=== PATIENT | female | born 1955 | race Caucasian/White ===

== ENCOUNTER 2018-06-18 12:55 | Observation (INO) | payer OTHER ==
[2018-06-18] MEDS ORDERED: Levofloxacin500mg IV 500 MG/100 ML BAG IV ONE (13:31)
[2018-06-18] MEDS ORDERED: ALBUTEROL 2.5 MG/3 ML NEB SOL ONE (13:31)
[2018-06-18] MEDS ORDERED: METHYLPREDNISOLONE 125 MG INJ ONE (13:31)
[2018-06-18] MEDS ORDERED: IPRATROPIUM BROM 0.5MG/2.5ML ONE (13:31)
[2018-06-18] MEDS ORDERED: NA CHLORIDE 0.9% 1,000 ML ONE (13:31)
--- NOTE | 2018-06-18 13:46 | RAD REPORT ---
EXAM DESCRIPTION: RAD - Chest Single View - 06/18/2018 1:41 pm CLINICAL HISTORY: COUGH Chest pain. COMPARISON: Chest Single View dated 02/04/2017; Chest Single View dated 02/03/2017; Chest Single View dated 10/13/2016; Chest Single View dated 10/12/2016 FINDINGS: Portable technique limits examination quality. A chronic left pleural effusion is suspected. Mild interstitial prominence may represent mild interst itial pulmonary edema. Linear opacity in the right lung base suggests subsegmental atelectasis. The h eart is normal in size. No displaced fractures. IMPRESSION: Mild CHF versus volume overload pattern.
[2018-06-18 13:58] LABS: Absolute Lymphocytes (CBC) 2.1 K/uL (0.7-4.9); Absolute Monocytes 0.8 K/uL (0.1-1.3); Basophils % 0.5 % (0-1.3); Eosinophils % 1.7 % (0-4.4); Hematocrit 45.4 % (36.0-45.0); Lymphocytes % 15.1 % (15.3-44.8); MCH 26.2 pg (27.0-35.0); MCV 79.3 fL (80-100); MPV 9.3 fL (7.6-11.3); Monocytes % 5.4 % (3.3-12.3); RBC Red Blood Cell Count 5.72 M/uL (3.86-4.86)
[2018-06-18 13:59] LABS: Arterial Blood Carboxyhemoglob 2.6 % (0-1.5); Blood Gas Oxyhemoglobin 82.5 % (94-97); Blood O2 Saturation 85.5 % (92-98.5)
[2018-06-18 14:06] LABS: Protime INR 1.01
[2018-06-18 14:15] LABS: ALT/SGPT 107 U/L (12-78); AST/SGOT 37 U/L (15-37); Albumin 3.9 g/dL (3.4-5.0); Alkaline Phosphatase 179 U/L (45-117); BUN Blood Urea Nitrogen 15 mg/dL (7-18); Bicarbonate 30 mmol/L (21-32); Bilirubin Direct 0.1 mg/dL (0-0.2); Bilirubin Total 0.6 mg/dL (0.2-1.0); Glucose Level 210 mg/dL (74-106); Lipase 89 U/L (73-393); NT PRO-BNP 294 pg/mL (<125); Potassium 4.4 mmol/L (3.5-5.1); Protein, Total 9.2 g/dL (6.4-8.2); Sodium Level 135 mmol/L (136-145); Troponin (Emerg Dept Use Only) < 0.02 ng/mL (0.0-0.045)
--- NOTE | 2018-06-18 15:06 | EDPHYS ---
Physician Documentation [facility] Name: Nakia Turcios Age: 62 yrs Sex: Female : 1955 Arrival Date: 06/18/2018 Time: 12:57 Bed 2 Private MD: Erasmo Jimenez ED Physician Luis Angel Romero HPI: 06/18 14:58 This 62 yrs old Female presents to ER via Wheelchair with complaints of LOW anuja O2. 14:58 The patient has shortness of breath at rest. Onset: The symptoms/episode began/occurred anuja 3 day(s) ago. Duration: The symptoms are continuous, and are steadily getting worse. The patient's shortness of breath is aggravated by coughing, exertion, is alleviated by elevating head, inhaler, nebulizer treatment, application of supplemental oxygen. The patient or guardian reports airway noise, cough, difficulty breathing. Modifying factors: The symptoms are alleviated by elevating head, the symptoms are aggravated by nothing. Associated signs and symptoms: The patient has no apparent associated signs or symptoms. Historical: - Allergies: 13:14 Codeine (Anaphylaxis); ss 13:14 FLU VACCINE; ss - Home Meds: 14:17 Albuterol Inhl 4 times per day [Active]; alprazolam 1 mg Oral tab 3 times per day for tw2 Anxiety [Active]; aspirin 81 mg Oral chew 1 tab once daily [Active]; atorvastatin 20 mg Oral tab 1 tab nightly [Active]; bupropion HCl 150 mg Oral TbER 1 tab 2 times per day [Active]; Chantix 1 mg Oral tab 2 times per day [Active]; clopidogrel 75 mg Oral tab [Active]; Daliresp 500 mcg Oral tab 1 tab once daily [Active]; Depakene 250 mg Oral cap twice a day [Active]; diltiazem HCl 120 mg Oral CDER 1 cap once daily [Active]; divalproex 250 mg Oral Tb24 2 tabs once daily [Active]; hydromorphone 4 mg Oral tab 1 tab every 4 hours [Active]; Insulin: Novolin 70/30 130 units in am and 105 at night Sub-Q [Active]; lisinopril 10 mg Oral tab [Active]; Lyrica 300mg Oral 2 times per day [Active]; mirtazapine 30 mg Oral tab [Active]; montelukast 10 mg Oral tab once daily [Active]; pravastatin 40 mg Oral tab 1 tab once daily [Active]; prednisone 10 mg Oral tab once daily [Active]; Proventil Inhl four times a day [Active]; sertraline 100 mg Oral tab 1 tab once daily [Active]; - PMHx: 13:14 Diabetes - IDDM; Hypertension; neuropathy; COPD; ss - PSHx: 13:14 Cholecystectomy; Hysterectomy; Appendectomy; ss - Immunization history:: Adult Immunizations up to date. - Social history:: Smoking status: Patient uses tobacco products, smokes one pack cigarettes per day. - Ebola Screening: : Patient denies exposure to infectious person Patient denies travel to an Ebola-affected area in the 21 days before illness onset. - Family history:: not pertinent. ROS: 14:59 Constitutional: Negative for fever, chills, and weight loss, Eyes: Negative for injury, anuja pain, redness, and discharge, ENT: Negative for injury, pain, and discharge, Neck: Negative for injury, pain, and swelling, Abdomen/GI: Negative for abdominal pain, nausea, vomiting, diarrhea, and constipation, Back: Negative for injury and pain, : Negative for injury, bleeding, discharge, and swelling, MS/Extremity: Negative for injury and deformity, Skin: Negative for injury, rash, and discoloration, Neuro: Negative for headache, weakness, numbness, tingling, and seizure, Psych: Negative for depression, anxiety, suicide ideation, homicidal ideation, and hallucinations, Allergy/Immunology: Negative for hives, rash, and allergies, Endocrine: Negative for neck swelling, polydipsia, polyuria, polyphagia, and marked weight changes, Hematologic/Lymphatic: Negative for swollen nodes, abnormal bleeding, and unusual bruising. 14:59 Cardiovascular: Positive for palpitations. 14:59 Respiratory: Positive for cough, dyspnea on exertion, shortness of breath, wheezing, inspiratory, expiratory. Exam: 15:00 Constitutional: This is a well developed, well nourished patient who is awake, alert, anuja and in no acute distress. Head/Face: Normocephalic, atraumatic. Eyes: Pupils equal round and reactive to light, extra-ocular motions intact. Lids and lashes normal. Conjunctiva and sclera are non-icteric and not injected. Cornea within normal limits. Periorbital areas with no swelling, redness, or edema. ENT: Nares patent. No nasal discharge, no septal abnormalities noted. Tympanic membranes are normal and external auditory canals are clear. Oropharynx with no redness, swelling, or masses, exudates, or evidence of obstruction, uvula midline. Mucous membranes moist. Neck: Trachea midline, no thyromegaly or masses palpated, and no cervical lymphadenopathy. Supple, full range of motion without nuchal rigidity, or vertebral point tenderness. No Meningismus. Chest/axilla: Normal chest wall appearance and motion. Nontender with no deformity. No lesions are appreciated. Cardiovascular: Regular rate and rhythm with a normal S1 and S2. No gallops, murmurs, or rubs. Normal PMI, no JVD. No pulse deficits. Abdomen/GI: Soft, non-tender, with normal bowel sounds. No distension or tympany. No guarding or rebound. No evidence of tenderness throughout. Back: No spinal tenderness. No costovertebral tenderness. Full range of motion. Female : Normal external genitalia. Skin: Warm, dry with normal turgor. Normal color with no rashes, no lesions, and no evidence of cellulitis. MS/ Extremity: Pulses equal, no cyanosis. Neurovascular intact. Full, normal range of motion. Neuro: Awake and alert, GCS 15, oriented to person, place, time, and situation. Cranial nerves II-XII grossly intact. Motor strength 5/5 in all extremities. Sensory grossly intact. Cerebellar exam normal. Normal gait. Psych: Awake, alert, with orientation to person, place and time. Behavior, mood, and affect are within normal limits. 15:00 Respiratory: mild respiratory distress is noted, Respirations: labored breathing, that is mild, Breath sounds: decreased breath sounds, rhonchi, stridor, is not appreciated, wheezing: inspiratory expiratory 15:23 Musculoskeletal/extremity: DVT Exam: No signs of deep vein thrombosis. no pain, no anuja tenderness, negative Homans' sign noted on exam, no appreciated bluish discoloration, no erythema, no increased warmth, swelling, that is mild, of the right leg, of the left leg. Vital Signs: 13:05 BP 157 / 68; Pulse 107; Resp 16; Pulse Ox 77% on R/A; tw2 13:14 BP 157 / 58; Pulse 111; Resp 22; Pulse Ox 72% on R/A; Weight 79.38 kg; Height 5 ft. 2 ss in. (157.48 cm); Pain 7/10; 14:05 BP 136 / 46; Pulse 108; Resp 20; Pulse Ox 89% on 4 lpm NC; tw2 14:13 Temp 97.9(TE); tw2 15:14 BP 121 / 81; Pulse 107; Resp 23; Pulse Ox 86% on 4 lpm NC; tw2 16:15 BP 137 / 66; Pulse 101; Resp 20; Pulse Ox 89% on 4 lpm NC; tw2 17:05 BP 151 / 69; Pulse 106; Resp 20; Pulse Ox 90% on 4 lpm NC; tw2 13:14 Body Mass Index 32.01 (79.38 kg, 157.48 cm) ss 13:05 pt placed on 3L NC, pt at 85% at this time, will continue to monitor tw2 MDM: 13:13 Patient medically screened. [facility] 15:01 Data reviewed: vital signs, nurses notes, lab test result(s), EKG, radiologic studies, anuja plain films. 06/18 13:17 Order name: Basic Metabolic Panel; Complete Time: 14:56 [facility] 06/18 13:17 Order name: CBC with Diff; Complete Time: 14:56 [facility] 06/18 13:17 Order name: LFT's; Complete Time: 14:56 [facility] 06/18 13:17 Order name: Magnesium; Complete Time: 14:56 [facility] 06/18 13:17 Order name: NT PRO-BNP; Complete Time: 14:56 [facility] 06/18 13:17 Order name: PT-INR; Complete Time: 14:56 [facility] 06/18 13:17 Order name: Troponin (emerg Dept Use Only); Complete Time: 14:56 [facility] 06/18 13:17 Order name: Blood Culture Adult (2) [facility] 06/18 13:17 Order name: Lipase; Complete Time: 14:56 [facility] 06/18 13:17 Order name: Procalcitonin; Complete Time: 14:56 [facility] 06/18 13:17 Order name: ABG; Complete Time: 14:56 [facility] 06/18 13:17 Order name: Urine Culture [facility] 06/18 15:22 Order name: Stool Culture [facility] 06/18 15:22 Order name: Fecal Leukocyte Stain [facility] 06/18 13:17 Order name: XRAY Chest (1 view); Complete Time: 14:56 [facility] 06/18 13:17 Order name: EKG; Complete Time: 13:18 [facility] 06/18 13:17 Order name: Cardiac monitoring; Complete Time: 13:39 [facility] 06/18 13:17 Order name: EKG - Nurse/Tech; Complete Time: 13:39 [facility] 06/18 13:17 Order name: IV Saline Lock; Complete Time: 13:39 [facility] 06/18 13:17 Order name: Labs collected and sent; Complete Time: 13:40 [facility] 06/18 13:17 Order name: O2 Per Protocol; Complete Time: 13:40 [facility] 06/18 15:11 Order name: CONS Physician Consult [facility] 06/18 15:11 Order name: Echo with Doppler [facility] 06/18 15:22 Order name: CDIFF [facility] 06/18 15:22 Order name: ABG [facility] 06/18 16:53 Order name: Add On-Lab [facility] 06/18 13:17 Order name: O2 Sat Monitoring; Complete Time: 13:40 [facility] Administered Medications: 13:20 Drug: NS 0.9% 1000 ml Route: IV; Rate: 125 ml/hr; Site: left antecubital; tw2 17:07 Follow up: IV Status: Infusion continued upon admission tw2 13:20 Drug: SOLU-Medrol 125 mg Route: IVP; Site: right antecubital; tw2 14:30 Follow up: Response: No adverse reaction tw2 13:20 Drug: Albuterol - atroVENT (3:1) (2.5 mg - 0.5 mg) 3 ml Route: Nebulizer; tw2 14:30 Follow up: Response: No adverse reaction tw2 13:35 Drug: levofloxacin 500 mg Volume: 100 ml; Route: IVPB; Infused Over: 60 mins; Site: tw2 left antecubital; 14:40 Follow up: Response: No adverse reaction; IV Status: Completed infusion tw2 Disposition: 06/18/18 15:05 Hospitalization ordered by Jose Eduardo Fowler for Observation. Preliminary diagnosis are Hypoxemia, Chronic obstructive pulmonary disease with (acute) exacerbation, Type 1 diabetes mellitus, Tobacco abuse counseling, Tobacco use, Elevated white blood cell count. - Bed requested for Telemetry/MedSurg (observation). - Status is Observation. tw2 - Condition is Fair. - Problem is new. - Symptoms have improved. UTI on Admission? No Signatures: Dispatcher [employer] EDMS Shasha Pendleton Flakita Mcgee RN RN Luis Angel Johnson MD MD cha Smirch, Shelby, RN RN ss Mi Acosta RN RN tw2 Corrections: (The following items were deleted from the chart) 15:46 15:05 Hospitalization Ordered by Jose Eduardo Fowler DO for Inpatient Admission. Preliminary dw diagnosis is Hypoxemia; Chronic obstructive pulmonary disease with (acute) exacerbation; Type 1 diabetes mellitus; Tobacco abuse counseling; Tobacco use; Elevated white blood cell count. Bed requested for Telemetry/MedSurg (Inpatient). Status is Inpatient Admission. Condition is Fair. Problem is new. Symptoms have improved. UTI on Admission? No. anuja 15:56 15:46 06/18/2018 15:05 Hospitalization Ordered by Jose Eduardo Fowler DO for Inpatient anuja Admission. Preliminary diagnosis is Hypoxemia; Chronic obstructive pulmonary disease with (acute) exacerbation; Type 1 diabetes mellitus; Tobacco abuse counseling; Tobacco use; Elevated white blood cell count. Bed requested for Telemetry/MedSurg (Inpatient). Status is Inpatient Admission. Condition is Fair. Problem is new. Symptoms have improved. UTI on Admission? No. dw 16:49 15:56 06/18/2018 15:05 Hospitalization Ordered by Jose Eduardo Fowler DO for Observation. bd Preliminary diagnosis is Hypoxemia; Chronic obstructive pulmonary disease with (acute) exacerbation; Type 1 diabetes mellitus; Tobacco abuse counseling; Tobacco use; Elevated white blood cell count. Bed requested for Telemetry/MedSurg (observation). Status is Observation. Condition is Fair. Problem is new. Symptoms have improved. UTI on Admission? No. anuja 17:57 16:49 06/18/2018 15:05 Hospitalization Ordered by Jose Eduardo Fowler DO for Observation. tw2 Preliminary diagnosis is Hypoxemia; Chronic obstructive pulmonary disease with (acute) exacerbation; Type 1 diabetes mellitus; Tobacco abuse counseling; Tobacco use; Elevated white blood cell count. Bed requested for Telemetry/MedSurg (observation). Status is Observation. Condition is Fair. Problem is new. Symptoms have improved. UTI on Admission? No. bd
--- NOTE | 2018-06-18 15:06 | ER ---
Nurse's Notes [facility] Name: Nakia Turcios Age: 62 yrs Sex: Female : 1955 Arrival Date: 06/18/2018 Time: 12:57 Bed 2 Private MD: Erasmo Jimenez Diagnosis: Hypoxemia;Chronic obstructive pulmonary disease with (acute) exacerbation;Type 1 diabetes mellitus;Tobacco abuse counseling;Tobacco use;Elevated white blood cell count Presentation: 06/18 13:09 Presenting complaint: Patient states: shortness of breath and anxiety for unknown ss period of time. Daughters report that they brought patient over after a doctor's visit because they are "fed up and tired" of taking care of their mother because she abuses her narcotic medication. Patient refuses to wear continuous home O2 at 3 L because she smokes. O2 at Dr's office was 87%, on arrival to ER it was 72%. Pt c/o pain to bilateral lower extremities and is being treated by a foot doctor for wounds. Transition of care: patient was not received from another setting of care. Onset of symptoms is unknown. Risk Assessment: Do you want to hurt yourself or someone else? Patient reports no desire to harm self or others. Initial Sepsis Screen: Does the patient meet any 2 criteria? No. Patient's initial sepsis screen is negative. Does the patient have a suspected source of infection? No. Patient's initial sepsis screen is negative. Care prior to arrival: None. 13:09 Method Of Arrival: Wheelchair ss 13:09 Acuity: JESUSITA 2 ss Historical: - Allergies: 13:14 Codeine (Anaphylaxis); ss 13:14 FLU VACCINE; ss - Home Meds: 14:17 Albuterol Inhl 4 times per day [Active]; alprazolam 1 mg Oral tab 3 times per day for tw2 Anxiety [Active]; aspirin 81 mg Oral chew 1 tab once daily [Active]; atorvastatin 20 mg Oral tab 1 tab nightly [Active]; bupropion HCl 150 mg Oral TbER 1 tab 2 times per day [Active]; Chantix 1 mg Oral tab 2 times per day [Active]; clopidogrel 75 mg Oral tab [Active]; Daliresp 500 mcg Oral tab 1 tab once daily [Active]; Depakene 250 mg Oral cap twice a day [Active]; diltiazem HCl 120 mg Oral CDER 1 cap once daily [Active]; divalproex 250 mg Oral Tb24 2 tabs once daily [Active]; hydromorphone 4 mg Oral tab 1 tab every 4 hours [Active]; Insulin: Novolin 70/30 130 units in am and 105 at night Sub-Q [Active]; lisinopril 10 mg Oral tab [Active]; Lyrica 300mg Oral 2 times per day [Active]; mirtazapine 30 mg Oral tab [Active]; montelukast 10 mg Oral tab once daily [Active]; pravastatin 40 mg Oral tab 1 tab once daily [Active]; prednisone 10 mg Oral tab once daily [Active]; Proventil Inhl four times a day [Active]; sertraline 100 mg Oral tab 1 tab once daily [Active]; - PMHx: 13:14 Diabetes - IDDM; Hypertension; neuropathy; COPD; ss - PSHx: 13:14 Cholecystectomy; Hysterectomy; Appendectomy; ss - Immunization history:: Adult Immunizations up to date. - Social history:: Smoking status: Patient uses tobacco products, smokes one pack cigarettes per day. - Ebola Screening: : Patient denies exposure to infectious person Patient denies travel to an Ebola-affected area in the 21 days before illness onset. - Family history:: not pertinent. Screenin:10 Abuse screen: Denies threats or abuse. Nutritional screening: No deficits noted. tw2 Tuberculosis screening: No symptoms or risk factors identified. Fall Risk None identified. Assessment: 13:10 General: Appears in no apparent distress. Behavior is cooperative, drowsy. Pain: Denies tw2 pain. Neuro: Level of Consciousness is obeys commands, Oriented to person, place, situation. Cardiovascular: Heart tones S1 S2 Patient's skin is warm and dry. Respiratory: Airway is patent Respiratory effort is even, labored, Respiratory pattern is regular, tachypnea Breath sounds with wheezes bilaterally. GI: No signs and/or symptoms were reported involving the gastrointestinal system. Abdomen is round non-distended, Bowel sounds present X 4 quads. : No signs and/or symptoms were reported regarding the genitourinary system. EENT: No signs and/or symptoms were reported regarding the EENT system. Musculoskeletal: Range of motion: intact in all extremities. 13:10 Derm: Parent/caregiver reports the patient having "she has diabetic foot wounds to both tw2 of her feet and they told her that for sure one of them needs to be amputated". 14:08 Reassessment: Patient appears in no apparent distress at this time. No changes from tw2 previously documented assessment. Patient and/or family updated on plan of care and expected duration. Pain level reassessed. 15:15 Reassessment: Patient appears in no apparent distress at this time. No changes from tw2 previously documented assessment. Patient and/or family updated on plan of care and expected duration. Pain level reassessed. 15:33 Reassessment: Dr. Fowler at bedside at this time, pts family at bedside as well, pts tw2 daughter states "i just want her to get off the xanax and take care of herself, i dont know if i can have her living with me". 16:15 Reassessment: Patient appears in no apparent distress at this time. No changes from tw2 previously documented assessment. Patient and/or family updated on plan of care and expected duration. Pain level reassessed. 17:06 Reassessment: Patient appears in no apparent distress at this time. No changes from tw2 previously documented assessment. Patient and/or family updated on plan of care and expected duration. Pain level reassessed. Vital Signs: 13:05 BP 157 / 68; Pulse 107; Resp 16; Pulse Ox 77% on R/A; tw2 13:14 BP 157 / 58; Pulse 111; Resp 22; Pulse Ox 72% on R/A; Weight 79.38 kg; Height 5 ft. 2 ss in. (157.48 cm); Pain 7/10; 14:05 BP 136 / 46; Pulse 108; Resp 20; Pulse Ox 89% on 4 lpm NC; tw2 14:13 Temp 97.9(TE); tw2 15:14 BP 121 / 81; Pulse 107; Resp 23; Pulse Ox 86% on 4 lpm NC; tw2 16:15 BP 137 / 66; Pulse 101; Resp 20; Pulse Ox 89% on 4 lpm NC; tw2 17:05 BP 151 / 69; Pulse 106; Resp 20; Pulse Ox 90% on 4 lpm NC; tw2 13:14 Body Mass Index 32.01 (79.38 kg, 157.48 cm) ss 13:05 pt placed on 3L NC, pt at 85% at this time, will continue to monitor tw2 ED Course: 12:57 Patient arrived in ED. rg4 12:58 Erasmo Jimenez MD is Private Physician. rg4 13:01 Placed in gown. Bed in low position. Side rails up X2. Adult w/ patient. Cardiac tw2 monitor on. Pulse ox on. NIBP on. Warm blanket given. 13:04 Mi Acosta RN is Primary Nurse. tw2 13:10 Inserted saline lock: 22 gauge in left antecubital area, using aseptic technique. Blood tw2 collected. 13:13 Triage completed. ss 13:13 Luis Angel Romero MD is Attending Physician. anuja 13:14 Arm band placed on right wrist. ss 13:39 X-ray completed. Portable x-ray completed in exam room. Patient tolerated procedure mh1 well. 13:39 Blood Culture Adult (2) Sent. tw2 13:40 XRAY Chest (1 view) In Process Unspecified. EDMS 13:46 EKG done, by electronic engineering technician. reviewed by Luis Angel Romero MD. tc 15:04 Jose Eduardo Fowler DO is Hospitalizing Provider. anuja 17:14 Awaiting: attempted to call report at 1702, left on hold over 10 minutes. tw2 17:18 No provider procedures requiring assistance completed. Patient admitted, IV remains in tw2 place. Administered Medications: 13:20 Drug: NS 0.9% 1000 ml Route: IV; Rate: 125 ml/hr; Site: left antecubital; tw2 17:07 Follow up: IV Status: Infusion continued upon admission tw2 13:20 Drug: SOLU-Medrol 125 mg Route: IVP; Site: right antecubital; tw2 14:30 Follow up: Response: No adverse reaction tw2 13:20 Drug: Albuterol - atroVENT (3:1) (2.5 mg - 0.5 mg) 3 ml Route: Nebulizer; tw2 14:30 Follow up: Response: No adverse reaction tw2 13:35 Drug: levofloxacin 500 mg Volume: 100 ml; Route: IVPB; Infused Over: 60 mins; Site: tw2 left antecubital; 14:40 Follow up: Response: No adverse reaction; IV Status: Completed infusion tw2 Outcome: 15:05 Decision to Hospitalize by Provider. anuja 17:18 Admitted to Med/surg accompanied by nurse, room 231, Report called to Jayleen. RN tw2 17:18 Condition: stable 17:18 Instructed on the need for admit. 17:57 Patient left the ED. tw2 Signatures: Dispatcher [employer] EDLuis Angel Martin MD MD cha Harvey, Martha 1 Renetta Flores, RN RN Grace Dinh, legal biller EKG Ttc Mi Acosta RN RN tw2 Summer Tapia 4 Corrections: (The following items were deleted from the chart) 14:21 13:10 Derm: No signs and/or symptoms reported regarding the dermatologic system. tw2 tw2 15:15 14:08 Reassessment: Patient appears in no apparent distress at this time. No changes tw2 from previously documented assessment. Patient and/or family updated on plan of care and expected duration. Pain level reassessed. Patient is alert, oriented x 3, equal unlabored respirations, skin warm/dry/pink. tw2
[2018-06-18] MEDS ORDERED: D50W 25 GM/50 ML SYRINGE IV PRN (15:08)
[2018-06-18] MEDS ORDERED: GLUCAGON 1 MG/VIAL IM PRN (15:08)
[2018-06-18] MEDS ORDERED: HYDROCODONE/APAP 7.5/325 MG TAB PO PRN (15:47)
[2018-06-18] MEDS ORDERED: ACETAMINOPHEN 500 MG TAB PO PRN (15:47)
[2018-06-18] MEDS ORDERED: TRAMADOL HCL 50 MG TAB PO PRN (15:47)
[2018-06-18] MEDS ORDERED: ALBUTEROL 2.5 MG/3 ML NEB SOL NEB PRN (15:47)
[2018-06-18] MEDS ORDERED: ONDANSETRON 4 MG/2 ML VIAL IV PRN (15:47)
[2018-06-18] MEDS ORDERED: LORAZEPAM 0.5 MG TABLET PO PRN (15:47)
[2018-06-18] MEDS ORDERED: IPRATROPIUM BROM 0.5MG/2.5ML NEB PRN (15:47)
--- NOTE | 2018-06-18 15:47 | P.HP ---
Certification for Inpatient Patient admitted to: Observation With expected LOS: <2 Midnights Patient will require the following post-hospital care: Home Health Services Practitioner: I am a practitioner with admitting privileges, knowledge of patient current condition, hospital course, and medical plan of care. Services: Services provided to patient in accordance with Admission requirements found in Title 42 Section 412.3 of the Code of Federal Regulations Patient History Date of Service: 06/18/18 Primary Care Provider: Dr. Whalen; Pulmonary-Dr. Chau Reason for admission: Shortness of breath History of Present Illness: 62-year-old female presented urgency room with increasing shortness of breath. Patient with history of severe COPD on chronic oxygen. Patient reports increasing shortness of breath over the last several days. He has had an increased productive cough. She denies any fever, chills. Patient is non compliant with her oxygen at times. This was reported by family. When she is not using her oxygen her oxygen level drops below 80. Patient still smokes regularly at 1 pack per day. Most recently in patient is seen by a wound care for 2 ulcers to the lower extremity. These were well controlled. Patient recently on antibiotic therapy. Patient reports diarrhea. She denies any abdominal pain. Patient was evaluated in the emergency room. White count 14.2. Hemoglobin 15. Sodium 135, potassium 4.4. BUN of 15, creatinine 0.8 with a blood sugar of 210. AST 107, ALT 179. Troponin less than 0.02. BNP 294. Pro calcitonin negative. Chest x-ray shows possible pulmonary edema. Patient admitted for COPD exacerbation. When I saw the patient ER, she appeared comfortable. She desired to smoke. Patient with multiple medical problems including COPD on chronic oxygen, poor compliance, tobacco use, diabetes mellitus type 2 on insulin, hypertension, chronic pain and depression with anxiety. Allergies codeine [Codeine] Allergy (Intermediate, Verified 02/03/17 19:52) Itching/Hives/Rash flu vaccine Allergy (Uncoded 02/03/17 19:52) Anaphylaxis Home medications list reviewed: Yes Home Medications: Aspirin 81 mg PO DAILY 01/30/12 Divalproex ER [Depakote *ER] 250 mg PO BID 01/19/15 ALPRAZolam [Alprazolam] 1 tab PO TIDP PRN 09/21/16 Clopidogrel Bisulfate [Plavix] 1 tab PO DAILY 09/21/16 Lisinopril [Zestril] 10 mg PO PRN 09/21/16 Pregabalin [Lyrica] 300 cap PO BID 09/21/16 Sertraline [Zoloft*] 1 tab PO DAILY 09/21/16 Insulin 70/30 NPH/Reg Human [Novolin 70/30*] 0 unit SQ SEECOM 02/03/17 Bupropion HCl [Wellbutrin Sr] 150 mg PO BID 10/21/17 Mirtazapine 30 mg PO BEDTIME 10/21/17 Montelukast [Singulair*] 1 tab PO BEDTIME 10/21/17 Pravastatin Sodium 40 mg PO DAILY 10/21/17 Tiotropium Ovid [Spiriva] 1 puff PO DAILY 10/21/17 predniSONE [Prednisone*] 10 mg PO DAILY 10/21/17 Albuterol Sulfate [Proventil Hfa] 2 inhaler IH QID PRN 11/22/17 - Past Medical/Surgical History Diabetic: Yes -: Neuropathy -: Diabetes mellitus type 2 insulin-dependent -: A-Fib -: COPD, severe, oxygen-dependent -: Depression with anxiety -: Hyperlipidemia -: Hypertension -: Chronic migraines -: Chronic pain -: Chronic ulcers to the lower extremity -: PVD -: APPENDECTOMY, LEFT KNEE surgery, FOOT SX, EYE surgery -: COMPLETE HYSTERECTOMY , PLATE PLACED ON right WRIST -: 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 She also has a common-law partner. She does not work. Patient is DNR. - Family History Father -: Heart disease, Lung disease Mother -: Lung disease, Diabetes - Social History Smoking Status: Heavy Tobacco smoker (>10 cigarettes/day) Smoking therapy provided: Yes Patient receptive to therapy: No Alcohol use: No CD- Drugs: No Caffeine use: Yes Place of Residence: Home Review of Systems General: As per HPI Eyes: Unremarkable ENT: Unremarkable Respiratory: Cough, Shortness of Breath, Wheezing, As per HPI Cardiovascular: Unremarkable Gastrointestinal: Diarrhea, As per HPI Genitourinary: Unremarkable Musculoskeletal: Unremarkable Integumentary: As per HPI, Unremarkable Neurological: Unremarkable Lymphatics: Unremarkable Physical Examination - Physical Exam General: Alert, In no apparent distress, Oriented x3, Cooperative HEENT: Atraumatic, Normocephalic, PERRLA, Mucous membr. moist/pink Neck: Supple, No Thyromegaly Respiratory: Crackles/rales (Mild bilateral), Expiratory wheezes (Bilateral) Cardiovascular: Normal pulses, Regular rate/rhythm Gastrointestinal: Normal bowel sounds, Soft and benign, Non-distended, No tenderness, No masses, No rebound, No guarding Musculoskeletal: No contractures, No erythema, No tenderness, No warmth Integumentary: Other (Chronic ulcers to the lower extremity stable. No significant edema, exudate, or erythema noted) Neurological: Normal speech, Normal strength at 5/5 x4 extr, Normal tone, Normal affect - Studies Laboratory Data (last 24 hrs) 06/18/18 13:10: PT 11.9, INR 1.01 06/18/18 13:10: WBC 14.2 H, Hgb 15.0, Hct 45.4 H, Plt Count 243 06/18/18 13:10: Sodium 135 L, Potassium 4.4, BUN 15, Creatinine 0.80, Glucose 210 H, Magnesium 2.0, Total Bilirubin 0.6, AST 37, ALT 107 H, Alkaline Phosphatase 179 H, Lipase 89 Assessment and Plan - Plan Impression: Shortness of breath secondary to acute on chronic COPD exacerbation, oxygen dependent, poor compliance, and with hypoxia on oxygen. Pulmonary edema likely acute on chronic diastolic CHF Diabetes mellitus type 2, insulin-dependent, uncontrolled Hypertension Hyperlipidemia Depression with anxiety Diabetic neuropathy with chronic pain Diarrhea with recent antibiotic use Chronic ulcers to the feet bilateral PVD Tobacco abuse Plan: Shortness of breath secondary to acute on chronic COPD exacerbation, oxygen dependent, poor compliance, and with hypoxia on oxygen: Patient will be admitted for COPD exacerbation. Will continue with oxygen to maintain sats above 88%. Respiratory to adjust oxygen. Will start prednisone 20 mg 1 pill twice daily. Will continue with Brovana, albuterol and Atrovent. Will consult pulmonology to further evaluate. Patient will require home health and physical therapy at discharge. Will consult director social service to help in this process. Family desires patient to go to a long-term facility. Will have director social service provide information. Family is also concerned with her pain and anxiety use. Will need to obtain all medications to review. Patient seen by pain management. Will try to decrease or limit medication for pain and anxiety. Will reassess tomorrow. Anticipate possible discharge in the next day. Tobacco cessation addressed in detail. Patient is not to go outside. Compliance with follow up and medications will be addressed. Pulmonary edema likely acute on chronic diastolic CHF: X-ray shows pulmonary edema. Patient with acute on chronic diastolic CHF. Will start Lasix 20 mg IV twice daily. Will recheck x-ray in the morning. Will continue 1500 cc per day fluid restriction. Will need to review home medications. Diabetes mellitus type 2, insulin-dependent, uncontrolled: Will start sliding scale. Will need to obtain home medication and restart. Hypertension: Will need to obtain home medication and restart. Will monitor and adjust appropriately. Hyperlipidemia: Will need to obtain home medication and restart. Depression with anxiety: Will need to review all home medications and restart. Will try to limit benzodiazepine use. This will likely need to be weaned off over time. This can be further addressed as an outpatient. Diabetic neuropathy with chronic pain: Will need to review and restart home medication Diarrhea with recent antibiotic use: Will check for C diff colitis. Will provide probiotic Chronic ulcers to the feet bilateral: Ulcers to the feet bilateral appear stable. Patient seen by wound care. Will continue with wound care recommendations. PVD: Will start aspirin and DVT prophylaxis. Tobacco abuse: Patient has been non compliant with tobacco use. Will provide nicotine patch. Patient is to remain in the hospital and not go outside to smoke. Discharge Plan: Home Plan to discharge in: 24 Hours - Advance Directives Does patient have a Living Will: No Does patient have a Durable POA for Healthcare: No - Code Status/Comfort Care Code Status Assessed: Yes (Patient DNR. This was addressed with family present. ) Time Spent Managing Pts Care (In Minutes): 55
[2018-06-18] MEDS: INSULIN -REGULAR HUMAN 50 UNIT/0.5 ML ML SQ SCH ×2 (16:30→21:01)
[2018-06-18 18:27] LABS: Thyroid Stimulating Hormone 0.549 uIU/mL (0.360-3.740)
[2018-06-18 20:23] LABS: Urine Appearance CLEAR; Urine Bilirubin NEGATIVE (NEG); Urine Blood NEGATIVE (NEG); Urine Color YELLOW; Urine Glucose 3+ (NEG); Urine Protein NEGATIVE (NEG); Urine Specific Gravity >=1.030 (1.005-1.030); Urine Urobilinogen 0.2 mg/dL (0.2-1.0)
[2018-06-18 20:24] LABS: Urine Microscopic Reflex NO UMIC
[2018-06-18] MEDS: ARFORMOTEROL TARTRATE 15 MCG/2 ML VIAL.NEB NEB SCH (20:53)
[2018-06-18] MEDS ORDERED: ATORVASTATIN 10 MG TAB PO SCH (21:00)
[2018-06-18] MEDS: FUROSEMIDE 20 MG/ 2ML VIAL IV SCH (21:02)
[2018-06-18] MEDS: LACTOBACILLUS/ACIDOPHILUS TAB PO SCH (21:03)
[2018-06-18] MEDS: ENOXAPARIN 40 MG/0.4 ML SQ SCH (21:03)
[2018-06-18] MEDS: predniSONE 20 MG TAB PO SCH (21:04)
[2018-06-18] MEDS: NICOTINE 21 MG/PAT TD SCH (21:04)
[2018-06-18 23:12] LABS: CKMB Creatine Kinase MB < 1.0 ng/mL (0.3-3.6); Creatine Phosphokinase 27 U/L (26-192); Troponin I < 0.02 ng/mL (0.0-0.045)
[2018-06-19 06:12] LABS: Absolute Lymphocytes (CBC) 0.9 K/uL (0.7-4.9); Absolute Monocytes 0.2 K/uL (0.1-1.3); Absolute Neutrophil 6.3 K/uL (1.8-8.0); Basophils % 0.8 % (0-1.3); Eosinophils % 0.1 % (0-4.4); Hematocrit 38.2 % (36.0-45.0); Lymphocytes % 12.5 % (15.3-44.8); MCH 26.7 pg (27.0-35.0); MCV 78.7 fL (80-100); RBC Red Blood Cell Count 4.85 M/uL (3.86-4.86)
[2018-06-19 06:26] VITALS: BMI 28.3
[2018-06-19 06:39] LABS: Potassium 4.3 mmol/L (3.5-5.1)
[2018-06-19 06:41] LABS: CKMB Creatine Kinase MB < 1.0 ng/mL (0.3-3.6); Creatine Phosphokinase 24 U/L (26-192); Troponin I < 0.02 ng/mL (0.0-0.045)
--- NOTE | 2018-06-19 06:53 | EKG ---
Test Date: 2018-06-18 Test Time: 13:42:53 Bulk System Operator: ML MEASUREMENT RESULTS: Intervals: Rate: 100 NV: 118 QRSD: 122 QT: 368 QTc: 474 [place]: P: 40 NV: 118 QRS: 61 T: 41 INTERPRETIVE STATEMENTS: Normal sinus rhythm Right bundle branch block Abnormal ECG Compared to ECG 02/03/2017 17:33:17 No significant changes Electronically Signed On 06-19-18 06:50:49 CDT by Víctor Kurtz
[2018-06-19] MEDS ORDERED: PANTOPRAZOLE 40MG TABLET PO SCH (07:30)
[2018-06-19] MEDS ORDERED: INSULIN GLARGINE 100 UNITS/ML SQ SCH (08:00)
--- NOTE | 2018-06-19 08:11 | RAD REPORT ---
EXAM DESCRIPTION: RAD - Chest Pa And Lat (2 Views) - 06/19/2018 7:37 am CLINICAL HISTORY: CHF, shortness of breath COMPARISON: June 18 TECHNIQUE: PA and lateral views of the chest were obtained. FINDINGS: The lungs are normal volume. Patient has a baseline of mild chronic interstitial lung dise ase. Heart size is normal. Upper lobe vasculature is within normal limits. Bilateral lung base opac ification is present worse on the left. This appears progressive from the prior day study. Findings a re most apparent in the lingula. Chest findings are more favorable for bilateral lung base pneumonia rather than CHF. This may be infe ctious or aspiration pneumonia superimposed on a resolving failure. No pneumothorax. No enlarging pleural effusion. No acute bony finding noted. No aortic abnormality. IMPRESSION: Bilateral lung base opacification, left greater than right, progressive from the prior d ay study. Heart size and vasculature within normal limits. Findings favor bilateral lung base pneumonia rather than significant failure or volume overload.
[2018-06-19] MEDS: ARFORMOTEROL TARTRATE 15 MCG/2 ML VIAL.NEB NEB SCH (08:25)
[2018-06-19] MEDS: INSULIN -REGULAR HUMAN 50 UNIT/0.5 ML ML SQ SCH ×2 (08:57→12:22)
[2018-06-19] MEDS: FUROSEMIDE 20 MG/ 2ML VIAL IV SCH (08:59)
[2018-06-19] MEDS: ENOXAPARIN 40 MG/0.4 ML SQ SCH (08:59)
[2018-06-19] MEDS ORDERED: ASPIRIN EC 81 MG TAB PO SCH (09:00)
[2018-06-19] MEDS: NICOTINE 21 MG/PAT TD SCH (09:00)
[2018-06-19] MEDS: predniSONE 20 MG TAB PO SCH (09:40)
[2018-06-19] MEDS: LACTOBACILLUS/ACIDOPHILUS TAB PO SCH (09:40)
[2018-06-19] MEDS ORDERED: TRAMADOL HCL 50 MG TAB PO PRN (10:47)
[2018-06-19] MEDS ORDERED: LOPERAMIDE HCL 2 MG CAPSULE PO PRN (10:47)
[2018-06-19] MEDS ORDERED: TIZANIDINE 4 MG TABLET PO PRN (10:47)
--- NOTE | 2018-06-19 11:01 | P.DS ---
Admission Date: 06/18/18 Discharge Date: 06/19/18 Primary Care Provider: Dr. Whalen; Pulmonary-Dr. Chau Disposition: DC HOME/HOME HEALTH CARE Discharge Condition: GOOD Reason for Admission: Shortness of breath Consultations: Pulmonary-Dr. Chau Procedures: Medical Problem List: Shortness of breath secondary to acute on chronic COPD exacerbation, oxygen dependent, poor compliance, and with hypoxia on oxygen. Mild Pulmonary edema likely acute on chronic diastolic CHF Diabetes mellitus type 2, insulin-dependent, uncontrolled Hypertension Hyperlipidemia Depression with anxiety Diabetic neuropathy with chronic pain Chronic diarrhea Chronic ulcers to the feet bilateral monitored and treated by a wound care- podiatry PVD Tobacco abuse Seasonal allergies Chronic headaches Suspect obstructive sleep apnea Brief History of Present Illness: 62-year-old female presented urgency room with increasing shortness of breath. Patient with history of severe COPD on chronic oxygen. Patient reports increasing shortness of breath over the last several days. He has had an increased productive cough. She denies any fever, chills. Patient is non compliant with her oxygen at times. This was reported by family. When she is not using her oxygen her oxygen level drops below 80. Patient still smokes regularly at 1 pack per day. Most recently in patient is seen by a wound care for 2 ulcers to the lower extremity. These were well controlled. Patient recently on antibiotic therapy. Patient reports diarrhea. She denies any abdominal pain. Patient was evaluated in the emergency room. White count 14.2. Hemoglobin 15. Sodium 135, potassium 4.4. BUN of 15, creatinine 0.8 with a blood sugar of 210. AST 107, ALT 179. Troponin less than 0.02. BNP 294. Pro calcitonin negative. Chest x-ray shows possible pulmonary edema. Patient admitted for COPD exacerbation. When I saw the patient ER, she appeared comfortable. She desired to smoke. Patient with multiple medical problems including COPD on chronic oxygen, poor compliance, tobacco use, diabetes mellitus type 2 on insulin, hypertension, chronic pain and depression with anxiety. Hospital Course: Patient presented with shortness of breath and hypoxia secondary to acute on chronic COPD exacerbation. Patient is oxygen dependent. Patient with poor compliance on her use of oxygen at times. Chest x-ray showed possible pulmonary edema as well. Patient treated for COPD. Pro calcitonin negative. Repeat x-ray shows improvement. No signs of infection noted. Case discussed at length with pulmonology. Her overall care concerning her COPD was addressed in detail with the patient and family. Family is concerned with her compliance. At discharge patient will continue with Spiriva 1 puff daily and albuterol 1 unit dose 3 times a day as needed for shortness of breath. New medication- Brovana 1 unit dose twice daily will be added. The patient will also continue with prednisone 20 mg 1 pill twice daily for 5 days then 1 pill once daily for 5 days. Patient is to continue with oxygen to maintain sats above 88%. Compliance with her use of oxygen will need to be enforced and monitored. Recommendations for the patient follow up with pulmonology in 1-2 weeks to monitor progress and continue address. Patient also had pulmonary edema likely related to acute on chronic diastolic CHF. This improved with diuretic therapy. Echocardiogram ordered. At discharge she will continue with new medication-Lasix 20 mg daily. The patient will need to continue with a 1500 cc per day fluid restriction and low-salt diet. She is to monitor her weight daily. If her weight increases by more than 5 lb she is to contact her PCP for further recommendation. Lasix may be able to be weaned off if significantly improved. Recommendation to recheck chest x-ray in 2-4 weeks to monitor resolution. Patient with diabetes type 2, insulin-dependent. Patient will continue with her insulin regimen of insulin 70/30. Recommendation is to maintain blood sugars less 140 fasting and less than 2 after meals. Further adjustment can be done by her PCP. Patient has hypertension. Patient will continue with lisinopril 10 mg daily. Recommendation is to maintain blood pressures less 150/80. Further adjustment can be done by her PCP. Patient has hyperlipidemia. Patient may continue with pravastatin 40 mg daily. Patient with PVD. Patient will continue with aspirin 81 mg daily and Plavix 75 mg daily. Patient with depression and anxiety. Patient will continue with sertraline 100 mg daily and Depakote ER 250 mg 1 pill twice daily. Patient may continue with alprazolam 1 mg 1 pill at night as needed for insomnia. Recommendation is for the patient to establish care with psychiatry to further monitor and address her medications. Further adjustment in medication can be done by Psychiatry. Recommendation is to limit use of alprazolam and eventually wean off alprazolam. This was discussed in detail with the patient and family. This can be further addressed by psychiatry or her PCP. Recommendation that only 1 physician is to provide and monitor control of alprazolam as an outpatient. Patient with diabetic neuropathy and chronic pain. Patient is seen by pain management. Recommendation is to continue with Lyrica 300 mg 1 pill twice daily. Patient may continue with tramadol 50 mg 1 pill twice daily as needed for pain. Recommendation is to limit use of the tramadol and eventually wean off tramadol. This was discussed in detail with the patient and family. Recommendation that only 1 physician is to provide and monitor control of tramadol as an outpatient. Patient also takes Zanaflex 4 mg 1 pill twice daily as needed for muscle spasm. Recommendation to limit use of Zanaflex and eventually wean off eventually. This was discussed in detail with the patient and family. Recommendation that only 1 person is to provide and monitor control of Zanaflex as an outpatient. This can be done by her chronic pain management physician. Patient previously on Flexeril. Flexeril has been discontinued at discharge. Patient also takes Tylenol for pain. Patient may continue with Tylenol 500 mg 1 pill 4 times a day as needed for pain. Patient has chronic diarrhea. Patient may continue with Imodium 2 mg 1 pill 3 times a day as needed for diarrhea. Stool cultures obtained. This can be followed up as an outpatient. Recommendation is for the patient follow up with GI as an outpatient to further monitor and address. Patient has chronic foot ulcers bilateral. She is seen by wound care and Podiatry. Recommendation to continue with wound care and follow up with podiatry as directed. Patient with tobacco abuse. Tobacco cessation education addressed in detail. Nicotine patch will be provided. This can be further monitored and addressed by her PCP. Patient with seasonal allergies. Patient may continue with Kamila daily. Benadryl is to be discontinued. Patient also takes fish oil and zinc. Patient may continue with his medication. Patient may have underlying obstructive sleep apnea. Recommendation is for the patient to follow up with pulmonology to further evaluate. Vital Signs/Physical Exam: Temp Pulse Resp BP Pulse Ox 97.1 F 94 H 16 150/63 H 95 06/19/18 06:24 06/19/18 08:59 06/19/18 06:24 06/19/18 08:59 06/19/18 06:24 General: Alert, In no apparent distress, Oriented x3, Cooperative HEENT: Atraumatic, Mucous membr. moist/pink Neck: Supple Respiratory: Clear to auscultation bilaterally, Normal air movement Cardiovascular: Normal pulses, Regular rate/rhythm Gastrointestinal: Normal bowel sounds, Soft and benign, Non-distended, No tenderness, No masses, No rebound, No guarding Musculoskeletal: No erythema, No tenderness, No warmth Integumentary: No tenderness/swelling, No erythema, No warmth, No cyanosis Neurological: Normal speech, Normal strength at 5/5 x4 extr, Normal tone, Normal affect Laboratory Data at Discharge: WBC 7.5 K/uL (4.3-10.9) D 06/19/18 05:58 Hgb 12.9 g/dL (12.0-15.0) 06/19/18 05:58 Hct 38.2 % (36.0-45.0) D 06/19/18 05:58 Plt Count 182 K/uL (152-406) D 06/19/18 05:58 PT 11.9 SECONDS (9.5-12.5) 06/18/18 13:10 INR 1.01 06/18/18 13:10 Sodium 131 mmol/L (136-145) L 06/19/18 05:58 Potassium 4.3 mmol/L (3.5-5.1) 06/19/18 05:58 BUN 18 mg/dL (7-18) 06/19/18 05:58 Creatinine 0.90 mg/dL (0.55-1.3) 06/19/18 05:58 Glucose 388 mg/dL (74-106) H 06/19/18 05:58 Magnesium 2.0 mg/dL (1.8-2.4) 06/19/18 05:58 Total Bilirubin 0.6 mg/dL (0.2-1.0) 06/18/18 13:10 AST 37 U/L (15-37) 06/18/18 13:10 ALT 107 U/L (12-78) H 06/18/18 13:10 Alkaline Phosphatase 179 U/L (45-117) H 06/18/18 13:10 Troponin I < 0.02 ng/mL (0.0-0.045) 06/19/18 05:58 Triglycerides 316 mg/dL (<150) H 06/19/18 05:58 Cholesterol 181 mg/dL (<200) 06/19/18 05:58 HDL Cholesterol 37 mg/dL (40-60) L 06/19/18 05:58 Cholesterol/HDL Ratio 4.89 06/19/18 05:58 Lipase 89 U/L (73-393) 06/18/18 13:10 Home Medications: Aspirin 81 mg PO DAILY 01/30/12 Divalproex ER [Depakote *ER] 250 mg PO BID 01/19/15 Clopidogrel Bisulfate [Plavix] 1 tab PO DAILY 09/21/16 Lisinopril [Zestril] 10 mg PO DAILY 09/21/16 Pregabalin [Lyrica] 300 cap PO BID 09/21/16 Sertraline [Zoloft*] 1 tab PO DAILY 09/21/16 Insulin 70/30 NPH/Reg Human [Novolin 7030*] 0 unit SQ SEECOM 02/03/17 Montelukast [Singulair*] 1 tab PO BEDTIME 10/21/17 Pravastatin Sodium 40 mg PO DAILY 10/21/17 Tiotropium [place] [Spiriva] 1 puff PO DAILY 10/21/17 Albuterol Sulfate [Proventil Hfa] 2 inhaler IH QID PRN 11/22/17 ALPRAZolam [Xanax*] 1 mg PO BEDTIME tab 06/19/18 Albuterol Neb [Proventil 0.083% Neb Soln] 2.5 mg NEB TID PRN #90 amp 06/19/18 Arformoterol Tartrate [Brovana] 15 mcg NEB BIDRESP #60 vial.neb 06/19/18 Furosemide [Lasix] 20 mg PO DAILY #30 tab 06/19/18 Loperamide [Imodium*] 2 mg PO TID PRN 06/19/18 Nicotine [Nicoderm*] 21 mg TD BEDTIME #30 patch.td24 06/19/18 [place]-3 Fatty Acids/Fish Oil [Eql [place]-3 Fish Oil 1,000 mg] 1 each PO DAILY 12/02 Tizanidine [Zanaflex*] 4 mg PO BID PRN tab 06/19/18 Zinc 50 mg PO DAILY 06/19/18 predniSONE [Prednisone*] 20 mg PO SEECOM #15 tab 06/19/18 traMADol HCL [Ultram*] 50 mg PO Q12HP PRN tab 06/19/18 New Medications: Albuterol Neb [Proventil 0.083% Neb Soln] 2.5 mg NEB TID PRN #90 amp PRN Reason: Shortness Of Breath Arformoterol Tartrate [Brovana] 15 mcg NEB BIDRESP #60 vial.neb Furosemide [Lasix] 20 mg PO DAILY #30 tab Nicotine [Nicoderm*] 21 mg TD BEDTIME #30 patch.td24 predniSONE [Prednisone*] 20 mg PO SEECOM #15 tab Patient Discharge Instructions: 1. Patient will need to follow up with PCP in 1 week to follow up this hospitalization. 2. Patient presented with shortness of breath and hypoxia secondary to acute on chronic COPD exacerbation. Patient is oxygen dependent. Patient with poor compliance on her use of oxygen at times. Chest x-ray showed possible pulmonary edema as well. Patient treated for COPD. Pro calcitonin negative. Repeat x-ray shows improvement. No signs of infection noted. Case discussed at length with pulmonology. Her overall care concerning her COPD was addressed in detail with the patient and family. Family is concerned with her compliance. At discharge patient will continue with Spiriva 1 puff daily and albuterol 1 unit dose 3 times a day as needed for shortness of breath. New medication-Brovana 1 unit dose twice daily will be added. The patient will also continue with prednisone 20 mg 1 pill twice daily for 5 days then 1 pill once daily for 5 days. Patient is to continue with oxygen to maintain sats above 88%. Compliance with her use of oxygen will need to be enforced and monitored. Recommendations for the patient follow up with pulmonology in 1-2 weeks to monitor progress and continue address. 3. Patient also had pulmonary edema likely related to acute on chronic diastolic CHF. This improved with diuretic therapy. Echocardiogram ordered. At discharge she will continue with new medication-Lasix 20 mg daily. The patient will need to continue with a 1500 cc per day fluid restriction and low-salt diet. She is to monitor her weight daily. If her weight increases by more than 5 lb she is to contact her PCP for further recommendation. Lasix may be able to be weaned off if significantly improved. Recommendation to recheck chest x-ray in 2-4 weeks to monitor resolution. 4. Patient with diabetes type 2, insulin-dependent. Patient will continue with her insulin regimen of insulin 70/30. Recommendation is to maintain blood sugars less 140 fasting and less than 2 after meals. Further adjustment can be done by her PCP. 5. Patient has hypertension. Patient will continue with lisinopril 10 mg daily. Recommendation is to maintain blood pressures less 150/80. Further adjustment can be done by her PCP. 6. Patient has hyperlipidemia. Patient may continue with pravastatin 40 mg daily. 7. Patient with PVD. Patient will continue with aspirin 81 mg daily and Plavix 75 mg daily. 8. Patient with depression and anxiety. Patient will continue with sertraline 100 mg daily and Depakote ER 250 mg 1 pill twice daily. Patient may continue with alprazolam 1 mg 1 pill at night as needed for insomnia. Recommendation is for the patient to establish care with psychiatry to further monitor and address her medications. Further adjustment in medication can be done by Psychiatry. Recommendation is to limit use of alprazolam and eventually wean off alprazolam. This was discussed in detail with the patient and family. This can be further addressed by psychiatry or her PCP. Recommendation that only 1 physician is to provide and monitor control of alprazolam as an outpatient. 9. Patient with diabetic neuropathy and chronic pain. Patient is seen by pain management. Recommendation is to continue with Lyrica 300 mg 1 pill twice daily. Patient may continue with tramadol 50 mg 1 pill twice daily as needed for pain. Recommendation is to limit use of the tramadol and eventually wean off tramadol. This was discussed in detail with the patient and family. Recommendation that only 1 physician is to provide and monitor control of tramadol as an outpatient. Patient also takes Zanaflex 4 mg 1 pill twice daily as needed for muscle spasm. Recommendation to limit use of Zanaflex and eventually wean off eventually. This was discussed in detail with the patient and family. Recommendation that only 1 person is to provide and monitor control of Zanaflex as an outpatient. This can be done by her chronic pain management physician. Patient previously on Flexeril. Flexeril has been discontinued at discharge. Patient also takes Tylenol for pain. Patient may continue with Tylenol 500 mg 1 pill 4 times a day as needed for pain. 10. Patient has chronic diarrhea. Patient may continue with Imodium 2 mg 1 pill 3 times a day as needed for diarrhea. Stool cultures obtained. This can be followed up as an outpatient. Recommendation is for the patient follow up with GI as an outpatient to further monitor and address. 11. Patient has chronic foot ulcers bilateral. She is seen by wound care and Podiatry. Recommendation to continue with wound care and follow up with podiatry as directed. 12. Patient with tobacco abuse. Tobacco cessation education addressed in detail. Nicotine patch will be provided. This can be further monitored and addressed by her PCP. 13. Patient with seasonal allergies. Patient may continue with Kamila daily. Benadryl is to be discontinued. 14. Patient also takes fish oil and zinc. Patient may continue with his medication. 15. Patient may have underlying obstructive sleep apnea. Recommendation is for the patient to follow up with pulmonology to further evaluate. Diet: ADA Activity: Fall precautions Time spent managing pt's care (in minutes): 55
--- NOTE | 2018-06-19 12:18 | ECHO ---
HEIGHT: 5 ft 2 in WEIGHT: 155 lb 0 oz DATE OF STUDY: 06/19/[address]: Luis Angel Romero MD 2-DIMENSIONAL: YES M.MODE: YES DOPPLER: YES COLOR FLOW: YES TDS: YES PORTABLE: NO DEFINITY: NO BUBBLE STUDY: NO DIAGNOSIS: CONGESTIVE HEART FAILURE/ CHRONIC OBSTRUCTIVE DISEASE CARDIAC HISTORY: CATHERIZATION: NO SURGERY: NO PROSTHETIC VALVE: NO PACEMAKER: NO MEASUREMENTS (cm) DIASTOLIC (NORMALS) SYSTOLIC (NORMALS) IVSd 1.0 (0.6-1.2) LA Diam 3.8 (1.9-4.0) LVEF 70% LVIDd 4.1 (3.5-5.7) LVIDs 2.5 (2.0-3.5) %FS 39% LVPWd 1.0 (0.6-1.2) Ao Diam 2.5 (2.0-3.7) 2 DIMENSIONAL ASSESSMENT: RIGHT ATRIUM: NORMAL LEFT ATRIUM: NORMAL RIGHT VENTRICLE: NORMAL LEFT VENTRICLE: NORMAL TRICUSPID VALVE: NORMAL MITRAL VALVE: MITRAL ANNULAR CALCIFICATION PULMONIC VALVE: NORMAL AORTIC VALVE: NORMAL PERICARDIAL EFFUSION: NONE AORTIC ROOT: NORMAL LEFT VENTRICULAR WALL MOTION: NORMAL. DOPPLER/COLOR FLOW: IMPAIRED LEFT VENTRICULAR RELAXATION. COMMENTS: NORMAL LEFT VENTRICULAR EJECTION FRACTION. MITRAL ANNULAR CALCIFICATION. IMPAIRED LEFT VENTRICULAR RELAXATION. TECHNOLOGIST: CHELI RODRIGUEZ
[2018-06-19 13:04] VITALS: O2SAT 90
[2018-06-19 14:13] VITALS: BP 143/68; TEMP 97.5
[2018-06-19] MEDS ORDERED: MONTELUKAST 10 MG TAB PO SCH (21:00)
[2018-06-19] MEDS ORDERED: PREGABALIN 150 MG CAP PO SCH (21:00)
[2018-06-19] MEDS ORDERED: ALPRAZOLAM 1 MG TABLET PO SCH (21:00)
[2018-06-19] MEDS ORDERED: DIVALPROEX ER 250 MG TAB PO SCH (21:00)
[2018-06-19] MEDS ORDERED: NICOTINE 21 MG/PAT TD SCH (21:00)
[2018-06-20] MEDS ORDERED: HOME MED 1 EA UNK (Pravastatin Sodium [Pravastatin Sodium] 40 MG) PO SCH (09:00)
[2018-06-20] MEDS ORDERED: SERTRALINE HCL 100 MG TAB PO SCH (09:00)
[2018-06-20] MEDS ORDERED: LISINOPRIL 10 MG TAB PO SCH (09:00)
[2018-06-20] MEDS ORDERED: CLOPIDOGREL 75 MG TABLET PO SCH (09:00)
[2018-06-20] MEDS ORDERED: ZINC SULFATE 220 MG CAP PO SCH (09:00)
[2018-06-20] MEDS ORDERED: TIOTROPIUM 5 SPRAYS/INHALER IH SCH (09:00)
[2018-06-20] MEDS ORDERED: DOCOSAHEXANOIC AC/EPA 1000 MG PO SCH (09:00)
== END 2018-06-19 13:54 | disposition home health service (06) ==
LOC: ER 12:55 → INTOOBSV 15:06 → ERHOLD 15:06 → 2ND 17:29
PROVIDERS: ADMIT Family Medicine; ATTEND Family Medicine
DX: J44.1 Chronic obstructive pulmonary disease with (acute) exacerbation (principal); I10 Essential (primary) hypertension; F41.8 Other specified anxiety disorders; R19.7 Diarrhea, unspecified; I73.9 Peripheral vascular disease, unspecified; E11.40 Type 2 diabetes mellitus with diabetic neuropathy, unspecified; E11.621 Type 2 diabetes mellitus with foot ulcer; L97.519 Non-pressure chronic ulcer of other part of right foot with unspecified severity; E11.65 Type 2 diabetes mellitus with hyperglycemia; L97.529 Non-pressure chronic ulcer of other part of left foot with unspecified severity; F17.210 Nicotine dependence, cigarettes, uncomplicated; Z99.81 Dependence on supplemental oxygen; Z96.652 Presence of left artificial knee joint; R09.02 Hypoxemia; Z91.19 Patient's noncompliance with other medical treatment and regimen; J30.2 Other seasonal allergic rhinitis
CPT/HCPCS: 36415; 71045; 71046; 80048; 80061; 80076; 80164; 81003; 82550; 82553; 82805; 82962; 83690; 83735; 83880; 84145; 84439; 84443; 84484; 85025; 85610; 87040; 87177; 87209; 87493; 93005; 93306; 94640; 96361; 96365; 96375; 99285; G0378; J1650; J1940; J2930; J7030; J7512; J7605

== ENCOUNTER 2018-06-20 15:19 | Inpatient (IN) | payer OTHER ==
[2018-06-20] MEDS ORDERED: NA CHLORIDE 0.9% 500 ML ONE (15:59)
[2018-06-20] MEDS ORDERED: IPRATROPIUM BROM 0.5MG/2.5ML ONE (15:59)
[2018-06-20] MEDS ORDERED: LEVALBUTEROL 1.25 MG/3 ML NEB ONE (15:59)
[2018-06-20] MEDS ORDERED: METHYLPREDNISOLONE 125 MG INJ ONE (15:59)
--- NOTE | 2018-06-20 16:44 | EKG ---
Test Date: 2018-06-20 Test Time: 15:33:42 Ambulance Assistant: ROGELIO MEASUREMENT RESULTS: Intervals: Rate: 84 [place]: 122 QRSD: 136 QT: 416 QTc: 491 [place]: P: 57 [place]: 122 QRS: 62 T: 37 INTERPRETIVE STATEMENTS: Normal sinus rhythm Possible Left atrial enlargement Right bundle branch block Abnormal ECG Compared to ECG 06/18/2018 13:42:53 No significant changes Electronically Signed On 06-20-18 16:44:14 CDT by Víctor Kurtz
--- NOTE | 2018-06-20 16:48 | RAD REPORT ---
EXAM DESCRIPTION: RAD - Chest Single View - 06/20/2018 4:08 pm CLINICAL HISTORY: Shortness of breath, hypotension COMPARISON: June 19 TECHNIQUE: AP portable chest image was obtained 1550 hours . FINDINGS: Lung volumes are similar to comparison. Patient has baseline interstitial lung disease. Pl eural and parenchymal opacification at the left base have not changed from June 19. Atelectasis c hanges are seen in the right lung field. Heart size is normal. Vasculature within normal limits. No p neumothorax is seen. No large pleural effusion identifiable. No gross bony abnormality seen. No acute aortic findings suspected. IMPRESSION: Chronic interstitial lung disease is present. Focal pleural and parenchymal opacification left base stable from prior study.
[2018-06-20 17:24] LABS: Absolute Lymphocytes (CBC) 2.5 K/uL (0.7-4.9); Absolute Monocytes 0.9 K/uL (0.1-1.3); Absolute Neutrophil 8.5 K/uL (1.8-8.0); Basophils % 0.3 % (0-1.3); Eosinophils % 0.3 % (0-4.4); Hematocrit 36.9 % (36.0-45.0); Lymphocytes % 20.5 % (15.3-44.8); MCH 26.1 pg (27.0-35.0); MCV 80.1 fL (80-100); MPV 9.5 fL (7.6-11.3); Monocytes % 7.6 % (3.3-12.3); RBC Red Blood Cell Count 4.61 M/uL (3.86-4.86)
[2018-06-20 17:38] LABS: BUN Blood Urea Nitrogen 53 mg/dL (7-18); Bicarbonate 26 mmol/L (21-32); Glucose Level 218 mg/dL (74-106); Magnesium 2.1 mg/dL (1.8-2.4); NT PRO-BNP 740 pg/mL (<125); Potassium 3.8 mmol/L (3.5-5.1); Sodium Level 132 mmol/L (136-145); Troponin (Emerg Dept Use Only) < 0.02 ng/mL (0.0-0.045)
--- NOTE | 2018-06-20 17:44 | ER ---
Nurse's Notes [facility] Name: Nakia Turcios Age: 62 yrs Sex: Female : 1955 Arrival Date: 06/20/2018 Time: 15:21 Bed 3 Private MD: Diagnosis: Syncope and collapse;Hypotension;Hypoxemia;Dehydration;Acute kidney failure Presentation: 06/20 15:28 Presenting complaint: EMS states: SOB AND HYPOTENSION. Transition of care: patient was bp not received from another setting of care. Onset of symptoms is unknown. Risk Assessment: Do you want to hurt yourself or someone else? Patient reports no desire to harm self or others. Initial Sepsis Screen: Does the patient meet any 2 criteria? No. Patient's initial sepsis screen is negative. Does the patient have a suspected source of infection? Yes: Productive cough/pneumonia. Care prior to arrival: IV initiated. 20 GA, in the right forearm, Glucose check: 250 Med neb given. Oxygen administered. via a nebulizer mask. 15:28 Method Of Arrival: EMS: [facility] bp 15:28 Acuity: JESUSITA 2 bp Triage Assessment: 15:36 General: Appears in no apparent distress. comfortable, obese, unkempt, Behavior is bp calm, cooperative, appropriate for age. Pain: Complains of pain in GENERALIZED. EENT: No deficits noted. Neuro: Level of Consciousness is awake, alert, obeys commands, Oriented to person, place, time, situation, Appropriate for age. Cardiovascular: Rhythm is sinus rhythm. Respiratory: Reports shortness of breath cough that is Airway is patent Respiratory effort is even, labored, Respiratory pattern is regular, symmetrical, Onset: The symptoms/episode began/occurred at an unknown time. the patient has moderate shortness of breath. GI: Reports incontinence. : No signs and/or symptoms were reported regarding the genitourinary system. Derm: Wound noted right foot and left foot. Musculoskeletal: Circulation, motion, and sensation intact. Range of motion: intact in all extremities. Historical: - Allergies: 15:34 Codeine (Anaphylaxis); bp 15:34 FLU VACCINE; bp - Home Meds: 15:34 Albuterol Inhl 4 times per day [Active]; alprazolam 1 mg Oral tab 3 times per day for bp Anxiety [Active]; aspirin 81 mg Oral chew 1 tab once daily [Active]; atorvastatin 20 mg Oral tab 1 tab nightly [Active]; bupropion HCl 150 mg Oral TbER 1 tab 2 times per day [Active]; Chantix 1 mg Oral tab 2 times per day [Active]; clopidogrel 75 mg Oral tab [Active]; Daliresp 500 mcg Oral tab 1 tab once daily [Active]; Depakene 250 mg Oral cap twice a day [Active]; diltiazem HCl 120 mg Oral CDER 1 cap once daily [Active]; divalproex 250 mg Oral Tb24 2 tabs once daily [Active]; hydromorphone 4 mg Oral tab 1 tab every 4 hours [Active]; Insulin: Novolin 70/30 130 units in am and 105 at night Sub-Q [Active]; lisinopril 10 mg Oral tab [Active]; Lyrica 300mg Oral 2 times per day [Active]; mirtazapine 30 mg Oral tab [Active]; montelukast 10 mg Oral tab once daily [Active]; pravastatin 40 mg Oral tab 1 tab once daily [Active]; prednisone 10 mg Oral tab once daily [Active]; Proventil Inhl four times a day [Active]; sertraline 100 mg Oral tab 1 tab once daily [Active]; - PMHx: 15:34 COPD; Diabetes - IDDM; Hypertension; neuropathy; bp - Immunization history:: Adult Immunizations up to date. - Social history:: Smoking status: Patient uses tobacco products, unknown amount. - Ebola Screening: : Patient negative for fever greater than or equal to 101.5 degrees Fahrenheit, and additional compatible Ebola Virus Disease symptoms Patient denies exposure to infectious person Patient denies travel to an Ebola-affected area in the 21 days before illness onset No symptoms or risks identified at this time. - Family history:: not pertinent. - Hospitalizations: : No recent hospitalization is reported. Screenin:42 Abuse screen: Denies threats or abuse. Denies injuries from another. Nutritional bp screening: No deficits noted. Tuberculosis screening: No symptoms or risk factors identified. Fall Risk Fall in past 12 months (25 points). Secondary diagnosis (15 points) impaired mobility, IV access (20 points). Ambulatory Aid- Crutches/Cane/Walker (15 pts). Gait- Weak (10 pts.). Mental Status- Oriented to own ability (0 pts). Total Saucedo Fall Scale indicates High Risk Score (45 or more points). Fall prevention measures have been instituted. Side Rails Up X 2 Placed Close to Nursing Station Frequent Obs/Assessments Occuring Family Present and informed to notify staff if the need to leave the bedside As available patient and family educated on Fall Prevention Program and Strategies. Assessment: 15:38 General: SEE TRIAGE NOTE. 62YO WF P/W SOB AND HYPOTENSION, D/C FROM HOSPITAL Y/D. bp Cardiovascular: Rhythm is sinus rhythm. Respiratory: Airway is patent Respiratory effort is even, labored, Respiratory pattern is regular, symmetrical, Breath sounds with wheezes bilaterally. 16:09 Reassessment: pt was cleaned, on arrival pt was covered with feces and urine; able to hj assist with changing;. 16:32 Reassessment: Patient and/or family updated on plan of care and expected duration. Pain hj level reassessed. Patient is alert, oriented x 3, equal unlabored respirations, skin warm/dry/pink. breathing tx on going; V/S updated;. 17:04 Reassessment: Patient and/or family updated on plan of care and expected duration. Pain hj level reassessed. Patient is alert, oriented x 3, equal unlabored respirations, skin warm/dry/pink. family in room;. 17:14 Reassessment: called lab to follow up blood results for BMP, CBC, tech to check for it hj and update nurse;. 17:59 Reassessment: wheeled to CT:. hj 18:30 Reassessment: back from CT and US;. hj 18:52 Reassessment: awaiting room placment;. hj 20:55 Reassessment: Patient appears in no apparent distress at this time. Patient and/or aa1 family updated on plan of care and expected duration. Pain level reassessed. Patient is alert, oriented x 3, equal unlabored respirations, skin warm/dry/pink. Report given to ELSI Wilson on 2nd floor. Vital Signs: 15:30 Pulse Ox 88% on R/A; aa5 15:34 BP 78 / 53; Pulse 85; Resp 19; Pulse Ox 91% on 3 lpm NC; Weight 70.31 kg; bp 16:10 BP 100 / 77; Pulse 82; Resp 15; Temp 98.1; Pulse Ox 98% ; bp 16:25 BP 104 / 73; Pulse 85; Resp 18; Pulse Ox 99% on Nebulizer Mask; hj 16:33 BP 109 / 59; Pulse 88; Resp 18; Pulse Ox 99% on Nebulizer Mask; hj 17:02 BP 116 / 50; Pulse 89; Resp 18; Pulse Ox 92% on 3 lpm NC; hj 18:00 BP 115 / 52; Pulse 88; Resp 18; Pulse Ox 94% on 3 lpm NC; hj 18:30 BP 132 / 77; Pulse 91; Resp 15; Pulse Ox 92% ; bp 18:52 BP 131 / 65; Pulse 89; Resp 18; Pulse Ox 93% on 3 lpm NC; hj 19:23 BP 116 / 58; Pulse 86; Resp 16; Pulse Ox 94% on R/A; Pain 0/10; tl1 20:52 BP 143 / 76; Pulse 92; Resp 20; Pulse Ox 95% ; aa1 ED Course: 15:20 Initial lab(s) drawn, by me, sent to lab. First set of blood cultures drawn. hj 15:21 Patient arrived in ED. hj 15:22 Jay Baig RN is Primary Nurse. hj 15:25 Sascha Singletary MD is Attending Physician. rn 15:30 Triage completed. bp 15:34 Arm band placed on. bp 15:38 EKG done, by senior environmental technician. reviewed by Sascha Singletary MD. sm3 15:42 Patient has correct armband on for positive identification. Placed in gown. Bed in low bp position. Call light in reach. Side rails up X2. 15:43 Maintain EMS IV. Dressing intact. Good blood return noted. Site clean \T\ dry. Gauge \T\ bp site: 20 GAUGE R FA. 16:08 XRAY CXR (1 view) In Process Unspecified. EDMS 16:10 Inserted saline lock: 20 gauge in left forearm, using aseptic technique. Blood hj collected. 17:34 Zhou cath inserted, using sterile technique, 18 Fr., by me, balloon inflated, to bp gravity drainage, urine specimen collected. returned cloudy urine. Patient tolerated well. 17:43 Jose Eduardo Fowler DO is Hospitalizing Provider. rn 17:[address] jg6 18:04 CT completed. Patient tolerated procedure well. Patient moved back from CT. jg6 18:04 Patient taken to ultrasound. jg6 18:19 Ultrasound completed. Patient tolerated well. Patient moved back from ultrasound. cy 20:55 No provider procedures requiring assistance completed. Patient admitted, IV remains in aa1 place. Administered Medications: 15:45 Drug: NS 0.9% 500 ml Route: IV; Rate: bolus; Site: right forearm; bp 18:01 Follow up: IV Status: Completed infusion; IV Intake: 500ml hj 15:45 Drug: SOLU-Medrol 125 mg Route: IVP; Site: right forearm; bp 16:51 Follow up: Response: No adverse reaction hj 15:45 Drug: Xopenex (3) 1.25 mg Route: Inhalation; bp 15:45 Drug: AtroVENT Aerosol 0.5 mg Route: Inhalation; bp Intake: 18:01 IV: 500ml; Total: 500ml. hj Outcome: 17:44 Decision to Hospitalize by Provider. rn 21:11 Admitted to Tele accompanied by tech, via wheelchair, room 229, with chart, Report aa1 called to [facility] 21:11 Condition: stable 21:11 Instructed on the need for admit, Demonstrated understanding of instructions. 21:12 Patient left the ED. aa1 Signatures: Dispatcher [employer] EDMS Dori Potter RN RN aa1 Sascha Singletary MD MD rn Calderon, Audri, RN RN aa5 Melani Mendosa RN RN tl1 Jay Baig, Mike Cummings RN, RN RN bp Yong, Chheannith cy Montes, Shakira 3 Quin Tapia j6
--- NOTE | 2018-06-20 17:44 | EDPHYS ---
Physician Documentation [facility] Name: Nakia Turcios Age: 62 yrs Sex: Female : 1955 Arrival Date: 06/20/2018 Time: 15:21 Bed 3 Private MD: ED Physician Sascha Singletary HPI: 06/20 17:22 This 62 yrs old Female presents to ER via EMS with complaints of Breathing rn Difficulty. 17:22 The patient has shortness of breath at rest. Onset: The symptoms/episode began/occurred rn at an unknown time. Duration: The symptoms are continuous. The patient's shortness of breath is aggravated by exertion, light activity, talking. Severity of symptoms: At their worst the symptoms were severe in the emergency department the symptoms have improved. The patient has experienced similar episodes in the past. Family reports increased sob, just discharged from this hospital yesterday after overnight stay, daughters reports unable to move her from bed to chairs, too weak, passed out, defecated on herself, when EMS arrived, BP was 50s systolic, pale, and unresponsive, perked up by time they arrived here. . Historical: - Allergies: 15:34 Codeine (Anaphylaxis); bp 15:34 FLU VACCINE; bp - Home Meds: 15:34 Albuterol Inhl 4 times per day [Active]; alprazolam 1 mg Oral tab 3 times per day for bp Anxiety [Active]; aspirin 81 mg Oral chew 1 tab once daily [Active]; atorvastatin 20 mg Oral tab 1 tab nightly [Active]; bupropion HCl 150 mg Oral TbER 1 tab 2 times per day [Active]; Chantix 1 mg Oral tab 2 times per day [Active]; clopidogrel 75 mg Oral tab [Active]; Daliresp 500 mcg Oral tab 1 tab once daily [Active]; Depakene 250 mg Oral cap twice a day [Active]; diltiazem HCl 120 mg Oral CDER 1 cap once daily [Active]; divalproex 250 mg Oral Tb24 2 tabs once daily [Active]; hydromorphone 4 mg Oral tab 1 tab every 4 hours [Active]; Insulin: Novolin 70/30 130 units in am and 105 at night Sub-Q [Active]; lisinopril 10 mg Oral tab [Active]; Lyrica 300mg Oral 2 times per day [Active]; mirtazapine 30 mg Oral tab [Active]; montelukast 10 mg Oral tab once daily [Active]; pravastatin 40 mg Oral tab 1 tab once daily [Active]; prednisone 10 mg Oral tab once daily [Active]; Proventil Inhl four times a day [Active]; sertraline 100 mg Oral tab 1 tab once daily [Active]; - PMHx: 15:34 COPD; Diabetes - IDDM; Hypertension; neuropathy; bp - Immunization history:: Adult Immunizations up to date. - Social history:: Smoking status: Patient uses tobacco products, unknown amount. - Ebola Screening: : Patient negative for fever greater than or equal to 101.5 degrees Fahrenheit, and additional compatible Ebola Virus Disease symptoms Patient denies exposure to infectious person Patient denies travel to an Ebola-affected area in the 21 days before illness onset No symptoms or risks identified at this time. - Family history:: not pertinent. - Hospitalizations: : No recent hospitalization is reported. ROS: 17:22 Constitutional: Negative for fever, chills, and weight loss, Eyes: Negative for injury, rn pain, redness, and discharge, Neck: Negative for injury, pain, and swelling, Cardiovascular: Negative for chest pain, palpitations, and edema, Respiratory: Negative for pleuritic chest pain Abdomen/GI: Negative for abdominal pain, nausea, vomiting, diarrhea, and constipation, MS/Extremity: Negative for injury and deformity, Skin: Negative for injury, rash, and discoloration, Neuro: Negative for headache, numbness, tingling, and seizure. Exam: 17:22 Constitutional: Patient with somnolence but speaking full sentences, appears pale, rn covered lower ext with feces. Head/Face: Normocephalic, atraumatic. Eyes: Pupils equal round and reactive to light, extra-ocular motions intact. Lids and lashes normal. Conjunctiva and sclera are non-icteric and not injected. Cornea within normal limits. Periorbital areas with no swelling, redness, or edema. ENT: dry MM Cardiovascular: tachycardic, regular, no murmur Respiratory: + tachypnea with shallow breaths and diffuse crackles and wheezing Abdomen/GI: soft, non-tender MS/ Extremity: Pulses equal, no cyanosis. Neurovascular intact. Full, normal range of motion. Equal circumference. Neuro: Somnolent, answers questions, follows commands, moves all 4 extremities Vital Signs: 15:30 Pulse Ox 88% on R/A; aa5 15:34 BP 78 / 53; Pulse 85; Resp 19; Pulse Ox 91% on 3 lpm NC; Weight 70.31 kg; bp 16:10 BP 100 / 77; Pulse 82; Resp 15; Temp 98.1; Pulse Ox 98% ; bp 16:25 BP 104 / 73; Pulse 85; Resp 18; Pulse Ox 99% on Nebulizer Mask; hj 16:33 BP 109 / 59; Pulse 88; Resp 18; Pulse Ox 99% on Nebulizer Mask; hj 17:02 BP 116 / 50; Pulse 89; Resp 18; Pulse Ox 92% on 3 lpm NC; hj 18:00 BP 115 / 52; Pulse 88; Resp 18; Pulse Ox 94% on 3 lpm NC; hj 18:30 BP 132 / 77; Pulse 91; Resp 15; Pulse Ox 92% ; bp 18:52 BP 131 / 65; Pulse 89; Resp 18; Pulse Ox 93% on 3 lpm NC; hj 19:23 BP 116 / 58; Pulse 86; Resp 16; Pulse Ox 94% on R/A; Pain 0/10; tl1 20:52 BP 143 / 76; Pulse 92; Resp 20; Pulse Ox 95% ; aa1 MDM: 15:25 Patient medically screened. rn 17:41 Differential diagnosis: Anemia Anxiety Reaction CHF exacerbation, Chronic Obstructive rn Pulmonary Disease Myocardial Infarction pneumonia, pulmonary edema, Sepsis. Data reviewed: vital signs, nurses notes, lab test result(s), EKG, radiologic studies, plain films, and as a result, I will admit patient. Counseling: I had a detailed discussion with the patient and/or guardian regarding: the historical points, exam findings, and any diagnostic results supporting the discharge/admit diagnosis, lab results, radiology results, the need for further work-up and treatment in the hospital. Response to treatment: the patient's symptoms have markedly improved after treatment, and as a result, I will admit patient. ED course: Will admit for hypotension, hypoxia, was 82% on her home O2 of 3L, normally low 90s on 3L, BP was 50s systolic, all improved after breathing treatments and fluids, will admit to Dr. Fowler, elevated lactate but more likely related to dehydration and low volume status and not sepsis, as was cleared for dc less than 24 hours ago and no acute changes. . 06/20 15:26 Order name: Blood Culture Adult (2) rn 06/20 15:26 Order name: BMP; Complete Time: 17:45 rn 06/20 15:26 Order name: CBC with Diff; Complete Time: 17:39 rn 06/20 15:26 Order name: Magnesium; Complete Time: 17:45 rn 06/20 15:26 Order name: NT PRO-BNP; Complete Time: 17:45 rn 06/20 15:26 Order name: Troponin (emerg Dept Use Only); Complete Time: 17:45 rn 06/20 15:26 Order name: Lactate; Complete Time: 16:42 rn 06/20 15:26 Order name: Procalcitonin; Complete Time: 17:12 rn 06/20 17:53 Order name: Basic Metabolic Panel EDOK 06/20 17:53 Order name: Basic Metabolic Panel EDOK 06/20 17:53 Order name: Basic Metabolic Panel EDOK 06/20 17:53 Order name: Urine Dipstick--Ancillary (enter results) 06/20 19:04 Order name: Lactate Sepsis 2 HR Follow-up EDOK 06/20 19:41 Order name: Urine Dipstick-Ancillary EDMS 06/20 15:26 Order name: XRAY CXR (1 view); Complete Time: 16:52 rn 06/20 15:26 Order name: EKG; Complete Time: 15:26 rn 06/20 15:26 Order name: Cardiac monitoring; Complete Time: 15:43 rn 06/20 15:26 Order name: EKG - Nurse/Tech; Complete Time: 15:43 rn 06/20 15:26 Order name: IV Saline Lock; Complete Time: 15:44 rn 06/20 15:26 Order name: Labs collected and sent; Complete Time: 15:44 rn 06/20 15:26 Order name: O2 Per Protocol; Complete Time: 15:44 rn 06/20 15:26 Order name: O2 Sat Monitoring; Complete Time: 15:44 rn 06/20 18:19 Order name: CT; Complete Time: 18:27 EDMS 06/20 18:38 Order name: US; Complete Time: 19:00 EDMS Administered Medications: 15:45 Drug: NS 0.9% 500 ml Route: IV; Rate: bolus; Site: right forearm; bp 18:01 Follow up: IV Status: Completed infusion; IV Intake: 500ml hj 15:45 Drug: SOLU-Medrol 125 mg Route: IVP; Site: right forearm; bp 16:51 Follow up: Response: No adverse reaction hj 15:45 Drug: Xopenex (3) 1.25 mg Route: Inhalation; bp 15:45 Drug: AtroVENT Aerosol 0.5 mg Route: Inhalation; bp Disposition: 17:41 Critical Care:. rn Disposition: 06/20/18 17:44 Hospitalization ordered by Jose Eduardo Fowler for Inpatient Admission. Preliminary diagnosis are Syncope and collapse, Hypotension, Hypoxemia, Dehydration, Acute kidney failure. - Bed requested for Telemetry/MedSurg (Inpatient). - Status is Inpatient Admission. aa1 - Condition is Stable. - Problem is new. - Symptoms have improved. UTI on Admission? No Critical care time excluding procedures: 17:41 Critical care time: Bedside Care: 25 minutes, Consultation: 5 minutes, Family rn Intervention: 5 minutes. Total time: 35 minutes Signatures: Dispatcher [employer] EDDori Cheek, RN RN aa1 Caren Gomez ms, Roman, MD MD rn Peltier, Brian, RN RN bp Joaquin, Henry RN Corrections: (The following items were deleted from the chart) 17:47 17:44 Hospitalization Ordered by Jose Eduardo Fowler DO for Inpatient Admission. Preliminary rn diagnosis is Syncope and collapse; Hypotension; Hypoxemia; Dehydration. Bed requested for Telemetry/MedSurg (Inpatient). Status is Inpatient Admission. Condition is Stable. Problem is new. Symptoms have improved. UTI on Admission? No. rn 20:21 17:47 06/20/2018 17:44 Hospitalization Ordered by Jose Eduardo Fowler DO for Inpatient ms Admission. Preliminary diagnosis is Syncope and collapse; Hypotension; Hypoxemia; Dehydration; Acute kidney failure. Bed requested for Telemetry/MedSurg (Inpatient). Status is Inpatient Admission. Condition is Stable. Problem is new. Symptoms have improved. UTI on Admission? No. rn 21:12 20:21 06/20/2018 17:44 Hospitalization Ordered by Jose Eduardo Fowler DO for Inpatient aa1 Admission. Preliminary diagnosis is Syncope and collapse; Hypotension; Hypoxemia; Dehydration; Acute kidney failure. Bed requested for Telemetry/MedSurg (Inpatient). Status is Inpatient Admission. Condition is Stable. Problem is new. Symptoms have improved. UTI on Admission? No. ms
[2018-06-20] MEDS ORDERED: ALBUTEROL 2.5 MG/3 ML NEB SOL NEB PRN (17:46)
[2018-06-20] MEDS ORDERED: ONDANSETRON 4 MG/2 ML VIAL IV PRN (17:46)
[2018-06-20] MEDS ORDERED: D50W 25 GM/50 ML SYRINGE IV PRN (17:54)
[2018-06-20] MEDS ORDERED: LOPERAMIDE HCL 2 MG CAPSULE PO PRN (17:54)
[2018-06-20] MEDS ORDERED: GLUCAGON 1 MG/VIAL IM PRN (17:54)
--- NOTE | 2018-06-20 18:05 | P.HP ---
Certification for Inpatient Patient admitted to: Inpatient With expected LOS: >2 Midnights Patient will require the following post-hospital care: [facility] Practitioner: I am a practitioner with admitting privileges, knowledge of patient current condition, hospital course, and medical plan of care. Services: Services provided to patient in accordance with Admission requirements found in Title 42 Section 412.3 of the Code of Federal Regulations Patient History Date of Service: 06/20/18 Primary Care Provider: Dr. Whalen; Pulmonary-Dr. Chau Reason for admission: Syncope History of Present Illness: 62-year-old female presented to the hospital by EMS for syncope. Patient was discharged yesterday due to shortness of breath secondary to acute on chronic COPD and acute on chronic diastolic CHF. The patient reports that she was doing well but will go up this morning very tired. She felt weak in her knees. Upon transfer the patient felt weak, dizzy and had passed out. When EMS arrived blood pressures were around 70 systolic. Room-air saturations were also low in the 80s. Patient was given IV fluids in the emergency room. Blood pressure improved with IV fluids. ER physician reports the patient had feces all over her. The patient improved in emergency room. On lab white count 12, hemoglobin 12. They can 165. Sodium 132, potassium 3.8. BUN of 53, creatinine 2.6 with a GFR of 19. Glucose 218. Troponin less than 0.02. BMP 740. Pro calcitonin unremarkable. Lactic acid slightly elevated. Chest x-ray showed no opacities. Echo done yesterday showed an EF of 70% with impaired relaxation of the left ventricle. Patient was admitted for treatment. When I saw the patient ER, she appeared dry. Patient had received IV Lasix on her last hospitalization. She was sent home with Lasix 20 mg daily. She was also taking blood pressure medication-lisinopril 10 mg daily. Patient reports that she is compliant with her medications since her last hospitalization. Patient is not over medicating herself with her pain medication. Allergies codeine [Codeine] Allergy (Intermediate, Verified 02/03/17 19:52) Itching/Hives/Rash flu vaccine Allergy (Uncoded 02/03/17 19:52) Anaphylaxis Home medications list reviewed: Yes Home Medications: Aspirin 81 mg PO DAILY 01/30/12 Divalproex ER [Depakote *ER] 250 mg PO BID 01/19/15 Clopidogrel Bisulfate [Plavix] 1 tab PO DAILY 09/21/16 Lisinopril [Zestril] 10 mg PO DAILY 09/21/16 Pregabalin [Lyrica] 300 cap PO BID 09/21/16 Sertraline [Zoloft*] 1 tab PO DAILY 09/21/16 Insulin 70/30 NPH/Reg Human [Novolin 70/30*] 0 unit SQ SEECOM 02/03/17 Montelukast [Singulair*] 1 tab PO BEDTIME 10/21/17 Pravastatin Sodium 40 mg PO DAILY 10/21/17 Tiotropium [place] [Spiriva] 1 puff PO DAILY 10/21/17 Albuterol Sulfate [Proventil Hfa] 2 inhaler IH QID PRN 11/22/17 ALPRAZolam [Xanax*] 1 mg PO BEDTIME tab 06/19/18 Albuterol Neb [Proventil 0.083% Neb Soln] 2.5 mg NEB TID PRN #90 amp 06/19/18 Arformoterol Tartrate [Brovana] 15 mcg NEB BIDRESP #60 vial.neb 06/19/18 Furosemide [Lasix] 20 mg PO DAILY #30 tab 06/19/18 Loperamide [Imodium*] 2 mg PO TID PRN 06/19/18 Nicotine [Nicoderm*] 21 mg TD BEDTIME #30 patch.td24 06/19/18 [place]-3 Fatty Acids/Fish Oil [Eql [place]-3 Fish Oil 1,000 mg] 1 each PO DAILY 12/02 Tizanidine [Zanaflex*] 4 mg PO BID PRN tab 06/19/18 Zinc 50 mg PO DAILY 06/19/18 predniSONE [Prednisone*] 20 mg PO SEECOM #15 tab 06/19/18 traMADol HCL [Ultram*] 50 mg PO Q12HP PRN tab 06/19/18 - Past Medical/Surgical History Diabetic: Yes -: Neuropathy -: Diabetes mellitus type 2 insulin-dependent -: A-Fib -: COPD, severe, oxygen-dependent -: Depression with anxiety -: Hyperlipidemia -: Hypertension -: Chronic migraines -: Chronic pain -: Chronic ulcers to the lower extremity -: Chronic renal disease -: CHF, diastolic dysfunction -: APPENDECTOMY, LEFT KNEE surgery, FOOT SX, EYE surgery -: COMPLETE HYSTERECTOMY , PLATE PLACED ON right WRIST -: 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 She also has a common-law partner. She does not work. Patient is DNR. - Family History Father -: Heart disease, Lung disease Mother -: Lung disease, Diabetes - Social History Smoking Status: Former smoker Alcohol use: No CD- Drugs: No Caffeine use: Yes Place of Residence: Home Review of Systems General: Weakness, Malaise, As per HPI Eyes: Unremarkable ENT: Unremarkable Respiratory: As per HPI Cardiovascular: Light Headedness, As per HPI Gastrointestinal: Diarrhea, As per HPI Genitourinary: Unremarkable Musculoskeletal: Unremarkable Integumentary: As per HPI Neurological: As per HPI Lymphatics: Unremarkable Physical Examination - Physical Exam General: Alert, In no apparent distress, Oriented x3, Cooperative HEENT: Atraumatic, Normocephalic, Other (Dry mucous membranes) Neck: Supple, No Thyromegaly Respiratory: Clear to auscultation bilaterally, Normal air movement Cardiovascular: Normal pulses, Regular rate/rhythm Gastrointestinal: Normal bowel sounds, Soft and benign, Non-distended, No tenderness, No masses, No rebound, No guarding Musculoskeletal: No erythema, No tenderness, No warmth Integumentary: No erythema, No warmth, No cyanosis, Other (Ulcers to the lower extremities unchanged since yesterday) Neurological: Normal speech, Normal strength at 5/5 x4 extr, Normal tone, Normal affect - Studies Laboratory Data (last 24 hrs) 06/20/18 15:30: WBC 12.0 H D, Hgb 12.0, Hct 36.9, Plt Count 165 06/20/18 15:30: Sodium 132 L, Potassium 3.8, BUN 53 H D, Creatinine 2.60 H D, Glucose 218 H, Magnesium 2.1 Assessment and Plan - Plan Impression: Syncope likely dehydration with acute on chronic renal failure complicated with use of medication-diuretic therapy/JENNIFER-inhibitor Chronic diastolic CHF Severe COPD, oxygen-dependent Diabetes mellitus type 2, insulin-dependent, uncontrolled Hypertension Hyperlipidemia Depression with anxiety Diabetic neuropathy with chronic pain Chronic diarrhea Chronic ulcers to the feet bilateral monitored by a wound care PVD Former tobacco use Seasonal allergies Chronic headaches Plan: Syncope with noted hypotension likely from dehydration with acute on chronic renal failure complicated with use of medication-diuretic therapy/JENNIFER-inhibitor : Will hold Lasix and lisinopril. Blood pressure improved with hydration. Will start IV fluids. Will check renal ultrasound. Will check CT head. Will consult Nephrology for further recommendation. Will need to monitor blood pressure closely. Monitor for orthostatics changes. Recheck lab in the morning. Will have physical therapy assess ambulation. Will need to check orthostatics tomorrow. Will discuss with social media marketing analyst about skilled placement. Chronic diastolic CHF: Patient admitted 2 days ago for acute on chronic diastolic CHF. We will hold Lasix and fluid restriction at this time. Severe COPD, oxygen-dependent: Will continue with oxygen. Will continue with her COPD medication. Maintain sats above 88%. Diabetes mellitus type 2, insulin-dependent, uncontrolled: Will start basal insulin. Will provide sliding scale Hypertension: Will hold [id number]. Will monitor closely. Hyperlipidemia: Will restart home medication. Depression with anxiety: Will restart home medication-Depakote and Zoloft. Diabetic neuropathy with chronic pain: Will provide low-dose tramadol as needed for pain. Will continue with her Lyrica. Chronic diarrhea: Will provide Imodium. Recent stool study negative for C diff. Chronic ulcers to the feet bilateral monitored by a wound care: Will continue with wound care. PVD: Will restart aspirin and Plavix. Will provide DVT prophylaxis. Former tobacco use: Will provide nicotine patch. Seasonal allergies: Will continue with Singulair. Chronic headaches: Will monitor closely. Will check CT head. Discharge Plan: Other (Skilled placement) Plan to discharge in: Greater than 2 days - Advance Directives Does patient have a Living Will: No Does patient have a Durable POA for Healthcare: No - Code Status/Comfort Care Code Status Assessed: Yes (Patient DNR) Time Spent Managing Pts Care (In Minutes): 55
--- NOTE | 2018-06-20 18:18 | RAD REPORT ---
EXAM DESCRIPTION: CT - Head Brain Wo Cont - 06/20/2018 6:05 pm CLINICAL HISTORY: Syncope COMPARISON: Head Brain Wo Cont dated 02/03/2017; Head Brain Wo Cont dated 10/12/2016 TECHNIQUE: All CT scans are performed using dose optimization technique as appropriate and may inclu de automated exposure control or mA/KV adjustment according to patient size. FINDINGS: No intracranial hemorrhage, hydrocephalus or extra-axial fluid collection.No areas of brai n edema or evidence of midline shift. The paranasal sinuses and mastoids are clear. The calvarium is intact. IMPRESSION: No acute intracranial abnormality.
--- NOTE | 2018-06-20 18:37 | RAD REPORT ---
EXAM DESCRIPTION: US - Renal Ultrasound-Complete - 06/20/2018 6:20 pm CLINICAL HISTORY: acute renal failure, dehydration COMPARISON: RP EXAM COMPLETE dated 07/17/2014 FINDINGS: Both kidneys are normal in size, shape and echotexture. The right kidney measures 10.7 x 5.0 x 4.5 cm. No hydronephrosis, focal mass or perinephric fluid. The left kidney measures 10.3 x 5.5 x 5.0 cm. No hydronephrosis, focal mass or perinephric fluid. The urinary bladder is incompletely distended without gross abnormality seen. IMPRESSION: Unremarkable renal sonogram.
[2018-06-20 19:41] LABS: Urine Blood NEGATIVE (NEG); Urine Glucose 3+ (NEG); Urine Protein 2+ (NEG); Urine Specific Gravity 1.015 (1.005-1.030)
[2018-06-20] MEDS ORDERED: ENOXAPARIN 30 MG/0.3 ML SQ SCH (20:00)
[2018-06-20] MEDS ORDERED: predniSONE 10 MG TAB PO SCH (21:00)
[2018-06-20] MEDS ORDERED: INSULIN -REGULAR HUMAN 50 UNIT/0.5 ML ML SQ SCH (21:00)
[2018-06-20] MEDS ORDERED: INSULIN GLARGINE 100 UNITS/ML SQ SCH (21:00)
[2018-06-20] MEDS: NA CHLORIDE 0.9% 1,000 ML IV SCH (21:37)
[2018-06-20] MEDS: NICOTINE 21 MG/PAT TD SCH (21:38)
[2018-06-20] MEDS: ENOXAPARIN 30 MG/0.3 ML SQ SCH (21:38)
[2018-06-20] MEDS: DIVALPROEX ER 250 MG TAB PO SCH (21:39)
[2018-06-20] MEDS: PREGABALIN 150 MG CAP PO SCH (21:39)
[2018-06-20] MEDS: ATORVASTATIN 10 MG TAB PO SCH (21:39)
[2018-06-20] MEDS: MONTELUKAST 10 MG TAB PO SCH (21:40)
[2018-06-20] MEDS: ARFORMOTEROL TARTRATE 15 MCG/2 ML VIAL.NEB NEB SCH (21:40)
[2018-06-20 22:23] VITALS: BMI 27.6
[2018-06-20 23:46] LABS: CKMB Creatine Kinase MB < 1.0 ng/mL (0.3-3.6); Creatine Phosphokinase 22 U/L (26-192); Troponin I < 0.02 ng/mL (0.0-0.045)
[2018-06-21] MEDS ORDERED: NA CHLORIDE 0.9% 1,000 ML IV ONE ×2 (00:08→03:26)
[2018-06-21 03:31] LABS: Urine Appearance CLEAR; Urine Bilirubin NEGATIVE (NEG); Urine Blood 2+ (NEG); Urine Color YELLOW; Urine Glucose 3+ (NEG); Urine Protein NEGATIVE (NEG); Urine Specific Gravity 1.015 (1.005-1.030); Urine Urobilinogen 0.2 mg/dL (0.2-1.0)
[2018-06-21 03:34] LABS: Urine Microscopic Reflex ORDER UMIC
[2018-06-21] MEDS: NA CHLORIDE 0.9% 1,000 ML IV SCH ×5 (04:00→23:21)
[2018-06-21 04:14] LABS: Urine Bacteria <20 /HPF (<20); Urine Culture Reflex Order NOT NEEDED; Urine RBC <5 /HPF (NONE SEEN)
[2018-06-21 04:51] LABS: Potassium 4.5 mmol/L (3.5-5.1)
[2018-06-21 05:16] LABS: Absolute Lymphocytes (CBC) 0.5 K/uL (0.7-4.9); Absolute Monocytes 0.1 K/uL (0.1-1.3); Basophils % 0.1 % (0-1.3); Hematocrit 34.3 % (36.0-45.0); Lymphocytes % 9.6 % (15.3-44.8); MCH 26.7 pg (27.0-35.0); MCV 79.5 fL (80-100); MPV 9.4 fL (7.6-11.3); Monocytes % 2.6 % (3.3-12.3); RBC Red Blood Cell Count 4.31 M/uL (3.86-4.86)
[2018-06-21 05:40] LABS: Blood Morphology Comment NOT SEEN (NOT SEEN); Platelet Estimate ADEQ
[2018-06-21] MEDS: TRAMADOL HCL 50 MG TAB PO PRN ×2 (05:42→19:13)
[2018-06-21] MEDS: INSULIN -REGULAR HUMAN 50 UNIT/0.5 ML ML SQ SCH ×4 (06:38→20:20)
[2018-06-21 06:52] LABS: CKMB Creatine Kinase MB < 1.0 ng/mL (0.3-3.6); Creatine Phosphokinase 15 U/L (26-192); Troponin I < 0.02 ng/mL (0.0-0.045)
[2018-06-21] MEDS: ARFORMOTEROL TARTRATE 15 MCG/2 ML VIAL.NEB NEB SCH ×2 (07:52→19:55)
[2018-06-21] MEDS: IPRATROPIUM BROM 0.5MG/2.5ML NEB PRN ×2 (07:52→19:55)
--- NOTE | 2018-06-21 08:42 | RAD REPORT ---
EXAM DESCRIPTION: [place] And Lat (2 Views)06/21/2018 6:33 am CLINICAL HISTORY: Shortness of breath COMPARISON: 06/20/2018 FINDINGS: No significant change has occurred in the mild to moderate bilateral pulmonary opacities. The heart is normal size
[2018-06-21] MEDS ORDERED: INSULIN GLARGINE 100 UNITS/ML SQ SCH (09:00)
--- NOTE | 2018-06-21 09:15 | RAD REPORT ---
EXAM DESCRIPTION: MRI - Brain Wo Cont - 06/21/2018 9:06 am CLINICAL HISTORY: Syncope COMPARISON: 06/20/2018 cat scan TECHNIQUE: Axial, sagittal, and coronal magnetic resonance images of the brain were obtained. Contra st was not requested FINDINGS: Mild to moderate signal is present within periventricular, deep and subcortical white boss[place] er bilaterally. Small area of abnormal signal seen within the brainstem. These probably represent isc hemic changes secondary to small vessel disease. Diffusion-weighted/ADC mapping does not reveal evidence of acute infarction. The ventricles are normal caliber. An extra-axial fluid collection is not present. Mild atrophy of the cerebellar vermis is seen. The sinuses and mastoids are clear. IMPRESSION: No acute abnormality is displayed resonance
[2018-06-21] MEDS: PREGABALIN 150 MG CAP PO SCH ×2 (09:25→20:07)
[2018-06-21] MEDS: predniSONE 20 MG TAB PO SCH ×2 (09:26→20:08)
[2018-06-21] MEDS: CLOPIDOGREL 75 MG TABLET PO SCH (09:26)
[2018-06-21] MEDS: ASPIRIN EC 81 MG TAB PO SCH (09:26)
[2018-06-21] MEDS: ENOXAPARIN 30 MG/0.3 ML SQ SCH (09:26)
[2018-06-21] MEDS: SERTRALINE HCL 100 MG TAB PO SCH (09:26)
[2018-06-21] MEDS: DIVALPROEX ER 250 MG TAB PO SCH ×2 (09:26→20:08)
[2018-06-21] MEDS: NICOTINE 21 MG/PAT TD SCH (09:27)
[2018-06-21] MEDS: ACETAMINOPHEN 500 MG TAB PO PRN (16:32)
[2018-06-21] MEDS ORDERED: HYDRALAZINE HCL 20 MG/ML VIAL IV PRN (16:56)
--- NOTE | 2018-06-21 16:56 | P.PN ---
Subjective Date of Service: 06/21/18 Primary Care Provider: Dr. Whalen; Pulmonary-Dr. Chau Chief Complaint: Syncope Subjective: Improving Physical Examination - Vital Signs Temperature: 98.1 F Blood Pressure: 149/64 Pulse: 81 Respirations: 17 Pulse Ox (%): 94 - Physical Exam General: Alert, In no apparent distress, Oriented x3, Cooperative HEENT: Atraumatic Neck: Supple Respiratory: Expiratory wheezes Cardiovascular: Normal pulses, Regular rate/rhythm Gastrointestinal: Normal bowel sounds, Soft and benign, Non-distended, No tenderness, No masses, No rebound, No guarding Musculoskeletal: No erythema, No tenderness, No warmth Integumentary: No tenderness/swelling, No erythema, No warmth, No cyanosis, Other (Ulcers stable) Neurological: Normal speech, Normal strength at 5/5 x4 extr, Normal tone, Normal affect - Studies Laboratory Data (last 24 hrs) 06/20/18 15:30: WBC 12.0 H D, Hgb 12.0, Hct 36.9, Plt Count 165 06/20/18 15:30: Sodium 132 L, Potassium 3.8, BUN 53 H D, Creatinine 2.60 H D, Glucose 218 H, Magnesium 2.1 Microbiology Data (last 24 hrs): 06/20/18 15:30 Blood - Blood Anaerobic Blood Culture - Final Medications List Reviewed: Yes Assessment & Plan Discharge Plan: Other (Skilled placement) Plan to discharge in: 72 Hours Physician Review Additional Text: Impression: Syncope likely dehydration with acute on chronic renal failure complicated with use of medication-diuretic therapy/JENNIFER-inhibitor Chronic diastolic CHF Severe COPD, oxygen-dependent Diabetes mellitus type 2, insulin-dependent, uncontrolled Hypertension Hyperlipidemia Depression with anxiety Diabetic neuropathy with chronic pain Chronic diarrhea Chronic ulcers to the feet bilateral monitored by a wound care PVD Former tobacco use Seasonal allergies Chronic headaches Plan: Syncope with noted hypotension likely from dehydration with acute on chronic renal failure complicated with use of medication-diuretic therapy/JENNIFER-inhibitor : Will hold Lasix and lisinopril. Blood pressure improved with hydration. Will continue with IV fluids. MRI a negative. Renal ultrasound negative. Nephrology consulted. Await further recommendation. Will check orthostatics. Patient desires to go to a skilled facility. Social work to help in this process. Patient will likely need long-term placement as family mentioned to social worker delinquency prevention that they are not able to take care of her. Chronic diastolic CHF: Patient admitted 2 days ago for acute on chronic diastolic CHF. We will hold Lasix and fluid restriction at this time. Severe COPD, oxygen-dependent: Will continue with oxygen. Will continue with her COPD medication. Will provide steroids. Will wean off steroids slowly. Maintain sats above 88%. Diabetes mellitus type 2, insulin-dependent, uncontrolled: Will continue to adjust her insulin. Will provide sliding scale Hypertension: Will hold [id number]. Will monitor closely. Will provide hydralazine as needed for elevated blood pressure Hyperlipidemia: Will continue with her medication. Depression with anxiety: Will will continue with her home medication-Depakote and Zoloft. Diabetic neuropathy with chronic pain: Will provide low-dose tramadol as needed for pain. Will continue with her Lyrica. Chronic diarrhea: Will provide Imodium. Recent stool study negative for C diff. Chronic ulcers to the feet bilateral monitored by a wound care: Will continue with wound care. PVD: Will continue with aspirin and Plavix. Will provide DVT prophylaxis. Former tobacco use: Will provide nicotine patch. Seasonal allergies: Will continue with Singulair. Chronic headaches: Will monitor closely. Will check CT head. Time Spent Managing Pts Care (In Minutes): 55
[2018-06-21] MEDS: ATORVASTATIN 10 MG TAB PO SCH (20:07)
[2018-06-21] MEDS: MONTELUKAST 10 MG TAB PO SCH (20:13)
[2018-06-21] MEDS: INSULIN GLARGINE 100 UNITS/ML SQ SCH (20:21)
[2018-06-22] MEDS: ACETAMINOPHEN 500 MG TAB PO PRN ×2 (04:07→12:32)
[2018-06-22 04:41] LABS: Absolute Lymphocytes (CBC) 1.6 K/uL (0.7-4.9); Absolute Monocytes 0.3 K/uL (0.1-1.3); Absolute Neutrophil 6.2 K/uL (1.8-8.0); Basophils % 0.1 % (0-1.3); Hematocrit 34.8 % (36.0-45.0); Lymphocytes % 20.1 % (15.3-44.8); MCH 26.7 pg (27.0-35.0); MCV 79.1 fL (80-100); MPV 9.4 fL (7.6-11.3); Monocytes % 3.2 % (3.3-12.3)
[2018-06-22 05:05] LABS: Potassium 4.5 mmol/L (3.5-5.1)
[2018-06-22] MEDS: NA CHLORIDE 0.9% 1,000 ML IV SCH (05:41)
[2018-06-22] MEDS: ARFORMOTEROL TARTRATE 15 MCG/2 ML VIAL.NEB NEB SCH ×2 (07:53→19:57)
[2018-06-22] MEDS: ENOXAPARIN 30 MG/0.3 ML SQ SCH (08:15)
[2018-06-22] MEDS: INSULIN GLARGINE 100 UNITS/ML SQ SCH ×2 (08:15→20:13)
[2018-06-22] MEDS: NICOTINE 21 MG/PAT TD SCH (08:16)
[2018-06-22] MEDS: CLOPIDOGREL 75 MG TABLET PO SCH (08:17)
[2018-06-22] MEDS: predniSONE 20 MG TAB PO SCH ×2 (08:17→20:16)
[2018-06-22] MEDS: ASPIRIN EC 81 MG TAB PO SCH (08:17)
[2018-06-22] MEDS: PREGABALIN 150 MG CAP PO SCH ×2 (08:17→20:15)
[2018-06-22] MEDS: DIVALPROEX ER 250 MG TAB PO SCH ×2 (08:18→20:15)
[2018-06-22] MEDS: SERTRALINE HCL 100 MG TAB PO SCH (08:18)
[2018-06-22] MEDS ORDERED: HYDRALAZINE HCL 25 MG TABLET PO SCH (09:00)
[2018-06-22] MEDS: INSULIN -REGULAR HUMAN 50 UNIT/0.5 ML ML SQ SCH ×4 (09:03→20:14)
--- NOTE | 2018-06-22 09:24 | P.CNS ---
Date of Consult: 06/21/18 Reason for Consult: ANA Requesting Physician: Jose Eduardo Fowler Primary Care Provider: Dr. Whalen; Pulmonary-Dr. Chau Chief Complaint: Syncope History of Present Illness: 62 yo WF COPD presented to the ER after a syncopal episode at home in the setting of hypotension. Found to have ANA. No bladder emptying difficulties. No NSAIDs. 62-year-old female presented to the hospital by EMS for syncope. Patient was discharged yesterday due to shortness of breath secondary to acute on chronic COPD and acute on chronic diastolic CHF. The patient reports that she was doing well but will go up this morning very tired. She felt weak in her knees. Upon transfer the patient felt weak, dizzy and had passed out. When EMS arrived blood pressures were around 70 systolic. Room-air saturations were also low in the 80s. Patient was given IV fluids in the emergency room. Blood pressure improved with IV fluids. ER physician reports the patient had feces all over her. The patient improved in emergency room. 17:22 This 62 yrs old Female presents to ER via EMS with complaints of Breathing rn Difficulty. 17:22 The patient has shortness of breath at rest. Onset: The symptoms/episode began/occurred rn at an unknown time. Duration: The symptoms are continuous. The patient's shortness of breath is aggravated by exertion, light activity, talking. Severity of symptoms: At their worst the symptoms were severe in the emergency department the symptoms have improved. The patient has experienced similar episodes in the past. Family reports increased sob, just discharged from this hospital yesterday after overnight stay, daughters reports unable to move her from bed to chairs, too weak, passed out, defecated on herself, when EMS arrived, BP was 50s systolic, pale, and unresponsive, perked up by time they arrived here. Allergies codeine [Codeine] Allergy (Intermediate, Verified 02/03/17 19:52) Itching/Hives/Rash flu vaccine Allergy (Uncoded 02/03/17 19:52) Anaphylaxis Home medications list reviewed: Yes Home Medications: Aspirin 81 mg PO DAILY 01/30/12 Divalproex ER [Depakote *ER] 250 mg PO BID 01/19/15 Clopidogrel Bisulfate [Plavix] 1 tab PO DAILY 09/21/16 Lisinopril [Zestril] 10 mg PO DAILY 09/21/16 Pregabalin [Lyrica] 300 cap PO BID 09/21/16 Sertraline [Zoloft*] 1 tab PO DAILY 09/21/16 Insulin 70/30 NPH/Reg Human [Novolin 70/30*] 0 unit SQ SEECOM 02/03/17 Montelukast [Singulair*] 1 tab PO BEDTIME 10/21/17 Pravastatin Sodium 40 mg PO DAILY 10/21/17 Tiotropium [place] [Spiriva] 1 puff PO DAILY 10/21/17 Albuterol Sulfate [Proventil Hfa] 2 inhaler IH QID PRN 11/22/17 ALPRAZolam [Xanax*] 1 mg PO BEDTIME tab 06/19/18 Albuterol Neb [Proventil 0.083% Neb Soln] 2.5 mg NEB TID PRN #90 amp 06/19/18 Arformoterol Tartrate [Brovana] 15 mcg NEB BIDRESP #60 vial.neb 06/19/18 Furosemide [Lasix] 20 mg PO DAILY #30 tab 06/19/18 Loperamide [Imodium*] 2 mg PO TID PRN 06/19/18 Nicotine [Nicoderm*] 21 mg TD BEDTIME #30 patch.td24 06/19/18 [place]-3 Fatty Acids/Fish Oil [Eql [place]-3 Fish Oil 1,000 mg] 1 each PO DAILY 12/02 Tizanidine [Zanaflex*] 4 mg PO BID PRN tab 06/19/18 Zinc 50 mg PO DAILY 06/19/18 predniSONE [Prednisone*] 20 mg PO SEECOM #15 tab 06/19/18 traMADol HCL [Ultram*] 50 mg PO Q12HP PRN tab 06/19/18 - Past Medical/Surgical History Diabetic: Yes -: Neuropathy -: Diabetes mellitus type 2 insulin-dependent -: A-Fib -: COPD, severe, oxygen-dependent -: Depression with anxiety -: Hyperlipidemia -: Hypertension -: Chronic migraines -: Chronic pain -: Chronic ulcers to the lower extremity -: Chronic renal disease -: CHF, diastolic dysfunction -: APPENDECTOMY, LEFT KNEE surgery, FOOT SX, EYE surgery -: COMPLETE HYSTERECTOMY , PLATE PLACED ON right WRIST -: 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 She also has a common-law partner. She does not work. Patient is DNR. - Family History Father Medical History: Heart disease, Lung disease Mother Medical History: Lung disease, Diabetes - Social History Smoking Status: Current every day smoker Alcohol use: No CD- Drugs: No Caffeine use: Yes Place of Residence: Home Review of Systems 10-point ROS is otherwise unremarkable General: Weakness, Malaise Gastrointestinal: Nausea Neurological: Weakness Physical Examination Temp Pulse Resp BP Pulse Ox 97 F 69 20 124/81 99 06/22/18 07:52 06/22/18 07:52 06/22/18 07:52 06/22/18 07:52 06/22/18 07:52 General: Alert, Oriented x3, Cooperative Neck: Supple Respiratory: Expiratory wheezes, Inspiratory wheezes Cardiovascular: No edema, Regular rate/rhythm Gastrointestinal: Soft and benign, Non-distended Musculoskeletal: No clubbing, No contractures Integumentary: No rashes, No cyanosis Neurological: Normal speech Cr 2.6 at admission. Blood work reviewed in the chart. Imagings Data: EXAM DESCRIPTION: RAD - Chest Single View - 06/20/2018 4:08 pm CLINICAL HISTORY: Shortness of breath, hypotension COMPARISON: June 19 TECHNIQUE: AP portable chest image was obtained 1550 hours . FINDINGS: Lung volumes are similar to comparison. Patient has baseline interstitial lung disease. Pleural and parenchymal opacification at the left base have not changed from June 19. Atelectasis changes are seen in the right lung field. Heart size is normal. Vasculature within normal limits. No pneumothorax is seen. No large pleural effusion identifiable. No gross bony abnormality seen. No acute aortic findings suspected. IMPRESSION: Chronic interstitial lung disease is present. Focal pleural and parenchymal opacification left base stable from prior study. Reason for Exam: acute renal failure, dehydration Report Status: Signed EXAM DESCRIPTION: US - Renal Ultrasound-Complete - 06/20/2018 6:20 pm CLINICAL HISTORY: acute renal failure, dehydration COMPARISON: EXAM COMPLETE dated 07/17/2014 FINDINGS: Both kidneys are normal in size, shape and echotexture. The right kidney measures 10.7 x 5.0 x 4.5 cm. No hydronephrosis, focal mass or perinephric fluid. The left kidney measures 10.3 x 5.5 x 5.0 cm. No hydronephrosis, focal mass or perinephric fluid. The urinary bladder is incompletely distended without gross abnormality seen. IMPRESSION: Unremarkable renal sonogram. Conclusions/Impression: A/ ANA in the setting of hypovolemia. Proteinuria. Syncope due to hypovolemia/ hypotension. HTN. Diastolic CHF, chronic. DM II with CKD. COPD, stable. P/ Continue current POC and Medications. Agree with IVF. Titrate insulina as needed. No NSAIDs. AM labs. Daily weight. Thank you kindly for the consultation.
--- NOTE | 2018-06-22 09:29 | P.PN ---
Date of Service: 06/22/18 Vital Signs Temp Pulse Resp BP Pulse Ox 97 F 69 20 124/81 99 06/22/18 07:52 06/22/18 07:52 06/22/18 07:52 06/22/18 07:52 06/22/18 07:52 Medications Acetaminophen (Tylenol -Extra Strength) 500 mg PO Q4HP PRN PRN Reason: [id number] Stop: 07/20/18 17:47 Last Admin: 06/22/18 04:07 Dose: 500 mg Albuterol Sulfate (Proventil 0.083% Neb Soln) 2.5 mg NEB [id number] PRN PRN Reason: SHORTNESS OF BREATH Stop: 07/20/18 20:01 Alprazolam (Xanax) 0.25 mg PO BEDTIME PRN PRN Reason: INSOMNIA Stop: 07/20/18 17:55 Arformoterol Tartrate (Brovana) 15 mcg NEB BIDRESP [place] Stop: 07/20/18 20:01 Last Admin: 06/22/18 07:53 Dose: 15 mcg Aspirin (Aspirin Ec) 81 mg PO DAILY [place] Stop: 07/21/18 09:01 Last Admin: 06/22/18 08:17 Dose: 81 mg Atorvastatin Calcium (Lipitor) 10 mg PO BEDTIME [place] Stop: 07/20/18 21:01 Last Admin: 06/21/18 20:07 Dose: 10 mg Clopidogrel Bisulfate (Plavix) 75 mg PO DAILY [place] Stop: 07/21/18 09:01 Last Admin: 06/22/18 08:17 Dose: 75 mg Dextrose (Dextrose 50% Syringe) 12.5 gm IV PRN PRN; Protocol PRN Reason: HYPOGLYCEMIA Stop: 07/20/18 17:55 Divalproex Sodium (Depakote *Er*) 250 mg PO BID [place] Stop: 07/20/18 21:01 Last Admin: 06/22/18 08:18 Dose: 250 mg Enoxaparin Sodium (Lovenox 30 Mg Inj) 30 mg SQ DAILY [place] Stop: 07/20/18 18:31 Last Admin: 06/22/18 08:15 Dose: 30 mg Glucagon (Glucagen) 1 mg IM 1X PRN; Protocol PRN Reason: HYPOGLYCEMIA Stop: 07/20/18 17:55 Hydralazine HCl (Apresoline) 10 mg IV Q6HP PRN PRN Reason: HIGH BP Stop: 07/21/18 16:57 Hydralazine HCl (Apresoline) 50 mg PO BID [facility] Stop: 07/22/18 09:01 Last Admin: 06/22/18 09:03 Dose: 50 mg Insulin Glargine (Lantus) 25 units SQ BID [facility] Stop: 07/21/18 21:01 Last Admin: 06/22/18 08:15 Dose: 25 units Insulin Human Regular (Novolin -R) 0 unit SQ [facility]; Protocol Stop: 07/20/18 21:01 Last Admin: 06/22/18 09:03 Dose: 3 unit Ipratropium [place] (Atrovent Neb) 0.5 mg NEB [id number] PRN PRN Reason: SHORTNESS OF BREATH Stop: 07/20/18 20:01 Last Admin: 06/21/18 19:55 Dose: 0.5 mg Loperamide HCl (Imodium) 2 mg PO Q4H PRN PRN Reason: DIARRHEA Stop: 07/20/18 17:55 Montelukast Sodium (Singulair) 10 mg PO BEDTIME [facility] Stop: 07/20/18 21:01 Last Admin: 06/21/18 20:13 Dose: 10 mg Nicotine (Nicoderm) 21 mg TD DAILY [facility] Stop: 07/20/18 18:31 Last Admin: 06/22/18 08:16 Dose: 21 mg Ondansetron HCl (Zofran) 4 mg IV Q6HP PRN PRN Reason: NAUSEA / VOMITING Stop: 07/20/18 17:47 Prednisone (Deltasone) 20 mg PO BID [facility] Stop: 07/21/18 09:01 Last Admin: 06/22/18 08:17 Dose: 20 mg Pregabalin (Lyrica) 300 mg PO BID [facility] Stop: 07/20/18 21:01 Last Admin: 06/22/18 08:17 Dose: 300 mg Sertraline HCl (Zoloft) 100 mg PO DAILY [facility] Stop: 07/21/18 09:01 Last Admin: 06/22/18 08:18 Dose: 100 mg Sodium Chloride (Normal Saline Flush) 10 ml IV BID [facility] Stop: 07/20/18 21:01 Last Admin: 06/22/18 08:18 Dose: 10 ml Tiotropium [place] (Spiriva Handihaler) 1 sprays IH DAILY [place] Stop: 07/21/18 09:01 Tramadol HCl (Ultram) 50 mg PO BID PRN PRN Reason: PAIN Stop: 07/20/18 21:01 Last Admin: 06/21/18 19:13 Dose: 50 mg Microbiology Results 06/20/18 15:30 Blood - Blood Aerobic Blood Culture - Preliminary No growth in 24 hours. 06/20/18 15:30 Blood - Blood Anaerobic Blood Culture - Final Assessment/ Plan: Nephrology. Feeling better today. CP with deep breathing. CPS stable without SOB. No acute events overnight. Vitals, medications, blood work and imaging reviewed in the chart. General: Alert, Oriented x3, Cooperative Neck: Supple Respiratory: Expiratory wheezes, Inspiratory wheezes Cardiovascular: No edema, Regular rate/rhythm Gastrointestinal: Soft and benign, Non-distended Musculoskeletal: No clubbing, No contractures Integumentary: No rashes, No cyanosis Neurological: Normal speech Cr 2.6 at admission. Blood work reviewed in the chart. Imagings Data: EXAM DESCRIPTION: RAD - Chest Single View - 06/20/2018 4:08 pm CLINICAL HISTORY: Shortness of breath, hypotension COMPARISON: June 19 TECHNIQUE: AP portable chest image was obtained 1550 hours . FINDINGS: Lung volumes are similar to comparison. Patient has baseline interstitial lung disease. Pleural and parenchymal opacification at the left base have not changed from June 19. Atelectasis changes are seen in the right lung field. Heart size is normal. Vasculature within normal limits. No pneumothorax is seen. No large pleural effusion identifiable. No gross bony abnormality seen. No acute aortic findings suspected. IMPRESSION: Chronic interstitial lung disease is present. Focal pleural and parenchymal opacification left base stable from prior study. Reason for Exam: acute renal failure, dehydration Report Status: Signed EXAM DESCRIPTION: US - Renal Ultrasound-Complete - 06/20/2018 6:20 pm CLINICAL HISTORY: acute renal failure, dehydration COMPARISON: RP EXAM COMPLETE dated 07/17/2014 FINDINGS: Both kidneys are normal in size, shape and echotexture. The right kidney measures 10.7 x 5.0 x 4.5 cm. No hydronephrosis, focal mass or perinephric fluid. The left kidney measures 10.3 x 5.5 x 5.0 cm. No hydronephrosis, focal mass or perinephric fluid. The urinary bladder is incompletely distended without gross abnormality seen. IMPRESSION: Unremarkable renal sonogram. Conclusions/Impression: A/ ANA in the setting of hypovolemia. Proteinuria. Syncope due to hypovolemia/ hypotension. HTN. Diastolic CHF, chronic. DM II with CKD. COPD, stable. P/ Continue current POC and Medications. Discontinue IVF. Discontinue costello today. Titrate insulina as needed. No NSAIDs. AM labs. Daily weight.
--- NOTE | 2018-06-22 10:00 | P.PN ---
Subjective Date of Service: 06/22/18 Primary Care Provider: Dr. Whalen; Pulmonary-Dr. Chau Chief Complaint: Syncope Subjective: Doing well Physical Examination - Vital Signs Temperature: 97 F Blood Pressure: 124/81 Pulse: 69 Respirations: 20 Pulse Ox (%): 99 - Physical Exam General: Alert, In no apparent distress, Oriented x3, Cooperative HEENT: Atraumatic Neck: Supple Respiratory: Expiratory wheezes Cardiovascular: Normal pulses, Regular rate/rhythm Gastrointestinal: Normal bowel sounds, Soft and benign, Non-distended, No tenderness, No masses, No rebound, No guarding Musculoskeletal: No erythema, No tenderness, No warmth Integumentary: No tenderness/swelling, No erythema, No warmth, No cyanosis Neurological: Normal speech, Normal strength at 5/5 x4 extr, Normal tone, Normal affect - Studies Microbiology Data (last 24 hrs): 06/20/18 15:30 Blood - Blood Anaerobic Blood Culture - Final Medications List Reviewed: Yes Assessment & Plan Discharge Plan: Other (Skilled placement facility) Plan to discharge in: 48 Hours Physician Review Additional Text: Impression: Syncope likely dehydration with acute on chronic renal failure complicated with use of medication-diuretic therapy/JENNIFER-inhibitor Chronic diastolic CHF Severe COPD, oxygen-dependent Diabetes mellitus type 2, insulin-dependent, uncontrolled Hypertension Hyperlipidemia Depression with anxiety Diabetic neuropathy with chronic pain Chronic diarrhea Chronic ulcers to the feet bilateral monitored by a wound care PVD Former tobacco use Seasonal allergies Chronic headaches Plan: Syncope with noted hypotension likely from dehydration with acute on chronic renal failure complicated with use of medication-diuretic therapy/JENNIFER-inhibitor : Will continue to hold Lasix and lisinopril. Blood pressure is much improved and now elevated. Will start hydralazine 25 mg 1 pill twice daily. Will discontinue IV fluids. Will continue to monitor blood pressures closely. MRI brain negative. Renal ultrasound negative. Will ambulate with physical therapy. Will pursue skilled placement facility placement. Family is pursuing long-term care for the patient. Care discussed with patient. Patient understands and agrees. Chronic diastolic CHF: Patient admitted 2 days ago for acute on chronic diastolic CHF. Will continue to hold Lasix. Will discontinue IV fluids. Will monitor her with fluid restriction only. Severe COPD, oxygen-dependent: Will continue with oxygen. Will continue with her COPD medication. Will provide steroids. Will wean off steroids slowly. Maintain sats above 88%. Diabetes mellitus type 2, insulin-dependent, uncontrolled: Will continue to adjust her insulin-Lantus for better control. Will provide sliding scale Hypertension: Will hold [id number]. Blood pressure now elevated. Will start hydralazine 25 mg 1 pill twice daily. Will monitor and adjust appropriately. Hyperlipidemia: Will continue with her medication. Depression with anxiety: Will continue with her home medication-Depakote and Zoloft. Diabetic neuropathy with chronic pain: Will provide low-dose tramadol as needed for pain. Will continue with her Lyrica. Will have physical therapy ambulate and assess for skilled placement. Chronic diarrhea: Will provide Imodium. Recent stool study negative for C diff. Chronic ulcers to the feet bilateral monitored by a wound care: Will continue with wound care. PVD: Will continue with aspirin and Plavix. Will provide DVT prophylaxis. Former tobacco use: Will provide nicotine patch. Seasonal allergies: Will continue with Singulair. Chronic headaches: Will monitor closely. MRI of brain negative Time Spent Managing Pts Care (In Minutes): 55
[2018-06-22] MEDS: TIOTROPIUM 5 SPRAYS/INHALER IH SCH ×2 (11:28→11:30)
[2018-06-22] MEDS: ALPRAZOLAM 0.25 MG TABLET PO PRN (20:15)
[2018-06-22] MEDS: HYDRALAZINE HCL 25 MG TABLET PO SCH (20:15)
[2018-06-22] MEDS: ATORVASTATIN 10 MG TAB PO SCH (20:15)
[2018-06-22] MEDS: MONTELUKAST 10 MG TAB PO SCH (20:16)
[2018-06-22] MEDS: TRAMADOL HCL 50 MG TAB PO PRN (22:03)
[2018-06-23] MEDS: ACETAMINOPHEN 500 MG TAB PO PRN ×2 (02:44→16:43)
[2018-06-23 04:39] LABS: Absolute Lymphocytes (CBC) 2.3 K/uL (0.7-4.9); Absolute Monocytes 0.3 K/uL (0.1-1.3); Absolute Neutrophil 7.6 K/uL (1.8-8.0); Basophils % 0.2 % (0-1.3); Hematocrit 37.1 % (36.0-45.0); Lymphocytes % 22.6 % (15.3-44.8); MCH 26.9 pg (27.0-35.0); MPV 9.1 fL (7.6-11.3); Monocytes % 2.5 % (3.3-12.3); RBC Red Blood Cell Count 4.75 M/uL (3.86-4.86)
[2018-06-23 04:53] LABS: Magnesium 1.9 mg/dL (1.8-2.4); Potassium 4.2 mmol/L (3.5-5.1)
[2018-06-23] MEDS: INSULIN -REGULAR HUMAN 50 UNIT/0.5 ML ML SQ SCH ×5 (07:30→21:00)
[2018-06-23] MEDS: ARFORMOTEROL TARTRATE 15 MCG/2 ML VIAL.NEB NEB SCH ×2 (07:56→20:50)
--- NOTE | 2018-06-23 08:35 | P.PN ---
Subjective Date of Service: 06/23/18 Primary Care Provider: Dr. Whalen; Pulmonary-Dr. Chau Chief Complaint: Syncope Subjective: Doing well Physical Examination - Vital Signs Temperature: 96.8 F Blood Pressure: 138/76 Pulse: 64 Respirations: 18 Pulse Ox (%): 95 - Physical Exam General: Alert, In no apparent distress, Oriented x3, Cooperative HEENT: Atraumatic Neck: Supple Respiratory: Expiratory wheezes Cardiovascular: Normal pulses, Regular rate/rhythm Gastrointestinal: Normal bowel sounds, Soft and benign, Non-distended, No tenderness, No masses, No rebound, No guarding Musculoskeletal: No erythema, No tenderness, No warmth Integumentary: No tenderness/swelling, No erythema, No warmth, No cyanosis Neurological: Normal speech, Normal strength at 5/5 x4 extr, Normal tone, Normal affect - Studies Medications List Reviewed: Yes Assessment & Plan Discharge Plan: Other (group home facility) Plan to discharge in: 24 Hours Physician Review Additional Text: Impression: Syncope likely dehydration with acute on chronic renal failure complicated with use of medication-diuretic therapy/JENNIFER-inhibitor Chronic diastolic CHF Severe COPD, oxygen-dependent Diabetes mellitus type 2, insulin-dependent, uncontrolled Hypertension Hyperlipidemia Depression with anxiety Diabetic neuropathy with chronic pain Chronic diarrhea Chronic ulcers to the feet bilateral monitored by a wound care PVD Former tobacco use Seasonal allergies Chronic headaches Plan: Syncope with noted hypotension likely from dehydration with acute on chronic renal failure complicated with use of medication-diuretic therapy/JENNIFER-inhibitor : Will continue to hold Lasix and lisinopril. Renal function back to baseline. Blood pressure stable. Patient doing well on hydralazine 25 mg twice daily. Will continue with 1500 cc per day fluid restriction. Will continue to monitor blood pressures closely. MRI brain negative. Renal ultrasound negative. Will continue to ambulate with physical therapy. Patient agrees to go to a skilled facility. Anticipate discharge to skilled facility tomorrow. Family is pursuing long-term care for the patient. Patient agrees. Chronic diastolic CHF: Patient doing well with fluid restriction. No need for Lasix at this time. Will monitor her with fluid restriction only. Severe COPD, oxygen-dependent: Will continue with oxygen. Will continue with her COPD medication. Will adjust steroid medication. Maintain sats above 88%. Diabetes mellitus type 2, insulin-dependent, uncontrolled: Will continue to adjust her insulin-Lantus for better control. Will provide sliding scale. Will continue to adjust medication. Hypertension: Lisinopril has been discontinued. Patient now on hydralazine. 25 mg 1 pill twice daily. Will continue monitor and adjust appropriately. Hyperlipidemia: Will continue with her medication. Depression with anxiety: Will continue with her home medication-Depakote and Zoloft. Diabetic neuropathy with chronic pain: Will provide low-dose tramadol as needed for pain. Will continue with her Lyrica. Will have physical therapy ambulate and assess for skilled placement. Chronic diarrhea: Will provide Imodium. Recent stool study negative for C diff. Chronic ulcers to the feet bilateral monitored by a wound care: Will continue with wound care. PVD: Will continue with aspirin and Plavix. Will provide DVT prophylaxis. Former tobacco use: Will provide nicotine patch. Seasonal allergies: Will continue with Singulair. Chronic headaches: Will monitor closely. MRI of brain negative Time Spent Managing Pts Care (In Minutes): 55
[2018-06-23] MEDS: NICOTINE 21 MG/PAT TD SCH (09:02)
[2018-06-23] MEDS: INSULIN GLARGINE 100 UNITS/ML SQ SCH ×2 (09:02→21:12)
[2018-06-23] MEDS: TIOTROPIUM 5 SPRAYS/INHALER IH SCH ×2 (09:02→09:05)
[2018-06-23] MEDS: predniSONE 10 MG TAB PO SCH ×2 (09:03→21:15)
[2018-06-23] MEDS: HYDRALAZINE HCL 25 MG TABLET PO SCH ×2 (09:03→21:15)
[2018-06-23] MEDS: SERTRALINE HCL 100 MG TAB PO SCH (09:04)
[2018-06-23] MEDS: DIVALPROEX ER 250 MG TAB PO SCH ×2 (09:04→21:14)
[2018-06-23] MEDS: PREGABALIN 150 MG CAP PO SCH ×2 (09:04→21:14)
[2018-06-23] MEDS: ASPIRIN EC 81 MG TAB PO SCH (09:04)
[2018-06-23] MEDS: CLOPIDOGREL 75 MG TABLET PO SCH (09:04)
[2018-06-23] MEDS: ENOXAPARIN 30 MG/0.3 ML SQ SCH (09:04)
[2018-06-23] MEDS: IPRATROPIUM BROM 0.5MG/2.5ML NEB PRN (20:50)
[2018-06-23] MEDS: ALPRAZOLAM 0.25 MG TABLET PO PRN (21:14)
[2018-06-23] MEDS: ATORVASTATIN 10 MG TAB PO SCH (21:14)
[2018-06-23] MEDS: TRAMADOL HCL 50 MG TAB PO PRN (21:14)
[2018-06-23] MEDS: MONTELUKAST 10 MG TAB PO SCH (21:15)
[2018-06-24] MEDS: INSULIN -REGULAR HUMAN 50 UNIT/0.5 ML ML SQ SCH ×4 (07:30→21:00)
[2018-06-24] MEDS: HYDRALAZINE HCL 25 MG TABLET PO SCH ×2 (08:45→21:44)
[2018-06-24] MEDS: INSULIN GLARGINE 100 UNITS/ML SQ SCH ×2 (08:45→21:44)
[2018-06-24] MEDS: predniSONE 10 MG TAB PO SCH ×2 (08:45→21:43)
[2018-06-24] MEDS: DIVALPROEX ER 250 MG TAB PO SCH ×2 (08:45→21:44)
[2018-06-24] MEDS: ASPIRIN EC 81 MG TAB PO SCH (08:45)
[2018-06-24] MEDS: NICOTINE 21 MG/PAT TD SCH (08:46)
[2018-06-24] MEDS: ENOXAPARIN 30 MG/0.3 ML SQ SCH (08:46)
[2018-06-24] MEDS: PREGABALIN 150 MG CAP PO SCH ×2 (08:46→21:43)
[2018-06-24] MEDS: CLOPIDOGREL 75 MG TABLET PO SCH (08:47)
[2018-06-24] MEDS: SERTRALINE HCL 100 MG TAB PO SCH (08:47)
[2018-06-24] MEDS: TIOTROPIUM 5 SPRAYS/INHALER IH SCH (08:47)
[2018-06-24] MEDS: ARFORMOTEROL TARTRATE 15 MCG/2 ML VIAL.NEB NEB SCH ×2 (08:53→20:45)
--- NOTE | 2018-06-24 09:40 | P.PN ---
Subjective Date of Service: 06/24/18 Primary Care Provider: Dr. Whalen; Pulmonary-Dr. Chau Chief Complaint: Syncope Subjective: Doing well Physical Examination - Vital Signs Temperature: 97.4 F Blood Pressure: 108/57 Pulse: 79 Respirations: 18 Pulse Ox (%): 94 - Physical Exam General: Alert, In no apparent distress, Oriented x3, Cooperative HEENT: Atraumatic Neck: Supple Respiratory: Clear to auscultation bilaterally, Normal air movement Cardiovascular: Normal pulses, Regular rate/rhythm Gastrointestinal: Normal bowel sounds, Soft and benign, Non-distended, No tenderness, No masses, No rebound, No guarding Musculoskeletal: No erythema, No tenderness, No warmth Integumentary: No tenderness/swelling, No erythema, No warmth, No cyanosis Neurological: Normal speech, Normal strength at 5/5 x4 extr, Normal tone, Normal affect - Studies Medications List Reviewed: Yes Assessment & Plan Discharge Plan: Other (Skilled placement) Plan to discharge in: 24 Hours Physician Review Additional Text: Impression: Syncope likely dehydration with acute on chronic renal failure complicated with use of medication-diuretic therapy/JENNIFER-inhibitor Chronic diastolic CHF Severe COPD, oxygen-dependent Diabetes mellitus type 2, insulin-dependent, uncontrolled Hypertension Hyperlipidemia Depression with anxiety Diabetic neuropathy with chronic pain Chronic diarrhea Chronic ulcers to the feet bilateral monitored by a wound care PVD Former tobacco use Seasonal allergies Chronic headaches Plan: Syncope with noted hypotension likely from dehydration with acute on chronic renal failure complicated with use of medication-diuretic therapy/JENNIFER-inhibitor : Will continue to hold Lasix and lisinopril. Renal function back to baseline. Blood pressure stable. Patient doing well on hydralazine 25 mg twice daily. Will continue with 1500 cc per day fluid restriction. Will continue to monitor blood pressures closely. MRI brain negative. Renal ultrasound negative. Will continue to ambulate with physical therapy. Patient agrees to go to a skilled facility. Anticipate discharge to skilled facility today if approved. Family is pursuing long-term care for the patient. Patient agrees. Chronic diastolic CHF: Patient doing well with fluid restriction. No need for Lasix at this time. Will monitor her with fluid restriction only. Severe COPD, oxygen-dependent: Will continue with oxygen. Will continue with her COPD medication. Will adjust steroid medication. Maintain sats above 88%. Diabetes mellitus type 2, insulin-dependent, uncontrolled: Will continue to adjust her insulin-Lantus for better control. Will provide sliding scale. Will continue to adjust medication. Hypertension: Lisinopril has been discontinued. Patient now on hydralazine. 25 mg 1 pill twice daily. Will continue monitor and adjust appropriately. Hyperlipidemia: Will continue with her medication. Depression with anxiety: Will continue with her home medication-Depakote and Zoloft. Diabetic neuropathy with chronic pain: Will provide low-dose tramadol as needed for pain. Will continue with her Lyrica. Will have physical therapy ambulate and assess for skilled placement. Chronic diarrhea: Will provide Imodium. Recent stool study negative for C diff. Chronic ulcers to the feet bilateral monitored by a wound care: Will continue with wound care. PVD: Will continue with aspirin and Plavix. Will provide DVT prophylaxis. Former tobacco use: Will provide nicotine patch. Seasonal allergies: Will continue with Singulair. Chronic headaches: Will monitor closely. MRI of brain negative Time Spent Managing Pts Care (In Minutes): 55
--- NOTE | 2018-06-24 10:48 | EKG ---
Test Date: 2018-06-21 Test Time: 19:29:25 [employer] Operator: OZZY Sharp MEASUREMENT RESULTS: Intervals: Rate: 74 MA: 120 QRSD: 128 QT: 402 QTc: 446 [place]: P: 43 MA: 120 QRS: 54 T: 21 INTERPRETIVE STATEMENTS: Normal sinus rhythm Right bundle branch block Abnormal ECG Compared to ECG 06/20/2018 15:33:42 No significant changes Electronically Signed On 06-24-18 10:47:32 CDT by Fransisco Khan
--- NOTE | 2018-06-24 10:48 | EKG ---
Test Date: 2018-06-21 Test Time: 19:30:28 Business Planner: OZZY Sharp MEASUREMENT RESULTS: Intervals: Rate: 78 RI: 122 QRSD: 130 QT: 400 QTc: 456 [place]: P: 44 RI: 122 QRS: 50 T: 15 INTERPRETIVE STATEMENTS: Normal sinus rhythm Right bundle branch block Abnormal ECG Compared to ECG 06/21/2018 19:29:25 No significant changes Electronically Signed On 06-24-18 10:47:30 CDT by Fransisco Khan
[2018-06-24] MEDS: TRAMADOL HCL 50 MG TAB PO PRN (17:42)
--- NOTE | 2018-06-24 20:38 | P.PN ---
Date of Service: 06/24/18 Vital Signs Temp Pulse Resp BP Pulse Ox 98.1 F 70 18 151/73 H 93 06/24/18 16:00 06/24/18 16:00 06/24/18 16:00 06/24/18 16:00 06/24/18 16:00 Medications Acetaminophen (Tylenol -Extra Strength) 500 mg PO Q4HP PRN PRN Reason: [id number] Stop: 07/20/18 17:47 Last Admin: 06/23/18 16:43 Dose: 500 mg Albuterol Sulfate (Proventil 0.083% Neb Soln) 2.5 mg NEB [id number] PRN PRN Reason: SHORTNESS OF BREATH Stop: 07/20/18 20:01 Alprazolam (Xanax) 0.25 mg PO BEDTIME PRN PRN Reason: INSOMNIA Stop: 07/20/18 17:55 Last Admin: 06/23/18 21:14 Dose: 0.25 mg Arformoterol Tartrate (Brovana) 15 mcg NEB BIDRESP [place] Stop: 07/20/18 20:01 Last Admin: 06/24/18 08:53 Dose: 15 mcg Aspirin (Aspirin Ec) 81 mg PO DAILY [place] Stop: 07/21/18 09:01 Last Admin: 06/24/18 08:45 Dose: 81 mg Atorvastatin Calcium (Lipitor) 10 mg PO BEDTIME [place] Stop: 07/20/18 21:01 Last Admin: 06/23/18 21:14 Dose: 10 mg Clopidogrel Bisulfate (Plavix) 75 mg PO DAILY [place] Stop: 07/21/18 09:01 Last Admin: 06/24/18 08:47 Dose: 75 mg Dextrose (Dextrose 50% Syringe) 12.5 gm IV PRN PRN; Protocol PRN Reason: HYPOGLYCEMIA Stop: 07/20/18 17:55 Divalproex Sodium (Depakote *Er*) 250 mg PO BID [place] Stop: 07/20/18 21:01 Last Admin: 06/24/18 08:45 Dose: 250 mg Enoxaparin Sodium (Lovenox 30 Mg Inj) 30 mg SQ DAILY [place] Stop: 07/20/18 18:31 Last Admin: 06/24/18 08:46 Dose: 30 mg Glucagon (Glucagen) 1 mg IM 1X PRN; Protocol PRN Reason: HYPOGLYCEMIA Stop: 07/20/18 17:55 Hydralazine HCl (Apresoline) 10 mg IV Q6HP PRN PRN Reason: HIGH BP Stop: 07/21/18 16:57 Hydralazine HCl (Apresoline) 25 mg PO BID [facility] Stop: 07/22/18 21:01 Last Admin: 06/24/18 08:45 Dose: 25 mg Insulin Glargine (Lantus) 27 units SQ BID [facility] Stop: 07/22/18 21:01 Last Admin: 06/24/18 08:45 Dose: 27 units Insulin Human Regular (Novolin -R) 0 unit SQ ACHS [facility]; Protocol Stop: 07/20/18 21:01 Last Admin: 06/24/18 16:30 Dose: Not Given Ipratropium [place] (Atrovent Neb) 0.5 mg NEB [id number] PRN PRN Reason: SHORTNESS OF BREATH Stop: 07/20/18 20:01 Last Admin: 06/23/18 20:50 Dose: 0.5 mg Loperamide HCl (Imodium) 2 mg PO Q4H PRN PRN Reason: DIARRHEA Stop: 07/20/18 17:55 Last Admin: 06/23/18 11:50 Dose: 2 mg Montelukast Sodium (Singulair) 10 mg PO BEDTIME [facility] Stop: 07/20/18 21:01 Last Admin: 06/23/18 21:15 Dose: 10 mg Nicotine (Nicoderm) 21 mg TD DAILY [facility] Stop: 07/20/18 18:31 Last Admin: 06/24/18 08:46 Dose: 21 mg Ondansetron HCl (Zofran) 4 mg IV Q6HP PRN PRN Reason: NAUSEA / VOMITING Stop: 07/20/18 17:47 Prednisone (Deltasone) 10 mg PO BID [facility] Stop: 07/23/18 09:01 Last Admin: 06/24/18 08:45 Dose: 10 mg Pregabalin (Lyrica) 300 mg PO BID [facility] Stop: 07/20/18 21:01 Last Admin: 06/24/18 08:46 Dose: 300 mg Sertraline HCl (Zoloft) 100 mg PO DAILY [facility] Stop: 07/21/18 09:01 Last Admin: 06/24/18 08:47 Dose: 100 mg Sodium Chloride (Normal Saline Flush) 10 ml IV BID [place] Stop: 07/20/18 21:01 Last Admin: 06/24/18 08:47 Dose: 10 ml Tiotropium [place] (Spiriva Handihaler) 1 sprays IH DAILY [place] Stop: 07/21/18 09:01 Last Admin: 06/24/18 08:47 Dose: 1 spr Tramadol HCl (Ultram) 50 mg PO BID PRN PRN Reason: PAIN Stop: 07/20/18 21:01 Last Admin: 06/24/18 17:42 Dose: 50 mg Microbiology Results 06/20/18 15:30 Blood - Blood Aerobic Blood Culture - Preliminary No growth in 24 hours. 06/20/18 15:30 Blood - Blood Anaerobic Blood Culture - Final Assessment/ Plan: Nephrology. Feeling better today. CPS stable without SOB or CP. No acute events overnight. Vitals, medications, blood work and imaging reviewed in the chart. General: Alert, Oriented x3, Cooperative Neck: Supple Respiratory: Expiratory wheezes, Inspiratory wheezes Cardiovascular: No edema, Regular rate/rhythm Gastrointestinal: Soft and benign, Non-distended Musculoskeletal: No clubbing, No contractures Integumentary: No rashes, No cyanosis Neurological: Normal speech Cr 2.6 at admission. Blood work reviewed in the chart. Imagings Data: EXAM DESCRIPTION: RAD - Chest Single View - 06/20/2018 4:08 pm CLINICAL HISTORY: Shortness of breath, hypotension COMPARISON: June 19 TECHNIQUE: AP portable chest image was obtained 1550 hours . FINDINGS: Lung volumes are similar to comparison. Patient has baseline interstitial lung disease. Pleural and parenchymal opacification at the left base have not changed from June 19. Atelectasis changes are seen in the right lung field. Heart size is normal. Vasculature within normal limits. No pneumothorax is seen. No large pleural effusion identifiable. No gross bony abnormality seen. No acute aortic findings suspected. IMPRESSION: Chronic interstitial lung disease is present. Focal pleural and parenchymal opacification left base stable from prior study. Reason for Exam: acute renal failure, dehydration Report Status: Signed EXAM DESCRIPTION: US - Renal Ultrasound-Complete - 06/20/2018 6:20 pm CLINICAL HISTORY: acute renal failure, dehydration COMPARISON: RP EXAM COMPLETE dated 07/17/2014 FINDINGS: Both kidneys are normal in size, shape and echotexture. The right kidney measures 10.7 x 5.0 x 4.5 cm. No hydronephrosis, focal mass or perinephric fluid. The left kidney measures 10.3 x 5.5 x 5.0 cm. No hydronephrosis, focal mass or perinephric fluid. The urinary bladder is incompletely distended without gross abnormality seen. IMPRESSION: Unremarkable renal sonogram. Conclusions/Impression: A/ ANA in the setting of hypovolemia. Proteinuria. Syncope due to hypovolemia/ hypotension. HTN. Diastolic CHF, chronic. DM II with CKD. COPD, stable. Distal LE Ulcers. P/ Continue current POC and Medications. Titrate insulin as needed. Wound care as ordered. No NSAIDs. AM labs. Daily weight.
[2018-06-24] MEDS: MONTELUKAST 10 MG TAB PO SCH (21:43)
[2018-06-24] MEDS: ATORVASTATIN 10 MG TAB PO SCH (21:43)
[2018-06-25] MEDS: HYDRALAZINE HCL 25 MG TABLET PO SCH (09:13)
[2018-06-25] MEDS: INSULIN -REGULAR HUMAN 50 UNIT/0.5 ML ML SQ SCH ×4 (09:13→21:00)
[2018-06-25] MEDS: INSULIN GLARGINE 100 UNITS/ML SQ SCH ×2 (09:14→21:13)
[2018-06-25] MEDS: ASPIRIN EC 81 MG TAB PO SCH (09:14)
[2018-06-25] MEDS: predniSONE 10 MG TAB PO SCH ×2 (09:14→21:12)
[2018-06-25] MEDS: ENOXAPARIN 30 MG/0.3 ML SQ SCH (09:14)
[2018-06-25] MEDS: PREGABALIN 150 MG CAP PO SCH ×2 (09:14→21:11)
[2018-06-25] MEDS: NICOTINE 21 MG/PAT TD SCH (09:14)
[2018-06-25] MEDS: DIVALPROEX ER 250 MG TAB PO SCH ×2 (09:14→21:12)
[2018-06-25] MEDS: SERTRALINE HCL 100 MG TAB PO SCH (09:15)
[2018-06-25] MEDS: TIOTROPIUM 5 SPRAYS/INHALER IH SCH (09:15)
[2018-06-25] MEDS: CLOPIDOGREL 75 MG TABLET PO SCH (09:15)
[2018-06-25] MEDS: TRAMADOL HCL 50 MG TAB PO PRN ×2 (10:07→21:11)
--- NOTE | 2018-06-25 12:14 | P.PN ---
Subjective Date of Service: 06/25/18 Primary Care Provider: Dr. Whalen; Pulmonary-Dr. Chau Chief Complaint: Syncope Subjective: Doing well Physical Examination - Vital Signs Temperature: 97.5 F Blood Pressure: 110/56 Pulse: 83 Respirations: 18 Pulse Ox (%): 92 - Physical Exam General: Alert, In no apparent distress, Oriented x3, Cooperative HEENT: Atraumatic Neck: Supple Respiratory: Clear to auscultation bilaterally, Normal air movement Cardiovascular: Normal pulses, Regular rate/rhythm Gastrointestinal: Normal bowel sounds, Soft and benign, Non-distended, No tenderness, No masses, No rebound, No guarding Musculoskeletal: No erythema, No tenderness, No warmth Integumentary: No tenderness/swelling, No erythema, No warmth, No cyanosis Neurological: Normal speech, Normal strength at 5/5 x4 extr, Normal tone - Studies Medications List Reviewed: Yes Assessment & Plan Discharge Plan: Other (Skilled placement facility) Plan to discharge in: 24 Hours Physician Review Additional Text: Impression: Syncope likely dehydration with acute on chronic renal failure complicated with use of medication-diuretic therapy/JENNIFER-inhibitor Chronic diastolic CHF Severe COPD, oxygen-dependent Diabetes mellitus type 2, insulin-dependent, uncontrolled Hypertension Hyperlipidemia Depression with anxiety Diabetic neuropathy with chronic pain Chronic diarrhea Chronic ulcers to the feet bilateral monitored by a wound care PVD Former tobacco use Seasonal allergies Chronic headaches Plan: Syncope with noted hypotension likely from dehydration with acute on chronic renal failure complicated with use of medication-diuretic therapy/JENNIFER-inhibitor : Will continue to hold Lasix and lisinopril. Renal function stable. Will recheck today. Patient doing well with hydralazine 25 mg twice daily. Will continue with 1500 cc per day fluid restriction. Patient awaiting skilled placement approval. So far MRI brain negative. Renal ultrasound negative. Chronic diastolic CHF: Patient doing well with fluid restriction. No need for Lasix at this time. Will monitor her with fluid restriction only. Severe COPD, oxygen-dependent: Will continue with oxygen. Will continue with her COPD medication. Will adjust steroid medication. Maintain sats above 88%. Diabetes mellitus type 2, insulin-dependent, uncontrolled: Will continue to adjust her insulin-Lantus for better control. Will provide sliding scale. Will continue to adjust medication. Hypertension: Lisinopril has been discontinued. Patient now on hydralazine 25 mg 1 pill twice daily. Blood pressures remain stable. Will continue monitor and adjust appropriately. Hyperlipidemia: Will continue with her medication. Depression with anxiety: Will continue with her home medication-Depakote and Zoloft. Diabetic neuropathy with chronic pain: Will provide low-dose tramadol as needed for pain. Will continue with her Lyrica. Will have physical therapy ambulate and assess for skilled placement. Chronic diarrhea: Will provide Imodium. Recent stool study negative for C diff. Chronic ulcers to the feet bilateral monitored by a wound care: Will continue with wound care. PVD: Will continue with aspirin and Plavix. Will provide DVT prophylaxis. Former tobacco use: Will provide nicotine patch. Seasonal allergies: Will continue with Singulair. Chronic headaches: Will monitor closely. MRI of brain negative Time Spent Managing Pts Care (In Minutes): 55
[2018-06-25 12:59] LABS: Potassium 4.2 mmol/L (3.5-5.1)
[2018-06-25] MEDS: ARFORMOTEROL TARTRATE 15 MCG/2 ML VIAL.NEB NEB SCH ×2 (13:42→20:24)
[2018-06-25] MEDS: ACETAMINOPHEN 500 MG TAB PO PRN (17:38)
[2018-06-25] MEDS: ATORVASTATIN 10 MG TAB PO SCH (21:11)
[2018-06-25] MEDS: MONTELUKAST 10 MG TAB PO SCH (21:11)
[2018-06-26] MEDS: ARFORMOTEROL TARTRATE 15 MCG/2 ML VIAL.NEB NEB SCH ×2 (07:52→19:46)
[2018-06-26] MEDS: ENOXAPARIN 30 MG/0.3 ML SQ SCH (09:45)
[2018-06-26] MEDS: INSULIN GLARGINE 100 UNITS/ML SQ SCH ×2 (09:45→21:03)
[2018-06-26] MEDS: TIOTROPIUM 5 SPRAYS/INHALER IH SCH (09:45)
[2018-06-26] MEDS: INSULIN -REGULAR HUMAN 50 UNIT/0.5 ML ML SQ SCH ×4 (09:45→21:04)
[2018-06-26] MEDS: DIVALPROEX ER 250 MG TAB PO SCH ×2 (09:46→21:03)
[2018-06-26] MEDS: CLOPIDOGREL 75 MG TABLET PO SCH (09:47)
[2018-06-26] MEDS: SERTRALINE HCL 100 MG TAB PO SCH (09:47)
[2018-06-26] MEDS: predniSONE 10 MG TAB PO SCH ×2 (09:47→21:03)
[2018-06-26] MEDS: NICOTINE 21 MG/PAT TD SCH (09:47)
[2018-06-26] MEDS: TRAMADOL HCL 50 MG TAB PO PRN (09:47)
[2018-06-26] MEDS: PREGABALIN 150 MG CAP PO SCH ×2 (09:47→21:02)
[2018-06-26] MEDS: ASPIRIN EC 81 MG TAB PO SCH (09:47)
[2018-06-26] MEDS: HYDRALAZINE HCL 25 MG TABLET PO SCH (09:48)
--- NOTE | 2018-06-26 12:15 | P.PN ---
Subjective Date of Service: 06/26/18 Primary Care Provider: Dr. Whalen; Pulmonary-Dr. Chau Chief Complaint: Syncope Subjective: Improving Physical Examination - Vital Signs Temperature: 97.4 F Blood Pressure: 118/58 Pulse: 73 Respirations: 18 Pulse Ox (%): 95 - Physical Exam General: Alert, In no apparent distress, Oriented x3, Cooperative HEENT: Atraumatic, Mucous membr. moist/pink Neck: Supple Respiratory: Clear to auscultation bilaterally, Normal air movement Cardiovascular: Normal pulses, Regular rate/rhythm Gastrointestinal: Normal bowel sounds, Soft and benign, Non-distended, No tenderness, No masses, No rebound, No guarding Musculoskeletal: No erythema, No tenderness, No warmth Integumentary: No tenderness/swelling, No erythema, No warmth, No cyanosis Neurological: Normal speech, Normal strength at 5/5 x4 extr, Normal tone, Normal affect - Studies Microbiology Data (last 24 hrs): 06/20/18 15:30 Blood - Blood Aerobic Blood Culture - Final No growth in 5 days. 06/20/18 15:30 Blood - Blood Anaerobic Blood Culture - Final Medications List Reviewed: Yes Assessment & Plan Discharge Plan: Other (care home facility placement) Plan to discharge in: 24 Hours Physician Review Additional Text: Impression: Syncope likely dehydration with acute on chronic renal failure, stage IV, complicated with use of medication-diuretic therapy/JENNIFER-inhibitor Chronic diastolic CHF Severe COPD, oxygen-dependent Diabetes mellitus type 2, insulin-dependent, uncontrolled-hyperglycemia Hypertension Hyperlipidemia Depression with anxiety Diabetic neuropathy with chronic pain Chronic diarrhea Chronic ulcers to the feet bilateral monitored by a wound care PVD Former tobacco use Seasonal allergies Chronic headaches Plan: Syncope with noted hypotension likely from dehydration with acute on chronic renal failure, stage IV, complicated with use of medication-diuretic therapy/JENNIFER -inhibitor: Will continue to hold Lasix and lisinopril. Will continue off medication at discharge. Renal function stable and improved. Will recheck today. Patient doing well with hydralazine 25 mg twice daily. Will continue with 1500 cc per day fluid restriction. Patient awaiting skilled placement approval. So far MRI brain negative. Renal ultrasound negative. Chronic diastolic CHF: Patient doing well with fluid restriction. No need for Lasix at this time. Will monitor her with fluid restriction only. Severe COPD, oxygen-dependent: Will continue with oxygen. Will continue with her COPD medication. Will adjust steroid medication. Maintain sats above 88%. Diabetes mellitus type 2, insulin-dependent, uncontrolled-hyperglycemia: Will continue to adjust her insulin-Lantus for better control. Will provide sliding scale. Blood sugar better controlled. Will continue to adjust medication. Hypertension: Lisinopril has been discontinued. Patient now on hydralazine 25 mg 1 pill twice daily. Blood pressures remain stable. Will continue monitor and adjust appropriately. Hyperlipidemia: Will continue with her medication. Depression with anxiety: Will continue with her home medication-Depakote and Zoloft. Diabetic neuropathy with chronic pain: Will provide low-dose tramadol as needed for pain. Will continue with her Lyrica. Will have physical therapy ambulate and assess for skilled placement. Chronic diarrhea: Will provide Imodium. Recent stool study negative for C diff. Chronic ulcers to the feet bilateral monitored by a wound care: Will continue with wound care. PVD: Will continue with aspirin and Plavix. Will provide DVT prophylaxis. Former tobacco use: Will provide nicotine patch. Seasonal allergies: Will continue with Singulair. Chronic headaches: Will monitor closely. MRI of brain negative I will turn the service over to Dr. Crain tomorrow. I will go over the plan of care with her. Time Spent Managing Pts Care (In Minutes): 55
--- NOTE | 2018-06-26 13:54 | P.PN ---
Date of Service: 06/25/18 Vital Signs Temp Pulse Resp BP Pulse Ox 97.4 F 73 18 118/58 L 95 06/26/18 12:15 06/26/18 12:15 06/26/18 12:15 06/26/18 12:15 06/26/18 12:15 Medications Acetaminophen (Tylenol -Extra Strength) 500 mg PO Q4HP PRN PRN Reason: [id number] Stop: 07/20/18 17:47 Last Admin: 06/25/18 17:38 Dose: 500 mg Albuterol Sulfate (Proventil 0.083% Neb Soln) 2.5 mg NEB [id number] PRN PRN Reason: SHORTNESS OF BREATH Stop: 07/20/18 20:01 Alprazolam (Xanax) 0.25 mg PO BEDTIME PRN PRN Reason: INSOMNIA Stop: 07/20/18 17:55 Last Admin: 06/23/18 21:14 Dose: 0.25 mg Arformoterol Tartrate (Brovana) 15 mcg NEB BIDRESP [place] Stop: 07/20/18 20:01 Last Admin: 06/26/18 07:52 Dose: 15 mcg Aspirin (Aspirin Ec) 81 mg PO DAILY [place] Stop: 07/21/18 09:01 Last Admin: 06/26/18 09:47 Dose: 81 mg Atorvastatin Calcium (Lipitor) 10 mg PO BEDTIME [place] Stop: 07/20/18 21:01 Last Admin: 06/25/18 21:11 Dose: 10 mg Clopidogrel Bisulfate (Plavix) 75 mg PO DAILY [place] Stop: 07/21/18 09:01 Last Admin: 06/26/18 09:47 Dose: 75 mg Dextrose (Dextrose 50% Syringe) 12.5 gm IV PRN PRN; Protocol PRN Reason: HYPOGLYCEMIA Stop: 07/20/18 17:55 Divalproex Sodium (Depakote *Er*) 250 mg PO BID [place] Stop: 07/20/18 21:01 Last Admin: 06/26/18 09:46 Dose: 250 mg Enoxaparin Sodium (Lovenox 30 Mg Inj) 30 mg SQ DAILY [place] Stop: 07/20/18 18:31 Last Admin: 06/26/18 09:45 Dose: 30 mg Glucagon (Glucagen) 1 mg IM 1X PRN; Protocol PRN Reason: HYPOGLYCEMIA Stop: 07/20/18 17:55 Hydralazine HCl (Apresoline) 10 mg IV Q6HP PRN PRN Reason: HIGH BP Stop: 07/21/18 16:57 Hydralazine HCl (Apresoline) 25 mg PO DAILY [facility] Stop: 07/26/18 09:01 Last Admin: 06/26/18 09:48 Dose: 25 mg Insulin Glargine (Lantus) 27 units SQ BID [facility] Stop: 07/22/18 21:01 Last Admin: 06/26/18 09:45 Dose: 27 units Insulin Human Regular (Novolin -R) 0 unit SQ ACHS [facility]; Protocol Stop: 07/20/18 21:01 Last Admin: 06/26/18 11:30 Dose: Not Given Ipratropium [place] (Atrovent Neb) 0.5 mg NEB [id number] PRN PRN Reason: SHORTNESS OF BREATH Stop: 07/20/18 20:01 Last Admin: 06/23/18 20:50 Dose: 0.5 mg Loperamide HCl (Imodium) 2 mg PO Q4H PRN PRN Reason: DIARRHEA Stop: 07/20/18 17:55 Last Admin: 06/23/18 11:50 Dose: 2 mg Montelukast Sodium (Singulair) 10 mg PO BEDTIME [facility] Stop: 07/20/18 21:01 Last Admin: 06/25/18 21:11 Dose: 10 mg Nicotine (Nicoderm) 21 mg TD DAILY [facility] Stop: 07/20/18 18:31 Last Admin: 06/26/18 09:47 Dose: 21 mg Ondansetron HCl (Zofran) 4 mg IV Q6HP PRN PRN Reason: NAUSEA / VOMITING Stop: 07/20/18 17:47 Prednisone (Deltasone) 10 mg PO BID [facility] Stop: 07/23/18 09:01 Last Admin: 06/26/18 09:47 Dose: 10 mg Pregabalin (Lyrica) 300 mg PO BID [facility] Stop: 07/20/18 21:01 Last Admin: 06/26/18 09:47 Dose: 300 mg Sertraline HCl (Zoloft) 100 mg PO DAILY [facility] Stop: 07/21/18 09:01 Last Admin: 06/26/18 09:47 Dose: 100 mg Sodium Chloride (Normal Saline Flush) 10 ml IV BID [place] Stop: 07/20/18 21:01 Last Admin: 06/26/18 09:00 Dose: 10 ml Tiotropium [place] (Spiriva Handihaler) 1 sprays IH DAILY [place] Stop: 07/21/18 09:01 Last Admin: 06/26/18 09:45 Dose: 1 spr Tramadol HCl (Ultram) 50 mg PO BID PRN PRN Reason: PAIN Stop: 07/20/18 21:01 Last Admin: 06/26/18 09:47 Dose: 50 mg Microbiology Results 06/20/18 15:30 Blood - Blood Aerobic Blood Culture - Final No growth in 5 days. 06/20/18 15:30 Blood - Blood Anaerobic Blood Culture - Final Assessment/ Plan: Nephrology. Doing well. CPS stable without SOB or CP. No acute events overnight. Vitals, medications, blood work and imaging reviewed in the chart. General: Alert, Oriented x3, Cooperative Neck: Supple Respiratory: Expiratory wheezes, Inspiratory wheezes Cardiovascular: No edema, Regular rate/rhythm Gastrointestinal: Soft and benign, Non-distended Musculoskeletal: No clubbing, No contractures Integumentary: No rashes, No cyanosis Neurological: Normal speech Distal LE ulcers. Cr 2.6 at admission. Blood work reviewed in the chart. Imagings Data: EXAM DESCRIPTION: RAD - Chest Single View - 06/20/2018 4:08 pm CLINICAL HISTORY: Shortness of breath, hypotension COMPARISON: June 19 TECHNIQUE: AP portable chest image was obtained 1550 hours . FINDINGS: Lung volumes are similar to comparison. Patient has baseline interstitial lung disease. Pleural and parenchymal opacification at the left base have not changed from June 19. Atelectasis changes are seen in the right lung field. Heart size is normal. Vasculature within normal limits. No pneumothorax is seen. No large pleural effusion identifiable. No gross bony abnormality seen. No acute aortic findings suspected. IMPRESSION: Chronic interstitial lung disease is present. Focal pleural and parenchymal opacification left base stable from prior study. Reason for Exam: acute renal failure, dehydration Report Status: Signed EXAM DESCRIPTION: US - Renal Ultrasound-Complete - 06/20/2018 6:20 pm CLINICAL HISTORY: acute renal failure, dehydration COMPARISON: RP EXAM COMPLETE dated 07/17/2014 FINDINGS: Both kidneys are normal in size, shape and echotexture. The right kidney measures 10.7 x 5.0 x 4.5 cm. No hydronephrosis, focal mass or perinephric fluid. The left kidney measures 10.3 x 5.5 x 5.0 cm. No hydronephrosis, focal mass or perinephric fluid. The urinary bladder is incompletely distended without gross abnormality seen. IMPRESSION: Unremarkable renal sonogram. Conclusions/Impression: A/ ANA in the setting of hypovolemia. Proteinuria. Syncope due to hypovolemia/ hypotension. HTN. Diastolic CHF, chronic. DM II with CKD. COPD, stable. Distal LE Ulcers. P/ Continue current POC and Medications. Titrate insulin as needed. Wound care as ordered. Check iron studies. Will consider IV iron as needed. No NSAIDs. AM labs. Daily weight.
--- NOTE | 2018-06-26 19:06 | PN ---
Date of Progress Note: 06/26/2018 Subjective: The patient is doing okay and feels well at this time. Denies any other complaints. No overnight events were noted. Objective: Vital Signs: Showing temperature of 97.4, pulse rate of 73, respiratory rate of 18, and blood pressure 118/58. General: She appears in no acute distress. Lungs: Clear to auscultation. Abdomen: Soft and nontender. Extremities: Left foot dressing was noted. Laboratory Data: At this time showing stable creatinine of 1. Electrolytes are stable. BUN of 25. CBC showing stable hemoglobin, hematocrit, and platelet count with a white cell count of 10.2. Impression: 1.Syncope with hypotension from dehydration with leading to acute renal insufficiency, currently wit h improved renal function. The patient is being taken off JENNIFER inhibitor. 2.Chronic diastolic heart failure, compensated at this time. 3.Diabetes with ulcers in the left foot, being followed by wound care. Plan: The patient is overall doing okay. Renal function has significantly improved. She can be dis charged off JENNIFER inhibitor and renal function can be followed. The plan was discussed with the arvin hendricks and all questions were answered. CHRISTOPHER/LUIS Voice ID: [id number] Report ID: [id number]
[2018-06-26] MEDS: ATORVASTATIN 10 MG TAB PO SCH (21:03)
[2018-06-26] MEDS: MONTELUKAST 10 MG TAB PO SCH (21:03)
[2018-06-26] MEDS: ACETAMINOPHEN 500 MG TAB PO PRN (23:24)
[2018-06-27 07:02] LABS: Potassium 4.6 mmol/L (3.5-5.1); Uric Acid 4.9 mg/dL (2.6-6.0)
[2018-06-27] MEDS: INSULIN -REGULAR HUMAN 50 UNIT/0.5 ML ML SQ SCH ×4 (07:30→21:00)
[2018-06-27] MEDS: ARFORMOTEROL TARTRATE 15 MCG/2 ML VIAL.NEB NEB SCH ×2 (07:32→19:38)
[2018-06-27] MEDS: TIOTROPIUM 5 SPRAYS/INHALER IH SCH (08:55)
[2018-06-27] MEDS: INSULIN GLARGINE 100 UNITS/ML SQ SCH ×2 (08:56→21:34)
[2018-06-27] MEDS: NICOTINE 21 MG/PAT TD SCH (08:56)
[2018-06-27] MEDS: ENOXAPARIN 30 MG/0.3 ML SQ SCH (08:56)
[2018-06-27] MEDS: SERTRALINE HCL 100 MG TAB PO SCH (08:57)
[2018-06-27] MEDS: PREGABALIN 150 MG CAP PO SCH ×2 (08:57→21:21)
[2018-06-27] MEDS: predniSONE 10 MG TAB PO SCH ×2 (08:57→21:21)
[2018-06-27] MEDS: HYDRALAZINE HCL 25 MG TABLET PO SCH (08:58)
[2018-06-27] MEDS: ASPIRIN EC 81 MG TAB PO SCH (08:58)
[2018-06-27] MEDS: DIVALPROEX ER 250 MG TAB PO SCH ×2 (08:58→21:22)
[2018-06-27] MEDS: CLOPIDOGREL 75 MG TABLET PO SCH (08:58)
--- NOTE | 2018-06-27 15:25 | P.DS ---
Admission Date: 06/20/18 Discharge Date: 06/27/18 Primary Care Provider: Dr. Whalen; Pulmonary-Dr. Chau Disposition: ROUTINE DISCHARGE Discharge Condition: GOOD Reason for Admission: Syncope Consultations: Pulmonology Nephrology Brief History of Present Illness: 62-year-old female presented to the hospital by EMS for syncope. Patient was discharged yesterday due to shortness of breath secondary to acute on chronic COPD and acute on chronic diastolic CHF. The patient reports that she was doing well but will go up this morning very tired. She felt weak in her knees. Upon transfer the patient felt weak, dizzy and had passed out. When EMS arrived blood pressures were around 70 systolic. Room-air saturations were also low in the 80s. Patient was given IV fluids in the emergency room. Blood pressure improved with IV fluids. ER physician reports the patient had feces all over her. The patient improved in emergency room. On lab white count 12, hemoglobin 12. They can 165. Sodium 132, potassium 3.8. BUN of 53, creatinine 2.6 with a GFR of 19. Glucose 218. Troponin less than 0.02. BMP 740. Pro calcitonin unremarkable. Lactic acid slightly elevated. Chest x-ray showed no opacities. Echo done yesterday showed an EF of 70% with impaired relaxation of the left ventricle. Patient was admitted for treatment. When I saw the patient ER, she appeared dry. Patient had received IV Lasix on her last hospitalization. She was sent home with Lasix 20 mg daily. She was also taking blood pressure medication-lisinopril 10 mg daily. Patient reports that she is compliant with her medications since her last hospitalization. Patient is not over medicating herself with her pain medication. Hospital Course: Discharge diagnosis: Syncope ANA Dehydration Chronic diastolic CHF Severe COPD, oxygen-dependent Diabetes mellitus type 2, insulin-dependent, uncontrolled-hyperglycemia Hypertension Hyperlipidemia Depression with anxiety Diabetic neuropathy with chronic pain Chronic diarrhea Chronic ulcers to the feet bilateral monitored by a wound care PVD Former tobacco use Seasonal allergies Chronic headaches Hospital Course Overall during the hospital stay patient remained stable. The patient was initially admitted to the hospital for syncope most likely secondary to dehydration secondary to JENNIFER-inhibitor usage along with Lasix usage. Patient had marked improvement in her symptoms after admission to the hospital and did well overall and was tolerating her diet well. At that time family requested the patient be sent over to a [facility] facility and thus the goals were sent over to [facility] facility and wants accepted patient was transferred to the facility for further care. Patient syncopal episode did resolve while here in the hospital. Patient had no further syncopal episode while here in the hospital as well. Vital Signs/Physical Exam: Temp Pulse Resp BP Pulse Ox 97.1 F 64 18 135/64 97 06/27/18 08:00 06/27/18 08:00 06/27/18 08:00 06/27/18 08:00 06/27/18 08:00 General: Alert, In no apparent distress HEENT: Atraumatic, PERRLA, EOMI Neck: Supple, JVD not distended Respiratory: Clear to auscultation bilaterally, Normal air movement Cardiovascular: Regular rate/rhythm, Normal S1 S2 Gastrointestinal: Normal bowel sounds, No tenderness Musculoskeletal: No tenderness Integumentary: No rashes Neurological: Normal speech, Normal tone, Normal affect Lymphatics: No axilla or inguinal lymphadenopathy Laboratory Data at Discharge: WBC 10.2 K/uL (4.3-10.9) D 06/23/18 04:11 Hgb 12.8 g/dL (12.0-15.0) 06/23/18 04:11 Hct 37.1 % (36.0-45.0) 06/23/18 04:11 Plt Count 181 K/uL (152-406) 06/23/18 04:11 Sodium 138 mmol/L (136-145) 06/27/18 06:21 Potassium 4.6 mmol/L (3.5-5.1) 06/27/18 06:21 BUN 25 mg/dL (7-18) H 06/27/18 06:21 Creatinine 0.80 mg/dL (0.55-1.3) 06/27/18 06:21 Glucose 148 mg/dL (74-106) H 06/27/18 06:21 Uric Acid 4.9 mg/dL (2.6-6.0) 06/27/18 06:21 Magnesium 1.9 mg/dL (1.8-2.4) 06/23/18 04:11 Troponin I < 0.02 ng/mL (0.0-0.045) 06/21/18 04:23 Home Medications: Aspirin 81 mg PO DAILY 01/30/12 Divalproex ER [Depakote *ER] 250 mg PO BID 01/19/15 Clopidogrel Bisulfate [Plavix] 1 tab PO DAILY 09/21/16 Lisinopril [Zestril] 10 mg PO DAILY 09/21/16 Pregabalin [Lyrica] 300 cap PO BID 09/21/16 Sertraline [Zoloft*] 1 tab PO DAILY 09/21/16 Insulin 70/30 NPH/Reg Human [Novolin 70/30*] 0 unit SQ [place] 02/03/17 Montelukast [Singulair*] 1 tab PO BEDTIME 10/21/17 Pravastatin Sodium 40 mg PO DAILY 10/21/17 Tiotropium [place] [Spiriva] 1 puff PO DAILY 10/21/17 Albuterol Sulfate [Proventil Hfa] 2 inhaler IH QID PRN 11/22/17 ALPRAZolam [Xanax*] 1 mg PO BEDTIME tab 06/19/18 Albuterol Neb [Proventil 0.083% Neb Soln] 2.5 mg NEB TID PRN #90 amp 06/19/18 Arformoterol Tartrate [Brovana] 15 mcg NEB BIDRESP #60 vial.neb 06/19/18 Furosemide [Lasix*] 20 mg PO DAILY #30 tab 06/19/18 Loperamide [Imodium*] 2 mg PO TID PRN 06/19/18 Nicotine [Nicoderm*] 21 mg TD BEDTIME #30 patch.td24 06/19/18 [place]-3 Fatty Acids/Fish Oil [Eql [place]-3 Fish Oil 1,000 mg] 1 each PO DAILY 12/02 Tizanidine [Zanaflex*] 4 mg PO BID PRN tab 06/19/18 Zinc 50 mg PO DAILY 06/19/18 predniSONE [Prednisone*] 20 mg PO SEECOM #15 tab 06/19/18 traMADol HCL [Ultram*] 50 mg PO Q12HP PRN tab 06/19/18 Patient Discharge Instructions: Please f.u with PCP in 1 to 2 days post discharge. NO new medication Diet: Regular Activity: Ad mercedes
[2018-06-27] MEDS ORDERED: SOD FERRIC GLUC COMPLX/SUCROSE 250 MG in NA CHLORIDE 0.9% 100 ML IV ONE (16:00)
[2018-06-27] MEDS: ACETAMINOPHEN 500 MG TAB PO PRN (17:19)
--- NOTE | 2018-06-27 20:25 | P.PN ---
Date of Service: 06/27/18 Vital Signs Temp Pulse Resp BP Pulse Ox 97.8 F 76 18 139/75 92 06/27/18 16:00 06/27/18 16:00 06/27/18 16:00 06/27/18 16:00 06/27/18 16:00 Medications Acetaminophen (Tylenol -Extra Strength) 500 mg PO Q4HP PRN PRN Reason: [id number] Stop: 07/20/18 17:47 Last Admin: 06/27/18 17:19 Dose: 500 mg Albuterol Sulfate (Proventil 0.083% Neb Soln) 2.5 mg NEB [id number] PRN PRN Reason: SHORTNESS OF BREATH Stop: 07/20/18 20:01 Arformoterol Tartrate (Brovana) 15 mcg NEB BIDRESP [place] Stop: 07/20/18 20:01 Last Admin: 06/27/18 19:38 Dose: 15 mcg Aspirin (Aspirin Ec) 81 mg PO DAILY [place] Stop: 07/21/18 09:01 Last Admin: 06/27/18 08:58 Dose: 81 mg Atorvastatin Calcium (Lipitor) 10 mg PO BEDTIME [place] Stop: 07/20/18 21:01 Last Admin: 06/26/18 21:03 Dose: 10 mg Clopidogrel Bisulfate (Plavix) 75 mg PO DAILY [place] Stop: 07/21/18 09:01 Last Admin: 06/27/18 08:58 Dose: 75 mg Dextrose (Dextrose 50% Syringe) 12.5 gm IV PRN PRN; Protocol PRN Reason: HYPOGLYCEMIA Stop: 07/20/18 17:55 Divalproex Sodium (Depakote *Er*) 250 mg PO BID [place] Stop: 07/20/18 21:01 Last Admin: 06/27/18 08:58 Dose: 250 mg Enoxaparin Sodium (Lovenox 30 Mg Inj) 30 mg SQ DAILY [place] Stop: 07/20/18 18:31 Last Admin: 06/27/18 08:56 Dose: 30 mg Glucagon (Glucagen) 1 mg IM 1X PRN; Protocol PRN Reason: HYPOGLYCEMIA Stop: 07/20/18 17:55 Hydralazine HCl (Apresoline) 10 mg IV Q6HP PRN PRN Reason: HIGH BP Stop: 07/21/18 16:57 Hydralazine HCl (Apresoline) 25 mg PO DAILY [facility] Stop: 07/26/18 09:01 Last Admin: 06/27/18 08:58 Dose: 25 mg Insulin Glargine (Lantus) 27 units SQ BID [facility] Stop: 07/22/18 21:01 Last Admin: 06/27/18 08:56 Dose: 27 units Insulin Human Regular (Novolin -R) 0 unit SQ [facility]; Protocol Stop: 07/20/18 21:01 Last Admin: 06/27/18 17:19 Dose: 3 unit Ipratropium [place] (Atrovent Neb) 0.5 mg NEB [id number] PRN PRN Reason: SHORTNESS OF BREATH Stop: 07/20/18 20:01 Last Admin: 06/23/18 20:50 Dose: 0.5 mg Loperamide HCl (Imodium) 2 mg PO Q4H PRN PRN Reason: DIARRHEA Stop: 07/20/18 17:55 Last Admin: 06/23/18 11:50 Dose: 2 mg Montelukast Sodium (Singulair) 10 mg PO BEDTIME [facility] Stop: 07/20/18 21:01 Last Admin: 06/26/18 21:03 Dose: 10 mg Nicotine (Nicoderm) 21 mg TD DAILY [facility] Stop: 07/20/18 18:31 Last Admin: 06/27/18 08:56 Dose: 21 mg Ondansetron HCl (Zofran) 4 mg IV Q6HP PRN PRN Reason: NAUSEA / VOMITING Stop: 07/20/18 17:47 Prednisone (Deltasone) 10 mg PO BID [facility] Stop: 07/23/18 09:01 Last Admin: 06/27/18 08:57 Dose: 10 mg Pregabalin (Lyrica) 300 mg PO BID [facility] Stop: 07/20/18 21:01 Last Admin: 06/27/18 08:57 Dose: 300 mg Sertraline HCl (Zoloft) 100 mg PO DAILY [facility] Stop: 07/21/18 09:01 Last Admin: 06/27/18 08:57 Dose: 100 mg Sodium Chloride (Normal Saline Flush) 10 ml IV BID [facility] Stop: 07/20/18 21:01 Last Admin: 06/27/18 08:58 Dose: 10 ml Tiotropium [place] (Spiriva Handihaler) 1 sprays IH DAILY [facility] Stop: 07/21/18 09:01 Last Admin: 06/27/18 08:55 Dose: 1 spr Microbiology Results 06/20/18 15:30 Blood - Blood Aerobic Blood Culture - Final No growth in 5 days. 06/20/18 15:30 Blood - Blood Anaerobic Blood Culture - Final Assessment/ Plan: Nephrology. Doing well. CPS stable without SOB or CP. No acute events overnight. Vitals, medications, blood work and imaging reviewed in the chart. General: Alert, Oriented x3, Cooperative Neck: Supple Respiratory: Expiratory wheezes, Inspiratory wheezes Cardiovascular: No edema, Regular rate/rhythm Gastrointestinal: Soft and benign, Non-distended Musculoskeletal: No clubbing, No contractures Integumentary: No rashes, No cyanosis Neurological: Normal speech Distal LE ulcers. Cr 2.6 at admission. Blood work reviewed in the chart. Imagings Data: EXAM DESCRIPTION: RAD - Chest Single View - 06/20/2018 4:08 pm CLINICAL HISTORY: Shortness of breath, hypotension COMPARISON: June 19 TECHNIQUE: AP portable chest image was obtained 1550 hours . FINDINGS: Lung volumes are similar to comparison. Patient has baseline interstitial lung disease. Pleural and parenchymal opacification at the left base have not changed from June 19. Atelectasis changes are seen in the right lung field. Heart size is normal. Vasculature within normal limits. No pneumothorax is seen. No large pleural effusion identifiable. No gross bony abnormality seen. No acute aortic findings suspected. IMPRESSION: Chronic interstitial lung disease is present. Focal pleural and parenchymal opacification left base stable from prior study. Reason for Exam: acute renal failure, dehydration Report Status: Signed EXAM DESCRIPTION: US - Renal Ultrasound-Complete - 06/20/2018 6:20 pm CLINICAL HISTORY: acute renal failure, dehydration COMPARISON: RP EXAM COMPLETE dated 07/17/2014 FINDINGS: Both kidneys are normal in size, shape and echotexture. The right kidney measures 10.7 x 5.0 x 4.5 cm. No hydronephrosis, focal mass or perinephric fluid. The left kidney measures 10.3 x 5.5 x 5.0 cm. No hydronephrosis, focal mass or perinephric fluid. The urinary bladder is incompletely distended without gross abnormality seen. IMPRESSION: Unremarkable renal sonogram. Conclusions/Impression: A/ ANA in the setting of hypovolemia. Proteinuria. Syncope due to hypovolemia/ hypotension. HTN. Diastolic CHF, chronic. Iron Deficiency Anemia. DM II with CKD. COPD, stable. Distal LE Ulcers. P/ Continue current POC and Medications. Titrate insulin as needed. Wound care as ordered. Give IV iron. No NSAIDs. AM labs. Daily weight.
[2018-06-27] MEDS: MONTELUKAST 10 MG TAB PO SCH (21:22)
[2018-06-27] MEDS: ATORVASTATIN 10 MG TAB PO SCH (21:22)
[2018-06-28] MEDS: ACETAMINOPHEN 500 MG TAB PO PRN ×2 (04:47→22:37)
[2018-06-28] MEDS: INSULIN -REGULAR HUMAN 50 UNIT/0.5 ML ML SQ SCH ×4 (07:30→20:45)
[2018-06-28] MEDS: ARFORMOTEROL TARTRATE 15 MCG/2 ML VIAL.NEB NEB SCH ×2 (07:50→20:45)
[2018-06-28] MEDS: INSULIN GLARGINE 100 UNITS/ML SQ SCH ×2 (08:41→20:44)
[2018-06-28] MEDS: PREGABALIN 150 MG CAP PO SCH ×2 (08:42→20:43)
[2018-06-28] MEDS: ENOXAPARIN 30 MG/0.3 ML SQ SCH ×2 (08:42→09:00)
[2018-06-28] MEDS: NICOTINE 21 MG/PAT TD SCH (08:42)
[2018-06-28] MEDS: HYDRALAZINE HCL 25 MG TABLET PO SCH (08:43)
[2018-06-28] MEDS: SERTRALINE HCL 100 MG TAB PO SCH (08:43)
[2018-06-28] MEDS: CLOPIDOGREL 75 MG TABLET PO SCH (08:43)
[2018-06-28] MEDS: ASPIRIN EC 81 MG TAB PO SCH (08:43)
[2018-06-28] MEDS: predniSONE 10 MG TAB PO SCH ×2 (08:43→20:44)
[2018-06-28] MEDS: DIVALPROEX ER 250 MG TAB PO SCH ×2 (08:43→20:44)
[2018-06-28] MEDS: TIOTROPIUM 5 SPRAYS/INHALER IH SCH (08:45)
[2018-06-28] MEDS ORDERED: SOD FERRIC GLUC COMPLX/SUCROSE 125 MG in NA CHLORIDE 0.9% 100 ML IV ONE (09:00)
--- NOTE | 2018-06-28 11:49 | P.PN ---
Subjective Date of Service: 06/28/18 Primary Care Provider: Dr. Whalen; Pulmonary-Dr. Chau Chief Complaint: Syncope Patient seen and examined at bedside with RN. Chart reviewed. Case discussed with patient and family members at bedside. Currently awaiting placement pending insurance approval Review of Systems 10-point ROS is otherwise unremarkable Physical Examination - Vital Signs Temperature: 96.5 F Blood Pressure: 145/70 Pulse: 70 Respirations: 18 Pulse Ox (%): 96 - Physical Exam General: Alert, In no apparent distress HEENT: Atraumatic, PERRLA, EOMI Neck: Supple, JVD not distended Respiratory: Clear to auscultation bilaterally, Normal air movement Cardiovascular: Regular rate/rhythm, Normal S1 S2 Gastrointestinal: Normal bowel sounds, No tenderness Musculoskeletal: No tenderness Integumentary: No rashes Neurological: Normal speech, Normal tone, Normal affect Lymphatics: No axilla or inguinal lymphadenopathy - Studies Medications List Reviewed: Yes Assessment And Plan Discharge Plan: Group Home Plan to discharge in: 48 Hours - Code Status/Comfort Care Code Status Assessed: Yes Physician Review Additional Text: Plan: Syncope with noted hypotension likely from dehydration: Patient no longer having syncopal episodes. Doing well overall. head CT and MRI negative Chronic diastolic CHF: Patient doing well with fluid restriction. No need for Lasix at this time. Will monitor her with fluid restriction only. Severe COPD, oxygen-dependent: Will continue with oxygen. Will continue with her COPD medication. Will adjust steroid medication. Maintain sats above 88%. Diabetes mellitus type 2, insulin-dependent, uncontrolled-hyperglycemia: Will continue to adjust her insulin-Lantus for better control. Will provide sliding scale. Blood sugar better controlled. Will continue to adjust medication. Hypertension: Lisinopril has been discontinued. Patient now on hydralazine 25 mg 1 pill twice daily. Blood pressures remain stable. Will continue monitor and adjust appropriately. Hyperlipidemia: Will continue with her medication. Depression with anxiety: Will continue with her home medication-Depakote and Zoloft. Diabetic neuropathy with chronic pain: Will provide low-dose tramadol as needed for pain. Will continue with her Lyrica. Chronic diarrhea: Will provide Imodium. Recent stool study negative for C diff. Chronic ulcers to the feet bilateral monitored by a wound care: Will continue with wound care. PVD: Will continue with aspirin and Plavix. Will provide DVT prophylaxis. Former tobacco use: Will provide nicotine patch. Seasonal allergies: Will continue with Singulair. Chronic headaches: Will monitor closely. MRI of brain negative Critical Care: No
--- NOTE | 2018-06-28 19:56 | P.PN ---
Date of Service: 06/28/18 Vital Signs Temp Pulse Resp BP Pulse Ox 97.0 F 84 18 141/79 H 93 06/28/18 16:00 06/28/18 16:00 06/28/18 16:00 06/28/18 16:00 06/28/18 16:00 Medications Acetaminophen (Tylenol -Extra Strength) 500 mg PO Q4HP PRN PRN Reason: [id number] Stop: 07/20/18 17:47 Last Admin: 06/28/18 04:47 Dose: 500 mg Albuterol Sulfate (Proventil 0.083% Neb Soln) 2.5 mg NEB [id number] PRN PRN Reason: SHORTNESS OF BREATH Stop: 07/20/18 20:01 Arformoterol Tartrate (Brovana) 15 mcg NEB BIDRESP [place] Stop: 07/20/18 20:01 Last Admin: 06/28/18 07:50 Dose: 15 mcg Aspirin (Aspirin Ec) 81 mg PO DAILY [place] Stop: 07/21/18 09:01 Last Admin: 06/28/18 08:43 Dose: 81 mg Atorvastatin Calcium (Lipitor) 10 mg PO BEDTIME [place] Stop: 07/20/18 21:01 Last Admin: 06/27/18 21:22 Dose: 10 mg Clopidogrel Bisulfate (Plavix) 75 mg PO DAILY [place] Stop: 07/21/18 09:01 Last Admin: 06/28/18 08:43 Dose: 75 mg Dextrose (Dextrose 50% Syringe) 12.5 gm IV PRN PRN; Protocol PRN Reason: HYPOGLYCEMIA Stop: 07/20/18 17:55 Divalproex Sodium (Depakote *Er*) 250 mg PO BID [place] Stop: 07/20/18 21:01 Last Admin: 06/28/18 08:43 Dose: 250 mg Glucagon (Glucagen) 1 mg IM 1X PRN; Protocol PRN Reason: HYPOGLYCEMIA Stop: 07/20/18 17:55 Hydralazine HCl (Apresoline) 10 mg IV Q6HP PRN PRN Reason: HIGH BP Stop: 07/21/18 16:57 Hydralazine HCl (Apresoline) 25 mg PO DAILY [place] Stop: 07/26/18 09:01 Last Admin: 06/28/18 08:43 Dose: 25 mg Ferric Sodium Gluconate Complex 125 mg/ Sodium Chloride 110 mls @ 100 mls/hr IV ONCE ONE Stop: 06/29/18 09:05 Insulin Glargine (Lantus) 27 units SQ BID [facility] Stop: 07/22/18 21:01 Last Admin: 06/28/18 08:41 Dose: 27 units Insulin Human Regular (Novolin -R) 0 unit SQ ACHS [facility]; Protocol Stop: 07/20/18 21:01 Last Admin: 06/28/18 16:33 Dose: 7 unit Ipratropium [place] (Atrovent Neb) 0.5 mg NEB [id number] PRN PRN Reason: SHORTNESS OF BREATH Stop: 07/20/18 20:01 Last Admin: 06/23/18 20:50 Dose: 0.5 mg Loperamide HCl (Imodium) 2 mg PO Q4H PRN PRN Reason: DIARRHEA Stop: 07/20/18 17:55 Last Admin: 06/23/18 11:50 Dose: 2 mg Montelukast Sodium (Singulair) 10 mg PO BEDTIME [facility] Stop: 07/20/18 21:01 Last Admin: 06/27/18 21:22 Dose: 10 mg Nicotine (Nicoderm) 21 mg TD DAILY [facility] Stop: 07/20/18 18:31 Last Admin: 06/28/18 08:42 Dose: 21 mg Ondansetron HCl (Zofran) 4 mg IV Q6HP PRN PRN Reason: NAUSEA / VOMITING Stop: 07/20/18 17:47 Prednisone (Deltasone) 10 mg PO BID [facility] Stop: 07/23/18 09:01 Last Admin: 06/28/18 08:43 Dose: 10 mg Pregabalin (Lyrica) 300 mg PO BID [facility] Stop: 07/20/18 21:01 Last Admin: 06/28/18 08:42 Dose: 300 mg Sertraline HCl (Zoloft) 100 mg PO DAILY [facility] Stop: 07/21/18 09:01 Last Admin: 06/28/18 08:43 Dose: 100 mg Sodium Chloride (Normal Saline Flush) 10 ml IV BID [facility] Stop: 07/20/18 21:01 Last Admin: 06/28/18 08:44 Dose: 10 ml Tiotropium [place] (Spiriva Handihaler) 1 sprays IH DAILY [facility] Stop: 07/21/18 09:01 Last Admin: 06/28/18 08:45 Dose: 1 spr Microbiology Results 06/20/18 15:30 Blood - Blood Aerobic Blood Culture - Final No growth in 5 days. 06/20/18 15:30 Blood - Blood Anaerobic Blood Culture - Final Assessment/ Plan: Nephrology. Doing well. Feels better with IV iron. CPS stable without SOB or CP. No acute events overnight. Vitals, medications, blood work and imaging reviewed in the chart. General: Alert, Oriented x3, Cooperative Neck: Supple Respiratory: Expiratory wheezes, Inspiratory wheezes Cardiovascular: No edema, Regular rate/rhythm Gastrointestinal: Soft and benign, Non-distended Musculoskeletal: No clubbing, No contractures Integumentary: No rashes, No cyanosis Neurological: Normal speech Distal LE ulcers. Cr 2.6 at admission. Blood work reviewed in the chart. Imagings Data: EXAM DESCRIPTION: RAD - Chest Single View - 06/20/2018 4:08 pm CLINICAL HISTORY: Shortness of breath, hypotension COMPARISON: June 19 TECHNIQUE: AP portable chest image was obtained 1550 hours . FINDINGS: Lung volumes are similar to comparison. Patient has baseline interstitial lung disease. Pleural and parenchymal opacification at the left base have not changed from June 19. Atelectasis changes are seen in the right lung field. Heart size is normal. Vasculature within normal limits. No pneumothorax is seen. No large pleural effusion identifiable. No gross bony abnormality seen. No acute aortic findings suspected. IMPRESSION: Chronic interstitial lung disease is present. Focal pleural and parenchymal opacification left base stable from prior study. Reason for Exam: acute renal failure, dehydration Report Status: Signed EXAM DESCRIPTION: US - Renal Ultrasound-Complete - 06/20/2018 6:20 pm CLINICAL HISTORY: acute renal failure, dehydration COMPARISON: RP EXAM COMPLETE dated 07/17/2014 FINDINGS: Both kidneys are normal in size, shape and echotexture. The right kidney measures 10.7 x 5.0 x 4.5 cm. No hydronephrosis, focal mass or perinephric fluid. The left kidney measures 10.3 x 5.5 x 5.0 cm. No hydronephrosis, focal mass or perinephric fluid. The urinary bladder is incompletely distended without gross abnormality seen. IMPRESSION: Unremarkable renal sonogram. Conclusions/Impression: A/ ANA in the setting of hypovolemia. Proteinuria. Syncope due to hypovolemia/ hypotension. HTN. Diastolic CHF, chronic. Iron Deficiency Anemia. DM II with CKD. COPD, stable. Distal LE Ulcers. P/ Continue current POC and Medications. Titrate insulin as needed. Wound care as ordered. Give IV iron. No NSAIDs. AM labs. Daily weight. Awaiting placement.
[2018-06-28] MEDS: ATORVASTATIN 10 MG TAB PO SCH (20:44)
[2018-06-28] MEDS: MONTELUKAST 10 MG TAB PO SCH (20:44)
[2018-06-28] MEDS: IPRATROPIUM BROM 0.5MG/2.5ML NEB PRN (20:45)
[2018-06-29] MEDS: ACETAMINOPHEN 500 MG TAB PO PRN ×3 (05:09→20:21)
[2018-06-29] MEDS: INSULIN -REGULAR HUMAN 50 UNIT/0.5 ML ML SQ SCH ×4 (07:30→21:14)
[2018-06-29] MEDS: ARFORMOTEROL TARTRATE 15 MCG/2 ML VIAL.NEB NEB SCH ×2 (07:45→20:00)
[2018-06-29] MEDS: NICOTINE 21 MG/PAT TD SCH (07:49)
[2018-06-29] MEDS: PREGABALIN 150 MG CAP PO SCH ×2 (07:49→20:21)
[2018-06-29] MEDS: CLOPIDOGREL 75 MG TABLET PO SCH (07:50)
[2018-06-29] MEDS: HYDRALAZINE HCL 25 MG TABLET PO SCH (07:50)
[2018-06-29] MEDS: DIVALPROEX ER 250 MG TAB PO SCH ×2 (07:50→20:21)
[2018-06-29] MEDS: ASPIRIN EC 81 MG TAB PO SCH (07:50)
[2018-06-29] MEDS: SERTRALINE HCL 100 MG TAB PO SCH (07:50)
[2018-06-29] MEDS: predniSONE 10 MG TAB PO SCH ×2 (07:50→20:21)
[2018-06-29] MEDS: INSULIN GLARGINE 100 UNITS/ML SQ SCH ×2 (07:56→21:15)
[2018-06-29] MEDS: TIOTROPIUM 5 SPRAYS/INHALER IH SCH (07:57)
[2018-06-29] MEDS ORDERED: SOD FERRIC GLUC COMPLX/SUCROSE 125 MG in NA CHLORIDE 0.9% 100 ML IV ONE (08:00)
--- NOTE | 2018-06-29 15:15 | P.PN ---
Subjective Date of Service: 06/29/18 Primary Care Provider: Dr. Whalen; Pulmonary-Dr. Chau Chief Complaint: Syncope Patient seen and examined at bedside with RN. Chart reviewed. Case discussed with patient and family members at bedside. Currently awaiting placement pending insurance approval Review of Systems 10-point ROS is otherwise unremarkable Physical Examination - Vital Signs Temperature: 97.9 F Blood Pressure: 157/84 Pulse: 78 Respirations: 17 Pulse Ox (%): 96 - Physical Exam General: Alert, In no apparent distress HEENT: Atraumatic, PERRLA, EOMI Neck: Supple, JVD not distended Respiratory: Clear to auscultation bilaterally, Normal air movement Cardiovascular: Regular rate/rhythm, Normal S1 S2 Gastrointestinal: Normal bowel sounds, No tenderness Musculoskeletal: No tenderness Integumentary: No rashes Neurological: Normal speech, Normal tone, Normal affect Lymphatics: No axilla or inguinal lymphadenopathy - Studies Medications List Reviewed: Yes Assessment And Plan Discharge Plan: Residential Plan to discharge in: 48 Hours - Code Status/Comfort Care Code Status Assessed: Yes Physician Review Additional Text: Plan: Syncope with noted hypotension likely from dehydration: Patient no longer having syncopal episodes. Doing well overall. head CT and MRI negative S/p IV hydration Chronic diastolic CHF: Patient doing well with fluid restriction. No need for Lasix at this time. Will monitor her with fluid restriction only. Severe COPD, oxygen-dependent: Will continue with oxygen. Will continue with her COPD medication. Will adjust steroid medication. Maintain sats above 88%. Diabetes mellitus type 2, insulin-dependent, uncontrolled-hyperglycemia: Will continue to adjust her insulin-Lantus for better control. Will provide sliding scale. Blood sugar better controlled. Will continue to adjust medication. Hypertension: Lisinopril has been discontinued. Patient now on hydralazine 25 mg 1 pill twice daily. Blood pressures remain stable. Will continue monitor and adjust appropriately. Hyperlipidemia: Will continue with her medication. Depression with anxiety: Will continue with her home medication-Depakote and Zoloft. Diabetic neuropathy with chronic pain: Will provide low-dose tramadol as needed for pain. Will continue with her Lyrica. Chronic diarrhea: Will provide Imodium. Recent stool study negative for C diff. Chronic ulcers to the feet bilateral monitored by a wound care: Will continue with wound care. PVD: Will continue with aspirin and Plavix. Will provide DVT prophylaxis. Former tobacco use: Will provide nicotine patch. Seasonal allergies: Will continue with Singulair. Chronic headaches: Will monitor closely. MRI of brain negative DISPO: Currently awaiting placement at this time Critical Care: No
[2018-06-29] MEDS: ATORVASTATIN 10 MG TAB PO SCH (20:21)
[2018-06-29] MEDS: MONTELUKAST 10 MG TAB PO SCH (20:21)
[2018-06-30] MEDS: HYDROCODONE/APAP 10/325 TAB PO PRN ×2 (04:46→22:12)
[2018-06-30] MEDS: INSULIN -REGULAR HUMAN 50 UNIT/0.5 ML ML SQ SCH ×4 (07:30→21:00)
[2018-06-30] MEDS: ARFORMOTEROL TARTRATE 15 MCG/2 ML VIAL.NEB NEB SCH ×2 (07:37→20:59)
[2018-06-30] MEDS: TIOTROPIUM 5 SPRAYS/INHALER IH SCH (08:57)
[2018-06-30] MEDS: PREGABALIN 150 MG CAP PO SCH ×2 (08:58→21:10)
[2018-06-30] MEDS: CLOPIDOGREL 75 MG TABLET PO SCH (08:59)
[2018-06-30] MEDS: HYDRALAZINE HCL 25 MG TABLET PO SCH (08:59)
[2018-06-30] MEDS: DIVALPROEX ER 250 MG TAB PO SCH ×2 (08:59→21:10)
[2018-06-30] MEDS: ASPIRIN EC 81 MG TAB PO SCH (08:59)
[2018-06-30] MEDS: predniSONE 10 MG TAB PO SCH ×2 (08:59→21:10)
[2018-06-30] MEDS: NICOTINE 21 MG/PAT TD SCH (09:00)
[2018-06-30] MEDS: SERTRALINE HCL 100 MG TAB PO SCH (09:00)
[2018-06-30] MEDS: INSULIN GLARGINE 100 UNITS/ML SQ SCH ×2 (09:00→21:11)
--- NOTE | 2018-06-30 09:30 | P.PN ---
Subjective Date of Service: 06/30/18 Primary Care Provider: Dr. Whalen; Pulmonary-Dr. Chau Chief Complaint: Syncope Patient seen and examined at bedside with RN. Chart reviewed. Case discussed with patient and family members at bedside. Currently awaiting placement pending insurance approval Review of Systems 10-point ROS is otherwise unremarkable Physical Examination - Vital Signs Temperature: 97.5 F Blood Pressure: 137/60 Pulse: 72 Respirations: 18 Pulse Ox (%): 98 - Physical Exam General: Alert, In no apparent distress HEENT: Atraumatic, PERRLA, EOMI Neck: Supple, JVD not distended Respiratory: Clear to auscultation bilaterally, Normal air movement Cardiovascular: Regular rate/rhythm, Normal S1 S2 Gastrointestinal: Normal bowel sounds, No tenderness Musculoskeletal: No tenderness Integumentary: No rashes Neurological: Normal speech, Normal tone, Normal affect Lymphatics: No axilla or inguinal lymphadenopathy - Studies Medications List Reviewed: Yes Assessment And Plan Physician Review Additional Text: Plan: Syncope with noted hypotension likely from dehydration: Patient no longer having syncopal episodes. Doing well overall. head CT and MRI negative S/p IV hydration Chronic diastolic CHF: Patient doing well with fluid restriction. No need for Lasix at this time. Will monitor her with fluid restriction only. Severe COPD, oxygen-dependent: Will continue with oxygen. Will continue with her COPD medication. Will adjust steroid medication. Maintain sats above 88%. Diabetes mellitus type 2, insulin-dependent, uncontrolled-hyperglycemia: Will continue to adjust her insulin-Lantus for better control. Will provide sliding scale. Blood sugar better controlled. Will continue to adjust medication. Hypertension: Lisinopril has been discontinued. Patient now on hydralazine 25 mg 1 pill twice daily. Blood pressures remain stable. Will continue monitor and adjust appropriately. Hyperlipidemia: Will continue with her medication. Depression with anxiety: Will continue with her home medication-Depakote and Zoloft. Diabetic neuropathy with chronic pain: Will provide low-dose tramadol as needed for pain. Will continue with her Lyrica. Chronic diarrhea: Will provide Imodium. Recent stool study negative for C diff. Chronic ulcers to the feet bilateral monitored by a wound care: Will continue with wound care. PVD: Will continue with aspirin and Plavix. Will provide DVT prophylaxis. Former tobacco use: Will provide nicotine patch. Seasonal allergies: Will continue with Singulair. Chronic headaches: Will monitor closely. MRI of brain negative DISPO: Currently awaiting placement at this time
[2018-06-30] MEDS: ACETAMINOPHEN 500 MG TAB PO PRN (14:36)
[2018-06-30] MEDS: IPRATROPIUM BROM 0.5MG/2.5ML NEB PRN (20:59)
[2018-06-30] MEDS: ATORVASTATIN 10 MG TAB PO SCH (21:10)
[2018-06-30] MEDS: MONTELUKAST 10 MG TAB PO SCH (21:11)
[2018-07-01] MEDS: INSULIN -REGULAR HUMAN 50 UNIT/0.5 ML ML SQ SCH ×2 (07:30→11:30)
[2018-07-01] MEDS: ARFORMOTEROL TARTRATE 15 MCG/2 ML VIAL.NEB NEB SCH (08:41)
[2018-07-01] MEDS: TIOTROPIUM 5 SPRAYS/INHALER IH SCH (08:51)
[2018-07-01] MEDS: HYDROCODONE/APAP 10/325 TAB PO PRN ×2 (08:52→14:40)
[2018-07-01] MEDS: DIVALPROEX ER 250 MG TAB PO SCH (08:52)
[2018-07-01] MEDS: PREGABALIN 150 MG CAP PO SCH (08:52)
[2018-07-01] MEDS: INSULIN GLARGINE 100 UNITS/ML SQ SCH (08:53)
[2018-07-01] MEDS: ASPIRIN EC 81 MG TAB PO SCH (08:53)
[2018-07-01] MEDS: predniSONE 10 MG TAB PO SCH (08:53)
[2018-07-01] MEDS: SERTRALINE HCL 100 MG TAB PO SCH (08:53)
[2018-07-01] MEDS: CLOPIDOGREL 75 MG TABLET PO SCH (08:53)
[2018-07-01] MEDS: HYDRALAZINE HCL 25 MG TABLET PO SCH (08:53)
[2018-07-01] MEDS: NICOTINE 21 MG/PAT TD SCH (08:54)
--- NOTE | 2018-07-01 14:30 | P.PN ---
Subjective Date of Service: 07/01/18 Primary Care Provider: Dr. Whalen; Pulmonary-Dr. Chau Chief Complaint: Syncope Patient seen and examined at bedside with RN. Chart reviewed. Case discussed with patient and family members at bedside. The patient approved to go through alf at this time Review of Systems 10-point ROS is otherwise unremarkable Physical Examination - Vital Signs Temperature: 97.3 F Blood Pressure: 126/61 Pulse: 69 Respirations: 18 Pulse Ox (%): 97 - Physical Exam General: Alert, In no apparent distress HEENT: Atraumatic, PERRLA, EOMI Neck: Supple, JVD not distended Respiratory: Clear to auscultation bilaterally, Normal air movement Cardiovascular: Regular rate/rhythm, Normal S1 S2 Gastrointestinal: Normal bowel sounds, No tenderness Musculoskeletal: No tenderness Integumentary: No rashes Neurological: Normal speech, Normal tone, Normal affect Lymphatics: No axilla or inguinal lymphadenopathy - Studies Medications List Reviewed: Yes Assessment And Plan Discharge Plan: Snf Plan to discharge in: 24 Hours - Code Status/Comfort Care Code Status Assessed: Yes Physician Review Additional Text: Plan: Syncope with noted hypotension likely from dehydration: Patient no longer having syncopal episodes. Doing well overall. head CT and MRI negative S/p IV hydration Chronic diastolic CHF: Patient doing well with fluid restriction. No need for Lasix at this time. Will monitor her with fluid restriction only. Severe COPD, oxygen-dependent: Will continue with oxygen. Will continue with her COPD medication. Will adjust steroid medication. Maintain sats above 88%. Diabetes mellitus type 2, insulin-dependent, uncontrolled-hyperglycemia: Will continue to adjust her insulin-Lantus for better control. Will provide sliding scale. Blood sugar better controlled. Will continue to adjust medication. Hypertension: Lisinopril has been discontinued. Patient now on hydralazine 25 mg 1 pill twice daily. Blood pressures remain stable. Will continue monitor and adjust appropriately. Hyperlipidemia: Will continue with her medication. Depression with anxiety: Will continue with her home medication-Depakote and Zoloft. Diabetic neuropathy with chronic pain: Will provide low-dose tramadol as needed for pain. Will continue with her Lyrica. Chronic diarrhea: Will provide Imodium. Recent stool study negative for C diff. Chronic ulcers to the feet bilateral monitored by a wound care: Will continue with wound care. PVD: Will continue with aspirin and Plavix. Will provide DVT prophylaxis. Former tobacco use: Will provide nicotine patch. Seasonal allergies: Will continue with Singulair. Chronic headaches: Will monitor closely. MRI of brain negative DISPO: Patient being discharged to the alf today acceptance received form insurance at the alf Critical Care: No
[2018-07-02 14:00] VITALS: BP 126/61; TEMP 97.3
[2018-07-02 14:31] VITALS: O2SAT 97
== END 2018-07-01 16:32 | DRG 683 ==
LOC: ER 15:19 → ERHOLD 17:50 → 2ND 20:56
PROVIDERS: ADMIT Family Medicine; ATTEND Family Medicine
DX: N17.9 Acute kidney failure, unspecified (principal); J44.1 Chronic obstructive pulmonary disease with (acute) exacerbation; I13.0 Hypertensive heart and chronic kidney disease with heart failure and stage 1 through stage 4 chronic kidney disease, or unspecified chronic kidney disease; I50.32 Chronic diastolic (congestive) heart failure; E86.0 Dehydration; R55 Syncope and collapse; T50.1X5A Adverse effect of loop [high-ceiling] diuretics, initial encounter; T46.4X5A Adverse effect of angiotensin-converting-enzyme inhibitors, initial encounter; Y92.019 Unspecified place in single-family (private) house as the place of occurrence of the external cause; Z99.81 Dependence on supplemental oxygen; E11.65 Type 2 diabetes mellitus with hyperglycemia; Z79.4 Long term (current) use of insulin; E78.5 Hyperlipidemia, unspecified; F32.9 Major depressive disorder, single episode, unspecified; F41.9 Anxiety disorder, unspecified; E11.40 Type 2 diabetes mellitus with diabetic neuropathy, unspecified; K52.9 Noninfective gastroenteritis and colitis, unspecified; E11.51 Type 2 diabetes mellitus with diabetic peripheral angiopathy without gangrene; Z87.891 Personal history of nicotine dependence; Z88.5 Allergy status to narcotic agent; Z88.7 Allergy status to serum and vaccine; I95.9 Hypotension, unspecified; R09.02 Hypoxemia; I48.91 Unspecified atrial fibrillation; G43.909 Migraine, unspecified, not intractable, without status migrainosus; Z66 Do not resuscitate; E86.1 Hypovolemia; R80.9 Proteinuria, unspecified; L97.529 Non-pressure chronic ulcer of other part of left foot with unspecified severity; L97.519 Non-pressure chronic ulcer of other part of right foot with unspecified severity; E11.22 Type 2 diabetes mellitus with diabetic chronic kidney disease; N18.9 Chronic kidney disease, unspecified; E11.621 Type 2 diabetes mellitus with foot ulcer; D50.9 Iron deficiency anemia, unspecified
CPT/HCPCS: 11042; 36415; 51702; 70450; 70551; 71045; 71046; 76770; 80048; 80061; 80076; 80164; 81003; 81015; 82550; 82553; 82805; 82962; 83540; 83605; 83690; 83735; 83880; 84145; 84439; 84443; 84466; 84484; 84550; 85025; 85610; 87040; 87177; 87209; 87493; 93005; 93306; 94640; 96361; 96365; 96374; 96375; 97163; 99285; A6010; G0378; J1650; J1940; J2916; J2930; J7030; J7512; J7605

== ENCOUNTER 2018-08-11 15:59 | Emergency (ER) | payer OTHER ==
[2018-08-11 17:01] LABS: Absolute Lymphocytes (CBC) 1.8 K/uL (0.7-4.9); Absolute Monocytes 1.4 K/uL (0.1-1.3); Absolute Neutrophil 12.1 K/uL (1.8-8.0); Basophils % 0.8 % (0-1.3); Eosinophils % 0.3 % (0-4.4); Hematocrit 36.4 % (36.0-45.0); Lymphocytes % 11.7 % (15.3-44.8); MCH 27.1 pg (27.0-35.0); MCV 80.6 fL (80-100); MPV 9.2 fL (7.6-11.3); RBC Red Blood Cell Count 4.52 M/uL (3.86-4.86)
[2018-08-11] MEDS ORDERED: VANCOMYCIN 1 GM/250 ML BAG ONE (17:06)
[2018-08-11] MEDS ORDERED: NA CHLORIDE 0.9% 1,000 ML ONE (17:06)
--- NOTE | 2018-08-11 17:19 | RAD REPORT ---
EXAM DESCRIPTION: US - Extremity Venous Uni Ltd - 08/11/2018 5:13 pm CLINICAL HISTORY: PAIN Leg swelling and edema. COMPARISON: Upper Lower Extrem Art Multi dated 02/07/2018 FINDINGS: Left lower extremity venous system was interrogated with Doppler technique. Normal flow, c ompressibility and augmentation was noted. There is no DVT present. IMPRESSION: No evidence of left lower extremity deep venous thrombosis.
--- NOTE | 2018-08-11 17:21 | RAD REPORT ---
EXAM DESCRIPTION: RAD - Foot Left 3 View - 08/11/2018 5:07 pm CLINICAL HISTORY: PAIN COMPARISON: Foot Left 3 View dated 10/21/2017 FINDINGS: Mild metatarsus primus adductus with hallux valgus deformity seen. Soft tissue swelling is seen along the dorsum of the forefoot. Small soft tissue defect is seen along the plantar aspect of the forefoot. No radiographic finding of osteomyelitis. Prominent calcaneal spurs are present.
[2018-08-11 17:23] LABS: BUN Blood Urea Nitrogen 21 mg/dL (7-18); Bicarbonate 25 mmol/L (21-32); Potassium 4.2 mmol/L (3.5-5.1); Sodium Level 132 mmol/L (136-145)
[2018-08-11 17:25] LABS: Glucose Level 415 mg/dL (74-106)
[2018-08-11] MEDS ORDERED: INSULIN -REGULAR HUMAN 50 UNIT/0.5 ML ML ONE (17:45)
[2018-08-11] MEDS ORDERED: FENTANYL CITR 100 MCG/2 ML ONE (17:57)
--- NOTE | 2018-08-11 20:42 | ER ---
Nurse's Notes [facility] Name: Nakia Turcios Age: 62 yrs Sex: Female : 1955 Arrival Date: 08/11/2018 Time: 16:00 Bed 16 Private MD: Erasmo Jimenez Diagnosis: Diabetes mellitus due to underlying condition;Chronic obstructive pulmonary disease, unspecified;Cellulitis of left lower limb-dorsum of foot Presentation: 08/11 16:01 Presenting complaint: Patient states: Swelling to the left foot that started this aj1 morning. Denies SOB. Patient wears O2\\T\\3L at home. Transition of care: patient was not received from another setting of care. Onset of symptoms was August 11, 2018. Risk Assessment: Do you want to hurt yourself or someone else? Patient reports no desire to harm self or others. Initial Sepsis Screen: Does the patient meet any 2 criteria? No. Patient's initial sepsis screen is negative. Does the patient have a suspected source of infection? No. Patient's initial sepsis screen is negative. Care prior to arrival: None. 16:01 Method Of Arrival: Wheelchair aj1 16:01 Acuity: JESUSITA 3 aj1 Triage Assessment: 16:03 General: Appears in no apparent distress. uncomfortable, Behavior is calm, cooperative, aj1 appropriate for age. Pain: Complains of pain in left foot Pain currently is 9 out of 10 on a pain scale. Neuro: Level of Consciousness is awake, alert, obeys commands. Cardiovascular: Patient's skin is warm and dry. Respiratory: Airway is patent. Historical: - Allergies: 16:03 Codeine (Anaphylaxis); aj1 16:03 FLU VACCINE; aj1 - Home Meds: 16:03 Albuterol Inhl 4 times per day [Active]; alprazolam 1 mg Oral tab 3 times per day for aj1 Anxiety [Active]; aspirin 81 mg Oral chew 1 tab once daily [Active]; atorvastatin 20 mg Oral tab 1 tab nightly [Active]; bupropion HCl 150 mg Oral TbER 1 tab 2 times per day [Active]; Chantix 1 mg Oral tab 2 times per day [Active]; clopidogrel 75 mg Oral tab [Active]; Daliresp 500 mcg Oral tab 1 tab once daily [Active]; Depakene 250 mg Oral cap twice a day [Active]; diltiazem HCl 120 mg Oral CDER 1 cap once daily [Active]; divalproex 250 mg Oral Tb24 2 tabs once daily [Active]; hydromorphone 4 mg Oral tab 1 tab every 4 hours [Active]; Insulin: Novolin 70/30 130 units in am and 105 at night Sub-Q [Active]; lisinopril 10 mg Oral tab [Active]; Lyrica 300mg Oral 2 times per day [Active]; mirtazapine 30 mg Oral tab [Active]; montelukast 10 mg Oral tab once daily [Active]; pravastatin 40 mg Oral tab 1 tab once daily [Active]; prednisone 10 mg Oral tab once daily [Active]; Proventil Inhl four times a day [Active]; sertraline 100 mg Oral tab 1 tab once daily [Active]; - PMHx: 16:03 COPD; Diabetes - IDDM; Hypertension; neuropathy; CHF; aj1 - Immunization history:: Flu vaccine is not up to date. - Social history:: Smoking status: Patient/guardian denies using tobacco. - Ebola Screening: : Patient denies travel to an Ebola-affected area in the 21 days before illness onset. Screenin:48 Abuse screen: Denies threats or abuse. Nutritional screening: No deficits noted. em Tuberculosis screening: No symptoms or risk factors identified. Fall Risk None identified. Assessment: 16:48 General: Appears in no apparent distress. uncomfortable, Behavior is calm, cooperative, em Reports "fever off and on". Pain: Complains of pain in left foot Pain currently is 8 out of 10 on a pain scale. Neuro: Level of Consciousness is awake, alert, obeys commands, Oriented to person, place, time, situation. Cardiovascular: Capillary refill < 3 seconds Patient's skin is warm and dry. Respiratory: Airway is patent Respiratory effort is even, unlabored, Respiratory pattern is regular, symmetrical, pt wears O2 at home via NC at 3 LPM. GI: Abdomen is obese. : No signs and/or symptoms were reported regarding the genitourinary system. EENT: No signs and/or symptoms were reported regarding the EENT system. Derm: Skin is intact, Skin is pink, warm \\T\\ dry. Wound noted left foot redness, swelling, and warm to touch left foot. Musculoskeletal: Range of motion: intact in all extremities. 17:10 Reassessment: Patient appears in no apparent distress at this time. I agree with above iw assessment by Joce Chaney LVN. 17:47 Reassessment: Patient appears in no apparent distress at this time. Patient and/or em family updated on plan of care and expected duration. Pain level reassessed. Patient is alert, oriented x 3, equal unlabored respirations, skin warm/dry/pink. pt reports pain in left leg, provider notified, new medication orders received. 18:24 Reassessment: Patient appears in no apparent distress at this time. Patient and/or em family updated on plan of care and expected duration. Pain level reassessed. Patient is alert, oriented x 3, equal unlabored respirations, skin warm/dry/pink. 19:29 General: Appears in no apparent distress. Behavior is calm, cooperative. Pain: ea Complains of pain in left foot Pain currently is 5 out of 10 on a pain scale. Neuro: Level of Consciousness is awake, alert, obeys commands, Oriented to person, place, time, situation. Cardiovascular: Patient's skin is warm and dry. Respiratory: Airway is patent Respiratory effort is even, unlabored, Respiratory pattern is regular, symmetrical. GI: No signs and/or symptoms were reported involving the gastrointestinal system. Abdomen is obese. : No signs and/or symptoms were reported regarding the genitourinary system. EENT: No signs and/or symptoms were reported regarding the EENT system. Derm: left foot redness, swelling and warmth noted. Musculoskeletal: Circulation, motion, and sensation intact. 20:00 Reassessment: Patient and/or family updated on plan of care and expected duration. Pain ea level reassessed. Patient is alert, oriented x 3, equal unlabored respirations, skin warm/dry/pink. Vital Signs: 16:03 BP 129 / 62; Pulse 107; Resp 24; Temp 98.9; Pulse Ox 97% on 3 lpm NC; Weight 70.31 kg aj1 (R); Height 5 ft. 3 in. (160.02 cm) (R); Pain 9/10; 17:27 BP 113 / 87; Pulse 94; Resp 16; Pulse Ox 100% on NC; mt 18:24 BP 115 / 68; Pulse 96; Resp 18; Temp 98.6(O); Pulse Ox 100% on 3 lpm NC; Pain 8/10; em 19:31 BP 115 / 68; Pulse 90; Resp 18; Pulse Ox 99% ; ea 20:30 BP 120 / 70; Pulse 80; Resp 19; Temp 98; Pulse Ox 99% ; ea 16:03 Body Mass Index 27.46 (70.31 kg, 160.02 cm) aj1 ED Course: 16:00 Patient arrived in ED. rg4 16:00 Erasmo Jimenez MD is Private Physician. rg4 16:01 Triage completed. aj1 16:03 Arm band placed on Patient placed in an exam room. aj1 16:09 Chloe Davis FNP-C is PHCP. snw 16:09 Luis Angel Romero MD is Attending Physician. snw 16:09 Joce Chaney LVN is Primary Nurse. em 16:48 Patient has correct armband on for positive identification. Bed in low position. Call em light in reach. 16:50 Patient taken to ultrasound. via wheelchair. aa4 17:07 Foot Left 3 View XRAY In Process Unspecified. EDMS 17:12 Ultrasound completed. Patient tolerated well. Patient moved back from ultrasound. aa4 17:14 US Extremity Venous Unilateral Ltd In Process Unspecified. EDMS 17:30 Initial lab(s) drawn, by me, sent to lab. Inserted saline lock: 20 gauge in left em antecubital area, using aseptic technique. Blood collected. 20:40 Erasmo Jimenez MD is Referral Physician. snw 20:50 Repeat lab(s) drawn. by me, sent to lab. bb 21:05 No provider procedures requiring assistance completed. IV discontinued, intact, ea bleeding controlled, No redness/swelling at site. Pressure dressing applied. Administered Medications: 17:39 Drug: Insulin Regular Human 7 units {Co-Signature: em (Joce Chaney LVN).} Route: IVP; hj Site: left antecubital; 17:57 Follow up: Response: No adverse reaction em 17:44 Drug: NS 0.9% 1000 ml Route: IV; Rate: 75 ml/hr; Site: left antecubital; hj 17:44 Drug: vancoMYCIN 1 grams Route: IVPB; Infused Over: 2 hrs; Site: left antecubital; hj 18:23 Drug: fentaNYL (PF) 50 mcg Route: IVP; Site: left antecubital; iw 19:11 Follow up: Response: No adverse reaction; Pain is unchanged, physician notified em Point of Care Testing: Blood Glucose: 19:35 Blood Glucose: 322 mg/dL; ea 20:36 Blood Glucose: 289 mg/dL; cc3 Ranges: Outcome: 20:41 Discharge ordered by . snw 21:08 Discharged to home via wheelchair, with family. ea 21:08 Condition: improved 21:08 Discharge instructions given to patient, Instructed on discharge instructions, follow up and referral plans. medication usage, Demonstrated understanding of instructions, follow-up care, medications, Prescriptions given X 2. 21:10 Patient left the ED. ea Signatures: Dispatcher [employer] EDMS Rebeca Das, RN RN aj1 Chloe Davis, BODY AND FRAME MAN-C BODY AND FRAME MAN-Csnw Joce Chaney, LIGHT BULB TESTER LIGHT BULB TESTER em Kasia Perrin, RN Marivel Kyle RN ELSI Nereida [place] aa4 Jay Baig, RN Summer Hawkins Moriah mt Antunez, Elena, RN RN ea Cordel, Charlene cc3 Joce Chaney LIGHT BULB TESTER em Corrections: (The following items were deleted from the chart) 18:25 18:24 BP 115 / 68; Pulse 96bpm; Resp 18bpm; Pulse Ox 100% 3 lpm Nasal Cannula; Pain em 04/26; em
--- NOTE | 2018-08-11 20:42 | EDPHYS ---
Physician Documentation [facility] Name: Nakia Turcios Age: 62 yrs Sex: Female : 1955 Arrival Date: 08/11/2018 Time: 16:00 Bed 16 Private MD: Erasmo Jimenez ED Physician Luis Angel Romero HPI: 08/11 16:37 This 62 yrs old Female presents to ER via Wheelchair with complaints of Foot snw Pain. 16:37 The patient presents with pain, swelling, tenderness. The complaints affect the dorsum snw of left foot. Context: The problem was sustained at home, resulted from an unknown cause, the patient can partially bear weight. Onset: The symptoms/episode began/occurred suddenly, today. Associated signs and symptoms: Pertinent positives: swelling. Severity of symptoms: At their worst the symptoms were moderate. It is unknown whether or not the patient has had similar symptoms in the past. The patient has not recently seen a physician, the patient's primary care provider is Dr. Dr. Jimenez. Historical: - Allergies: 16:03 Codeine (Anaphylaxis); aj1 16:03 FLU VACCINE; aj1 - Home Meds: 16:03 Albuterol Inhl 4 times per day [Active]; alprazolam 1 mg Oral tab 3 times per day for aj1 Anxiety [Active]; aspirin 81 mg Oral chew 1 tab once daily [Active]; atorvastatin 20 mg Oral tab 1 tab nightly [Active]; bupropion HCl 150 mg Oral TbER 1 tab 2 times per day [Active]; Chantix 1 mg Oral tab 2 times per day [Active]; clopidogrel 75 mg Oral tab [Active]; Daliresp 500 mcg Oral tab 1 tab once daily [Active]; Depakene 250 mg Oral cap twice a day [Active]; diltiazem HCl 120 mg Oral CDER 1 cap once daily [Active]; divalproex 250 mg Oral Tb24 2 tabs once daily [Active]; hydromorphone 4 mg Oral tab 1 tab every 4 hours [Active]; Insulin: Novolin 70/30 130 units in am and 105 at night Sub-Q [Active]; lisinopril 10 mg Oral tab [Active]; Lyrica 300mg Oral 2 times per day [Active]; mirtazapine 30 mg Oral tab [Active]; montelukast 10 mg Oral tab once daily [Active]; pravastatin 40 mg Oral tab 1 tab once daily [Active]; prednisone 10 mg Oral tab once daily [Active]; Proventil Inhl four times a day [Active]; sertraline 100 mg Oral tab 1 tab once daily [Active]; - PMHx: 16:03 COPD; Diabetes - IDDM; Hypertension; neuropathy; CHF; aj1 - Immunization history:: Flu vaccine is not up to date. - Social history:: Smoking status: Patient/guardian denies using tobacco. - Ebola Screening: : Patient denies travel to an Ebola-affected area in the 21 days before illness onset. ROS: 16:35 Constitutional: Negative for fever, chills, and weight loss, Eyes: Negative for injury, snw pain, redness, and discharge, ENT: Negative for injury, pain, and discharge, Neck: Negative for injury, pain, and swelling, Cardiovascular: Negative for chest pain, palpitations, and edema, Respiratory: Negative for shortness of breath, cough, wheezing, and pleuritic chest pain, Abdomen/GI: Negative for abdominal pain, nausea, vomiting, diarrhea, and constipation, Back: Negative for injury and pain, : Negative for injury, bleeding, discharge, and swelling, Neuro: Negative for headache, weakness, numbness, tingling, and seizure, Psych: Negative for depression, anxiety, suicide ideation, homicidal ideation, and hallucinations. 16:35 MS/extremity: Positive for pain, swelling, of the left leg. 16:35 Skin: Positive for erythema, swelling. Exam: 16:21 Head/Face: Normocephalic, atraumatic. Eyes: Pupils equal round and reactive to light, snw extra-ocular motions intact. Lids and lashes normal. Conjunctiva and sclera are non-icteric and not injected. Cornea within normal limits. Periorbital areas with no swelling, redness, or edema. ENT: Nares patent. No nasal discharge, no septal abnormalities noted. Tympanic membranes are normal and external auditory canals are clear. Oropharynx with no redness, swelling, or masses, exudates, or evidence of obstruction, uvula midline. Mucous membranes moist. Neck: Trachea midline, no thyromegaly or masses palpated, and no cervical lymphadenopathy. Supple, full range of motion without nuchal rigidity, or vertebral point tenderness. No Meningismus. Chest/axilla: Normal chest wall appearance and motion. Nontender with no deformity. No lesions are appreciated. Cardiovascular: Regular rate and rhythm with a normal S1 and S2. No gallops, murmurs, or rubs. Normal PMI, no JVD. No pulse deficits. 16:21 Abdomen/GI: Soft, non-tender, with normal bowel sounds. No distension or tympany. No guarding or rebound. No evidence of tenderness throughout. Back: No spinal tenderness. No costovertebral tenderness. Full range of motion. Skin: Warm, dry with normal turgor. Normal color with no rashes, no lesions, + erythema to left dorsal foot with edema. MS/ Extremity: Pulses equal, no cyanosis. Neurovascular intact. Full, normal range of motion. Neuro: Awake and alert, GCS 15, oriented to person, place, time, and situation. Cranial nerves II-XII grossly intact. Motor strength 5/5 in all extremities. Sensory grossly intact. Cerebellar exam normal. Normal gait. 16:21 Constitutional: The patient appears awake, uncomfortable. 16:21 Respiratory: the patient does not display signs of respiratory distress, Respirations: shallow respirations, tachypnea, Breath sounds: wheezing: expiratory is heard diffusely. Vital Signs: 16:03 BP 129 / 62; Pulse 107; Resp 24; Temp 98.9; Pulse Ox 97% on 3 lpm NC; Weight 70.31 kg aj1 (R); Height 5 ft. 3 in. (160.02 cm) (R); Pain 9/10; 17:27 BP 113 / 87; Pulse 94; Resp 16; Pulse Ox 100% on NC; mt 18:24 BP 115 / 68; Pulse 96; Resp 18; Temp 98.6(O); Pulse Ox 100% on 3 lpm NC; Pain 8/10; em 19:31 BP 115 / 68; Pulse 90; Resp 18; Pulse Ox 99% ; ea 20:30 BP 120 / 70; Pulse 80; Resp 19; Temp 98; Pulse Ox 99% ; ea 16:03 Body Mass Index 27.46 (70.31 kg, 160.02 cm) aj1 MDM: 16:09 Patient medically screened. snw 20:48 Data reviewed: vital signs, nurses notes. Data interpreted: Pulse oximetry: on room air snw is 99 %. Interpretation: normal. Counseling: I had a detailed discussion with the patient and/or guardian regarding: the historical points, exam findings, and any diagnostic results supporting the discharge/admit diagnosis, lab results, radiology results, the need for outpatient follow up, for definitive care, to return to the emergency department if symptoms worsen or persist or if there are any questions or concerns that arise at home. Special discussion: I discussed in detail with the patient the higher chance of wound infection based on his presenting history. Based on the history and exam findings, there is no indication for further emergent testing or inpatient evaluation. I discussed with the patient/guardian the need to see the primary care provider for further evaluation of the symptoms. 08/11 16:17 Order name: Basic Metabolic Panel; Complete Time: 17:26 snw 08/11 16:17 Order name: CBC with Diff; Complete Time: 17:06 snw 08/11 16:17 Order name: Blood Culture Adult (2) snw 08/11 16:17 Order name: Acetone, Serum; Complete Time: 17:26 snw 08/11 16:17 Order name: Lactate; Complete Time: 18:05 snw 08/11 16:17 Order name: Procalcitonin; Complete Time: 17:34 snw 08/11 16:17 Order name: IV Saline Lock; Complete Time: 17:38 snw 08/11 16:17 Order name: Foot Left 3 View XRAY; Complete Time: 17:25 snw 08/11 16:17 Order name: US Extremity Venous Unilateral Ltd; Complete Time: 17:25 snw 08/11 16:17 Order name: Labs collected and sent; Complete Time: 17:38 snw 08/11 20:09 Order name: FSBS; Complete Time: 20:36 snw Administered Medications: 17:39 Drug: Insulin Regular Human 7 units {Co-Signature: em (Joce Chaney LVN).} Route: IVP; hj Site: left antecubital; 17:57 Follow up: Response: No adverse reaction em 17:44 Drug: NS 0.9% 1000 ml Route: IV; Rate: 75 ml/hr; Site: left antecubital; hj 17:44 Drug: vancoMYCIN 1 grams Route: IVPB; Infused Over: 2 hrs; Site: left antecubital; hj 18:23 Drug: fentaNYL (PF) 50 mcg Route: IVP; Site: left antecubital; iw 19:11 Follow up: Response: No adverse reaction; Pain is unchanged, physician notified em Point of Care Testing: Blood Glucose: 19:35 Blood Glucose: 322 mg/dL; ea 20:36 Blood Glucose: 289 mg/dL; cc3 Ranges: Critical Glucose Levels:Adult <50 mg/dl or >400 mg/dl <40 mg/dl or >180 mg/dl Disposition: 08/12 08:28 Co-signature as Attending Physician, Luis Angel Romero MD I agree with the assessment and [facility] plan of care. Disposition: 08/11/18 20:41 Discharged to Home. Impression: Diabetes mellitus due to underlying condition, Chronic obstructive pulmonary disease, unspecified, Cellulitis of left lower limb - dorsum of foot. - Condition is Stable. - Discharge Instructions: Cellulitis, Adult, Chronic Obstructive Pulmonary Disease, Diabetes and Foot Care, Diabetes and Sick Day Management, Heat Therapy, Type 2 Diabetes Mellitus, Self Care, Adult. - Prescriptions for Flagyl 500 mg Oral Tablet - take 1 tablet by ORAL route every 8 hours for 10 days; 30 tablet. Doxycycline Hyclate 100 mg Oral Tablet - take 1 tablet by ORAL route every 12 hours; 20 tablet. - Medication Reconciliation Form, Thank You Letter, Antibiotic Education, Prescription Opioid Use form. - Follow up: Erasmo Jimenez MD; When: 1 - 2 days; Reason: Recheck today's complaints, Continuance of care, Re-evaluation by your physician. Follow up: Emergency Department; When: As needed; Reason: Worsening of condition. Signatures: Dispatcher [employer] [facility] Rebeca Das RN RN aj1 Anderson, Corey, MD MD cha Therrien, Shelly, BUSINESS SUPERVISOR-C BUSINESS SUPERVISOR-Csnw Joce Chaney, PREDICTIVE MAINTENANCE TECHNICIAN PREDICTIVE MAINTENANCE TECHNICIAN em Marivel Bashir RN RN iw Joaquin, Henry RN Cinthya Reagan RN RN ea Edgar Munoz PREDICTIVE MAINTENANCE TECHNICIAN em Corrections: (The following items were deleted from the chart) 08/11 21:05 20:39 LACTATE+C.LAB.BRZ ordered. [facility] 21:10 20:41 08/11/2018 20:41 Discharged to Home. Impression: Diabetes mellitus due to ea underlying condition; Chronic obstructive pulmonary disease, unspecified; Cellulitis of left lower limb - dorsum of foot. Condition is Stable. Forms are Medication Reconciliation Form, Thank You Letter, Antibiotic Education, Prescription Opioid Use. Follow up: Erasmo Jimenez; When: 1 - 2 days; Reason: Recheck today's complaints, Continuance of care, Re-evaluation by your physician. Follow up: Emergency Department; When: As needed; Reason: Worsening of condition. snw
[2018-08-11 22:05] VITALS: O2SAT 99
[2018-08-11 22:07] VITALS: BP 120/70; TEMP 98
== END 2018-08-11 21:10 | disposition home or self-care (01) ==
LOC: ER 15:59
DX: L03.116 Cellulitis of left lower limb (principal); E11.65 Type 2 diabetes mellitus with hyperglycemia; J44.9 Chronic obstructive pulmonary disease, unspecified; M20.12 Hallux valgus (acquired), left foot; M79.9 Soft tissue disorder, unspecified; M77.32 Calcaneal spur, left foot; I11.0 Hypertensive heart disease with heart failure; I50.9 Heart failure, unspecified; E11.40 Type 2 diabetes mellitus with diabetic neuropathy, unspecified; Z79.4 Long term (current) use of insulin; Z79.899 Other long term (current) drug therapy; Z79.82 Long term (current) use of aspirin
CPT/HCPCS: 36415; 73630; 80048; 82010; 82962 ×2; 83605 ×2; 84145; 85025; 87040 ×2; 93971; 96374; 96375; 99284; J3010; J3370; J7030

== ENCOUNTER 2018-10-18 15:18 | Emergency (ER) | payer OTHER ==
[2018-10-18] MEDS ORDERED: predniSONE 20 MG TAB ONE (15:57)
[2018-10-18] MEDS ORDERED: ALBUTEROL 2.5 MG/3 ML NEB SOL ONE ×2 (15:57→19:52)
[2018-10-18] MEDS ORDERED: IPRATROPIUM BROM 0.5MG/2.5ML ONE (15:57)
--- NOTE | 2018-10-18 16:01 | RAD REPORT ---
EXAM DESCRIPTION: RAD - Chest Single View - 10/18/2018 3:55 pm CLINICAL HISTORY: SOB Chest pain. COMPARISON: Chest Pa And Lat (2 Views) dated 06/21/2018; Chest Single View dated 06/20/2018; Chest Pa And Lat (2 Views) dated 06/19/2018; Chest Single View dated 06/18/2018 FINDINGS: Portable technique limits examination quality. Ill-defined opacity is present with haziness in the left lung base likely representing infiltrate/ pn eum[place]. The right lung is clear. The heart is normal in size. No displaced fractures.Aortic atherosc lerosis. IMPRESSION: Developing left base pneumonia.
[2018-10-18 16:33] LABS: Absolute Lymphocytes (CBC) 2.8 K/uL (0.7-4.9); Absolute Monocytes 0.4 K/uL (0.1-1.3); Absolute Neutrophil 6.1 K/uL (1.8-8.0); Basophils % 1.1 % (0-1.3); Eosinophils % 1.8 % (0-4.4); Hematocrit 37.7 % (36.0-45.0); Lymphocytes % 28.8 % (15.3-44.8); MPV 8.7 fL (7.6-11.3); Monocytes % 4.2 % (3.3-12.3); Protime INR 1.02; RBC Red Blood Cell Count 4.76 M/uL (3.86-4.86)
[2018-10-18] MEDS ORDERED: CEFTRIAXONE/SWI 1gm 1 GM/10 ML SYR ONE (16:38)
[2018-10-18] MEDS ORDERED: AZITHROMYCIN 500 MG/250 ML BAG ONE (16:39)
[2018-10-18 16:53] LABS: ALT/SGPT 13 U/L (12-78); AST/SGOT 5 U/L (15-37); Albumin 3.2 g/dL (3.4-5.0); Alkaline Phosphatase 103 U/L (45-117); BUN Blood Urea Nitrogen 26 mg/dL (7-18); Bicarbonate 26 mmol/L (21-32); Bilirubin Direct < 0.1 mg/dL (0-0.2); Bilirubin Total 0.2 mg/dL (0.2-1.0); Glucose Level 295 mg/dL (74-106); Magnesium 1.6 mg/dL (1.8-2.4); NT PRO-BNP 124 pg/mL (<125); Potassium 4.6 mmol/L (3.5-5.1); Sodium Level 138 mmol/L (136-145); Troponin (Emerg Dept Use Only) < 0.02 ng/mL (0.0-0.045)
--- NOTE | 2018-10-18 17:00 | EKG ---
Test Date: 2018-10-18 Test Time: 16:24:25 Canopy Stringer: RAJNI MEASUREMENT RESULTS: Intervals: Rate: 86 MD: 124 QRSD: 134 QT: 390 QTc: 466 Dunning: P: 65 MD: 124 QRS: 79 T: 66 INTERPRETIVE STATEMENTS: Normal sinus rhythm Right bundle branch block Abnormal ECG Compared to ECG 06/21/2018 19:30:28 No significant changes Electronically Signed On 10-18-18 16:59:42 TECHNICIAN [employer]IC[employer]UCTOR DEVELOPMENT by Fransisco Khan
[2018-10-18] MEDS ORDERED: MAGNESIUM SULFATE 1 gm IVPB 1 GM/100 ML BAG IV ONE (18:05)
--- NOTE | 2018-10-18 19:57 | ER ---
Nurse's Notes [facility] Name: Nakia Turcios Age: 62 yrs Sex: Female : 1955 Arrival Date: 10/18/2018 Time: 15:24 Bed 23 Private MD: Diagnosis: Pneumonia, unspecified organism Presentation: 10/18 15:25 Presenting complaint: EMS states: pt c/o shortness of breath, was seen by PCP two days tl3 ago and placed on Zithromax, has just been feeling worse, weak unable to ambulate due to SOB. Transition of care: patient was not received from another setting of care. Onset of symptoms was September 2018. Risk Assessment: Do you want to hurt yourself or someone else? Patient reports no desire to harm self or others. Initial Sepsis Screen: Does the patient meet any 2 criteria? No. Patient's initial sepsis screen is negative. Does the patient have a suspected source of infection? Yes: Productive cough/pneumonia. Care prior to arrival: Medication(s) given:. 15:25 Method Of Arrival: EMS: [facility] tl3 15:25 Acuity: JESUSITA 3 tl3 Triage Assessment: 15:40 General: Appears distressed, uncomfortable, well developed, well nourished, Behavior is tl3 cooperative, appropriate for age. Pain: Complains of pain in chest Pain began 2-3 days ago. Aggravated by cough. EENT: No signs and/or symptoms were reported regarding the EENT system. Neuro: Level of Consciousness is awake, alert, obeys commands, Oriented to person, place, time, situation, Appropriate for age. Cardiovascular: Patient's skin is warm and dry. Respiratory: Reports shortness of breath at rest cough that is Onset: The symptoms/episode began/occurred the patient has moderate shortness of breath. GI: No signs and/or symptoms were reported involving the gastrointestinal system. : No signs and/or symptoms were reported regarding the genitourinary system. Derm: No signs and/or symptoms reported regarding the dermatologic system. Musculoskeletal: No signs and/or symptoms reported regarding the musculoskeletal system. Historical: - Allergies: 15:40 Codeine (Anaphylaxis); tl3 15:40 FLU VACCINE; tl3 - Home Meds: 15:40 alprazolam 1 mg Oral tab 3 times per day for Anxiety [Active]; Albuterol Inhl 4 times tl3 per day [Active]; aspirin 81 mg Oral chew 1 tab once daily [Active]; atorvastatin 20 mg Oral tab 1 tab nightly [Active]; bupropion HCl 150 mg Oral TbER 1 tab 2 times per day [Active]; clopidogrel 75 mg Oral tab [Active]; sertraline 100 mg Oral tab 1 tab once daily [Active]; lisinopril 10 mg Oral tab 1 tab once daily [Active]; Lyrica 300mg Oral 2 times per day [Active]; montelukast 10 mg Oral tab once daily [Active]; divalproex 250 mg Oral Tb24 2 tabs once daily [Active]; pravastatin 40 mg Oral tab 1 tab once daily [Active]; Daliresp 500 mcg Oral tab 1 tab once daily [Active]; OMEGA-3 daily [Active]; Zithromax 250 mg Oral tab 1 tab once daily [Active]; Tessalon Perles 100 mg Oral cap 2 caps 3 times per day for Cough [Active]; Insulin: Novolin 70/30 130 units in am and 105 at night Sub-Q [Active]; - PMHx: 15:40 CHF; COPD; Diabetes - IDDM; Hypertension; neuropathy; tl3 - Immunization history:: Adult Immunizations up to date. - Social history:: Smoking status: Patient/guardian denies using tobacco, but has a distant history of tobacco abuse. - Ebola Screening: : No symptoms or risks identified at this time. Screenin:56 Abuse screen: Denies threats or abuse. Nutritional screening: No deficits noted. tl3 Tuberculosis screening: No symptoms or risk factors identified. Fall Risk None identified. 15:56 Fall Risk Secondary diagnosis (15 points) SOB making pt feel weak. tl3 Assessment: 15:56 Reassessment: No changes from previously documented assessment. Cardiovascular: Rhythm tl3 is regular. Respiratory: Airway is patent Respiratory effort is even, labored, Respiratory pattern is symmetrical, Breath sounds are coarse bilaterally. Breath sounds with wheezes bilaterally. GI: No signs and/or symptoms were reported involving the gastrointestinal system. : No signs and/or symptoms were reported regarding the genitourinary system. EENT: No signs and/or symptoms were reported regarding the EENT system. Derm: No signs and/or symptoms reported regarding the dermatologic system. 16:20 Reassessment: No changes from previously documented assessment. Patient and/or family tl3 updated on plan of care and expected duration. Pain level reassessed. Patient is alert, oriented x 3, equal unlabored respirations, skin warm/dry/pink. pt had severe coughing event right after neb started, coughed up large amount of mucus. 16:48 Derm: Decubitus located on left foot, dressed being managed by Dr Peterson for the last tl3 year. 18:22 Reassessment: No changes from previously documented assessment. Patient and/or family tl3 updated on plan of care and expected duration. Pain level reassessed. Patient is alert, oriented x 3, equal unlabored respirations, skin warm/dry/pink. pt continues to have frequent coughing fits that bring up thick mucus. 19:27 Reassessment: No changes from previously documented assessment. Patient and/or family tl3 updated on plan of care and expected duration. Pain level reassessed. Patient is alert, oriented x 3, equal unlabored respirations, skin warm/dry/pink. awaiting decision for admit. 19:46 Reassessment: assisted pt up to bedside commode, then got recliner for her to sit up tl3 in. pt states that she is still feeling weak. Vital Signs: 15:40 BP 118 / 58; Pulse 84; Resp 20; Pulse Ox 94% on 2 lpm NC; Weight 72.57 kg; Height 5 ft. tl3 3 in. (160.02 cm); 16:20 BP 120 / 72; Pulse 86; Resp 20; Pulse Ox 100% on Nebulizer Mask; tl3 17:47 Temp 99.6(O); tl3 18:22 BP 109 / 52; Pulse 84; Resp 18; Pulse Ox 89% on 3 lpm NC; tl3 19:27 BP 120 / 40; Pulse 85; Resp 18; Pulse Ox 96% on 3 lpm NC; tl3 15:40 Body Mass Index 28.34 (72.57 kg, 160.02 cm) tl3 ED Course: 15:24 Patient arrived in ED. tl3 15:26 Parag Vasquez NP is PHCP. pm1 15:26 Phillip Hurtado MD is Attending Physician. pm1 15:27 Triage completed. tl3 15:55 XRAY Chest (1 view) In Process Unspecified. EDMS 15:56 Arm band placed on right wrist. tl3 15:56 Patient has correct armband on for positive identification. Bed in low position. Call tl3 light in reach. Side rails up X2. ward helper on. Pulse ox on. NIBP on. Door closed. Lights dimmed. Warm blanket given. 15:56 No provider procedures requiring assistance completed. Maintain EMS IV. Dressing tl3 intact. Good blood return noted. Site clean \\T\\ dry. Gauge \\T\\ site: 20 g RAC. IV with fluids infusing freely. 16:20 Funmilayo Dorsey, RN is Primary Nurse. tl3 19:26 NT PRO-BNP Sent. tl3 20:40 IV discontinued, intact, bleeding controlled, No redness/swelling at site. Pressure tl3 dressing applied. Administered Medications: 15:55 Drug: Albuterol - atroVENT (3:1) (2.5 mg - 0.5 mg) 3 ml Route: Nebulizer; tl3 18:21 Follow up: Response: No adverse reaction tl3 16:26 Drug: predniSONE 60 mg Route: PO; tl3 18:21 Follow up: Response: No adverse reaction tl3 16:47 Drug: Rocephin 1 grams Route: IV; Rate: calculated rate; Site: right antecubital; tl3 Delivery: Primary tubing; 18:20 Follow up: IV Status: Completed infusion; IV Intake: 20ml tl3 16:47 Drug: Zithromax 500 mg Route: IVPB; Infused Over: 1 hrs; Site: right antecubital; tl3 Delivery: Primary tubing; 18:20 Follow up: IV Status: Completed infusion; IV Intake: 250ml tl3 18:24 Drug: Magnesium Sulfate 1 grams Route: IVPB; Infused Over: 1 hrs; Site: right tl3 antecubital; Delivery: Primary tubing; 19:30 Follow up: IV Status: Completed infusion; IV Intake: 100ml tl3 19:46 Drug: Albuterol 5 mg Route: Inhalation; tl3 20:42 Follow up: Response: No adverse reaction tl3 Intake: 18:20 IV: 250ml; Total: 250ml. tl3 18:20 IV: 20ml; Total: 270ml. tl3 19:30 IV: 100ml; Total: 370ml. tl3 Outcome: 19:57 Discharge ordered by . pm1 20:40 Discharged to home via wheelchair, assisted with getting pt into van to go home tl3 20:40 Condition: stable 20:40 Discharge instructions given to patient, family, Instructed on discharge instructions, follow up and referral plans. medication usage, Demonstrated understanding of instructions, follow-up care, medications, Prescriptions given X 3. 20:43 Patient left the ED. tl3 Addendum: 10/22/2018 13:24 Addendum: Culture Results: Positive blood culture. Phone call Attempt #1 at [phone], left m s voicemail. 14:34 Addendum: Culture Results: Prescription called-in to pharmacy of choice. to [facility] in [place], [place] per pt's request, called in Cipro 500mg PO BID x 10 days per Levi Hercules PA and pt instructed to continue Augmentin per PA, pt verbalized understanding. Pt also instructed to follow-up with PCP, pt states "I will follow-up with Dr. Jimenez". Signatures: Dispatcher [employer] Caren Smith ms, Audri, RN RN aa5 Parag Vasquez, ANA LUISA [employer]ING [employer] B[employer]ER pm1 Funmilayo Dorsey RN RN tl3
--- NOTE | 2018-10-18 19:58 | EDPHYS ---
Physician Documentation [facility] Name: Nakia Turcios Age: 62 yrs Sex: Female : 1955 Arrival Date: 10/18/2018 Time: 15:24 Bed 23 Private MD: ED Physician Phillip Hurtado HPI: 10/18 16:00 This 62 yrs old Female presents to ER via EMS with complaints of Shortness Of pm1 Breath. 16:00 The patient has shortness of breath at rest. Onset: The symptoms/episode began/occurred pm1 5 day(s) ago. Duration: The symptoms are continuous, and are steadily getting worse. The patient's shortness of breath is aggravated by exertion, is alleviated by nothing. Associated signs and symptoms: Pertinent positives: productive cough, subjective fever and chills, Pertinent negatives: chest pain, nausea, vomiting. Severity of symptoms: in the emergency department the symptoms are worse Pain is currently a 0 / 10. The patient has experienced similar episodes in the past, several times. The patient has not recently seen a physician, Called her PCP, Dr. Jimenez two days ago with complaints of sinusitis. Unable to be squeezed into an office visit so given a prescription for azithormycin. Historical: - Allergies: 15:40 Codeine (Anaphylaxis); tl3 15:40 FLU VACCINE; tl3 - Home Meds: 15:40 alprazolam 1 mg Oral tab 3 times per day for Anxiety [Active]; Albuterol Inhl 4 times tl3 per day [Active]; aspirin 81 mg Oral chew 1 tab once daily [Active]; atorvastatin 20 mg Oral tab 1 tab nightly [Active]; bupropion HCl 150 mg Oral TbER 1 tab 2 times per day [Active]; clopidogrel 75 mg Oral tab [Active]; sertraline 100 mg Oral tab 1 tab once daily [Active]; lisinopril 10 mg Oral tab 1 tab once daily [Active]; Lyrica 300mg Oral 2 times per day [Active]; montelukast 10 mg Oral tab once daily [Active]; divalproex 250 mg Oral Tb24 2 tabs once daily [Active]; pravastatin 40 mg Oral tab 1 tab once daily [Active]; Daliresp 500 mcg Oral tab 1 tab once daily [Active]; OMEGA-3 daily [Active]; Zithromax 250 mg Oral tab 1 tab once daily [Active]; Tessalon Perles 100 mg Oral cap 2 caps 3 times per day for Cough [Active]; Insulin: Novolin 70/30 130 units in am and 105 at night Sub-Q [Active]; - PMHx: 15:40 CHF; COPD; Diabetes - IDDM; Hypertension; neuropathy; tl3 - Immunization history:: Adult Immunizations up to date. - Social history:: Smoking status: Patient/guardian denies using tobacco, but has a distant history of tobacco abuse. - Ebola Screening: : No symptoms or risks identified at this time. ROS: 16:00 Eyes: Negative for injury, pain, redness, and discharge, ENT: Negative for injury, pm1 pain, and discharge, Neck: Negative for injury, pain, and swelling. 16:00 Cardiovascular: Negative for chest pain, palpitations, and edema. 16:00 Abdomen/GI: Negative for abdominal pain, nausea, vomiting, diarrhea, and constipation, Back: Negative for injury and pain, MS/Extremity: Negative for injury and deformity, Skin: Negative for injury, rash, and discoloration, Neuro: Negative for headache, weakness, numbness, tingling, and seizure. 16:00 Constitutional: Positive for body aches, chills, subjective fever, Negative for poor PO intake. 16:00 Respiratory: Positive for cough, shortness of breath. Exam: 16:00 Constitutional: This is a well developed, well nourished patient who is awake, alert, pm1 and in no acute distress. Head/Face: Normocephalic, atraumatic. Eyes: Pupils equal round and reactive to light, extra-ocular motions intact. Lids and lashes normal. Conjunctiva and sclera are non-icteric and not injected. Cornea within normal limits. Periorbital areas with no swelling, redness, or edema. ENT: Nares patent. No nasal discharge, no septal abnormalities noted. Tympanic membranes are normal and external auditory canals are clear. Oropharynx with no redness, swelling, or masses, exudates, or evidence of obstruction, uvula midline. Mucous membranes moist. Neck: Trachea midline, no thyromegaly or masses palpated, and no cervical lymphadenopathy. Supple, full range of motion without nuchal rigidity, or vertebral point tenderness. No Meningismus. Chest/axilla: Normal chest wall appearance and motion. Nontender with no deformity. No lesions are appreciated. Cardiovascular: Regular rate and rhythm with a normal S1 and S2. No gallops, murmurs, or rubs. Normal PMI, no JVD. No pulse deficits. 16:00 Abdomen/GI: Soft, non-tender, with normal bowel sounds. No distension or tympany. No guarding or rebound. No evidence of tenderness throughout. Back: No spinal tenderness. No costovertebral tenderness. Full range of motion. Skin: Warm, dry with normal turgor. Normal color with no rashes, no lesions, and no evidence of cellulitis. MS/ Extremity: Pulses equal, no cyanosis. Neurovascular intact. Full, normal range of motion. 16:00 Respiratory: the patient does not display signs of respiratory distress, Respirations: normal, Breath sounds: rhonchi, that are mild, are heard diffusely. 16:00 Neuro: Orientation: is normal, Motor: is normal, moves all fours. Vital Signs: 15:40 BP 118 / 58; Pulse 84; Resp 20; Pulse Ox 94% on 2 lpm NC; Weight 72.57 kg; Height 5 ft. tl3 3 in. (160.02 cm); 16:20 BP 120 / 72; Pulse 86; Resp 20; Pulse Ox 100% on Nebulizer Mask; tl3 17:47 Temp 99.6(O); tl3 18:22 BP 109 / 52; Pulse 84; Resp 18; Pulse Ox 89% on 3 lpm NC; tl3 19:27 BP 120 / 40; Pulse 85; Resp 18; Pulse Ox 96% on 3 lpm NC; tl3 15:40 Body Mass Index 28.34 (72.57 kg, 160.02 cm) tl3 MDM: 15:27 Patient medically screened. pm1 17:23 Physician consultation: Tessy Crain MD was called at 17:24, was contacted at 17:24, pm1 regarding admission, patient's condition, Requests procalcitonin. 19:00 Physician consultation: Tessy Crain MD was called at 18:50, was contacted at 18:50, pm1 regarding procalcitonin and recent echocardiogram 06/18/2018, EF and impaired left ventricular relaxation, She does not feel that patient meets hospitalization criteria for pneumonia. Discharge the patient home with steroids and breathing treatments. I felt that the patient would benefit from observation with breathing treatments, IV antibiotics, and steroids. Patient current PSI/PORT score is 72 points. 19:56 Data reviewed: vital signs. Data interpreted: Pulse oximetry: on room air is 96 %. pm1 Interpretation: normal. Counseling: I had a detailed discussion with the patient and/or guardian regarding: the historical points, exam findings, and any diagnostic results supporting the discharge/admit diagnosis, lab results, radiology results, the need for outpatient follow up, to return to the emergency department if symptoms worsen or persist or if there are any questions or concerns that arise at home. 10/18 15:36 Order name: Basic Metabolic Panel; Complete Time: 16:58 pm1 10/18 15:36 Order name: CBC with Diff; Complete Time: 16:58 pm1 10/18 15:36 Order name: LFT's; Complete Time: 16:58 pm1 10/18 15:36 Order name: Magnesium; Complete Time: 16:58 pm1 10/18 15:36 Order name: NT PRO-BNP pm10/18 15:36 Order name: PT-INR; Complete Time: 16:58 pm1 10/18 15:36 Order name: Troponin (emerg Dept Use Only); Complete Time: 16:58 pm1 10/18 15:36 Order name: XRAY Chest (1 view); Complete Time: 16:20 pm1 10/18 15:36 Order name: Blood Culture Adult (2) pm1 10/18 15:37 Order name: NT PRO-BNP; Complete Time: 16:58 EDMS 10/18 17:20 Order name: Procalcitonin; Complete Time: 18:48 pm1 10/18 15:36 Order name: EKG; Complete Time: 15:37 pm1 10/18 15:36 Order name: Cardiac monitoring; Complete Time: 16:27 pm1 10/18 15:36 Order name: EKG - Nurse/Tech; Complete Time: 16:27 pm1 10/18 15:36 Order name: IV Saline Lock; Complete Time: 15:55 pm1 10/18 15:36 Order name: Labs collected and sent; Complete Time: 16:27 pm1 10/18 15:36 Order name: O2 Per Protocol; Complete Time: 15:44 pm1 10/18 15:36 Order name: O2 Sat Monitoring; Complete Time: 15:45 pm1 Administered Medications: 15:55 Drug: Albuterol - atroVENT (3:1) (2.5 mg - 0.5 mg) 3 ml Route: Nebulizer; tl3 18:21 Follow up: Response: No adverse reaction tl3 16:26 Drug: predniSONE 60 mg Route: PO; tl3 18:21 Follow up: Response: No adverse reaction tl3 16:47 Drug: Rocephin 1 grams Route: IV; Rate: calculated rate; Site: right antecubital; tl3 Delivery: Primary tubing; 18:20 Follow up: IV Status: Completed infusion; IV Intake: 20ml tl3 16:47 Drug: Zithromax 500 mg Route: IVPB; Infused Over: 1 hrs; Site: right antecubital; tl3 Delivery: Primary tubing; 18:20 Follow up: IV Status: Completed infusion; IV Intake: 250ml tl3 18:24 Drug: Magnesium Sulfate 1 grams Route: IVPB; Infused Over: 1 hrs; Site: right tl3 antecubital; Delivery: Primary tubing; 19:30 Follow up: IV Status: Completed infusion; IV Intake: 100ml tl3 19:46 Drug: Albuterol 5 mg Route: Inhalation; tl3 20:42 Follow up: Response: No adverse reaction tl3 Disposition: 10/18/18 19:57 Discharged to Home. Impression: Pneumonia, unspecified organism. - Condition is Stable. - Discharge Instructions: Community-Acquired Pneumonia, Adult. - Prescriptions for Albuterol Sulfate 2.5 mg /3 mL (0.083 %) Inhalation Solution for Nebulization - inhale 1 unit by NEBULIZATION route every 8 hours As needed; 1 box. Prednisone 20 mg Oral Tablet - take 2 tablet by ORAL route once daily for 5 days; 10 tablet. Albuterol Sulfate 90 mcg/actuation - inhale 1-2 puff by INHALATION route every 4-6 hours; 1 Inhaler. Augmentin 875- 125 mg Oral Tablet - take 1 tablet by ORAL route every 12 hours for 10 days; 20 tablet. - Medication Reconciliation Form, Thank You Letter, Antibiotic Education form. - Follow up: Emergency Department; When: As needed; Reason: Worsening of condition. Follow up: Private Physician; When: 2 - 3 days; Reason: Recheck today's complaints, Continuance of care, Re-evaluation by your physician. - Problem is new. - Symptoms have improved. Addendum: 10/21/2018 06:59 Co-signature as Attending Physician, Phillip Hurtado MD I agree with the assessment and k dr plan of care. Signatures: Dispatcher [employer] EDNM Phillip Hurtado MD MD [facility] Parag Vasquez, SECURITY CONTROL ASSESSOR SECURITY CONTROL ASSESSOR pm1 Funmilayo Dorsey, RN RN tl3 Corrections: (The following items were deleted from the chart) 10/18 20:43 19:57 10/18/2018 19:57 Discharged to Home. Impression: Pneumonia, unspecified organism. tl3 Condition is Stable. Forms are Medication Reconciliation Form, Thank You Letter, Antibiotic Education, Prescription Opioid Use. Follow up: Emergency Department; When: As needed; Reason: Worsening of condition. Follow up: Private Physician; When: 2 - 3 days; Reason: Recheck today's complaints, Continuance of care, Re-evaluation by your physician. Problem is new. Symptoms have improved. pm1
[2018-10-18 20:50] VITALS: TEMP 99.6
[2018-10-18 20:52] VITALS: BP 120/40; O2SAT 96
== END 2018-10-18 20:43 | disposition home or self-care (01) ==
LOC: ER 15:18
DX: J18.9 Pneumonia, unspecified organism (principal); I11.0 Hypertensive heart disease with heart failure; I50.9 Heart failure, unspecified; J44.9 Chronic obstructive pulmonary disease, unspecified; E11.9 Type 2 diabetes mellitus without complications; Z88.5 Allergy status to narcotic agent; Z88.7 Allergy status to serum and vaccine; Z79.82 Long term (current) use of aspirin; Z79.4 Long term (current) use of insulin
CPT/HCPCS: 36415; 71045; 80048; 80076; 83735; 83880; 84145; 84484; 85025; 85610; 87040 ×2; 87077; 87186; 87205 ×2; 93005; 94640; 96365; 96366; 96367; 96368; 99285; J0456; J0696; J3475; J7512

== ENCOUNTER 2018-12-08 13:46 | Observation (INO) | payer OTHER ==
[2018-12-08 15:48] LABS: Absolute Lymphocytes (CBC) 2.8 K/uL (0.7-4.9); Absolute Monocytes 0.5 K/uL (0.1-1.3); Absolute Neutrophil 5.3 K/uL (1.8-8.0); Basophils % 0.6 % (0-1.3); Eosinophils % 1.9 % (0-4.4); Hematocrit 39.5 % (36.0-45.0); Lymphocytes % 31.6 % (15.3-44.8); Monocytes % 5.9 % (3.3-12.3); RBC Red Blood Cell Count 4.97 M/uL (3.86-4.86)
[2018-12-08 15:56] LABS: Protime INR 0.97
[2018-12-08] MEDS ORDERED: ALBUTEROL 2.5 MG/3 ML NEB SOL ONE (16:00)
[2018-12-08] MEDS ORDERED: METHYLPREDNISOLONE 125 MG INJ ONE (16:00)
[2018-12-08] MEDS ORDERED: ONDANSETRON 4 MG/2 ML VIAL ONE (16:03)
[2018-12-08] MEDS ORDERED: Levofloxacin500mg IV 500 MG/100 ML BAG IV ONE (16:03)
[2018-12-08] MEDS ORDERED: FENTANYL CITR 100 MCG/2 ML ONE (16:03)
[2018-12-08] MEDS ORDERED: IPRATROPIUM BROM 0.5MG/2.5ML ONE (16:04)
[2018-12-08 16:08] LABS: ALT/SGPT 12 U/L (12-78); Albumin 3.6 g/dL (3.4-5.0); Alkaline Phosphatase 96 U/L (45-117); BUN Blood Urea Nitrogen 16 mg/dL (7-18); Bicarbonate 27 mmol/L (21-32); Bilirubin Direct < 0.1 mg/dL (0-0.2); Bilirubin Total 0.3 mg/dL (0.2-1.0); Glucose Level 345 mg/dL (74-106); Lipase 191 U/L (73-393); Magnesium 1.9 mg/dL (1.8-2.4); NT PRO-BNP 48 pg/mL (<125); Potassium 4.1 mmol/L (3.5-5.1); Protein, Total 8.3 g/dL (6.4-8.2); Sodium Level 138 mmol/L (136-145); Troponin (Emerg Dept Use Only) < 0.02 ng/mL (0.0-0.045)
[2018-12-08 16:20] LABS: AST/SGOT < 3 U/L (15-37)
[2018-12-08] MEDS ORDERED: DEXAMETHASONE 10 MG/ML VIAL ONE (16:27)
[2018-12-08 16:28] LABS: Urine Blood NEGATIVE (NEG); Urine Glucose 2+ (NEG); Urine Protein NEGATIVE (NEG); Urine Specific Gravity 1.015 (1.005-1.030); Urine pH 5.5 (5.0-7.0)
[2018-12-08] MEDS ORDERED: DIAZEPAM 5 MG TABLET ONE (16:28)
--- NOTE | 2018-12-08 16:33 | RAD REPORT ---
EXAM DESCRIPTION: CT - [id number] - 12/08/2018 4:13 pm CLINICAL HISTORY: Trauma, head and neck injury. PAIN COMPARISON: No comparisons TECHNIQUE: Axial 5 mm thick images of the head were obtained. Axial 2 mm thick images of the cervical spine were obtained with sagittal and coronal reconstruction images generated and reviewed. All CT scans are performed using dose optimization technique as appropriate and may include automated exposure control or mA/KV adjustment according to patient size. FINDINGS: CT HEAD WITHOUT CONTRAST: No acute hemorrhage, hydrocephalus or extra-axial collection is identified.Mild generalized brain atr ophy is present with mild periventricular and deep white matter chronic microvascular ischemic change s.No areas of brain edema or midline shift. Mild mucosal thickening is present involving the sphenoid sinuses. The paranasal sinuses and mastoids are clear.The calvarium is intact. CT CERVICAL SPINE WITHOUT CONTRAST: No fracture or subluxation.Mild lower cervical degenerative changes.No prevertebral soft tissues swel ling is identified. IMPRESSION: No acute intracranial or cervical spine findings.
--- NOTE | 2018-12-08 16:34 | ER ---
Nurse's Notes [facility] Name: Nakia Turcios Age: 62 yrs Sex: Female : 1955 Arrival Date: 12/08/2018 Time: 13:50 Bed 28 Private MD: Erasmo Jimenez Diagnosis: Chronic obstructive pulmonary disease with (acute) exacerbation;Pneumonia due to other specified bacteria;Strain of muscle, fascia and tendon at neck level;Type 1 diabetes mellitus Presentation: 12/08 13:56 Presenting complaint: Patient states: is started with pain on the L side of my neck, hj now the pain is on the L side of my head and inside my gums; i also have trouble breathing, i use O2 at home at 3L/min; denies fever and chills;. Transition of care: patient was not received from another setting of care. Acute neurological deficit: none identified. Onset of symptoms was December 08, 2018. Risk Assessment: Do you want to hurt yourself or someone else? Patient reports no desire to harm self or others. Initial Sepsis Screen: Does the patient meet any 2 criteria? No. Patient's initial sepsis screen is negative. Does the patient have a suspected source of infection? No. Patient's initial sepsis screen is negative. Care prior to arrival: None. 13:56 Method Of Arrival: Ambulatory 13:56 Acuity: JESUSITA 3 hj 14:59 Acuity: JESUSITA 3 la1 Triage Assessment: 14:00 General: Appears in no apparent distress. uncomfortable, Behavior is calm, cooperative, hj appropriate for age. 14:01 Pain: Complains of pain in neck. Historical: - Allergies: 14:00 Codeine (Anaphylaxis); hj 14:00 FLU VACCINE; hj - Home Meds: 14:00 Albuterol Inhl 4 times per day [Active]; alprazolam 1 mg Oral tab 3 times per day for hj Anxiety [Active]; aspirin 81 mg Oral chew 1 tab once daily [Active]; atorvastatin 20 mg Oral tab 1 tab nightly [Active]; bupropion HCl 150 mg Oral TbER 1 tab 2 times per day [Active]; clopidogrel 75 mg Oral tab [Active]; Daliresp 500 mcg Oral tab 1 tab once daily [Active]; divalproex 250 mg Oral Tb24 2 tabs once daily [Active]; Insulin: Novolin 70/30 130 units in am and 105 at night Sub-Q [Active]; lisinopril 10 mg Oral tab 1 tab once daily [Active]; Lyrica 300mg Oral 2 times per day [Active]; montelukast 10 mg Oral tab once daily [Active]; OMEGA-3 daily [Active]; pravastatin 40 mg Oral tab 1 tab once daily [Active]; sertraline 100 mg Oral tab 1 tab once daily [Active]; Tessalon Perles 100 mg Oral cap 2 caps 3 times per day for Cough [Active]; Zithromax 250 mg Oral tab 1 tab once daily [Active]; - PMHx: 14:00 CHF; COPD; Diabetes - IDDM; Hypertension; neuropathy; hj - PSHx: 14:00 Knee surgery; Appendectomy; wrist; R foot; cataract; pain pump; hj - Immunization history:: Adult Immunizations not up to date. - Social history:: Smoking status: Patient uses tobacco products, Patient/guardian denies using alcohol. - Ebola Screening: : Patient negative for fever greater than or equal to 101.5 degrees Fahrenheit, and additional compatible Ebola Virus Disease symptoms Patient denies exposure to infectious person Patient denies travel to an Ebola-affected area in the 21 days before illness onset. - Family history:: not pertinent. Screenin:00 Abuse screen: Denies threats or abuse. Denies injuries from another. Nutritional hj screening: No deficits noted. Tuberculosis screening: No symptoms or risk factors identified. Fall Risk None identified. Assessment: 14:01 Neuro: Level of Consciousness is awake, alert, obeys commands, Oriented to person, hj place, time, situation, Appropriate for age. 14:49 General: Appears comfortable, Behavior is calm, cooperative. Pain: Complains of pain in la1 left faith. Cardiovascular: Capillary refill < 3 seconds Patient's skin is warm and dry. Respiratory: Reports Pt on home 02 at 3L all day Airway is patent Respiratory effort is even, unlabored, Respiratory pattern is regular, symmetrical, Breath sounds with wheezes bilaterally. the patient has mild shortness of breath. GI: No signs and/or symptoms were reported involving the gastrointestinal system. : No signs and/or symptoms were reported regarding the genitourinary system. 16:02 Reassessment: Patient appears in no apparent distress at this time. No changes from la1 previously documented assessment. Patient and/or family updated on plan of care and expected duration. Pain level reassessed. Vital Signs: 14:01 BP 145 / 71; Pulse 80; Resp 20; Temp 98.2(O); Pulse Ox 95% on 3 lpm NC; Weight 69.85 hj kg; Height 5 ft. 3 in. (160.02 cm); Pain 10/10; 15:55 BP 162 / 69; Pulse 75; Resp 19; Pulse Ox 98% ; lt1 16:01 BP 140 / 95; Pulse 76; Resp 24; Pulse Ox 98% on 3 lpm NC; la1 17:16 BP 150 / 75; Pulse 87; Resp 22; Pulse Ox 97% on 3 lpm NC; la1 18:11 BP 120 / 98; Pulse 76; Resp 18; Pulse Ox 97% on 3 lpm NC; la1 18:57 BP 106 / 56; Pulse 101; Resp 20; Pulse Ox 89% on 3 lpm NC; la1 14:01 Body Mass Index 27.28 (69.85 kg, 160.02 cm) ED Course: 13:50 Patient arrived in ED. ss4 13:52 Erasmo Jimenez MD is Private Physician. ss4 13:58 Triage completed. hj 14:00 Arm band placed on right wrist. hj 14:01 Patient has correct armband on for positive identification. Bed in low position. Call hj light in reach. Side rails up X 1. Adult w/ patient. 14:42 Harshad Kovacs, RN is Primary Nurse. la1 14:53 Luis Angel Romero MD is Attending Physician. anuja 15:28 Initial lab(s) drawn, sent to lab. First set of blood cultures drawn by il, Second set lt1 of blood cultures drawn by ED staff, Urine collected: clean catch specimen, clear. 15:41 Inserted saline lock: 20 gauge in left forearm, using aseptic technique. la1 15:41 Missed attempt(s): 20 gauge in right antecubital area. lt1 15:57 XRAY Chest (1 view) In Process Unspecified. EDMS 16:13 CT completed. Patient tolerated procedure well. Patient moved to CT. Patient moved back mw3 from CT. 16:14 CT Head C Spine In Process Unspecified. EDMS 16:32 Jose Eduardo Fowler DO is Hospitalizing Provider. anuja 17:11 Carotid Artery Bilateral In Process Unspecified. EDMS 20:14 No provider procedures requiring assistance completed. Patient admitted, IV remains in la1 place. Administered Medications: 16:00 Drug: SOLU-Medrol 125 mg Route: IVP; Site: left forearm; la1 16:41 Follow up: Response: No adverse reaction la1 16:01 Drug: fentaNYL (PF) 25 mcg Route: IVP; Site: left forearm; la1 16:42 Follow up: Response: No adverse reaction; Pain is decreased la1 16:01 Drug: Zofran 4 mg Route: IVP; Site: left forearm; la1 16:42 Follow up: Response: No adverse reaction la1 16:28 Drug: Valium 5 mg Route: PO; la1 16:43 Follow up: Response: No adverse reaction la1 16:28 Drug: Decadron - Dexamethasone 10 mg Route: IVP; Site: left forearm; la1 16:42 Follow up: Response: No adverse reaction la1 16:29 Drug: Albuterol - atroVENT (3:1) (2.5 mg - 0.5 mg) 3 ml Route: Nebulizer; la1 16:41 Follow up: Response: No adverse reaction la1 16:29 Drug: levofloxacin 500 mg Volume: 100 ml; Route: IVPB; Infused Over: 60 mins; Site: la1 left forearm; 17:38 Follow up: IV Status: Completed infusion la1 16:42 Not Given (Other Intervention Used): fentaNYL (PF) 25 mcg IVP once la1 17:37 Drug: Rocephin - (cefTRIAXone) 1 grams Route: IVPB; Infused Over: 30 mins; Site: left la1 antecubital; 17:37 Follow up: IV Status: Completed infusion la1 19:20 Not Given (Other Intervention Used): Insulin Regular Human 8 units IVP once la1 19:28 Drug: Insulin Regular Human 10 units {Co-Signature: ca1 (Sophia Beebe RN).} Route: IVP; la1 Site: left forearm; 20:14 Follow up: Response: No adverse reaction la1 19:32 Not Given (Medication to be given to patient upon admission): LanTUS 30 units Sub-Q oncela1 Point of Care Testing: Blood Glucose: 19:20 Blood Glucose: 445 mg/dL; lt1 Ranges: Outcome: 16:33 Decision to Hospitalize by Provider. anuja 20:14 Admitted to Med/surg accompanied by tech, via wheelchair, room 216, with chart. la1 20:14 Condition: stable 20:14 Instructed on the need for admit. 20:15 Patient left the ED. la1 Signatures: Dispatcher [employer] EDMS Luis Angel Romero MD MD cha Attema, Lee RN RN la1 Jay Baig RN RN Rosa Eller mw3 Kim Cramer lt1 Margaret Becerril ss4 Sophia Beebe RN ca1 Corrections: (The following items were deleted from the chart) 14:02 13:56 Acuity: JESUSITA 3 hj hj 14:03 14:01 Pulse 80bpm; Resp 20bpm; Pulse Ox 95% 3 lpm Nasal Cannula; Temp 98.2F Oral; 69.85 hj kg; Height 5 ft. 3 in.; BMI: 27.2; Pain 10/10; hj 16:38 13:56 Acuity: JESUSITA 4 hj hj 18:12 18:11 BP 120 / 98; Pulse 76bpm; Resp 18bpm; Pulse Ox 100% RA; la1 la1
--- NOTE | 2018-12-08 16:34 | EDPHYS ---
Physician Documentation [facility] Name: Nakia Turcios Age: 62 yrs Sex: Female : 1955 Arrival Date: 12/08/2018 Time: 13:50 Bed 28 Private MD: Erasmo Jimenez ED Physician Luis Angel Romero HPI: 12/08 15:40 This 62 yrs old Female presents to ER via Ambulatory with complaints of Neck anuja Pain, >24Hrs Old, Headache, Shoulder Pain, Breathing Difficulty. 15:40 The patient or guardian complains of decreased range of motion, pain, spasm, stiffness, anuja tenderness. The symptoms are located at the cervical spine. Onset: The symptoms/episode began/occurred 3 day(s) ago. Context: The problem was sustained at an unknown location, The neck injury/problem resulted from from unknown cause. Associated signs and symptoms: The patient has no apparent associated signs or symptoms. The pain does not radiate. Severity of symptoms: At their worst the symptoms were moderate, in the emergency department the symptoms are unchanged. The patient has not experienced similar symptoms in the past. Historical: - Allergies: 14:00 Codeine (Anaphylaxis); hj 14:00 FLU VACCINE; hj - Home Meds: 14:00 Albuterol Inhl 4 times per day [Active]; alprazolam 1 mg Oral tab 3 times per day for hj Anxiety [Active]; aspirin 81 mg Oral chew 1 tab once daily [Active]; atorvastatin 20 mg Oral tab 1 tab nightly [Active]; bupropion HCl 150 mg Oral TbER 1 tab 2 times per day [Active]; clopidogrel 75 mg Oral tab [Active]; Daliresp 500 mcg Oral tab 1 tab once daily [Active]; divalproex 250 mg Oral Tb24 2 tabs once daily [Active]; Insulin: Novolin 70/30 130 units in am and 105 at night Sub-Q [Active]; lisinopril 10 mg Oral tab 1 tab once daily [Active]; Lyrica 300mg Oral 2 times per day [Active]; montelukast 10 mg Oral tab once daily [Active]; OMEGA-3 daily [Active]; pravastatin 40 mg Oral tab 1 tab once daily [Active]; sertraline 100 mg Oral tab 1 tab once daily [Active]; Tessalon Perles 100 mg Oral cap 2 caps 3 times per day for Cough [Active]; Zithromax 250 mg Oral tab 1 tab once daily [Active]; - PMHx: 14:00 CHF; COPD; Diabetes - IDDM; Hypertension; neuropathy; hj - PSHx: 14:00 Knee surgery; Appendectomy; wrist; R foot; cataract; pain pump; hj - Immunization history:: Adult Immunizations not up to date. - Social history:: Smoking status: Patient uses tobacco products, Patient/guardian denies using alcohol. - Ebola Screening: : Patient negative for fever greater than or equal to 101.5 degrees Fahrenheit, and additional compatible Ebola Virus Disease symptoms Patient denies exposure to infectious person Patient denies travel to an Ebola-affected area in the 21 days before illness onset. - Family history:: not pertinent. ROS: 15:40 Constitutional: Negative for fever, chills, and weight loss, Eyes: Negative for injury, anuja pain, redness, and discharge, ENT: Negative for injury, pain, and discharge, Cardiovascular: Negative for chest pain, palpitations, and edema, Abdomen/GI: Negative for abdominal pain, nausea, vomiting, diarrhea, and constipation, Back: Negative for injury and pain, : Negative for injury, bleeding, discharge, and swelling, MS/Extremity: Negative for injury and deformity, Skin: Negative for injury, rash, and discoloration, Neuro: Negative for headache, weakness, numbness, tingling, and seizure, Psych: Negative for depression, anxiety, suicide ideation, homicidal ideation, and hallucinations, Allergy/Immunology: Negative for hives, rash, and allergies, Endocrine: Negative for neck swelling, polydipsia, polyuria, polyphagia, and marked weight changes. 15:40 Neck: Positive for pain with movement, pain at rest, tenderness, of the base of the skull. 15:40 Respiratory: Positive for cough, shortness of breath, wheezing, inspiratory, expiratory. Exam: 15:40 Constitutional: This is a well developed, well nourished patient who is awake, alert, anuja and in no acute distress. Head/Face: Normocephalic, atraumatic. Eyes: Pupils equal round and reactive to light, extra-ocular motions intact. Lids and lashes normal. Conjunctiva and sclera are non-icteric and not injected. Cornea within normal limits. Periorbital areas with no swelling, redness, or edema. ENT: Nares patent. No nasal discharge, no septal abnormalities noted. Tympanic membranes are normal and external auditory canals are clear. Oropharynx with no redness, swelling, or masses, exudates, or evidence of obstruction, uvula midline. Mucous membranes moist. Neck: Trachea midline, no thyromegaly or masses palpated, and no cervical lymphadenopathy. Supple, full range of motion without nuchal rigidity, or vertebral point tenderness. No Meningismus. Chest/axilla: Normal chest wall appearance and motion. Nontender with no deformity. No lesions are appreciated. Cardiovascular: Regular rate and rhythm with a normal S1 and S2. No gallops, murmurs, or rubs. Normal PMI, no JVD. No pulse deficits. Abdomen/GI: Soft, non-tender, with normal bowel sounds. No distension or tympany. No guarding or rebound. No evidence of tenderness throughout. Back: No spinal tenderness. No costovertebral tenderness. Full range of motion. Female : Normal external genitalia. MS/ Extremity: Pulses equal, no cyanosis. Neurovascular intact. Full, normal range of motion. Neuro: Awake and alert, GCS 15, oriented to person, place, time, and situation. Cranial nerves II-XII grossly intact. Motor strength 5/5 in all extremities. Sensory grossly intact. Cerebellar exam normal. Normal gait. Psych: Awake, alert, with orientation to person, place and time. Behavior, mood, and affect are within normal limits. 15:40 Respiratory: mild respiratory distress is noted, Respirations: labored breathing, that is mild, Breath sounds: bronchial sounds, decreased breath sounds, rhonchi, wheezing: expiratory Vital Signs: 14:01 BP 145 / 71; Pulse 80; Resp 20; Temp 98.2(O); Pulse Ox 95% on 3 lpm NC; Weight 69.85 hj kg; Height 5 ft. 3 in. (160.02 cm); Pain 10/10; 15:55 BP 162 / 69; Pulse 75; Resp 19; Pulse Ox 98% ; lt1 16:01 BP 140 / 95; Pulse 76; Resp 24; Pulse Ox 98% on 3 lpm NC; la1 17:16 BP 150 / 75; Pulse 87; Resp 22; Pulse Ox 97% on 3 lpm NC; la1 18:11 BP 120 / 98; Pulse 76; Resp 18; Pulse Ox 97% on 3 lpm NC; la1 18:57 BP 106 / 56; Pulse 101; Resp 20; Pulse Ox 89% on 3 lpm NC; la1 14:01 Body Mass Index 27.28 (69.85 kg, 160.02 cm) hj MDM: 14:53 Patient medically screened. [facility] 15:43 Data reviewed: vital signs, nurses notes, lab test result(s), EKG, radiologic studies, [facility] CT scan, plain films. 12/08 15:25 Order name: Basic Metabolic Panel [facility] 12/08 15:25 Order name: CBC with Diff; Complete Time: 16:06 [facility] 12/08 15:25 Order name: LFT's; Complete Time: 16:30 [facility] 12/08 15:25 Order name: Magnesium; Complete Time: 16:30 [facility] 12/08 15:25 Order name: NT PRO-BNP [facility] 12/08 15:25 Order name: PT-INR; Complete Time: 16:30 [facility] 12/08 15:25 Order name: Troponin (emerg Dept Use Only); Complete Time: 16:30 [facility] 12/08 15:25 Order name: Blood Culture Adult (2) [facility] 12/08 15:25 Order name: Lipase; Complete Time: 16:30 [facility] 12/08 15:26 Order name: Basic Metabolic Panel; Complete Time: 16:30 [facility] 12/08 15:26 Order name: NT PRO-BNP; Complete Time: 16:30 [facility] 12/08 16:19 Order name: Urine Dipstick--Ancillary (enter results); Complete Time: 16:30 12/08 16:32 Order name: Influenza Screen (a \T\ B); Complete Time: 19:13 [facility] 12/08 19:24 Order name: Glucose, Ancillary Testing [facility] 12/08 15:25 Order name: XRAY Chest (1 view); Complete Time: 17:16 [facility] 12/08 15:25 Order name: EKG; Complete Time: 15:26 [facility] 12/08 15:40 Order name: US Carotid Artery Bilateral; Complete Time: 19:13 [facility] 12/08 15:40 Order name: CT Head C Spine; Complete Time: 17:16 [facility] 12/08 15:25 Order name: Cardiac monitoring; Complete Time: 15:45 [facility] 12/08 15:25 Order name: EKG - Nurse/Tech; Complete Time: 15:45 [facility] 12/08 15:25 Order name: IV Saline Lock; Complete Time: 15:43 [facility] 12/08 15:25 Order name: Labs collected and sent; Complete Time: 15:43 [facility] 12/08 15:25 Order name: O2 Per Protocol; Complete Time: 15:45 [facility] 12/08 15:25 Order name: O2 Sat Monitoring; Complete Time: 15:45 [facility] Administered Medications: 16:00 Drug: SOLU-Medrol 125 mg Route: IVP; Site: left forearm; la1 16:41 Follow up: Response: No adverse reaction la1 16:01 Drug: fentaNYL (PF) 25 mcg Route: IVP; Site: left forearm; la1 16:42 Follow up: Response: No adverse reaction; Pain is decreased la1 16:01 Drug: Zofran 4 mg Route: IVP; Site: left forearm; la1 16:42 Follow up: Response: No adverse reaction la1 16:28 Drug: Valium 5 mg Route: PO; la1 16:43 Follow up: Response: No adverse reaction la1 16:28 Drug: Decadron - Dexamethasone 10 mg Route: IVP; Site: left forearm; la1 16:42 Follow up: Response: No adverse reaction la1 16:29 Drug: Albuterol - atroVENT (3:1) (2.5 mg - 0.5 mg) 3 ml Route: Nebulizer; la1 16:41 Follow up: Response: No adverse reaction la1 16:29 Drug: levofloxacin 500 mg Volume: 100 ml; Route: IVPB; Infused Over: 60 mins; Site: la1 left forearm; 17:38 Follow up: IV Status: Completed infusion la1 16:42 Not Given (Other Intervention Used): fentaNYL (PF) 25 mcg IVP once la1 17:37 Drug: Rocephin - (cefTRIAXone) 1 grams Route: IVPB; Infused Over: 30 mins; Site: left la1 antecubital; 17:37 Follow up: IV Status: Completed infusion la1 19:20 Not Given (Other Intervention Used): Insulin Regular Human 8 units IVP once la1 19:28 Drug: Insulin Regular Human 10 units {Co-Signature: ca1 (Sophia Beebe RN).} Route: IVP; la1 Site: left forearm; 20:14 Follow up: Response: No adverse reaction la1 19:32 Not Given (Medication to be given to patient upon admission): LanTUS 30 units Sub-Q oncela1 Point of Care Testing: Blood Glucose: 19:20 Blood Glucose: 445 mg/dL; lt1 Ranges: Critical Glucose Levels:Adult <50 mg/dl or >400 mg/dl <40 mg/dl or >180 mg/dl Disposition: 12/08/18 16:33 Hospitalization ordered by Jose Eduardo Fowler for Inpatient Admission. Preliminary diagnosis are Chronic obstructive pulmonary disease with (acute) exacerbation, Pneumonia due to other specified bacteria, Strain of muscle, fascia and tendon at neck level, Type 1 diabetes mellitus. - Bed requested for Telemetry/MedSurg (Inpatient). - Status is Inpatient Admission. la1 - Condition is Fair. - Problem is new. - Symptoms have improved. UTI on Admission? No Signatures: Dispatcher [employer] EDMS Luis Angel Romero MD MD cha Attema, Lee RN RN la1 Jay Baig RN RN Toshia Gutierrez RN RN df Sophia Beebe RN ca1 Corrections: (The following items were deleted from the chart) 18:28 16:33 Hospitalization Ordered by Jose Eduardo Fowler DO for Inpatient Admission. Preliminary df diagnosis is Chronic obstructive pulmonary disease with (acute) exacerbation; Pneumonia due to other specified bacteria; Strain of muscle, fascia and tendon at neck level; Type 1 diabetes mellitus. Bed requested for Telemetry/MedSurg (Inpatient). Status is Inpatient Admission. Condition is Fair. Problem is new. Symptoms have improved. UTI on Admission? No. anuja 20:15 18:28 12/08/2018 16:33 Hospitalization Ordered by Jose Eduardo Fowler DO for Inpatient la1 Admission. Preliminary diagnosis is Chronic obstructive pulmonary disease with (acute) exacerbation; Pneumonia due to other specified bacteria; Strain of muscle, fascia and tendon at neck level; Type 1 diabetes mellitus. Bed requested for Telemetry/MedSurg (Inpatient). Status is Inpatient Admission. Condition is Fair. Problem is new. Symptoms have improved. UTI on Admission? No. df
--- NOTE | 2018-12-08 16:36 | RAD REPORT ---
EXAM DESCRIPTION: RAD - Chest Single View - 12/08/2018 3:56 pm CLINICAL HISTORY: COUGH Chest pain. COMPARISON: Chest Single View dated 10/18/2018; Chest Pa And Lat (2 Views) dated 06/21/2018; Chest Sing le View dated 06/20/2018; Chest Pa And Lat (2 Views) dated 06/19/2018 FINDINGS: Portable technique limits examination quality. A small opacity is present in the left base, improved since 10/18/2018 but still present, likely repr esenting mild residual pneumonia. The heart is upper limit of normal in size. No displaced fractures.
--- NOTE | 2018-12-08 17:22 | RAD REPORT ---
EXAM DESCRIPTION: US - CP - 12/08/2018 5:11 pm CLINICAL HISTORY: Weakness;Headache Headache, drowsiness. COMPARISON: Head C Spine Mpr Wo Con dated 12/08/2018 TECHNIQUE: Real-time sonographic evaluation of both carotid systems was performed. Doppler interroga tion was performed with waveform tracing bilaterally. FINDINGS: Normal high resistance waveforms are noted in both external carotid arteries. The common c arotid arteries and internal carotid arteries show normal low resistance waveforms. No significant plaque formation is seen. Peak systolic and end diastolic velocity values and the ICA/ CCA ratios are in the non-hemodynamically significant range. Antegrade flow seen in both vertebral arteries. IMPRESSION: No significant atherosclerotic changes noted. No evidence of a hemodynamically significant stenosis.
[2018-12-08] MEDS ORDERED: D50W 25 GM/50 ML SYRINGE IV PRN (17:32)
[2018-12-08] MEDS ORDERED: GLUCAGON 1 MG/VIAL IM PRN (17:32)
[2018-12-08] MEDS ORDERED: CEFTRIAXONE/SWI 1gm 1 GM/10 ML SYR ONE (17:38)
--- NOTE | 2018-12-08 17:40 | P.HP ---
Certification for Inpatient Patient admitted to: Observation With expected LOS: <2 Midnights Patient will require the following post-hospital care: Home Health Services Practitioner: I am a practitioner with admitting privileges, knowledge of patient current condition, hospital course, and medical plan of care. Services: Services provided to patient in accordance with Admission requirements found in Title 42 Section 412.3 of the Code of Federal Regulations Patient History Date of Service: 12/08/18 Primary Care Provider: Dr. Whalen; Pulmonary-Dr. Chau Reason for admission: Shortness of breath History of Present Illness: 62-year-old female presented to the emergency room with increasing shortness of breath, cough and congestion. Patient with history of COPD, hypertension, diabetes, obesity. She reported increasing cough and congestion over the last several days. She further reported some neck pain that radiated to the head. She came to the ER for further evaluation. In the ER patient evaluated. Patient was giving several breathing treatments. CBC and BMP reviewed. Troponin unremarkable. Chest x-ray negative. CT head also negative. Patient was admitted for observation due to COPD exacerbation. When I saw the patient ER, she appeared comfortable. Allergies codeine [Codeine] Allergy (Intermediate, Verified 02/03/17 19:52) Itching/Hives/Rash flu vaccine Allergy (Uncoded 02/03/17 19:52) Anaphylaxis Home medications list reviewed: Yes Home Medications: Aspirin 81 mg PO DAILY 01/30/12 Divalproex ER [Depakote *ER] 250 mg PO BID 01/19/15 Clopidogrel Bisulfate [Plavix] 1 tab PO DAILY 09/21/16 Lisinopril [Zestril] 10 mg PO DAILY 09/21/16 Pregabalin [Lyrica] 300 cap PO BID 09/21/16 Sertraline [Zoloft*] 1 tab PO DAILY 09/21/16 Insulin 70/30 NPH/Reg Human [Novolin 70/30*] 0 unit SQ SEECOM 02/03/17 Montelukast [Singulair*] 1 tab PO BEDTIME 10/21/17 Pravastatin Sodium 40 mg PO DAILY 10/21/17 Tiotropium [place] [Spiriva] 1 puff PO DAILY 10/21/17 Albuterol Sulfate [Proventil Hfa] 2 inhaler IH QID PRN 11/22/17 ALPRAZolam [Xanax*] 1 mg PO BEDTIME tab 06/19/18 Albuterol Neb [Proventil 0.083% Neb Soln] 2.5 mg NEB TID PRN #90 amp 06/19/18 Arformoterol Tartrate [Brovana] 15 mcg NEB BIDRESP #60 vial.neb 06/19/18 Furosemide [Lasix*] 20 mg PO DAILY #30 tab 06/19/18 Loperamide [Imodium*] 2 mg PO TID PRN 06/19/18 Nicotine [Nicoderm*] 21 mg TD BEDTIME #30 patch.td24 06/19/18 [place]-3 Fatty Acids/Fish Oil [Eql [place]-3 Fish Oil 1,000 mg] 1 each PO DAILY 12/02 Tizanidine [Zanaflex*] 4 mg PO BID PRN tab 06/19/18 Zinc 50 mg PO DAILY 06/19/18 predniSONE [Prednisone*] 20 mg PO SEECOM #15 tab 06/19/18 traMADol HCL [Ultram*] 50 mg PO Q12HP PRN tab 06/19/18 - Past Medical/Surgical History Diabetic: Yes -: Neuropathy -: Diabetes mellitus type 2 insulin-dependent -: A-Fib -: COPD, severe, oxygen-dependent -: Depression with anxiety -: Hyperlipidemia -: Hypertension -: Chronic migraines -: Chronic pain -: Chronic ulcers to the lower extremity -: Chronic renal disease -: CHF, diastolic dysfunction -: APPENDECTOMY, LEFT KNEE surgery, FOOT SX, EYE surgery -: COMPLETE HYSTERECTOMY , PLATE PLACED ON right WRIST -: 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 She also has a common-law partner. She does not work. Patient is DNR. - Family History Father -: Heart disease, Lung disease Mother -: Lung disease, Diabetes - Social History Smoking Status: Current every day smoker Smoking therapy provided: Yes Patient receptive to therapy: Yes Alcohol use: Yes CD- Drugs: No Caffeine use: Yes Place of Residence: Home Review of Systems General: As per HPI Eyes: Unremarkable ENT: Unremarkable Respiratory: Cough, Shortness of Breath, Wheezing, As per HPI Cardiovascular: Unremarkable Gastrointestinal: Unremarkable Genitourinary: Unremarkable Musculoskeletal: Neck Pain Integumentary: Unremarkable Neurological: Unremarkable Lymphatics: Unremarkable Physical Examination - Physical Exam General: Alert, In no apparent distress, Oriented x3, Cooperative HEENT: Atraumatic, Normocephalic, Mucous membr. moist/pink, Other (Mild neck soreness) Neck: Supple Respiratory: Expiratory wheezes, Inspiratory wheezes Cardiovascular: Normal pulses, Regular rate/rhythm Gastrointestinal: Normal bowel sounds, Soft and benign, Non-distended, No tenderness, No masses, No rebound, No guarding Musculoskeletal: No erythema, No tenderness, No warmth Integumentary: No tenderness/swelling, No erythema, No warmth, No cyanosis Neurological: Normal speech, Normal strength at 5/5 x4 extr, Normal tone, Normal affect - Studies Laboratory Data (last 24 hrs) 12/08/18 15:18: PT 11.5, INR 0.97 12/08/18 15:18: WBC 8.9, Hgb 13.1, Hct 39.5, Plt Count 193 12/08/18 15:18: Sodium 138, Potassium 4.1, BUN 16, Creatinine 0.75, Glucose 345 H, Magnesium 1.9, Total Bilirubin 0.3, AST < 3 L, ALT 12, Alkaline Phosphatase 96, Lipase 191 Assessment and Plan - Plan Impression: COPD exacerbation on chronic steroids and oxygen Neck pain with history of degenerative disc and joint disease Hypertension Chronic diastolic CHF Diabetes mellitus type 2 Diabetic neuropathy with chronic pain Obesity Chronic headaches Depression with anxiety Plan: COPD exacerbation on chronic steroids and oxygen: Patient will be admitted for observation. Will increase prednisone dose. Continue COPD medication. Will maintain sats above 90%. Will reassess tomorrow. Recheck chest x-ray. Pulmonology consulted to further evaluate. Anticipate discharge as early as tomorrow if this is improved. I will turn the service over to Dr. Haq tomorrow. I will go over the plan of care with her. Neck pain with history of degenerative disc and joint disease: Will provide medication for pain. Patient with chronic pain. This can be further addressed as an outpatient by pain management. Hypertension: Will need to review and restart home medication. Chronic diastolic CHF: Continue 1500 cc per day fluid restriction and diuretic therapy. Diabetes mellitus type 2: Will provide sliding scale. Monitor closely. Diabetic neuropathy with chronic pain: Provide pain medication. Obesity: Address lifestyle modification education. Chronic headaches: Will monitor closely. Will provide medication for pain. Discharge Plan: Home Plan to discharge in: 24 Hours - Advance Directives Does patient have a Living Will: Yes Does patient have a Durable POA for Healthcare: No Time Spent Managing Pts Care (In Minutes): 55
[2018-12-08] MEDS ORDERED: INSULIN -REGULAR HUMAN 50 UNIT/0.5 ML ML ONE (19:36)
[2018-12-08] MEDS ORDERED: ALBUTEROL 2.5 MG/3 ML NEB SOL NEB PRN (20:00)
[2018-12-08] MEDS ORDERED: ACETAMINOPHEN 500 MG TAB PO PRN (20:00)
[2018-12-08] MEDS ORDERED: IPRATROPIUM BROM 0.5MG/2.5ML NEB PRN (20:00)
[2018-12-08] MEDS ORDERED: HYDRALAZINE HCL 20 MG/ML VIAL IV PRN (20:00)
[2018-12-08] MEDS: ARFORMOTEROL TARTRATE 15 MCG/2 ML VIAL.NEB NEB SCH (20:00)
[2018-12-08] MEDS ORDERED: INSULIN GLARGINE 100 UNITS/ML SQ ONE (20:00)
[2018-12-08] MEDS ORDERED: TRAMADOL HCL 50 MG TAB PO PRN (20:00)
[2018-12-08 20:10] VITALS: BMI 28.7
[2018-12-08] MEDS: FAMOTIDINE 20 MG TAB PO SCH (21:59)
[2018-12-08] MEDS: ATORVASTATIN 10 MG TAB PO SCH (21:59)
[2018-12-08] MEDS: predniSONE 20 MG TAB PO SCH (22:02)
[2018-12-08] MEDS: HYDROCODONE/APAP 7.5/325 MG TAB PO PRN (22:29)
[2018-12-08] MEDS: INSULIN -REGULAR HUMAN 50 UNIT/0.5 ML ML SQ SCH (22:29)
[2018-12-08] MEDS: PREGABALIN 150 MG CAP PO SCH (22:49)
[2018-12-08] MEDS: ALPRAZOLAM 1 MG TABLET PO PRN (22:49)
[2018-12-09 06:11] LABS: Absolute Lymphocytes (CBC) 0.7 K/uL (0.7-4.9); Absolute Monocytes 0.1 K/uL (0.1-1.3); Absolute Neutrophil 10.6 K/uL (1.8-8.0); Basophils % 0.2 % (0-1.3); Hematocrit 37.1 % (36.0-45.0); Lymphocytes % 6.1 % (15.3-44.8); MPV 9.3 fL (7.6-11.3); RBC Red Blood Cell Count 4.71 M/uL (3.86-4.86)
[2018-12-09 06:25] LABS: Magnesium 1.7 mg/dL (1.8-2.4); Potassium 4.6 mmol/L (3.5-5.1)
[2018-12-09] MEDS ORDERED: MAGNESIUM SULFATE 1 gm IVPB 1 GM/100 ML BAG IV ONE (08:00)
[2018-12-09 08:10] LABS: Urine Appearance CLEAR; Urine Bilirubin NEGATIVE (NEG); Urine Blood NEGATIVE (NEG); Urine Color YELLOW; Urine Glucose 3+ (NEG); Urine Protein NEGATIVE (NEG); Urine Specific Gravity >=1.030 (1.005-1.030); Urine Urobilinogen 0.2 mg/dL (0.2-1.0); Urine pH 5.5 (5.0-7.0)
[2018-12-09] MEDS: ARFORMOTEROL TARTRATE 15 MCG/2 ML VIAL.NEB NEB SCH ×2 (08:16→19:57)
[2018-12-09 08:20] LABS: Urine Microscopic Reflex ORDER UMIC
[2018-12-09 08:23] LABS: Urine Bacteria <20 /HPF (<20); Urine Culture Reflex Order NOT NEEDED; Urine RBC <5 /HPF (NONE SEEN)
[2018-12-09] MEDS: ENOXAPARIN 40 MG/0.4 ML SQ SCH (08:51)
--- NOTE | 2018-12-09 08:51 | EKG ---
Test Date: 2018-12-08 Test Time: 15:43:13 Picture Copyist: TENNILLE MEASUREMENT RESULTS: Intervals: Rate: 78 MD: 124 QRSD: 140 QT: 412 QTc: 469 [place]: P: 51 MD: 124 QRS: 64 T: 28 INTERPRETIVE STATEMENTS: Normal sinus rhythm Right bundle branch block Abnormal ECG Compared to ECG 10/18/2018 16:24:25 No significant changes Electronically Signed On 12-09-18 08:50:17 CDT by Fransisco Khan
[2018-12-09] MEDS: PREGABALIN 150 MG CAP PO SCH ×2 (08:52→21:13)
[2018-12-09] MEDS: LIDOCAINE 5% PATCH TOP SCH (08:53)
[2018-12-09] MEDS: FUROSEMIDE 20 MG TABLET PO SCH (08:53)
[2018-12-09] MEDS: FAMOTIDINE 20 MG TAB PO SCH ×2 (08:53→21:13)
[2018-12-09] MEDS: CLOPIDOGREL 75 MG TABLET PO SCH (08:53)
[2018-12-09] MEDS: predniSONE 20 MG TAB PO SCH ×2 (08:53→21:13)
--- NOTE | 2018-12-09 08:54 | P.CNS ---
Date of Consult: 12/09/18 Primary Care Provider: Dr. Whalen; Pulmonary-Dr. Chau Chief Complaint: Shortness of breath History of Present Illness: Patient is 62 years of age well known to me with a history of COPD active smoker has been having some more shortness of breath over the past 2 weeks with productive cough. Came to the emergency room complaining of left-sided neck pain radiating to her left arm associated with some neck stiffness compliant with medication at home denies any edema has chronic abdominal diarrhea Allergies codeine [Codeine] Allergy (Intermediate, Verified 02/03/17 19:52) Itching/Hives/Rash flu vaccine Allergy (Uncoded 02/03/17 19:52) Anaphylaxis Home Medications: Aspirin 81 mg PO DAILY 01/30/12 Divalproex ER [Depakote *ER] 250 mg PO BID 01/19/15 Clopidogrel Bisulfate [Plavix] 1 tab PO DAILY 09/21/16 Lisinopril [Zestril] 10 mg PO DAILY 09/21/16 Pregabalin [Lyrica] 300 cap PO BID 09/21/16 Sertraline [Zoloft*] 1 tab PO DAILY 09/21/16 Insulin 70/30 NPH/Reg Human [Novolin 70/30*] 0 unit SQ SEECOM 02/03/17 Montelukast [Singulair*] 1 tab PO BEDTIME 10/21/17 Pravastatin Sodium 40 mg PO DAILY 10/21/17 Tiotropium [place] [Spiriva] 1 puff PO DAILY 10/21/17 Albuterol Sulfate [Proventil Hfa] 2 inhaler IH QID PRN 11/22/17 ALPRAZolam [Xanax*] 1 mg PO BEDTIME tab 06/19/18 Albuterol Neb [Proventil 0.083% Neb Soln] 2.5 mg NEB TID PRN #90 amp 06/19/18 Arformoterol Tartrate [Brovana] 15 mcg NEB BIDRESP #60 vial.neb 06/19/18 Furosemide [Lasix*] 20 mg PO DAILY #30 tab 06/19/18 Loperamide [Imodium*] 2 mg PO TID PRN 06/19/18 Nicotine [Nicoderm*] 21 mg TD BEDTIME #30 patch.td24 06/19/18 [place]-3 Fatty Acids/Fish Oil [Eql [place]-3 Fish Oil 1,000 mg] 1 each PO DAILY 12/02 Tizanidine [Zanaflex*] 4 mg PO BID PRN tab 06/19/18 Zinc 50 mg PO DAILY 06/19/18 predniSONE [Prednisone*] 20 mg PO SEECOM #15 tab 06/19/18 traMADol HCL [Ultram*] 50 mg PO Q12HP PRN tab 06/19/18 - Past Medical/Surgical History Diabetic: Yes -: Neuropathy -: Diabetes mellitus type 2 insulin-dependent -: A-Fib -: COPD, severe, oxygen-dependent -: Depression with anxiety -: Hyperlipidemia -: Hypertension -: Chronic migraines -: Chronic pain -: Chronic ulcers to the lower extremity -: Chronic renal disease -: CHF, diastolic dysfunction -: APPENDECTOMY, LEFT KNEE surgery, FOOT SX, EYE surgery -: COMPLETE HYSTERECTOMY , PLATE PLACED ON right WRIST -: 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 She also has a common-law partner. She does not work. Patient is DNR. - Family History Father Medical History: Heart disease, Lung disease Mother Medical History: Lung disease, Diabetes - Social History Smoking Status: Former smoker Alcohol use: No CD- Drugs: No Caffeine use: Yes Place of Residence: Home Review of Systems General: Weakness Respiratory: Cough, Shortness of Breath Musculoskeletal: As per HPI Neurological: As per HPI Physical Examination Temp Pulse Resp BP Pulse Ox 97.5 F 85 20 94/57 L 96 12/09/18 04:00 12/09/18 04:00 12/09/18 04:00 12/09/18 04:00 12/09/18 04:00 General: Alert, Oriented x3 Neck: Supple Respiratory: Diminished, Expiratory wheezes Cardiovascular: No edema, Regular rate/rhythm, Normal S1 S2 Gastrointestinal: Normal bowel sounds, Soft and benign Laboratory Data (last 24 hrs) 12/08/18 15:18: PT 11.5, INR 0.97 12/08/18 15:18: WBC 8.9, Hgb 13.1, Hct 39.5, Plt Count 193 12/08/18 15:18: Sodium 138, Potassium 4.1, BUN 16, Creatinine 0.75, Glucose 345 H, Magnesium 1.9, Total Bilirubin 0.3, AST < 3 L, ALT 12, Alkaline Phosphatase 96, Lipase 191 - Problems (1) COPD exacerbation Current Visit: Yes Status: Acute Plan: Patient is 62 years of age with a history of COPD active smoker admitted with worsening dyspnea productive cough patient's chest x-ray i possible left lower lobe pneumonia white count normal on admission (2) Neck pain Current Visit: Yes Status: Acute Plan: Patient is complaining of pain in the left side of her neck and radiating to the left arm associated with some neck stiffness CT scan of the neck was negative possible muscle spasm there is no associated neurological weakness
[2018-12-09] MEDS: ASPIRIN 81 MG CHEWABLE TABLET PO SCH (08:55)
[2018-12-09] MEDS ORDERED: HOME MED 1 EA UNK (Pravastatin Sodium [Pravastatin Sodium] 40 MG) PO SCH (09:00)
[2018-12-09] MEDS: INSULIN -REGULAR HUMAN 50 UNIT/0.5 ML ML SQ SCH ×4 (09:02→21:14)
[2018-12-09] MEDS: levoFLOXacin 500 MG TAB PO SCH (10:35)
--- NOTE | 2018-12-09 10:48 | P.PN ---
Subjective Date of Service: 12/09/18 Primary Care Provider: Dr. Whalen; Pulmonary-Dr. Chau Chief Complaint: Shortness of breath Subjective: Improving Patient seen and examined at bedside. No family at bedside. Chart reviewed and case discussed with nursing staff. Reports slight improvement pain, though still complaining of left-sided neck pain radiating down to shoulder. Improved breathing, currently on 3 L oxygen via nasal cannula, which is when she is on at home. Review of Systems 10-point ROS is otherwise unremarkable Physical Examination - Vital Signs Temperature: 97.6 F Blood Pressure: 132/66 Pulse: 87 Respirations: 16 Pulse Ox (%): 96 - Physical Exam General: Alert, In no apparent distress, Oriented x3 HEENT: Atraumatic, PERRLA, EOMI Neck: Supple, JVD not distended Respiratory: Clear to auscultation bilaterally, Normal air movement Cardiovascular: Regular rate/rhythm, Normal S1 S2 Gastrointestinal: Normal bowel sounds, No tenderness Musculoskeletal: No tenderness Integumentary: No rashes Neurological: Normal speech, Normal tone, Normal affect Lymphatics: No axilla or inguinal lymphadenopathy - Studies Laboratory Data (last 24 hrs) 12/08/18 15:18: PT 11.5, INR 0.97 12/08/18 15:18: WBC 8.9, Hgb 13.1, Hct 39.5, Plt Count 193 12/08/18 15:18: Sodium 138, Potassium 4.1, BUN 16, Creatinine 0.75, Glucose 345 H, Magnesium 1.9, Total Bilirubin 0.3, AST < 3 L, ALT 12, Alkaline Phosphatase 96, Lipase 191 Microbiology Data (last 24 hrs): 12/08/18 17:25 Nasopharnyx Influenza Type A Antigen Screen - Final 12/08/18 17:25 Nasopharnyx Influenza Type B Antigen Screen - Final Assessment And Plan - Current Problems (Diagnosis) (1) COPD exacerbation Current Visit: Yes Status: Acute (2) Neck pain Current Visit: Yes Status: Chronic (3) CHF (congestive heart failure) Onset Date: 09/21/16 Current Visit: No Status: Chronic Qualifiers: Qualified Code(s): I50.32 - Chronic diastolic (congestive) heart failure (4) COPD (chronic obstructive pulmonary disease) Onset Date: 08/07/16 Current Visit: No Status: Chronic Qualifiers: COPD type: chronic bronchitis Chronic bronchitis type: unspecified Qualified Code(s): J42 - Unspecified chronic bronchitis (5) Chronic pain Onset Date: 10/13/16 Current Visit: No Status: Chronic Qualifiers: Chronic pain type: chronic pain syndrome (6) HTN (hypertension) Onset Date: 08/07/16 Current Visit: No Status: Chronic Qualifiers: Hypertension type: essential hypertension Qualified Code(s): I10 - Essential (primary) hypertension (7) Hypomagnesemia Onset Date: 09/21/16 Current Visit: Yes Status: Acute (8) Low blood pressure Onset Date: 07/17/14 Current Visit: No Status: Acute Qualifiers: Hypotension type: unspecified hypotension type Qualified Code(s): I95.9 - Hypotension, unspecified (9) Diabetes mellitus Current Visit: Yes Status: Acute Qualifiers: Diabetes mellitus type: type 2 Diabetes mellitus terminal operator insulin use: without terminal operator use Diabetes mellitus complication status: with neurologic complications Diabetes mellitus complication detail: with unspecified neuropathy Qualified Code(s): E11.40 - Type 2 diabetes mellitus with diabetic neuropathy, unspecified - Plan COPD exacerbation on chronic steroids and oxygen Improved Continue increased prednisone dose, COPD medications. Continue to provide oxygen as needed to maintain sats above 90%. With will repeat a chest x-ray tomorrow. Pulmonology consulted, recommendations appreciated. Neck pain with history of degenerative disc and joint disease: Patient continues to complain of left-sided neck pain, improved. CT cervical spine negative for, no neurological symptoms on physical exam. Patient states that she does have chronic pain, this seems to be a little different than her chronic pain. Will continue pain management lidocaine patch at this time. Will get physical therapy to evaluate patient Patient's chronic pain can be further addressed as outpatient for pain management. Hypertension: Overnight, blood pressure on the lower end. Will continue to manage and make medication changes as needed. Chronic diastolic CHF: Continue 1500 cc per day fluid restriction and oral diuretic therapy. Diabetes mellitus type 2: Continue sliding scale and Accu-Cheks. Will adjust as needed. Diabetic neuropathy with chronic pain: Continue pain management Obesity, BMI 28.7 Chronic headaches DVT prophylaxis: Lovenox GI prophylaxis: None Diet: 1800 diabetic Disposition: Pending symptomatic improvement and physical therapy evaluation. Will continue to monitor blood pressure overnight, likely discharge home in the next 24-48 hr Discharge Plan: Home Plan to discharge in: 24 Hours
[2018-12-09 12:06] LABS: Blood Morphology Comment NOTED (NOT SEEN); Platelet Estimate ADEQ; Platelets, Giant RARE; Polychromasia 1+
[2018-12-09] MEDS: HYDROCODONE/APAP 7.5/325 MG TAB PO PRN (12:33)
[2018-12-09] MEDS ORDERED: GLUCAGON 1 MG/VIAL IM PRN (12:45)
[2018-12-09] MEDS ORDERED: D50W 25 GM/50 ML SYRINGE IV PRN (12:45)
[2018-12-09] MEDS: ONDANSETRON 4 MG/2 ML VIAL IV PRN (15:02)
--- NOTE | 2018-12-09 17:26 | EKG ---
Test Date: 2018-12-09 Test Time: 16:24:20 Fire [employer] Marine: ROGELIO MEASUREMENT RESULTS: Intervals: Rate: 76 SC: 130 QRSD: 134 QT: 398 QTc: 447 [place]: P: 53 SC: 130 QRS: 56 T: 33 INTERPRETIVE STATEMENTS: Normal sinus rhythm Right bundle branch block Abnormal ECG Compared to ECG 12/08/2018 15:43:13 No significant changes Electronically Signed On 12-09-18 17:25:45 CDT by Fransisco Khan
[2018-12-09] MEDS: ATORVASTATIN 10 MG TAB PO SCH (21:13)
[2018-12-09] MEDS: ALPRAZOLAM 1 MG TABLET PO PRN (22:00)
[2018-12-10 07:10] LABS: Absolute Lymphocytes (CBC) 1.5 K/uL (0.7-4.9); Absolute Monocytes 0.4 K/uL (0.1-1.3); Absolute Neutrophil 7.3 K/uL (1.8-8.0); Basophils % 0.1 % (0-1.3); Hematocrit 38.2 % (36.0-45.0); Lymphocytes % 16.3 % (15.3-44.8); MPV 9.1 fL (7.6-11.3); RBC Red Blood Cell Count 4.76 M/uL (3.86-4.86)
[2018-12-10] MEDS: INSULIN -REGULAR HUMAN 50 UNIT/0.5 ML ML SQ SCH ×3 (07:49→15:58)
[2018-12-10] MEDS: ARFORMOTEROL TARTRATE 15 MCG/2 ML VIAL.NEB NEB SCH (08:05)
[2018-12-10] MEDS: HYDROCODONE/APAP 7.5/325 MG TAB PO PRN ×2 (08:21→15:58)
[2018-12-10] MEDS: PREGABALIN 150 MG CAP PO SCH (08:21)
[2018-12-10] MEDS: CLOPIDOGREL 75 MG TABLET PO SCH (08:21)
[2018-12-10] MEDS: predniSONE 20 MG TAB PO SCH (08:22)
[2018-12-10] MEDS: ASPIRIN 81 MG CHEWABLE TABLET PO SCH (08:22)
[2018-12-10] MEDS: FUROSEMIDE 20 MG TABLET PO SCH (08:22)
[2018-12-10] MEDS: levoFLOXacin 500 MG TAB PO SCH (08:22)
[2018-12-10] MEDS: LIDOCAINE 5% PATCH TOP SCH (08:23)
[2018-12-10] MEDS: ENOXAPARIN 40 MG/0.4 ML SQ SCH (08:23)
[2018-12-10 08:24] LABS: Magnesium 2.1 mg/dL (1.8-2.4); Potassium 4.7 mmol/L (3.5-5.1)
[2018-12-10] MEDS: FAMOTIDINE 20 MG TAB PO SCH (08:25)
[2018-12-10 08:38] VITALS: O2SAT 95
[2018-12-10] MEDS: ONDANSETRON 4 MG/2 ML VIAL IV PRN (12:16)
[2018-12-10 16:50] VITALS: BP 125/60; TEMP 97
== END 2018-12-10 17:50 | disposition home health service (06) ==
LOC: ER 13:46 → ERHOLD 17:27 → 2ND 19:49
PROVIDERS: ADMIT Family Medicine; ATTEND Family Medicine
DX: J44.1 Chronic obstructive pulmonary disease with (acute) exacerbation (principal); M54.2 Cervicalgia; I11.0 Hypertensive heart disease with heart failure; I50.32 Chronic diastolic (congestive) heart failure; E83.42 Hypomagnesemia; E11.40 Type 2 diabetes mellitus with diabetic neuropathy, unspecified; R51 Headache
CPT/HCPCS: 93005 ×2; 87040 ×2; 85025 ×3; 80048 ×3; 36415 ×2; 83735 ×3; 82947; 85610; 82962 ×9; 80076; 81003; 84484; 83690; 84145; 83880; 86140; 87804 ×2; 70450; 72125; 71045; 93880; 97162; 94640 ×2; 99285; J1650 ×2; J3010; J3475; J1100; J7605 ×4; J0696; J2930; J2405 ×3; G0378 ×2; 81015; J7512

== ENCOUNTER 2018-12-19 15:10 | Observation (INO) | payer OTHER ==
[2018-12-19 15:53] LABS: Absolute Lymphocytes (CBC) 2.3 K/uL (0.7-4.9); Absolute Monocytes 0.5 K/uL (0.1-1.3); Basophils % 0.6 % (0-1.3); Eosinophils % 1.5 % (0-4.4); Hematocrit 39.6 % (36.0-45.0); Lymphocytes % 29.1 % (15.3-44.8); MPV 9.2 fL (7.6-11.3); Monocytes % 5.7 % (3.3-12.3); RBC Red Blood Cell Count 4.95 M/uL (3.86-4.86)
[2018-12-19 16:00] LABS: Protime INR 0.99
[2018-12-19] MEDS ORDERED: METHOCARBAMOL 1,000 MG in NA CHLORIDE 0.9% 100 ML IV ONE (16:00)
[2018-12-19] MEDS ORDERED: ASPIRIN 81 MG CHEWABLE TABLET ONE (16:01)
[2018-12-19] MEDS ORDERED: IPRATROPIUM BROM 0.5MG/2.5ML ONE (16:02)
[2018-12-19] MEDS ORDERED: ALBUTEROL 2.5 MG/3 ML NEB SOL ONE (16:02)
[2018-12-19 16:14] LABS: ALT/SGPT 15 U/L (12-78); AST/SGOT 4 U/L (15-37); Albumin 3.4 g/dL (3.4-5.0); Alkaline Phosphatase 92 U/L (45-117); BUN Blood Urea Nitrogen 19 mg/dL (7-18); Bicarbonate 29 mmol/L (21-32); Bilirubin Direct < 0.1 mg/dL (0-0.2); Bilirubin Total 0.4 mg/dL (0.2-1.0); Glucose Level 357 mg/dL (74-106); Magnesium 1.7 mg/dL (1.8-2.4); NT PRO-BNP 126 pg/mL (<125); Potassium 4.1 mmol/L (3.5-5.1); Protein, Total 7.5 g/dL (6.4-8.2); Sodium Level 137 mmol/L (136-145); Troponin (Emerg Dept Use Only) < 0.02 ng/mL (0.0-0.045)
[2018-12-19] MEDS ORDERED: MAGNESIUM SULFATE 1 gm IVPB 1 GM/100 ML BAG IV ONE (16:51)
--- NOTE | 2018-12-19 17:15 | RAD REPORT ---
EXAM DESCRIPTION: RAD - Chest Single View - 12/19/2018 5:01 pm CLINICAL HISTORY: DYSPNEA Chest pain. COMPARISON: Chest Single View dated 12/08/2018; Chest Single View dated 10/18/2018; Chest Pa And Lat (2 Views) dated 06/21/2018; Chest Single View dated 06/20/2018 FINDINGS: Portable technique limits examination quality. Hazy left basilar lung opacity is present likely a combination of infiltrate and pleural effusion, mo st compatible with pneumonia. Findings appear mildly progressive since 12/08/2018 study. The heart is normal in size. No displaced fractures. IMPRESSION: Mild progression left basilar pneumonia since comparative study.
--- NOTE | 2018-12-19 17:46 | EDPHYS ---
Physician Documentation [facility] Name: Nakia Turcios Age: 62 yrs Sex: Female : 1955 Arrival Date: 12/19/2018 Time: 15:12 Bed 5 Private MD: Erasmo Jimenez ED Physician Sascha Singletary HPI: 12/19 16:45 This 62 yrs old Female presents to ER via Ambulatory with complaints of Chest jr8 Pain, Shortness Of Breath. 16:45 The patient or guardian reports chest pain that is located primarily in the anterior jr8 chest wall, left. Onset: acutely, today. The pain does not radiate. Associated signs and symptoms: Pertinent positives: shortness of breath. The chest pain is described as a pressure. Duration: The patient or guardian reports multiple episodes. Modifying factors: The symptoms are alleviated by nothing. the symptoms are aggravated by cough, deep breath. Severity of pain: At its worst the pain was moderate in the emergency department the pain is unchanged. It is unknown whether or not the patient has had similar symptoms in the past. The patient has been recently seen by a physician:. Patient stated that she has been having left sided neck and shoulder pain for past couple of weeks. Was admitted and diagnosed with pneumonia but did not take care of her shoulder and neck. Came to day for shoulder and neck pain along with chest pain that started today . Historical: - Allergies: 15:31 Codeine (Anaphylaxis); ph 15:31 FLU VACCINE; ph - Home Meds: 15:45 Albuterol Inhl 4 times per day [Active]; alprazolam 1 mg Oral tab 3 times per day for hj Anxiety [Active]; aspirin 81 mg Oral chew 1 tab once daily [Active]; atorvastatin 20 mg Oral tab 1 tab nightly [Active]; bupropion HCl 150 mg Oral TbER 1 tab 2 times per day [Active]; clopidogrel 75 mg Oral tab [Active]; Daliresp 500 mcg Oral tab 1 tab once daily [Active]; divalproex 250 mg Oral Tb24 2 tabs once daily [Active]; Insulin: Novolin 70/30 130 units in am and 105 at night Sub-Q [Active]; lisinopril 10 mg Oral tab 1 tab once daily [Active]; Lyrica 300mg Oral 2 times per day [Active]; montelukast 10 mg Oral tab once daily [Active]; OMEGA-3 daily [Active]; pravastatin 40 mg Oral tab 1 tab once daily [Active]; sertraline 100 mg Oral tab 1 tab once daily [Active]; Tessalon Perles 100 mg Oral cap 2 caps 3 times per day for Cough [Active]; Zithromax 250 mg Oral tab 1 tab once daily [Active]; - PMHx: 15:31 CHF; COPD; Diabetes - IDDM; Hypertension; neuropathy; ph - PSHx: 15:31 Knee surgery; Appendectomy; wrist; R foot; cataract; pain pump; ph - Immunization history:: Adult Immunizations up to date. - Social history:: Smoking status: Patient uses tobacco products, Patient/guardian denies using alcohol. - Ebola Screening: : Patient negative for fever greater than or equal to 101.5 degrees Fahrenheit, and additional compatible Ebola Virus Disease symptoms Patient denies exposure to infectious person Patient denies travel to an Ebola-affected area in the 21 days before illness onset. ROS: 16:47 Constitutional: Negative for fever, chills, and weight loss. jr8 16:47 Neck: Positive for pain with movement, pain at rest, stiffness, tenderness, Negative for bony tenderness. 16:47 Cardiovascular: Positive for chest pain, Negative for edema, orthopnea, palpitations, paroxysmal nocturnal dyspnea. 16:47 Respiratory: Positive for shortness of breath, wheezing. 16:47 Back: Positive for pain at rest, pain with movement, of the left trapezius. 16:47 All other systems are negative. Exam: 16:53 Head/Face: Normocephalic, atraumatic. Eyes: Pupils equal round and reactive to light, jr8 extra-ocular motions intact. Lids and lashes normal. Conjunctiva and sclera are non-icteric and not injected. Cornea within normal limits. Periorbital areas with no swelling, redness, or edema. ENT: Nares patent. No nasal discharge, no septal abnormalities noted. Tympanic membranes are normal and external auditory canals are clear. Oropharynx with no redness, swelling, or masses, exudates, or evidence of obstruction, uvula midline. Mucous membranes moist. Chest/axilla: Normal chest wall appearance and motion. Nontender with no deformity. No lesions are appreciated. Cardiovascular: Regular rate and rhythm with a normal S1 and S2. No gallops, murmurs, or rubs. Normal PMI, no JVD. No pulse deficits. Respiratory: Lungs have equal breath sounds bilaterally, clear to auscultation and percussion. No rales, rhonchi or wheezes noted. No increased work of breathing, no retractions or nasal flaring. Abdomen/GI: Soft, non-tender, with normal bowel sounds. No distension or tympany. No guarding or rebound. No evidence of tenderness throughout. Skin: Warm, dry with normal turgor. Normal color with no rashes, no lesions, and no evidence of cellulitis. MS/ Extremity: Pulses equal, no cyanosis. Neurovascular intact. Full, normal range of motion. Neuro: Awake and alert, GCS 15, oriented to person, place, time, and situation. Cranial nerves II-XII grossly intact. Motor strength 5/5 in all extremities. Sensory grossly intact. Cerebellar exam normal. Normal gait. 16:53 Neck: External neck: tenderness, that is moderate, of the left mid cervical area, left trapezius and left side of neck, C-spine: appears grossly normal, no vertebral tenderness, no crepitus, Thyroid: appears normal, Trachea: is midline with no obvious abnormalities, ROM/movement: pain, that is moderate, with rotation to the left, Lymph nodes: no appreciated lymphadenopathy. 16:53 Back: pain, that is moderate, of the left trapezius, ROM is painful, with all movement, normal spinal alignment noted, CVA tenderness, is absent, vertebral tenderness, is not appreciated, muscle spasm, is appreciated in the left trapezius. Vital Signs: 15:30 BP 133 / 73; Pulse 81; Resp 22; Temp 97.7(TE); Pulse Ox 97% on 3 lpm NC; Weight 70.31 ph kg; Height 5 ft. 3 in. (160.02 cm); Pain 8/10; 16:46 BP 104 / 56; Pulse 78; Resp 18; Pulse Ox 96% 3 lpm ; hj 17:03 BP 107 / 49; Pulse 92; Resp 18; Pulse Ox 96% on 3 lpm NC; hj 18:55 BP 151 / 62; Pulse 88; Resp 18; Pulse Ox 96% on 3 lpm NC; hj 19:06 BP 145 / 70; Pulse 86; Resp 18; Pulse Ox 98% on R/A; ea 19:37 BP 149 / 75; Pulse 86; Resp 20; Temp 97.6(O); Pulse Ox 96% on 3 lpm NC; lp1 20:15 BP 114 / 91; Pulse 87; Resp 19; Pulse Ox 96% on 3 lpm NC; lp1 15:30 Body Mass Index 27.46 (70.31 kg, 160.02 cm) ph 15:30 pt on home o2 at 3L cont ph MDM: 15:20 Patient medically screened. [facility] 17:44 Data reviewed: vital signs, nurses notes, lab test result(s), EKG, radiologic studies, jr8 plain films. Data interpreted: Pulse oximetry: on room air is 96 %. Interpretation: normal. Counseling: I had a detailed discussion with the patient and/or guardian regarding: the historical points, exam findings, and any diagnostic results supporting the discharge/admit diagnosis, lab results, radiology results, the need for further work-up and treatment in the hospital. 12/19 15:37 Order name: Basic Metabolic Panel; Complete Time: 16:37 [facility] 12/19 15:37 Order name: CBC with Diff; Complete Time: 16:37 [facility] 12/19 15:37 Order name: LFT's; Complete Time: 16:37 [facility] 12/19 15:37 Order name: Magnesium; Complete Time: 16:37 [facility] 12/19 15:37 Order name: NT PRO-BNP; Complete Time: 16:37 [facility] 12/19 15:37 Order name: PT-INR; Complete Time: 16:37 [facility] 12/19 15:37 Order name: Troponin (emerg Dept Use Only); Complete Time: 16:37 [facility] 12/19 15:37 Order name: XRAY Chest (1 view); Complete Time: 17:31 [facility] 12/19 17:47 Order name: Blood Culture Adult (2) [facility] 12/19 17:49 Order name: Procalcitonin; Complete Time: 18:10 [facility] 12/19 17:49 Order name: Lactate; Complete Time: 18:10 [facility] 12/19 18:40 Order name: Urine Dipstick--Ancillary (enter results); Complete Time: 18:10 12/19 18:40 Order name: Urine --Ancillary (enter results); Complete Time: 18:10 12/19 18:50 Order name: Urine Microscopic Only 12/19 15:37 Order name: EKG; Complete Time: 15:38 [facility] 12/19 15:37 Order name: Cardiac monitoring; Complete Time: 15:43 [facility] 12/19 15:37 Order name: EKG - Nurse/Tech; Complete Time: 15:43 [facility] 12/19 15:37 Order name: IV Saline Lock; Complete Time: 15:53 [facility] 12/19 15:37 Order name: Labs collected and sent; Complete Time: 15:53 [facility] 12/19 15:37 Order name: O2 Per Protocol; Complete Time: 15:43 [facility] 12/19 15:37 Order name: O2 Sat Monitoring; Complete Time: 15:43 [facility] 12/19 17:52 Order name: CT Chest W/ Con; Complete Time: 18:10 jr8 Administered Medications: 07:47 Drug: Valium 2 mg Route: IVP; Site: right antecubital; hj 18:01 Follow up: Response: No adverse reaction; Anxiety decreased hj 15:49 Drug: Aspirin Chewable Tablet 324 mg Route: PO; hj 16:37 Follow up: Response: No adverse reaction hj 15:49 Drug: Albuterol - atroVENT (3:1) (2.5 mg - 0.5 mg) 3 ml Route: Nebulizer; hj 16:38 Follow up: Response: No adverse reaction hj 16:04 Drug: Robaxin 1 grams Route: IVPB; Infused Over: 1 hrs; Site: right antecubital; hj 16:37 Follow up: IV Status: Completed infusion hj 16:55 Drug: Magnesium Sulfate 1 grams Route: IVPB; Infused Over: 1 hrs; Site: right hj antecubital; 17:49 Follow up: IV Status: Completed infusion hj 17:33 Drug: Zosyn 3.375 grams Route: IVPB; Infused Over: 60 mins; Site: right antecubital; hj 17:51 Follow up: IV Status: Infusion continued hj Disposition: 12/19/18 17:45 Hospitalization ordered by Jose Eduardo Fowler for Observation. Preliminary diagnosis is Pneumonia due to other specified bacteria. - Bed requested for Telemetry/MedSurg (observation). - Status is Observation. lp1 - Condition is Stable. - Problem is new. - Symptoms have improved. UTI on Admission? No Addendum: 12/23/2018 07:03 Co-signature as Attending Physician, Sascha Singletary MD. r n Signatures: Dispatcher [employer] EDMS Sascha Singletary MD MD rn Pena, Laura, RN RN lp1 Nelson Grigsby, PA PA jr8 Maribel Hodgson, RN RN Jay Baig, RN RN Jo Tapia RN RN cg Corrections: (The following items were deleted from the chart) 12/19 17:52 17:45 Hospitalization Ordered by [facility] DO for Inpatient Admission. Preliminary jr8 diagnosis is Pneumonia due to other specified bacteria. Bed requested for Telemetry/MedSurg (Inpatient). Status is Inpatient Admission. Condition is Stable. Problem is new. Symptoms have improved. UTI on Admission? No. jr8 19:31 17:52 12/19/2018 17:45 [facility]. cg Preliminary diagnosis is Pneumonia due to other specified bacteria. Bed requested for Telemetry/MedSurg (observation). Status is Observation. Condition is Stable. Problem is new. Symptoms have improved. UTI on Admission? No. jr8 20:24 19:31 12/19/2018 17:45 Hospitalization Ordered by [facility] DO for Observation. lp1 Preliminary diagnosis is Pneumonia due to other specified bacteria. Bed requested for Telemetry/MedSurg (observation). Status is Observation. Condition is Stable. Problem is new. Symptoms have improved. UTI on Admission? No. cg
--- NOTE | 2018-12-19 17:46 | ER ---
Nurse's Notes [facility] Name: Nakia Turcios Age: 62 yrs Sex: Female : 1955 Arrival Date: 12/19/2018 Time: 15:12 Bed 5 Private MD: Erasmo Jimenez Diagnosis: Pneumonia due to other specified bacteria Presentation: 12/19 15:28 Presenting complaint: Patient states: L sided chest pressure that began 1 hour PAT, ph does not radiate, worse w/ deep breathing, denies SOB, N/V, recently hospitalized for L sided pneumonia. Transition of care: patient was not received from another setting of care. Onset of symptoms was December 19, 2018. Risk Assessment: Do you want to hurt yourself or someone else? Patient reports no desire to harm self or others. Initial Sepsis Screen: Does the patient meet any 2 criteria? No. Patient's initial sepsis screen is negative. Does the patient have a suspected source of infection? No. Patient's initial sepsis screen is negative. Care prior to arrival: None. 15:28 Method Of Arrival: Ambulatory 15:28 Acuity: JESUSITA 3 ph Triage Assessment: 15:45 General: Appears in no apparent distress. uncomfortable, Behavior is calm, cooperative, hj appropriate for age. Pain: Complains of pain in chest. Cardiovascular: Capillary refill < 3 seconds Patient's skin is warm and dry. Historical: - Allergies: 15:31 Codeine (Anaphylaxis); ph 15:31 FLU VACCINE; ph - Home Meds: 15:45 Albuterol Inhl 4 times per day [Active]; alprazolam 1 mg Oral tab 3 times per day for hj Anxiety [Active]; aspirin 81 mg Oral chew 1 tab once daily [Active]; atorvastatin 20 mg Oral tab 1 tab nightly [Active]; bupropion HCl 150 mg Oral TbER 1 tab 2 times per day [Active]; clopidogrel 75 mg Oral tab [Active]; Daliresp 500 mcg Oral tab 1 tab once daily [Active]; divalproex 250 mg Oral Tb24 2 tabs once daily [Active]; Insulin: Novolin 70/30 130 units in am and 105 at night Sub-Q [Active]; lisinopril 10 mg Oral tab 1 tab once daily [Active]; Lyrica 300mg Oral 2 times per day [Active]; montelukast 10 mg Oral tab once daily [Active]; OMEGA-3 daily [Active]; pravastatin 40 mg Oral tab 1 tab once daily [Active]; sertraline 100 mg Oral tab 1 tab once daily [Active]; Tessalon Perles 100 mg Oral cap 2 caps 3 times per day for Cough [Active]; Zithromax 250 mg Oral tab 1 tab once daily [Active]; - PMHx: 15:31 CHF; COPD; Diabetes - IDDM; Hypertension; neuropathy; ph - PSHx: 15:31 Knee surgery; Appendectomy; wrist; R foot; cataract; pain pump; ph - Immunization history:: Adult Immunizations up to date. - Social history:: Smoking status: Patient uses tobacco products, Patient/guardian denies using alcohol. - Ebola Screening: : Patient negative for fever greater than or equal to 101.5 degrees Fahrenheit, and additional compatible Ebola Virus Disease symptoms Patient denies exposure to infectious person Patient denies travel to an Ebola-affected area in the 21 days before illness onset. Screenin:45 Abuse screen: Denies threats or abuse. Denies injuries from another. Nutritional hj screening: No deficits noted. Tuberculosis screening: No symptoms or risk factors identified. Fall Risk None identified. Assessment: 15:45 Pain: Pain does not radiate. Pain began 1 hour ago. hj 15:45 General: Appears in no apparent distress. uncomfortable, Behavior is calm, cooperative, hj appropriate for age. Neuro: Level of Consciousness is awake, alert, obeys commands, Oriented to person, place, time, situation, Appropriate for age. Cardiovascular: Capillary refill < 3 seconds Patient's skin is warm and dry. Cardiovascular: Reports chest pain. Respiratory: Airway is patent Respiratory effort is even, unlabored, Respiratory pattern is regular, symmetrical. Respiratory: No deficits noted. Reports Breath sounds with crackles Breath sounds with wheezes Onset: The symptoms/episode began/occurred this morning. GI: No signs and/or symptoms were reported involving the gastrointestinal system. : No signs and/or symptoms were reported regarding the genitourinary system. EENT: No signs and/or symptoms were reported regarding the EENT system. Derm: No signs and/or symptoms reported regarding the dermatologic system. Musculoskeletal: No signs and/or symptoms reported regarding the musculoskeletal system. 15:57 Reassessment: Patient and/or family updated on plan of care and expected duration. Pain hj level reassessed. Patient is alert, oriented x 3, equal unlabored respirations, skin warm/dry/pink. awaiting results and POC;. 16:46 Reassessment: Patient and/or family updated on plan of care and expected duration. Pain hj level reassessed. Patient is alert, oriented x 3, equal unlabored respirations, skin warm/dry/pink. Patient states feeling better. Patient states symptoms have improved. 17:03 Reassessment: Patient and/or family updated on plan of care and expected duration. Pain hj level reassessed. Patient is alert, oriented x 3, equal unlabored respirations, skin warm/dry/pink. robaxin infusing; awaiting POC;. 18:56 Reassessment: Patient and/or family updated on plan of care and expected duration. Pain hj level reassessed. Patient is alert, oriented x 3, equal unlabored respirations, skin warm/dry/pink. zosyn infusing; awaiting room placement;. 19:30 Reassessment: Patient appears in no apparent distress at this time. Patient is alert, lp1 oriented x 3, equal unlabored respirations, skin warm/dry/pink. Patient aware of pending admission. Respiratory: Breath sounds are diminished bilaterally. Vital Signs: 15:30 BP 133 / 73; Pulse 81; Resp 22; Temp 97.7(TE); Pulse Ox 97% on 3 lpm NC; Weight 70.31 ph kg; Height 5 ft. 3 in. (160.02 cm); Pain 8/10; 16:46 BP 104 / 56; Pulse 78; Resp 18; Pulse Ox 96% 3 lpm ; hj 17:03 BP 107 / 49; Pulse 92; Resp 18; Pulse Ox 96% on 3 lpm NC; hj 18:55 BP 151 / 62; Pulse 88; Resp 18; Pulse Ox 96% on 3 lpm NC; hj 19:06 BP 145 / 70; Pulse 86; Resp 18; Pulse Ox 98% on R/A; ea 19:37 BP 149 / 75; Pulse 86; Resp 20; Temp 97.6(O); Pulse Ox 96% on 3 lpm NC; lp1 20:15 BP 114 / 91; Pulse 87; Resp 19; Pulse Ox 96% on 3 lpm NC; lp1 15:30 Body Mass Index 27.46 (70.31 kg, 160.02 cm) ph 15:30 pt on home o2 at 3L cont ph ED Course: 15:12 Patient arrived in ED. mr 15:12 Erasmo Jimenez MD is Private Physician. mr 15:20 Nelson Grigsby PA is PHCP. jr8 15:20 Sascha Singletary MD is Attending Physician. jr8 15:20 Jay Baig, ELSI is Primary Nurse. hj 15:30 Triage completed. ph 15:31 Arm band placed on Patient placed in an exam room, on a stretcher, on oxygen, on ph manager monitoring, on pulse oximetry. 15:39 EKG done, by poultry field service technician. reviewed by Nelson DUDLEY. sm3 15:45 Patient has correct armband on for positive identification. Placed in gown. Bed in low hj position. Call light in reach. Side rails up X2. Adult w/ patient. manager monitoring on. Pulse ox on. NIBP on. 15:45 Patient maintains SpO2 saturation greater than 95% on room air. hj 17:02 XRAY Chest (1 view) In Process Unspecified. EDMS 17:44 Jose Eduardo Fowler DO is Hospitalizing Provider. jr8 17:49 Blood Culture Adult (2) Sent. hj 18:19 Inserted saline lock: 22 gauge in left forearm, using aseptic technique. pc1 18:40 CT Chest W/ Con In Process Unspecified. EDMS 19:32 No provider procedures requiring assistance completed. Patient admitted, IV remains in lp1 place. 22g to R AC remains in place. Administered Medications: 07:47 Drug: Valium 2 mg Route: IVP; Site: right antecubital; hj 18:01 Follow up: Response: No adverse reaction; Anxiety decreased hj 15:49 Drug: Aspirin Chewable Tablet 324 mg Route: PO; hj 16:37 Follow up: Response: No adverse reaction hj 15:49 Drug: Albuterol - atroVENT (3:1) (2.5 mg - 0.5 mg) 3 ml Route: Nebulizer; hj 16:38 Follow up: Response: No adverse reaction hj 16:04 Drug: Robaxin 1 grams Route: IVPB; Infused Over: 1 hrs; Site: right antecubital; hj 16:37 Follow up: IV Status: Completed infusion hj 16:55 Drug: Magnesium Sulfate 1 grams Route: IVPB; Infused Over: 1 hrs; Site: right hj antecubital; 17:49 Follow up: IV Status: Completed infusion hj 17:33 Drug: Zosyn 3.375 grams Route: IVPB; Infused Over: 60 mins; Site: right antecubital; hj 17:51 Follow up: IV Status: Infusion continued hj Outcome: 17:45 Decision to Hospitalize by Provider. jr8 19:32 Condition: stable lp1 19:32 Instructed on the need for admit. 20:06 Admitted to Tele accompanied by tech, via wheelchair, room 423, with chart, Report fc called to Shawna CALZADA 20:24 Patient left the ED. lp1 Signatures: Dispatcher [employer] EDLA LeoTana Terrence, Pat, RN RN Darby Bautista RN RN lp1 Nelson Grigsby PA PA jr8 Maribel Hodgson RN ELSI Jay Baig RN ELSI Cinthya Finch RN Alicia Botello ea 3 Parag Bhatt pc1 Corrections: (The following items were deleted from the chart) 17:04 16:46 BP 104 / 56; Pulse 78bpm; Resp 18bpm; Pulse Ox 96% RA; hj hj 19:40 19:32 Patient admitted, IV remains in place. lp1 lp1
[2018-12-19] MEDS ORDERED: PIPER/TAZO/NS 3.375gm 3.375 GM/100 ML BAG ONE (17:52)
[2018-12-19] MEDS ORDERED: DIAZEPAM 10 MG/2 ML INJ SYRINGE ONE (18:08)
--- NOTE | 2018-12-19 18:49 | RAD REPORT ---
EXAM DESCRIPTION: CT - Thorax W/ Con CLINICAL HISTORY: Chest pain Dyspnea with worsening of pneumonia COMPARISON: THORAX WO CONTRAST dated 07/18/2014; Chest Single View dated 12/19/2018 FINDINGS: Mild alveolar lung opacity is present in the left lung base and inferior lingula compatibl e with mild pneumonia. Subtle areas of ground-glass opacity/ atelectasis also present in both upper l obes anteriorly. No pleural thickening or pleural effusion. No pneumothorax. Mild adenopathy is seen in the mediastinum in both jc, largest in the sub- carinal space measuring 15 mm. No concerning bony finding. No gross upper abdominal finding. All CT scans are performed using dose optimization technique as appropriate and may include automated exposure control or mA/KV adjustment according to patient size. IMPRESSION: Areas of ground-glass/alveolar lung opacity in the inferior lingula and left lower lobe likely represents mild pneumonia.Mild hilar and mediastinal lymphadenopathy is present.
[2018-12-19 19:49] LABS: Urine Blood NEGATIVE (NEG); Urine Glucose 3+ (NEG); Urine Protein NEGATIVE (NEG); Urine Specific Gravity 1.025 (1.005-1.030); Urine pH 5.5 (5.0-7.0)
--- NOTE | 2018-12-19 19:59 | P.HP ---
Certification for Inpatient Patient admitted to: Observation With expected LOS: <2 Midnights Practitioner: I am a practitioner with admitting privileges, knowledge of patient current condition, hospital course, and medical plan of care. Services: Services provided to patient in accordance with Admission requirements found in Title 42 Section 412.3 of the Code of Federal Regulations Patient History Date of Service: 12/19/18 Reason for admission: COPD exacerbation History of Present Illness: Ms Turcios is a 62 years old woman with multiple medical problems, including COPD with home oxygen, who was admitted to the hospital about 2 weeks ago for COPD exacerbation, she was discharged on oral antibiotics and steroids. She states that was doing ok, had some cough and SOB but not different than her usual state. She sometimes felt like has fever, but not measure her temperature. She went to see her PCP for follow up today. In the office, she start coughing, and complained of left side chest pain, radiated to her left side of the neck and left shoulder. The pain is worse with deep breathing. Her PCP sent the patient to ER for further evaluation. At arrival, the patient was afebrile, the chest pain is on and off, at my encounter she was pain free. Lab work remarkable for normal WBC count, normal procalcitonin but elevated lactate. CT chest shows left base opacity, which may represent mild pneumonia. Allergies codeine [Codeine] Allergy (Intermediate, Verified 02/03/17 19:52) Itching/Hives/Rash flu vaccine Allergy (Uncoded 02/03/17 19:52) Anaphylaxis Home medications list reviewed: Yes Home Medications: Aspirin 81 mg PO DAILY 01/30/12 Divalproex ER [Depakote *ER] 250 mg PO BID 01/19/15 Clopidogrel Bisulfate [Plavix] 1 tab PO DAILY 09/21/16 Lisinopril [Zestril] 10 mg PO DAILY 09/21/16 Pregabalin [Lyrica] 300 cap PO BID 09/21/16 Sertraline [Zoloft*] 1 tab PO DAILY 09/21/16 Insulin 70/30 NPH/Reg Human [Novolin 70/30*] 0 unit SQ SEECOM 02/03/17 Montelukast [Singulair*] 1 tab PO BEDTIME 10/21/17 Pravastatin Sodium 40 mg PO DAILY 10/21/17 Tiotropium [place] [Spiriva] 1 puff PO DAILY 10/21/17 Albuterol Sulfate [Proventil Hfa] 2 inhaler IH QID PRN 11/22/17 ALPRAZolam [Xanax*] 1 mg PO BEDTIME tab 06/19/18 Albuterol Neb [Proventil 0.083% Neb Soln] 2.5 mg NEB TID PRN #90 amp 06/19/18 Arformoterol Tartrate [Brovana] 15 mcg NEB BIDRESP #60 vial.neb 06/19/18 Furosemide [Lasix*] 20 mg PO DAILY #30 tab 06/19/18 Loperamide [Imodium*] 2 mg PO TID PRN 06/19/18 Nicotine [Nicoderm*] 21 mg TD BEDTIME #30 patch.td24 06/19/18 [place]-3 Fatty Acids/Fish Oil [Eql [place]-3 Fish Oil 1,000 mg] 1 each PO DAILY 12/02 Tizanidine [Zanaflex*] 4 mg PO BID PRN tab 06/19/18 Zinc 50 mg PO DAILY 06/19/18 predniSONE [Prednisone*] 20 mg PO SEECOM #15 tab 06/19/18 traMADol HCL [Ultram*] 50 mg PO Q12HP PRN tab 06/19/18 levoFLOXacin [Levaquin] 500 mg PO DAILY #5 tab 12/10/18 - Past Medical/Surgical History Diabetic: Yes -: Neuropathy -: Diabetes mellitus type 2 insulin-dependent -: A-Fib -: COPD, severe, oxygen-dependent -: Depression with anxiety -: Hyperlipidemia -: Hypertension -: Chronic migraines -: Chronic pain -: Chronic ulcers to the lower extremity -: Chronic renal disease -: CHF, diastolic dysfunction -: APPENDECTOMY, LEFT KNEE surgery, FOOT SX, EYE surgery -: COMPLETE HYSTERECTOMY , PLATE PLACED ON right WRIST -: 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 She also has a common-law partner. She does not work. Patient is DNR. - Family History Father -: Heart disease, Lung disease Mother -: Lung disease, Diabetes - Social History Smoking Status: Current every day smoker Counseled patient to stop smoking for: less than 10 minutes Alcohol use: No CD- Drugs: No Caffeine use: Yes Place of Residence: Home Review of Systems 10-point ROS is otherwise unremarkable Physical Examination - Physical Exam General: Alert, In no apparent distress HEENT: Atraumatic, PERRLA, Mucous membr. moist/pink, EOMI, Sclerae nonicteric Neck: Supple, 2+ carotid pulse no bruit, No LAD, Without JVD or thyroid abnormality Respiratory: Normal air movement, Crackles/rales (bibasilar fine crackles, worse in left base) Cardiovascular: Regular rate/rhythm, Normal S1 S2 Gastrointestinal: Normal bowel sounds, No tenderness Musculoskeletal: No tenderness Integumentary: No rashes Neurological: Normal speech, Normal strength at 5/5 x4 extr, Normal tone, Normal affect Lymphatics: No axilla or inguinal lymphadenopathy - Studies Laboratory Data (last 24 hrs) 12/19/18 15:45: PT 11.7, INR 0.99 12/19/18 15:45: WBC 7.9 D, Hgb 13.0, Hct 39.6, Plt Count 143 L D 12/19/18 15:45: Sodium 137, Potassium 4.1, BUN 19 H, Creatinine 0.88, Glucose 357 H, Magnesium 1.7 L, Total Bilirubin 0.4, AST 4 L, ALT 15, Alkaline Phosphatase 92 Assessment and Plan - Problems (Diagnosis) (1) COPD exacerbation Current Visit: No Status: Acute (2) Diabetes mellitus Current Visit: No Status: Acute Qualifiers: Diabetes mellitus type: type 2 Diabetes mellitus fdc insulin use: without intermodal dispatcher use Diabetes mellitus complication status: with neurologic complications Diabetes mellitus complication detail: with unspecified neuropathy Qualified Code(s): E11.40 - Type 2 diabetes mellitus with diabetic neuropathy, unspecified (3) Chronic pain Onset Date: 10/13/16 Current Visit: No Status: Chronic Qualifiers: Chronic pain type: chronic pain syndrome (4) HTN (hypertension) Onset Date: 08/07/16 Current Visit: No Status: Chronic Qualifiers: Hypertension type: essential hypertension Qualified Code(s): I10 - Essential (primary) hypertension (5) Pneumonia Onset Date: 10/13/16 Current Visit: No Status: Resolved Qualifiers: Pneumonia type: due to unspecified organism Laterality: left Lung location: lower lobe of lung Qualified Code(s): J18.1 - Lobar pneumonia, unspecified organism - Plan The patient was admitted to the hospital due to COPD exacerbation secondary to mild left lower lobe pneumonia. Clinically she seems to be stable. Already started on empiric antibiotic treatment with Zosyn, also oral steroids and breathing treatments. Blood cultures in process. - Advance Directives Does patient have a Living Will: Yes Does patient have a Durable POA for Healthcare: Yes - Code Status/Comfort Care Code Status Assessed: Yes Code Status: Full Code
[2018-12-19] MEDS ORDERED: ONDANSETRON 4 MG/2 ML VIAL IV PRN (20:56)
[2018-12-19] MEDS ORDERED: ALPRAZOLAM 0.25 MG TABLET PO PRN (20:56)
[2018-12-19] MEDS ORDERED: IPRATROPIUM BROM 0.5MG/2.5ML NEB PRN (20:56)
[2018-12-19] MEDS ORDERED: TIZANIDINE 4 MG TABLET PO PRN (20:56)
[2018-12-19] MEDS ORDERED: BENZONATATE 100 MG CAP PO PRN (20:56)
[2018-12-19] MEDS ORDERED: ALBUTEROL 2.5 MG/3 ML NEB SOL NEB PRN (20:56)
[2018-12-19] MEDS: DIVALPROEX DR 250 MG TAB PO SCH (21:00)
[2018-12-19] MEDS: INSULIN -REGULAR HUMAN 50 UNIT/0.5 ML ML SQ SCH (21:00)
[2018-12-19] MEDS ORDERED: ATORVASTATIN 10 MG TAB PO SCH (21:00)
[2018-12-19] MEDS: ARFORMOTEROL TARTRATE 15 MCG/2 ML VIAL.NEB NEB SCH (21:30)
[2018-12-19] MEDS: FAMOTIDINE 20 MG TAB PO SCH (22:12)
[2018-12-19] MEDS: PREGABALIN 150 MG CAP PO SCH (22:13)
[2018-12-19] MEDS: predniSONE 10 MG TAB PO SCH (22:13)
[2018-12-19] MEDS: ACETAMINOPHEN 500 MG TAB PO PRN (22:13)
[2018-12-19] MEDS: GUAIFENESIN 600 MG SA TAB PO SCH (22:14)
[2018-12-19 22:32] VITALS: BMI 28.9
[2018-12-20] MEDS ORDERED: PIPER/TAZO/NS 3.375gm 3.375 GM/100 ML BAG IVPB SCH ×2 (01:00→09:00)
[2018-12-20] MEDS ORDERED: PIPERACIL/TAZO 3.375 GM VIAL IV ONE (02:25)
[2018-12-20] MEDS ORDERED: NA CHLORIDE 0.9% 100 ML IV ONE (02:27)
[2018-12-20] MEDS: TRAMADOL HCL 50 MG TAB PO PRN ×2 (02:38→13:14)
[2018-12-20] MEDS: ACETAMINOPHEN 500 MG TAB PO PRN ×2 (05:22→12:28)
[2018-12-20 06:38] LABS: Absolute Lymphocytes (CBC) 1.2 K/uL (0.7-4.9); Absolute Monocytes 0.2 K/uL (0.1-1.3); Absolute Neutrophil 6.5 K/uL (1.8-8.0); Basophils % 0.6 % (0-1.3); Eosinophils % 1.1 % (0-4.4); Hematocrit 38.3 % (36.0-45.0); Lymphocytes % 14.6 % (15.3-44.8); MPV 9.3 fL (7.6-11.3); Monocytes % 2.8 % (3.3-12.3); RBC Red Blood Cell Count 4.77 M/uL (3.86-4.86)
[2018-12-20 06:45] LABS: Magnesium 1.9 mg/dL (1.8-2.4); Potassium 4.4 mmol/L (3.5-5.1)
[2018-12-20] MEDS: ARFORMOTEROL TARTRATE 15 MCG/2 ML VIAL.NEB NEB SCH (07:52)
--- NOTE | 2018-12-20 08:06 | RAD REPORT ---
EXAM DESCRIPTION: Jaime Pa And Lat (2 Views)12/20/2018 6:36 am CLINICAL HISTORY: Cough COMPARISON: December 19 FINDINGS: The mild left basilar opacity is unchanged. Right lung appears clear of acute infiltrate. Mild hilar lymphadenopathy is unchanged. The heart is normal size
[2018-12-20] MEDS ORDERED: LISINOPRIL 10 MG TAB PO SCH (09:00)
[2018-12-20] MEDS ORDERED: CLOPIDOGREL 75 MG TABLET PO SCH (09:00)
[2018-12-20] MEDS ORDERED: FUROSEMIDE 20 MG TABLET PO SCH (09:00)
[2018-12-20] MEDS ORDERED: ASPIRIN EC 81 MG TAB PO SCH (09:00)
[2018-12-20] MEDS ORDERED: ENOXAPARIN 40 MG/0.4 ML SQ SCH (09:00)
[2018-12-20] MEDS: INSULIN -REGULAR HUMAN 50 UNIT/0.5 ML ML SQ SCH ×3 (09:10→17:01)
[2018-12-20] MEDS: PREGABALIN 150 MG CAP PO SCH (09:12)
[2018-12-20] MEDS: predniSONE 10 MG TAB PO SCH (09:12)
[2018-12-20] MEDS: FAMOTIDINE 20 MG TAB PO SCH (09:13)
[2018-12-20] MEDS: DIVALPROEX DR 250 MG TAB PO SCH (09:13)
[2018-12-20] MEDS: GUAIFENESIN 600 MG SA TAB PO SCH (09:13)
[2018-12-20 10:39] VITALS: O2SAT 96
--- NOTE | 2018-12-20 11:18 | P.CNS ---
Date of Consult: 12/20/18 Chief Complaint: Pneumonia neck pain History of Present Illness: Patient is 62 years of age admitted to the hospital he went to see a primary care doctor was coughing and was advised to go to the emergency room she has a problem with pain in the neck for which she was here last time in CT scan did not show any significant abnormality again she has significant discomfort in the base of her neck radiating to the occipital area and to the left shoulder to the extent that she is not able to raise her left is mostly occipital pain denies any temporal headaches no problems with walking urinating or defecating. Patient has a cough some shortness of breath but no fever or chills he is currently taking levofloxacin Allergies codeine [Codeine] Allergy (Intermediate, Verified 02/03/17 19:52) Itching/Hives/Rash flu vaccine Allergy (Uncoded 02/03/17 19:52) Anaphylaxis Home Medications: Aspirin 81 mg PO DAILY 01/30/12 Divalproex ER [Depakote *ER] 250 mg PO BID 01/19/15 Clopidogrel Bisulfate [Plavix] 1 tab PO DAILY 09/21/16 Lisinopril [Zestril] 10 mg PO DAILY 09/21/16 Pregabalin [Lyrica] 300 cap PO BID 09/21/16 Sertraline [Zoloft*] 1 tab PO DAILY 09/21/16 Insulin 70/30 NPH/Reg Human [Novolin 70/30*] 0 unit SQ SEECOM 02/03/17 Montelukast [Singulair*] 1 tab PO BEDTIME 10/21/17 Pravastatin Sodium 40 mg PO DAILY 10/21/17 Tiotropium [place] [Spiriva] 1 puff PO DAILY 10/21/17 Albuterol Sulfate [Proventil Hfa] 2 inhaler IH QID PRN 11/22/17 ALPRAZolam [Xanax*] 1 mg PO BEDTIME tab 06/19/18 Albuterol Neb [Proventil 0.083% Neb Soln] 2.5 mg NEB TID PRN #90 amp 06/19/18 Arformoterol Tartrate [Brovana] 15 mcg NEB BIDRESP #60 vial.neb 06/19/18 Furosemide [Lasix*] 20 mg PO DAILY #30 tab 06/19/18 Loperamide [Imodium*] 2 mg PO TID PRN 06/19/18 Nicotine [Nicoderm*] 21 mg TD BEDTIME #30 patch.td24 06/19/18 [place]-3 Fatty Acids/Fish Oil [Eql [place]-3 Fish Oil 1,000 mg] 1 each PO DAILY 12/02 Tizanidine [Zanaflex*] 4 mg PO BID PRN tab 06/19/18 Zinc 50 mg PO DAILY 06/19/18 predniSONE [Prednisone*] 20 mg PO SEECOM #15 tab 06/19/18 traMADol HCL [Ultram*] 50 mg PO Q12HP PRN tab 06/19/18 levoFLOXacin [Levaquin] 500 mg PO DAILY #5 tab 12/10/18 - Past Medical/Surgical History Diabetic: Yes -: Neuropathy -: Diabetes mellitus type 2 insulin-dependent -: A-Fib -: COPD, severe, oxygen-dependent -: Depression with anxiety -: Hyperlipidemia -: Hypertension -: Chronic migraines -: Chronic pain -: Chronic ulcers to the lower extremity -: Chronic renal disease -: CHF, diastolic dysfunction -: APPENDECTOMY, LEFT KNEE surgery, FOOT SX, EYE surgery -: COMPLETE HYSTERECTOMY , PLATE PLACED ON right WRIST -: 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 She also has a common-law partner. She does not work. Patient is DNR. - Family History Father Medical History: Heart disease, Lung disease Mother Medical History: Lung disease, Diabetes - Social History Smoking Status: Former smoker Alcohol use: No CD- Drugs: No Caffeine use: No Place of Residence: Home Review of Systems General: Weakness Respiratory: Cough, Shortness of Breath Neurological: As per HPI Physical Examination Temp Pulse Resp BP Pulse Ox 97.0 F 67 18 140/64 98 12/20/18 08:00 12/20/18 09:12 12/20/18 08:00 12/20/18 09:12 12/20/18 08:00 General: Alert, Oriented x3 Neck: Supple Respiratory: Rhonchi/gurgles Cardiovascular: No edema, Normal S1 S2 Gastrointestinal: Normal bowel sounds, Soft and benign Neurological: Other (Patient has localized tenderness and a lesion off lower cervical vertebra has difficulty moving her neck discomfort of the left shoulder ) Laboratory Data (last 24 hrs) 12/19/18 15:45: PT 11.7, INR 0.99 12/19/18 15:45: WBC 7.9 D, Hgb 13.0, Hct 39.6, Plt Count 143 L D 12/19/18 15:45: Sodium 137, Potassium 4.1, BUN 19 H, Creatinine 0.88, Glucose 357 H, Magnesium 1.7 L, Total Bilirubin 0.4, AST 4 L, ALT 15, Alkaline Phosphatase 92 - Problems (1) Neck pain on left side Current Visit: Yes Status: Acute Plan: Patient is 62 years of age with a history of COPD main problem seems to be the left sided occipital pain radiating to the left shoulder in addition to her neck pain which is causing some stiffness denies any fever or chills she has COPD continues to smoke CT scan shows no significant change patient has chronic atelectasis dating back to 2013 I have discussed with the radiology the need to amend the report as it mentions mostly abnormality on the left side discussed with doctor Luis M he will contact Dr. Landa chemistries reviewed is white count is normal there is no need to change her antibiotics I strongly recommend an MRI of the neck previous CT scan did show degenerative spine disease patient to finish the course of her antibiotics and follow with me in 2 weeks patient has been prescribed bronchodilators will verified with the nurse
--- NOTE | 2018-12-20 11:59 | RAD REPORT ---
EXAM DESCRIPTION: MRI - C Spine Wo Cont - 12/20/2018 11:39 am CLINICAL HISTORY: Left-sided neck pain, left upper extremity radiculopathy COMPARISON: CT cervical spine November 2018. TECHNIQUE: Sagittal T1-weighted, T2-weighted and T2-STIR sequences were obtained as well as T2 medic sequence. FINDINGS: Cervical vertebral bodies are normal in height and alignment. No suspicious marrow edema o r marrow replacing process. No paraspinal mass. Cerebellar tonsils and mid-line skull base show no suspicious finding. No significant finding at the C1 and C2 levels. Mild thickening of the transverse ligament posterior to the dens. This does not enc roberts on the central canal. C2-3 level: No significant findings. C3-4 level: Bilateral mild bony foraminal encroachment from uncovertebral joint hypertrophy. C4-5 level: No herniation or significant disc bulge. No canal or foramen stenosis. Facet joint degene rative change present greater on the left. C5-6 level: Disc bulge and endplate spurring changes right central canal partially attenuates the ant erior subarachnoid space. There is minimal flattening of the right anterior contour the cord. No sign ificant canal or foramen stenosis. No cord signal abnormality. Facet degenerative change is minimal. C6-7 level: Disc bulge extends across the central canal and into each exit foramen. No contact of the cord. Midline canal diameter is 9 mm. Prominent anterior disc bulge and endplate spurring changes ar e present. No significant foraminal encroachment. C7-T1 level: No significant findings. Cervical cord shows no focal narrowing, expansion or signal abnormality. IMPRESSION: Mild bony foraminal encroachment C3-4 from uncovertebral joint hypertrophy. C5-6 cervical spondylosis predominantly right central canal without canal or significant foramen sten osis. C6-7 disc bulge causing spinal stenosis to 9 mm. No significant foraminal stenosis.
--- NOTE | 2018-12-20 12:08 | RAD REPORT ---
EXAM DESCRIPTION: MRI - Thoracic Spine Wo Contr - 12/20/2018 11:39 am CLINICAL HISTORY: Left-sided back pain, left-sided neuropathy left extremity weakness COMPARISON: None. TECHNIQUE: Sagittal T1 weighted, T2 weighted and T2 STIR weighted sequences were obtained. Axial T2 weighted images were obtained through each disc level. FINDINGS: Thoracic bodies are normal in height and alignment. No marrow edema or marrow replacing pr ocess. No paraspinal soft tissue mass. Anterior disc bulge and endplate spurring changes are present in the mid and lower thoracic spine. Within the central canal there is no herniation or significant d isc bulge. Small focal spur in the midthoracic spine is present but does not contact cord. No central spinal stenosis or significant foraminal encroachment. Spinal cord shows no thickening, narrowing or signal abnormality. IMPRESSION: MRI thoracic spine examination shows no significant or suspicious finding.
--- NOTE | 2018-12-20 13:48 | P.DS ---
Admission Date: 12/19/18 Discharge Date: 12/20/18 Primary Care Provider: Dr. Whalen; Pulmonary-Dr. Chau Disposition: DC HOME/HOME HEALTH CARE Discharge Condition: GOOD Reason for Admission: Pneumonia neck pain Consultations: Pulmonary-Dr. Chau Procedures: CT scan chest: COMPARISON: THORAX WO CONTRAST dated 07/18/2014; Chest Single View dated 2018 FINDINGS: Mild alveolar lung opacity is present in the left lung base and inferior lingula compatible with mild pneumonia. Subtle areas of ground-glass opacity/ atelectasis also present in both upper lobes anteriorly. No pleural thickening or pleural effusion. No pneumothorax. Mild adenopathy is seen in the mediastinum in both jc, largest in the sub- carinal space measuring 15 mm. No concerning bony finding. No gross upper abdominal finding. All CT scans are performed using dose optimization technique as appropriate and may include automated exposure control or mA/KV adjustment according to patient size. IMPRESSION: Areas of ground-glass/alveolar lung opacity in the inferior lingula and left lower lobe likely represents mild pneumonia.Mild hilar and mediastinal lymphadenopathy is present. MRI C-spine: FINDINGS: Cervical vertebral bodies are normal in height and alignment. No suspicious marrow edema or marrow replacing process. No paraspinal mass. Cerebellar tonsils and mid-line skull base show no suspicious finding. No significant finding at the C1 and C2 levels. Mild thickening of the transverse ligament posterior to the dens. This does not encroach on the central canal. C2-3 level: No significant findings. C3-4 level: Bilateral mild bony foraminal encroachment from uncovertebral joint hypertrophy. C4-5 level: No herniation or significant disc bulge. No canal or foramen stenosis. Facet joint degenerative change present greater on the left. C5-6 level: Disc bulge and endplate spurring changes right central canal partially attenuates the anterior subarachnoid space. There is minimal flattening of the right anterior contour the cord. No significant canal or foramen stenosis. No cord signal abnormality. Facet degenerative change is minimal. C6-7 level: Disc bulge extends across the central canal and into each exit foramen. No contact of the cord. Midline canal diameter is 9 mm. Prominent anterior disc bulge and endplate spurring changes are present. No significant foraminal encroachment. C7-T1 level: No significant findings. Cervical cord shows no focal narrowing, expansion or signal abnormality. IMPRESSION: Mild bony foraminal encroachment C3-4 from uncovertebral joint hypertrophy. C5-6 cervical spondylosis predominantly right central canal without canal or significant foramen stenosis. C6-7 disc bulge causing spinal stenosis to 9 mm. No significant foraminal stenosis. MRI T-spine: FINDINGS: Thoracic bodies are normal in height and alignment. No marrow edema or marrow replacing process. No paraspinal soft tissue mass. Anterior disc bulge and endplate spurring changes are present in the mid and lower thoracic spine. Within the central canal there is no herniation or significant disc bulge. Small focal spur in the midthoracic spine is present but does not contact cord. No central spinal stenosis or significant foraminal encroachment. Spinal cord shows no thickening, narrowing or signal abnormality. IMPRESSION: MRI thoracic spine examination shows no significant or suspicious finding. Medical problem list: Shortness of breath, cough with left base pneumonia likely chronic COPD exacerbation with history of COPD on chronic oxygen Neck pain secondary to bulging disc at C6-7 with spinal stenosis CAD Hypertension Hyperlipidemia Diabetes mellitus type 2, insulin-dependent Depression with anxiety Chronic CHF, diastolic Brief History of Present Illness: 62-year-old female presented emergency room with shortness of breath and cough. She also reported some neck pain. CT scan revealed mild left base pneumonia. Patient was admitted for further evaluation. Hospital Course: Patient presents with shortness of breath and cough. Patient previously with pneumonia. CT scan revealed left base pneumonia. Patient seen and evaluated by pulmonology. This appeared improved from previous radiology examination. Pro calcitonin negative. Pulmonology recommends to continue with prior antibiotic and to finish course. Patient previously on Levaquin. Will provide Levaquin 500 mg once daily for 5 more days. Patient also with underlying COPD with chronic oxygen. Patient with mild exacerbation. Patient treated as well. At discharge she will continue with home oxygen to maintain sats above 90%. She will continue with prednisone 10 mg 1 pill twice daily for 5 days then 1 pill once daily for 5 days. She will continue with her home medications including Brovana 1 unit dose twice daily, Spiriva 1 puff daily, and albuterol 1 unit dose 3 times a day as needed for shortness of breath. Patient is to follow up with pulmonology in 1-2 weeks to follow up this hospitalization. Recommend to recheck chest x-ray in 2-4 weeks to monitor resolution. Patient with CAD. Patient continue with aspirin 81 mg daily and Plavix 75 mg daily. Patient also presented with left neck pain. Patient with history of degenerative disc and joint disease. MRI showed bulging disc to the C6-C7 region with spinal stenosis. Patient has seen multiple pain specialist and neuro surgery. Recommend is to follow up with pain management and neuro surgery to further evaluate and treat. Patient may continue with Zanaflex twice daily as needed for muscle spasm, tramadol 50 mg twice daily as needed for pain, and Lyrica 300 mg 1 pill twice daily. Patient with depression anxiety. Patient will continue with Depakote ER 10 50 mg 1 pill twice daily, Zoloft 100 mg daily, and Xanax 1 mg at bedtime. Patient with diabetes mellitus type 2. Patient with insulin-dependent. Patient continue with her insulin 70/30 regimen. Patient with hyperlipidemia. Patient will continue with pravastatin 40 mg daily. Patient with hypertension. Patient will continue with lisinopril 10 mg daily. Patient with chronic diastolic CHF. This has remained stable. Patient continue with a 1500 cc per day fluid restriction. Patient also takes Lasix 20 mg daily. Vital Signs/Physical Exam: Temp Pulse Resp BP Pulse Ox 97.0 F 65 18 140/60 98 12/20/18 12:00 12/20/18 12:00 12/20/18 12:00 12/20/18 12:00 12/20/18 12:00 General: Alert, In no apparent distress, Oriented x3, Cooperative HEENT: Atraumatic Neck: Other (Some neck pain with rotation. Stiff neck noted) Respiratory: Clear to auscultation bilaterally, Normal air movement Cardiovascular: Normal pulses, Regular rate/rhythm Gastrointestinal: Normal bowel sounds, Soft and benign, Non-distended, No tenderness, No masses, No rebound, No guarding Musculoskeletal: No erythema, No tenderness, No warmth Integumentary: No tenderness/swelling, No erythema, No warmth, No cyanosis Neurological: Normal speech, Normal strength at 5/5 x4 extr, Normal tone, Normal affect Laboratory Data at Discharge: WBC 8.0 K/uL (4.3-10.9) 12/20/18 06:16 Hgb 12.6 g/dL (12.0-15.0) 12/20/18 06:16 Hct 38.3 % (36.0-45.0) 12/20/18 06:16 Plt Count 146 K/uL (152-406) L 12/20/18 06:16 PT 11.7 SECONDS (9.5-12.5) 12/19/18 15:45 INR 0.99 12/19/18 15:45 Sodium 136 mmol/L (136-145) 12/20/18 06:16 Potassium 4.4 mmol/L (3.5-5.1) 12/20/18 06:16 BUN 16 mg/dL (7-18) 12/20/18 06:16 Creatinine 0.91 mg/dL (0.55-1.3) 12/20/18 06:16 Glucose 387 mg/dL (74-106) H 12/20/18 06:16 Magnesium 1.9 mg/dL (1.8-2.4) 12/20/18 06:16 Total Bilirubin 0.4 mg/dL (0.2-1.0) 12/19/18 15:45 AST 4 U/L (15-37) L 12/19/18 15:45 ALT 15 U/L (12-78) 12/19/18 15:45 Alkaline Phosphatase 92 U/L (45-117) 12/19/18 15:45 Home Medications: Aspirin 81 mg PO DAILY 01/30/12 Divalproex ER [Depakote *ER] 250 mg PO BID 01/19/15 Clopidogrel Bisulfate [Plavix] 1 tab PO DAILY 09/21/16 Lisinopril [Zestril] 10 mg PO DAILY 09/21/16 Pregabalin [Lyrica] 300 cap PO BID 09/21/16 Sertraline [Zoloft*] 1 tab PO DAILY 09/21/16 Insulin 70/30 NPH/Reg Human [Novolin 70/30*] 0 unit SQ SEECOM 02/03/17 Montelukast [Singulair*] 1 tab PO BEDTIME 10/21/17 Pravastatin Sodium 40 mg PO DAILY 10/21/17 Tiotropium [place] [Spiriva] 1 puff PO DAILY 10/21/17 Albuterol Sulfate [Proventil Hfa] 2 inhaler IH QID PRN 11/22/17 ALPRAZolam [Xanax*] 1 mg PO BEDTIME tab 06/19/18 Albuterol Neb [Proventil 0.083% Neb Soln] 2.5 mg NEB TID PRN #90 amp 06/19/18 Arformoterol Tartrate [Brovana] 15 mcg NEB BIDRESP #60 vial.neb 06/19/18 Furosemide [Lasix*] 20 mg PO DAILY #30 tab 06/19/18 Loperamide [Imodium*] 2 mg PO TID PRN 06/19/18 Nicotine [Nicoderm*] 21 mg TD BEDTIME #30 patch.td24 06/19/18 [place]-3 Fatty Acids/Fish Oil [Eql [place]-3 Fish Oil 1,000 mg] 1 each PO DAILY 12/02 Tizanidine [Zanaflex*] 4 mg PO BID PRN tab 06/19/18 Zinc 50 mg PO DAILY 06/19/18 traMADol HCL [Ultram*] 50 mg PO Q12HP PRN tab 06/19/18 Levofloxacin [Levaquin] 500 mg PO DAILY #5 tablet 12/20/18 predniSONE [Deltasone*] 10 mg PO SEECOM #15 tab 12/20/18 New Medications: Levofloxacin [Levaquin] 500 mg PO DAILY #5 tablet predniSONE [Deltasone*] 10 mg PO SEECOM #15 tab Patient Discharge Instructions: 1. Follow up with her PCP in 1 week to follow up this hospitalization. 2. Patient presents with shortness of breath and cough. Patient previously with pneumonia. CT scan revealed left base pneumonia. Patient seen and evaluated by pulmonology. This appeared improved from previous radiology examination. Pro calcitonin negative. Pulmonology recommends to continue with prior antibiotic and to finish course. Patient previously on Levaquin. Will provide Levaquin 500 mg once daily for 5 more days. Patient also with underlying COPD with chronic oxygen. Patient with mild exacerbation. Patient treated as well. At discharge she will continue with home oxygen to maintain sats above 90%. She will continue with prednisone 10 mg 1 pill twice daily for 5 days then 1 pill once daily for 5 days. She will continue with her home medications including Brovana 1 unit dose twice daily, Spiriva 1 puff daily, and albuterol 1 unit dose 3 times a day as needed for shortness of breath. Patient is to follow up with pulmonology in 1-2 weeks to follow up this hospitalization. Recommend to recheck chest x-ray in 2-4 weeks to monitor resolution. 3. Patient with CAD. Patient continue with aspirin 81 mg daily and Plavix 75 mg daily. 4. Patient also presented with left neck pain. Patient with history of degenerative disc and joint disease. MRI showed bulging disc to the C6-C7 region with spinal stenosis. Patient has seen multiple pain specialist and neuro surgery. Recommend is to follow up with pain management and neuro surgery to further evaluate and treat. Patient may continue with Zanaflex twice daily as needed for muscle spasm, tramadol 50 mg twice daily as needed for pain, and Lyrica 300 mg 1 pill twice daily. 5. Patient with depression anxiety. Patient will continue with Depakote ER 10 50 mg 1 pill twice daily, Zoloft 100 mg daily, and Xanax 1 mg at bedtime. 6. Patient with diabetes mellitus type 2. Patient with insulin-dependent. Patient continue with her insulin 70/30 regimen. 7. Patient with hyperlipidemia. Patient will continue with pravastatin 40 mg daily. 8. Patient with hypertension. Patient will continue with lisinopril 10 mg daily. 9. Patient with chronic diastolic CHF. This has remained stable. Patient continue with a 1500 cc per day fluid restriction. Patient also takes Lasix 20 mg daily. Diet: ADA Activity: Fall precautions Time spent managing pt's care (in minutes): 55
[2018-12-20 17:23] VITALS: BP 124/55; TEMP 97
--- NOTE | 2018-12-24 11:21 | EKG ---
Test Date: 2018-12-19 Test Time: 15:25:44 [employer]: ROGELIO MEASUREMENT RESULTS: Intervals: Rate: 83 HI: 120 QRSD: 134 QT: 386 QTc: 453 [place]: P: 65 HI: 120 QRS: 76 T: 64 INTERPRETIVE STATEMENTS: Normal sinus rhythm Right bundle branch block Abnormal ECG Compared to ECG 12/09/2018 16:24:20 no significant change from previous ECG Electronically Signed On 12-19-18 16:25:19 CDT by Fransisco Khan
== END 2018-12-20 18:13 | disposition home health service (06) ==
LOC: ER 15:10 → ERHOLD 18:45 → 4TH 20:13
PROVIDERS: ADMIT Family Medicine; ATTEND Internal Medicine
DX: J18.9 Pneumonia, unspecified organism (principal); J44.0 Chronic obstructive pulmonary disease with (acute) lower respiratory infection; J44.1 Chronic obstructive pulmonary disease with (acute) exacerbation; I25.10 Atherosclerotic heart disease of native coronary artery without angina pectoris; M50.320 Other cervical disc degeneration, mid-cervical region, unspecified level; M48.02 Spinal stenosis, cervical region; E78.5 Hyperlipidemia, unspecified; F41.8 Other specified anxiety disorders; I11.0 Hypertensive heart disease with heart failure; I50.32 Chronic diastolic (congestive) heart failure; E11.9 Type 2 diabetes mellitus without complications; Z99.81 Dependence on supplemental oxygen; Z79.82 Long term (current) use of aspirin; Z96.652 Presence of left artificial knee joint; Z66 Do not resuscitate
CPT/HCPCS: 96365; 96367; 96368; 93005; 87040 ×2; 85025 ×2; 80048 ×2; 36415; 83735 ×2; 81025; 85610; 82962 ×3; 80076; 83605 ×2; 81003; 84484; 84145; 83880; 71260; 71045; 71046; 72141; 72146; 97163; 94640 ×2; 96375; 99285; Q9967; J2543 ×3; J1650; J3360; J3475; J7605 ×2; J2800; G0378 ×2; J7512

== ENCOUNTER 2019-01-08 10:44 | Inpatient (IN) | payer OTHER ==
--- NOTE | 2019-01-08 11:34 | RAD REPORT ---
EXAM DESCRIPTION: RAD - Foot Left 3 View - 01/08/2019 11:24 am CLINICAL HISTORY: Cellulitis, foot pain COMPARISON: November 25, 2018 FINDINGS: No fracture, dislocation or periosteal reaction. No erosive or destructive bone process se en. Hallux valgus configuration again noted. Patient has IP joint space narrowing and first MTP joint space narrowing. Soft tissues along the medial margin of the first metatarsal head are prominent. Th is has increased since the November examination. No calcifications in the soft tissues. Clinical history indicates cellulitis. Gout is not excluded based on imaging. Plantar spur again noted. Primary site of soft tissue swelling is over the distal dorsum of the foot. In this region there is no air or fore ign body present. No abnormal soft tissue calcifications. IMPRESSION: Soft tissue swelling over the dorsum of the foot without air or foreign body. The soft t issue swelling is progressive from November. Soft tissue swelling along the medial margin of the first metatarsal head also progressive that may b e part of the same process. No new bone process since prior imaging.
[2019-01-08 11:57] LABS: Absolute Monocytes 0.8 K/uL (0.1-1.3); Absolute Neutrophil 11.2 K/uL (1.8-8.0); Basophils % 0.4 % (0-1.3); Eosinophils % 0.8 % (0-4.4); Hematocrit 38.4 % (36.0-45.0); MPV 9.4 fL (7.6-11.3); Monocytes % 5.7 % (3.3-12.3); RBC Red Blood Cell Count 4.82 M/uL (3.86-4.86)
--- NOTE | 2019-01-08 12:09 | ER ---
Nurse's Notes [facility] Name: Nakia Turcios Age: 63 yrs Sex: Female : 1955 Arrival Date: 01/08/2019 Time: 10:46 Bed 20 Private MD: Erasmo Jimenez Diagnosis: Cellulitis of left lower limb Presentation: 01/08 10:52 Presenting complaint: Patient states: L foot swelling, redness, pain and warmth that ss began 2 days ago. Transition of care: patient was not received from another setting of care. Onset of symptoms was January 06, 2019. Risk Assessment: Do you want to hurt yourself or someone else? Patient reports no desire to harm self or others. Initial Sepsis Screen: Does the patient meet any 2 criteria? No. Patient's initial sepsis screen is negative. Does the patient have a suspected source of infection? Yes: Skin breakdown/wound. Care prior to arrival: None. 10:52 Method Of Arrival: Wheelchair ss 10:52 Acuity: JESUSITA 3 ss Historical: - Allergies: 10:53 Codeine (Anaphylaxis); ss 10:53 FLU VACCINE; ss - Home Meds: 11:39 Albuterol Inhl 4 times per day [Active]; alprazolam 1 mg Oral tab 3 times per day for tw2 Anxiety [Active]; aspirin 81 mg Oral chew 1 tab once daily [Active]; atorvastatin 20 mg Oral tab 1 tab nightly [Active]; bupropion HCl 150 mg Oral TbER 1 tab 2 times per day [Active]; clopidogrel 75 mg Oral tab [Active]; Daliresp 500 mcg Oral tab 1 tab once daily [Active]; divalproex 250 mg Oral Tb24 2 tabs once daily [Active]; Insulin: Novolin 70/30 130 units in am and 105 at night Sub-Q [Active]; lisinopril 10 mg Oral tab 1 tab once daily [Active]; Lyrica 300mg Oral 2 times per day [Active]; montelukast 10 mg Oral tab once daily [Active]; OMEGA-3 daily [Active]; pravastatin 40 mg Oral tab 1 tab once daily [Active]; sertraline 100 mg Oral tab 1 tab once daily [Active]; - PMHx: 10:53 CHF; COPD; Diabetes - IDDM; Hypertension; neuropathy; ss - PSHx: 10:53 Knee surgery; Appendectomy; wrist; R foot; cataract; pain pump; ss - Immunization history:: Adult Immunizations unknown. - Social history:: Smoking status: Patient uses tobacco products, smokes one-half pack cigarettes per day. - Ebola Screening: : Patient denies exposure to infectious person Patient denies travel to an Ebola-affected area in the 21 days before illness onset. Screenin:37 Abuse screen: Denies threats or abuse. Nutritional screening: No deficits noted. tw2 Tuberculosis screening: No symptoms or risk factors identified. Fall Risk Secondary diagnosis (15 points) impaired mobility. Assessment: 11:35 General: Appears in no apparent distress. Behavior is calm, cooperative, appropriate tw2 for age. Pain: Complains of pain in left foot and right foot. Neuro: Level of Consciousness is awake, alert, obeys commands, Oriented to person, place, time, situation. Cardiovascular: Heart tones S1 S2 Patient's skin is warm and dry. Respiratory: Airway is patent Respiratory effort is even, unlabored, Respiratory pattern is regular, symmetrical, Breath sounds are clear bilaterally. GI: No signs and/or symptoms were reported involving the gastrointestinal system. Abdomen is round non-distended, obese, Bowel sounds present X 4 quads. : No signs and/or symptoms were reported regarding the genitourinary system. EENT: No signs and/or symptoms were reported regarding the EENT system. Derm: Reports increased redness and swelling in right foot. Musculoskeletal: Circulation, motion, and sensation intact. Range of motion: intact in all extremities, Swelling present in left foot. 11:44 Reassessment: Patient appears in no apparent distress at this time. No changes from tw2 previously documented assessment. 12:54 Reassessment: Patient appears in no apparent distress at this time. No changes from tw2 previously documented assessment. Vital Signs: 10:53 BP 108 / 57; Pulse 89; Resp 22 S; Temp 97.8(TE); Pulse Ox 94% on R/A; Weight 70.31 kg; ss Height 5 ft. 3 in. (160.02 cm); Pain 10/10; 11:45 BP 114 / 62; Pulse 87; Resp 17; Pulse Ox 100% on 2 lpm NC; tw2 12:54 BP 140 / 70; Pulse 96; Resp 22; Pulse Ox 99% on 2 lpm NC; tw2 10:53 Body Mass Index 27.46 (70.31 kg, 160.02 cm) ED Course: 10:46 Patient arrived in ED. mr 10:46 Erasmo Jimenez MD is Private Physician. mr 10:48 [facility] jr8 10:48 Luis Angel Romero MD is Attending Physician. jr8 10:50 Bed in low position. Call light in reach. nuclear monitoring technician on. Pulse ox on. NIBP on. tw2 Warm blanket given. 10:53 Triage completed. ss 10:53 Arm band placed on right wrist. ss 11:24 Foot Left 3 View In Process Unspecified. EDMS 11:28 Initial lab(s) drawn, by ks, sent to lab. First set of blood cultures drawn by ks. 3 Inserted saline lock: 20 gauge in right antecubital area, using aseptic technique. Blood collected. 11:34 Mi Acosta RN is Primary Nurse. tw2 11:45 Second set of blood cultures drawn by ks. 3 12:07 Tessy Crain MD is Hospitalizing Provider. jr8 12:55 No provider procedures requiring assistance completed. tw2 12:56 attempted to call report and was told the nurse would have to call me back. tw2 13:11 attempted to call report, ELSI Thompsonmedical charge entry specialist nurse told me he would have ELSI Decker call me tw2 back. 13:40 attempted to call report to ELSI decker was left on hold over 5 minutes, called back and tw2 gave report to ELSI Thompson. 13:41 Patient admitted, IV remains in place. tw2 Administered Medications: 12:28 Drug: Zofran 4 mg Route: IVP; Site: right antecubital; tw2 16:40 Follow up: Response: No adverse reaction tw2 12:30 Drug: fentaNYL (PF) 50 mcg Route: IVP; Site: right antecubital; tw2 12:45 Follow up: Response: No adverse reaction; Pain is decreased tw2 12:43 Drug: LevaQUIN 750 mg Volume: 150 ml; Route: IVPB; Infused Over: 90 mins; Site: right tw2 antecubital; 13:40 Follow up: IV Status: Infusion continued upon admission tw2 12:43 Drug: NS 0.9% 1000 ml Route: IV; Rate: 1000 ml; Site: right antecubital; tw2 13:40 Follow up: IV Status: Infusion continued upon admission tw2 16:41 Not Given (another abx infusing, sent to floor with pt for admin): vancoMYCIN 1 grams tw2 IVPB once over 2 hrs Outcome: 12:07 Decision to Hospitalize by Provider. kiesha 13:40 Admitted to Med/surg accompanied by tech, room 427, with chart, Report called to sirena Thompson RN 13:40 Condition: stable 13:40 Instructed on the need for admit. 13:53 Patient left the ED. tw2 Signatures: Dispatcher [employer] EDOH LeoTana mr Renetta Flores, RN RN Nelson Krueger PA PA jr8 Mi Acosta RN RN 2 Sujatha Giles 3 Corrections: (The following items were deleted from the chart) 11:36 11:35 Musculoskeletal: Circulation, motion, and sensation intact. Range of motion: tw2 intact in all extremities, Swelling present in left foot and right foot tw2 12:55 11:45 BP 114 / 62; Pulse 87bpm; Resp 17bpm; Pulse Ox 100% RA; tw2 tw2
--- NOTE | 2019-01-08 12:09 | EDPHYS ---
Physician Documentation [facility] Name: Nakia Turcios Age: 63 yrs Sex: Female : 1955 Arrival Date: 01/08/2019 Time: 10:46 Bed 20 Private MD: Erasmo Jimenez ED Physician Luis Angel Romero HPI: 01/08 11:22 This 63 yrs old Female presents to ER via Wheelchair with complaints of Leg jr8 Swelling, Foot Swelling. 11:22 The patient presents with cellulitis of the left foot . jr8 11:23 Description: swollen, warm. Onset: The symptoms/episode began/occurred gradually, 4 jr8 day(s) ago, and became worse and became persistent. Possible cause(s): open wound to bottom of foot. Associated signs and symptoms: Pertinent positives: pain. Modifying factors: the symptoms are alleviated by nothing, the symptoms are aggravated by walking, pressure, touching. Severity of symptoms: At their worst the symptoms were moderate, in the emergency department the symptoms are unchanged. It is unknown whether or not the patient has had similar symptoms in the past. The patient has not recently seen a physician. Patient stated that she is currently under the care of a pediatrist for open wound to bottom of left foot. Stated that she has been going through treatment for about 1 year. Over the course of the past 4 days has had redness, swelling, tenderness occur in left foot. Now having pain extending up the leg . Historical: - Allergies: 10:53 Codeine (Anaphylaxis); ss 10:53 FLU VACCINE; ss - Home Meds: 11:39 Albuterol Inhl 4 times per day [Active]; alprazolam 1 mg Oral tab 3 times per day for tw2 Anxiety [Active]; aspirin 81 mg Oral chew 1 tab once daily [Active]; atorvastatin 20 mg Oral tab 1 tab nightly [Active]; bupropion HCl 150 mg Oral TbER 1 tab 2 times per day [Active]; clopidogrel 75 mg Oral tab [Active]; Daliresp 500 mcg Oral tab 1 tab once daily [Active]; divalproex 250 mg Oral Tb24 2 tabs once daily [Active]; Insulin: Novolin 70/30 130 units in am and 105 at night Sub-Q [Active]; lisinopril 10 mg Oral tab 1 tab once daily [Active]; Lyrica 300mg Oral 2 times per day [Active]; montelukast 10 mg Oral tab once daily [Active]; OMEGA-3 daily [Active]; pravastatin 40 mg Oral tab 1 tab once daily [Active]; sertraline 100 mg Oral tab 1 tab once daily [Active]; - PMHx: 10:53 CHF; COPD; Diabetes - IDDM; Hypertension; neuropathy; ss - PSHx: 10:53 Knee surgery; Appendectomy; wrist; R foot; cataract; pain pump; ss - Immunization history:: Adult Immunizations unknown. - Social history:: Smoking status: Patient uses tobacco products, smokes one-half pack cigarettes per day. - Ebola Screening: : Patient denies exposure to infectious person Patient denies travel to an Ebola-affected area in the 21 days before illness onset. ROS: 11:23 Eyes: Negative for injury, pain, redness, and discharge, ENT: Negative for injury, jr8 pain, and discharge, Neck: Negative for injury, pain, and swelling, Cardiovascular: Negative for chest pain, palpitations, and edema, Respiratory: Negative for shortness of breath, cough, wheezing, and pleuritic chest pain, Abdomen/GI: Negative for abdominal pain, nausea, vomiting, diarrhea, and constipation, Back: Negative for injury and pain, MS/Extremity: Negative for injury and deformity, Neuro: Negative for headache, weakness, numbness, tingling, and seizure. 11:23 Skin: Positive for cellulitis, open wound left foot. Exam: 11:23 Eyes: Pupils equal round and reactive to light, extra-ocular motions intact. Lids and jr8 lashes normal. Conjunctiva and sclera are non-icteric and not injected. Cornea within normal limits. Periorbital areas with no swelling, redness, or edema. ENT: Nares patent. No nasal discharge, no septal abnormalities noted. Tympanic membranes are normal and external auditory canals are clear. Oropharynx with no redness, swelling, or masses, exudates, or evidence of obstruction, uvula midline. Mucous membranes moist. Neck: Trachea midline, no thyromegaly or masses palpated, and no cervical lymphadenopathy. Supple, full range of motion without nuchal rigidity, or vertebral point tenderness. No Meningismus. Cardiovascular: Regular rate and rhythm with a normal S1 and S2. No gallops, murmurs, or rubs. Normal PMI, no JVD. No pulse deficits. Respiratory: Lungs have equal breath sounds bilaterally, clear to auscultation and percussion. No rales, rhonchi or wheezes noted. No increased work of breathing, no retractions or nasal flaring. Abdomen/GI: Soft, non-tender, with normal bowel sounds. No distension or tympany. No guarding or rebound. No evidence of tenderness throughout. Back: No spinal tenderness. No costovertebral tenderness. Full range of motion. MS/ Extremity: Pulses equal, no cyanosis. Neurovascular intact. Full, normal range of motion. Tenderness to medial left leg from ankle to mid thigh without erythema or streaking noted Neuro: Awake and alert, GCS 15, oriented to person, place, time, and situation. Cranial nerves II-XII grossly intact. Motor strength 5/5 in all extremities. Sensory grossly intact. Cerebellar exam normal. Normal gait. 11:23 Skin: cellulitis, that is moderate, confluent, well demarcated, on the left foot. Vital Signs: 10:53 BP 108 / 57; Pulse 89; Resp 22 S; Temp 97.8(TE); Pulse Ox 94% on R/A; Weight 70.31 kg; ss Height 5 ft. 3 in. (160.02 cm); Pain 10/10; 11:45 BP 114 / 62; Pulse 87; Resp 17; Pulse Ox 100% on 2 lpm NC; tw2 12:54 BP 140 / 70; Pulse 96; Resp 22; Pulse Ox 99% on 2 lpm NC; tw2 10:53 Body Mass Index 27.46 (70.31 kg, 160.02 cm) MDM: 10:48 Patient medically screened. jr8 12:06 Data reviewed: vital signs, nurses notes, lab test result(s), radiologic studies, plain jr8 films. Data interpreted: Pulse oximetry: on room air is 100 %. Interpretation: normal. Counseling: I had a detailed discussion with the patient and/or guardian regarding: the historical points, exam findings, and any diagnostic results supporting the discharge/admit diagnosis, lab results, radiology results, the need for further work-up and treatment in the hospital. Physician consultation: Tessy Crain MD was called at 12:06, was contacted at 12:06, regarding admission, to the telemetry unit. consult, patient's condition, and will see patient. 01/08 11:05 Order name: CBC with Diff; Complete Time: 12:00 [facility] 01/08 11:05 Order name: Basic Metabolic Panel; Complete Time: 12:29 [facility] 01/08 11:05 Order name: LFT's; Complete Time: 12:29 [facility] 01/08 11:05 Order name: Blood Culture Adult (2) [facility] 01/08 11:05 Order name: Procalcitonin; Complete Time: 13:05 [facility] 01/08 12:17 Order name: C-Reactive Protein; Complete Time: 13:23 [facility] 01/08 11:17 Order name: Foot Left 3 View; Complete Time: 11:37 [facility] 01/08 12:17 Order name: Lactate; Complete Time: 13:23 [facility] 01/08 12:19 Order name: Lower Ext. W/Wo Con [facility] 01/08 12:19 Order name: Urinalysis [facility] 01/08 11:05 Order name: IV; Complete Time: 11:33 [facility] 01/08 12:17 Order name: CONS [facility] Cons [facility] 01/08 12:17 Order name: CONS Physician Consult [facility] 01/08 12:17 Order name: CONS Physician Consult EDID Administered Medications: 12:28 Drug: Zofran 4 mg Route: IVP; Site: right antecubital; tw2 16:40 Follow up: Response: No adverse reaction tw2 12:30 Drug: fentaNYL (PF) 50 mcg Route: IVP; Site: right antecubital; tw2 12:45 Follow up: Response: No adverse reaction; Pain is decreased tw2 12:43 Drug: LevaQUIN 750 mg Volume: 150 ml; Route: IVPB; Infused Over: 90 mins; Site: right tw2 antecubital; 13:40 Follow up: IV Status: Infusion continued upon admission tw2 12:43 Drug: NS 0.9% 1000 ml Route: IV; Rate: 1000 ml; Site: right antecubital; tw2 13:40 Follow up: IV Status: Infusion continued upon admission tw2 16:41 Not Given (another abx infusing, sent to floor with pt for admin): vancoMYCIN 1 grams tw2 IVPB once over 2 hrs Disposition: 15:24 Co-signature as Attending Physician, Luis Angel Romero MD I agree with the assessment and anuja plan of care. Disposition: 01/08/19 12:07 Hospitalization ordered by Tessy Crain for Inpatient Admission. Preliminary diagnosis is Cellulitis of left lower limb. - Bed requested for Telemetry/MedSurg (Inpatient). - Status is Inpatient Admission. tw2 - Condition is Stable. - Problem is new. - Symptoms are unchanged. UTI on Admission? No Signatures: Dispatcher [employer] EDID Shasha Pendleton Corey, MD MD cha Smirch, Shelby, ELSI RN Nelson Grigsby PA PA jr8 Mi Acosta RN RN tw2 Corrections: (The following items were deleted from the chart) 11:17 11:05 Foot Right 3 View+RAD.RAD.BRZ ordered. [facility] 11:25 11:22 The patient presents with cellulitis of the right foot, jr8 jr8 12:29 12:07 Hospitalization Ordered by Tessy Crain MD for Inpatient Admission. Preliminary bd diagnosis is Cellulitis of left lower limb. Bed requested for Telemetry/MedSurg (Inpatient). Status is Inpatient Admission. Condition is Stable. Problem is new. Symptoms are unchanged. UTI on Admission? No. jr8 13:53 12:29 01/08/2019 12:07 Hospitalization Ordered by Tessy Crain MD for Inpatient tw2 Admission. Preliminary diagnosis is Cellulitis of left lower limb. Bed requested for Telemetry/MedSurg (Inpatient). Status is Inpatient Admission. Condition is Stable. Problem is new. Symptoms are unchanged. UTI on Admission? No. bd
[2019-01-08 12:25] LABS: Albumin 3.6 g/dL (3.4-5.0); Bilirubin Direct 0.1 mg/dL (0-0.2); Bilirubin Total 0.5 mg/dL (0.2-1.0); Potassium 4.1 mmol/L (3.5-5.1); Protein, Total 8.1 g/dL (6.4-8.2)
[2019-01-08] MEDS ORDERED: Levofloxacin 750mg IV 750 MG/150 ML BAG IV ONE (12:36)
[2019-01-08] MEDS ORDERED: ONDANSETRON 4 MG/2 ML VIAL ONE (12:36)
[2019-01-08] MEDS ORDERED: FENTANYL CITR 100 MCG/2 ML ONE (12:36)
--- NOTE | 2019-01-08 12:43 | P.CNS ---
Date of Consult: 01/08/19 Reason for Consult: cellulitis left foot Requesting Physician: Damaris Crain Chief Complaint: cellulitis left foot History of Present Illness: PAtient states that she noticed redness left foot today. Contacted her home health provider and was told to present to the ER Allergies codeine [Codeine] Allergy (Intermediate, Verified 02/03/17 19:52) Itching/Hives/Rash flu vaccine Allergy (Uncoded 02/03/17 19:52) Anaphylaxis Home Medications: Aspirin 81 mg PO DAILY 01/30/12 Divalproex ER [Depakote *ER] 250 mg PO BID 01/19/15 Clopidogrel Bisulfate [Plavix] 1 tab PO DAILY 09/21/16 Lisinopril [Zestril] 10 mg PO DAILY 09/21/16 Pregabalin [Lyrica] 300 cap PO BID 09/21/16 Sertraline [Zoloft*] 1 tab PO DAILY 09/21/16 Insulin 70/30 NPH/Reg Human [Novolin 70/30*] 0 unit SQ SEECOM 02/03/17 Montelukast [Singulair*] 1 tab PO BEDTIME 10/21/17 Pravastatin Sodium 40 mg PO DAILY 10/21/17 Tiotropium [place] [Spiriva] 1 puff PO DAILY 10/21/17 Albuterol Sulfate [Proventil Hfa] 2 inhaler IH QID PRN 11/22/17 ALPRAZolam [Xanax*] 1 mg PO BEDTIME tab 06/19/18 Albuterol Neb [Proventil 0.083% Neb Soln] 2.5 mg NEB TID PRN #90 amp 06/19/18 Arformoterol Tartrate [Brovana] 15 mcg NEB BIDRESP #60 vial.neb 06/19/18 Furosemide [Lasix*] 20 mg PO DAILY #30 tab 06/19/18 Loperamide [Imodium*] 2 mg PO TID PRN 06/19/18 Nicotine [Nicoderm*] 21 mg TD BEDTIME #30 patch.td24 06/19/18 [place]-3 Fatty Acids/Fish Oil [Eql [place]-3 Fish Oil 1,000 mg] 1 each PO DAILY 12/02 Tizanidine [Zanaflex*] 4 mg PO BID PRN tab 06/19/18 Zinc 50 mg PO DAILY 10/03/18 traMADol HCL [Ultram*] 50 mg PO Q12HP PRN tab 06/19/18 Levofloxacin [Levaquin] 500 mg PO DAILY #5 tablet 12/20/18 predniSONE [Deltasone*] 10 mg PO SEECOM #15 tab 12/20/18 - Past Medical/Surgical History Diabetic: Yes -: Neuropathy -: Diabetes mellitus type 2 insulin-dependent -: A-Fib -: COPD, severe, oxygen-dependent -: Depression with anxiety -: Hyperlipidemia -: Hypertension -: Chronic migraines -: Chronic pain -: Chronic ulcers to the lower extremity -: Chronic renal disease -: CHF, diastolic dysfunction -: APPENDECTOMY, LEFT KNEE surgery, FOOT SX, EYE surgery -: COMPLETE HYSTERECTOMY , PLATE PLACED ON right WRIST -: 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 She also has a common-law partner. She does not work. Patient is DNR. - Family History Father Medical History: Heart disease, Lung disease Mother Medical History: Lung disease, Diabetes - Social History Smoking Status: Former smoker Alcohol use: No CD- Drugs: No Caffeine use: No Review of Systems 10-point ROS is otherwise unremarkable Physical Examination General: Alert, In no apparent distress, Oriented x3 Cardiovascular: No edema, Normal pulses Capillary refill: <2 Seconds Musculoskeletal: No clubbing, No swelling, No contractures, No erythema, No tenderness, No warmth Integumentary: Diabetic ulcer (ulceration plantar left 1st mpj with hyperkeratotic border and granular base with no probing noted. No purulence. Erythema noted dorsal left foot with edema present) Neurological: Abnormal sensation Laboratory Data (last 24 hrs) 01/08/19 11:28: Sodium 136, Potassium 4.1, BUN 28 H, Creatinine 1.02, Glucose 291 H, Total Bilirubin 0.5, AST 8 L, ALT 12, Alkaline Phosphatase 95 01/08/19 11:28: WBC 14.2 H, Hgb 12.8, Hct 38.4, Plt Count 142 L Conclusions/Impression: Cellulitis left foot probable cause from plantar left foot wound. 1. awaiting results of MRI left foot 2. Bactroban with dressing to left foot wound daily 3. Will follow Physician Review: Patient Assessed, Agree with Above Assessment and Plan Time Spent Managing Pts care (In Minutes): 25
[2019-01-08] MEDS ORDERED: GLUCAGON 1 MG/VIAL IM PRN (12:45)
[2019-01-08] MEDS ORDERED: D50W 25 GM/50 ML SYRINGE IV PRN (12:45)
[2019-01-08] MEDS ORDERED: VANCOMYCIN 1.25 GM in NA CHLORIDE 0.9% 250 ML IVPB SCH (13:00)
--- NOTE | 2019-01-08 13:34 | P.HP ---
Certification for Inpatient Patient admitted to: Inpatient With expected LOS: >2 Midnights Patient will require the following post-hospital care: None Practitioner: I am a practitioner with admitting privileges, knowledge of patient current condition, hospital course, and medical plan of care. Services: Services provided to patient in accordance with Admission requirements found in Title 42 Section 412.3 of the Code of Federal Regulations Patient History Date of Service: 01/08/19 Reason for admission: cellulitis left foot History of Present Illness: 63 y/o female with a past medical history of Diabetes mellitus ,hypertension, Afib, COPD, chronic hypoxic respiratory failure on home O2 and nebulizer, chronic pain, history of MRSA infection of the foot Came to the ER with pain, swelling and redness of the left foot that has been going on for past 2 to 3 days. It is getting progressively worse. Patient has been having chronic diabetic foot ulcer to the affected area which has been followed by a iuss acoustic analyst outpatient along with wound care. Patient stated that she was doing well overall however when she started noting the redness she decided to come to the ER as it was not getting better. Patient also reports having subjective fever and chills. She also has noted the pain is radiating on to thigh along with inner aspect of the left leg. In the ER patient had imaging and lab work done which was consistent with the cellulites of the left foot along with worsening of the diabetic foot ulcer and thus was admitted for further care Allergies codeine [Codeine] Allergy (Intermediate, Verified 02/03/17 19:52) Itching/Hives/Rash flu vaccine Allergy (Uncoded 02/03/17 19:52) Anaphylaxis Home Medications: Aspirin 81 mg PO DAILY 01/30/12 Divalproex ER [Depakote *ER] 250 mg PO BID 01/19/15 Clopidogrel Bisulfate [Plavix] 1 tab PO DAILY 09/21/16 Lisinopril [Zestril] 10 mg PO DAILY 09/21/16 Pregabalin [Lyrica] 300 cap PO BID 09/21/16 Sertraline [Zoloft*] 1 tab PO DAILY 09/21/16 Insulin 70/30 NPH/Reg Human [Novolin 70/30*] 0 unit SQ SEECOM 02/03/17 Montelukast [Singulair*] 1 tab PO BEDTIME 10/21/17 Pravastatin Sodium 40 mg PO DAILY 10/21/17 Tiotropium [place] [Spiriva] 1 puff PO DAILY 10/21/17 Albuterol Sulfate [Proventil Hfa] 2 inhaler IH QID PRN 11/22/17 ALPRAZolam [Xanax*] 1 mg PO BEDTIME tab 06/19/18 Albuterol Neb [Proventil 0.083% Neb Soln] 2.5 mg NEB TID PRN #90 amp 06/19/18 Arformoterol Tartrate [Brovana] 15 mcg NEB BIDRESP #60 vial.neb 06/19/18 Furosemide [Lasix*] 20 mg PO DAILY #30 tab 06/19/18 Loperamide [Imodium*] 2 mg PO TID PRN 06/19/18 Nicotine [Nicoderm*] 21 mg TD BEDTIME #30 patch.td24 06/19/18 [place]-3 Fatty Acids/Fish Oil [Eql [place]-3 Fish Oil 1,000 mg] 1 each PO DAILY 12/02 Tizanidine [Zanaflex*] 4 mg PO BID PRN tab 06/19/18 Zinc 50 mg PO DAILY 06/19/18 traMADol HCL [Ultram*] 50 mg PO Q12HP PRN tab 06/19/18 Levofloxacin [Levaquin] 500 mg PO DAILY #5 tablet 12/20/18 predniSONE [Deltasone*] 10 mg PO SEECOM #15 tab 12/20/18 - Past Medical/Surgical History Diabetic: Yes -: Neuropathy -: Diabetes mellitus type 2 insulin-dependent -: A-Fib -: COPD, severe, oxygen-dependent -: Depression with anxiety -: Hyperlipidemia -: Hypertension -: Chronic migraines -: Chronic pain -: Chronic ulcers to the lower extremity -: Chronic renal disease -: CHF, diastolic dysfunction -: APPENDECTOMY, LEFT KNEE surgery, FOOT SX, EYE surgery -: COMPLETE HYSTERECTOMY , PLATE PLACED ON right WRIST -: 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 She also has a common-law partner. She does not work. Patient is DNR. - Family History Father -: Heart disease, Lung disease Mother -: Lung disease, Diabetes - Social History Alcohol use: No CD- Drugs: No Caffeine use: No Review of Systems 10-point ROS is otherwise unremarkable Physical Examination - Physical Exam General: Alert, In no apparent distress, Oriented x3, Obese Respiratory: Clear to auscultation bilaterally, Normal air movement Cardiovascular: Regular rate/rhythm, Normal S1 S2 Gastrointestinal: Normal bowel sounds, No tenderness Integumentary: Tenderness/swelling, Erythema, Warmth, Other (Left Foot Diabetic Ulcer with Increase Redness and swelling on the dorsal Side. ) Neurological: Normal speech, Normal strength at 5/5 x4 extr, Abnormal sensation - Studies Laboratory Data (last 24 hrs) 01/08/19 11:28: Sodium 136, Potassium 4.1, BUN 28 H, Creatinine 1.02, Glucose 291 H, Total Bilirubin 0.5, AST 8 L, ALT 12, Alkaline Phosphatase 95 01/08/19 11:28: WBC 14.2 H, Hgb 12.8, Hct 38.4, Plt Count 142 L Assessment and Plan - Problems (Diagnosis) (1) Diabetic foot ulcer Onset Date: 10/22/17 Current Visit: No Status: Chronic Plan: Diabetic foot ulcer with acute worsening in now with left lower leg cellulitis -podiatry consulted. Appreciated recommendations at this time -IV antibiotics with vanc and Zosyn -foot x-ray negative for osteomyelitis. Will get MRI of the foot at this time -will also get CRP along with lactic done -wound care consult as well Qualifiers: Diabetic foot ulcer location: toe Diabetes mellitus type: type 1 Laterality: left Non-pressure ulcer stage: with muscle involvement without evidence of necrosis Qualified Code(s): E10.621 - Type 1 diabetes mellitus with foot ulcer; L97.525 - Non-pressure chronic ulcer of other part of left foot with muscle involvement without evidence of necrosis (2) Diabetes mellitus Current Visit: No Status: Chronic Plan: Insulin sliding scale and Accu-Chek Qualifiers: Diabetes mellitus type: type 2 Diabetes mellitus matrix plater insulin use: without alf use Diabetes mellitus complication status: with neurologic complications Diabetes mellitus complication detail: with unspecified neuropathy Qualified Code(s): E11.40 - Type 2 diabetes mellitus with diabetic neuropathy, unspecified (3) CHF (congestive heart failure) Current Visit: No Status: Chronic Plan: Stable at this time will continue to monitor closely -restart home medication Qualifiers: Qualified Code(s): I50.32 - Chronic diastolic (congestive) heart failure (4) COPD (chronic obstructive pulmonary disease) Onset Date: 08/07/16 Current Visit: No Status: Chronic Plan: Nebs, oxygen at this time. Currently stable. Will monitor closely Qualifiers: COPD type: chronic bronchitis Chronic bronchitis type: unspecified Qualified Code(s): J42 - Unspecified chronic bronchitis (5) Chronic pain Onset Date: 10/13/16 Current Visit: No Status: Chronic Plan: IV and p.o. pain management at this time. Qualifiers: Chronic pain type: chronic pain syndrome (6) HTN (hypertension) Onset Date: 08/07/16 Current Visit: No Status: Chronic Qualifiers: Hypertension type: essential hypertension Qualified Code(s): I10 - Essential (primary) hypertension (7) Hyperlipidemia Onset Date: 06/19/18 Current Visit: No Status: Chronic Plan: Will restart home medication Qualifiers: Hyperlipidemia type: mixed hyperlipidemia Qualified Code(s): E78.2 - Mixed hyperlipidemia (8) Obesity Current Visit: No Status: Chronic Qualifiers: Obesity type: due to excess calories Obesity classification: adult class 1 (BMI 30 - 34.9) Serious obesity comorbidity presence: with serious comorbidity Body mass index: BMI 31.0-31.9 Qualified Code(s): E66.09 - Other obesity due to excess calories; Z68.31 - Body mass index (BMI) 31.0-31.9, adult; Z68.31 - Body mass index (BMI) 31.0-31.9, adult Discharge Plan: Home Plan to discharge in: Greater than 2 days - Advance Directives Does patient have a Living Will: Yes Does patient have a Durable POA for Healthcare: Yes - Code Status/Comfort Care Code Status Assessed: Yes Physician Review: Patient Assessed, Agree with Above Assessment and Plan Critical Care: No
[2019-01-08 14:44] VITALS: BMI 29.1
[2019-01-08] MEDS: NA CHLORIDE 0.9% 1,000 ML IV SCH (15:14)
[2019-01-08] MEDS: VANCOMYCIN 1.25 GM in NA CHLORIDE 0.9% 250 ML IVPB SCH (15:14)
[2019-01-08] MEDS: INSULIN -REGULAR HUMAN 50 UNIT/0.5 ML ML SQ SCH ×2 (16:30→21:40)
--- NOTE | 2019-01-08 16:49 | RAD REPORT ---
EXAM DESCRIPTION: MRI - Foot Left Wo Cont - 01/08/2019 4:22 pm CLINICAL HISTORY: Osteomyelitis, soft tissue wound plantar surface first toe COMPARISON: MRI October 22, 2017, left foot films January 08, 2019 TECHNIQUE: Multiplanar imaging of the left foot performed using T1 weighted, T2 fat saturation, T1 f at saturation and T2 stir sequencing. FINDINGS: Normal marrow signal pattern is present in the proximal and distal phalanges of the first toe. Second- fifth toes also show normal bone marrow pattern. No suspicious findings in the tarsal or metatarsal bones. Small joint effusion is present the first MTP joint. Edematous/inflammatory soft tissue changes are p resent around the first MTP joint and first toe. No clearly defined abscess or drainable fluid collec tions seen. IMPRESSION: No osteomyelitis findings. Soft tissue swelling around the first MTP joint and first toe. First MTP joint effusion is present. No clearly defined abscess or drainable fluid collection.
[2019-01-08] MEDS ORDERED: ALBUTEROL 2.5 MG/3 ML NEB SOL NEB PRN (16:59)
[2019-01-08] MEDS ORDERED: LOPERAMIDE HCL 2 MG CAPSULE PO PRN (16:59)
[2019-01-08] MEDS ORDERED: TRAMADOL HCL 50 MG TAB PO PRN ×2 (16:59→17:00)
[2019-01-08] MEDS ORDERED: PIPER/TAZO/NS 3.375gm 3.375 GM/100 ML BAG IVPB SCH (17:00)
[2019-01-08] MEDS ORDERED: predniSONE 10 MG TAB PO SCH (17:00)
[2019-01-08 17:18] LABS: Urine Appearance CLEAR; Urine Bilirubin NEGATIVE (NEG); Urine Blood NEGATIVE (NEG); Urine Color YELLOW; Urine Glucose NEGATIVE (NEG); Urine Protein NEGATIVE (NEG); Urine Urobilinogen 0.2 mg/dL (0.2-1.0); Urine pH 5.5 (5.0-7.0)
[2019-01-08 17:24] LABS: Urine Microscopic Reflex NO UMIC
[2019-01-08] MEDS: PIPER/TAZO/NS 3.375gm 3.375 GM/100 ML BAG IVPB SCH (17:29)
[2019-01-08] MEDS ORDERED: ALBUTEROL IH PRN (17:30)
[2019-01-08] MEDS: ARFORMOTEROL TARTRATE 15 MCG/2 ML VIAL.NEB NEB SCH (20:31)
[2019-01-08] MEDS: MUPIROCIN 2% OINT 22GM TUBE TOP SCH (21:00)
[2019-01-08] MEDS ORDERED: PREGABALIN PO SCH (21:00)
[2019-01-08] MEDS: NICOTINE 21 MG/PAT TD SCH (21:37)
[2019-01-08] MEDS: PREGABALIN 150 MG CAP PO SCH (21:38)
[2019-01-08] MEDS: clonazePAM 1 MG TAB PO SCH (21:38)
[2019-01-08] MEDS: ATORVASTATIN 10 MG TAB PO SCH (21:38)
[2019-01-08] MEDS: DIVALPROEX ER 250 MG TAB PO SCH (21:39)
[2019-01-08] MEDS: TIZANIDINE 4 MG TABLET PO PRN (21:39)
[2019-01-08] MEDS: MONTELUKAST 10 MG TAB PO SCH (21:39)
[2019-01-08] MEDS ORDERED: MORPHINE 4 MG/ML SYR IV ONE (23:44)
[2019-01-09] MEDS ORDERED: HYDROCORTISONE SUC 100 MG INJ IV ONE (00:57)
[2019-01-09] MEDS: PIPER/TAZO/NS 3.375gm 3.375 GM/100 ML BAG IVPB SCH ×3 (01:38→17:05)
[2019-01-09] MEDS ORDERED: NA CHLORIDE 0.9% 250 ML IV ONE (02:18)
[2019-01-09 04:37] LABS: Absolute Monocytes 0.4 K/uL (0.1-1.3); Absolute Neutrophil 10.2 K/uL (1.8-8.0); Basophils % 0.2 % (0-1.3); Eosinophils % 1.2 % (0-4.4); Hematocrit 33.2 % (36.0-45.0); Lymphocytes % 8.1 % (15.3-44.8); MPV 9.6 fL (7.6-11.3); Monocytes % 3.8 % (3.3-12.3); RBC Red Blood Cell Count 4.13 M/uL (3.86-4.86)
[2019-01-09 05:03] LABS: Albumin 2.9 g/dL (3.4-5.0); Bilirubin Total 0.6 mg/dL (0.2-1.0); Phosphorus 2.4 mg/dL (2.5-4.9); Potassium 4.7 mmol/L (3.5-5.1); Protein, Total 6.8 g/dL (6.4-8.2)
[2019-01-09 05:04] LABS: Magnesium 1.4 mg/dL (1.8-2.4)
[2019-01-09 05:11] LABS: Urine White Blood Cell Casts OK
[2019-01-09 05:12] LABS: Blood Morphology Comment NOT SEEN (NOT SEEN); Platelet Estimate ADEQ
[2019-01-09] MEDS ORDERED: Magnesium Sulfate 2gm IVPB 2 G/50 ML BAG IV ONE (05:49)
[2019-01-09] MEDS: ARFORMOTEROL TARTRATE 15 MCG/2 ML VIAL.NEB NEB SCH ×2 (07:45→20:00)
[2019-01-09] MEDS: INSULIN -REGULAR HUMAN 50 UNIT/0.5 ML ML SQ SCH ×5 (08:45→21:08)
[2019-01-09] MEDS: clonazePAM 1 MG TAB PO SCH ×3 (08:46→21:07)
[2019-01-09] MEDS: DIVALPROEX ER 250 MG TAB PO SCH ×2 (08:46→21:06)
[2019-01-09] MEDS: DOCOSAHEXANOIC AC/EPA 1000 MG PO SCH (08:46)
[2019-01-09] MEDS: predniSONE 10 MG TAB PO SCH ×2 (08:46→21:07)
[2019-01-09] MEDS: CLOPIDOGREL 75 MG TABLET PO SCH (08:46)
[2019-01-09] MEDS: SERTRALINE HCL 100 MG TAB PO SCH (08:46)
[2019-01-09] MEDS: ASPIRIN 81 MG CHEWABLE TABLET PO SCH (08:47)
[2019-01-09] MEDS: LISINOPRIL 10 MG TAB PO SCH (08:47)
[2019-01-09] MEDS: FUROSEMIDE 20 MG TABLET PO SCH (08:48)
[2019-01-09] MEDS: PREGABALIN 150 MG CAP PO SCH ×2 (08:48→21:07)
[2019-01-09] MEDS ORDERED: POTASSIUM PHOS IN 0.9 % NACL 15 MMOL/250 ML BAG IV ONE (09:00)
[2019-01-09] MEDS ORDERED: FISH OIL PO SCH (09:00)
[2019-01-09] MEDS ORDERED: LISINOPRIL 10 MG PO SCH (09:00)
[2019-01-09] MEDS: HOME MED 1 EA UNK (Zinc [Zinc] 50 MG) PO SCH (09:00)
[2019-01-09] MEDS: MUPIROCIN 2% OINT 22GM TUBE TOP SCH ×2 (09:00→21:00)
[2019-01-09] MEDS ORDERED: predniSONE 10 MG TAB PO SCH (09:00)
[2019-01-09] MEDS ORDERED: HOME MED 1 EA UNK (Pravastatin Sodium [Pravastatin Sodium] 40 MG) PO SCH (09:00)
[2019-01-09] MEDS ORDERED: SODIUM PHOSPHATE 15 MM in NA CHLORIDE 0.9% 250 ML IV ONE (09:00)
[2019-01-09] MEDS ORDERED: FATTY ACIDS PO SCH (09:00)
[2019-01-09] MEDS ORDERED: OMEGA PO SCH (09:00)
--- NOTE | 2019-01-09 10:30 | P.PN ---
Subjective Date of Service: 01/09/19 Chief Complaint: cellulitis left foot Pt seen and examined at bedside. Chart Reviewed. Case Dw with Podiatry. Doing well overall. Does c/o having shooting pain up the left leg. and Concern about brusing noted on the dorsal of the 1st MTP joint. Denies fever or chills Review of Systems 10-point ROS is otherwise unremarkable Physical Examination - Vital Signs Temperature: 97.4 F Blood Pressure: 111/59 Pulse: 86 Respirations: 18 Pulse Ox (%): 97 - Physical Exam General: Alert, In no apparent distress HEENT: Atraumatic, PERRLA, EOMI Neck: Supple, JVD not distended Respiratory: Clear to auscultation bilaterally, Normal air movement Cardiovascular: Regular rate/rhythm, Normal S1 S2 Gastrointestinal: Normal bowel sounds, No tenderness Integumentary: Diabetic ulcer (On the 1st MTP joint. Swelling and brusing noted. ) Neurological: Normal speech, Normal tone, Normal affect Lymphatics: No axilla or inguinal lymphadenopathy - Studies Laboratory Data (last 24 hrs) 01/08/19 11:28: Sodium 136, Potassium 4.1, BUN 28 H, Creatinine 1.02, Glucose 291 H, Total Bilirubin 0.5, AST 8 L, ALT 12, Alkaline Phosphatase 95 01/08/19 11:28: WBC 14.2 H, Hgb 12.8, Hct 38.4, Plt Count 142 L Medications List Reviewed: Yes Assessment And Plan - Current Problems (Diagnosis) (1) Diabetic foot ulcer Onset Date: 10/22/17 Current Visit: No Status: Chronic Plan: Diabetic foot ulcer with acute worsening causing left lower leg cellulitis. Marked Improvement today -podiatry consulted. Appreciated recommendations at this time -IV antibiotics with vanc and Zosyn. Continue with IV for next 24hrs -Wound culture pending. -foot x-ray negative for osteomyelitis. MRI negative for osteomylitis and Abscess -wound care consulted. Awaiting Reccs Qualifiers: Diabetic foot ulcer location: toe Diabetes mellitus type: type 1 Laterality: left Non-pressure ulcer stage: with muscle involvement without evidence of necrosis Qualified Code(s): E10.621 - Type 1 diabetes mellitus with foot ulcer; L97.525 - Non-pressure chronic ulcer of other part of left foot with muscle involvement without evidence of necrosis (2) Diabetes mellitus Current Visit: No Status: Chronic Plan: Insulin sliding scale and Accu-Chek Qualifiers: Diabetes mellitus type: type 2 Diabetes mellitus director long term care insulin use: without retirement use Diabetes mellitus complication status: with neurologic complications Diabetes mellitus complication detail: with unspecified neuropathy Qualified Code(s): E11.40 - Type 2 diabetes mellitus with diabetic neuropathy, unspecified (3) CHF (congestive heart failure) Current Visit: No Status: Chronic Plan: Stable at this time will continue to monitor closely -restarted on home medication Qualifiers: Qualified Code(s): I50.32 - Chronic diastolic (congestive) heart failure (4) COPD (chronic obstructive pulmonary disease) Onset Date: 08/07/16 Current Visit: No Status: Chronic Plan: Nebs, oxygen at this time. Currently stable. Will monitor closely Qualifiers: COPD type: chronic bronchitis Chronic bronchitis type: unspecified Qualified Code(s): J42 - Unspecified chronic bronchitis (5) Chronic pain Onset Date: 10/13/16 Current Visit: No Status: Chronic Plan: IV and p.o. pain management at this time. Qualifiers: Chronic pain type: chronic pain syndrome (6) HTN (hypertension) Onset Date: 08/07/16 Current Visit: No Status: Chronic Plan: -restarted on home medication Qualifiers: Hypertension type: essential hypertension Qualified Code(s): I10 - Essential (primary) hypertension (7) Hyperlipidemia Onset Date: 06/19/18 Current Visit: No Status: Chronic Plan: -restarted on home medication Qualifiers: Hyperlipidemia type: mixed hyperlipidemia Qualified Code(s): E78.2 - Mixed hyperlipidemia (8) Obesity Current Visit: No Status: Chronic Qualifiers: Obesity type: due to excess calories Obesity classification: adult class 1 (BMI 30 - 34.9) Serious obesity comorbidity presence: with serious comorbidity Body mass index: BMI 31.0-31.9 Qualified Code(s): E66.09 - Other obesity due to excess calories; Z68.31 - Body mass index (BMI) 31.0-31.9, adult; Z68.31 - Body mass index (BMI) 31.0-31.9, adult Discharge Plan: Home Plan to discharge in: 48 Hours - Code Status/Comfort Care Code Status Assessed: Yes Physician Review: Patient Assessed, Agree with Above Assessment and Plan Critical Care: No
[2019-01-09] MEDS: VANCOMYCIN 1.25 GM in NA CHLORIDE 0.9% 250 ML IVPB SCH (15:04)
[2019-01-09] MEDS: TIZANIDINE 4 MG TABLET PO PRN (15:11)
[2019-01-09] MEDS: NA CHLORIDE 0.9% 1,000 ML IV SCH (15:11)
[2019-01-09] MEDS: MONTELUKAST 10 MG TAB PO SCH (21:06)
[2019-01-09] MEDS: NICOTINE 21 MG/PAT TD SCH (21:06)
[2019-01-09] MEDS: ATORVASTATIN 10 MG TAB PO SCH (21:07)
[2019-01-09] MEDS: INSULIN GLARGINE 100 UNITS/ML SQ SCH (21:08)
[2019-01-09] MEDS: TRAMADOL HCL 50 MG TAB PO PRN (23:06)
[2019-01-10] MEDS: PIPER/TAZO/NS 3.375gm 3.375 GM/100 ML BAG IVPB SCH ×3 (01:43→16:19)
[2019-01-10] MEDS: TRAMADOL HCL 50 MG TAB PO PRN ×3 (05:11→22:17)
[2019-01-10 06:22] LABS: Absolute Lymphocytes (CBC) 0.8 K/uL (0.7-4.9); Absolute Monocytes 0.2 K/uL (0.1-1.3); Absolute Neutrophil 4.8 K/uL (1.8-8.0); Basophils % 0.3 % (0-1.3); Eosinophils % 0.7 % (0-4.4); Hematocrit 33.1 % (36.0-45.0); Lymphocytes % 13.8 % (15.3-44.8); MPV 9.5 fL (7.6-11.3); RBC Red Blood Cell Count 4.13 M/uL (3.86-4.86)
[2019-01-10 06:39] LABS: Albumin 2.8 g/dL (3.4-5.0); Bilirubin Total 0.3 mg/dL (0.2-1.0); Potassium 4.5 mmol/L (3.5-5.1); Protein, Total 7.1 g/dL (6.4-8.2)
[2019-01-10] MEDS: ARFORMOTEROL TARTRATE 15 MCG/2 ML VIAL.NEB NEB SCH ×2 (08:02→20:00)
--- NOTE | 2019-01-10 08:26 | P.PN ---
Subjective Date of Service: 01/10/19 Chief Complaint: cellulitis left foot Subjective: New changes (It was looking better but now it is draining) Review of Systems 10-point ROS is otherwise unremarkable Physical Examination - Vital Signs Temperature: 97.1 F Blood Pressure: 124/62 Pulse: 79 Respirations: 18 Pulse Ox (%): 96 - Physical Exam General: Alert, In no apparent distress, Oriented x3 Cardiovascular: No edema, Normal pulses Capillary refill: <2 Seconds Musculoskeletal: No clubbing, No swelling, No contractures, No erythema, No tenderness, No warmth Integumentary: Diabetic ulcer (abscess noted medial aspect of left 1st mpj. Erythema reduced dorsally left foot. Bullous lesion medial left 1st mpj. Area prepped with betadine and bedside debridement performed without anesthesia. No purulence noted. Sinus tract noted medial aspect extendind to 12 o'clock approximately 2 cm. No probing to bone noted) Neurological: Abnormal sensation - Studies Medications List Reviewed: Yes Assessment And Plan - Current Problems (Diagnosis) (1) Cellulitis of foot, left Current Visit: Yes Status: Acute - Plan Continue current iv antibiotics. Pack area bid with saline moistened gauze. If patient progresses possible discharge tomorrow with follow up in wound care on Sunday01/13/19 Plan to discharge in: 24 Hours Physician Review: Patient Assessed, Agree with Above Assessment and Plan Time Spent Managing PTS Care (In Minutes): 25
[2019-01-10] MEDS: INSULIN -REGULAR HUMAN 50 UNIT/0.5 ML ML SQ SCH ×4 (08:33→21:00)
[2019-01-10] MEDS: INSULIN GLARGINE 100 UNITS/ML SQ SCH ×2 (08:33→21:00)
[2019-01-10] MEDS: ASPIRIN 81 MG CHEWABLE TABLET PO SCH (08:34)
[2019-01-10] MEDS: predniSONE 10 MG TAB PO SCH ×2 (08:34→22:17)
[2019-01-10] MEDS: FUROSEMIDE 20 MG TABLET PO SCH (08:34)
[2019-01-10] MEDS: DOCOSAHEXANOIC AC/EPA 1000 MG PO SCH (08:34)
[2019-01-10] MEDS: clonazePAM 1 MG TAB PO SCH ×3 (08:34→22:17)
[2019-01-10] MEDS: PREGABALIN 150 MG CAP PO SCH ×2 (08:34→22:18)
[2019-01-10] MEDS: DIVALPROEX ER 250 MG TAB PO SCH ×2 (08:34→22:18)
[2019-01-10] MEDS: CLOPIDOGREL 75 MG TABLET PO SCH (08:34)
[2019-01-10] MEDS: LISINOPRIL 10 MG TAB PO SCH (08:35)
[2019-01-10] MEDS: SERTRALINE HCL 100 MG TAB PO SCH (08:35)
[2019-01-10] MEDS: MUPIROCIN 2% OINT 22GM TUBE TOP SCH ×2 (09:00→21:00)
[2019-01-10] MEDS: HOME MED 1 EA UNK (Zinc [Zinc] 50 MG) PO SCH (09:00)
[2019-01-10] MEDS: NA CHLORIDE 0.9% 1,000 ML IV SCH ×2 (12:08→18:20)
--- NOTE | 2019-01-10 12:25 | P.PN ---
Subjective Date of Service: 01/10/19 Chief Complaint: cellulitis left foot Pt seen and examined at bedside. Chart Reviewed. Case Dw with Podiatry.Denies fever or chills. S/p bedside debridement with Podiatry Review of Systems 10-point ROS is otherwise unremarkable Physical Examination - Vital Signs Temperature: 97.1 F Blood Pressure: 124/62 Pulse: 79 Respirations: 18 Pulse Ox (%): 96 - Physical Exam General: Alert, In no apparent distress HEENT: Atraumatic, PERRLA, EOMI Neck: Supple, JVD not distended Respiratory: Clear to auscultation bilaterally, Normal air movement Cardiovascular: Regular rate/rhythm, Normal S1 S2 Gastrointestinal: Normal bowel sounds, No tenderness Musculoskeletal: Erythema, Tenderness Integumentary: Diabetic ulcer (1mTP. Now Wrapped after I&D. No drainage thru bandage noted. ) Neurological: Normal speech, Normal tone, Normal affect Lymphatics: No axilla or inguinal lymphadenopathy - Studies Medications List Reviewed: Yes Assessment And Plan - Current Problems (Diagnosis) (1) Diabetic foot ulcer Onset Date: 10/22/17 Current Visit: No Status: Chronic Plan: Diabetic foot ulcer with acute worsening causing left lower leg cellulitis. Marked Improvement today -podiatry consulted. Appreciated recommendations at this time -S/p Debridement POD#0 with Podiatry -IV antibiotics with vanc and Zosyn. -Wound culture pending. -foot x-ray negative for osteomyelitis. MRI negative for osteomylitis and Abscess -wound care consulted. Qualifiers: Diabetic foot ulcer location: toe Diabetes mellitus type: type 1 Laterality: left Non-pressure ulcer stage: with muscle involvement without evidence of necrosis Qualified Code(s): E10.621 - Type 1 diabetes mellitus with foot ulcer; L97.525 - Non-pressure chronic ulcer of other part of left foot with muscle involvement without evidence of necrosis (2) Diabetes mellitus Current Visit: No Status: Chronic Plan: Insulin sliding scale and Accu-Chek Qualifiers: Diabetes mellitus type: type 2 Diabetes mellitus assisted insulin use: without laborer marine terminal use Diabetes mellitus complication status: with neurologic complications Diabetes mellitus complication detail: with unspecified neuropathy Qualified Code(s): E11.40 - Type 2 diabetes mellitus with diabetic neuropathy, unspecified (3) CHF (congestive heart failure) Current Visit: No Status: Chronic Plan: Stable at this time will continue to monitor closely -restarted on home medication Qualifiers: Qualified Code(s): I50.32 - Chronic diastolic (congestive) heart failure (4) COPD (chronic obstructive pulmonary disease) Onset Date: 08/07/16 Current Visit: No Status: Chronic Plan: Nebs, oxygen at this time. Currently stable. Will monitor closely Qualifiers: COPD type: chronic bronchitis Chronic bronchitis type: unspecified Qualified Code(s): J42 - Unspecified chronic bronchitis (5) Chronic pain Onset Date: 10/13/16 Current Visit: No Status: Chronic Plan: IV and p.o. pain management at this time. Qualifiers: Chronic pain type: chronic pain syndrome (6) HTN (hypertension) Onset Date: 08/07/16 Current Visit: No Status: Chronic Plan: -restarted on home medication Qualifiers: Hypertension type: essential hypertension Qualified Code(s): I10 - Essential (primary) hypertension (7) Hyperlipidemia Onset Date: 06/19/18 Current Visit: No Status: Chronic Plan: -restarted on home medication Qualifiers: Hyperlipidemia type: mixed hyperlipidemia Qualified Code(s): E78.2 - Mixed hyperlipidemia (8) Obesity Current Visit: No Status: Chronic Qualifiers: Obesity type: due to excess calories Obesity classification: adult class 1 (BMI 30 - 34.9) Serious obesity comorbidity presence: with serious comorbidity Body mass index: BMI 31.0-31.9 Qualified Code(s): E66.09 - Other obesity due to excess calories; Z68.31 - Body mass index (BMI) 31.0-31.9, adult; Z68.31 - Body mass index (BMI) 31.0-31.9, adult - Plan Pending Clinical Improvement. Will continue with IV abx for now. F.u with wound culture. Discharge Plan: Home Plan to discharge in: 48 Hours - Code Status/Comfort Care Code Status Assessed: Yes Physician Review: Patient Assessed, Agree with Above Assessment and Plan Critical Care: No
[2019-01-10] MEDS ORDERED: VANCOMYCIN 1.25 GM in NA CHLORIDE 0.9% 250 ML IVPB SCH (14:00)
--- NOTE | 2019-01-10 17:04 | CON ---
History Of Present Illness: This is a 63-year-old female with longstanding history of diabetes agustina elaine and tobacco use of 3 packs per day, recently changed to 5 cigarettes for a day. The patient comi ng in with left foot diabetic foot ulcer being seen and followed by roof truss builder. The patient also has significant history of congestive heart failure, hypercholesterolemia, COPD, atrial fibrillation, mi graine, arthritis, CHF, appendectomy, hysterectomy, left knee replacement, neuropathy. Social History: Tobacco, positive. Alcohol, negative. Family History: Noncontributory. Positive for heart disease, lung disease, and diabetes mellitus. Review of Systems: A 10-point review was performed. Current Medications: Include Zosyn and vancomycin. During the hospital stay on , the patient also had a MRI of her left foot which showed no signs of osteomyelitis. Soft tissue swelling around the first MTP joint and first toe, noted first MTP joint effusion was present. No clear defined abscess or drainable fluid collection noted. Physical Examination: General: This is a 63-year-old female, lying in bed, not in any acute cardiopulmonary distress. Vital Signs: Temperature 97, pulse 79, respirations 18, and blood pressure 124/62. HEENT: Unremarkable. Neck: Supple. Lungs: Basal crackles. Heart: S1, S2. Regular. Abdomen: Soft, nontender. Bowel sounds present. Extremity: Left foot under surgical dressing as the patient had a surgical debridement done earlier today. Laboratory Data: WBC is 5.9 down from 14.2, hemoglobin 11.2, and platelets 136. Chemistry shows sod ium 138, potassium 4.5, chloride 105, bicarb 25, BUN 16, creatinine 0.73, glucose down from 400 to 29 8. Cultures were not growing anything for the last 24 hours. Wound cultures are pending. Assessment And Plan: Left foot diabetic foot ulcer in a 63-year-old female with diabetic neuropathy and initially came with leukocytosis and fever. Feeling much better status post debridement, doing b deepak. Continue vancomycin and Zosyn for at least 3-4 weeks. Uncontrolled diabetes mellitus. We wi ll follow the patient closely. Thank you, Dr. Peterson and Dr. Crain, for the consult. NF/MODL Voice ID: [id number] Report ID: [id number]
[2019-01-10] MEDS ORDERED: BENZONATATE 100 MG CAP PO PRN (22:04)
[2019-01-10] MEDS: ATORVASTATIN 10 MG TAB PO SCH (22:17)
[2019-01-10] MEDS: MONTELUKAST 10 MG TAB PO SCH (22:17)
[2019-01-10] MEDS: NICOTINE 21 MG/PAT TD SCH (23:59)
[2019-01-11] MEDS: PIPER/TAZO/NS 3.375gm 3.375 GM/100 ML BAG IVPB SCH ×2 (02:15→08:36)
[2019-01-11 05:59] LABS: Absolute Lymphocytes (CBC) 1.1 K/uL (0.7-4.9); Absolute Monocytes 0.4 K/uL (0.1-1.3); Absolute Neutrophil 6.1 K/uL (1.8-8.0); Basophils % 0.4 % (0-1.3); Eosinophils % 0.8 % (0-4.4); Hematocrit 31.5 % (36.0-45.0); Lymphocytes % 14.7 % (15.3-44.8); MPV 9.3 fL (7.6-11.3); Monocytes % 4.7 % (3.3-12.3)
[2019-01-11 06:32] LABS: Albumin 2.7 g/dL (3.4-5.0); Bilirubin Total 0.3 mg/dL (0.2-1.0); Magnesium 1.8 mg/dL (1.8-2.4); Phosphorus 3.1 mg/dL (2.5-4.9); Potassium 4.9 mmol/L (3.5-5.1); Protein, Total 6.6 g/dL (6.4-8.2)
[2019-01-11] MEDS: NA CHLORIDE 0.9% 1,000 ML IV SCH ×2 (07:37→07:40)
[2019-01-11] MEDS: ARFORMOTEROL TARTRATE 15 MCG/2 ML VIAL.NEB NEB SCH (07:59)
[2019-01-11] MEDS ORDERED: MAGNESIUM SULFATE 1 gm IVPB 1 GM/100 ML BAG IV ONE (08:00)
[2019-01-11] MEDS: INSULIN -REGULAR HUMAN 50 UNIT/0.5 ML ML SQ SCH (08:33)
[2019-01-11] MEDS: SERTRALINE HCL 100 MG TAB PO SCH (08:34)
[2019-01-11] MEDS: INSULIN GLARGINE 100 UNITS/ML SQ SCH (08:34)
[2019-01-11] MEDS: DOCOSAHEXANOIC AC/EPA 1000 MG PO SCH (08:34)
[2019-01-11] MEDS: ASPIRIN 81 MG CHEWABLE TABLET PO SCH (08:34)
[2019-01-11] MEDS: DIVALPROEX ER 250 MG TAB PO SCH (08:34)
[2019-01-11] MEDS: clonazePAM 1 MG TAB PO SCH (08:35)
[2019-01-11] MEDS: TRAMADOL HCL 50 MG TAB PO PRN (08:35)
[2019-01-11] MEDS: CLOPIDOGREL 75 MG TABLET PO SCH (08:35)
[2019-01-11] MEDS: predniSONE 10 MG TAB PO SCH (08:35)
[2019-01-11] MEDS: PREGABALIN 150 MG CAP PO SCH (08:36)
[2019-01-11] MEDS: FUROSEMIDE 20 MG TABLET PO SCH (08:36)
[2019-01-11] MEDS: LISINOPRIL 10 MG TAB PO SCH (08:36)
[2019-01-11] MEDS: HOME MED 1 EA UNK (Zinc [Zinc] 50 MG) PO SCH (08:37)
[2019-01-11] MEDS: MUPIROCIN 2% OINT 22GM TUBE TOP SCH (09:00)
[2019-01-11 09:54] VITALS: O2SAT 98
[2019-01-11 11:43] VITALS: BP 152/77; TEMP 97.7
--- NOTE | 2019-01-11 12:22 | P.DS ---
Admission Date: 01/08/19 Discharge Date: 01/11/19 Disposition: ROUTINE DISCHARGE Discharge Condition: GOOD Reason for Admission: cellulitis left foot Consultations: Podiatry and ID - Problems (1) Diabetic foot ulcer Onset Date: 10/22/17 Status: Chronic Qualifiers: Diabetic foot ulcer location: toe Diabetes mellitus type: type 1 Laterality: left Non-pressure ulcer stage: with muscle involvement without evidence of necrosis Qualified Code(s): E10.621 - Type 1 diabetes mellitus with foot ulcer; L97.525 - Non-pressure chronic ulcer of other part of left foot with muscle involvement without evidence of necrosis (2) Diabetes mellitus Status: Chronic Qualifiers: Diabetes mellitus type: type 2 Diabetes mellitus crisis nurse insulin use: without crisis nurse use Diabetes mellitus complication status: with neurologic complications Diabetes mellitus complication detail: with unspecified neuropathy Qualified Code(s): E11.40 - Type 2 diabetes mellitus with diabetic neuropathy, unspecified (3) CHF (congestive heart failure) Status: Chronic Qualifiers: Qualified Code(s): I50.32 - Chronic diastolic (congestive) heart failure (4) COPD (chronic obstructive pulmonary disease) Onset Date: 08/07/16 Status: Chronic Qualifiers: COPD type: chronic bronchitis Chronic bronchitis type: unspecified Qualified Code(s): J42 - Unspecified chronic bronchitis (5) Chronic pain Onset Date: 10/13/16 Status: Chronic Qualifiers: Chronic pain type: chronic pain syndrome (6) HTN (hypertension) Onset Date: 08/07/16 Status: Chronic Qualifiers: Hypertension type: essential hypertension Qualified Code(s): I10 - Essential (primary) hypertension (7) Hyperlipidemia Onset Date: 06/19/18 Status: Chronic Qualifiers: Hyperlipidemia type: mixed hyperlipidemia Qualified Code(s): E78.2 - Mixed hyperlipidemia (8) Obesity Status: Chronic Qualifiers: Obesity type: due to excess calories Obesity classification: adult class 1 (BMI 30 - 34.9) Serious obesity comorbidity presence: with serious comorbidity Body mass index: BMI 31.0-31.9 Qualified Code(s): E66.09 - Other obesity due to excess calories; Z68.31 - Body mass index (BMI) 31.0-31.9, adult; Z68.31 - Body mass index (BMI) 31.0-31.9, adult Brief History of Present Illness: 63 y/o female with a past medical history of Diabetes mellitus ,hypertension, Afib, COPD, chronic hypoxic respiratory failure on home O2 and nebulizer, chronic pain, history of MRSA infection of the foot Came to the ER with pain, swelling and redness of the left foot that has been going on for past 2 to 3 days. It is getting progressively worse. Patient has been having chronic diabetic foot ulcer to the affected area which has been followed by a order caller outpatient along with wound care. Patient stated that she was doing well overall however when she started noting the redness she decided to come to the ER as it was not getting better. Patient also reports having subjective fever and chills. She also has noted the pain is radiating on to thigh along with inner aspect of the left leg. In the ER patient had imaging and lab work done which was consistent with the cellulites of the left foot along with worsening of the diabetic foot ulcer and thus was admitted for further care Hospital Course: Overall during the hospital stay patient remained stable Patient was initially admitted to the hospital for cellulitis secondary to diabetic foot ulcer. Podiatry was consulted who recommended patient get a IV antibiotics wound culture. Patient also had MRI done here in the hospital which was negative for osteomyelitis. Patient was started on IV vancomycin and Zosyn initially. Had marked improvement in her symptoms. Patient also had bedside debridement with podiatry and had abscess removed. Wound was packed wet-to- dry. At that time podiatry and infectious disease recommended the patient be continued on IV antibiotics for in next 24 hr. After 24 hr patient can then be discharged home on oral antibiotics. Wound cultures remained negative. Blood cultures remained negative. Patient was monitored in the hospital for 24 hr after debridement did well overall and thus was discharged home under stable condition was switched over to oral Levaquin. Patient was asked to follow up with primary care provider along with the wound healing center on Sunday. Patient also has home health set up to do daily wound dressings wet-to-dry per podiatry is recommendations. Vital Signs/Physical Exam: Temp Pulse Resp BP Pulse Ox 97.7 F 79 19 152/77 H 94 01/11/19 11:42 01/11/19 11:42 01/11/19 11:42 01/11/19 11:42 01/11/19 11:42 General: Alert, In no apparent distress HEENT: Atraumatic, PERRLA, EOMI Neck: Supple, JVD not distended Respiratory: Clear to auscultation bilaterally, Normal air movement Cardiovascular: Regular rate/rhythm, Normal S1 S2 Gastrointestinal: Normal bowel sounds, No tenderness Musculoskeletal: Erythema, Tenderness, Warmth Integumentary: No rashes Neurological: Normal speech, Normal tone, Normal affect Lymphatics: No axilla or inguinal lymphadenopathy Laboratory Data at Discharge: WBC 7.7 K/uL (4.3-10.9) D 01/11/19 05:34 Hgb 10.5 g/dL (12.0-15.0) L 01/11/19 05:34 Hct 31.5 % (36.0-45.0) L 01/11/19 05:34 Plt Count 150 K/uL (152-406) L 01/11/19 05:34 Sodium 137 mmol/L (136-145) 01/11/19 05:34 Potassium 4.9 mmol/L (3.5-5.1) 01/11/19 05:34 BUN 17 mg/dL (7-18) 01/11/19 05:34 Creatinine 0.84 mg/dL (0.55-1.3) 01/11/19 05:34 Glucose 387 mg/dL (74-106) H 01/11/19 05:34 Phosphorus 3.1 mg/dL (2.5-4.9) 01/11/19 05:34 Magnesium 1.8 mg/dL (1.8-2.4) 01/11/19 05:34 Total Bilirubin 0.3 mg/dL (0.2-1.0) 01/11/19 05:34 AST 6 U/L (15-37) L 01/11/19 05:34 ALT 32 U/L (12-78) 01/11/19 05:34 Alkaline Phosphatase 101 U/L (45-117) 01/11/19 05:34 Home Medications: Aspirin 81 mg PO DAILY 01/30/12 Divalproex ER [Depakote *ER] 250 mg PO BID 01/19/15 Clopidogrel Bisulfate [Plavix] 1 tab PO DAILY 09/21/16 Lisinopril [Zestril] 10 mg PO DAILY 09/21/16 Pregabalin [Lyrica] 300 cap PO BID 09/21/16 Sertraline [Zoloft*] 1 tab PO DAILY 09/21/16 Insulin 70/30 NPH/Reg Human [Novolin 70/30*] 0 unit SQ SEECOM 02/03/17 Montelukast [Singulair*] 1 tab PO BEDTIME 10/21/17 Pravastatin Sodium 40 mg PO DAILY 10/21/17 Tiotropium [place] [Spiriva] 1 puff PO DAILY 10/21/17 Albuterol Sulfate [Proventil Hfa] 2 inhaler IH QID PRN 11/22/17 Albuterol Neb [Proventil 0.083% Neb Soln] 2.5 mg NEB TID PRN #90 amp 06/19/18 Arformoterol Tartrate [Brovana] 15 mcg NEB BIDRESP #60 vial.neb 06/19/18 Furosemide [Lasix*] 20 mg PO DAILY #30 tab 06/19/18 Loperamide [Imodium*] 2 mg PO TID PRN 06/19/18 Nicotine [Nicoderm*] 21 mg TD BEDTIME #30 patch.td24 06/19/18 [place]-3 Fatty Acids/Fish Oil [Eql [place]-3 Fish Oil 1,000 mg] 1 each PO DAILY 12/02 Tizanidine [Zanaflex*] 4 mg PO BID PRN tab 06/19/18 Zinc 50 mg PO DAILY 06/19/18 traMADol HCL [Ultram*] 50 mg PO Q12HP PRN tab 06/19/18 predniSONE [Deltasone*] 10 mg PO SEECOM #15 tab 12/20/18 clonazePAM [Clonazepam] 1 mg PO TID 01/08/19 Levofloxacin [Levaquin] 500 mg PO DAILY #14 tablet 01/11/19 New Medications: Levofloxacin [Levaquin] 500 mg PO DAILY #14 tablet Diet: Regular Activity: Ad mercedes Followup: Chandan Peterson JR, DPM [ASSOCIATE-ACTIVE - CAN ADMIT] - 01/13/19 (At [facility])
[2019-01-11] MEDS ORDERED: DOCUSATE NA 100 MG CAP PO SCH (21:00)
== END 2019-01-11 12:13 | disposition home or self-care (01) | DRG 638 ==
LOC: ER 10:44 → ERHOLD 12:16 → 4TH 13:45
PROVIDERS: ADMIT Family Medicine; ATTEND Family Medicine
PROC: 0HDNXZZ Extraction of Left Foot Skin, External Approach (ICD-10-PCS; principal; 2019-01-10)
DX: E11.628 Type 2 diabetes mellitus with other skin complications (principal); L03.116 Cellulitis of left lower limb; L97.525 Non-pressure chronic ulcer of other part of left foot with muscle involvement without evidence of necrosis; I50.32 Chronic diastolic (congestive) heart failure; J96.11 Chronic respiratory failure with hypoxia; I13.0 Hypertensive heart and chronic kidney disease with heart failure and stage 1 through stage 4 chronic kidney disease, or unspecified chronic kidney disease; E11.621 Type 2 diabetes mellitus with foot ulcer; E11.40 Type 2 diabetes mellitus with diabetic neuropathy, unspecified; E11.22 Type 2 diabetes mellitus with diabetic chronic kidney disease; E11.65 Type 2 diabetes mellitus with hyperglycemia; N18.9 Chronic kidney disease, unspecified; J44.9 Chronic obstructive pulmonary disease, unspecified; I48.91 Unspecified atrial fibrillation; F41.8 Other specified anxiety disorders; E78.5 Hyperlipidemia, unspecified; G89.4 Chronic pain syndrome; E66.09 Other obesity due to excess calories; Z99.81 Dependence on supplemental oxygen; Z68.31 Body mass index [BMI] 31.0-31.9, adult; Z79.82 Long term (current) use of aspirin; Z79.4 Long term (current) use of insulin; Z86.14 Personal history of Methicillin resistant Staphylococcus aureus infection; Z88.5 Allergy status to narcotic agent; Z88.7 Allergy status to serum and vaccine
CPT/HCPCS: 36415; 80048; 80053; 80076; 80202; 81003; 82947; 82962; 83605; 83735; 84100; 84145; 85025; 86140; 87040; 87070; 87075; 87077; 87186; 87205; 94640; 96365; 96375; 99285; J1720; J2405; J2543; J3010; J3475; J7030; J7512; J7605

== ENCOUNTER 2019-04-17 10:30 | Inpatient (IN) | payer OTHER ==
[2019-04-17] MEDS ORDERED: ONDANSETRON 4 MG/2 ML VIAL ONE (10:44)
[2019-04-17] MEDS ORDERED: CEFTRIAXONE/SWI 1gm 1 GM/10 ML SYR ONE (10:44)
[2019-04-17 10:53] LABS: Absolute Lymphocytes (CBC) 2.5 K/uL (0.7-4.9); Basophils % 0.4 % (0-1.3); Hematocrit 33.8 % (36.0-45.0); Lymphocytes % 13.8 % (15.3-44.8); MPV 9.3 fL (7.6-11.3); RBC Red Blood Cell Count 4.28 M/uL (3.86-4.86)
--- NOTE | 2019-04-17 10:57 | RAD REPORT ---
EXAM DESCRIPTION: Jaime Single View04/17/2019 10:49 am CLINICAL HISTORY: Cough COMPARISON: December 2018 FINDINGS: Mild left basilar opacity. Mild right basilar lung opacities may be present as well. The heart is normal size IMPRESSION: Mild left and possible mild right basilar lung opacities may represent pneumonia
[2019-04-17 11:00] LABS: Blood Gas Oxyhemoglobin 84.5 % (94-97)
[2019-04-17] MEDS ORDERED: LEVALBUTEROL 1.25 MG/3 ML NEB ONE (11:06)
[2019-04-17 11:12] LABS: Protime INR 1.18
[2019-04-17 11:20] LABS: ALT/SGPT 14 U/L (12-78); AST/SGOT 6 U/L (15-37); Albumin 3.1 g/dL (3.4-5.0); Alkaline Phosphatase 85 U/L (45-117); BUN Blood Urea Nitrogen 27 mg/dL (7-18); Bicarbonate 25 mmol/L (21-32); Bilirubin Direct 0.1 mg/dL (0-0.2); Bilirubin Total 0.6 mg/dL (0.2-1.0); CKMB Creatine Kinase MB 2.1 ng/mL (0.3-3.6); Creatine Phosphokinase 107 U/L (26-192); Glucose Level 230 mg/dL (74-106); Lipase 76 U/L (73-393); Potassium 4.1 mmol/L (3.5-5.1); Protein, Total 7.9 g/dL (6.4-8.2); Sodium Level 137 mmol/L (136-145); Troponin (Emerg Dept Use Only) < 0.02 ng/mL (0.0-0.045)
--- NOTE | 2019-04-17 12:29 | ER ---
Nurse's Notes [facility] Name: Nakia Turcios Age: 63 yrs Sex: Female : 1955 Arrival Date: 04/17/2019 Time: 10:35 Bed 3 Private MD: Diagnosis: Pneumonia, unspecified organism Presentation: 04/17 10:25 Presenting complaint: EMS states: called out for dyspnea, chest pain, hypotensive. Pt sv wears home O2 with long NC tubing. O2 sat 83% 3L NC, BP 140/70, +TILT, 92% on breathing tx. Transition of care: patient was not received from another setting of care. Onset of symptoms was April 17, 2019. Risk Assessment: Do you want to hurt yourself or someone else? Patient reports no desire to harm self or others. Initial Sepsis Screen: Does the patient meet any 2 criteria? RR > 20 per min. HR > 90 bpm. Yes Does the patient have a suspected source of infection? Yes: Productive cough/pneumonia If YES to both, name of provider notified: Phillip Hurtado MD. Care prior to arrival: Medication(s) given: Albuterol Neb x 2, ASA, 81 mg, x 4, Atrovent Neb x 2, solumedrol 125 mg IVP IV initiated. 18 GA, in the left forearm, Glucose check: 247 Med neb given. Oxygen administered. via nasal cannula, via a nebulizer mask. 10:25 Acuity: JESUSITA 2 sv 10:25 Method Of Arrival: EMS: [facility] sv Triage Assessment: 10:25 General: Appears distressed, uncomfortable, unkempt, Behavior is cooperative, sv appropriate for age, anxious, Smells of BM. Pain: Denies pain. Neuro: Level of Consciousness is awake, alert, obeys commands, Oriented to person, place, time, situation, Moves all extremities. Respiratory: Reports shortness of breath at rest on exertion labored breathing Airway is patent Respiratory effort is even, labored, Respiratory pattern is symmetrical, tachypnea Onset: The symptoms/episode began/occurred this morning, the patient has moderate shortness of breath. Derm: Skin is normal. Historical: - Allergies: 10:55 Codeine (Anaphylaxis); sv 10:55 FLU VACCINE; sv - Home Meds: 12:47 Albuterol Inhl 4 times per day [Active]; Anoro Ellipta 62.5-25 mcg/actuation inhalation sv dsdv 1 puff once daily [Active]; Arginaid 4.5 gram-156 mg/9.2 gram oral pwpk daily [Active]; ascorbic acid (vitamin C) 500 mg tab twice a day [Active]; alprazolam 1 mg Oral tab 3 times per day for Anxiety [Active]; Depakote ER 250 mg Oral Tb24 twice a day [Active]; Fish Oil 1,000 mg oral cap daily [Active]; Insulin: Novolin 70/30 130 units in am and 105 at night Sub-Q [Active]; Lasix 20 mg Oral tab 1 tab once daily [Active]; Lyrica 300mg Oral 2 times per day [Active]; clopidogrel 75 mg Oral tab [Active]; pravastatin 40 mg Oral tab 1 tab once daily [Active]; sertraline 100 mg Oral tab 1 tab once daily [Active]; lisinopril 10 mg Oral tab 1 tab once daily [Active]; tizanidine 2 mg oral cap twice a day [Active]; - PMHx: 10:55 CHF; COPD; Diabetes - IDDM; Hypertension; neuropathy; sv - PSHx: 10:55 Knee surgery; Appendectomy; wrist; R foot; cataract; pain pump; sv - Immunization history:: Adult Immunizations up to date. - Ebola Screening: : No symptoms or risks identified at this time. - Social history:: Smoking status: Patient uses tobacco products, smokes one-half pack cigarettes per day. Screenin:02 Abuse screen: Denies threats or abuse. Denies injuries from another. Nutritional sv screening: No deficits noted. Tuberculosis screening: No symptoms or risk factors identified. Fall Risk No fall in past 12 months (0 pts). No secondary diagnosis (0 pts). IV access (20 points). Ambulatory Aid- None/Bed Rest/Nurse Assist (0 pts). Gait- Normal/Bed Rest/Wheelchair (0 pts) Mental Status- Oriented to own ability (0 pts). Total Saucedo Fall Scale indicates No Risk (0-24 pts). Assessment: 11:15 Reassessment: Patient appears in no apparent distress at this time. Patient and/or sv family updated on plan of care and expected duration. Pain level reassessed. Patient is alert, oriented x 3, equal unlabored respirations, skin warm/dry/pink. Patient states symptoms have improved. 12:30 Reassessment: Patient appears in no apparent distress at this time. Patient and/or sv family updated on plan of care and expected duration. Pain level reassessed. Patient is alert, oriented x 3, equal unlabored respirations, skin warm/dry/pink. 13:19 Reassessment: Patient appears in no apparent distress at this time. Patient and/or sv family updated on plan of care and expected duration. Pain level reassessed. Patient is alert, oriented x 3, equal unlabored respirations, skin warm/dry/pink. Patient states symptoms have improved. 15:00 Reassessment: Patient appears in no apparent distress at this time. Patient and/or sv family updated on plan of care and expected duration. Pain level reassessed. Patient is alert, oriented x 3, equal unlabored respirations, skin warm/dry/pink. 16:00 Reassessment: Patient appears in no apparent distress at this time. Patient and/or sv family updated on plan of care and expected duration. Pain level reassessed. Patient is alert, oriented x 3, equal unlabored respirations, skin warm/dry/pink. Patient states symptoms have improved. Vital Signs: 10:31 BP 131 / 58; Pulse 96; Resp 26; Temp 99.2(O); Pulse Ox 93% on Nebulizer Mask; Weight 70 sv kg; Height 5 ft. 3 in. (160.02 cm); 11:15 BP 90 / 68; Pulse 99; Resp 24; Pulse Ox 93% on Nebulizer Mask; sv 11:23 BP 90 / 58; Pulse 96; Resp 22; Pulse Ox 92% on 50% Venturi mask; hb 11:25 Pulse Ox 92% on 50% Venturi mask; sv 12:30 BP 90 / 48; Pulse 89; Resp 19; Pulse Ox 92% on 50% Venturi mask; sv 13:25 BP 94 / 42; Pulse 87; Resp 19; Temp 98.2; Pulse Ox 92% on 50% Venturi mask; sv 14:30 BP 112 / 54; Pulse 84; Resp 16; Pulse Ox 94% on 50% Venturi mask; sv 16:00 BP 113 / 58; Pulse 88; Resp 18; Pulse Ox 93% on 50% Venturi mask; sv 10:31 Body Mass Index 27.34 (70.00 kg, 160.02 cm) sv ED Course: 10:25 Maintain EMS IV. Dressing intact. Good blood return noted. Site clean \T\ dry. Gauge \T\ sv site: 18 G L FA. 10:25 chicken handler on. Pulse ox on. NIBP on. Head of bed elevated. sv 10:35 Patient arrived in ED. hb 10:35 Phillip Hurtado MD is Attending Physician. kdr 10:40 Arm band placed on. sv 10:40 Patient has correct armband on for positive identification. Bed in low position. Call sv light in reach. Side rails up X2. 10:41 Initial lab(s) drawn, by me, sent to lab. First set of blood cultures drawn by me. sv Inserted saline lock: 20 gauge in right forearm, using aseptic technique. Blood collected. Flushed right forearm with 5 ml normal saline. 10:42 Margaret Roy RN is Primary Nurse. sv 10:43 EKG done, by technical consultant. reviewed by Phillip Hurtado MD. sm3 10:47 X-ray completed. Portable x-ray completed in exam room. Patient tolerated procedure jb2 well. 10:49 Chest Single View XRAY In Process Unspecified. EDMS 10:54 Triage completed. sv 10:57 Basic Metabolic Panel Sent. sv 10:57 Blood Culture Adult (2) Sent. sv 10:57 BIPAP Sent. sv 11:00 Second set of blood cultures drawn by me. sv 11:02 ABG drawn. by RT staff, on oxygen. sv 12:28 Torie Haq MD is Hospitalizing Provider. kdr 15:38 Awaiting bed assignment. sv 16:23 No provider procedures requiring assistance completed. Patient admitted, IV remains in sv place. intact. 16:34 Urine Dipstick--Ancillary (enter results) Sent. sv Administered Medications: 10:50 CANCELLED (Physician Discretion): NS 0.9% (30 ml/kg) 30 ml/kg IV at bolus once; Sepsis sv Protocol 10:50 Drug: Zofran 4 mg Route: IVP; Site: right forearm; sv 11:16 Follow up: Response: No adverse reaction sv 11:03 Drug: Rocephin - (cefTRIAXone) 1 grams Route: IVPB; Infused Over: 30 mins; Site: right sv forearm; 11:05 Follow up: Response: No adverse reaction; IV Status: Completed infusion; IV Intake: sv 10ml ; given IVP per pharmacy 11:15 Drug: Xopenex 1.25 mg {Note: given by Korin LOVELACE} Route: Inhalation; sv 13:19 Drug: Zithromax 500 mg Route: IVPB; Infused Over: 1 hrs; Site: right forearm; sv 14:52 Follow up: Response: No adverse reaction; IV Status: Completed infusion; IV Intake: sv 250ml Point of Care Testing: Blood Glucose: 10:41 Blood Glucose: 269 mg/dL; sv Ranges: Intake: 11:05 IV: 10ml; Total: 10ml. sv 14:52 IV: 250ml; Total: 260ml. sv Output: 11:01 Stool: 1 (Loose Stool) ; Total: 0ml. hb 11:22 Stool: 1 (Loose Stool) ; Total: 0ml. hb 12:17 Stool: 1 (Loose Stool) ; Total: 0ml. hb Outcome: 12:29 Decision to Hospitalize by Provider. kdr 16:28 Admitted to Tele accompanied by tech, via wheelchair, room 206, with oxygen, with sv chart, Report called to Bahman CALZADA 16:28 Condition: stable 16:28 Instructed on the need for admit. 16:38 Patient left the ED. hb Signatures: Dispatcher [employer] Margaret Schroeder, RN Phillip Olvera MD MD kdr Buechter, Jesse jb2 Kriss De Paz RN RN Alicia Saab sm3 Corrections: (The following items were deleted from the chart) 11:04 10:31 BP 131 / 58; Pulse 96bpm; Resp 26bpm; Pulse Ox 93% Nebulizer Mask; Temp 99.2F sv Oral; sv 16:28 13:25 BP 94 / 42; Pulse 87bpm; Resp 19bpm; Pulse Ox 92% 02 50% Venturi mask; sv sv
--- NOTE | 2019-04-17 12:29 | EDPHYS ---
Physician Documentation [facility] Name: Nakia Turcios Age: 63 yrs Sex: Female : 1955 Arrival Date: 04/17/2019 Time: 10:35 Bed 3 Private MD: ED Physician Phillip Hurtado HPI: 04/18 07:02 This 63 yrs old Female presents to ER via EMS with complaints of Shortness Of kdr Breath. 07:02 The patient has shortness of breath at rest, with light activity. Onset: The kdr symptoms/episode began/occurred gradually, Last few days . Duration: The symptoms are continuous, and are steadily getting worse. The patient's shortness of breath is aggravated by coughing, exertion, light activity. Associated signs and symptoms: Pertinent positives: non-productive cough. Severity of symptoms: At their worst the symptoms were mild moderate in the emergency department the symptoms are unchanged. The patient has experienced similar episodes in the past, chronically. The patient has not recently seen a physician. Historical: - Allergies: 04/17 10:55 Codeine (Anaphylaxis); sv 10:55 FLU VACCINE; sv - Home Meds: 12:47 Albuterol Inhl 4 times per day [Active]; Anoro Ellipta 62.5-25 mcg/actuation inhalation sv dsdv 1 puff once daily [Active]; Arginaid 4.5 gram-156 mg/9.2 gram oral pwpk daily [Active]; ascorbic acid (vitamin C) 500 mg tab twice a day [Active]; alprazolam 1 mg Oral tab 3 times per day for Anxiety [Active]; Depakote ER 250 mg Oral Tb24 twice a day [Active]; Fish Oil 1,000 mg oral cap daily [Active]; Insulin: Novolin 70/30 130 units in am and 105 at night Sub-Q [Active]; Lasix 20 mg Oral tab 1 tab once daily [Active]; Lyrica 300mg Oral 2 times per day [Active]; clopidogrel 75 mg Oral tab [Active]; pravastatin 40 mg Oral tab 1 tab once daily [Active]; sertraline 100 mg Oral tab 1 tab once daily [Active]; lisinopril 10 mg Oral tab 1 tab once daily [Active]; tizanidine 2 mg oral cap twice a day [Active]; - PMHx: 10:55 CHF; COPD; Diabetes - IDDM; Hypertension; neuropathy; sv - PSHx: 10:55 Knee surgery; Appendectomy; wrist; R foot; cataract; pain pump; sv - Immunization history:: Adult Immunizations up to date. - Ebola Screening: : No symptoms or risks identified at this time. - Social history:: Smoking status: Patient uses tobacco products, smokes one-half pack cigarettes per day. ROS: 04/18 07:02 Constitutional: Negative for fever, chills, and weight loss, Eyes: Negative for injury, kdr pain, redness, and discharge, ENT: Negative for injury, pain, and discharge, Neck: Negative for injury, pain, and swelling, Cardiovascular: Negative for chest pain, palpitations, and edema, Abdomen/GI: Negative for abdominal pain, nausea, vomiting, diarrhea, and constipation, Back: Negative for injury and pain, : Negative for injury, bleeding, discharge, and swelling, MS/Extremity: Negative for injury and deformity, Skin: Negative for injury, rash, and discoloration, Neuro: Negative for headache, weakness, numbness, tingling, and seizure activity. Psych: Negative for depression, anxiety, suicide ideation, homicidal ideation, and hallucinations, Allergy/Immunology: Negative for hives, rash, and allergies, Endocrine: Negative for neck swelling, polydipsia, polyuria, polyphagia, and marked weight changes, Hematologic/Lymphatic: Negative for swollen nodes, abnormal bleeding, and unusual bruising. Respiratory: Positive for cough, "sounds productive", shortness of breath. Exam: 07:02 Constitutional: This is a well developed, well nourished patient who is awake, alert, kdr and in no acute distress. Head/Face: Normocephalic, atraumatic. Eyes: Pupils equal round and reactive to light, extra-ocular motions intact. Lids and lashes normal. Conjunctiva and sclera are non-icteric and not injected. Cornea within normal limits. Periorbital areas with no swelling, redness, or edema. Neck: Trachea midline, no thyromegaly or masses palpated, and no cervical lymphadenopathy. Supple, full range of motion without nuchal rigidity, or vertebral point tenderness. No Meningismus. Chest/axilla: Normal chest wall appearance and motion. Nontender with no deformity. No lesions are appreciated. Cardiovascular: Regular rate and rhythm with a normal S1 and S2. No gallops, murmurs, or rubs. Normal PMI, no JVD. No pulse deficits. Abdomen/GI: Soft, non-tender, with normal bowel sounds. No distension or tympany. No guarding or rebound. No evidence of tenderness throughout. Back: No spinal tenderness. No costovertebral tenderness. Full range of motion. Skin: Warm, dry with normal turgor. Normal color with no rashes, no lesions, and no evidence of cellulitis. MS/ Extremity: Pulses equal, no cyanosis. Neurovascular intact. Full, normal range of motion. Neuro: Awake and alert, GCS 15, oriented to person, place, time, and situation. Cranial nerves II-XII grossly intact. Motor strength 5/5 in all extremities. Sensory grossly intact. Cerebellar exam normal. Normal gait. Psych: Awake, alert, with orientation to person, place and time. Behavior, mood, and affect are within normal limits. 07:02 Respiratory: the patient does not display signs of respiratory distress, Respirations: shallow respirations, tachypnea, Breath sounds: rales, that are mild, rhonchi, that are mild, are scattered, stridor, is not appreciated. Vital Signs: 04/17 10:31 BP 131 / 58; Pulse 96; Resp 26; Temp 99.2(O); Pulse Ox 93% on Nebulizer Mask; Weight 70 sv kg; Height 5 ft. 3 in. (160.02 cm); 11:15 BP 90 / 68; Pulse 99; Resp 24; Pulse Ox 93% on Nebulizer Mask; sv 11:23 BP 90 / 58; Pulse 96; Resp 22; Pulse Ox 92% on 50% Venturi mask; hb 11:25 Pulse Ox 92% on 50% Venturi mask; sv 12:30 BP 90 / 48; Pulse 89; Resp 19; Pulse Ox 92% on 50% Venturi mask; sv 13:25 BP 94 / 42; Pulse 87; Resp 19; Temp 98.2; Pulse Ox 92% on 50% Venturi mask; sv 14:30 BP 112 / 54; Pulse 84; Resp 16; Pulse Ox 94% on 50% Venturi mask; sv 16:00 BP 113 / 58; Pulse 88; Resp 18; Pulse Ox 93% on 50% Venturi mask; sv 10:31 Body Mass Index 27.34 (70.00 kg, 160.02 cm) sv MDM: 12:29 Patient medically screened. kdr 04/18 07:02 Data reviewed: vital signs, nurses notes, lab test result(s), radiologic studies. kdr Counseling: I had a detailed discussion with the patient and/or guardian regarding: the historical points, exam findings, and any diagnostic results supporting the discharge/admit diagnosis, lab results, radiology results, the need for further work-up and treatment in the hospital. 04/17 10:35 Order name: Basic Metabolic Panel kdr 04/17 10:35 Order name: Blood Culture Adult (2) kdr 04/17 10:35 Order name: CBC with Diff; Complete Time: 12:18 kdr 04/17 10:35 Order name: Ckmb; Complete Time: 12:18 kdr 04/17 10:35 Order name: CPK; Complete Time: 12:18 kdr 04/17 10:35 Order name: Lactate; Complete Time: 12:18 kdr 04/17 10:35 Order name: LFT's; Complete Time: 12:18 kdr 04/17 10:35 Order name: Lipase; Complete Time: 12:18 kdr 04/17 10:35 Order name: Procalcitonin; Complete Time: 12:18 kdr 04/17 10:35 Order name: Protime (+inr); Complete Time: 12:18 kdr 04/17 10:35 Order name: Ptt, Activated; Complete Time: 12:18 kdr 04/17 10:35 Order name: Troponin (emerg Dept Use Only); Complete Time: 12:18 kdr 04/17 10:35 Order name: Urine Microscopic Only kdr 04/17 10:36 Order name: Basic Metabolic Panel; Complete Time: 12:18 EDMS 04/17 10:35 Order name: Chest Single View XRAY; Complete Time: 12:18 kdr 04/17 10:35 Order name: Accucheck; Complete Time: 10:57 kdr 04/17 10:35 Order name: Cardiac monitoring; Complete Time: 10:57 kdr 04/17 10:35 Order name: EKG - Nurse/Tech; Complete Time: 10:57 kdr 04/17 10:35 Order name: IV Saline Lock - Large Bore; Complete Time: 10:57 kdr 04/17 10:35 Order name: Labs collected and sent; Complete Time: 10:57 kdr 04/17 10:36 Order name: Blood Culture EDMS 04/17 10:44 Order name: BIPAP kdr 04/17 10:44 Order name: ABG; Complete Time: 12:18 kdr 04/17 10:44 Order name: Glucose, Ancillary Testing; Complete Time: 12:18 EDMS 04/17 16:32 Order name: Urine Dipstick--Ancillary (enter results) eb 04/17 10:35 Order name: O2 Per Protocol; Complete Time: 10:57 kdr 04/17 10:35 Order name: O2 Sat Monitoring; Complete Time: 10:57 kdr 04/17 10:35 Order name: Urine Dipstick-Ancillary (obtain specimen); Complete Time: 16:34 kdr Administered Medications: 04/17 10:50 CANCELLED (Physician Discretion): NS 0.9% (30 ml/kg) 30 ml/kg IV at bolus once; Sepsis sv Protocol 10:50 Drug: Zofran 4 mg Route: IVP; Site: right forearm; sv 11:16 Follow up: Response: No adverse reaction sv 11:03 Drug: Rocephin - (cefTRIAXone) 1 grams Route: IVPB; Infused Over: 30 mins; Site: right sv forearm; 11:05 Follow up: Response: No adverse reaction; IV Status: Completed infusion; IV Intake: sv 10ml ; given IVP per pharmacy 11:15 Drug: Xopenex 1.25 mg {Note: given by Korin LOVELACE} Route: Inhalation; sv 13:19 Drug: Zithromax 500 mg Route: IVPB; Infused Over: 1 hrs; Site: right forearm; sv 14:52 Follow up: Response: No adverse reaction; IV Status: Completed infusion; IV Intake: sv 250ml Point of Care Testing: Blood Glucose: 10:41 Blood Glucose: 269 mg/dL; sv Ranges: Critical Glucose Levels:Adult <50 mg/dl or >400 mg/dl <40 mg/dl or >180 mg/dl Disposition: 04/17/19 12:29 Hospitalization ordered by Torie Haq for Inpatient Admission. Preliminary diagnosis is Pneumonia, unspecified organism. - Bed requested for Telemetry/MedSurg (Inpatient). - Status is Inpatient Admission. hb - Condition is Fair. - Problem is new. - Symptoms have improved. UTI on Admission? No Signatures: Dispatcher [employer] EDMargaret Cardenas, RN RN Phillip Hurtado MD MD [facility] Kriss De Paz RN RN Lor Bond Corrections: (The following items were deleted from the chart) 10:50 10:35 NS 0.9% (30 ml/kg) 30 ml/kg IV at bolus once; Sepsis Protocol ordered. kdr sv 16:09 12:29 Hospitalization Ordered by Torie Haq MD for Inpatient Admission. Preliminary eb diagnosis is Pneumonia, unspecified organism. Bed requested for Telemetry/MedSurg (Inpatient). Status is Inpatient Admission. Condition is Fair. Problem is new. Symptoms have improved. UTI on Admission? No. kdr 16:38 16:09 04/17/2019 12:29 Hospitalization Ordered by Torie Haq MD for Inpatient Admission. Preliminary diagnosis is Pneumonia, unspecified organism. Bed requested for Telemetry/MedSurg (Inpatient). Status is Inpatient Admission. Condition is Fair. Problem is new. Symptoms have improved. UTI on Admission? No. eb
[2019-04-17] MEDS ORDERED: AZITHROMYCIN IV 500 MG in NA CHLORIDE 0.9% 250 ML IVPB ONE (13:00)
[2019-04-17 16:57] LABS: Urine Bacteria <20 /HPF (<20); Urine RBC <5 /HPF (NONE SEEN)
[2019-04-17 16:58] LABS: Urine Culture Reflex Order REFLEXED; Urine Mucus 2+ /HPF (NONE SEEN)
--- NOTE | 2019-04-17 17:14 | P.HP ---
Certification for Inpatient Patient admitted to: Inpatient Practitioner: I am a practitioner with admitting privileges, knowledge of patient current condition, hospital course, and medical plan of care. Services: Services provided to patient in accordance with Admission requirements found in Title 42 Section 412.3 of the Code of Federal Regulations Patient History Date of Service: 04/17/19 Reason for admission: Shortness of breath History of Present Illness: This is a 63 yr old female with multiple comorbidities including DM2, COPD, CHF , PVD, diabetic ulcer, chronic respiratory failure on home oxygen, admitted for progressively worsening shortness of breath for the past few days with increased oxygen demand. Patient also states that she has had subjective fevers. Her regular home medications did not help therefore she came to the ED. In the Emergency room, her BP was 131/58, HR 96, RR 26, afebrile at 99.2, 93% on neb, and a BMI of 27.5. Her labs were remarkable for a WBC count of 18.1, a negative pro-santy and lactic acid level. Her cxr was with evidence of left sided pneumonia. At the time of my exam, she was alert, oriented x3, in mild respiratory distress with increased oxygen demand She was admitted for acute respirtaory failure with hypoxia and pneumonia. Allergies codeine [Codeine] Allergy (Intermediate, Verified 01/08/19 14:45) Itching/Hives/Rash flu vaccine Allergy (Uncoded 02/03/17 19:52) Anaphylaxis Home medications list reviewed: Yes Home Medications: Aspirin 81 mg PO DAILY 01/30/12 Divalproex ER [Depakote *ER] 250 mg PO BID 01/19/15 Clopidogrel Bisulfate [Plavix] 1 tab PO DAILY 09/21/16 Lisinopril [Zestril] 10 mg PO DAILY 09/21/16 Pregabalin [Lyrica] 300 cap PO BID 09/21/16 Sertraline [Zoloft*] 1 tab PO DAILY 09/21/16 Insulin 70/30 NPH/Reg Human [Novolin 70/30*] 0 unit SQ SEECOM 02/03/17 Montelukast [Singulair*] 1 tab PO BEDTIME 10/21/17 Pravastatin Sodium 40 mg PO BEDTIME 10/21/17 Albuterol Sulfate [Proventil Hfa] 2 inhaler IH QID PRN 11/22/17 Loperamide [Imodium*] 2 mg PO TID PRN 06/19/18 Albuterol Neb [Proventil 0.083% Neb Soln] 2.5 mg NEB QID 04/17/19 Arginine/Ascorbate Sod/Adrianne AC [Arginaid Powder] 1 packet PO DAILY 04/17/19 Ascorbic Acid [Vitamin C] 500 mg PO BID 04/17/19 Furosemide [Lasix] 20 mg PO DAILY 04/17/19 [place]-3/Dha/Epa/Fish Oil [Fish Oil 1,000 mg Softgel] 1 cap PO DAILY 04/17/19 Umeclidinium Brm/Vilanterol Tr [Anoro Ellipta 62.5-25 Mcg INH] 1 puff IN DAILY 04/17/19 - Past Medical/Surgical History Diabetic: Yes -: Neuropathy -: Diabetes mellitus type 1 insulin-dependent -: A-Fib -: COPD, severe, 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 She also has a common-law partner. She does not work. Patient is DNR. - Family History Father -: Heart disease, Lung disease Mother -: Lung disease, Diabetes - Social History Alcohol use: No CD- Drugs: No Caffeine use: Yes Review of Systems 10-point ROS is otherwise unremarkable Physical Examination - Vital Signs Temperature: 98.2 F Blood Pressure: 112/54 Pulse: 84 Respirations: 16 - Physical Exam General: Alert, In no apparent distress, Oriented x3 HEENT: Atraumatic, PERRLA, Mucous membr. moist/pink, EOMI, Sclerae nonicteric Neck: Supple, 2+ carotid pulse no bruit, No LAD, Without JVD or thyroid abnormality Respiratory: Dull, Crackles/rales Cardiovascular: Regular rate/rhythm, Normal S1 S2 Gastrointestinal: Normal bowel sounds, No tenderness Musculoskeletal: No tenderness Integumentary: Diabetic ulcer (Left foot) Neurological: Normal gait, Normal speech, Normal strength at 5/5 x4 extr, Normal tone, Normal affect Lymphatics: No axilla or inguinal lymphadenopathy - Studies Laboratory Data (last 24 hrs) 04/17/19 10:41: PT 13.8 H, INR 1.18, APTT 27.5 04/17/19 10:41: WBC 18.1 H, Hgb 11.1 L, Hct 33.8 L, Plt Count 154 04/17/19 10:41: Sodium 137, Potassium 4.1, BUN 27 H, Creatinine 1.02, Glucose 230 H, Total Bilirubin 0.6, AST 6 L, ALT 14, Alkaline Phosphatase 85, Lipase 76 Assessment and Plan - Problems (Diagnosis) (1) Acute respiratory failure Current Visit: Yes Status: Acute Plan: Likely secondary to PNA, COPD exacerbation - Will provide supportive care with oxygen as needed. Wean as tolerated. - Bi-Pap if needed. - Treat underlying disease. Qualifiers: Respiratory failure complication: hypoxia Qualified Code(s): J96.01 - Acute respiratory failure with hypoxia (2) Pneumonia Onset Date: 10/13/16 Current Visit: Yes Status: Acute Plan: CURB 65 score of 1; PSI score of 103, Class IV, moderate severity with a 8.2-9.3 % mortality risk. - Will start IV antibiotics with Rocephin and azithromycin - Provide supportive care as above. - Will get CT scan if no improvement noted. Qualifiers: Pneumonia type: due to unspecified organism Laterality: left Lung location: lower lobe of lung Qualified Code(s): J18.1 - Lobar pneumonia, unspecified organism (3) COPD exacerbation Onset Date: 10/18/15 Current Visit: No Status: Acute Plan: Likely secondary to underlying PNA - Breathing treatments as needed - Oxygen as needed. Will wean to home oxygen level as tolerated. - Patient on home oxygen of 3L - Start IV steroids (4) Diabetes mellitus Current Visit: No Status: Chronic Plan: Accu-checks and sliding scale insulin. - Will restart home medications as tolerated. Will adjust medications as needed. Qualifiers: Diabetes mellitus type: type 2 Diabetes mellitus terminal supervisor insulin use: without terminal supervisor use Diabetes mellitus complication status: with neurologic complications Diabetes mellitus complication detail: with unspecified neuropathy Qualified Code(s): E11.40 - Type 2 diabetes mellitus with diabetic neuropathy, unspecified (5) Diabetic foot ulcer Onset Date: 10/22/17 Current Visit: No Status: Chronic Plan: Patient of Dr. Peterson - Will consult Dr. Peterson for further wound management - Cultures pending Qualifiers: Diabetic foot ulcer location: toe Diabetes mellitus type: type 2 Laterality: left Non-pressure ulcer stage: with muscle involvement without evidence of necrosis Qualified Code(s): E11.621 - Type 2 diabetes mellitus with foot ulcer; L97.525 - Non-pressure chronic ulcer of other part of left foot with muscle involvement without evidence of necrosis (6) PVD (peripheral vascular disease) Onset Date: 06/19/18 Current Visit: No Status: Chronic Plan: - arterial doppler of bilateral lower extremities ordered, pending (7) Diastolic CHF, chronic Current Visit: No Status: Chronic (8) HTN (hypertension) Onset Date: 08/07/16 Current Visit: No Status: Chronic Qualifiers: Hypertension type: essential hypertension Qualified Code(s): I10 - Essential (primary) hypertension (9) Hyperlipidemia Onset Date: 06/19/18 Current Visit: No Status: Chronic Plan: Stable, Restart home medications Qualifiers: Hyperlipidemia type: mixed hyperlipidemia Qualified Code(s): E78.2 - Mixed hyperlipidemia (10) Depression with anxiety Onset Date: 06/19/18 Current Visit: No Status: Chronic - Plan DVT Prophylaxis: Lovenox GI prophylaxis: None Diet: Diabetic Plan: Admit to floor, start IV antibiotics. Pending symptomatic improvement. - Advance Directives Does patient have a Living Will: Yes Does patient have a Durable POA for Healthcare: Yes
[2019-04-17 17:17] LABS: Urine Blood NEGATIVE (NEG); Urine Glucose 1+ (NEG); Urine Protein 1+ (NEG); Urine Specific Gravity 1.025 (1.005-1.030); Urine pH 5.5 (5.0-7.0)
[2019-04-17] MEDS: INSULIN -REGULAR HUMAN 50 UNIT/0.5 ML ML SQ SCH ×2 (17:43→21:00)
[2019-04-17] MEDS ORDERED: ENOXAPARIN 40 MG/0.4 ML SQ SCH (18:00)
[2019-04-17 18:36] LABS: Urine Appearance CLEAR; Urine Bilirubin NEGATIVE (NEG); Urine Blood NEGATIVE (NEG); Urine Color YELLOW; Urine Glucose 3+ (NEG); Urine Protein NEGATIVE (NEG); Urine Specific Gravity 1.025 (1.005-1.030); Urine Urobilinogen 0.2 mg/dL (0.2-1.0); Urine pH 5.5 (5.0-7.0)
[2019-04-17 18:48] LABS: Urine Microscopic Reflex ORDER UMIC
[2019-04-17] MEDS: ACETAMINOPHEN 500 MG TAB PO PRN (18:57)
[2019-04-17 19:04] LABS: Urine Bacteria <20 /HPF (<20); Urine Culture Reflex Order NOT NEEDED; Urine RBC <5 /HPF (NONE SEEN)
[2019-04-17] MEDS: CEFTRIAXONE/SWI 1gm 1 GM/10 ML SYR IVP SCH (20:37)
[2019-04-17] MEDS ORDERED: GLUCAGON 1 MG/VIAL IM PRN (21:23)
[2019-04-17] MEDS ORDERED: D50W 25 GM/50 ML SYRINGE IV PRN (21:23)
--- NOTE | 2019-04-17 21:52 | RAD REPORT ---
EXAM DESCRIPTION: US - Lower Extremity Arterial Bilat - 04/17/2019 9:16 pm CLINICAL HISTORY: Leg swelling and pain COMPARISON: None FINDINGS: Right ankle-brachial index 0.8. Left ankle-brachial index 0.9 Right toe index 0.5. Left toe index 0.4 Waveform of the common femoral, superficial femoral, popliteal, dorsalis pedis and posterior tibial arteries bilaterally are mostly biphasic. A significant stenosis/occlusion not seen IMPRESSION: Mild disease involving the arteries of the lower extremity bilaterally
[2019-04-17] MEDS: DIVALPROEX ER 250 MG TAB PO SCH (22:08)
[2019-04-17] MEDS: LISINOPRIL 10 MG TAB PO SCH (22:08)
[2019-04-17] MEDS: MONTELUKAST 10 MG TAB PO SCH (22:09)
[2019-04-17] MEDS: PREGABALIN 150 MG CAP PO SCH (22:18)
[2019-04-18] MEDS: METHYLPREDNISOLONE 40 MG INJ IV SCH ×3 (00:12→17:28)
[2019-04-18 05:05] LABS: Absolute Lymphocytes (CBC) 0.7 K/uL (0.7-4.9); Basophils % 0.1 % (0-1.3); Hematocrit 31.1 % (36.0-45.0); Lymphocytes % 8.1 % (15.3-44.8); MPV 9.2 fL (7.6-11.3); RBC Red Blood Cell Count 3.94 M/uL (3.86-4.86)
[2019-04-18 05:22] LABS: Albumin 2.7 g/dL (3.4-5.0); Bilirubin Total 0.2 mg/dL (0.2-1.0); Potassium 4.5 mmol/L (3.5-5.1); Protein, Total 7.7 g/dL (6.4-8.2)
[2019-04-18] MEDS: HOME MED 1 EA UNK (Umeclidinium Brm/Vilanterol Tr [Anoro Ellipta 62.5-25 Mcg Inh] 1 PUFF) IN SCH (09:00)
[2019-04-18] MEDS: INSULIN -REGULAR HUMAN 50 UNIT/0.5 ML ML SQ SCH ×4 (09:02→21:00)
[2019-04-18] MEDS: CEFTRIAXONE/SWI 1gm 1 GM/10 ML SYR IVP SCH ×2 (09:03→21:38)
[2019-04-18] MEDS: PREGABALIN 150 MG CAP PO SCH ×2 (09:04→21:35)
[2019-04-18] MEDS: CLOPIDOGREL 75 MG TABLET PO SCH (09:04)
[2019-04-18] MEDS: FUROSEMIDE 20 MG TABLET PO SCH (09:04)
[2019-04-18] MEDS: ASPIRIN 81 MG CHEWABLE TABLET PO SCH (09:05)
[2019-04-18] MEDS: DIVALPROEX ER 250 MG TAB PO SCH ×2 (09:05→21:36)
[2019-04-18] MEDS: SERTRALINE HCL 100 MG TAB PO SCH (09:05)
[2019-04-18] MEDS: LISINOPRIL 10 MG TAB PO SCH (09:05)
[2019-04-18] MEDS: DOCOSAHEXANOIC AC/EPA 1000 MG PO SCH (09:08)
[2019-04-18] MEDS: AZITHROMYCIN IV 500 MG in NA CHLORIDE 0.9% 250 ML IVPB SCH (09:08)
[2019-04-18 09:10] LABS: Blood Morphology Comment NOT SEEN (NOT SEEN); Platelet Estimate ADEQ
[2019-04-18] MEDS: ACETAMINOPHEN 500 MG TAB PO PRN (10:10)
[2019-04-18] MEDS: ONDANSETRON 4 MG/2 ML VIAL IV PRN (10:11)
--- NOTE | 2019-04-18 12:38 | EKG ---
Test Date: 2019-04-17 Test Time: 10:37:58 Roving Marker: ROGELIO MEASUREMENT RESULTS: Intervals: Rate: 97 [place]: 120 QRSD: 128 QT: 382 QTc: 485 [place]: P: 59 [place]: 120 QRS: 72 T: 34 INTERPRETIVE STATEMENTS: Normal sinus rhythm Right bundle branch block Abnormal ECG Compared to ECG 12/19/2018 15:25:44 No significant changes Electronically Signed On 04-18-19 12:33:14 CDT by Víctor Kurtz
[2019-04-18] MEDS: ALBUTEROL 2.5 MG/3 ML NEB SOL NEB SCH ×2 (13:37→19:25)
[2019-04-18] MEDS: IPRATROPIUM BROM 0.5MG/2.5ML NEB SCH ×2 (13:37→19:25)
--- NOTE | 2019-04-18 13:48 | P.PN ---
Subjective Date of Service: 04/18/19 Chief Complaint: Shortness of breath Subjective: Improving Patient seen and examined at bedside. Chart reviewed and case discussed with nursing staff. Patient reports improving respiratory status. No acute events noted overnight. Review of Systems 10-point ROS is otherwise unremarkable Physical Examination - Vital Signs Temperature: 97 F Blood Pressure: 107/51 Pulse: 67 Respirations: 18 Pulse Ox (%): 88 - Physical Exam General: Alert, In no apparent distress HEENT: Atraumatic, PERRLA, EOMI Neck: Supple, JVD not distended Respiratory: Diminished, Dull, Expiratory wheezes Cardiovascular: Regular rate/rhythm, Normal S1 S2 Gastrointestinal: Normal bowel sounds, No tenderness Musculoskeletal: No tenderness Integumentary: No rashes Neurological: Normal speech, Normal tone, Normal affect Lymphatics: No axilla or inguinal lymphadenopathy Assessment And Plan - Current Problems (Diagnosis) (1) Acute respiratory failure Current Visit: Yes Status: Acute Plan: Likely secondary to PNA, COPD exacerbation; improving - Will provide supportive care with oxygen as needed. Currently on venti-mask, Wean as tolerated, to home 3L oxygen - Bi-Pap if needed. - Treat underlying disease. Qualifiers: Respiratory failure complication: hypoxia Qualified Code(s): J96.01 - Acute respiratory failure with hypoxia (2) Pneumonia Onset Date: 10/13/16 Current Visit: Yes Status: Acute Plan: CURB 65 score of 1; PSI score of 103, Class IV, moderate severity with a 8.2-9.3 % mortality risk. - Will continue IV antibiotics with Rocephin and azithromycin - Provide supportive care as above. - Will get CT scan if no improvement noted. Qualifiers: Pneumonia type: due to unspecified organism Laterality: left Lung location: lower lobe of lung Qualified Code(s): J18.1 - Lobar pneumonia, unspecified organism (3) COPD exacerbation Onset Date: 10/18/15 Current Visit: No Status: Acute Plan: Likely secondary to underlying PNA - Breathing treatments as needed - Oxygen as needed. Will wean to home oxygen level as tolerated. - Patient on home oxygen of 3L - continue IV steroids (4) Diabetes mellitus Current Visit: No Status: Chronic Plan: Accu-checks and sliding scale insulin. - Will continue home medications as tolerated. Will adjust medications as needed. Qualifiers: Diabetes mellitus type: type 2 Diabetes mellitus terminal computer operator insulin use: without terminal computer operator use Diabetes mellitus complication status: with neurologic complications Diabetes mellitus complication detail: with unspecified neuropathy Qualified Code(s): E11.40 - Type 2 diabetes mellitus with diabetic neuropathy, unspecified (5) Diabetic foot ulcer Onset Date: 10/22/17 Current Visit: No Status: Chronic Plan: Patient of Dr. Peterson - Will consult Dr. Peterosn for further wound management - Cultures pending Qualifiers: Diabetic foot ulcer location: toe Diabetes mellitus type: type 2 Laterality: left Non-pressure ulcer stage: with muscle involvement without evidence of necrosis Qualified Code(s): E11.621 - Type 2 diabetes mellitus with foot ulcer; L97.525 - Non-pressure chronic ulcer of other part of left foot with muscle involvement without evidence of necrosis (6) PVD (peripheral vascular disease) Onset Date: 06/19/18 Current Visit: No Status: Chronic Plan: - arterial doppler of bilateral lower extremities with mild disease involving B/ L LE arteries (7) Diastolic CHF, chronic Current Visit: No Status: Chronic (8) HTN (hypertension) Onset Date: 08/07/16 Current Visit: No Status: Chronic Qualifiers: Hypertension type: essential hypertension Qualified Code(s): I10 - Essential (primary) hypertension (9) Hyperlipidemia Onset Date: 06/19/18 Current Visit: No Status: Chronic Plan: Stable, Restart home medications Qualifiers: Hyperlipidemia type: mixed hyperlipidemia Qualified Code(s): E78.2 - Mixed hyperlipidemia (10) Depression with anxiety Onset Date: 06/19/18 Current Visit: No Status: Chronic - Plan DVT Prophylaxis: Lovenox GI prophylaxis: None Diet: Diabetic Plan: Continue IV antibiotics. Pending symptomatic improvement. Anticipate discharge in the next 24-48 hrs once clinically improved Discharge Plan: Home Plan to discharge in: 48 Hours
[2019-04-18] MEDS: TRAMADOL HCL 50 MG TAB PO PRN ×2 (15:38→22:58)
[2019-04-18] MEDS ORDERED: INSULIN 70/30 100 UNITS/ML SQ ONE ×2 (20:42→21:24)
[2019-04-18] MEDS: MONTELUKAST 10 MG TAB PO SCH (21:35)
[2019-04-18] MEDS: ATORVASTATIN 10 MG TAB PO SCH (21:36)
[2019-04-19] MEDS: ALBUTEROL 2.5 MG/3 ML NEB SOL NEB SCH ×4 (01:20→20:20)
[2019-04-19] MEDS: IPRATROPIUM BROM 0.5MG/2.5ML NEB SCH ×4 (01:20→20:20)
[2019-04-19] MEDS: METHYLPREDNISOLONE 40 MG INJ IV SCH ×2 (01:54→08:51)
[2019-04-19 04:53] LABS: Absolute Lymphocytes (CBC) 0.7 K/uL (0.7-4.9); Basophils % 0.1 % (0-1.3); Lymphocytes % 6.5 % (15.3-44.8); MPV 9.5 fL (7.6-11.3); RBC Red Blood Cell Count 4.22 M/uL (3.86-4.86)
[2019-04-19 05:18] LABS: Albumin 3.1 g/dL (3.4-5.0); Bilirubin Total 0.1 mg/dL (0.2-1.0); Magnesium 2.1 mg/dL (1.8-2.4); Phosphorus 3.1 mg/dL (2.5-4.9); Potassium 4.2 mmol/L (3.5-5.1); Protein, Total 8.2 g/dL (6.4-8.2)
[2019-04-19] MEDS: CEFTRIAXONE/SWI 1gm 1 GM/10 ML SYR IVP SCH (08:50)
[2019-04-19] MEDS: INSULIN -REGULAR HUMAN 50 UNIT/0.5 ML ML SQ SCH ×4 (08:51→20:28)
[2019-04-19] MEDS: CLOPIDOGREL 75 MG TABLET PO SCH (08:51)
[2019-04-19] MEDS: DIVALPROEX ER 250 MG TAB PO SCH ×2 (08:51→20:26)
[2019-04-19] MEDS: DOCOSAHEXANOIC AC/EPA 1000 MG PO SCH (08:51)
[2019-04-19] MEDS: PREGABALIN 150 MG CAP PO SCH ×2 (08:52→20:27)
[2019-04-19] MEDS: LISINOPRIL 10 MG TAB PO SCH (08:52)
[2019-04-19] MEDS: ASPIRIN 81 MG CHEWABLE TABLET PO SCH (08:52)
[2019-04-19] MEDS: TRAMADOL HCL 50 MG TAB PO PRN ×2 (08:53→20:27)
[2019-04-19] MEDS: SERTRALINE HCL 100 MG TAB PO SCH (08:53)
[2019-04-19] MEDS: FUROSEMIDE 20 MG TABLET PO SCH (08:53)
[2019-04-19] MEDS: HOME MED 1 EA UNK (Umeclidinium Brm/Vilanterol Tr [Anoro Ellipta 62.5-25 Mcg Inh] 1 PUFF) IN SCH (08:54)
[2019-04-19] MEDS: AZITHROMYCIN IV 500 MG in NA CHLORIDE 0.9% 250 ML IVPB SCH (08:58)
--- NOTE | 2019-04-19 11:52 | RAD REPORT ---
EXAM DESCRIPTION: CT - Thorax W/ Con - 04/19/2019 11:28 am CLINICAL HISTORY: cough COMPARISON: December 2018 TECHNIQUE: Computed axial tomography of the chest was obtained. 100 cc Isovue 300 was administered i ntravenously. All CT scans are performed using dose optimization technique as appropriate and may include automated exposure control or mA/KV adjustment according to patient size. FINDINGS: A mild left lower lobe opacities. Mild to moderate right lung opacities. Soft tissue surro unds right lower lobe bronchus. Mild right lower lobe atelectasis Mediastinal and bilateral hilar lymphadenopathy. Lymph nodes are present within the anterior and midd le mediastinum. . Anterior mediastinal lymph node measures up to 11 millimeters. Middle mediastinal l ymph nodes measure up to 22 millimeters. Hilar lymph nodes measure up to 18 millimeters. A pleural effusion is not present. A pericardial effusion is not seen. IMPRESSION: Mild to moderate right and mild left pulmonary opacities probably indicating pneumonia. Soft tissue surrounds right lower lobe bronchus with mild right lower lobe atelectasis. This may radha mariana neoplasm or pneumonia. This should be followed until it has cleared. If it does not bronchoscopy would be recommended [id number] mediastinal and hilar lymphadenopathy may indicate neoplasm artery reactive in natur e
--- NOTE | 2019-04-19 13:59 | P.PN ---
Subjective Date of Service: 04/19/19 Chief Complaint: Shortness of breath Patient seen and examined at bedside. Chart reviewed and case discussed with nursing staff. Patient reports improving respiratory status. Complains of coughing up some blood, started last night. Back to baseline oxygen requirement. Review of Systems 10-point ROS is otherwise unremarkable Physical Examination - Vital Signs Temperature: 97.8 F Blood Pressure: 132/60 Pulse: 72 Respirations: 18 Pulse Ox (%): 94 - Physical Exam General: Alert, In no apparent distress HEENT: Atraumatic, PERRLA, EOMI Neck: Supple, JVD not distended Respiratory: Diminished, Crackles/rales Cardiovascular: Regular rate/rhythm, Normal S1 S2 Gastrointestinal: Normal bowel sounds, No tenderness Musculoskeletal: No tenderness Integumentary: No rashes Neurological: Normal speech, Normal tone, Normal affect Lymphatics: No axilla or inguinal lymphadenopathy Assessment And Plan - Current Problems (Diagnosis) (1) Acute respiratory failure Current Visit: Yes Status: Acute Plan: Likely secondary to PNA, COPD exacerbation; improving - Will provide supportive care with oxygen as needed. Required venti-mask, now weaned to her home 3L oxygen - Treat underlying disease. Qualifiers: Respiratory failure complication: hypoxia Qualified Code(s): J96.01 - Acute respiratory failure with hypoxia (2) Pneumonia Onset Date: 10/13/16 Current Visit: Yes Status: Acute Plan: CURB 65 score of 1; PSI score of 103, Class IV, moderate severity with a 8.2-9.3 % mortality risk. - Sputum cultures positive for Enterobacter Cloacae, sensitive to Levaquin. WBC count improving, patient clinically improving, oxygen requirement now back to baseline. I will go ahead and switch her to PO Levaquin from IV Rocephin and azithromycin. - Provide supportive care as above. - CT scan of the chest with Mild to moderate right and mild left pulmonary opacities probably indicating pneumonia. Soft tissue surrounding right lower lobe bronchus with mild right lower lobe atelectasis. This may indicate neoplasm or pneumonia. This should be followed until it has cleared. If it does not bronchoscopy would be recommended. [id number] mediastinal and hilar lymphadenopathy may indicate neoplasm artery reactive in nature Qualifiers: Pneumonia type: due to unspecified organism Laterality: left Lung location: lower lobe of lung Qualified Code(s): J18.1 - Lobar pneumonia, unspecified organism (3) COPD exacerbation Onset Date: 10/18/15 Current Visit: No Status: Acute Plan: Likely secondary to underlying PNA - Breathing treatments as needed - Oxygen as needed. Now weaned to home oxygen of 3L - Switch to PO steroid from IV steroids (4) Diabetes mellitus Current Visit: No Status: Chronic Plan: Accu-checks and sliding scale insulin. - Will continue home medications as tolerated. Will adjust medications as needed. Qualifiers: Diabetes mellitus type: type 2 Diabetes mellitus residential insulin use: without residential use Diabetes mellitus complication status: with neurologic complications Diabetes mellitus complication detail: with unspecified neuropathy Qualified Code(s): E11.40 - Type 2 diabetes mellitus with diabetic neuropathy, unspecified (5) Diabetic foot ulcer Onset Date: 10/22/17 Current Visit: No Status: Chronic Plan: Patient of Dr. Peterson - Will consult Dr. Peterson for further wound management, awaiting recommendations. Continue wound care - Cultures positive for Morganella morganii, sensitive to levaquin. We will continue antibiotics. Qualifiers: Diabetic foot ulcer location: toe Diabetes mellitus type: type 2 Laterality: left Non-pressure ulcer stage: with muscle involvement without evidence of necrosis Qualified Code(s): E11.621 - Type 2 diabetes mellitus with foot ulcer; L97.525 - Non-pressure chronic ulcer of other part of left foot with muscle involvement without evidence of necrosis (6) PVD (peripheral vascular disease) Onset Date: 06/19/18 Current Visit: No Status: Chronic Plan: - arterial doppler of bilateral lower extremities with mild disease involving B/ L LE arteries (7) Diastolic CHF, chronic Current Visit: No Status: Chronic (8) HTN (hypertension) Onset Date: 08/07/16 Current Visit: No Status: Chronic Qualifiers: Hypertension type: essential hypertension Qualified Code(s): I10 - Essential (primary) hypertension (9) Hyperlipidemia Onset Date: 06/19/18 Current Visit: No Status: Chronic Plan: Stable, Restart home medications Qualifiers: Hyperlipidemia type: mixed hyperlipidemia Qualified Code(s): E78.2 - Mixed hyperlipidemia (10) Depression with anxiety Onset Date: 06/19/18 Current Visit: No Status: Chronic (11) Cough with hemoptysis Current Visit: Yes Status: Acute Plan: Likely secondary to forceful coughing spells (more likely) vs PNA vs neoplasm - CT scan of the chest done, Mild to moderate right and mild left pulmonary opacities probably indicating pneumonia. - Continue to monitor. (12) Hilar lymphadenopathy Current Visit: Yes Status: Acute Plan: [id number] mediastinal and hilar lymphadenopathy may indicate neoplasm artery vs reactive in nature. - This will require outpatient follow up with pulmonology for repeat imaging and possible further work-up. - Pulmonology consulted here for further recommendations. (13) Abnormal CT of the chest Current Visit: Yes Status: Acute Plan: Soft tissue surrounding right lower lobe bronchus with mild right lower lobe atelectasis. This may indicate neoplasm or pneumonia. This should be followed until it has cleared. If it does not bronchoscopy would be recommended. - Pulmonology consulted. Awaiting recommendations. - Plan DVT Prophylaxis: Lovenox GI prophylaxis: None Diet: Diabetic Plan: Pending symptomatic improvement and pulmonology consult. Anticipate discharge in the next 24 hrs once clinically improved Discharge Plan: Home Plan to discharge in: 24 Hours
[2019-04-19 18:19] LABS: Hematocrit 31.7 % (36.0-45.0)
[2019-04-19] MEDS: ACETAMINOPHEN 500 MG TAB PO PRN (19:03)
[2019-04-19] MEDS: ONDANSETRON 4 MG/2 ML VIAL IV PRN (19:43)
[2019-04-19] MEDS: MONTELUKAST 10 MG TAB PO SCH (20:26)
[2019-04-19] MEDS: ATORVASTATIN 10 MG TAB PO SCH (20:26)
[2019-04-19] MEDS: ALPRAZOLAM 0.5 MG TABLET PO PRN (20:26)
[2019-04-19] MEDS: predniSONE 20 MG TAB PO SCH (20:27)
[2019-04-20] MEDS: MUPIROCIN 2% OINT 22GM TUBE TOP SCH ×3 (01:19→20:12)
[2019-04-20] MEDS: IPRATROPIUM BROM 0.5MG/2.5ML NEB SCH ×4 (01:40→19:50)
[2019-04-20] MEDS: ALBUTEROL 2.5 MG/3 ML NEB SOL NEB SCH ×4 (01:40→19:50)
[2019-04-20 05:01] LABS: Basophils % 0.5 % (0-1.3); Lymphocytes % 10.7 % (15.3-44.8); MPV 9.5 fL (7.6-11.3); RBC Red Blood Cell Count 4.27 M/uL (3.86-4.86)
[2019-04-20 05:14] LABS: Albumin 3.2 g/dL (3.4-5.0); Bilirubin Total 0.2 mg/dL (0.2-1.0); Potassium 4.4 mmol/L (3.5-5.1); Protein, Total 8.5 g/dL (6.4-8.2)
[2019-04-20] MEDS: INSULIN -REGULAR HUMAN 50 UNIT/0.5 ML ML SQ SCH ×4 (08:46→20:14)
[2019-04-20] MEDS: FUROSEMIDE 20 MG TABLET PO SCH (08:47)
[2019-04-20] MEDS: PREGABALIN 150 MG CAP PO SCH ×2 (08:47→20:13)
[2019-04-20] MEDS: DOCOSAHEXANOIC AC/EPA 1000 MG PO SCH (08:47)
[2019-04-20] MEDS: predniSONE 20 MG TAB PO SCH ×2 (08:48→20:13)
[2019-04-20] MEDS: SERTRALINE HCL 100 MG TAB PO SCH (08:48)
[2019-04-20] MEDS: DIVALPROEX ER 250 MG TAB PO SCH ×2 (08:48→20:13)
[2019-04-20] MEDS: levoFLOXacin 500 MG TAB PO SCH (08:48)
[2019-04-20] MEDS: CLOPIDOGREL 75 MG TABLET PO SCH (08:49)
[2019-04-20] MEDS: ASPIRIN 81 MG CHEWABLE TABLET PO SCH (08:49)
[2019-04-20] MEDS: SMZ./TMP. 800/160 MG TABLET PO SCH ×2 (08:49→20:13)
[2019-04-20] MEDS: HOME MED 1 EA UNK (Umeclidinium Brm/Vilanterol Tr [Anoro Ellipta 62.5-25 Mcg Inh] 1 PUFF) IN SCH (08:50)
[2019-04-20] MEDS: MINOCYCLINE HCL 50 MG CAP PO SCH ×2 (08:53→20:12)
--- NOTE | 2019-04-20 12:59 | P.PN ---
Subjective Date of Service: 04/20/19 Chief Complaint: Shortness of breath Subjective: Improving Patient seen and examined at bedside. Chart reviewed and case discussed with nursing staff. Patient reports improving respiratory status. Cough has improved. Back to baseline oxygen requirement. Review of Systems 10-point ROS is otherwise unremarkable Physical Examination - Vital Signs Temperature: 97.3 F Blood Pressure: 150/68 Pulse: 82 Respirations: 18 Pulse Ox (%): 91 - Physical Exam General: Alert, In no apparent distress HEENT: Atraumatic, PERRLA, EOMI Neck: Supple, JVD not distended Respiratory: Clear to auscultation bilaterally, Normal air movement Cardiovascular: Regular rate/rhythm, Normal S1 S2 Gastrointestinal: Normal bowel sounds, No tenderness Musculoskeletal: No tenderness Integumentary: No rashes Neurological: Normal speech, Normal tone, Normal affect Lymphatics: No axilla or inguinal lymphadenopathy Assessment And Plan - Current Problems (Diagnosis) (1) Acute respiratory failure Current Visit: Yes Status: Acute Plan: Likely secondary to PNA, COPD exacerbation; resolved resolved - Will provide supportive care with oxygen as needed. Required venti-mask, now weaned to her home 3L oxygen - Treat underlying disease. Qualifiers: Respiratory failure complication: hypoxia Qualified Code(s): J96.01 - Acute respiratory failure with hypoxia (2) Pneumonia Onset Date: 10/13/16 Current Visit: Yes Status: Acute Plan: CURB 65 score of 1; PSI score of 103, Class IV, moderate severity with a 8.2-9.3 % mortality risk. - Sputum cultures positive for Enterobacter Cloacae, sensitive to Levaquin. WBC count improving, patient clinically improving, oxygen requirement now back to baseline. I will go ahead and switch her to PO Levaquin from IV Rocephin and azithromycin. - Provide supportive care as above. - CT scan of the chest with Mild to moderate right and mild left pulmonary opacities probably indicating pneumonia. Soft tissue surrounding right lower lobe bronchus with mild right lower lobe atelectasis. This may indicate neoplasm or pneumonia. This should be followed until it has cleared. If it does not bronchoscopy would be recommended. Uyge-kp-fvknyjfj mediastinal and hilar lymphadenopathy may indicate neoplasm artery reactive in nature Qualifiers: Pneumonia type: due to unspecified organism Laterality: left Lung location: lower lobe of lung Qualified Code(s): J18.1 - Lobar pneumonia, unspecified organism (3) COPD exacerbation Onset Date: 10/18/15 Current Visit: No Status: Acute Plan: Likely secondary to underlying PNA - Breathing treatments as needed - Oxygen as needed. Now weaned to home oxygen of 3L - Switch to PO steroid from IV steroids (4) Diabetes mellitus Current Visit: No Status: Chronic Plan: Accu-checks and sliding scale insulin. - Will continue home medications as tolerated. Will adjust medications as needed. Qualifiers: Diabetes mellitus type: type 2 Diabetes mellitus ferry terminal supervisor insulin use: without ferry terminal supervisor use Diabetes mellitus complication status: with neurologic complications Diabetes mellitus complication detail: with unspecified neuropathy Qualified Code(s): E11.40 - Type 2 diabetes mellitus with diabetic neuropathy, unspecified (5) Diabetic foot ulcer Onset Date: 10/22/17 Current Visit: No Status: Chronic Plan: Patient of Dr. Peterson - Will consult Dr. Peterson for further wound management, awaiting recommendations. Continue wound care - Cultures positive for Morganella morganii, sensitive to levaquin and MRSA, sensitive to Bactrim. We will continue antibiotics. Qualifiers: Diabetic foot ulcer location: toe Diabetes mellitus type: type 2 Laterality: left Non-pressure ulcer stage: with muscle involvement without evidence of necrosis Qualified Code(s): E11.621 - Type 2 diabetes mellitus with foot ulcer; L97.525 - Non-pressure chronic ulcer of other part of left foot with muscle involvement without evidence of necrosis (6) PVD (peripheral vascular disease) Onset Date: 06/19/18 Current Visit: No Status: Chronic Plan: - arterial doppler of bilateral lower extremities with mild disease involving B/ L LE arteries (7) Diastolic CHF, chronic Current Visit: No Status: Chronic (8) HTN (hypertension) Onset Date: 08/07/16 Current Visit: No Status: Chronic Qualifiers: Hypertension type: essential hypertension Qualified Code(s): I10 - Essential (primary) hypertension (9) Hyperlipidemia Onset Date: 06/19/18 Current Visit: No Status: Chronic Plan: Stable, Restart home medications Qualifiers: Hyperlipidemia type: mixed hyperlipidemia Qualified Code(s): E78.2 - Mixed hyperlipidemia (10) Depression with anxiety Onset Date: 06/19/18 Current Visit: No Status: Chronic (11) Cough with hemoptysis Current Visit: Yes Status: Acute Plan: Likely secondary to forceful coughing spells (more likely) vs PNA vs neoplasm - CT scan of the chest done, Mild to moderate right and mild left pulmonary opacities probably indicating pneumonia. - Continue to monitor. (12) Hilar lymphadenopathy Current Visit: Yes Status: Acute Plan: Gobx-qm-zgnepzeu mediastinal and hilar lymphadenopathy may indicate neoplasm artery vs reactive in nature. - This will require outpatient follow up with pulmonology for repeat imaging and possible further work-up. - Pulmonology consulted here for further recommendations. (13) Abnormal CT of the chest Current Visit: Yes Status: Acute Plan: Soft tissue surrounding right lower lobe bronchus with mild right lower lobe atelectasis. This may indicate neoplasm or pneumonia. This should be followed until it has cleared. If it does not bronchoscopy would be recommended. - Pulmonology consulted. Awaiting recommendations. - Plan DVT Prophylaxis: Lovenox GI prophylaxis: None Diet: Diabetic Plan: Pending symptomatic improvement and pulmonology recommendations. Anticipate discharge in the next 24 hrs once clinically improved
[2019-04-20] MEDS: TRAMADOL HCL 50 MG TAB PO PRN (15:04)
[2019-04-20] MEDS: ONDANSETRON 4 MG/2 ML VIAL IV PRN (16:38)
[2019-04-20] MEDS: MONTELUKAST 10 MG TAB PO SCH (20:13)
[2019-04-20] MEDS: ATORVASTATIN 10 MG TAB PO SCH (20:13)
[2019-04-20] MEDS: ALPRAZOLAM 0.5 MG TABLET PO PRN (20:37)
[2019-04-21] MEDS: ALBUTEROL 2.5 MG/3 ML NEB SOL NEB SCH ×4 (01:25→20:00)
[2019-04-21] MEDS: IPRATROPIUM BROM 0.5MG/2.5ML NEB SCH ×4 (01:25→20:00)
[2019-04-21] MEDS: INSULIN -REGULAR HUMAN 50 UNIT/0.5 ML ML SQ SCH ×4 (08:39→21:36)
[2019-04-21] MEDS: DIVALPROEX ER 250 MG TAB PO SCH ×2 (08:40→21:32)
[2019-04-21] MEDS: levoFLOXacin 500 MG TAB PO SCH (08:40)
[2019-04-21] MEDS: SERTRALINE HCL 100 MG TAB PO SCH (08:40)
[2019-04-21] MEDS: predniSONE 20 MG TAB PO SCH ×2 (08:40→21:32)
[2019-04-21] MEDS: MINOCYCLINE HCL 50 MG CAP PO SCH ×2 (08:40→21:31)
[2019-04-21] MEDS: DOCOSAHEXANOIC AC/EPA 1000 MG PO SCH (08:40)
[2019-04-21] MEDS: CLOPIDOGREL 75 MG TABLET PO SCH (08:40)
[2019-04-21] MEDS: FUROSEMIDE 20 MG TABLET PO SCH (08:40)
[2019-04-21] MEDS: PREGABALIN 150 MG CAP PO SCH ×2 (08:41→21:32)
[2019-04-21] MEDS: ASPIRIN 81 MG CHEWABLE TABLET PO SCH (08:41)
[2019-04-21] MEDS: SMZ./TMP. 800/160 MG TABLET PO SCH ×2 (08:41→21:32)
[2019-04-21] MEDS: MUPIROCIN 2% OINT 22GM TUBE TOP SCH ×2 (08:42→21:38)
[2019-04-21] MEDS: HOME MED 1 EA UNK (Umeclidinium Brm/Vilanterol Tr [Anoro Ellipta 62.5-25 Mcg Inh] 1 PUFF) IN SCH (09:00)
--- NOTE | 2019-04-21 09:23 | P.CNS ---
Date of Consult: 04/21/19 Reason for Consult: wound left foot Chief Complaint: Shortness of breath Allergies codeine [Codeine] Allergy (Intermediate, Verified 01/08/19 14:45) Itching/Hives/Rash flu vaccine Allergy (Uncoded 02/03/17 19:52) Anaphylaxis Home Medications: Aspirin 81 mg PO DAILY 01/30/12 Divalproex ER [Depakote *ER] 250 mg PO BID 01/19/15 Clopidogrel Bisulfate [Plavix] 1 tab PO DAILY 09/21/16 Lisinopril [Zestril] 10 mg PO DAILY 09/21/16 Pregabalin [Lyrica] 300 cap PO BID 09/21/16 Sertraline [Zoloft*] 1 tab PO DAILY 09/21/16 Insulin 70/30 NPH/Reg Human [Novolin 70/30*] 0 unit SQ SEECOM 02/03/17 Montelukast [Singulair*] 1 tab PO BEDTIME 10/21/17 Pravastatin Sodium 40 mg PO BEDTIME 10/21/17 Albuterol Sulfate [Proventil Hfa] 2 inhaler IH QID PRN 11/22/17 Loperamide [Imodium*] 2 mg PO TID PRN 06/19/18 Albuterol Neb [Proventil 0.083% Neb Soln] 2.5 mg NEB QID 04/17/19 Arginine/Ascorbate Sod/Adrianne AC [Arginaid Powder] 1 packet PO DAILY 04/17/19 Ascorbic Acid [Vitamin C] 500 mg PO BID 04/17/19 Furosemide [Lasix] 20 mg PO DAILY 04/17/19 [place]-3/Dha/Epa/Fish Oil [Fish Oil 1,000 mg Softgel] 1 cap PO DAILY 04/17/19 Umeclidinium Brm/Vilanterol Tr [Anoro Ellipta 62.5-25 Mcg INH] 1 puff IN DAILY 04/17/19 - Past Medical/Surgical History Diabetic: Yes -: Neuropathy -: Diabetes mellitus type 1 insulin-dependent -: A-Fib -: COPD, severe, 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 She also has a common-law partner. She does not work. Patient is DNR. - Family History Father Medical History: Heart disease, Lung disease Mother Medical History: Lung disease, Diabetes - Social History Smoking Status: Current every day smoker Alcohol use: No CD- Drugs: No Caffeine use: Yes Place of Residence: Home Physical Examination Temp Pulse Resp BP Pulse Ox 97.8 F 76 18 140/64 93 04/21/19 04:00 04/21/19 08:40 04/21/19 04:00 04/21/19 08:40 04/21/19 04:00 General: Alert, In no apparent distress, Oriented x3 Cardiovascular: No edema, Abnormal pulses Capillary refill: >2 Seconds Musculoskeletal: No clubbing, No swelling, No contractures, No erythema, No tenderness, No warmth Integumentary: Diabetic ulcer (wound sub left 1st mpj has large hyperkeratotic border with fibrinous base. No probing or undermining, no purulence, no periwound erythema noted. ) Neurological: Abnormal sensation - Problems (1) Diabetic foot ulcer Onset Date: 10/22/17 Current Visit: No Status: Chronic Plan: debridement performed at bedside. continue bactroban bid to wound with offloading of the wound Qualifiers: Diabetic foot ulcer location: toe Diabetes mellitus type: type 2 Laterality: left Non-pressure ulcer stage: with muscle involvement without evidence of necrosis Qualified Code(s): E11.621 - Type 2 diabetes mellitus with foot ulcer; L97.525 - Non-pressure chronic ulcer of other part of left foot with muscle involvement without evidence of necrosis
--- NOTE | 2019-04-21 09:27 | P.PN ---
Subjective Date of Service: 04/21/19 Chief Complaint: Shortness of breath Patient seen and examined at bedside. Chart reviewed and case discussed with nursing staff. Patient reports improving respiratory status. Continues to cough up blood. Back to baseline oxygen requirement. Little emotional this morning, she states that she had spoken to pulmonology and was told that she may have cancer. Review of Systems 10-point ROS is otherwise unremarkable Physical Examination - Vital Signs Temperature: 97.8 F Blood Pressure: 140/64 Pulse: 76 Respirations: 18 Pulse Ox (%): 93 - Physical Exam General: Alert, In no apparent distress, Oriented x3 HEENT: Atraumatic, PERRLA, EOMI Neck: Supple, JVD not distended Respiratory: Diminished, Crackles/rales Cardiovascular: Regular rate/rhythm, Normal S1 S2 Gastrointestinal: Normal bowel sounds, No tenderness Integumentary: No rashes, Pressure ulcer Neurological: Normal speech, Normal tone, Normal affect Lymphatics: No axilla or inguinal lymphadenopathy Assessment And Plan - Current Problems (Diagnosis) (1) Acute respiratory failure Current Visit: Yes Status: Acute Plan: Likely secondary to PNA, COPD exacerbation; resolved resolved - Will provide supportive care with oxygen as needed. Required venti-mask, now weaned to her home 3L oxygen - Treat underlying disease. Qualifiers: Qualified Code(s): J96.01 - Acute respiratory failure with hypoxia (2) Pneumonia Onset Date: 10/13/16 Current Visit: Yes Status: Acute Plan: CURB 65 score of 1; PSI score of 103, Class IV, moderate severity with a 8.2-9.3 % mortality risk. - Sputum cultures positive for Enterobacter Cloacae, sensitive to Levaquin. WBC count improving, patient clinically improving, oxygen requirement now back to baseline. IV antibiotics discontinued. Continue PO Levaquin - Provide supportive care as above. - CT scan of the chest with Mild to moderate right and mild left pulmonary opacities probably indicating pneumonia. Soft tissue surrounding right lower lobe bronchus with mild right lower lobe atelectasis. This may indicate neoplasm or pneumonia. This should be followed until it has cleared. If it does not bronchoscopy would be recommended. Dvfb-lh-jaclmary mediastinal and hilar lymphadenopathy may indicate neoplasm artery reactive in nature Qualifiers: Qualified Code(s): J18.1 - Lobar pneumonia, unspecified organism (3) COPD exacerbation Onset Date: 10/18/15 Current Visit: No Status: Acute Plan: Likely secondary to underlying PNA - Breathing treatments as needed - Oxygen as needed. Now weaned to home oxygen of 3L - continue PO steroid (4) Diabetes mellitus Current Visit: No Status: Chronic Plan: Accu-checks and sliding scale insulin. - Will continue home medications as tolerated. Will adjust medications as needed. Qualifiers: Qualified Code(s): E11.40 - Type 2 diabetes mellitus with diabetic neuropathy , unspecified (5) Diabetic foot ulcer Onset Date: 10/22/17 Current Visit: No Status: Chronic Plan: Patient of Dr. Peterson - Will consult Dr. Peterson for further wound management, recommendations appreciated. Continue wound care - Cultures positive for Morganella morganii, sensitive to levaquin and MRSA, sensitive to Bactrim. We will continue antibiotics. Qualifiers: Qualified Code(s): E11.621 - Type 2 diabetes mellitus with foot ulcer; L97.525 - Non-pressure chronic ulcer of other part of left foot with muscle involvement without evidence of necrosis (6) PVD (peripheral vascular disease) Onset Date: 06/19/18 Current Visit: No Status: Chronic Plan: - arterial doppler of bilateral lower extremities with mild disease involving B/ L LE arteries (7) Diastolic CHF, chronic Current Visit: No Status: Chronic (8) HTN (hypertension) Onset Date: 08/07/16 Current Visit: No Status: Chronic Qualifiers: Qualified Code(s): I10 - Essential (primary) hypertension (9) Hyperlipidemia Onset Date: 06/19/18 Current Visit: No Status: Chronic Plan: Stable, Restart home medications Qualifiers: Qualified Code(s): E78.2 - Mixed hyperlipidemia (10) Depression with anxiety Onset Date: 06/19/18 Current Visit: No Status: Chronic (11) Cough with hemoptysis Current Visit: Yes Status: Acute Plan: Likely secondary to forceful coughing spells (more likely) vs PNA vs neoplasm - CT scan of the chest done, Mild to moderate right and mild left pulmonary opacities probably indicating pneumonia versus neoplasm. - Continue to monitor. (12) Hilar lymphadenopathy Current Visit: Yes Status: Acute Plan: Tdci-lb-jkiggukk mediastinal and hilar lymphadenopathy may indicate neoplasm artery vs reactive in nature. - This will require outpatient follow up with pulmonology - Pulmonology consulted, recommendations appreciated. As patient has been on Plavix, outpatient bronchoscopy be scheduled by pulmonology. Her Plavix will likely need to be held prior to discharge though will confirm with pulmonology prior to discharge (13) Abnormal CT of the chest Current Visit: Yes Status: Acute Plan: Soft tissue surrounding right lower lobe bronchus with mild right lower lobe atelectasis. This may indicate neoplasm or pneumonia. This should be followed until it has cleared. If it does not bronchoscopy would be recommended. - Pulmonology consulted. Recommendations appreciated. Outpatient bronchoscopy/ biopsy planned. - Plan DVT Prophylaxis: Lovenox GI prophylaxis: None Diet: Diabetic Plan: Pending symptomatic improvement and pulmonology recommendations. Anticipate discharge in the next 24-48 hrs once clinically improved
[2019-04-21] MEDS: TRAMADOL HCL 50 MG TAB PO PRN ×2 (11:38→22:46)
--- NOTE | 2019-04-21 11:41 | P.CNS ---
Date of Consult: 04/21/19 Chief Complaint: Lung mass History of Present Illness: Patient is 63 years of age with a history of COPD active smoker admitted with a 2 week history of cough congestion hemoptysis this found to have right-sided perihilar mass denies any weight loss no fever chills complaining of some weakness Allergies codeine [Codeine] Allergy (Intermediate, Verified 01/08/19 14:45) Itching/Hives/Rash flu vaccine Allergy (Uncoded 02/03/17 19:52) Anaphylaxis Home Medications: Aspirin 81 mg PO DAILY 01/30/12 Divalproex ER [Depakote *ER] 250 mg PO BID 01/19/15 Clopidogrel Bisulfate [Plavix] 1 tab PO DAILY 09/21/16 Lisinopril [Zestril] 10 mg PO DAILY 09/21/16 Pregabalin [Lyrica] 300 cap PO BID 09/21/16 Sertraline [Zoloft*] 1 tab PO DAILY 09/21/16 Insulin 70/30 NPH/Reg Human [Novolin 70/30*] 0 unit SQ SEECOM 02/03/17 Montelukast [Singulair*] 1 tab PO BEDTIME 10/21/17 Pravastatin Sodium 40 mg PO BEDTIME 10/21/17 Albuterol Sulfate [Proventil Hfa] 2 inhaler IH QID PRN 11/22/17 Loperamide [Imodium*] 2 mg PO TID PRN 06/19/18 Albuterol Neb [Proventil 0.083% Neb Soln] 2.5 mg NEB QID 04/17/19 Arginine/Ascorbate Sod/Adrianne AC [Arginaid Powder] 1 packet PO DAILY 04/17/19 Ascorbic Acid [Vitamin C] 500 mg PO BID 04/17/19 Furosemide [Lasix] 20 mg PO DAILY 04/17/19 [place]-3/Dha/Epa/Fish Oil [Fish Oil 1,000 mg Softgel] 1 cap PO DAILY 04/17/19 Umeclidinium Brm/Vilanterol Tr [Anoro Ellipta 62.5-25 Mcg INH] 1 puff IN DAILY 04/17/19 - Past Medical/Surgical History Diabetic: Yes -: Neuropathy -: Diabetes mellitus type 1 insulin-dependent -: A-Fib -: COPD, severe, 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 She also has a common-law partner. She does not work. Patient is DNR. - Family History Father Medical History: Heart disease, Lung disease Mother Medical History: Lung disease, Diabetes - Social History Smoking Status: Current every day smoker Alcohol use: No CD- Drugs: No Caffeine use: Yes Place of Residence: Home Review of Systems 10-point ROS is otherwise unremarkable General: Weakness Respiratory: Cough, Shortness of Breath Physical Examination Temp Pulse Resp BP Pulse Ox 97.8 F 76 18 140/64 93 04/21/19 09:29 04/21/19 09:29 04/21/19 09:29 04/21/19 09:29 04/21/19 09:29 General: Alert, Oriented x3 HEENT: Atraumatic Neck: Supple Respiratory: Clear to auscultation bilaterally, Expiratory wheezes Cardiovascular: No edema, Regular rate/rhythm, Normal S1 S2, Other (Patient is seeing a foot doctor for a hole in her left foot) Gastrointestinal: Normal bowel sounds, Soft and benign - Problems (1) Lung cancer Current Visit: Yes Status: Acute Plan: Patient is 63 years of age with a history of heavy smoking and COPD admitted with a cough congestion worsening shortness of breath chest pressure and hemoptysis does have a right hilar mass consistent with lung cancer patient is compliant with it inhalers and be discharged home on levofloxacin prednisone continue with her bronchodilators as patient is on Plavix and wait for a week to schedule for an outpatient bronchoscopy I have discussed with the patient risk and benefit include bleeding infection and lung collapse patient clearly agrees multiple organisms isolated from the wound culture in sputum sensitive to levofloxacin of advise patient to hold off on the Plavix
[2019-04-21] MEDS: MONTELUKAST 10 MG TAB PO SCH (21:31)
[2019-04-21] MEDS: ATORVASTATIN 10 MG TAB PO SCH (21:32)
[2019-04-21] MEDS: ALPRAZOLAM 0.5 MG TABLET PO PRN (22:46)
[2019-04-22] MEDS: ALBUTEROL 2.5 MG/3 ML NEB SOL NEB SCH ×2 (02:00→08:40)
[2019-04-22] MEDS: IPRATROPIUM BROM 0.5MG/2.5ML NEB SCH ×2 (02:00→08:40)
[2019-04-22 05:43] LABS: Absolute Lymphocytes (CBC) 1.4 K/uL (0.7-4.9); Basophils % 0.2 % (0-1.3); Hematocrit 35.4 % (36.0-45.0); Lymphocytes % 14.9 % (15.3-44.8); RBC Red Blood Cell Count 4.47 M/uL (3.86-4.86)
[2019-04-22 05:58] VITALS: BMI 28.6
[2019-04-22 06:10] LABS: Albumin 2.8 g/dL (3.4-5.0); Bilirubin Total 0.2 mg/dL (0.2-1.0); Potassium 4.9 mmol/L (3.5-5.1); Protein, Total 7.6 g/dL (6.4-8.2)
[2019-04-22 07:19] LABS: Anisocytosis 1+; Blood Morphology Comment NOTED (NOT SEEN); Platelet Estimate ADEQ
[2019-04-22] MEDS: HOME MED 1 EA UNK (Umeclidinium Brm/Vilanterol Tr [Anoro Ellipta 62.5-25 Mcg Inh] 1 PUFF) IN SCH (09:00)
[2019-04-22] MEDS: MUPIROCIN 2% OINT 22GM TUBE TOP SCH (09:00)
[2019-04-22] MEDS: DIVALPROEX ER 250 MG TAB PO SCH (09:14)
[2019-04-22] MEDS: MINOCYCLINE HCL 50 MG CAP PO SCH (09:14)
[2019-04-22] MEDS: ASPIRIN 81 MG CHEWABLE TABLET PO SCH (09:14)
[2019-04-22] MEDS: PREGABALIN 150 MG CAP PO SCH (09:14)
[2019-04-22] MEDS: SERTRALINE HCL 100 MG TAB PO SCH (09:14)
[2019-04-22] MEDS: FUROSEMIDE 20 MG TABLET PO SCH (09:14)
[2019-04-22] MEDS: INSULIN -REGULAR HUMAN 50 UNIT/0.5 ML ML SQ SCH ×2 (09:15→11:30)
[2019-04-22] MEDS: SMZ./TMP. 800/160 MG TABLET PO SCH (09:15)
[2019-04-22] MEDS: predniSONE 20 MG TAB PO SCH (09:15)
[2019-04-22] MEDS: levoFLOXacin 500 MG TAB PO SCH (09:15)
[2019-04-22] MEDS: DOCOSAHEXANOIC AC/EPA 1000 MG PO SCH (09:15)
[2019-04-22 11:16] VITALS: O2SAT 98
[2019-04-22 17:44] VITALS: BP 156/67; TEMP 97
--- NOTE | 2019-04-23 07:00 | DS ---
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 Peterson. Admitting Diagnoses: 1.Acute respiratory failure with hypoxia. 2.Pneumonia, left lower lobe secondary to enterobacter. 3.Acute chronic obstructive pulmonary disease exacerbation. 4.Diabetes mellitus type 2 with long-term use of insulin with hyperglycemia. 5.Diabetic foot ulcer on the left with involvement of muscle without evidence of necrosis. 6.Peripheral vascular disease. 7.Chronic diastolic heart failure. 8.Essential hypertension. 9.Mixed hyperlipidemia. 10.Depression with anxiety. Discharge Diagnoses: 1.Acute respiratory failure with hypoxia secondary to pneumonia and chronic obstructive pulmonary di sease, resolving. 2.Pneumonia, left lower lobe as well as right lobe secondary to enterobacter. 3.Diabetic foot ulcer secondary to methicillin-resistant Staphylococcus aureus and Morganella, statu s post bedside debridement. 4.Diabetes mellitus type 2 with long-term use of insulin and foot ulcer. 5.Acute chronic obstructive pulmonary disease exacerbation, improved. 6.Peripheral vascular disease. 7.Chronic diastolic heart failure. 8.Essential hypertension, stable. 9.Mixed hyperlipidemia, stable. 10.Depression with anxiety. 11.Hemoptysis secondary to lung mass, possibly malignant. 12.Hilar lymphadenopathy. Patient to hold Plavix and aspirin for 1 week to have bronchoscopy schedu led as outpatient. Hospital Course: Patient is a 63-year-old female with past medical history of diabetes, COPD, conges tive heart failure, peripheral vascular disease, diabetic foot ulcer, chronic respiratory failure on home O2, comes in with progressively worsening shortness of breath. Patient was found to have COPD e xacerbation. She initially required BiPAP and was then able to be weaned off. She was started on [place] PD treatment with nebulizers and steroids. Patient was seen by Pulmonology, Dr. Cahu. Her CT sc an did show lobar pneumonia both in the left and right including mid left lower lobe and krel-if-ydvd rate right lung opacities. Sputum cultures grew out enterobacter. She was also found to have hilar lymphadenopathy, and in the presence of bronchoscopy, there is a possibility of lung cancer. Patient will require bronchoscopy for biopsy and cytology studies; however, as the patient is on Plavix, she will need to hold Plavix for minimum of 5 days after discharge and hold aspirin for a minimum of 2 d ays and to have biopsy scheduled as an outpatient. Patient was also seen by Dr. Slate with Podiatry. Patient did well with the bedside debridement. Her cultures grew out MRSA and Morganella, which we re sensitive to Levaquin as were her sputum cultures. Patient did have some mild electrolyte abnorma lities, which were corrected. Her blood sugars not well controlled and insulin was adjusted. Her wh ite count normalized. Urine culture showed mixed yesi. Blood cultures were negative. Patient was then cleared for discharge from quantitative consultant's standpoint. She will need to continue following with [facility] as well as Dr. Chau with Pulmonology to have bronchoscopy set up as an outpati ent after holding Plavix and aspirin. Patient to return to ER for worsening condition. Medications: As per medication reconciliation list. Finish off course of Levaquin. Diet: Diabetic, heart healthy, sodium-restricted diet and fluid-restricted diet. Activity: As tolerated. Physical Examination: General: Awake, alert, oriented x3, not in any acute distress. Appears older than stated age. CV: S1, S2. Respiratory: Moving air well bilaterally. No wheezing. Gastrointestinal: Abdomen is soft, nontender, nondistended. Positive bowel sounds. Extremities: No clubbing, cyanosis, edema. Skin: Left foot wound wrapped, clean, dry, intact. Neurologic: Nonfocal. Total time spent discharging patient was 38 minutes. /LUIS Voice ID: [id number] Report ID: [id number]
== END 2019-04-22 12:45 | disposition home or self-care (01) | DRG 177 ==
LOC: ER 10:30 → ERHOLD 12:48 → 2ND 16:28
PROVIDERS: ADMIT Family Medicine; ATTEND Family Medicine
PROC: 0HDNXZZ Extraction of Left Foot Skin, External Approach (ICD-10-PCS; principal; 2019-04-21)
DX: J15.6 Pneumonia due to other Gram-negative bacteria (principal); J96.21 Acute and chronic respiratory failure with hypoxia; J44.0 Chronic obstructive pulmonary disease with (acute) lower respiratory infection; J44.1 Chronic obstructive pulmonary disease with (acute) exacerbation; L97.525 Non-pressure chronic ulcer of other part of left foot with muscle involvement without evidence of necrosis; I50.32 Chronic diastolic (congestive) heart failure; J98.11 Atelectasis; Z99.81 Dependence on supplemental oxygen; E11.621 Type 2 diabetes mellitus with foot ulcer; B95.62 Methicillin resistant Staphylococcus aureus infection as the cause of diseases classified elsewhere; B96.4 Proteus (mirabilis) (morganii) as the cause of diseases classified elsewhere; R91.8 Other nonspecific abnormal finding of lung field; R59.1 Generalized enlarged lymph nodes; E11.40 Type 2 diabetes mellitus with diabetic neuropathy, unspecified; E11.51 Type 2 diabetes mellitus with diabetic peripheral angiopathy without gangrene; I11.0 Hypertensive heart disease with heart failure; Z66 Do not resuscitate; F17.210 Nicotine dependence, cigarettes, uncomplicated; E78.2 Mixed hyperlipidemia; F41.8 Other specified anxiety disorders; I48.91 Unspecified atrial fibrillation; Z79.82 Long term (current) use of aspirin; Z79.52 Long term (current) use of systemic steroids; Z88.5 Allergy status to narcotic agent; Z88.7 Allergy status to serum and vaccine
CPT/HCPCS: 36415; 71045; 71260; 80048; 80053; 80076; 81003; 81015; 82550; 82553; 82805; 82947; 82962; 83605; 83690; 83735; 84100; 84145; 84484; 85014; 85018; 85025; 85610; 85730; 87040; 87070; 87077; 87086; 87088; 87186; 87205; 93005; 93925; 94640; 94760; 96365; 96366; 96375; 97116; 97161; 97530; 99285; J0456; J0696; J1650; J2405; J2920; J7512; Q9967

== ENCOUNTER 2019-04-23 19:32 | Inpatient (IN) | payer OTHER ==
[2019-04-23] MEDS ORDERED: LEVALBUTEROL 1.25 MG/3 ML NEB ONE (19:56)
[2019-04-23] MEDS ORDERED: NA CHLORIDE 0.9% 500 ML ONE (19:56)
[2019-04-23 20:07] LABS: Absolute Lymphocytes (CBC) 1.8 K/uL (0.7-4.9); Basophils % 0.4 % (0-1.3); Lymphocytes % 13.6 % (15.3-44.8)
--- NOTE | 2019-04-23 20:15 | RAD REPORT ---
EXAM DESCRIPTION: Jaime Single View04/23/2019 8:05 pm CLINICAL HISTORY: Cough COMPARISON: April 19 2019 cat scan FINDINGS: The right lower lobe atelectasis appears mildly worsened. The additional right lung opacities are probably without significant change. Mild left basilar opacities appear mildly improved Heart is normal size
[2019-04-23 20:27] LABS: BUN Blood Urea Nitrogen 33 mg/dL (7-18); Bicarbonate 27 mmol/L (21-32); Glucose Level 338 mg/dL (74-106); Potassium 5.2 mmol/L (3.5-5.1); Sodium Level 135 mmol/L (136-145); Troponin (Emerg Dept Use Only) < 0.02 ng/mL (0.0-0.045)
[2019-04-23 20:32] LABS: Blood Morphology Comment NOT SEEN (NOT SEEN); Platelet Estimate ADEQ
--- NOTE | 2019-04-23 22:14 | EDPHYS ---
Physician Documentation [facility] Name: Nakia Turcios Age: 63 yrs Sex: Female : 1955 Arrival Date: 04/23/2019 Time: 19:34 Bed 8 Private MD: Erasmo Jimenez ED Physician Sascha Singletary HPI: 04/23 19:58 This 63 yrs old Female presents to ER via EMS with complaints of cough, rn weakness, sob. 19:58 The patient or guardian reports cough. Onset: The symptoms/episode began/occurred at an rn unknown time. Severity of symptoms: At their worst the symptoms were moderate, in the emergency department the symptoms are unchanged. Modifying factors: The symptoms are alleviated by inhaler, the symptoms are aggravated by. Associated signs and symptoms: Pertinent negatives: fever. The patient has experienced similar episodes in the past. The patient has been recently seen by a physician: The patient has been recently been admitted at [facility]. Recently admitted here, and discharged yesterday, told by Dr. Chau likely has lung cancer, is scheduled for outpt biopsy this week, had to hold plavix. Reports doesn't feel much better after leaving hospital, still coughing, no longer coughing up bright blood. + mild sob, improves with oxygen. + generalized weakness. . Historical: - Allergies: 19:37 Codeine (Anaphylaxis); ss 19:37 FLU VACCINE; ss - Home Meds: 19:39 Albuterol Inhl 4 times per day [Active]; alprazolam 1 mg Oral tab 3 times per day for lp1 Anxiety [Active]; Anoro Ellipta 62.5-25 mcg/actuation inhalation dsdv 1 puff once daily [Active]; Arginaid 4.5 gram-156 mg/9.2 gram Oral pwpk daily [Active]; ascorbic acid (vitamin C) 500 mg tab twice a day [Active]; aspirin 81 mg Oral chew 1 tab once daily [Active]; atorvastatin 20 mg Oral tab 1 tab nightly [Active]; bupropion HCl 150 mg Oral TbER 1 tab 2 times per day [Active]; clopidogrel 75 mg Oral tab [Active]; Daliresp 500 mcg Oral tab 1 tab once daily [Active]; Depakote ER 250 mg Oral Tb24 twice a day [Active]; divalproex 250 mg Oral Tb24 2 tabs once daily [Active]; Fish Oil 1,000 mg Oral cap daily [Active]; Insulin: Novolin 70/30 130 units in am and 105 at night Sub-Q [Active]; Lasix 20 mg Oral tab 1 tab once daily [Active]; lisinopril 10 mg Oral tab 1 tab once daily [Active]; Lyrica 300mg Oral 2 times per day [Active]; montelukast 10 mg Oral tab once daily [Active]; OMEGA-3 daily [Active]; pravastatin 40 mg Oral tab 1 tab once daily [Active]; sertraline 100 mg Oral tab 1 tab once daily [Active]; tizanidine 2 mg Oral cap twice a day [Active]; - PMHx: 19:37 CHF; COPD; Hypertension; Diabetes - IDDM; neuropathy; ss - PSHx: 19:37 Knee surgery; Appendectomy; wrist; cataract; pain pump; R foot; ss - Immunization history:: Adult Immunizations up to date, Flu vaccine is not up to date. - Social history:: Smoking status: Patient uses tobacco products, Patient reports she quit smoking 03/01/19. - Ebola Screening: : Patient denies exposure to infectious person Patient denies travel to an Ebola-affected area in the 21 days before illness onset. - Family history:: not pertinent. - Hospitalizations: : The patient was recently seen at [facility]. ROS: 19:58 Constitutional: Negative for fever, chills Eyes: Negative for injury, pain, redness, rn and discharge, Neck: Negative for injury, pain, and swelling, Cardiovascular: Negative for palpitations, and edema, Respiratory: + cough and sob Abdomen/GI: Negative for abdominal pain, nausea, vomiting, diarrhea, and constipation, MS/Extremity: Negative for injury and deformity, Skin: + open wound to left foot Neuro: + generalized weakness Exam: 19:58 Constitutional: This is a well developed, well nourished patient who is awake, alert, rn and in no acute distress. Head/Face: Normocephalic, atraumatic. Eyes: Pupils equal round and reactive to light, extra-ocular motions intact. Periorbital areas with no swelling, redness, or edema. Cardiovascular: Regular rate and rhythm. No pulse deficits. Respiratory: Mild tachypnea, coarse bilateral breath sounds with rhonchi right mid lefty, + faint exp wheezing Abdomen/GI: soft, non-tender MS/ Extremity: Pulses equal, no cyanosis. Neurovascular intact. Full, normal range of motion. Equal circumference. Neuro: Awake and alert, GCS 15, oriented to person, place, time, and situation. Cranial nerves II-XII grossly intact. Motor strength 5/5 in all extremities. Sensory grossly intact. Vital Signs: 19:37 BP 135 / 78; Resp 19; Temp 98.0(TE); Weight 70.31 kg; Height 5 ft. 3 in. (160.02 cm); ss Pain 7/10; 19:45 Pulse 95; Pulse Ox 95% on NC; oe 20:12 BP 113 / 70; Pulse 91; Resp 25; tl1 21:01 BP 124 / 49; Pulse 94; Resp 22; Pulse Ox 95% on 4 lpm NC; tl1 22:30 BP 109 / 85; Pulse 89; Resp 19; Pulse Ox 95% on 4 lpm NC; lp1 23:13 BP 97 / 57; Pulse 81; Resp 29; Temp 98.8; Pulse Ox 95% on 4 lpm NC; Pain 5/10; tl1 23:19 BP 107 / 44; Pulse 82; Resp 20; Pulse Ox 95% 4 lpm ; lp1 19:37 Body Mass Index 27.46 (70.31 kg, 160.02 cm) ss MDM: 19:39 Patient medically screened. rn 22:11 Differential Diagnosis: Bronchitis Viral Syndrome Pneumonia. Data reviewed: vital rn signs, nurses notes, lab test result(s), EKG, radiologic studies, CT scan, plain films, and as a result, I will admit patient. Counseling: I had a detailed discussion with the patient and/or guardian regarding: the historical points, exam findings, and any diagnostic results supporting the discharge/admit diagnosis, lab results, radiology results, the need for further work-up and treatment in the hospital. Response to treatment: the patient's symptoms have mildly improved after treatment, and as a result, I will admit patient. Admission orders: after a detailed discussion of the patient's condition and case, the admit orders are written by me. ED course: Family states seems worse than when in hospital, too weak to stand, have plans to get her to rehab facility but has not been organized. NO gross change in CXR. Increase in WBC, elevated bands and neutrophils. Will admit to Dr. Fowler. . 04/23 19:46 Order name: CBC with Diff; Complete Time: 20:33 rn 04/23 19:46 Order name: Basic Metabolic Panel; Complete Time: 20:33 rn 04/23 19:46 Order name: Urine Microscopic Only rn 04/23 19:46 Order name: Troponin (emerg Dept Use Only); Complete Time: 20:33 rn 04/23 20:09 Order name: Manual Differential; Complete Time: 20:33 EDMS 04/23 22:57 Order name: Urine Dipstick--Ancillary (enter results) ag4 04/23 19:46 Order name: IV Start; Complete Time: 19:58 rn 04/23 19:46 Order name: Urine Dipstick-Ancillary (obtain specimen); Complete Time: 22:45 rn 04/23 19:46 Order name: EKG; Complete Time: 19:47 rn 04/23 19:46 Order name: EKG - Nurse/Tech; Complete Time: 19:58 rn 04/23 19:46 Order name: XRAY Chest (1 view); Complete Time: 20:33 rn 04/23 19:57 Order name: CT Soft Tissue Neck W/contr rn Administered Medications: 19:58 Drug: Xopenex (3) 1.25 mg Route: Inhalation; tl1 19:59 Drug: NS 0.9% 500 ml Route: IV; Rate: bolus; Site: right forearm; tl1 21:00 Follow up: IV Status: Completed infusion; IV Intake: 500ml lp1 Disposition: 04/23/19 22:13 Hospitalization ordered by Jose Eduardo Fowler for Inpatient Admission. Preliminary diagnosis are Weakness, Bibasilar Pneumonia, Chronic obstructive pulmonary disease with acute lower respiratory infection. - Bed requested for Telemetry/MedSurg (Inpatient). - Status is Inpatient Admission. tl1 - Condition is Stable. - Problem is an ongoing problem. - Symptoms have improved. UTI on Admission? No Signatures: Dispatcher [employer] EDWV Karla Alan RN RN mw Nieto, Roman, MD MD rn Smirch, Shelby, RN RN ss Pena, Laura, RN RN lp1 Melani Mendosa RN RN tl1 Corrections: (The following items were deleted from the chart) 22:33 22:13 Hospitalization Ordered by Jose Eduardo Fowler DO for Inpatient Admission. Preliminary mw diagnosis is Weakness; Bibasilar Pneumonia; Chronic obstructive pulmonary disease with acute lower respiratory infection. Bed requested for Telemetry/MedSurg (Inpatient). Status is Inpatient Admission. Condition is Stable. Problem is an ongoing problem. Symptoms have improved. UTI on Admission? No. rn 04/24 00:17 04/23 22:33 04/23/2019 22:13 Hospitalization Ordered by Jose Eduardo Fowler DO for Inpatient tl1 Admission. Preliminary diagnosis is Weakness; Bibasilar Pneumonia; Chronic obstructive pulmonary disease with acute lower respiratory infection. Bed requested for Telemetry/MedSurg (Inpatient). Status is Inpatient Admission. Condition is Stable. Problem is an ongoing problem. Symptoms have improved. UTI on Admission? No. mw
--- NOTE | 2019-04-23 22:14 | ER ---
Nurse's Notes [facility] Name: Nakia Turcios Age: 63 yrs Sex: Female : 1955 Arrival Date: 04/23/2019 Time: 19:34 Bed 8 Private MD: Erasmo Jimenez Diagnosis: Weakness;Bibasilar Pneumonia;Chronic obstructive pulmonary disease with acute lower respiratory infection Presentation: 04/23 19:35 Presenting complaint: Patient states: Recently admitted to hospital for pneumonia and ss told she has lung CA. Patient reports her daughter called EMS today because her cough is getting more painful and she believes she released her from the hospital too soon. Patient also reports that she has blood tinged sputum since admission. Transition of care: patient was not received from another setting of care. Onset of symptoms is unknown. Risk Assessment: Do you want to hurt yourself or someone else? Patient reports no desire to harm self or others. Initial Sepsis Screen: Does the patient meet any 2 criteria? No. Patient's initial sepsis screen is negative. Care prior to arrival: None. 19:35 Acuity: JESUSITA 3 ss 19:35 Method Of Arrival: EMS: [facility] ss 22:43 Initial Sepsis Screen: Does the patient have a suspected source of infection? No. lp1 Patient's initial sepsis screen is negative. Historical: - Allergies: 19:37 Codeine (Anaphylaxis); ss 19:37 FLU VACCINE; ss - Home Meds: 19:39 Albuterol Inhl 4 times per day [Active]; alprazolam 1 mg Oral tab 3 times per day for lp1 Anxiety [Active]; Anoro Ellipta 62.5-25 mcg/actuation inhalation dsdv 1 puff once daily [Active]; Arginaid 4.5 gram-156 mg/9.2 gram Oral pwpk daily [Active]; ascorbic acid (vitamin C) 500 mg tab twice a day [Active]; aspirin 81 mg Oral chew 1 tab once daily [Active]; atorvastatin 20 mg Oral tab 1 tab nightly [Active]; bupropion HCl 150 mg Oral TbER 1 tab 2 times per day [Active]; clopidogrel 75 mg Oral tab [Active]; Daliresp 500 mcg Oral tab 1 tab once daily [Active]; Depakote ER 250 mg Oral Tb24 twice a day [Active]; divalproex 250 mg Oral Tb24 2 tabs once daily [Active]; Fish Oil 1,000 mg Oral cap daily [Active]; Insulin: Novolin 70/30 130 units in am and 105 at night Sub-Q [Active]; Lasix 20 mg Oral tab 1 tab once daily [Active]; lisinopril 10 mg Oral tab 1 tab once daily [Active]; Lyrica 300mg Oral 2 times per day [Active]; montelukast 10 mg Oral tab once daily [Active]; OMEGA-3 daily [Active]; pravastatin 40 mg Oral tab 1 tab once daily [Active]; sertraline 100 mg Oral tab 1 tab once daily [Active]; tizanidine 2 mg Oral cap twice a day [Active]; - PMHx: 19:37 CHF; COPD; Hypertension; Diabetes - IDDM; neuropathy; ss - PSHx: 19:37 Knee surgery; Appendectomy; wrist; cataract; pain pump; R foot; ss - Immunization history:: Adult Immunizations up to date, Flu vaccine is not up to date. - Social history:: Smoking status: Patient uses tobacco products, Patient reports she quit smoking 03/01/19. - Ebola Screening: : Patient denies exposure to infectious person Patient denies travel to an Ebola-affected area in the 21 days before illness onset. - Family history:: not pertinent. - Hospitalizations: : The patient was recently seen at [facility]. Screenin:15 Abuse screen: Denies threats or abuse. Denies injuries from another. Nutritional lp1 screening: No deficits noted. Tuberculosis screening: No symptoms or risk factors identified. Fall Risk Total Saucedo Fall Scale indicates High Risk Score (45 or more points). Fall prevention measures have been instituted. Side Rails Up X 2 As available patient and family educated on Fall Prevention Program and Strategies. Assessment: 19:45 General: Appears uncomfortable, Behavior is calm, cooperative, appropriate for age. tl1 Pain: Denies pain. Neuro: Level of Consciousness is awake, alert, obeys commands, Oriented to person, place, time, situation. Cardiovascular: Denies chest pain. Respiratory: Reports shortness of breath at rest cough that is productive, pain with cough Airway is patent Trachea midline Respiratory effort is unlabored, Breath sounds with wheezes bilaterally. GI: Abdomen is round Bowel sounds present X 4 quads. Abd is soft and non tender X 4 quads. : No signs and/or symptoms were reported regarding the genitourinary system. EENT: No signs and/or symptoms were reported regarding the EENT system. Derm: No signs and/or symptoms reported regarding the dermatologic system. 21:00 Reassessment: Patient appears in no apparent distress at this time. Patient and/or lp1 family updated on plan of care and expected duration. Pain level reassessed. Patient coughing, states "it feels like something is stuck and I can't get it out". 22:30 Reassessment: Assisted patient to [facility] [place], [place]. Neuro: Gait is steady. lp1 Vital Signs: 19:37 BP 135 / 78; Resp 19; Temp 98.0(TE); Weight 70.31 kg; Height 5 ft. 3 in. (160.02 cm); ss Pain 7/10; 19:45 Pulse 95; Pulse Ox 95% on NC; oe 20:12 BP 113 / 70; Pulse 91; Resp 25; tl1 21:01 BP 124 / 49; Pulse 94; Resp 22; Pulse Ox 95% on 4 lpm NC; tl1 22:30 BP 109 / 85; Pulse 89; Resp 19; Pulse Ox 95% on 4 lpm NC; lp1 23:13 BP 97 / 57; Pulse 81; Resp 29; Temp 98.8; Pulse Ox 95% on 4 lpm NC; Pain 5/10; tl1 23:19 BP 107 / 44; Pulse 82; Resp 20; Pulse Ox 95% 4 lpm ; lp1 19:37 Body Mass Index 27.46 (70.31 kg, 160.02 cm) ED Course: 19:34 Patient arrived in ED. am2 19:35 Erasmo Jimenez MD is Private Physician. am2 19:36 Triage completed. ss 19:37 Arm band placed on left wrist. ss 19:39 Sascha Singletary MD is Attending Physician. rn 19:40 Melani Mendosa RN is Primary Nurse. tl1 19:58 No provider procedures requiring assistance completed. Inserted saline lock: 20 gauge tl1 in right forearm, using aseptic technique. Blood collected. 20:00 Patient has correct armband on for positive identification. Placed in gown. Bed in low lp1 position. Call light in reach. polygraph technician on. Pulse ox on. NIBP on. 20:06 XRAY Chest (1 view) In Process Unspecified. EDMS 20:08 Radiology exam delayed due to lab results not completed at this time. (BUN/Creatinine) nj IV insertion attempt and/or patient not having appropriate IV at this time. 20:49 CT completed. Patient tolerated procedure well. Patient moved to CT via stretcher. nj Patient moved back from CT. 20:56 CT Soft Tissue Neck W/contr In Process Unspecified. EDMS 22:13 Jose Eduardo Fowler DO is Hospitalizing Provider. rn 22:43 Patient admitted, IV remains in place. lp1 Administered Medications: 19:58 Drug: Xopenex (3) 1.25 mg Route: Inhalation; tl1 19:59 Drug: NS 0.9% 500 ml Route: IV; Rate: bolus; Site: right forearm; tl1 21:00 Follow up: IV Status: Completed infusion; IV Intake: 500ml lp1 Intake: 21:00 IV: 500ml; Total: 500ml. lp1 Outcome: 22:13 Decision to Hospitalize by Provider. rn 22:43 Condition: stable lp1 22:43 Instructed on the need for admit. 23:18 Admitted to Tele accompanied by nurse, via stretcher, room 230, with oxygen, with lp1 chart, Report called to [facility] [place] [id number] 00:17 Patient left the ED. tl1 Signatures: Dispatcher [employer] EDME Sascha Singletary MD MD rn Smirch, Shelby, RN RN ss Pena, Laura, RN RN 1 Melani Mendosa RN RN tl1 Rudy Majano [place] oe Moreno, Amanda 2
[2019-04-23 23:26] LABS: Urine Bacteria <20 /HPF (<20); Urine Culture Reflex Order NOT NEEDED; Urine RBC <5 /HPF (NONE SEEN)
[2019-04-23 23:30] LABS: Urine Blood NEGATIVE (NEG); Urine Glucose 2+ (NEG); Urine Protein NEGATIVE (NEG); Urine Specific Gravity 1.015 (1.005-1.030); Urine pH 5.5 (5.0-7.0)
--- NOTE | 2019-04-23 23:45 | P.HP ---
Certification for Inpatient Patient admitted to: Inpatient With expected LOS: >2 Midnights Patient will require the following post-hospital care: Alf Practitioner: I am a practitioner with admitting privileges, knowledge of patient current condition, hospital course, and medical plan of care. Services: Services provided to patient in accordance with Admission requirements found in Title 42 Section 412.3 of the Code of Federal Regulations Patient History Date of Service: 04/23/19 Primary Care Provider: Dr. Whalen; Pulmonary-Dr. Chau Reason for admission: Increasing cough, congestion and shortness of breath History of Present Illness: 63-year-old female with multiple medical problems including COPD on chronic oxygen, diabetes mellitus type 2 insulin dependent, PVD, chronic diastolic heart failure, hypertension, hyperlipidemia, depression with anxiety, and obesity. Patient was recently admitted and discharged on 04/22/2019 for acute on chronic respiratory failure related to left lower lobe pneumonia and COPD exacerbation. Since being discharge patient has had increase cough, congestion and shortness of breath. She was sent home with antibiotics but she has not started medication. Patient also reported some hemoptysis. Recent CT scan revealed hilar lymphadenopathy. This may be related to underlying lung cancer. Patient was told to hold Plavix and aspirin for 1 week in preparation for outpatient bronchoscopy. In the ER patient was evaluated. Increase cough, congestion noted. Patient required 4 L per nasal cannula. On lab white count 13.5 was noted. This was increased since last discharge. 2 bands noted. Hemoglobin 12.6. Sodium 135, potassium 5.2. BUN of 33, creatinine 1.17 with a GFR 47. Glucose 338. Chest x -ray revealed left lower lobe pneumonia with right lower lobe atelectasis. Due to worsening symptoms patient was admitted for further evaluation and treatment. When I saw the patient ER, increase cough noted. Patient was stable on a nasal cannula. Family desires skilled placement at discharge. Family concerned about possible diagnosis of lung cancer. Patient reports some difficulty eating food due to cough. Allergies codeine [Codeine] Allergy (Intermediate, Verified 01/08/19 14:45) Itching/Hives/Rash flu vaccine Allergy (Uncoded 02/03/17 19:52) Anaphylaxis Home medications list reviewed: Yes Home Medications: Aspirin 81 mg PO DAILY 01/30/12 Divalproex ER [Depakote *ER] 250 mg PO BID 01/19/15 Clopidogrel Bisulfate [Plavix] 1 tab PO DAILY 09/21/16 Lisinopril [Zestril] 10 mg PO DAILY 09/21/16 Pregabalin [Lyrica] 300 cap PO BID 09/21/16 Sertraline [Zoloft*] 1 tab PO DAILY 09/21/16 Insulin 70/30 NPH/Reg Human [Novolin 70/30*] 0 unit SQ SEECOM 02/03/17 Montelukast [Singulair*] 1 tab PO BEDTIME 10/21/17 Pravastatin Sodium 40 mg PO BEDTIME 10/21/17 Albuterol Sulfate [Proventil Hfa] 2 inhaler IH QID PRN 11/22/17 Loperamide [Imodium*] 2 mg PO TID PRN 06/19/18 Albuterol Neb [Proventil 0.083% Neb Soln] 2.5 mg NEB QID 04/17/19 Arginine/Ascorbate Sod/Adrianne AC [Arginaid Powder] 1 packet PO DAILY 04/17/19 Ascorbic Acid [Vitamin C] 500 mg PO BID 04/17/19 Furosemide [Lasix] 20 mg PO DAILY 04/17/19 [place]-3/Dha/Epa/Fish Oil [Fish Oil 1,000 mg Softgel] 1 cap PO DAILY 04/17/19 Umeclidinium Brm/Vilanterol Tr [Anoro Ellipta 62.5-25 Mcg INH] 1 puff IN DAILY 04/17/19 Mupirocin Oint [Bactroban 2% Ointment*] 1 appl TOP BID #1 tube 04/22/19 levoFLOXacin [Levaquin*] 500 mg PO DAILY #10 tab 04/22/19 predniSONE [Deltasone] 10 mg PO BID #10 tab 04/22/19 - Past Medical/Surgical History Diabetic: Yes -: Neuropathy -: Diabetes mellitus type 1 insulin-dependent -: A-Fib not on chronic anti coagulation therapy -: COPD, severe, 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 She also has a common-law partner. She does not work. Patient is DNR. - Family History Father -: Heart disease, Lung disease Mother -: Lung disease, Diabetes - Social History Smoking Status: Former smoker Alcohol use: No CD- Drugs: No Caffeine use: Yes Review of Systems General: Weakness, Malaise, As per HPI Eyes: Unremarkable ENT: Nose Congestion, As per HPI Respiratory: Cough, Shortness of Breath, SOB with Excertion, Sputum, As per HPI Cardiovascular: Paroxysmal Noc. Dyspnea Gastrointestinal: Unremarkable Genitourinary: Unremarkable Musculoskeletal: Unremarkable Integumentary: Unremarkable Neurological: Weakness Lymphatics: Unremarkable Physical Examination - Physical Exam General: Alert, Oriented x3, Cooperative, Mild distress HEENT: Atraumatic, Normocephalic, PERRLA, Other (Increased nasal drainage) Neck: Supple, No Thyromegaly Respiratory: Crackles/rales (Bilateral), Expiratory wheezes (Bilateral), Inspiratory wheezes (Bilateral) Cardiovascular: Normal pulses, Regular rate/rhythm Gastrointestinal: Normal bowel sounds, Soft and benign, Non-distended, No tenderness, No masses, No rebound, No guarding Musculoskeletal: No erythema, No tenderness, No warmth Integumentary: No tenderness/swelling, No erythema, No warmth, No cyanosis Neurological: Normal speech, Normal strength at 5/5 x4 extr, Normal tone, Normal affect - Studies Laboratory Data (last 24 hrs) 04/23/19 19:45: Sodium 135 L, Potassium 5.2 H, BUN 33 H, Creatinine 1.17, Glucose 338 H 04/23/19 19:45: WBC 13.5 H D, Hgb 12.6, Hct 39.0, Plt Count 279 D Assessment and Plan - Plan Impression: Acute on chronic respiratory failure secondary to left lower lobe pneumonia, right lower lobe atelectasis and COPD exacerbation on chronic oxygen Acute renal insufficiency likely dehydration Chronic diastolic CHF Hypertension Diabetes mellitus type 2, insulin dependent Hemoptysis with noted recent hilar adenopathy on CT scan suspect underlying lung cancer Dysphagia likely related to above GERD Depression with anxiety Hyperlipidemia Plan: Acute on chronic respiratory failure secondary to left lower lobe pneumonia, right lower lobe atelectasis and COPD exacerbation on chronic oxygen: Patient will be admitted for further evaluation and treatment. Patient on 4 L per nasal cannula. Will wean off oxygen to maintain sats above 90%. Will continue with Levaquin. Will start prednisone. Will continue with COPD medication. Will continue to monitor closely. Will provide medication for cough and congestion. Will obtain urine cultures. Pulmonology consulted to further evaluate and treat. Family desires skilled placement for the patient at discharge. Need to consider inpatient bronchoscopy while in the hospital to evaluate hilar adenopathy suspicious for lung cancer. Patient has not taking aspirin or Plavix since Sunday. Will start DVT prophylaxis-Lovenox. Anticipate discharge to skilled placement facility with clinical improvement in the next 3-5 days. Daytime hospitalist team will continue management and care. Acute renal insufficiency likely dehydration: Will start low-dose IV fluids. Will discontinue after 1 L given. Chronic diastolic CHF: Will continue with Lasix 20 mg daily. Will monitor and adjust appropriately. Hypertension: Restart home medication lisinopril 10 mg daily. Will monitor and address appropriately. Diabetes mellitus type 2, insulin dependent: Will start basal insulin Lantus 15 units subcu daily. Will continue with Accu-Cheks and sliding scale. Will monitor and adjust appropriately. Hemoptysis with noted recent hilar adenopathy on CT scan suspect underlying lung cancer: Will obtain sputum culture result. Need to consider inpatient bronchoscopy to further evaluate hilar adenopathy suspicious for cancer during this hospitalization. Pulmonology will be consulted. Last use of aspirin and Plavix was Sunday. Will continue to hold aspirin and Plavix. Dysphagia likely related to above: Will need to assess swallow evaluation. CT neck obtain. Patient may require speech evaluation. GERD: Will start Pepcid. Depression with anxiety: Continue with home medication including Depakote. Patient takes Zoloft will need to obtain and restart home medication. Hyperlipidemia: Continue with home medication pravastatin 40 mg daily Discharge Plan: Other (Skilled placement facility) Plan to discharge in: Greater than 2 days - Advance Directives Does patient have a Living Will: Yes Does patient have a Durable POA for Healthcare: Yes - Code Status/Comfort Care Code Status Assessed: Yes (Patient is full code at this time) Time Spent Managing Pts Care (In Minutes): 55
[2019-04-24] MEDS ORDERED: ONDANSETRON 4 MG/2 ML VIAL IV PRN (00:07)
[2019-04-24] MEDS ORDERED: GLUCAGON 1 MG/VIAL IM PRN (00:07)
[2019-04-24] MEDS ORDERED: D50W 25 GM/50 ML SYRINGE IV PRN (00:07)
[2019-04-24] MEDS ORDERED: ACETAMINOPHEN 325 MG TABLET ONE (00:21)
[2019-04-24] MEDS ORDERED: CIPROFLOXACIN 400mg IV 400 MG/200 ML BAG IV ONE (00:21)
[2019-04-24] MEDS: INSULIN -REGULAR HUMAN 50 UNIT/0.5 ML ML SQ SCH ×5 (00:43→21:51)
[2019-04-24] MEDS: INSULIN GLARGINE 100 UNITS/ML SQ SCH ×2 (00:43→21:51)
[2019-04-24] MEDS: NA CHLORIDE 0.9% 1,000 ML IV SCH ×3 (00:44→22:42)
[2019-04-24 06:19] LABS: Absolute Lymphocytes (CBC) 2.8 K/uL (0.7-4.9); Basophils % 0.3 % (0-1.3); Hematocrit 33.4 % (36.0-45.0); Lymphocytes % 27.6 % (15.3-44.8); MPV 8.9 fL (7.6-11.3); RBC Red Blood Cell Count 4.18 M/uL (3.86-4.86)
[2019-04-24 06:42] LABS: Magnesium 2.1 mg/dL (1.8-2.4); Potassium 4.1 mmol/L (3.5-5.1)
[2019-04-24] MEDS: IPRATROPIUM BROM 0.5MG/2.5ML NEB PRN ×3 (08:10→19:30)
[2019-04-24] MEDS: ARFORMOTEROL TARTRATE 15 MCG/2 ML VIAL.NEB NEB SCH ×2 (08:10→19:30)
[2019-04-24] MEDS: FAMOTIDINE 20 MG TAB PO SCH ×2 (08:50→21:48)
[2019-04-24] MEDS: FUROSEMIDE 20 MG TABLET PO SCH (08:50)
[2019-04-24] MEDS: PREGABALIN 150 MG CAP PO SCH ×2 (08:50→21:50)
[2019-04-24] MEDS: GUAIFENESIN 600 MG SA TAB PO SCH ×2 (08:51→21:48)
[2019-04-24] MEDS: predniSONE 20 MG TAB PO SCH ×2 (08:51→21:48)
[2019-04-24] MEDS: LISINOPRIL 10 MG TAB PO SCH (08:51)
[2019-04-24] MEDS: ACETAMINOPHEN 500 MG TAB PO PRN ×2 (08:51→16:21)
[2019-04-24] MEDS: levoFLOXacin 500 MG TAB PO SCH (08:51)
[2019-04-24] MEDS: DIVALPROEX ER 250 MG TAB PO SCH ×2 (08:51→21:49)
[2019-04-24] MEDS: ENOXAPARIN 40 MG/0.4 ML SQ SCH (08:54)
--- NOTE | 2019-04-24 10:21 | RAD REPORT ---
EXAM DESCRIPTION: Jaime Pa And Lat (2 Views)04/24/2019 9:58 am CLINICAL HISTORY: Cough COMPARISON: April 23, 2019 FINDINGS: Partial resolution in the right basilar atelectasis Mild additional bilateral pulmonary opacities consistent with pneumonia Right infrahilar opacity stable Heart is normal size
--- NOTE | 2019-04-24 11:41 | RAD REPORT ---
EXAM DESCRIPTION: CT - Soft Tissue Neck W/Contr - 04/24/2019 5:42 am CLINICAL HISTORY: 63 years Female difficulty swallowing, recent diagnosis of lung cancer COMPARISON: None. TECHNIQUE: Contiguous axial images obtained through the neck following IV contrast. Reformatted imag es obtained. This exam was performed according to our department optimization program which includes automated exp osure control, adjustment of the mA and/or kv according to patient size and/or use of iterative recon struction technique. FINDINGS: The visualized intracranial structures and post septal orbits appear grossly unremarkable. The parotid glands, submandibular glands and thyroid gland appear unremarkable. 2 mm nodular lesion in the right upper lung. The pharynx and larynx appear unremarkable. Scattered lymph nodes in the neck likely reactive. There is fluid in the left sphenoid sinus. The left mastoid bone is poorly pneumatized. Mild degenerative changes in the cervical spine. There is dental disease involving the right mandibular molar tooth. IMPRESSION: The pharynx and larynx appear unremarkable. 2 mm nodular lesion in the right upper lung. 12 month follow-up could be obtained if there is concern for metastatic disease. Dental disease. Left sphenoid sinusitis. Electronically signed by: Preston Corea MD 04/23/2019 9:24 PM CDT Due to temporary technical issues with the PACS/Fluency reporting system, reports are being signed by the in house radiologist as a courtesy to ensure prompt reporting. The interpreting radiologist is f ully responsible for the content of the report.
[2019-04-24] MEDS: ALBUTEROL 2.5 MG/3 ML NEB SOL NEB PRN ×2 (13:30→19:30)
--- NOTE | 2019-04-24 15:52 | RAD REPORT ---
EXAM DESCRIPTION: RAD - Barium Swallow Modified - 04/24/2019 3:47 pm CLINICAL HISTORY: Dysphagia COMPARISON: None. TECHNIQUE: The patient was given liquid, semi-solid and solid forms of barium. Lateral view fluorosc opic imaging was performed in conjunction with speech pathology service. FINDINGS: Cineloop acquisitions: 16 Fluoro time: 2 minutes 18 seconds Laryngeal penetration: cleared with thin. Aspiration: ineffective cough with honey and nectar Pharyngeal residue: trace with nectar in pyriform Cricopharyngeus prominence, 1 sec swallow delay. IMPRESSION: Modified barium swallow as summarized above and fully detailed on speech pathology repor roseann
[2019-04-24] MEDS: BENZONATATE 100 MG CAP PO PRN (16:21)
--- NOTE | 2019-04-24 16:30 | EKG ---
Test Date: 2019-04-23 Test Time: 19:58:27 Medical Assistant Per Diem: YUDY MEASUREMENT RESULTS: Intervals: Rate: 91 WI: 118 QRSD: 126 QT: 372 QTc: 457 [place]: P: 37 WI: 118 QRS: 76 T: 29 INTERPRETIVE STATEMENTS: Normal sinus rhythm Possible Left atrial enlargement Right bundle branch block Abnormal ECG Compared to ECG 04/17/2019 10:37:58 No significant changes Electronically Signed On 04-24-19 16:26:26 CDT by Víctor Kurtz
--- NOTE | 2019-04-24 17:00 | PN ---
Date of Progress Note: 04/24/2019 Patient is seen and examined. Chart reviewed and case discussed with RN and Dr. Chau. Family wanting patient to go to [facility] facility as the patient does report some generalized weakness. The patient states her breathing is better. Medications: List reviewed. Physical Examination: Vital Signs: Temperature 97.8, heart rate 71, blood pressure 128/60, respirations 18, O2 92% on 3 L via nasal cannula. General: Awake, alert, oriented x3. No acute distress. CV: S1, S2. Peripheral pulses present. Respiratory: Diminished breath sounds. No wheezing or rales present. Gastrointestinal: Abdomen is soft, nontender, nondistended. Positive bowel sounds. Extremities: No clubbing, cyanosis, or edema. Neuro: Cranial nerves 2 through 12 intact grossly. No focal neurological deficits. Speech is normal. Skin: No rashes. Normal skin turgor. Laboratory Data: Sodium 138, potassium 4.1, chloride 105, CO2 26, BUN 28, creatinine 1, glucose 242, calcium 8.2, magnesium 2.1. WBC 10.3, H and H 11 and 33.4, platelets 198, neutrophils 64%. Blood cultures and wound cultures are pending. Chest x-ray shows partial resolution of the right basilar atelectasis, mild, additional pulmonary opacities consistent with pneumonia, right infrahilar opacity, stable. Heart is normal size. Assessment And Plan: A 63-year-old female with: 1. Kiofl-bh-pkmpakz respiratory failure secondary to left lower lobe pneumonia , right lower lobe atelectasis and chronic obstructive pulmonary disease exacerbation. We will continue with supplemental oxygenation. Patient currently on 4L. requiring more than her usual of 3L. Continue with treatment for pneumonia. 2. Left lower lobe pneumonia and right lower lobe atelectasis. Failed out patient treatment. Switch to IV antibiotics. Appreciate Dr. Chau's input. 3. Hemoptysis with recent hilar adenopathy, possibly malignant. The patient needs a bronchoscopy, however, needs to be off Plavix for 5 days. Plavix has been discontinued since Sunday. 4. Diabetes mellitus type 2, insulin requiring with hyperglycemia. We will continue with sliding scale insulin and monitor Accu-Cheks. 5. Essential hypertension, stable. 6. Chronic diastolic heart failure. We will continue to monitor I's and O's. Fluid restriction. 7. Hyperkalemia. We will continue to monitor and give Kayexalate for correction if needed. 8. Dysphagia. 9. Gastroesophageal reflux disease without esophagitis, continue Pepcid. 10. Depression with anxiety. Continue Zoloft. 11. Mixed hyperlipidemia. Continue statin. 12. Generalized weakness. PT consult. Plan: DVT prophylaxis addressed. Patient needs continued monitoring in the hospital setting for worsening PNA, respiratory status and weakness. The patient will need to be referred to [facility] facility. Continue with PT here in the hospital. Bronchoscopy once Plavix has been off for 5 days. /MODAshley Voice ID: [id number] Report ID: [id number] RAH
[2019-04-24] MEDS ORDERED: INSULIN -REGULAR HUMAN 50 UNIT/0.5 ML ML SQ ONE (18:15)
[2019-04-24] MEDS ORDERED: ATORVASTATIN 10 MG TAB PO SCH (21:00)
[2019-04-24] MEDS ORDERED: MONTELUKAST 10 MG TAB PO SCH (21:00)
[2019-04-24] MEDS: MUPIROCIN 2% OINT 22GM TUBE TOP SCH (21:48)
[2019-04-25] MEDS: ALPRAZOLAM 0.25 MG TABLET PO PRN (00:16)
[2019-04-25 06:37] LABS: Absolute Lymphocytes (CBC) 1.5 K/uL (0.7-4.9); Basophils % 0.1 % (0-1.3); Hematocrit 34.4 % (36.0-45.0); RBC Red Blood Cell Count 4.27 M/uL (3.86-4.86)
[2019-04-25 06:40] LABS: Magnesium 2.2 mg/dL (1.8-2.4); Potassium 4.9 mmol/L (3.5-5.1)
[2019-04-25] MEDS: IPRATROPIUM BROM 0.5MG/2.5ML NEB PRN ×2 (07:40→13:36)
[2019-04-25] MEDS: ALBUTEROL 2.5 MG/3 ML NEB SOL NEB PRN ×2 (07:40→13:36)
[2019-04-25] MEDS: ARFORMOTEROL TARTRATE 15 MCG/2 ML VIAL.NEB NEB SCH ×2 (07:40→20:00)
[2019-04-25] MEDS: FUROSEMIDE 20 MG TABLET PO SCH (09:20)
[2019-04-25] MEDS: LISINOPRIL 10 MG TAB PO SCH (09:20)
[2019-04-25] MEDS: LACTOBACILLUS/ACIDOPHILUS TAB PO SCH ×3 (09:21→22:07)
[2019-04-25] MEDS: DIVALPROEX ER 250 MG TAB PO SCH ×2 (09:21→22:07)
[2019-04-25] MEDS: PREGABALIN 150 MG CAP PO SCH ×2 (09:21→22:06)
[2019-04-25] MEDS: GUAIFENESIN 600 MG SA TAB PO SCH ×2 (09:21→22:07)
[2019-04-25] MEDS: SERTRALINE HCL 100 MG TAB PO SCH (09:21)
[2019-04-25] MEDS: levoFLOXacin 500 MG TAB PO SCH (09:21)
[2019-04-25] MEDS: FAMOTIDINE 20 MG TAB PO SCH (09:21)
[2019-04-25] MEDS: INSULIN -REGULAR HUMAN 50 UNIT/0.5 ML ML SQ SCH ×4 (09:21→22:06)
[2019-04-25] MEDS: ENOXAPARIN 40 MG/0.4 ML SQ SCH (09:22)
[2019-04-25] MEDS: predniSONE 20 MG TAB PO SCH (09:22)
[2019-04-25] MEDS: MUPIROCIN 2% OINT 22GM TUBE TOP SCH ×2 (09:22→23:17)
--- NOTE | 2019-04-25 10:35 | PN ---
Date of Progress Note: 04/25/2019 Subjective: Patient is seen and examined. Chart reviewed and case discussed with RN. Patient states she is doing somewhat better, still having some shortness of breath requiring supplemental oxygenation. Medications: List reviewed. Physical Examination: Vital Signs: Temperature 97.6, heart rate 65, blood pressure 99/50, respirations 18, O2 at 97% on 2 L via nasal cannula. General: Awake, alert, oriented x3. Elderly female, in some mild respiratory distress. CV: S1, S2. Regular rate and rhythm. Peripheral pulses present. Respiratory: Diminished breath sounds. Some rales heard. No wheezing or stridor. Gastrointestinal: Abdomen is soft, nontender, nondistended. Positive bowel sounds. Extremities: No clubbing, cyanosis, or edema. Neurologic: Nonfocal. Laboratory Data: Sodium 137, potassium 4.9, chloride 105, CO2 of 24, BUN 25, creatinine 0.89, glucose 263, calcium 8.2, magnesium 2.2. WBC 9.1, H and H of 11.2 and 34.4, platelets 189, neutrophils 79%. Blood cultures, no growth to date. Wound culture from the left foot pending. Sputum culture also pending. Previous wound cultures and sputum cultures from visit growing out Enterobacter cloacae from the first and Morganella and MRSA also from the first and the leg wound. Assessment And Plan: A 63-year-old female with: 1. Acute on chronic respiratory failure secondary to left lower lobe pneumonia and right lower lobe atelectasis and chronic obstructive pulmonary disease exacerbation. Continue supplemental oxygenation. Patient was requiring 4 L, which is more than her usual. At home, she is usually on 2L sometimes on 3 L. We will continue antibiotics for pneumonia. 2. Left lower lobe pneumonia and right lower lobe atelectasis, failed outpatient treatment. We will switch to IV antibiotics. Appreciate Pulmonology input. Continue antibiotics and follow up on culture results. Sputum cultures from previous visit growing out Enterobacter cloacae. 3. Hemoptysis with recent hilar adenopathy, possible malignancy. Patient will need bronchoscopy after she has been off Plavix for 5 days. We will discuss further with Pulmonology. 4. Diabetes mellitus type 2, insulin requiring, with hyperglycemia. We will adjust sliding scale insulin, monitor Accu-Cheks, add long-acting insulin. 5. Acute chronic obstructive pulmonary disease exacerbation. We will continue with steroids and IV steroids and nebulizer treatments. 6. Essential hypertension, stable. 7. Chronic diastolic heart failure. Continue fluid restriction and monitor I' s and O's. Resume home medications. 8. Hyperkalemia, corrected. 9. Dysphagia. 10. Gastroesophageal reflux disease without esophagitis. Continue Pepcid. 11. Depression with anxiety. Continue Zoloft. 12. Mixed hyperlipidemia. Continue statin. Stable. 13. Generalized weakness. PT consultation. 14. Deep venous thrombosis prophylaxis with Lovenox. Patient's respiratory status is improving now on 2 L. We will need to continue to monitor in the hospital setting and wean down. Anticipate bronchoscopy in a.m. Patient's blood sugars are not well controlled. We will need to adjust insulin to prevent diabetic ketoacidosis. /LUIS Voice ID: [id number] Report ID: [id number] MTDD
--- NOTE | 2019-04-25 12:04 | P.PN ---
Subjective Date of Service: 04/25/19 Primary Care Provider: Dr. Whalen; Pulmonary-Dr. Chau Chief Complaint: Increasing cough, congestion and shortness of breath Patient is 63 years of age was just recently discharged from the hospital and continues to complain of cough congestion hemoptysis of weakness unable to ambulate for a long discussion with the daughter she decided to bring and bring her back to the hospital no change in her symptoms is discharge Review of Systems General: Weakness Respiratory: Cough, Shortness of Breath, Hemoptysis Physical Examination - Vital Signs Temperature: 97.3 F Blood Pressure: 130/60 Pulse: 65 Respirations: 18 Pulse Ox (%): 98 - Physical Exam General: Alert, In no apparent distress, Oriented x3 Respiratory: Expiratory wheezes Cardiovascular: No edema, Regular rate/rhythm, Normal S1 S2 Assessment & Plan - Problems (Diagnosis) (1) Lung cancer Current Visit: No Status: Acute Plan: Patient is 63 years of age admitted with weakness cough congestion hemoptysis she does have a right hilar mass highly suspicious for lung cancer. Will schedule her for an inpatient bronchoscopy on Sunday she has been off Plavix f for 7 days multiple organisms isolated from the sputum and from the wound which is sensitive to levofloxacin patient is mildly anemic patient's overall prognosis is very poor she has advanced stage lung cancer indications all adjusted be discharged to a custodial on Sunday
[2019-04-25] MEDS ORDERED: TRAMADOL HCL 50 MG TAB PO SCH (15:00)
[2019-04-25] MEDS: BENZONATATE 100 MG CAP PO PRN (15:08)
[2019-04-25] MEDS: TRAMADOL HCL 50 MG TAB PO PRN (15:13)
[2019-04-25] MEDS ORDERED: INSULIN GLARGINE 100 UNITS/ML SQ SCH (21:00)
[2019-04-25] MEDS: ACETAMINOPHEN 500 MG TAB PO PRN (22:07)
[2019-04-25] MEDS: predniSONE 10 MG TAB PO SCH (22:08)
[2019-04-26] MEDS: TRAMADOL HCL 50 MG TAB PO PRN ×2 (03:59→14:37)
[2019-04-26 05:50] LABS: Urine Appearance CLEAR; Urine Bilirubin NEGATIVE (NEG); Urine Blood NEGATIVE (NEG); Urine Color YELLOW; Urine Glucose TRACE (NEG); Urine Microscopic Reflex ORDER UMIC; Urine Protein NEGATIVE (NEG); Urine Specific Gravity 1.015 (1.005-1.030); Urine Urobilinogen 0.2 mg/dL (0.2-1.0)
[2019-04-26 05:51] LABS: Urine Bacteria <20 /HPF (<20); Urine RBC NONE SEEN /HPF (NONE SEEN)
[2019-04-26 05:52] LABS: Urine Culture Reflex Order REFLEXED
[2019-04-26 06:13] LABS: Absolute Lymphocytes (CBC) 2.3 K/uL (0.7-4.9); Basophils % 0.3 % (0-1.3); Hematocrit 34.4 % (36.0-45.0); Lymphocytes % 21.3 % (15.3-44.8); MPV 8.8 fL (7.6-11.3); RBC Red Blood Cell Count 4.35 M/uL (3.86-4.86)
[2019-04-26] MEDS: IPRATROPIUM BROM 0.5MG/2.5ML NEB PRN ×2 (08:20→14:40)
[2019-04-26] MEDS: ARFORMOTEROL TARTRATE 15 MCG/2 ML VIAL.NEB NEB SCH ×2 (08:20→20:35)
[2019-04-26] MEDS: ALBUTEROL 2.5 MG/3 ML NEB SOL NEB PRN ×2 (08:20→14:40)
[2019-04-26] MEDS: MUPIROCIN 2% OINT 22GM TUBE TOP SCH ×2 (08:34→21:52)
[2019-04-26] MEDS: INSULIN -REGULAR HUMAN 50 UNIT/0.5 ML ML SQ SCH ×4 (08:34→21:50)
[2019-04-26] MEDS: predniSONE 10 MG TAB PO SCH ×2 (08:35→21:51)
[2019-04-26] MEDS: SERTRALINE HCL 100 MG TAB PO SCH (08:35)
[2019-04-26] MEDS: PREGABALIN 150 MG CAP PO SCH ×2 (08:35→21:51)
[2019-04-26] MEDS: DIVALPROEX ER 250 MG TAB PO SCH ×2 (08:35→21:51)
[2019-04-26] MEDS: ENOXAPARIN 40 MG/0.4 ML SQ SCH (08:35)
[2019-04-26] MEDS: GUAIFENESIN 600 MG SA TAB PO SCH ×2 (08:35→21:51)
[2019-04-26] MEDS: LACTOBACILLUS/ACIDOPHILUS TAB PO SCH ×3 (08:35→21:51)
[2019-04-26] MEDS: Levofloxacin500mg IV 500 MG/100 ML BAG IV SCH (08:36)
[2019-04-26] MEDS: BENZONATATE 100 MG CAP PO PRN (14:37)
--- NOTE | 2019-04-26 17:28 | PN ---
Date of Progress Note: 04/26/2019 Subjective: Patient is seen and examined. Chart reviewed and case discussed with RN and Dr. Manav doyle. Patient is doing better. No adverse events overnight. Medications: List reviewed. Physical Examination: Vital Signs: Temperature 97.7, heart rate 64, blood pressure 123/56, respirations 20, O2 at 96% on 2 -1/2 L. General: Awake, alert, oriented x3. No acute distress. CV: S1, S2. No murmurs. Peripheral pulses present. Respiratory: Diminished breath sounds. No wheezing or stridor. No use of accessory muscles. Gastrointestinal: Abdomen is soft, nontender, nondistended. Positive bowel sounds. Extremities: No clubbing, cyanosis, or edema. Neurologic: Nonfocal. Laboratory Data: Sodium 134, potassium 5, chloride 102, CO2 of 27, BUN 26, creatinine 0.94, glucose 297, calcium 8.3, magnesium 2. WBC 10.8, H and H of 11.7 and 34.4, platelets 202, neutrophils 74%. Blood cultures, no growth to date. Sputum cultures growing out yeast. Previous sputum cultures grow n out Enterobacter, sensitive to Levaquin. Wound cultures from the leg from previous admission growi ng out Morganella and MRSA. C diff assay is negative. Assessment And Plan: A 63-year-old female with: 1.Acute on chronic respiratory failure secondary to left lower lobe pneumonia and right lower lobe a telectasis, chronic obstructive pulmonary disease exacerbation. We will continue with supplemental o xygenation. Patient currently on 2-1/2 L supplemental O2. Continue antibiotics. Cultures are pendi ng. 2.Left lower lobe pneumonia, failed outpatient treatment. Continue with antibiotics. Cultures are negative to date. Previous cultures growing out Enterobacter cloacae. Current cultures from the spu maureen growing out yeast. 3.Hemoptysis with recent hilar adenopathy, possible malignancy. Plan is for bronchoscopy once the p atient is off Plavix for 5 days. Appreciate Pulmonology input. 4.Diabetes mellitus type 2 insulin requiring with hyperglycemia. Continue with sliding scale insuli n and monitor Accu-Cheks. 5.Acute chronic obstructive pulmonary disease exacerbation. We will continue with steroids and nebu lizer treatments. Wean off steroids as tolerated. 6.Essential hypertension, stable. 7.Chronic diastolic heart failure. We will continue fluid restriction. Monitor I's and O's. Resum e home medications. 8.Hyperkalemia, corrected. 9.Dysphagia. Patient will need outpatient ENT followup. 10.Gastroesophageal reflux disease without esophagitis. Continue Pepcid. 11.Depression with anxiety. Continue Zoloft. 12.Mixed hyperlipidemia, stable. Continue statin. 13.Generalized weakness. Continue with PT. 14.Deep venous thrombosis prophylaxis with Lovenox. Bronchoscopy once off Plavix for 5 days. Adjust insulin dose as necessary. Transfer to nursing [facility] once accepted. /LUIS Voice ID: [id number] Report ID: [id number]
[2019-04-26] MEDS: INSULIN GLARGINE 100 UNITS/ML SQ SCH (21:50)
[2019-04-27] MEDS: IPRATROPIUM BROM 0.5MG/2.5ML NEB PRN ×2 (07:53→13:37)
[2019-04-27] MEDS: ALBUTEROL 2.5 MG/3 ML NEB SOL NEB PRN ×2 (07:53→13:37)
[2019-04-27] MEDS: ARFORMOTEROL TARTRATE 15 MCG/2 ML VIAL.NEB NEB SCH ×2 (07:53→20:00)
[2019-04-27] MEDS: Levofloxacin500mg IV 500 MG/100 ML BAG IV SCH (09:00)
[2019-04-27] MEDS: ENOXAPARIN 40 MG/0.4 ML SQ SCH (09:00)
[2019-04-27] MEDS: INSULIN -REGULAR HUMAN 50 UNIT/0.5 ML ML SQ SCH ×4 (09:05→21:50)
[2019-04-27] MEDS: SERTRALINE HCL 100 MG TAB PO SCH (09:06)
[2019-04-27] MEDS: PREGABALIN 150 MG CAP PO SCH ×2 (09:06→21:51)
[2019-04-27] MEDS: LACTOBACILLUS/ACIDOPHILUS TAB PO SCH ×3 (09:06→21:50)
[2019-04-27] MEDS: GUAIFENESIN 600 MG SA TAB PO SCH ×2 (09:06→21:50)
[2019-04-27] MEDS: predniSONE 10 MG TAB PO SCH ×2 (09:06→21:51)
[2019-04-27] MEDS: DIVALPROEX ER 250 MG TAB PO SCH ×2 (09:06→21:50)
[2019-04-27 10:03] LABS: ALT/SGPT 16 U/L (12-78); AST/SGOT 4 U/L (15-37); Albumin 2.9 g/dL (3.4-5.0); Alkaline Phosphatase 66 U/L (45-117); Bilirubin Direct < 0.1 mg/dL (0-0.2); Bilirubin Total 0.2 mg/dL (0.2-1.0); Protein, Total 7.1 g/dL (6.4-8.2)
[2019-04-27] MEDS: VANCOMYCIN 1.25 GM in NA CHLORIDE 0.9% 250 ML IVPB SCH (12:26)
--- NOTE | 2019-04-27 14:23 | PN ---
Date of Progress Note: 04/27/2019 Subjective: Patient is seen and examined. Chart was reviewed and case was discussed with RN. Mega robles denies any specific complaints. States her breathing is better. Scheduled for bronchoscopy in a. m. Medications: List was reviewed. Physical Examination: Vital Signs: Temperature 97.5, heart rate 65, blood pressure 109/53, respirations 17, O2 95% on 2 L via nasal cannula. General: Awake, alert, oriented x3. No acute distress. CV: S1, S2. Peripheral pulses present. No murmurs. Respiratory: Diminished breath sounds at the bases. No wheezing or stridor. Gastrointestinal: Abdomen is soft, nontender, nondistended. Positive bowel sounds. Extremities: No clubbing, cyanosis, or edema. Neurologic: Nonfocal. Laboratory Data: Pending. Wound culture from the left foot is now growing Staph auricularis with re sistance to oxacillin, sensitivity to vancomycin. Previous cultures from last hospitalization are gr owing out morganella and MRSA, which was sensitive to Levaquin. Sputum cultures are growing out ente robacter, also sensitive to Levaquin. Assessment And Plan: A 63-year-old female with: 1.Xxhis-qh-skrzqii respiratory failure secondary to left lower lobe pneumonia and chronic obstructiv e pulmonary disease. Continue with supplemental oxygenation. 2.Left lower lobe pneumonia, failed outpatient treatment. Continue IV Levaquin. We will add vancom ycin. Previous sputum culture are growing out Enterobacter cloacae, currently yeast. 3.Hemoptysis with recent hilar adenopathy, possible malignancy. Bronchoscopy is scheduled for a.m. Appreciate Dr. Chau's input. 4.Leg wound, growing out Staphylococcus auricularis. Previous admission, the wound cultures were gr owing morganella and MRSA. We will add vancomycin, continue Levaquin due to morganella and enterobac ter. 5.Diabetes mellitus type 2, insulin requiring with hyperglycemia. 6.Acute chronic obstructive pulmonary disease exacerbation, improving. Continue with steroids, wean as tolerated, and continue with albuterol breathing treatments. 7.Essential hypertension, stable. 8.Chronic diastolic heart failure. Monitor I's and O's. Continue CHF guidelines. Continue fluid r estriction. 9.Hyperkalemia, corrected. 10.Dysphagia, on a modified diet. We will need ENT followup as outpatient. 11.Gastroesophageal reflux disease without esophagitis. Continue Pepcid. 12.Depression with anxiety. Zoloft. Stable. 13.Mixed hyperlipidemia, stable. We will continue statin. 14.Generalized weakness. We will continue with PT. 15.Deep venous thrombosis prophylaxis with Lovenox. 16.Plan: Discharge to nursing facility after bronchoscopy. CHEVY Voice ID: [id number] Report ID: [id number]
[2019-04-27] MEDS: MUPIROCIN 2% OINT 22GM TUBE TOP SCH ×2 (16:16→21:52)
[2019-04-27] MEDS: BENZONATATE 100 MG CAP PO PRN (17:39)
[2019-04-27] MEDS: INSULIN GLARGINE 100 UNITS/ML SQ SCH (21:50)
[2019-04-28 05:29] VITALS: BMI 28.3
[2019-04-28 06:20] LABS: Albumin 3.1 g/dL (3.4-5.0); Bilirubin Total 0.2 mg/dL (0.2-1.0); Potassium 4.4 mmol/L (3.5-5.1); Protein, Total 7.4 g/dL (6.4-8.2)
[2019-04-28 06:24] LABS: Absolute Lymphocytes (CBC) 2.2 K/uL (0.7-4.9); Basophils % 0.2 % (0-1.3); Hematocrit 37.8 % (36.0-45.0); Lymphocytes % 20.4 % (15.3-44.8); RBC Red Blood Cell Count 4.77 M/uL (3.86-4.86)
[2019-04-28] MEDS: INSULIN -REGULAR HUMAN 50 UNIT/0.5 ML ML SQ SCH ×4 (07:30→21:00)
[2019-04-28] MEDS: ARFORMOTEROL TARTRATE 15 MCG/2 ML VIAL.NEB NEB SCH ×2 (07:45→20:20)
[2019-04-28] MEDS: IPRATROPIUM BROM 0.5MG/2.5ML NEB PRN (07:45)
[2019-04-28] MEDS: LACTOBACILLUS/ACIDOPHILUS TAB PO SCH ×3 (09:00→21:01)
[2019-04-28] MEDS: Levofloxacin500mg IV 500 MG/100 ML BAG IV SCH (09:19)
[2019-04-28] MEDS ORDERED: Phenylephrine HCl 10 MG/ML 1 ML VIAL ONE (10:17)
[2019-04-28] MEDS ORDERED: LIDOCAINE 4% TOP SOLUTION ONE (10:18)
[2019-04-28] MEDS ORDERED: GLYCOPYRROLATE 0.2 MG/ML SYR ONE (10:37)
[2019-04-28] MEDS ORDERED: LIDOCAINE 1% MPF 30 ML VIAL ONE (10:37)
[2019-04-28] MEDS: VANCOMYCIN 1.25 GM in NA CHLORIDE 0.9% 250 ML IVPB SCH (10:50)
[2019-04-28] MEDS ORDERED: NA CHLORIDE 0.9% 1,000 ML ONE (11:48)
[2019-04-28] MEDS ORDERED: LIDOCAINE VISCOUS 2% SOLN 15 ML UDC ONE (12:01)
[2019-04-28] MEDS ORDERED: FENTANYL CITR 100 MCG/2 ML ONE (12:04)
[2019-04-28] MEDS ORDERED: PROPOFOL 200 MG/20 ML VIAL IV ONE (12:04)
[2019-04-28] MEDS ORDERED: LIDOCAINE 1% MPF 5 ML VIAL ONE (12:04)
--- NOTE | 2019-04-28 12:28 | P.OP ---
Date of Service: 04/28/19 (Bronchoscopy with right middle lobe wire brushing and a BAL) Findings and Operative Technique Patient is 63 years of age admitted with a right hilar mass heavy smoker has a reason for bronchoscopy After obtaining informed consent from the patient she is not min premedicated by anesthesia Findings normal vocal cords normal trachea normal gian normal right and left- sided bronchial anatomy apart from thick mucus secretions chronic bronchitic changes throughout the entire respiratory tract never no mass visible or evidence of any hemoptysis specimens were pro were taken from above patient tolerated the procedure well
--- NOTE | 2019-04-28 12:40 | RAD REPORT ---
EXAM DESCRIPTION: RAD - FLUORO-GUIDE FOR BRONCH UPT1HR - 04/28/2019 12:33 pm FINDINGS: Three portable C-arm views were submitted from a fluoroscopic assisted bronchoscopy. No agrawal spicious or unexpected finding. Fluoro time was 152 seconds
[2019-04-28] MEDS: predniSONE 10 MG TAB PO SCH ×2 (13:39→21:02)
[2019-04-28] MEDS: MUPIROCIN 2% OINT 22GM TUBE TOP SCH ×2 (13:39→21:00)
[2019-04-28] MEDS: GUAIFENESIN 600 MG SA TAB PO SCH ×2 (13:40→21:02)
[2019-04-28] MEDS: DIVALPROEX ER 250 MG TAB PO SCH ×2 (13:40→21:01)
[2019-04-28] MEDS: SERTRALINE HCL 100 MG TAB PO SCH (13:40)
[2019-04-28] MEDS: PREGABALIN 150 MG CAP PO SCH ×2 (13:40→21:00)
--- NOTE | 2019-04-28 14:52 | RAD REPORT ---
EXAM DESCRIPTION: RAD - Chest Single View - 04/28/2019 2:36 pm CLINICAL HISTORY: post bronchoscopy Chest pain. COMPARISON: Chest Pa And Lat (2 Views) dated 04/24/2019; Chest Single View dated 04/23/2019; Chest Singl e View dated 04/17/2019; Chest Pa And Lat (2 Views) dated 12/20/2018 FINDINGS: Portable technique limits examination quality. The lungs are grossly clear. No postprocedure pneumothorax is seen. The heart is mildly enlarged in s ize. IMPRESSION: No evidence of postprocedure pneumothorax.
--- NOTE | 2019-04-28 20:16 | PN ---
Date of Progress Note: 04/28/2019 Subjective: Patient seen and examined. Chart reviewed and case discussed with RN and Dr. Chau. Patient went for a bronchoscopy today. No mass was seen. Cytology specimen has been taking. Medications: List reviewed. Physical Examination: Vital Signs: Temperature 96.9,heart rate 60, blood pressure 130/59, respirations 20, O2 100% on 2 L via nasal cannula. General: Awake, alert, oriented x3. Elderly female, no acute distress. CV: S1, S2. Peripheral pulses present. Respiratory: Diminished breath sounds, improving. No wheezing or stridor. Gastrointestinal: Abdomen is soft, nontender, nondistended. Positive bowel sounds. No guarding or rigidity. Extremities: No clubbing, cyanosis, or edema. Neurologic: Nonfocal. Skin: Patient has a wound on the left foot, bandaged. Laboratory Data: Sodium 138, potassium 4.4, chloride 102, CO2 of 30, BUN 23, creatinine 0.82, glucos e 196, calcium 8.7. WBC 10.8, H and H 12.4 and 37.8, platelets 199, neutrophils 76%. Blood cultures , no growth to date. Wound cultures from the left foot growing Staphylococcus auricularis, methicill in-resistant, sensitive to vancomycin. Acid-fast bacilli pending. Urine culture, mixed yesi. Assessment: 1.Acute on chronic respiratory failure secondary to left lower lobe pneumonia and chronic obstructiv e pulmonary disease. We will continue with supplemental oxygenation, improving. 2.Left lower lobe pneumonia with failed outpatient treatment. We will continue with IV antibiotics. Vancomycin has been added. Sputum cultures growing out Enterobacter from previous visit. 3.Hemoptysis with recent hilar adenopathy, rule out malignancy. Bronchoscopy has been completed. N o mass was found on bronchoscopy. Cytology studies pending. Appreciate Dr. Chau's input. 4.Left leg wound growing out Staphylococcus auricularis. Previous cultures growing on Morganella an d methicillin-resistant Staphylococcus aureus. We will continue vancomycin as new cultures are resis tant to Levaquin. 5.Diabetes mellitus type 2, insulin requiring with hyperglycemia. We will continue sliding scale in sulin. Dose has been adjusted to more aggressive scale. Continue Accu-Cheks. 6.Acute chronic obstructive pulmonary disease exacerbation, improving. We will try to wean off ster oids. We will continue albuterol breathing treatments. 7.Essential hypertension, stable. 8.Chronic diastolic heart failure. Continue with congestive heart failure guidelines. 9.Dysphagia. Continue modified diet. ENT followup as outpatient. 10.Gastroesophageal reflux disease without esophagitis. Continue Pepcid. 11.Depression with anxiety. Continue Zoloft. Stable. 12.Mixed hyperlipidemia, stable. Continue statin. 13.Generalized weakness. Continue with PT. 14.Deep venous thrombosis prophylaxis with Lovenox. We will resume 24 hours postprocedure. Plan: Discharge to nursing facility on IV antibiotics for 2 weeks for leg wound. Patient will need PICC line. /LUIS Voice ID: [id number] Report ID: [id number]
[2019-04-28] MEDS: INSULIN GLARGINE 100 UNITS/ML SQ SCH (21:00)
[2019-04-28] MEDS: TRAMADOL HCL 50 MG TAB PO PRN (21:01)
[2019-04-28] MEDS: ALPRAZOLAM 0.25 MG TABLET PO PRN (21:01)
[2019-04-29 06:36] LABS: Absolute Lymphocytes (CBC) 1.7 K/uL (0.7-4.9); Basophils % 0.2 % (0-1.3); Hematocrit 35.5 % (36.0-45.0); Lymphocytes % 14.9 % (15.3-44.8); MPV 9.2 fL (7.6-11.3); RBC Red Blood Cell Count 4.49 M/uL (3.86-4.86)
[2019-04-29 06:45] LABS: Albumin 2.8 g/dL (3.4-5.0); Bilirubin Total 0.2 mg/dL (0.2-1.0); Potassium 4.5 mmol/L (3.5-5.1); Protein, Total 6.8 g/dL (6.4-8.2)
[2019-04-29] MEDS: INSULIN -REGULAR HUMAN 50 UNIT/0.5 ML ML SQ SCH ×2 (08:12→13:26)
[2019-04-29] MEDS: ENOXAPARIN 40 MG/0.4 ML SQ SCH (08:13)
[2019-04-29] MEDS: PREGABALIN 150 MG CAP PO SCH (08:14)
[2019-04-29] MEDS: LACTOBACILLUS/ACIDOPHILUS TAB PO SCH ×2 (08:14→13:25)
[2019-04-29] MEDS: DIVALPROEX ER 250 MG TAB PO SCH (08:14)
[2019-04-29] MEDS: SERTRALINE HCL 100 MG TAB PO SCH (08:14)
[2019-04-29] MEDS: predniSONE 10 MG TAB PO SCH (08:15)
[2019-04-29] MEDS: GUAIFENESIN 600 MG SA TAB PO SCH (08:15)
[2019-04-29] MEDS: ARFORMOTEROL TARTRATE 15 MCG/2 ML VIAL.NEB NEB SCH (08:35)
[2019-04-29 08:53] VITALS: BP 145/65; TEMP 97.2
[2019-04-29] MEDS: MUPIROCIN 2% OINT 22GM TUBE TOP SCH (09:00)
[2019-04-29] MEDS ORDERED: ASPIRIN 81 MG CHEWABLE TABLET PO SCH (09:00)
[2019-04-29] MEDS ORDERED: CLOPIDOGREL 75 MG TABLET PO SCH (09:00)
[2019-04-29] MEDS: TRAMADOL HCL 50 MG TAB PO PRN (09:27)
--- NOTE | 2019-04-29 09:31 | P.DS ---
Admission Date: 04/23/19 Discharge Date: 04/29/19 Primary Care Provider: Dr. Whalen; Pulmonary-Dr. Chau Disposition: TRANSFER TO SNF - MEDICAL Discharge Condition: GOOD Reason for Admission: Increasing cough, congestion and shortness of breath Consultations: Pulmonary-Dr. Chau Procedures: CT Scan: FINDINGS: The visualized intracranial structures and post septal orbits appear grossly unremarkable. The parotid glands, submandibular glands and thyroid gland appear unremarkable. 2 mm nodular lesion in the right upper lung. The pharynx and larynx appear unremarkable. Scattered lymph nodes in the neck likely reactive. There is fluid in the left sphenoid sinus. The left mastoid bone is poorly pneumatized. Mild degenerative changes in the cervical spine. There is dental disease involving the right mandibular molar tooth. IMPRESSION: The pharynx and larynx appear unremarkable. 2 mm nodular lesion in the right upper lung. 12 month follow-up could be obtained if there is concern for metastatic disease. Dental disease. Left sphenoid sinusitis. CXR: COMPARISON: Chest Pa And Lat (2 Views) dated 04/24/2019; Chest Single View dated 04/23/2019; Chest Single View dated 04/17/2019; Chest Pa And Lat (2 Views) dated 12/20 FINDINGS: Portable technique limits examination quality. The lungs are grossly clear. No postprocedure pneumothorax is seen. The heart is mildly enlarged in size. IMPRESSION: No evidence of postprocedure pneumothorax Bronchoscopy: Bronchoscopy done April 28. No mass identified. Samples obtained for culture and pathology. Medical Problem List: Acute on chronic respiratory failure secondary to left lower lobe pneumonia and COPD exacerbation Hemoptysis with recent CT scan showing hilar adenopathy, status post bronchoscopy Left lower extremity wound, cultures positive for Staphylococcus auricularis requiring IV antibiotic therapy Diabetes mellitus type 2 insulin dependent Chronic diastolic CHF CAD Diabetic neuropathy with chronic pain Dysphagia GERD Depression with anxiety Hyperlipidemia Brief History of Present Illness: 63-year-old female with multiple medical problems including COPD on chronic oxygen, diabetes mellitus type 2 insulin dependent, PVD, chronic diastolic heart failure, hypertension, hyperlipidemia, depression with anxiety, and obesity. Patient was recently admitted and discharged on 04/22/2019 for acute on chronic respiratory failure related to left lower lobe pneumonia and COPD exacerbation. Since being discharge patient has had increase cough, congestion and shortness of breath. She was sent home with antibiotics but she has not started medication. Patient also reported some hemoptysis. Recent CT scan revealed hilar lymphadenopathy. This may be related to underlying lung cancer. Patient was told to hold Plavix and aspirin for 1 week in preparation for outpatient bronchoscopy. In the ER patient was evaluated. Increase cough, congestion noted. Patient required 4 L per nasal cannula. On lab white count 13.5 was noted. This was increased since last discharge. 2 bands noted. Hemoglobin 12.6. Sodium 135, potassium 5.2. BUN of 33, creatinine 1.17 with a GFR 47. Glucose 338. Chest x -ray revealed left lower lobe pneumonia with right lower lobe atelectasis. Due to worsening symptoms patient was admitted for further evaluation and treatment. When I saw the patient ER, increase cough noted. Patient was stable on a nasal cannula. Family desires skilled placement at discharge. Family concerned about possible diagnosis of lung cancer. Patient reports some difficulty eating food due to cough. Hospital Course: Patient presented with acute on chronic respiratory failure. This was secondary to left lower lobe pneumonia and atelectasis. This was also complicated with COPD exacerbation. Patient was admitted and treated. Patient seen by pulmonology. During the course of her stay her condition improved. Patient is on chronic oxygen. At discharge patient without any significant shortness of breath. Patient will continue with oxygen to maintain sats above 90%. At discharge patient will continue with prednisone 10 mg 1 pill twice daily for 5 days then 1 pill once daily for 5 days. Patient will also continue with COPD medication-Anoro 1 puff daily, albuterol 1 unit dose 3 times a day as needed for shortness of breath and Atrovent 1 unit dose 3 times a day as needed for shortness of breath. Patient will also be provided Tessalon Perles 100 mg 3 times a day as needed for cough and Mucinex 600 mg twice daily for congestion. At discharge patient will be transferred to [facility] facility to continue her care. Patient also had hemopytosis. Recent CT scan showed hilar adenopathy. Bronchoscopy was to be arranged as an outpatient. Due to her symptoms, bronchoscopy was done in the hospital. No mass was identified. Analysis was sent for cultures including acid-fast and pathology. Patient will follow up with pulmonology in 1 week to follow up results. Patient has left lower extremity wound. Cultures were obtained. Culture positive for Staphylococcus auricularis. This requires IV antibiotic therapy. PICC line placed. At discharge she will continue with vancomycin IV. She will continue with vancomycin for total of 14 days. Pharmacy to monitor and adjust medication. Further adjustment may also be done by nursing consultant. Continue with current wound care and medication. Patient with diabetes mellitus type 2, insulin-dependent. Patient previously on insulin 70/30. This has been changed to Lantus. At discharge she will continue with Lantus 30 units subcu daily. Recommend to maintain blood sugars less 140 fasting less than 200 after meals. Further adjustment can be done at the skilled facility. Patient with chronic diastolic CHF. Patient will continue with a 1500 cc per day fluid restriction and low-salt diet. Patient will continue with Lasix 20 mg daily as needed for edema. Patient with CAD. At discharge she will continue with aspirin 81 mg daily and Plavix 75 mg daily. Patient with diabetic neuropathy and chronic pain. At discharge she will continue with Lyrica 300 mg twice daily. Patient with depression with anxiety. This has remained stable. At discharge she will continue with Zoloft 100 mg daily and Depakote 250 mg 1 pill twice daily. Further adjustment can be done by her PCP. Patient also had dysphagia. CT neck was done. This improved in her stay. She will continue with speech pathology recommendation. At discharge it is recommended that she follow up with ENT as an outpatient to further monitor and address. Patient with hyperlipidemia. At discharge she will continue with pravastatin 40 mg daily and fish oil once daily. Vital Signs/Physical Exam: Temp Pulse Resp BP Pulse Ox 97.2 F 56 17 145/65 H 95 04/29/19 08:00 04/29/19 08:00 04/29/19 08:00 04/29/19 08:00 04/29/19 08:00 General: Alert, In no apparent distress, Oriented x3, Cooperative HEENT: Atraumatic Neck: Supple Respiratory: Clear to auscultation bilaterally, Normal air movement Cardiovascular: Normal pulses, Regular rate/rhythm Gastrointestinal: Normal bowel sounds, Soft and benign, Non-distended, No tenderness, No masses, No rebound, No guarding Musculoskeletal: No erythema, No tenderness, No warmth Integumentary: No warmth, No cyanosis, Other (Left lower extremity bandaged) Neurological: Normal speech, Normal strength at 5/5 x4 extr, Normal tone, Normal affect Laboratory Data at Discharge: WBC 11.6 K/uL (4.3-10.9) H 04/29/19 05:47 Hgb 11.6 g/dL (12.0-15.0) L 04/29/19 05:47 Hct 35.5 % (36.0-45.0) L 04/29/19 05:47 Plt Count 155 K/uL (152-406) D 04/29/19 05:47 Sodium 137 mmol/L (136-145) 04/29/19 05:47 Potassium 4.5 mmol/L (3.5-5.1) 04/29/19 05:47 BUN 32 mg/dL (7-18) H 04/29/19 05:47 Creatinine 0.95 mg/dL (0.55-1.3) 04/29/19 05:47 Glucose 209 mg/dL (74-106) H 04/29/19 05:47 Magnesium 2.0 mg/dL (1.8-2.4) 04/26/19 05:42 Total Bilirubin 0.2 mg/dL (0.2-1.0) 04/29/19 05:47 AST 7 U/L (15-37) L 04/29/19 05:47 ALT 22 U/L (12-78) 04/29/19 05:47 Alkaline Phosphatase 64 U/L (45-117) 04/29/19 05:47 Home Medications: Aspirin 81 mg PO DAILY 01/30/12 Divalproex ER [Depakote *ER] 250 mg PO BID 01/19/15 Clopidogrel Bisulfate [Plavix] 1 tab PO DAILY 09/21/16 Pregabalin [Lyrica] 300 cap PO BID 09/21/16 Sertraline [Zoloft*] 1 tab PO DAILY 09/21/16 Montelukast [Singulair*] 1 tab PO BEDTIME 10/21/17 Pravastatin Sodium 40 mg PO BEDTIME 10/21/17 Albuterol Sulfate [Proventil Hfa] 2 inhaler IH QID PRN 11/22/17 Loperamide [Imodium*] 2 mg PO TID PRN 06/19/18 Albuterol Neb [Proventil 0.083% Neb Soln] 2.5 mg NEB QID 04/17/19 Arginine/Ascorbate Sod/Adrianne AC [Arginaid Powder] 1 packet PO DAILY 04/17/19 Ascorbic Acid [Vitamin C] 500 mg PO BID 04/17/19 Furosemide [Lasix] 20 mg PO DAILY 04/17/19 Hume-3/Dha/Epa/Fish Oil [Fish Oil 1,000 mg Softgel] 1 cap PO DAILY 04/17/19 Umeclidinium Brm/Vilanterol Tr [Anoro Ellipta 62.5-25 Mcg INH] 1 puff IN DAILY 04/17/19 Mupirocin Oint [Bactroban 2% Ointment*] 1 appl TOP BID #1 tube 04/22/19 Benzonatate [Tessalon Perle*] 100 mg PO TID PRN #15 cap 04/29/19 Guaifenesin [Mucinex] 600 mg PO BID #5 tab.er.12h 04/29/19 Insulin Glargine Human [Lantus*] 30 units SQ BEDTIME #1 bottle 04/29/19 predniSONE [Deltasone*] 10 mg PO SEECOM #15 tab 04/29/19 New Medications: Benzonatate [Tessalon Perle*] 100 mg PO TID PRN #15 cap PRN Reason: Cough Guaifenesin [Mucinex] 600 mg PO BID #5 tab.er.12h Insulin Glargine Human [Lantus*] 30 units SQ BEDTIME #1 bottle predniSONE [Deltasone*] 10 mg PO SEECOM #15 tab Patient Discharge Instructions: 1. Patient be transferred to skilled facility to continue her care. 2. Patient presented with acute on chronic respiratory failure. This was secondary to left lower lobe pneumonia and atelectasis. This was also complicated with COPD exacerbation. Patient was admitted and treated. Patient seen by pulmonology. During the course of her stay her condition improved. Patient is on chronic oxygen. At discharge patient without any significant shortness of breath. Patient will continue with oxygen to maintain sats above 90%. At discharge patient will continue with prednisone 10 mg 1 pill twice daily for 5 days then 1 pill once daily for 5 days. Patient will also continue with COPD medication-Anoro 1 puff daily, albuterol 1 unit dose 3 times a day as needed for shortness of breath and Atrovent 1 unit dose 3 times a day as needed for shortness of breath. Patient will also be provided Tessalon Perles 100 mg 3 times a day as needed for cough and Mucinex 600 mg twice daily for congestion. At discharge patient will be transferred to [facility] facility to continue her care. 3. Patient also had hemopytosis. Recent CT scan showed hilar adenopathy. Bronchoscopy was to be arranged as an outpatient. Due to her symptoms, bronchoscopy was done in the hospital. No mass was identified. Analysis was sent for cultures including acid-fast and pathology. Patient will follow up with pulmonology in 1 week to follow up results. 4. Patient has left lower extremity wound. Cultures were obtained. Culture positive for Staphylococcus auricularis. This requires IV antibiotic therapy. PICC line placed. At discharge she will continue with vancomycin IV. She will continue with vancomycin for total of 14 days. Pharmacy to monitor and adjust medication. Further adjustment may also be done by nursing consultant. Continue with current wound care and medication. 5. Patient with diabetes mellitus type 2, insulin-dependent. Patient previously on insulin 70/ 30. This has been changed to Lantus. At discharge she will continue with Lantus 30 units subcu daily. Recommend to maintain blood sugars less 140 fasting less than 200 after meals. Further adjustment can be done at the skilled facility. 6. Patient with chronic diastolic CHF. Patient will continue with a 1500 cc per day fluid restriction and low-salt diet. Patient will continue with Lasix 20 mg daily as needed for edema. 7. Patient with CAD. At discharge she will continue with aspirin 81 mg daily and Plavix 75 mg daily. 8. Patient with diabetic neuropathy and chronic pain. At discharge she will continue with Lyrica 300 mg twice daily. 9. Patient with depression with anxiety. This has remained stable. At discharge she will continue with Zoloft 100 mg daily and Depakote 250 mg 1 pill twice daily. Further adjustment can be done by her PCP. 10. Patient also had dysphagia. CT neck was done. This improved in her stay. She will continue with speech pathology recommendation. At discharge it is recommended that she follow up with ENT as an outpatient to further monitor and address. 11. Patient with hyperlipidemia. At discharge she will continue with pravastatin 40 mg daily and fish oil once daily. Diet: ADA Activity: Fall precautions Time spent managing pt's care (in minutes): 55
[2019-04-29] MEDS ORDERED: VANCOMYCIN 1.25 GM in NA CHLORIDE 0.9% 250 ML IVPB SCH (10:00)
--- NOTE | 2019-04-29 12:22 | P.PN ---
Subjective Date of Service: 04/29/19 Primary Care Provider: Dr. Whalen; Pulmonary-Dr. Chau Chief Complaint: Cough and congestion status post bronchoscopy No change in patient's condition still has cough and congestion [facility] status post bronchoscopy Review of Systems General: Weakness Respiratory: Cough, Shortness of Breath Physical Examination - Vital Signs Temperature: 97.2 F Blood Pressure: 145/65 Pulse: 56 Respirations: 17 Pulse Ox (%): 95 - Physical Exam General: Alert, In no apparent distress, Oriented x3 Respiratory: Expiratory wheezes Cardiovascular: No edema, Regular rate/rhythm Assessment & Plan - Problems (Diagnosis) (1) Lung cancer Current Visit: No Status: Acute Plan: Presumed lung cancer bronchoscopy was nondiagnostic wire brushing this negative water make apparent secretions throughout the entire respiratory tract follow the patient in 1 or 2 weeks and consider referring her to a thoracic surgeon in an [place] for occasional for ultrasound-guided biopsy prognosis is very poor she is very debilitated patient will be on IV antibiotics for her wound infection patient has bronchodilators and steroids
[2019-04-29 12:44] VITALS: O2SAT 98
[2019-04-30] MEDS ORDERED: VANCOMYCIN 1 GM in NA CHLORIDE 0.9% 500 ML IVPB SCH (09:00)
--- NOTE | 2019-04-30 10:46 | RAD REPORT ---
EXAM DESCRIPTION: RAD - Chest Single View - 04/29/2019 2:51 am CLINICAL HISTORY: The patient is 63 years old and is Female; PICC Placement TECHNIQUE: Frontal view of the chest. COMPARISON: No relevant prior studies available. FINDINGS: LUNGS: Left basilar opacity is noted. PLEURAL SPACE: Unremarkable. No pneumothorax. HEART: Unremarkable. No cardiomegaly. MEDIASTINUM: Unremarkable. BONES/JOINTS: Unremarkable. TUBES, LINES AND DEVICES: A right upper extremity PICC is present with the tip at the SVC/RA sina ction. IMPRESSION: 1. A right upper extremity PICC is present with the tip at the SVC/RA junction. 2. Findings suggestive of left basilar atelectasis. Electronically signed by: Pearl Liu MD 04/29/2019 3:20 AM CDT Due to temporary technical issues with the PACS/Fluency reporting system, reports are being signed by the in house radiologist as a courtesy to ensure prompt reporting. The interpreting radiologist is f ully responsible for the content of the report.
== END 2019-04-29 14:02 | DRG 190 ==
LOC: ER 19:32 → ERHOLD 22:55 → 2ND 23:38
PROVIDERS: ADMIT Family Medicine; ATTEND Family Medicine
PROC: 0B9D8ZX Drainage of Right Middle Lung Lobe, Via Natural or Artificial Opening Endoscopic, Diagnostic (ICD-10-PCS; 2019-04-28)
PROC: 0BD58ZX Extraction of Right Middle Lobe Bronchus, Via Natural or Artificial Opening Endoscopic, Diagnostic (ICD-10-PCS; 2019-04-28)
PROC: 02HV33Z Insertion of Infusion Device into Superior Vena Cava, Percutaneous Approach (ICD-10-PCS; principal; 2019-04-29)
DX: J44.0 Chronic obstructive pulmonary disease with (acute) lower respiratory infection (principal); J18.9 Pneumonia, unspecified organism; J96.20 Acute and chronic respiratory failure, unspecified whether with hypoxia or hypercapnia; R04.2 Hemoptysis; J98.11 Atelectasis; I50.32 Chronic diastolic (congestive) heart failure; C34.90 Malignant neoplasm of unspecified part of unspecified bronchus or lung; J44.1 Chronic obstructive pulmonary disease with (acute) exacerbation; S81.802A Unspecified open wound, left lower leg, initial encounter; B95.7 Other staphylococcus as the cause of diseases classified elsewhere; I11.0 Hypertensive heart disease with heart failure; E87.5 Hyperkalemia; R13.10 Dysphagia, unspecified; K21.9 Gastro-esophageal reflux disease without esophagitis; F41.8 Other specified anxiety disorders; E78.2 Mixed hyperlipidemia; I48.91 Unspecified atrial fibrillation; N28.9 Disorder of kidney and ureter, unspecified; R59.0 Localized enlarged lymph nodes; E11.65 Type 2 diabetes mellitus with hyperglycemia; Z99.81 Dependence on supplemental oxygen; E11.40 Type 2 diabetes mellitus with diabetic neuropathy, unspecified; Z96.652 Presence of left artificial knee joint; I25.10 Atherosclerotic heart disease of native coronary artery without angina pectoris
CPT/HCPCS: 36415; 70491; 71045; 71046; 74230; 76000; 80048; 80053; 80076; 80202; 81003; 81015; 82962; 83735; 84484; 85025; 87040; 87070; 87077; 87086; 87088; 87186; 87205; 87493; 88108; 88305; 92526; 92610; 92611; 93005; 94640; 96360; 99285; J0744; J1650; J2370; J2405; J2704; J3010; J7030; J7512; J7605; Q9967

== ENCOUNTER 2019-06-28 13:07 | Emergency (ER) | payer OTHER ==
[2019-06-28 13:33] LABS: Absolute Lymphocytes (CBC) 1.3 K/uL (0.7-4.9); Basophils % 0.2 % (0-1.3); Hematocrit 32.2 % (36.0-45.0); Lymphocytes % 8.2 % (15.3-44.8); MPV 8.9 fL (7.6-11.3); RBC Red Blood Cell Count 4.01 M/uL (3.86-4.86)
[2019-06-28 13:50] LABS: ALT/SGPT 13 U/L (12-78); AST/SGOT 5 U/L (15-37); Albumin 3.2 g/dL (3.4-5.0); Alkaline Phosphatase 102 U/L (45-117); BUN Blood Urea Nitrogen 69 mg/dL (7-18); Bicarbonate 22 mmol/L (21-32); Bilirubin Direct < 0.1 mg/dL (0-0.2); Bilirubin Total 0.3 mg/dL (0.2-1.0); Lipase 96 U/L (73-393); Potassium 4.5 mmol/L (3.5-5.1); Protein, Total 7.3 g/dL (6.4-8.2); Sodium Level 130 mmol/L (136-145)
[2019-06-28 13:56] LABS: Glucose Level 508 mg/dL (74-106)
[2019-06-28] MEDS ORDERED: INSULIN -REGULAR HUMAN 50 UNIT/0.5 ML ML ONE (14:05)
[2019-06-28] MEDS ORDERED: NA CHLORIDE 0.9% 1,000 ML ONE (14:05)
[2019-06-28] MEDS ORDERED: ACETAMINOPHEN 325 MG TABLET ONE (14:24)
[2019-06-28] MEDS ORDERED: ONDANSETRON 4 MG/2 ML VIAL ONE (14:24)
[2019-06-28 15:07] LABS: Blood Morphology Comment NOT SEEN (NOT SEEN); Platelet Estimate ADEQ; Urine White Blood Cell Casts OK
[2019-06-28 15:39] LABS: Potassium 3.8 mmol/L (3.5-5.1)
--- NOTE | 2019-06-28 16:12 | EDPHYS ---
Physician Documentation [facility] Name: Nakia Turcios Age: 63 yrs Sex: Female : 1955 Arrival Date: 06/28/2019 Time: 13:08 Bed 7 Private MD: ED Physician Phillip Hurtado HPI: 06/28 13:33 This 63 yrs old Female presents to ER via EMS with complaints of kdr Nausea/Vomiting/Diarrhea. 13:33 The patient presents to the emergency department with nausea, that is mild, vomiting, kdr that is intermittent, diarrhea, that is intermittent, abdominal pain, of the abdomen diffusely, described as achy, crampy, dull, vague,\E\ waxing and waning, and does not radiate. Onset: The symptoms/episode began/occurred gradually, yesterday. Possible causes: unknown. The symptoms are aggravated by food , The symptoms are alleviated by nothing. Associated signs and symptoms: Pertinent positives: abdominal pain, diarrhea, nausea, vomiting, Pertinent negatives: constipation, dysuria, fever, GI bleeding, hematuria, vaginal discharge. Severity of symptoms: At their worst the symptoms were moderate in the emergency department the symptoms have improved mildly. The patient has not experienced similar symptoms in the past. The patient has not recently seen a physician. Historical: - Allergies: 13:19 Codeine (Anaphylaxis); jl7 13:19 FLU VACCINE; jl7 - Home Meds: 13:19 Albuterol Inhl 4 times per day [Active]; aspirin 81 mg Oral chew 1 tab once daily jl7 [Active]; atorvastatin 20 mg Oral tab 1 tab nightly [Active]; clopidogrel 75 mg Oral tab [Active]; diltiazem HCl 120 mg Oral CDER 1 cap once daily [Active]; divalproex 250 mg Oral Tb24 2 tabs once daily [Active]; formoterol fumarate inhalation inhalation [Active]; Insulin: Novolin 70/30 130 units in am and 105 at night Sub-Q [Active]; lisinopril 10 mg Oral tab 1 tab once daily [Active]; montelukast 10 mg Oral tab once daily [Active]; prednisone 10 mg oral tab [Active]; Lyrica 300mg Oral 2 times per day [Active]; Ozempic 0.5mg SubQ [Active]; sertraline 100 mg Oral tab 1 tab once daily [Active]; clonazepam 0.5 mg Oral tab [Active]; - PMHx: 13:19 CHF; COPD; Diabetes - IDDM; Hypertension; neuropathy; jl7 - PSHx: 13:19 Knee surgery; Appendectomy; wrist; cataract; pain pump; R foot; jl7 - Immunization history:: Adult Immunizations not up to date. - Social history:: Smoking status: Patient/guardian denies using tobacco, but has a distant history of tobacco abuse. - Ebola Screening: : No symptoms or risks identified at this time. ROS: 13:33 Constitutional: Negative for fever, chills, and weight loss, Eyes: Negative for injury, kdr pain, redness, and discharge, ENT: Negative for injury, pain, and discharge, Neck: Negative for injury, pain, and swelling, Cardiovascular: Negative for chest pain, palpitations, and edema, Respiratory: Negative for shortness of breath, cough, wheezing, and pleuritic chest pain, Back: Negative for injury and pain, : Negative for injury, bleeding, discharge, and swelling, MS/Extremity: Negative for injury and deformity, Skin: Negative for injury, rash, and discoloration, Neuro: Negative for headache, weakness, numbness, tingling, and seizure activity. Psych: Negative for depression, anxiety, suicide ideation, homicidal ideation, and hallucinations, Allergy/Immunology: Negative for hives, rash, and allergies, Endocrine: Negative for neck swelling, polydipsia, polyuria, polyphagia, and marked weight changes, Hematologic/Lymphatic: Negative for swollen nodes, abnormal bleeding, and unusual bruising. 13:33 Abdomen/GI: Positive for abdominal pain, nausea, vomiting, and diarrhea, abdominal cramps. Exam: 13:33 Constitutional: This is a well developed, well nourished patient who is awake, alert, kdr and in no acute distress. Head/Face: Normocephalic, atraumatic. Eyes: Pupils equal round and reactive to light, extra-ocular motions intact. Lids and lashes normal. Conjunctiva and sclera are non-icteric and not injected. Cornea within normal limits. Periorbital areas with no swelling, redness, or edema. Neck: Trachea midline, no thyromegaly or masses palpated, and no cervical lymphadenopathy. Supple, full range of motion without nuchal rigidity, or vertebral point tenderness. No Meningismus. Chest/axilla: Normal chest wall appearance and motion. Nontender with no deformity. No lesions are appreciated. Cardiovascular: Regular rate and rhythm with a normal S1 and S2. No gallops, murmurs, or rubs. Normal PMI, no JVD. No pulse deficits. Respiratory: Lungs have equal breath sounds bilaterally, clear to auscultation and percussion. No rales, rhonchi or wheezes noted. No increased work of breathing, no retractions or nasal flaring. Back: No spinal tenderness. No costovertebral tenderness. Full range of motion. Skin: Warm, dry with normal turgor. Normal color with no rashes, no lesions, and no evidence of cellulitis. MS/ Extremity: Pulses equal, no cyanosis. Neurovascular intact. Full, normal range of motion. Neuro: Awake and alert, GCS 15, oriented to person, place, time, and situation. Cranial nerves II-XII grossly intact. Motor strength 5/5 in all extremities. Sensory grossly intact. Cerebellar exam normal. Normal gait. Psych: Awake, alert, with orientation to person, place and time. Behavior, mood, and affect are within normal limits. 13:33 Abdomen/GI: Inspection: obese Bowel sounds: diminished, in all quadrants, Palpation: soft, mild abdominal tenderness, in all quadrants. Vital Signs: 13:19 BP 103 / 60; Pulse 83; Resp 16 S; Temp 98.1(O); Pulse Ox 97% on R/A; Pain 9/10; jl7 13:50 BP 125 / 88; Pulse 79; Resp 16 S; Pulse Ox 98% on R/A; jl7 14:44 BP 124 / 61; Pulse 81; Resp 19; Pulse Ox 96% on 3 lpm NC; jl7 15:30 BP 121 / 83; Pulse 78; Resp 16 S; Pulse Ox 99% on R/A; Pain 7/10; jl7 MDM: 13:33 Data reviewed: vital signs, nurses notes, lab test result(s), radiologic studies. kdr Counseling: I had a detailed discussion with the patient and/or guardian regarding: the historical points, exam findings, and any diagnostic results supporting the discharge/admit diagnosis, lab results, radiology results, the need for outpatient follow up. 16:11 Patient medically screened. kdr 06/28 13:14 Order name: Basic Metabolic Panel; Complete Time: 13:59 kdr 06/28 13:14 Order name: CBC with Diff; Complete Time: 15:15 kdr 06/28 13:14 Order name: Creatinine for Radiology; Complete Time: 13:59 kdr 06/28 13:14 Order name: Hepatic Function; Complete Time: 13:59 kdr 06/28 13:14 Order name: Lipase; Complete Time: 13:59 kdr 06/28 14:50 Order name: Glucometer Result Nova jl7 06/28 14:53 Order name: Basic Metabolic Panel; Complete Time: 15:43 jl7 06/28 15:07 Order name: CBC Smear Scan; Complete Time: 15:15 EDMS 06/28 13:14 Order name: IV Saline Lock; Complete Time: 13:27 kdr 06/28 13:14 Order name: Labs collected and sent; Complete Time: 13:27 kdr 06/28 14:45 Order name: Blood Glucose Level; Complete Time: 14:56 kdr 06/28 14:45 Order name: Fingerstick Glucose; Complete Time: 14:56 kdr Administered Medications: 14:09 Drug: Insulin Regular Human 10 units {Co-Signature: bp (Mike Barney RN).} Route: IVP; 7 Site: right forearm; 14:55 Follow up: Response: Blood sugar is lowered jl7 14:09 Drug: NS 0.9% 1000 ml Route: IV; Rate: 1 bolus; Site: right forearm; jl7 14:27 Drug: Tylenol 650 mg Route: PO; jl7 15:00 Follow up: Response: No adverse reaction; Pain is decreased jl 14:28 Drug: Zofran 4 mg Route: IVP; Site: right forearm; jl7 14:55 Follow up: Response: No adverse reaction; Nausea is decreased jl7 Disposition: 06/28/19 16:11 Discharged to Home. Impression: Nausea and vomiting, Diarrhea, unspecified, Hyperglycemia, unspecified, Very Mild DKA - Resolved, Dehydration, Renal Insufficency . - Condition is Stable. - Discharge Instructions: Nausea and Vomiting, Adult, Sqmj-[id number]-Irej, Diarrhea, Adult, Guhg-ge-Yqha, Dehydration, Adult, Ddmu-ru-Xmil, Hyperglycemia, Rvkr-tx-Bczy. - Prescriptions for Zofran 4 mg Oral Tablet - take 1 tablet by ORAL route every 12 hours As needed; 20 tablet. - Medication Reconciliation Form, Thank You Letter, Antibiotic Education, Prescription Opioid Use form. - Follow up: Private Physician; When: 2 - 3 days; Reason: If symptoms return, Further diagnostic work-up, Recheck today's complaints, Continuance of care, Re-evaluation by your physician. - Problem is new. - Symptoms have improved. Signatures: Dispatcher [employer] EDMS Phillip Hurtado MD MD kdr Dianna Colbert RN RN jl7 Mike Barney RN bp Corrections: (The following items were deleted from the chart) 16:18 16:11 06/28/2019 16:11 Discharged to Home. Impression: Nausea and vomiting; Diarrhea, kdr unspecified; Hyperglycemia, unspecified; Very Mild DKA - Resolved. Condition is Stable. Forms are Medication Reconciliation Form, Thank You Letter, Antibiotic Education, Prescription Opioid Use. Follow up: Private Physician; When: 2 - 3 days; Reason: If symptoms return, Further diagnostic work-up, Recheck today's complaints, Continuance of care, Re-evaluation by your physician. Problem is new. Symptoms have improved. kdr 16:30 16:18 06/28/2019 16:11 Discharged to Home. Impression: Nausea and vomiting; Diarrhea, jl7 unspecified; Hyperglycemia, unspecified; Very Mild DKA - Resolved; Dehydration; Renal Insufficency . Condition is Stable. Discharge Instructions: Nausea and Vomiting, Adult, Rsle-mt-Okxs, Diarrhea, Adult, Uqir-wp-Pxyj, Hyperglycemia, Mcjb-ra-Nmhf. Prescriptions for Zofran 4 mg Oral Tablet - take 1 tablet by ORAL route every 12 hours As needed; 20 tablet. and Forms are Medication Reconciliation Form, Thank You Letter, Antibiotic Education, Prescription Opioid Use. Follow up: Private Physician; When: 2 - 3 days; Reason: If symptoms return, Further diagnostic work-up, Recheck today's complaints, Continuance of care, Re-evaluation by your physician. Problem is new. Symptoms have improved. kdr
--- NOTE | 2019-06-28 16:12 | ER ---
Nurse's Notes [facility] Name: Nakia Turcios Age: 63 yrs Sex: Female : 1955 Arrival Date: 06/28/2019 Time: 13:08 Bed 7 Private MD: Diagnosis: Nausea and vomiting;Diarrhea, unspecified;Hyperglycemia, unspecified;Very Mild DKA - Resolved;Dehydration;Renal Insufficency Presentation: 06/28 13:08 Presenting complaint: EMS states: N/V/D, WHITLOCK and weakness started yesterday, BGL 575. jl7 Transition of care: patient was not received from another setting of care. Onset of symptoms was June 27, 2019. Risk Assessment: Do you want to hurt yourself or someone else? Patient reports no desire to harm self or others. Initial Sepsis Screen: Does the patient meet any 2 criteria? RR > 20 per min. No. Patient's initial sepsis screen is negative. Does the patient have a suspected source of infection? No. Patient's initial sepsis screen is negative. Care prior to arrival: Glucose check: 525. 13:08 Method Of Arrival: EMS: [facility] 7 13:08 Acuity: JESUSITA 2 jl7 Historical: - Allergies: 13:19 Codeine (Anaphylaxis); jl7 13:19 FLU VACCINE; jl7 - Home Meds: 13:19 Albuterol Inhl 4 times per day [Active]; aspirin 81 mg Oral chew 1 tab once daily jl7 [Active]; atorvastatin 20 mg Oral tab 1 tab nightly [Active]; clopidogrel 75 mg Oral tab [Active]; diltiazem HCl 120 mg Oral CDER 1 cap once daily [Active]; divalproex 250 mg Oral Tb24 2 tabs once daily [Active]; formoterol fumarate inhalation inhalation [Active]; Insulin: Novolin 70/30 130 units in am and 105 at night Sub-Q [Active]; lisinopril 10 mg Oral tab 1 tab once daily [Active]; montelukast 10 mg Oral tab once daily [Active]; prednisone 10 mg oral tab [Active]; Lyrica 300mg Oral 2 times per day [Active]; Ozempic 0.5mg SubQ [Active]; sertraline 100 mg Oral tab 1 tab once daily [Active]; clonazepam 0.5 mg Oral tab [Active]; - PMHx: 13:19 CHF; COPD; Diabetes - IDDM; Hypertension; neuropathy; jl7 - PSHx: 13:19 Knee surgery; Appendectomy; wrist; cataract; pain pump; R foot; jl7 - Immunization history:: Adult Immunizations not up to date. - Social history:: Smoking status: Patient/guardian denies using tobacco, but has a distant history of tobacco abuse. - Ebola Screening: : No symptoms or risks identified at this time. Screenin:00 Abuse screen: Denies threats or abuse. Denies injuries from another. Nutritional jl7 screening: No deficits noted. Tuberculosis screening: No symptoms or risk factors identified. Fall Risk IV access (20 points). Gait- Weak (10 pts.). Total Saucedo Fall Scale indicates Low Risk Score (25-44 pts). Fall prevention measures have been instituted. Side Rails Up X 2 Placed close to Nursing Station Frequent Obs/Assesments occuring Family Present and informed to notify staff if they need to leave bedside As available Patient and Family Educated on Fall Prevention Program and strategies. Assessment: 13:10 General: Appears in no apparent distress. uncomfortable, Behavior is calm, cooperative, jl7 appropriate for age. Pain: Complains of pain in WHITLOCK Pain currently is 9 out of 10 on a pain scale. Quality of pain is described as throbbing, Pain began 1 day ago. Is continuous. Neuro: Level of Consciousness is awake, alert, obeys commands, Oriented to person, place, time, situation. Cardiovascular: Heart tones present Patient's skin is warm and dry. Respiratory: Airway is patent Respiratory effort is even, unlabored, Respiratory pattern is regular, symmetrical, Breath sounds are clear bilaterally. GI: Abdomen is round non-distended, Bowel sounds present X 4 quads. : No signs and/or symptoms were reported regarding the genitourinary system. EENT: No signs and/or symptoms were reported regarding the EENT system. Derm: Skin is pink, warm \T\ dry. Musculoskeletal: No signs and/or symptoms reported regarding the musculoskeletal system. 14:27 Reassessment: Pt reports WHITLOCK, rated 9/10 and nausea, ERD notified, see MAR for orders. jl7 15:30 Reassessment: Patient appears in no apparent distress at this time. Patient and/or jl7 family updated on plan of care and expected duration. Pain level reassessed. Patient is alert, oriented x 3, equal unlabored respirations, skin warm/dry/pink. Patient states feeling better. Patient states symptoms have improved. Vital Signs: 13:19 BP 103 / 60; Pulse 83; Resp 16 S; Temp 98.1(O); Pulse Ox 97% on R/A; Pain 9/10; jl7 13:50 BP 125 / 88; Pulse 79; Resp 16 S; Pulse Ox 98% on R/A; jl7 14:44 BP 124 / 61; Pulse 81; Resp 19; Pulse Ox 96% on 3 lpm NC; jl7 15:30 BP 121 / 83; Pulse 78; Resp 16 S; Pulse Ox 99% on R/A; Pain 7/10; jl7 ED Course: 13:08 Patient arrived in ED. jl7 13:10 Triage completed. jl7 13:14 Phillip Hurtado MD is Attending Physician. kdr 13:19 Arm band placed on right wrist. jl7 13:20 Patient has correct armband on for positive identification. Placed in gown. Bed in low jl7 position. Call light in reach. Side rails up X 1. Warm blanket given. 13:20 monitoring manager on. Pulse ox on. NIBP on. jl7 13:20 Initial lab(s) drawn, by ED staff, sent to lab. Inserted saline lock: 22 gauge in right jl7 forearm, using aseptic technique. Blood collected. 13:27 Dianna Colbert RN is Primary Nurse. jl7 16:27 No provider procedures requiring assistance completed. IV discontinued, intact, jl7 bleeding controlled, No redness/swelling at site. Pressure dressing applied. Administered Medications: 14:09 Drug: Insulin Regular Human 10 units {Co-Signature: bp (Mike Barney RN).} Route: IVP; jl7 Site: right forearm; 14:55 Follow up: Response: Blood sugar is lowered jl7 14:09 Drug: NS 0.9% 1000 ml Route: IV; Rate: 1 bolus; Site: right forearm; jl7 14:27 Drug: Tylenol 650 mg Route: PO; jl7 15:00 Follow up: Response: No adverse reaction; Pain is decreased jl7 14:28 Drug: Zofran 4 mg Route: IVP; Site: right forearm; jl7 14:55 Follow up: Response: No adverse reaction; Nausea is decreased jl7 Outcome: 16:11 Discharge ordered by . tuyet 16:27 Discharged to home via wheelchair. [facility] 16:27 Condition: stable 16:27 Discharge instructions given to patient, Instructed on discharge instructions, follow up and referral plans. medication usage, Demonstrated understanding of instructions, follow-up care, medications, Prescriptions given X 1. 16:30 Patient left the ED. jl7 Signatures: Phillip Hurtado MD MD kdr Leal, Jahala RN RN jl7 Mike Barney RN bp
[2019-06-28 17:05] VITALS: TEMP 98.1
[2019-06-28 17:15] VITALS: BP 121/83; O2SAT 99
== END 2019-06-28 16:30 | disposition home or self-care (01) ==
LOC: ER 13:07
DX: E86.0 Dehydration (principal); E11.65 Type 2 diabetes mellitus with hyperglycemia; N28.9 Disorder of kidney and ureter, unspecified; R19.7 Diarrhea, unspecified; I10 Essential (primary) hypertension; J44.9 Chronic obstructive pulmonary disease, unspecified; I50.9 Heart failure, unspecified; Z79.4 Long term (current) use of insulin; Z79.82 Long term (current) use of aspirin; Z88.5 Allergy status to narcotic agent; Z88.7 Allergy status to serum and vaccine
CPT/HCPCS: 85025; 80048 ×2; 36415; 82962 ×2; 80076; 83690; 96375; 96374; 99284; J7030; J2405

== ENCOUNTER 2019-07-15 21:14 | Emergency (ER) | payer OTHER ==
[2019-07-15 21:59] LABS: Absolute Lymphocytes (CBC) 1.2 K/uL (0.7-4.9); Basophils % 0.3 % (0-1.3); Hematocrit 37.8 % (36.0-45.0); Lymphocytes % 8.7 % (15.3-44.8); MPV 8.5 fL (7.6-11.3); RBC Red Blood Cell Count 4.68 M/uL (3.86-4.86)
[2019-07-15 22:17] LABS: ALT/SGPT 20 U/L (12-78); AST/SGOT 9 U/L (15-37); Albumin 3.4 g/dL (3.4-5.0); Alkaline Phosphatase 70 U/L (45-117); BUN Blood Urea Nitrogen 35 mg/dL (7-18); Bicarbonate 29 mmol/L (21-32); Bilirubin Direct < 0.1 mg/dL (0-0.2); Bilirubin Total 0.4 mg/dL (0.2-1.0); Glucose Level 237 mg/dL (74-106); Lipase 75 U/L (73-393); Potassium 4.1 mmol/L (3.5-5.1); Protein, Total 7.3 g/dL (6.4-8.2); Sodium Level 141 mmol/L (136-145)
[2019-07-15] MEDS ORDERED: ONDANSETRON 4 MG/2 ML VIAL ONE (22:34)
[2019-07-15] MEDS ORDERED: NA CHLORIDE 0.9% 1,000 ML ONE (22:34)
--- NOTE | 2019-07-15 23:22 | ER ---
Nurse's Notes [facility] Name: Nakia Turcios Age: 63 yrs Sex: Female : 1955 Arrival Date: 07/15/2019 Time: 21:15 Bed 19 Private MD: Diagnosis: Nausea and vomiting;Diarrhea, unspecified Presentation: 07/15 21:15 Presenting complaint: EMS states: Patient has had 7 episodes of diarrhea and vomiting tl1 today. Pt states the diarrhea has a foul odor and has mucous in it and her vomit is bile. Transition of care: patient was not received from another setting of care. Onset of symptoms was July 15, 2019. Risk Assessment: Do you want to hurt yourself or someone else? Patient reports no desire to harm self or others. Initial Sepsis Screen: Does the patient meet any 2 criteria? No. Patient's initial sepsis screen is negative. Does the patient have a suspected source of infection? No. Patient's initial sepsis screen is negative. Care prior to arrival: Medication(s) given: Phenergan, 12.5 mg, NS bolus 500ML. 21:15 Method Of Arrival: EMS: [facility] tl1 21:15 Acuity: JESUSITA 3 tl1 Historical: - Allergies: 21:19 Codeine (Anaphylaxis); tl1 21:19 FLU VACCINE; tl1 - Home Meds: 21:19 Albuterol Inhl 4 times per day [Active]; aspirin 81 mg Oral chew 1 tab once daily tl1 [Active]; atorvastatin 20 mg Oral tab 1 tab nightly [Active]; clonazepam 0.5 mg Oral tab [Active]; clopidogrel 75 mg Oral tab [Active]; diltiazem HCl 120 mg Oral CDER 1 cap once daily [Active]; divalproex 250 mg Oral Tb24 2 tabs once daily [Active]; formoterol fumarate inhalation [Active]; Insulin: Novolin 70/30 130 units in am and 105 at night Sub-Q [Active]; lisinopril 10 mg Oral tab 1 tab once daily [Active]; Lyrica 300mg Oral 2 times per day [Active]; montelukast 10 mg Oral tab once daily [Active]; Ozempic 0.5mg SubQ [Active]; prednisone 10 mg Oral tab [Active]; sertraline 100 mg Oral tab 1 tab once daily [Active]; - PMHx: 21:19 CHF; COPD; Diabetes - IDDM; Hypertension; neuropathy; tl1 - PSHx: 21:19 cardiac stents; tl1 - Immunization history:: Adult Immunizations not up to date. - Social history:: Smoking status: Patient/guardian denies using tobacco, the patient reports quitting approximately 0.5 years ago, Patient/guardian denies using alcohol, street drugs. - Ebola Screening: : Patient negative for fever greater than or equal to 101.5 degrees Fahrenheit, and additional compatible Ebola Virus Disease symptoms Patient denies exposure to infectious person Patient denies travel to an Ebola-affected area in the 21 days before illness onset. Screenin:25 Abuse screen: Denies threats or abuse. Denies injuries from another. Nutritional wh screening: No deficits noted. Tuberculosis screening: No symptoms or risk factors identified. Fall Risk None identified. Assessment: 21:30 General: Appears in no apparent distress. Behavior is calm, cooperative, appropriate wh for age. Pain: Complains of pain in abdomen Pain does not radiate. Pain currently is 3 out of 10 on a pain scale. Quality of pain is described as crampy, Pain began this afternoon. Neuro: Level of Consciousness is awake, alert, obeys commands, Oriented to person, place, time, situation, Appropriate for age. Cardiovascular: Heart tones S1 S2. Respiratory: Airway is patent Respiratory effort is even, unlabored, Respiratory pattern is regular, symmetrical, Breath sounds with rhonchi bilaterally. GI: Abdomen is flat, non-distended, Bowel sounds present X 4 quads. Abd is soft and non tender X 4 quads. GI: Reports diarrhea, nausea, vomiting. : No signs and/or symptoms were reported regarding the genitourinary system. EENT: No signs and/or symptoms were reported regarding the EENT system. Derm: Wound noted Left foot. Musculoskeletal: Circulation, motion, and sensation intact. 22:39 Reassessment: Patient appears in no apparent distress at this time. No changes from previously documented assessment. Patient and/or family updated on plan of care and expected duration. Pain level reassessed. Patient is alert, oriented x 3, equal unlabored respirations, skin warm/dry/pink. 23:51 Reassessment: Patient appears in no apparent distress at this time. No changes from previously documented assessment. Patient and/or family updated on plan of care and expected duration. Pain level reassessed. Patient is alert/active/playful, equal unlabored respirations, skin warm/dry/pink. Patient denies pain at this time. Patient states feeling better. Patient states symptoms have improved. Vital Signs: 21:19 BP 111 / 64; Pulse 89; Resp 19; Temp 97.8(O); Pulse Ox 90% on R/A; Pain 7/10; tl1 22:39 BP 95 / 50; Pulse 94; Resp 18; Pulse Ox 98% on 3 lpm NC; wh 22:51 BP 132 / 47; Pulse 87; Resp 18; Pulse Ox 100% 3 lpm ; wh 23:51 BP 118 / 55; Pulse 96; Resp 18; Pulse Ox 99% 3 lpm ; ED Course: 21:15 Patient arrived in ED. tl1 21:17 Triage completed. tl1 21:20 Arm band placed on right wrist. tl1 21:20 No provider procedures requiring assistance completed. Maintain EMS IV. Dressing tl1 intact. Good blood return noted. Site clean \T\ dry. Gauge \T\ site: 18 gauge Right Ac. 21:25 Kerri Camejo is Primary Nurse. 21:26 Patient has correct armband on for positive identification. Placed in gown. Bed in low wh position. Call light in reach. Side rails up X 1. Pulse ox on. NIBP on. 21:44 Guillermo Mahaajn MD is Attending Physician. tw4 23:52 IV discontinued, intact, bleeding controlled, No redness/swelling at site. Administered Medications: 22:35 Drug: Zofran 4 mg Route: IVP; Site: right antecubital; 23:27 Follow up: Response: No adverse reaction 23:28 Follow up: Response: Nausea is decreased 22:37 Drug: NS 0.9% 1000 ml Route: IV; Rate: 1 bolus; Site: right antecubital; 23:28 Follow up: Response: No adverse reaction; IV Status: Completed infusion Outcome: 23:21 Discharge ordered by . tw4 23:52 Discharged to home via wheelchair. 23:52 Condition: stable 23:52 Discharge instructions given to patient, Instructed on discharge instructions, follow up and referral plans. medication usage, POC Diarrhea, Nausea and vomiting Demonstrated understanding of instructions, follow-up care, medications, POC Prescriptions given X 1, Taxi was called for transportation 23:53 Patient left the ED. Signatures: Melani Mendosa RN RN tl1 Kerri Camejo Terrence, MD MD tw4 Corrections: (The following items were deleted from the chart) 23:51 21:30 Derm: Wound noted Right foot jj gardner
--- NOTE | 2019-07-15 23:22 | EDPHYS ---
Physician Documentation [facility] Name: Nakia Turcios Age: 63 yrs Sex: Female : 1955 Arrival Date: 07/15/2019 Time: 21:15 Bed 19 Private MD: ED Physician Guillermo Mahajan HPI: 07/16 02:10 This 63 yrs old Female presents to ER via EMS with complaints of tw4 Nausea/Vomiting/Diarrhea. 02:10 The patient presents to the emergency department with nausea, vomiting, 7 times since tw4 the onset of symptoms. The patient presents to the emergency department with diarrhea, 7 times since the onset of symptoms. Onset: The symptoms/episode began/occurred today. Possible causes: unknown. The symptoms are aggravated by nothing. The symptoms are alleviated by nothing. Associated signs and symptoms: The patient has no apparent associated signs or symptoms. Severity of symptoms: At their worst the symptoms were moderate in the emergency department the symptoms are unchanged. The patient has not experienced similar symptoms in the past. Historical: - Allergies: 07/15 21:19 Codeine (Anaphylaxis); tl1 21:19 FLU VACCINE; tl1 - Home Meds: 21:19 Albuterol Inhl 4 times per day [Active]; aspirin 81 mg Oral chew 1 tab once daily tl1 [Active]; atorvastatin 20 mg Oral tab 1 tab nightly [Active]; clonazepam 0.5 mg Oral tab [Active]; clopidogrel 75 mg Oral tab [Active]; diltiazem HCl 120 mg Oral CDER 1 cap once daily [Active]; divalproex 250 mg Oral Tb24 2 tabs once daily [Active]; formoterol fumarate inhalation [Active]; Insulin: Novolin 70/30 130 units in am and 105 at night Sub-Q [Active]; lisinopril 10 mg Oral tab 1 tab once daily [Active]; Lyrica 300mg Oral 2 times per day [Active]; montelukast 10 mg Oral tab once daily [Active]; Ozempic 0.5mg SubQ [Active]; prednisone 10 mg Oral tab [Active]; sertraline 100 mg Oral tab 1 tab once daily [Active]; - PMHx: 21:19 CHF; COPD; Diabetes - IDDM; Hypertension; neuropathy; tl1 - PSHx: 21:19 cardiac stents; tl1 - Immunization history:: Adult Immunizations not up to date. - Social history:: Smoking status: Patient/guardian denies using tobacco, the patient reports quitting approximately 0.5 years ago, Patient/guardian denies using alcohol, street drugs. - Ebola Screening: : Patient negative for fever greater than or equal to 101.5 degrees Fahrenheit, and additional compatible Ebola Virus Disease symptoms Patient denies exposure to infectious person Patient denies travel to an Ebola-affected area in the 21 days before illness onset. ROS: 07/16 02:10 Constitutional: Negative for fever, chills, and weight loss, Eyes: Negative for injury, tw4 pain, redness, and discharge, Cardiovascular: Negative for chest pain, palpitations, and edema, Respiratory: Negative for shortness of breath, cough, wheezing, and pleuritic chest pain, Back: Negative for injury and pain, MS/Extremity: Negative for injury and deformity, Skin: Negative for injury, rash, and discoloration, Neuro: Negative for headache, weakness, numbness, tingling, and seizure. Abdomen/GI: Positive for nausea and vomiting, nausea, vomiting, and diarrhea, nausea, vomiting, diarrhea, Negative for anorexia, dysphagia, hematemesis, black/tarry stool, rectal pain, rectal bleeding, bowel incontinence. Exam: 02:10 Head/Face: Normocephalic, atraumatic. Eyes: Pupils equal round and reactive to light, tw4 extra-ocular motions intact. Lids and lashes normal. Conjunctiva and sclera are non-icteric and not injected. Cornea within normal limits. Periorbital areas with no swelling, redness, or edema. Chest/axilla: Normal chest wall appearance and motion. Nontender with no deformity. No lesions are appreciated. Cardiovascular: Regular rate and rhythm with a normal S1 and S2. No gallops, murmurs, or rubs. Normal PMI, no JVD. No pulse deficits. Respiratory: Lungs have equal breath sounds bilaterally, clear to auscultation and percussion. No rales, rhonchi or wheezes noted. No increased work of breathing, no retractions or nasal flaring. Back: No spinal tenderness. No costovertebral tenderness. Full range of motion. MS/ Extremity: Pulses equal, no cyanosis. Neurovascular intact. Full, normal range of motion. Neuro: Awake and alert, GCS 15, oriented to person, place, time, and situation. Cranial nerves II-XII grossly intact. Motor strength 5/5 in all extremities. Sensory grossly intact. Cerebellar exam normal. Normal gait. 02:10 Constitutional: The patient appears in obvious distress, mildly distressed. 02:10 Abdomen/GI: Inspection: abdomen appears normal, Bowel sounds: diminished, Palpation: abdomen is soft and non-tender, in all quadrants. Vital Signs: 07/15 21:19 BP 111 / 64; Pulse 89; Resp 19; Temp 97.8(O); Pulse Ox 90% on R/A; Pain 7/10; tl1 22:39 BP 95 / 50; Pulse 94; Resp 18; Pulse Ox 98% on 3 lpm NC; wh 22:51 BP 132 / 47; Pulse 87; Resp 18; Pulse Ox 100% 3 lpm ; wh 23:51 BP 118 / 55; Pulse 96; Resp 18; Pulse Ox 99% 3 lpm ; wh MDM: 23:17 Data reviewed: vital signs, nurses notes. Counseling: I had a detailed discussion with tw4 the patient and/or guardian regarding: the historical points, exam findings, and any diagnostic results supporting the discharge/admit diagnosis. 23:21 Patient medically screened. tw4 07/16 02:10 Differential diagnosis: Nonspecific abd pain, gastritis, cholecystitis, pancreatitis, tw4 viral gastroenteritis, gastroenteritis. Data interpreted: Pulse oximetry: Interpretation: normal. Medication response: Zofran relieved the patient's nausea. Response to treatment: the patient's symptoms have markedly improved after treatment, and as a result, I will discharge patient. Special discussion: Based on the patient's Hx, exam, and Dx evaluation, there is no indication for emergent surgery or inpatient Tx. It is understood by the patient/guardian that if the Sx's persist or worsen they need to return immediately for re-evaluation. I discussed with the patient/guardian in detail that at this point there is no indication for admission to the hospital. It is understood, however, that if the symptoms persist or worsen the patient needs to return immediately for re-evaluation. 07/15 21:44 Order name: Basic Metabolic Panel; Complete Time: 22:28 tw4 07/15 23:16 Interpretation: Normal except: GLUC 237; BUN 35; GFR 45. tw4 07/15 21:44 Order name: CBC with Diff; Complete Time: 22:28 tw4 07/15 23:16 Interpretation: Normal except: WBC 13.6; MCH 26.6; PLT 133; RDW 16.3; NEUT A 11.3; LYM% tw4 8.7; BERENICE% 82.7. 07/15 21:44 Order name: Creatinine for Radiology; Complete Time: 22:28 tw4 07/15 23:16 Interpretation: GFR 46. tw4 07/15 21:44 Order name: Hepatic Function; Complete Time: 22:28 tw4 07/15 23:16 Interpretation: Normal except: GLOB 3.9; A/G 0.9; AST 9. tw4 07/15 21:44 Order name: Lipase; Complete Time: 22:28 tw4 07/16 02:10 Interpretation: Within normal limits: LIP 75. tw4 07/15 21:44 Order name: IV Saline Lock; Complete Time: 21:57 tw4 07/15 21:44 Order name: Labs collected and sent; Complete Time: 21:57 tw4 Administered Medications: 07/15 22:35 Drug: Zofran 4 mg Route: IVP; Site: right antecubital; 23:27 Follow up: Response: No adverse reaction 23:28 Follow up: Response: Nausea is decreased 22:37 Drug: NS 0.9% 1000 ml Route: IV; Rate: 1 bolus; Site: right antecubital; 23:28 Follow up: Response: No adverse reaction; IV Status: Completed infusion Disposition: 07/15/19 23:21 Discharged to Home. Impression: Nausea and vomiting, Diarrhea, unspecified. - Condition is Stable. - Discharge Instructions: Food Choices to Help Relieve Diarrhea, Adult, Diarrhea, Adult, Nausea and Vomiting, Adult, [id number]. - Prescriptions for Zofran 4 mg Oral Tablet - take 1 tablet by ORAL route every 12 hours As needed; 6 tablet. Lomotil 2.5- 0.025 mg Oral Tablet - take 2 tablet by ORAL route once daily As needed; 20 tablet. - Medication Reconciliation Form, Thank You Letter, Antibiotic Education, Prescription Opioid Use form. - Follow up: Private Physician; When: Upon discharge from the Emergency Department; Reason: Recheck today's complaints, Continuance of care. - Problem is new. - Symptoms have improved. Signatures: Dispatcher [employer] EDMelani Schmidt RN RN tl1 Kerri Camejo Terrence, MD MD tw4 Corrections: (The following items were deleted from the chart) 23:53 23:21 07/15/2019 23:21 Discharged to Home. Impression: Nausea and vomiting; Diarrhea, wh unspecified. Condition is Stable. Forms are Medication Reconciliation Form, Thank You Letter, Antibiotic Education, Prescription Opioid Use. Follow up: Private Physician; When: Upon discharge from the Emergency Department; Reason: Recheck today's complaints, Continuance of care. Problem is new. Symptoms have improved. tw4
[2019-07-15 23:58] VITALS: TEMP 97.8
[2019-07-16 00:28] VITALS: BP 118/55; O2SAT 99
== END 2019-07-15 23:53 | disposition home or self-care (01) ==
LOC: ER 21:14
DX: R11.2 Nausea with vomiting, unspecified (principal); R19.7 Diarrhea, unspecified; Z88.6 Allergy status to analgesic agent; Z88.7 Allergy status to serum and vaccine; J44.9 Chronic obstructive pulmonary disease, unspecified; I10 Essential (primary) hypertension; E11.9 Type 2 diabetes mellitus without complications; G62.9 Polyneuropathy, unspecified; I50.9 Heart failure, unspecified
CPT/HCPCS: 85025; 80048; 36415; 80076; 83690; J7030; J2405; 96361; 96374; 99284

== ENCOUNTER 2019-08-03 | Inpatient (IN) | payer OTHER ==
[2019-08-03 00:36] LABS: Absolute Lymphocytes (CBC) 1.5 K/uL (0.7-4.9); Basophils % 0.7 % (0-1.3); Hematocrit 23.6 % (36.0-45.0); Lymphocytes % 16.8 % (15.3-44.8); MPV 8.5 fL (7.6-11.3); RBC Red Blood Cell Count 2.98 M/uL (3.86-4.86)
[2019-08-03] MEDS ORDERED: ACETAMINOPHEN 500 MG TAB ONE (00:45)
[2019-08-03] MEDS ORDERED: NA CHLORIDE 0.9% 1,000 ML ONE (00:45)
[2019-08-03 00:57] LABS: BUN Blood Urea Nitrogen 50 mg/dL (7-18); Bicarbonate 27 mmol/L (21-32); Glucose Level 59 mg/dL (74-106); Sodium Level 141 mmol/L (136-145); Troponin (Emerg Dept Use Only) < 0.02 ng/mL (0.0-0.045)
[2019-08-03] MEDS ORDERED: CEFTRIAXONE/SWI 1gm 1 GM/10 ML SYR ONE (01:56)
[2019-08-03] MEDS ORDERED: NA CHLORIDE 0.9% 250 ML ONE (01:56)
[2019-08-03] MEDS ORDERED: AZITHROMYCIN 500 MG INJ IVPB ONE (01:56)
[2019-08-03] MEDS ORDERED: D50W 25 GM/50 ML SYRINGE/VIAL IV ONE (02:56)
[2019-08-03] MEDS ORDERED: METHYLPREDNISOLONE 125 MG INJ ONE (03:18)
[2019-08-03] MEDS ORDERED: LEVALBUTEROL 1.25 MG/3 ML NEB ONE (03:19)
[2019-08-03] MEDS ORDERED: D5 0.9 NS 1,000 ML IV ONE (03:19)
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
--- NOTE | 2019-08-03 04:04 | P.HP ---
Certification for Inpatient Patient admitted to: Inpatient With expected LOS: >2 Midnights Practitioner: I am a practitioner with admitting privileges, knowledge of patient current condition, hospital course, and medical plan of care. Services: Services provided to patient in accordance with Admission requirements found in Title 42 Section 412.3 of the Code of Federal Regulations Patient History Date of Service: 08/03/19 Reason for admission: Shortness of breath and fever History of Present Illness: 63-year-old woman with a history of diabetes mellitus type 1, history of COPD presented emergency department with a complaint of multiple falls at home. Patient also reports shortness of breath and wheezing. She also reports cough and fever. She stated her cough is productive of greenish sputum. Patient denied any chest pain. She also reports her blood sugar has been difficult to control lately. She was hypoglycemic in the ED. Blood sugar was as low as 46. CT chest done in the ED suggest the presence of left lower lobe pneumonia. Also noted that drop in her hemoglobin from 12 to 8 over a period of 3 weeks. She was given D50 in the ED. She also given a dose of IV Rocephin and Zithromax. Patient is admitted for further management. Allergies codeine [Codeine] Allergy (Intermediate, Verified 04/24/19 00:12) Itching/Hives/Rash flu vaccine Allergy (Uncoded 04/24/19 00:12) Anaphylaxis - Past Medical/Surgical History Diabetic: Yes -: Neuropathy -: Diabetes mellitus type 1 insulin-dependent -: A-Fib not on chronic anti coagulation therapy -: COPD, severe, 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 She also has a common-law partner. She does not work. Patient is DNR. - Family History Father -: Heart disease, Lung disease Mother -: Lung disease, Diabetes - Social History Alcohol use: No CD- Drugs: No Caffeine use: Yes Review of Systems Other: General: No unintentional weight loss. Eyes: No eye discharge, CVS: No chest pain, no palpitation, no lightheadedness. GI: No abdominal pain, no nausea no vomit, no constipation, no diarrhea. Genitourinary: No dysuria, no urinary frequency, no incontinence, no hematuria. Musculoskeletal: No joint pains, or joint swelling, no gait instability. Neurology: No headache, no asymmetric, weakness, no problem with swallowing. Except as documented, all other systems reviewed and negative. Physical Examination - Physical Exam General: Alert, In no apparent distress, Oriented x3 HEENT: Atraumatic, Normocephalic, PERRLA, Mucous membr. moist/pink, Sclerae nonicteric Neck: Supple, JVD not distended, No Thyromegaly Respiratory: Clear to auscultation bilaterally, Diminished, Expiratory wheezes Cardiovascular: No edema, Regular rate/rhythm, Normal S1 S2, No murmurs Capillary refill: <2 Seconds Gastrointestinal: Normal bowel sounds, Soft and benign, Non-distended, No tenderness Musculoskeletal: No swelling Integumentary: No rashes Neurological: Normal speech, Normal strength at 5/5 x4 extr, Cranial nerves 3- 12 intact - Studies Laboratory Data (last 24 hrs) 08/03/19 00:19: Sodium 141, Potassium 4.0, BUN 50 H, Creatinine 1.23, Glucose 59 L 08/03/19 00:19: WBC 8.7, Hgb 8.0 L, Hct 23.6 L, Plt Count 219 Microbiology Data (last 24 hrs): 08/03/19 00:13 Nasopharnyx Influenza Type A Antigen Screen - Final 08/03/19 00:13 Nasopharnyx Influenza Type B Antigen Screen - Final Assessment and Plan - Problems (Diagnosis) (1) Hypoglycemia Current Visit: Yes Status: Acute (2) COPD exacerbation Onset Date: 10/18/15 Current Visit: No Status: Acute (3) Low blood pressure Onset Date: 07/17/14 Current Visit: No Status: Acute Qualifiers: Hypotension type: unspecified hypotension type Qualified Code(s): I95.9 - Hypotension, unspecified (4) Pneumonia Onset Date: 10/13/16 Current Visit: No Status: Acute Qualifiers: Pneumonia type: due to unspecified organism Laterality: left Lung location: lower lobe of lung Qualified Code(s): J18.9 - Pneumonia, unspecified organism (5) Diabetes mellitus Current Visit: No Status: Chronic Qualifiers: Diabetes mellitus type: type 2 Diabetes mellitus alf insulin use: without alf use Diabetes mellitus complication status: with neurologic complications Diabetes mellitus complication detail: with unspecified neuropathy Qualified Code(s): E11.40 - Type 2 diabetes mellitus with diabetic neuropathy, unspecified (6) Anemia Current Visit: Yes Status: Acute - Plan Admit to ICU Check fingerstick glucose every 1 hour and give D50 as needed hypoglycemia Hypoglycemia protocol Hydrate with IV normal saline. Will treat pneumonia with IV Rocephin and Zithromax Follow blood cultures Sputum culture. Scheduled duoneb, albuterol p.r.n. IV methylprednisolone Titrate oxygen Check stool for occult blood Monitor H&H every 12 hours Transfuse PRBCs p.r.n. for hemoglobin less than 8. - Advance Directives Does patient have a Living Will: Yes Does patient have a Durable POA for Healthcare: Yes
[2019-08-03] MEDS ORDERED: NA CHLORIDE 0.9% 500 ML ONE (04:28)
[2019-08-03] MEDS ORDERED: NA CHLORIDE 0.9% 1,000 ML IV SCH (05:46)
[2019-08-03 06:29] LABS: Hematocrit 19.3 % (36.0-45.0)
[2019-08-03] MEDS: INSULIN -REGULAR HUMAN 50 UNIT/0.5 ML ML SQ SCH ×4 (07:30→20:25)
[2019-08-03 07:46] LABS: Thyroid Stimulating Hormone 0.368 uIU/mL (0.360-3.740); Troponin I < 0.02 ng/mL (0.0-0.045)
[2019-08-03] MEDS: ALBUTEROL 2.5 MG/3 ML NEB SOL NEB SCH ×3 (08:04→20:00)
[2019-08-03] MEDS: IPRATROPIUM BROM 0.5MG/2.5ML NEB SCH ×4 (08:04→20:00)
--- NOTE | 2019-08-03 08:17 | RAD REPORT ---
EXAM DESCRIPTION: RAD - Wrist Left 3 View - 08/03/2019 12:47 am CLINICAL HISTORY: Left wrist pain COMPARISON: Left wrist February 2008 FINDINGS: No fracture is identified. There is no dislocation or periosteal reaction noted. Small bon e density at the tip at the ulna styloid has been present on prior imaging. Patient has degenerative change at the scaphoid trapezium articulation and the trapezium first metacarpal articulation. These degenerative changes have progressed since the 1999 study. No pathologic or destructive bone process. No suspicious soft tissue finding. No foreign body. IMPRESSION: Left wrist degenerative changes as detailed. No acute findings.
--- NOTE | 2019-08-03 08:19 | RAD REPORT ---
EXAM DESCRIPTION: RAD - Hand Left 3 View - 08/03/2019 12:48 am CLINICAL HISTORY: Nontraumatic left hand and wrist pain COMPARISON: None. FINDINGS: No fracture, dislocation or periosteal reaction noted. The IP joint space narrowing is pre sent with minimal spurring and no erosive component. Joint space narrowing is seen at the first, four th and fifth MCP joints. There is no spurring or erosive change. Degenerative changes present at the scaphoid- trapezium and trapezium-first metacarpal articulations. Radiocarpal joint space narrowing i s suspected. No acute or destructive bone process. No periarticular soft tissue mass or calcification. No air or f oreign body in the soft tissues. IMPRESSION: Multifocal left hand joint degenerative changes are present as detailed. No acute or miladis tructive finding.
[2019-08-03] MEDS ORDERED: NA CHLORIDE 0.9% 50 ML ONE (09:00)
[2019-08-03] MEDS: METHYLPREDNISOLONE 40 MG INJ IV SCH ×3 (11:20→23:10)
[2019-08-03] MEDS ORDERED: PREGABALIN 150 MG CAP PO ONE (13:33)
--- NOTE | 2019-08-03 14:52 | PN ---
Date of Progress Note: 08/03/2019 Subjective: Patient is seen and examined, chart was reviewed, and case was discussed with RN. Mega robles is still somewhat hypotensive. States she feels better than yesterday. Medication List: Reviewed. Physical Examination: Vital Signs: Temperature 97, heart rate 74, blood pressure 100/45, respirations 28, O2 92% on 2 L vi a nasal cannula. General: Awake, alert, oriented x3, in some mild distress. Appears older than stated age. Ill-appe aring female. CV: S1, S2. Regular rate and rhythm. Peripheral pulses present. Respiratory: Diminished breath sounds. Some rhonchi heard. No wheezing or stridor. No use of acce ssory muscles. Gastrointestinal: Abdomen is soft, nontender, nondistended. Positive bowel sounds. Extremities: No clubbing, cyanosis, or edema. Neuro: Cranial nerves 2 through 12 intact grossly. No focal neurological deficit. Speech is normal . Skin: No rashes. Normal skin turgor. Laboratory Data: H and H are 6.9 and 19.3. Glucose has been ranging from 45 to 141. Lactate 1.7. Troponin less than 0.02. TSH 0.368. Blood cultures and urine cultures pending. Flu screen is negat jim. Stool occult blood is also negative. Assessment: A 63-year-old female with: 1.Acute chronic obstructive pulmonary disease exacerbation. We will continue with breathing treatme nts, nebulizers, supplemental oxygen p.r.n. 2.Pneumonia, left lower lobe. We will continue IV antibiotics. Flu screen is negative. Follow up on culture results. 3.Hypertension. Patient's MAP has been hovering around 55. May need to give a limited bolus due to history of CHF. Patient is currently receiving blood. We will reassess blood pressure post transfu triny. 4.Acute anemia, unclear etiology. Hemoccult stool is negative. We will check iron studies. 5.Severe hypoglycemia. Blood glucose level was 45. Patient received steroids and is currently on D 50. We will continue to monitor, improving. 6.Diabetes mellitus type 1, insulin dependent. Currently with hypoglycemia. We will monitor blood glucose levels closely. 7.Neuropathy. 8.Atrial fibrillation, not on anticoagulation, paroxysmal. 9.Major depressive disorder, single episode, currently in remission. 10.Generalized anxiety disorder, stable. 11.Mixed hyperlipidemia. We will resume home medications as appropriate. 12.Chronic pain syndrome. 13.Diabetic foot ulcer on the left plantar aspect, being managed by Dr. Peterson. No signs of acute in fection. 14.Diastolic heart failure, chronic. We will continue to monitor I's and O's, free fluid restrictio n. 15.Deep vein thrombosis prophylaxis, addressed. Plan: Continue monitoring in the ICU setting. /LUIS Voice ID: [id number] Report ID: [id number]
[2019-08-03] MEDS: ONDANSETRON 4 MG/2 ML VIAL IV PRN ×2 (15:04→20:47)
[2019-08-03] MEDS ORDERED: NA CHLORIDE 0.9% 500 ML IV ONE (15:12)
[2019-08-03] MEDS ORDERED: NOREPINEPHRINE 4 MG in D5W 250 ML IV PRN (17:00)
[2019-08-03] MEDS: AZITHROMYCIN IV 500 MG in NA CHLORIDE 0.9% 250 ML IVPB SCH (20:23)
[2019-08-03] MEDS: MONTELUKAST 10 MG TAB PO SCH (20:24)
[2019-08-03] MEDS: ATORVASTATIN 10 MG TAB PO SCH (20:24)
[2019-08-03] MEDS: DIVALPROEX ER 250 MG TAB PO SCH (20:24)
[2019-08-03 20:40] LABS: Hematocrit 24.2 % (36.0-45.0)
[2019-08-03] MEDS: CEFTRIAXONE/SWI 1gm 1 GM/10 ML SYR IVP SCH (21:23)
[2019-08-03] MEDS ORDERED: CEFTRIAXONE 1 GM/NS 50 ML 1 GM/50 ML BAG IV SCH (22:00)
[2019-08-03] MEDS ORDERED: CEFTRIAXONE/SWI 1gm 1 GM/10 ML SYR IV SCH (22:00)
[2019-08-03] MEDS: guaiFENesin 100 MG/5 ML UCUP PO PRN (22:07)
[2019-08-03] MEDS: TIZANIDINE 4 MG TABLET PO PRN (23:11)
[2019-08-03] MEDS: PREGABALIN 150 MG CAP PO SCH (23:11)
[2019-08-03] MEDS ORDERED: FUROSEMIDE 40 MG/4 ML VIAL IV ONE (23:52)
[2019-08-04] MEDS: IPRATROPIUM BROM 0.5MG/2.5ML NEB SCH ×4 (01:55→20:25)
[2019-08-04] MEDS: ALBUTEROL 2.5 MG/3 ML NEB SOL NEB SCH ×4 (01:56→20:25)
[2019-08-04] MEDS: guaiFENesin 100 MG/5 ML UCUP PO PRN ×2 (04:28→20:47)
[2019-08-04 05:04] LABS: Absolute Lymphocytes (CBC) 0.4 K/uL (0.7-4.9); Basophils % 0.2 % (0-1.3); Hematocrit 24.7 % (36.0-45.0); Lymphocytes % 6.2 % (15.3-44.8); MPV 8.8 fL (7.6-11.3); RBC Red Blood Cell Count 3.07 M/uL (3.86-4.86)
[2019-08-04] MEDS: METHYLPREDNISOLONE 40 MG INJ IV SCH ×3 (05:10→17:02)
[2019-08-04 05:30] LABS: Phosphorus 2.9 mg/dL (2.5-4.9); Potassium 4.8 mmol/L (3.5-5.1)
[2019-08-04 06:42] LABS: Blood Morphology Comment NOT SEEN (NOT SEEN); Platelet Estimate ADEQ
--- NOTE | 2019-08-04 07:09 | EKG ---
Test Date: 2019-08-03 Test Time: 01:15:06 Insert Molding Operator: PAYTON MEASUREMENT RESULTS: Intervals: Rate: 86 MI: 122 QRSD: 130 QT: 386 QTc: 461 [place]: P: 56 MI: 122 QRS: 60 T: 41 INTERPRETIVE STATEMENTS: Normal sinus rhythm Right bundle branch block Abnormal ECG Compared to ECG 04/23/2019 19:58:27 No significant changes Electronically Signed On 08-04-19 07:07:56 HORSE EXERCISER by Fransisco Khan
--- NOTE | 2019-08-04 07:18 | RAD REPORT ---
EXAM DESCRIPTION: RAD - Chest Single View - 08/04/2019 6:19 am CLINICAL HISTORY: CHF, pneumonia COMPARISON: August 03 TECHNIQUE: AP portable chest image was obtained 0612 hours . FINDINGS: Right lung base and medial left lung base alveolar opacification has slightly worsened. Pa tient has worsening patchy interstitial and alveolar opacities in the upper lung hobson. Cardiac silh ouette remains within normal limits. Central vasculature is prominent. No measurable pleural effusion and no pneumothorax. No acute bony abnormality seen. No acute aortic findings suspected. IMPRESSION: Worsening interstitial and alveolar opacification. In the absence of cardiomegaly, findings may reflect pneumonia as well as volume overload or noncardi ogenic edema. Failure without cardiomegaly is unusual but not excluded.
[2019-08-04] MEDS: INSULIN -REGULAR HUMAN 50 UNIT/0.5 ML ML SQ SCH ×4 (07:30→20:38)
[2019-08-04] MEDS: PREGABALIN 150 MG CAP PO SCH ×2 (08:41→20:37)
[2019-08-04] MEDS: DIVALPROEX ER 250 MG TAB PO SCH ×2 (08:41→20:45)
[2019-08-04] MEDS: SERTRALINE HCL 50 MG TAB PO SCH (08:41)
[2019-08-04] MEDS ORDERED: SERTRALINE HCL 100 MG TAB PO SCH (09:00)
[2019-08-04] MEDS ORDERED: FUROSEMIDE 40 MG/4 ML VIAL IV ONE (09:16)
[2019-08-04 09:56] LABS: Arterial Blood Carboxyhemoglob 1.5 % (0-1.5); Blood Gas Oxyhemoglobin 90.4 % (94-97); Blood O2 Saturation 92.3 % (92-98.5)
--- NOTE | 2019-08-04 10:41 | RAD REPORT ---
EXAM DESCRIPTION: RAD - Chest Single View - 08/03/2019 11:52 pm CLINICAL HISTORY: 3 years Female, SOB Comparison: Chest radiograph dated August 03, 2019 FINDINGS: Prominence of interstitial and right lung base opacity. Left pleural effusion. No pneumothorax. Cardiomegaly, interstitial edema and venous congestion. No acute osseous abnormality. IMPRESSION: Cardiomegaly, interstitial edema as congestion. Bilateral interstitial opacities which may represent superimposed infectious process. Small left pleural effusion. Electronically signed by: Abram Jones DO 08/03/2019 11:27 PM LIFE SCIENCE TEACHER Due to temporary technical issues with the PACS/Fluency reporting system, reports are being signed by the in house radiologist as a courtesy to ensure prompt reporting. The interpreting radiologist is f ully responsible for the content of the report.
--- NOTE | 2019-08-04 12:31 | RAD REPORT ---
EXAM DESCRIPTION: RAD - Chest Single View - 08/03/2019 12:48 am CLINICAL HISTORY: Fever, cough, COPD. COMPARISON: 04/29/2019 TECHNIQUE: AP Chest. FINDINGS: Heart is enlarged. There is pulmonary vascular congestion. Left lower lobe opacities may b e due to soft tissue artifact rather than infiltrate. No pneumothorax. No large pleural effusion. Unremarkable soft tissues. Bones are intact to the extent visualized. IMPRESSION: 1. Left lower lobe hazy opacities may be due to soft tissue artifact versus infiltrates. Consider conventional PA and lateral projection if patient condition permits. 2. Cardiomegaly with pulmonary vascular congestion. Electronically signed by: Jennifer Hayes DO 08/03/2019 1:20 AM BROADCAST DESIGNER Due to temporary technical issues with the PACS/Fluency reporting system, reports are being signed by the in house radiologist as a courtesy to ensure prompt reporting. The interpreting radiologist is f ully responsible for the content of the report.
--- NOTE | 2019-08-04 12:32 | RAD REPORT ---
EXAM DESCRIPTION: CT - Abdomen Pelvis W Contrast - 08/03/2019 4:24 am CLINICAL HISTORY: Fever and abdominal pain. COMPARISON: None. TECHNIQUE: Axial CT imaging of the abdomen and pelvis performed with intravenous contrast. Reformatt ed coronal and sagittal images reviewed. A dose reduction technique was utilized with automated exposure control according to patient size. FINDINGS: Lingula and left lower lobe atelectasis and possibly infiltrates. Heart is normal in size. Normal liver contour and attenuation. Mild intrahepatic and extra hepatic biliary ductal dilatation. Common bile duct is 9 mm. No obstructing stone or mass. Gallbladder has been resected. Spleen is enla rged to 15.9 cm. No varices. Normal pancreas. Normal adrenal glands and kidneys. Moderate aorta ather osclerosis. No aneurysm. Normal caliber inferior vena cava. No adenopathy. Small hiatal hernia. Normal remaining stomach. Small bowel loops are normal in caliber. Appendix is n ot visualized. Mild sigmoid colon diverticulosis without diverticulitis. No mesenteric edema, ascites , or free air. Unremarkable bladder. Uterus is surgically absent. No pelvic free fluid. There is a 1.6 cm nodule in the right hemipelvis with internal calcifications which may represent calcifications within an atroph ic right ovary or lymph node. Mild L4-5 and L5-S1 diffuse disc bulge. Dystrophic calcifications at th nava levels. There is an intrathecal catheter identified within the lumbosacral spine from L3 to S2. U nremarkable bony pelvis and hips. IMPRESSION: 1. Lingula and left lower lobe atelectasis/infiltrates. 2. Mild postcholecystectomy biliary dilatation. 3. Splenomegaly. 4. Mild sigmoid colon diverticulosis without diverticulitis.. 5. Intrathecal catheter from L3 to S2 noted. No extraspinal catheter identified. Electronically signed by: Jennifer Hayes DO 08/03/2019 2:56 AM LOAD DROPPER Due to temporary technical issues with the PACS/Fluency reporting system, reports are being signed by the in house radiologist as a courtesy to ensure prompt reporting. The interpreting radiologist is f ully responsible for the content of the report.
--- NOTE | 2019-08-04 14:44 | P.PN ---
Subjective Date of Service: 08/04/19 Chief Complaint: Shortness of breath and fever Patient seen and examined at bedside with RN. Chart reviewed. Case discussed with pulmonology at this time. Patient this morning started having shortness of breath was placed on Venti mask. Given IV Lasix x1. Marked improvement in her symptoms. Does seem to have sleep apnea however not diagnosed. Currently not using CPAP at home either. Will put on CPAP here in the hospital while asleep. Review of Systems 10-point ROS is otherwise unremarkable Physical Examination - Vital Signs Temperature: 97 F Blood Pressure: 109/70 Pulse: 93 Respirations: 22 Pulse Ox (%): 91 - Physical Exam General: Alert, In no apparent distress HEENT: Atraumatic, PERRLA, EOMI Neck: Supple, JVD not distended Respiratory: Clear to auscultation bilaterally, Crackles/rales, Expiratory wheezes, Inspiratory wheezes Cardiovascular: Regular rate/rhythm, Normal S1 S2 Gastrointestinal: Normal bowel sounds, No tenderness Musculoskeletal: No tenderness Integumentary: No rashes Neurological: Normal speech, Normal tone, Normal affect Lymphatics: No axilla or inguinal lymphadenopathy - Studies Microbiology Data (last 24 hrs): 08/03/19 00:13 Wound - Left Foot Gram Stain - Final 08/03/19 00:19 Blood - Blood Gram Stain - Final Medications List Reviewed: Yes Assessment And Plan - Current Problems (Diagnosis) (1) Acute respiratory failure Current Visit: No Status: Acute Plan: Acute respiratory failure most likely hypercapnia -most likely secondary to multifactorial reasons COPD exacerbation versus CHF exacerbation -duo nebs, steroids, oxygenation at this time. If no improvement will start patient on BiPAP -for CHF exacerbation started patient on IV Lasix here in the hospital -Chest CT at this time. Qualifiers: Respiratory failure complication: hypoxia Qualified Code(s): J96.01 - Acute respiratory failure with hypoxia (2) COPD exacerbation Onset Date: 10/18/15 Current Visit: No Status: Acute Plan: COPD exacerbation most likely secondary to bacterial infection pneumonia -duo nebs, steroids, oxygenation -started on IV antibiotics here in the hospital -will follow up with sputum culture (3) CHF (congestive heart failure) Current Visit: No Status: Chronic Plan: Congestive heart failure most likely systolic heart failure -started on IV Lasix 40 mg daily here in the hospital -also on lisinopril which was restarted here is well -strict I&O -low sodium diet and fluid restriction Qualifiers: Qualified Code(s): I50.32 - Chronic diastolic (congestive) heart failure (4) Depressive disorder Onset Date: 08/07/16 Current Visit: No Status: Chronic (5) Diabetes mellitus Current Visit: No Status: Chronic Qualifiers: Diabetes mellitus type: type 2 Diabetes mellitus intermediate designer insulin use: without intermediate designer use Diabetes mellitus complication status: with neurologic complications Diabetes mellitus complication detail: with unspecified neuropathy Qualified Code(s): E11.40 - Type 2 diabetes mellitus with diabetic neuropathy, unspecified (6) HTN (hypertension) Onset Date: 08/07/16 Current Visit: No Status: Chronic Qualifiers: Hypertension type: essential hypertension Qualified Code(s): I10 - Essential (primary) hypertension (7) PVD (peripheral vascular disease) Onset Date: 06/19/18 Current Visit: No Status: Chronic - Plan Pending clinical improvement will continue to monitor patient in the ICU Discharge Plan: Home Plan to discharge in: Greater than 2 days - Code Status/Comfort Care Code Status Assessed: Yes Critical Care: Yes
--- NOTE | 2019-08-04 15:47 | RAD REPORT ---
EXAM DESCRIPTION: CT - Thorax Wo Con CLINICAL HISTORY: Chest pain SOB COMPARISON: Thorax W/ Con dated 06/09/2019; Chest Single View dated 08/04/2019 FINDINGS: Extensive bilateral ground-glass and alveolar lung opacities are present relatively diffus marek distributed involving both lungs. Small left and small to moderate right pleural effusion is note d. No pneumothorax. Mildly prominent lymph nodes are seen in the mediastinum, including AP window measuring 14 mm, sub- c arinal space measuring 21 mm and precarinal space measuring 12 mm. This lymphadenopathy is mildly pro gressive since the 06/09/2019 study. No lytic or blastic bone lesion is identified. Mild splenomegaly is present. All CT scans are performed using dose optimization technique as appropriate and may include automated exposure control or mA/KV adjustment according to patient size. IMPRESSION: Extensive ground-glass and alveolar lung opacities are present bilaterally with small pl eural effusions.Primary considerations would be pneumonia or less likely volume overload/ pulmonary e gopi.
[2019-08-04] MEDS: TIZANIDINE 4 MG TABLET PO PRN (16:09)
[2019-08-04] MEDS: ACETAMINOPHEN 500 MG TAB PO PRN ×2 (16:09→20:37)
[2019-08-04] MEDS: ONDANSETRON 4 MG/2 ML VIAL IV PRN (17:32)
[2019-08-04] MEDS: ATORVASTATIN 10 MG TAB PO SCH (20:37)
[2019-08-04] MEDS: AZITHROMYCIN IV 500 MG in NA CHLORIDE 0.9% 250 ML IVPB SCH (20:37)
[2019-08-04] MEDS: MONTELUKAST 10 MG TAB PO SCH (20:37)
[2019-08-04] MEDS: CEFTRIAXONE/SWI 1gm 1 GM/10 ML SYR IVP SCH (21:49)
[2019-08-05] MEDS: METHYLPREDNISOLONE 40 MG INJ IV SCH ×3 (00:10→12:00)
[2019-08-05] MEDS: IPRATROPIUM BROM 0.5MG/2.5ML NEB SCH ×4 (01:40→20:00)
[2019-08-05] MEDS: ALBUTEROL 2.5 MG/3 ML NEB SOL NEB SCH ×4 (01:40→20:00)
[2019-08-05] MEDS: TIZANIDINE 4 MG TABLET PO PRN (07:07)
[2019-08-05] MEDS: SERTRALINE HCL 50 MG TAB PO SCH (08:46)
[2019-08-05] MEDS: FUROSEMIDE 40 MG/4 ML VIAL IV SCH (08:46)
[2019-08-05] MEDS: lisinopriL 10 MG TAB PO SCH (08:47)
[2019-08-05] MEDS: CLOPIDOGREL 75 MG TABLET PO SCH (08:47)
[2019-08-05] MEDS: INSULIN -REGULAR HUMAN 50 UNIT/0.5 ML ML SQ SCH ×4 (08:47→20:22)
[2019-08-05] MEDS: PREGABALIN 150 MG CAP PO SCH ×2 (08:47→20:22)
[2019-08-05] MEDS: DIVALPROEX ER 250 MG TAB PO SCH ×2 (08:48→20:23)
[2019-08-05 13:13] LABS: Absolute Lymphocytes (CBC) 0.8 K/uL (0.7-4.9); Basophils % 0.2 % (0-1.3); Hematocrit 24.8 % (36.0-45.0); Lymphocytes % 8.2 % (15.3-44.8); MPV 9.2 fL (7.6-11.3); RBC Red Blood Cell Count 3.08 M/uL (3.86-4.86)
--- NOTE | 2019-08-05 13:48 | RAD REPORT ---
EXAM DESCRIPTION: RAD - Chest Single View - 08/05/2019 1:38 pm CLINICAL HISTORY: Pneumonia Chest pain. COMPARISON: Chest Single View dated 08/04/2019; Chest Single View dated 08/03/2019; Chest Single Vie w dated 08/03/2019; Chest Single View dated 04/29/2019 FINDINGS: Portable technique limits examination quality. Since the comparative study, slight worsening in left-sided lung aeration is seen. Right-sided lung a eration appears slightly improved in the right base. The heart is upper limit of normal in size. No d isplaced fractures.
[2019-08-05 13:53] LABS: Albumin 2.8 g/dL (3.4-5.0); Bilirubin Total 0.2 mg/dL (0.2-1.0); Potassium 4.5 mmol/L (3.5-5.1); Protein, Total 7.2 g/dL (6.4-8.2)
--- NOTE | 2019-08-05 14:04 | P.PN ---
Subjective Date of Service: 08/05/19 Chief Complaint: Shortness of breath and fever Patient seen and examined at bedside with RN. Chart reviewed. Case discussed with pulmonology at this time. Marked improvement in her symptoms. Denies having SOB, Fever, Chills, N/V. No other complains to offer. Review of Systems 10-point ROS is otherwise unremarkable Physical Examination - Vital Signs Temperature: 97.1 F Blood Pressure: 140/62 Pulse: 85 Respirations: 20 Pulse Ox (%): 92 - Physical Exam General: Alert, Mild distress HEENT: Atraumatic, PERRLA, EOMI Neck: Supple, JVD not distended Respiratory: Normal air movement, Crackles/rales, Expiratory wheezes, Inspiratory wheezes Cardiovascular: Regular rate/rhythm, Normal S1 S2 Gastrointestinal: Normal bowel sounds, No tenderness Musculoskeletal: No tenderness Integumentary: No rashes Neurological: Normal speech, Normal tone, Normal affect Lymphatics: No axilla or inguinal lymphadenopathy - Studies Microbiology Data (last 24 hrs): 08/03/19 00:13 Wound - Left Foot Gram Stain - Final 08/03/19 00:19 Blood - Blood Gram Stain - Final Medications List Reviewed: Yes Assessment And Plan - Current Problems (Diagnosis) (1) Acute respiratory failure Current Visit: No Status: Acute Plan: Acute respiratory failure most likely hypercapnia -most likely secondary to multifactorial reasons COPD exacerbation versus CHF exacerbation -duo nebs, steroids, lasix, oxygenation at this time. -Today with Marked improvement. -Xray with Improvement tioday on the right side. -lab with marked improvement as well. Qualifiers: Respiratory failure complication: hypoxia Qualified Code(s): J96.01 - Acute respiratory failure with hypoxia (2) COPD exacerbation Onset Date: 10/18/15 Current Visit: No Status: Acute Plan: COPD exacerbation most likely secondary to bacterial vs viral pneumonia -duo nebs, steroids, oxygenation -Switched to IV Levaquin for now. -will follow up with sputum culture (3) CHF (congestive heart failure) Current Visit: No Status: Chronic Plan: Congestive heart failure most likely systolic heart failure -started on IV Lasix 40 mg daily -also on lisinopril, Will continue for now -strict I&O, low sodium diet and fluid restrictions Qualifiers: Qualified Code(s): I50.32 - Chronic diastolic (congestive) heart failure (4) Wound infection Current Visit: Yes Status: Acute Plan: Wound infection -Wound culture + for pseudo -Switched to IV Levaquin for now (5) Depressive disorder Onset Date: 08/07/16 Current Visit: No Status: Chronic (6) Diabetes mellitus Current Visit: No Status: Chronic Qualifiers: Diabetes mellitus type: type 2 Diabetes mellitus fci insulin use: without fci use Diabetes mellitus complication status: with neurologic complications Diabetes mellitus complication detail: with unspecified neuropathy Qualified Code(s): E11.40 - Type 2 diabetes mellitus with diabetic neuropathy, unspecified (7) HTN (hypertension) Onset Date: 08/07/16 Current Visit: No Status: Chronic Qualifiers: Hypertension type: essential hypertension Qualified Code(s): I10 - Essential (primary) hypertension (8) PVD (peripheral vascular disease) Onset Date: 06/19/18 Current Visit: No Status: Chronic - Plan Pending clinical improvement will continue to monitor patient in the ICU. Discharge Plan: Home Plan to discharge in: Greater than 2 days - Code Status/Comfort Care Code Status Assessed: Yes Critical Care: Yes
[2019-08-05 14:39] LABS: Blood Morphology Comment NOT SEEN (NOT SEEN); Platelet Estimate ADEQ; Urine White Blood Cell Casts OK
[2019-08-05] MEDS: Levofloxacin500mg IV 500 MG/100 ML BAG IV SCH (14:44)
[2019-08-05] MEDS: ACETAMINOPHEN 500 MG TAB PO PRN (16:45)
[2019-08-05] MEDS: ATORVASTATIN 10 MG TAB PO SCH (20:23)
[2019-08-05] MEDS: MONTELUKAST 10 MG TAB PO SCH (20:23)
[2019-08-05] MEDS: guaiFENesin 100 MG/5 ML UCUP PO PRN (20:31)
[2019-08-06] MEDS: ACETAMINOPHEN 500 MG TAB PO PRN ×2 (00:42→15:17)
[2019-08-06] MEDS: ALBUTEROL 2.5 MG/3 ML NEB SOL NEB SCH ×4 (02:00→20:00)
[2019-08-06] MEDS: IPRATROPIUM BROM 0.5MG/2.5ML NEB SCH ×4 (02:00→20:00)
[2019-08-06] MEDS: SERTRALINE HCL 50 MG TAB PO SCH (08:01)
[2019-08-06] MEDS: INSULIN -REGULAR HUMAN 50 UNIT/0.5 ML ML SQ SCH ×4 (08:01→20:00)
[2019-08-06] MEDS: lisinopriL 10 MG TAB PO SCH (08:01)
[2019-08-06] MEDS: DIVALPROEX ER 250 MG TAB PO SCH ×2 (08:02→19:59)
[2019-08-06] MEDS: CLOPIDOGREL 75 MG TABLET PO SCH (08:02)
[2019-08-06] MEDS: predniSONE 20 MG TAB PO SCH (08:02)
[2019-08-06] MEDS: FUROSEMIDE 40 MG/4 ML VIAL IV SCH (08:02)
[2019-08-06] MEDS: PREGABALIN 150 MG CAP PO SCH ×2 (08:02→19:59)
[2019-08-06] MEDS: Levofloxacin500mg IV 500 MG/100 ML BAG IV SCH (15:16)
--- NOTE | 2019-08-06 17:49 | PN ---
Subjective: Patient was checked at bedside with ICU nurse. She was noted to have nonproductive coug h. Patient reports that she is doing relatively well. No nausea or vomiting. She experienced some diarrhea, which is chronic. She has some chronic abdominal pain. Her breathing is relatively stable . No fever or chills. Objective: Vital signs: Temperature 97.9, blood pressure 129/54, pulse 81, oxygen saturation 95% on NC 4 L oxygen. HEENT: Atraumatic. PERRLA. No JVD. Moist mouth. Chest: Bilateral mild wheezing without respiratory distress. Decreased breath sounds. Heart: Normal S1, S2. Regular rhythm and rate. No murmur. Abdomen: Obese, hypoactive bowel sounds, nontender. Extremities: No edema, no cyanosis. Neuro: Patient is awake, alert, oriented x3. Nonfocal. Psych: Mood stable. No anxiety. Laboratory Data: WBC 10, hemoglobin 8.5, platelets 240, neutrophils 87.6%. Blood sugar 191. BMP on August 05, sodium 137, potassium 4.5, creatinine 1.36. Assessment And Plan: 1.Acute respiratory failure, most likely hypercapnia is likely due to chronic obstructive pulmonary disease exacerbation versus congestive heart failure exacerbation. She has been on DuoNeb nebulizati on and steroids. Continue Lasix. Continue oxygen. This appears to be improving. Continue IV Levaq uin. 2.Chronic obstructive pulmonary disease exacerbation. Patient experienced wheezing. She continued to experience cough. Continue DuoNeb and steroids. Continue IV Levaquin. We will follow sputum cul ture. Continue oxygen. 3.Congestive heart failure exacerbation. Continue IV Lasix 40 mg daily. Continue lisinopril. She is on low-sodium diet and fluid restrictions. 4.Acute renal failure. Creatinine of 1.36, most likely due to diuresis. We will continue to monito r. Consider change Lasix to oral tomorrow. 5.Wound infection. Wound culture grow pseudomonas. Continue Levaquin for coverage. 6.Depression, stable. We will follow up. 7.Diabetes. Continue sliding scale and Lyrica for neuropathy. Patient has been slowing improved. Likely just patient need SNF placement as she has been living by herself without strong family suppor t. inside sales manager was consulted. QT/MODL Voice ID: [id number] Report ID: [id number]
[2019-08-06] MEDS: MONTELUKAST 10 MG TAB PO SCH (19:59)
[2019-08-06] MEDS: ATORVASTATIN 10 MG TAB PO SCH (19:59)
[2019-08-07] MEDS: ALBUTEROL 2.5 MG/3 ML NEB SOL NEB SCH ×4 (02:00→20:00)
[2019-08-07] MEDS: IPRATROPIUM BROM 0.5MG/2.5ML NEB SCH ×4 (02:00→20:00)
[2019-08-07 04:17] LABS: Absolute Lymphocytes (CBC) 1.6 K/uL (0.7-4.9); Basophils % 0.3 % (0-1.3); Lymphocytes % 22.7 % (15.3-44.8); MPV 8.9 fL (7.6-11.3); RBC Red Blood Cell Count 3.13 M/uL (3.86-4.86)
[2019-08-07 04:35] LABS: Potassium 3.9 mmol/L (3.5-5.1)
[2019-08-07] MEDS ORDERED: POTASSIUM CL SA 10 MEQ TAB PO ONE (05:52)
[2019-08-07] MEDS: lisinopriL 10 MG TAB PO SCH (08:26)
[2019-08-07] MEDS: CLOPIDOGREL 75 MG TABLET PO SCH (08:26)
[2019-08-07] MEDS: INSULIN -REGULAR HUMAN 50 UNIT/0.5 ML ML SQ SCH ×4 (08:26→20:43)
[2019-08-07] MEDS: SERTRALINE HCL 50 MG TAB PO SCH (08:26)
[2019-08-07] MEDS: FUROSEMIDE 40 MG/4 ML VIAL IV SCH (08:26)
[2019-08-07] MEDS: DIVALPROEX ER 250 MG TAB PO SCH ×2 (08:27→20:43)
[2019-08-07] MEDS: predniSONE 20 MG TAB PO SCH (08:27)
[2019-08-07] MEDS: PREGABALIN 150 MG CAP PO SCH ×2 (08:27→20:44)
[2019-08-07] MEDS: ACETAMINOPHEN 500 MG TAB PO PRN (13:14)
[2019-08-07] MEDS: Levofloxacin500mg IV 500 MG/100 ML BAG IV SCH (15:53)
--- NOTE | 2019-08-07 16:41 | PN ---
Subjective: This patient was checked at bedside. Patient appears to be much better this day. She w alked 38 feet today with physical therapy. No fever or chills. Review of Systems: Ten point ROS is otherwise unremarkable. Physical Examination: Vital Signs: Temperature 97.8, heart rate 64, blood pressure 125/63, oxygen saturation 93% on 3 L NC . HEENT: Atraumatic. PERRLA. EOMI. Neck: Supple. Chest: Bilateral mild expiratory wheezing. No labored breathing. Heart: Normal S1, S2. Regular rhythm and rate. No murmur. Abdomen: Soft, nontender, obese. EXTREMITIES: No edema, no cyanosis. NEURO: Patient awake and alert, oriented x4, nonfocal. Laboratory Data: WBC 7.1, hemoglobin 8.5, and platelets 181. Sodium 140, potassium 3.9, creatinine 0.91, glucose 214. Assessment And Plan: 1.Acute respiratory failure, this is likely secondary to chronic obstructive pulmonary disease exace rbation versus congestive heart failure exacerbation. We will continue dual nebulization and steroid s. Continue IV Lasix. She has been on oxygen. Consider changing IV Levaquin to oral. 2.Chronic obstructive pulmonary disease exacerbation. Patient still has mild wheezing. We will con tinue nebulization and steroids treatment. Continue IV antibiotics empirically and oxygen. 3.Congestive heart failure exacerbation. This is improving. No sign of fluid retention. Continue IV Lasix 40 mg and low-sodium diet and fluid restriction. 4.Anemia. Hemoglobin 8.5. This is due to chronic disease. Patient is doing well. We will not giv e transfusion at this moment. 5.Acute renal failure, likely due to diuresis. This is improved. 6.Wound infection. Wound culture grew pseudomonas. Continue Levaquin for coverage. 7.Depression. Her mood is stable. 8.Diabetes. Continue sliding scale and Lyrica for neuropathy. Patient is doing very well. She probably can be discharged to residential home in 1 or 2 days. QT/MODL Voice ID: [id number] Report ID: [id number]
[2019-08-07] MEDS: MONTELUKAST 10 MG TAB PO SCH (20:42)
[2019-08-07] MEDS: ATORVASTATIN 10 MG TAB PO SCH (20:42)
[2019-08-07] MEDS ORDERED: TEMAZEPAM 15 MG CAP PO PRN (21:49)
[2019-08-08] MEDS: IPRATROPIUM BROM 0.5MG/2.5ML NEB SCH ×2 (02:00→08:05)
[2019-08-08] MEDS: ALBUTEROL 2.5 MG/3 ML NEB SOL NEB SCH ×2 (02:00→08:05)
[2019-08-08 06:06] VITALS: BMI 31.6
[2019-08-08 08:37] VITALS: TEMP 97
[2019-08-08] MEDS: DIVALPROEX ER 250 MG TAB PO SCH (08:37)
[2019-08-08] MEDS: CLOPIDOGREL 75 MG TABLET PO SCH (08:37)
[2019-08-08] MEDS: SERTRALINE HCL 50 MG TAB PO SCH (08:37)
[2019-08-08] MEDS: predniSONE 20 MG TAB PO SCH (08:37)
[2019-08-08] MEDS: INSULIN -REGULAR HUMAN 50 UNIT/0.5 ML ML SQ SCH ×2 (08:41→12:43)
[2019-08-08] MEDS: FUROSEMIDE 40 MG/4 ML VIAL IV SCH (08:42)
[2019-08-08 08:43] VITALS: BP 152/70
[2019-08-08] MEDS: lisinopriL 10 MG TAB PO SCH (08:43)
[2019-08-08] MEDS: PREGABALIN 150 MG CAP PO SCH (08:43)
[2019-08-08 11:37] VITALS: O2SAT 93
--- NOTE | 2019-08-08 12:15 | P.DS ---
Admission Date: 08/03/19 Discharge Date: 08/08/19 Reason for Admission: Shortness of breath and fever - Problems (1) Wound infection Status: Chronic (2) Acute respiratory failure Status: Acute Qualifiers: Respiratory failure complication: hypoxia Qualified Code(s): J96.01 - Acute respiratory failure with hypoxia (3) COPD exacerbation Onset Date: 10/18/15 Status: Acute (4) Pneumonia Onset Date: 10/13/16 Status: Acute Qualifiers: Pneumonia type: due to unspecified organism Laterality: left Lung location: lower lobe of lung Qualified Code(s): J18.9 - Pneumonia, unspecified organism (5) Diastolic CHF, chronic Status: Chronic (6) Hypoglycemia Status: Acute (7) Anemia Status: Acute Qualifiers: Anemia type: iron deficiency Brief History of Present Illness: The patient admitted few days ago for hypoglycemia, respiratory distress, and pneumonia. Patient had subsequent finding of anemia as well without gastrointestinal hemorrhage. Patient has been on IV antibiotics and supplemental oxygen. Hospital Course: The patient has done very well over the last few days. Patient will be transitioned to oral antibiotics today and discharged to a jail facility for rehabilitation and continuation of treatment of pneumonia. Patient is on continuous nasal cannula oxygen at 2 L. This is baseline for her. Patient has been able to get up and ambulate to side commode. No longer feels abnormally short of breath. Anemia still present but stable. No gastrointestinal hemorrhage noted. Patient is able to tolerate diet without any problem. No more hypoglycemic episodes. Glucose control at this point. <Javier Grigsby - Last Filed: 08/08/19 12:08> Admission Date: 08/03/19 Discharge Date: 08/08/19 Primary Care Provider: unknown Hospital Course: Case discussed and reviewed with Nelson Grigsby NP. Patient will go to skilled facility to continue her treatment. Agree with current plan at this time. <Jose Eduardo Fowler - Last Filed: 08/08/19 17:38> Disposition: TRANSFER TO SNF - MEDICAL Discharge Condition: GOOD Vital Signs/Physical Exam: Temp Pulse Resp BP Pulse Ox 97.0 F 82 16 152/70 H 97 08/08/19 08:00 08/08/19 08:43 08/08/19 08:00 08/08/19 08:43 08/08/19 08:00 General: Alert, In no apparent distress, Oriented x3, Cooperative HEENT: PERRLA, Mucous membr. moist/pink, EOMI Neck: Supple, 2+ carotid pulse no bruit, JVD not distended, No Thyromegaly Respiratory: Normal air movement, Expiratory wheezes Cardiovascular: No edema, Normal pulses, Regular rate/rhythm, Normal S1 S2, No gallops, No rubs, No murmurs Capillary refill: <2 Seconds Gastrointestinal: Normal bowel sounds, Soft and benign, Non-distended, No ascites, No tenderness, No masses Musculoskeletal: No clubbing, No swelling, No contractures, No erythema Integumentary: Other (diabetic wound to right leg. Stable at this time ) Neurological: Normal speech, Normal strength at 5/5 x4 extr, Normal tone, Sensation intact, Cranial nerves 3-12 intact, Normal reflexes 2+, Normal affect Lymphatics: No axilla or inguinal lymphadenopathy Laboratory Data at Discharge: WBC 7.1 K/uL (4.3-10.9) D 08/07/19 03:41 Hgb 8.5 g/dL (12.0-15.0) L 08/07/19 03:41 Hct 25.0 % (36.0-45.0) L 08/07/19 03:41 Plt Count 181 K/uL (152-406) D 08/07/19 03:41 Sodium 140 mmol/L (136-145) 08/07/19 03:41 Potassium 3.9 mmol/L (3.5-5.1) 08/07/19 03:41 BUN 28 mg/dL (7-18) H 08/07/19 03:41 Creatinine 0.91 mg/dL (0.55-1.3) 08/07/19 03:41 Glucose 214 mg/dL (74-106) H 08/07/19 03:41 Phosphorus 2.9 mg/dL (2.5-4.9) 08/04/19 04:22 Magnesium 2.0 mg/dL (1.8-2.4) 08/04/19 04:22 Total Bilirubin 0.2 mg/dL (0.2-1.0) 08/05/19 12:54 AST 8 U/L (15-37) L 08/05/19 12:54 ALT 15 U/L (12-78) 08/05/19 12:54 Alkaline Phosphatase 58 U/L (45-117) 08/05/19 12:54 Troponin I < 0.02 ng/mL (0.0-0.045) 08/03/19 14:05 Triglycerides 203 mg/dL (<150) H 08/04/19 04:22 Cholesterol 136 mg/dL (<200) 08/04/19 04:22 HDL Cholesterol 24 mg/dL (40-60) L 08/04/19 04:22 Cholesterol/HDL Ratio 5.67 08/04/19 04:22 <Javier Grigsby - Last Filed: 08/08/19 12:08> Vital Signs/Physical Exam: Temp Pulse Resp BP Pulse Ox 97.0 F 82 16 152/70 H 97 08/08/19 08:00 08/08/19 08:43 08/08/19 08:00 08/08/19 08:43 08/08/19 08:00 Laboratory Data at Discharge: WBC 7.1 K/uL (4.3-10.9) D 08/07/19 03:41 Hgb 8.5 g/dL (12.0-15.0) L 08/07/19 03:41 Hct 25.0 % (36.0-45.0) L 08/07/19 03:41 Plt Count 181 K/uL (152-406) D 08/07/19 03:41 Sodium 140 mmol/L (136-145) 08/07/19 03:41 Potassium 3.9 mmol/L (3.5-5.1) 08/07/19 03:41 BUN 28 mg/dL (7-18) H 08/07/19 03:41 Creatinine 0.91 mg/dL (0.55-1.3) 08/07/19 03:41 Glucose 214 mg/dL (74-106) H 08/07/19 03:41 Phosphorus 2.9 mg/dL (2.5-4.9) 08/04/19 04:22 Magnesium 2.0 mg/dL (1.8-2.4) 08/04/19 04:22 Total Bilirubin 0.2 mg/dL (0.2-1.0) 08/05/19 12:54 AST 8 U/L (15-37) L 08/05/19 12:54 ALT 15 U/L (12-78) 08/05/19 12:54 Alkaline Phosphatase 58 U/L (45-117) 08/05/19 12:54 Troponin I < 0.02 ng/mL (0.0-0.045) 08/03/19 14:05 Triglycerides 203 mg/dL (<150) H 08/04/19 04:22 Cholesterol 136 mg/dL (<200) 08/04/19 04:22 HDL Cholesterol 24 mg/dL (40-60) L 08/04/19 04:22 Cholesterol/HDL Ratio 5.67 08/04/19 04:22 <Jose Eduardo Fowler - Last Filed: 08/08/19 17:38> Patient Discharge Instructions: -Patient recently came in for acute respiratory failure, pneumonia, anemia, hypoglycemia. -Patient will continue home medication. -Patient going to a jail facility for continuation of antibiotic therapy and stabilization along with rehabilitation. -Patient will take Levaquin 500 mg p.o. qd. for 10 days. -Patient will continue oxygen therapy via nasal cannula Diet: ADA Activity: Ad mercedes Time spent managing pt's care (in minutes): 30 <Javier Grigsby - Last Filed: 08/08/19 12:08> <Jose Eduardo Fowler - Last Filed: 08/08/19 17:38> Home Medications: Alprazolam [Xanax] 1 mg PO BEDTIME 08/03/19 Clopidogrel Bisulfate [Plavix*] 75 mg PO DAILY 08/03/19 Diphenoxylate HCl/Atropine [Diphenoxylat-Atrop 2.5-0.025/5] 2 tsp PO DAILY PRN 08/03/19 Divalproex ER [Depakote *ER] 250 mg PO BID 08/03/19 Furosemide [Lasix] 40 mg PO DAILY 08/03/19 Insulin Glargine Human [Lantus*] 30 units SQ BEDTIME 08/03/19 Insulin NPH Hum/Reg Insulin Hm [Humulin 70/30 Kwikpen] 120 unit SQ BEDTIME 08/03 Insulin NPH Hum/Reg Insulin Hm [Humulin 70/30 Kwikpen] 130 units SQ BREAKFAST Lisinopril 1 tab PO DAILY 08/03/19 Montelukast Sodium 10 mg PO BEDTIME 08/03/19 Pravastatin Sodium 20 mg PO BEDTIME 08/03/19 Pregabalin [Lyrica] 300 mg PO BID 08/03/19 Sertraline [Zoloft*] 150 mg PO DAILY 08/03/19 Tizanidine HCl [Zanaflex] 2 mg PO BID PRN 08/03/19 predniSONE [Deltasone*] 1 tab PO DAILY 08/03/19 Levofloxacin [Levaquin] 500 mg PO DAILY 10 Days #10 tablet 08/08/19 New Medications: Levofloxacin [Levaquin] 500 mg PO DAILY 10 Days #10 tablet
== END 2019-08-08 13:15 | DRG 190 ==
LOC: ER → ERHOLD 04:14 → 3RD-ICU 05:28 → 4TH 08-06 14:25
PROVIDERS: ADMIT Internal Medicine; ATTEND Internal Medicine
DX: J44.0 Chronic obstructive pulmonary disease with (acute) lower respiratory infection (principal); J96.01 Acute respiratory failure with hypoxia; J18.9 Pneumonia, unspecified organism; I50.23 Acute on chronic systolic (congestive) heart failure; N17.9 Acute kidney failure, unspecified; J44.1 Chronic obstructive pulmonary disease with (acute) exacerbation; D50.9 Iron deficiency anemia, unspecified; I11.0 Hypertensive heart disease with heart failure; I73.9 Peripheral vascular disease, unspecified; F32.9 Major depressive disorder, single episode, unspecified; E11.40 Type 2 diabetes mellitus with diabetic neuropathy, unspecified; I48.91 Unspecified atrial fibrillation; Z99.81 Dependence on supplemental oxygen; L08.9 Local infection of the skin and subcutaneous tissue, unspecified; B96.5 Pseudomonas (aeruginosa) (mallei) (pseudomallei) as the cause of diseases classified elsewhere; E11.649 Type 2 diabetes mellitus with hypoglycemia without coma
CPT/HCPCS: 36415; 71045; 71250; 74177; 80048; 80053; 80061; 82274; 82805; 82947; 83605; 83735; 84100; 84145; 84443; 84484; 85014; 85018; 85025; 86850; 86900; 86901; 87040; 87070; 87077; 87086; 87088; 87186; 87205; 87804; 93005; 94660; 94760; 96361; 96365; 96366; 96368; 96375; 97110; 97112; 97116; 97161; 97530; 99285; J0456; J0696; J1940; J2405; J2920; J2930; J7030; J7040; J7042; J7060; J7512; P9016; Q9967

== ENCOUNTER 2021-06-25 14:45 | Emergency (ER) | payer OTHER ==
[2021-06-25] MEDS ORDERED: FENTANYL CITR 100 MCG/2 ML ONE ×2 (16:00→16:15)
[2021-06-25 16:15] LABS: Absolute Lymphocytes (CBC) 1.2 K/uL (0.7-4.9); Basophils % 0.6 % (0-1.3); Hematocrit 31.7 % (36.0-45.0); Lymphocytes % 12.7 % (15.3-44.8); MPV 8.2 fL (7.6-11.3); RBC Red Blood Cell Count 4.13 M/uL (3.86-4.86)
[2021-06-25 16:16] LABS: Protime INR 1.05
[2021-06-25 16:34] LABS: ALT/SGPT 20 U/L (12-78); AST/SGOT 18 U/L (15-37); Albumin 3.7 g/dL (3.4-5.0); Alkaline Phosphatase 50 U/L (45-117); BUN Blood Urea Nitrogen 39 mg/dL (7-18); Bicarbonate 30 mmol/L (21-32); Bilirubin Direct 0.1 mg/dL (0-0.2); Bilirubin Total 0.3 mg/dL (0.2-1.0); Glucose Level 230 mg/dL (74-106); Magnesium 2.3 mg/dL (1.8-2.4); NT PRO-BNP 265 pg/mL (<125); Protein, Total 8.4 g/dL (6.4-8.2); Sodium Level 139 mmol/L (136-145); Troponin (Emerg Dept Use Only) < 0.02 ng/mL (0.0-0.045)
--- NOTE | 2021-06-25 17:24 | RAD REPORT ---
EXAM DESCRIPTION: CT - Head C Spine Cap Wo Con - 06/25/2021 4:27 pm CLINICAL HISTORY: Trauma, head and neck injury. Chest, abdomen and pelvis pain. fall COMPARISON: <Comparisons> TECHNIQUE: CT head without contrast. CT cervical spine without contrast with coronal and sagittal reformatted images. CT chest, abdomen and pelvis without contrast with coronal and sagittal reformatted images of the spi ne. All CT scans are performed using dose optimization technique as appropriate and may include automated exposure control or mA/KV adjustment according to patient size. FINDINGS: CT HEAD WITHOUT CONTRAST: No intracranial hemorrhage, hydrocephalus or extra-axial fluid collection. Moderate generalized brain atrophy is present. No areas of brain edema or midline shift. Mild mucosal thickening is seen in the sphenoid sinuses. The paranasal sinuses are otherwise clear. T he mastoid air cells are well aerated and clear. The calvarium is intact. CT CERVICAL SPINE WITHOUT CONTRAST: No fracture or subluxation. Mild lower cervical degenerative changes. The prevertebral soft tissues a re normal in thickness. CT CHEST, ABDOMEN, PELVIS WITHOUT CONTRAST: NOTE: Lack of contrast is a significant limitation in the assessment of trauma related findings. Spec ifically, solid organ, vascular and bowel evaluation is significantly limited. Subtle opacities are present in both lungs, nonspecific but could indicate a mild alveolitis.There is a fracture the proximal left humerus seen. No dislocation.Trace pleural fluid and atelectasis is pre sent in the left lung base. No evidence of intra-abdominal visceral injury, free fluid or free air is seen within the above detai led limitations. Cholecystectomy clips. No concerning pelvic findings. IMPRESSION: Proximal left humerus fracture noted.
--- NOTE | 2021-06-25 17:30 | RAD REPORT ---
EXAM DESCRIPTION: RAD - Chest Single View - 06/25/2021 4:06 pm CLINICAL HISTORY: SOB Chest pain. COMPARISON: <Comparisons> FINDINGS: Portable technique limits examination quality. Mild interstitial pulmonary edema likely present. The heart is upper limit normal in size. Fracture t he proximal left humerus noted.
--- NOTE | 2021-06-25 17:31 | RAD REPORT ---
EXAM DESCRIPTION: RAD - Humerus Left - 06/25/2021 4:06 pm CLINICAL HISTORY: fall;Pain COMPARISON: No comparisons FINDINGS: Proximal left humerus fracture is seen with no real displacement of fracture fragments. No dislocation present. Mild diffuse osteopenia.
--- NOTE | 2021-06-25 17:32 | RAD REPORT ---
EXAM DESCRIPTION: RAD - Forearm Left - 06/25/2021 4:06 pm CLINICAL HISTORY: fall;Pain COMPARISON: No comparisons FINDINGS: Mild radiocarpal arthritic changes are present. No acute fracture or dislocation.
[2021-06-25] MEDS ORDERED: HYDROCODONE/APAP 10/325 TAB ONE (18:00)
--- NOTE | 2021-06-25 18:10 | ER ---
Nurse's Notes [facility] Name: Nakia Turcios Age: 65 yrs Sex: Female : 1955 Arrival Date: 06/25/2021 Time: 14:47 Bed 19 Private MD: Diagnosis: Laceration with foreign body of scalp;2-part nondisplaced fracture of surgical neck of left humerus, initial encounter for closed fracture Presentation: 06/25 14:52 Chief complaint: Patient states: Trip and fall over a cord at her daughter's house ll1 today around 1330. Fell into a mirror and the wall. Laid on the ground yelling for help for 1 hour. Lacerations to scalp per EMS. Dressing in place. No known LOC. L arm pain also. EMS states: + orthostatic VS. 20 G R FA, fentanyl 25 mcg x 2 given en route. Fingerstick 270. SOB reported after the fall. Incomplete R BBB on EKG. Coronavirus screen: Vaccine status: Patient reports receiving the 2nd dose of the covid vaccine. Client denies travel out of the [place] in the last 14 days. At this time, the client does not indicate any symptoms associated with coronavirus-19. Ebola Screen: Patient denies travel to an Ebola-affected area in the 21 days before illness onset. Initial Sepsis Screen: Does the patient meet any 2 criteria? RR > 20 per min. No. Patient's initial sepsis screen is negative. Does the patient have a suspected source of infection? No. Patient's initial sepsis screen is negative. Risk Assessment: Do you want to hurt yourself or someone else? Patient reports no desire to harm self or others. Onset of symptoms was June 25, 2021. 14:52 Method Of Arrival: EMS: [facility] ll1 14:52 Acuity: JESUSITA 3 ll1 Historical: - Allergies: 14:51 Codeine (Anaphylaxis); ll1 14:51 FLU VACCINE; ll1 - PMHx: 14:51 CHF; Diabetes - IDDM; neuropathy; Hypertension; COPD; ll1 - Immunization history:: Client reports receiving the 2nd dose of the Covid vaccine. - Social history:: Smoking status: Patient reports the use of cigarette tobacco products, smokes one-half pack cigarettes per day. Screenin:51 Abuse screen: Denies threats or abuse. Nutritional screening: No deficits noted. tw2 Tuberculosis screening: No symptoms or risk factors identified. Fall Risk Secondary diagnosis (15 points) impaired mobility. Assessment: 15:31 Pain: Complains of pain in anterior aspect of left shoulder and dorsal aspect of left ch5 forearm. 17:18 Reassessment: Pt removed C-Collar herself. Informed her the importance of wearing ch5 C-Collar but has refused to wear.. Vital Signs: 14:52 Pulse 84; Resp 22; Temp 98.1(O); Pulse Ox 96% on 2 lpm NC; Weight 81.65 kg; Height 5 ll1 ft. 3 in. (160.02 cm); 14:58 BP 126 / 81; Pulse 81; Resp 20; Pulse Ox 95% on 4 lpm NC; Pain 10/10; ch5 15:29 BP 142 / 53; Pulse 81; Resp 18; Pulse Ox 99% ; Pain 10/10; ch5 14:52 Body Mass Index 31.89 (81.65 kg, 160.02 cm) ll1 ED Course: 14:47 Patient arrived in ED. es2 14:47 Bed in low position. Call light in reach. Side rails up X2. Pulse ox on. NIBP on. tw2 14:51 Arm band placed on Patient placed in an exam room, on a stretcher. ll1 14:56 Triage completed. ll1 14:58 Tree Wyatt, ELSI is Primary Nurse. ch5 15:20 Luis Angel Camacho PA is PHCP. cp 15:20 Sascha Singletary MD is Attending Physician. cp 15:30 No provider procedures requiring assistance completed. Inserted saline lock: 20 gauge ch5 in right forearm, using aseptic technique. 16:05 XRAY Chest (1 view) In Process Unspecified. EDMS 16:05 XRAY Humerus LEFT In Process Unspecified. EDMS 16:05 XRAY Forearm LEFT In Process Unspecified. EDMS 16:26 Head C Spine Cap Wo Con In Process Unspecified. EDMS 18:05 intact. Oxygen administration via nasal cannula \T\ 3L/min. ch5 18:06 Crispin Jenkins MD is Referral Physician. cp Administered Medications: 15:30 Drug: fentaNYL (PF) 25 mcg Route: IVP; Site: right antecubital; ch5 15:45 Drug: fentaNYL (PF) 25 mcg Route: IVP; Site: right forearm; [facility] 16:07 CANCELLED (Other Intervention Used): fentaNYL (PF) 25 mcg IM once; RASS on ADMIN: 5 Combtv4, Very Agttd3, Agttd2, Rstlss1, AlertClm0, Drwsy-1, Lt Sdtn-2, Mod Sdtn-3, Dp Sdtn-4, UnArsble-5 17:52 Drug: HYDROcodone-acetaminophen 10 mg-325 mg 1 tabs Route: PO; es2 Outcome: 18:09 Discharge ordered by . cp 18:23 Discharged to home via wheelchair, with family. [facility] 18:23 Condition: stable 18:23 Discharge instructions given to patient. 18:23 Patient left the ED. [facility] Signatures: Dispatcher [employer] EDMS Luis Angel Camacho PA PA cp Mi Acosta RN RN tw2 Dashawn Alvarez RN RN ll1 Tree Wyatt RN RN ch5 Lor Becerril RN RN es2 Corrections: (The following items were deleted from the chart) 14:56 14:52 Chief complaint: Patient states: Trip and fall over a cord at her daughter's ll1 house today around 1330. Fell into a mirror and the wall. Laid on the ground yelling for help for 1 hour. Lacerations to scalp per EMS. Dressing in place. No known LOC. L arm pain also. EMS states: + orthostatic VS. 20 G R FA, fentanyl 25 mcg x 2 given en route. Fingerstick 270. SOB reported after the fall. ll1
--- NOTE | 2021-06-25 18:10 | EDPHYS ---
Physician Documentation [facility] Name: Nakia Turcios Age: 65 yrs Sex: Female : 1955 Arrival Date: 06/25/2021 Time: 14:47 Bed 19 Private MD: ED Physician Sascha Singletary HPI: 06/25 15:35 This 65 yrs old Female presents to ER via EMS with complaints of Fall Injury. cp 15:35 Details of fall: The patient fell from an upright position, while walking. cp 15:35 Onset: The symptoms/episode began/occurred 1.5 hour(s) ago. cp 15:35 Associated injuries: The patient sustained injury to the head, laceration, of the top cp of head, left upper arm, decreased range of motion, painful injury. Severity of symptoms: in the emergency department the symptoms. 15:35 Patient reports losing balance after tripping while walking at daughter's house. Struck cp head against mirror. Was unable to get up from floor until EMS arrived over an hour after fall. Patient denies LOC. Historical: - Allergies: 14:51 Codeine (Anaphylaxis); ll1 14:51 FLU VACCINE; ll1 - PMHx: 14:51 CHF; Diabetes - IDDM; neuropathy; Hypertension; COPD; ll1 - Immunization history:: Client reports receiving the 2nd dose of the Covid vaccine. - Social history:: Smoking status: Patient reports the use of cigarette tobacco products, smokes one-half pack cigarettes per day. ROS: 15:40 Constitutional: Negative for body aches, chills, fever, poor PO intake. cp 15:40 Neck: Negative for pain with movement, pain at rest, stiffness. cp 15:40 Cardiovascular: Negative for chest pain. 15:40 Respiratory: Negative for cough, shortness of breath, wheezing. 15:40 Abdomen/GI: Negative for abdominal pain, nausea, vomiting, and diarrhea. 15:40 MS/extremity: Positive for injury or acute deformity, decreased range of motion, pain, of the left upper arm. 15:40 Skin: Positive for laceration(s), of the top of head. 15:40 Neuro: Negative for altered mental status, loss of consciousness, syncope. Exam: 15:45 ECG was reviewed by the Attending Physician. cp 15:47 Constitutional: The patient appears in no acute distress, alert, awake, cp non-diaphoretic, non-toxic, well developed, well nourished, uncomfortable. 15:47 Head/Face: Normocephalic, atraumatic. cp 15:47 Eyes: Periorbital structures: appear normal, Pupils: equal, round, and reactive to light and accomodation, Extraocular movements: intact throughout, Conjunctiva: normal, no exudate, no injection, Sclera: no appreciated abnormality, Lids and lashes: appear normal, bilaterally. 15:47 ENT: External ear(s): are unremarkable, Ear canal(s): are normal, clear, TM's: dullness, bilaterally, Nose: is normal, Mouth: Lips: moist, Oral mucosa: moist, Posterior pharynx: Airway: no evidence of obstruction, patent. 15:47 Neck: C-spine: C-collar placed in ED, vertebral tenderness, is not appreciated, crepitus, is not appreciated. 15:47 Chest/axilla: Inspection: normal, Palpation: is normal, no crepitus, no tenderness. 15:47 Cardiovascular: Rate: normal, Rhythm: regular, Edema: is not appreciated, JVD: is not appreciated. 15:47 Respiratory: the patient does not display signs of respiratory distress, Respirations: shallow respirations, that is mild, Breath sounds: decreased breath sounds, that are mild, throughout, stridor, is not appreciated, wheezing: is not appreciated. 15:47 Abdomen/GI: Inspection: abdomen appears normal, Palpation: abdomen is soft and non-tender, in all quadrants. 15:47 Back: pain, that is mild, of the thoracic area. 15:47 Musculoskeletal/extremity: Extremities: grossly normal except: noted in the left upper arm: decreased ROM, pain, ROM: limited passive range of motion due to pain, in the left upper arm, Pulses: noted to be 2+ in the right radial artery and left radial artery, the left upper arm Severe pain noted. 15:47 Neuro: Orientation: to person, place \T\ time. Mentation: is normal, Motor: moves all fours, strength is normal, Sensation: no obvious gross deficits. Vital Signs: 14:52 Pulse 84; Resp 22; Temp 98.1(O); Pulse Ox 96% on 2 lpm NC; Weight 81.65 kg; Height 5 ll1 ft. 3 in. (160.02 cm); 14:58 BP 126 / 81; Pulse 81; Resp 20; Pulse Ox 95% on 4 lpm NC; Pain 10/10; ch5 15:29 BP 142 / 53; Pulse 81; Resp 18; Pulse Ox 99% ; Pain 10/10; ch5 14:52 Body Mass Index 31.89 (81.65 kg, 160.02 cm) ll1 Laceration: 18:00 Wound Repair of 2cm ( 0.8in ) subcutaneous laceration to top of head. Irregularly cp shaped.. Distal neuro/vascular/tendon intact. Wound prep: Simple cleansing by nurse. Skin closed with 3 1-0 Joao using staple gun. Dressed with Bacitracin, 4x4's. Patient tolerated well. MDM: 15:28 Patient medically screened. cp 18:08 Data reviewed: vital signs, nurses notes, lab test result(s), EKG, radiologic studies, cp CT scan, plain films. 18:08 Differential diagnosis: closed head injury, contusion, fracture, laceration, multiple cp trauma. Test interpretation: by ED physician or midlevel provider: ECG, plain radiologic studies. Counseling: I had a detailed discussion with the patient and/or guardian regarding: the historical points, exam findings, and any diagnostic results supporting the discharge/admit diagnosis, lab results, radiology results, the need for outpatient follow up, for definitive care, a orthopedic surgeon, to return to the emergency department if symptoms worsen or persist or if there are any questions or concerns that arise at home. Response to treatment: the patient's symptoms have markedly improved after treatment. ED course: VSS. Pain markedly improved. Left arm placed in immobilizer. Will discharge to home for continued monitoring. 06/25 15:28 Order name: Basic Metabolic Panel; Complete Time: 16:38 cp 06/25 16:38 Interpretation: Normal except: GLUC 230; BUN 39; CRE 1.65; GFR 31. cp 06/25 15:28 Order name: CBC with Diff; Complete Time: 16:38 cp 06/25 16:38 Interpretation: Normal except: HGB 10.4; HCT 31.7; MCV 76.7; MCH 25.2; RDW 15.4; BERENICE% cp 80.2; LYM% 12.7. 06/25 15:28 Order name: LFT's; Complete Time: 16:38 cp 06/25 16:38 Interpretation: Normal except: TP 8.4; GLOB 4.7; A/G 0.8. cp 06/25 15:28 Order name: Magnesium; Complete Time: 16:38 cp 06/25 15:28 Order name: NT PRO-BNP; Complete Time: 16:38 cp 06/25 15:28 Order name: PT-INR; Complete Time: 16:38 cp 06/25 15:28 Order name: Troponin (emerg Dept Use Only); Complete Time: 16:38 cp 06/25 16:39 Interpretation: Reviewed. cp 06/25 15:28 Order name: XRAY Chest (1 view); Complete Time: 17:33 cp 06/25 15:28 Order name: XRAY Humerus LEFT; Complete Time: 17:33 cp 06/25 15:28 Order name: XRAY Forearm LEFT; Complete Time: 17:35 cp 06/25 16:14 Order name: Head C Spine Cap Wo Con; Complete Time: 17:33 EDMS 06/25 15:28 Order name: EKG; Complete Time: 15:28 cp 06/25 15:28 Order name: Cardiac monitoring; Complete Time: 15:54 cp 06/25 15:28 Order name: EKG - Nurse/Tech; Complete Time: 15:39 cp 06/25 15:28 Order name: IV Saline Lock; Complete Time: 15:54 cp 06/25 15:28 Order name: Labs collected and sent; Complete Time: 15:54 cp 06/25 15:28 Order name: O2 Per Protocol; Complete Time: 15:54 cp 06/25 15:28 Order name: O2 Sat Monitoring; Complete Time: 15:54 cp 06/25 16:23 Order name: Shoulder Immobilizer; Complete Time: 16:41 cp EC:45 Rate is 81 beats/min. Rhythm is regular. OR interval is normal. QRS interval is cp prolonged at 136 msec. QT interval is normal. T waves are Inverted in leads aVR, V2, V3, V4. Interpreted by me. Reviewed by me. Administered Medications: 15:30 Drug: fentaNYL (PF) 25 mcg Route: IVP; Site: right antecubital; ch5 15:45 Drug: fentaNYL (PF) 25 mcg Route: IVP; Site: right forearm; ch5 16:07 CANCELLED (Other Intervention Used): fentaNYL (PF) 25 mcg IM once; RASS on ADMIN: ch5 Combtv4, Very Agttd3, Agttd2, Rstlss1, AlertClm0, Drwsy-1, Lt Sdtn-2, Mod Sdtn-3, Dp Sdtn-4, UnArsble-5 17:52 Drug: HYDROcodone-acetaminophen 10 mg-325 mg 1 tabs Route: PO; es2 Disposition: 18:20 Chart complete. cp 06/26 07:02 Co-signature as Attending Physician, Sascha Singletary MD I agree with the assessment and rn plan of care. Attestation: The patient's history, exam findings, diagnostics, and a summary of any interventions or procedures was reviewed in detail with Luis Angel DUDLEY. Disposition Summary: 06/25/21 18:09 Discharge Ordered Location: Home cp Problem: new cp Symptoms: have improved cp Condition: Stable cp Diagnosis - Laceration with foreign body of scalp cp - 2-part nondisplaced fracture of surgical neck of left humerus, initial encounter cp for closed fracture Followup: cp - With: Crispin Jenkins MD - When: 1 - 2 days - Reason: left humerus fracture Followup: cp - With: Private Physician - When: 1 week - Reason: Staple/Suture removal Discharge Instructions: - Discharge Summary Sheet cp - Head Injury, Adult cp - Humerus Fracture Treated With Immobilization cp - Laceration Care, Adult cp Forms: - Medication Reconciliation Form cp - Thank You Letter cp - Antibiotic Education cp - Prescription Opioid Use cp Signatures: Dispatcher [employer] EDMS Sascha Singletary MD MD rn Page, Corey, PA PA cp Dashawn Alvarez RN RN ll1 Tree Wyatt RN RN ch5 Lor Becerril RN RN es2 Corrections: (The following items were deleted from the chart) 06/25 16:07 16:05 fentaNYL (PF) 25 mcg IM once; RASS on ADMIN: Combtv4, Very Agttd3, Agttd2, ch5 Rstlss1, AlertClm0, Drwsy-1, Lt Sdtn-2, Mod Sdtn-3, Dp Sdtn-4, UnArsble-5 ordered. [facility] 16:14 15:28 Head C Spine CAP W Con+CT.RAD.BRZ ordered. EDMS EDMS
[2021-06-25 18:41] VITALS: TEMP 98.1
[2021-06-25 18:43] VITALS: BP 142/53; O2SAT 99
== END 2021-06-25 18:23 | disposition home or self-care (01) ==
LOC: ER 14:45
PROC: 0JQ00ZZ Repair Scalp Subcutaneous Tissue and Fascia, Open Approach (ICD-10-PCS; principal; 2021-06-25)
PROC: 2W39X1Z Immobilization of Left Upper Extremity using Splint (ICD-10-PCS; 2021-06-25)
DX: S01.01XA Laceration without foreign body of scalp, initial encounter (principal); S42.225A 2-part nondisplaced fracture of surgical neck of left humerus, initial encounter for closed fracture; W01.0XXA Fall on same level from slipping, tripping and stumbling without subsequent striking against object, initial encounter; Y92.89 Other specified places as the place of occurrence of the external cause; I10 Essential (primary) hypertension; F17.210 Nicotine dependence, cigarettes, uncomplicated; Z88.5 Allergy status to narcotic agent; Z88.7 Allergy status to serum and vaccine
CPT/HCPCS: 93005; 85025; 80048; 36415; 83735; 85610; 82565; 80076; 84484; 83880; 70450; 71250; 72125; 71045; 73090; 73060; 96374; 99284; 12001; 29105; J3010 ×2

== ENCOUNTER 2021-12-17 13:50 | Emergency (ER) | payer OTHER ==
--- OUTSIDE RECORDS SUMMARY | 2021-12-17 13:54 | XMS REPORT | Continuity of Care Document ---
:1955 Author Organization [facility] t Address [address] [place] [address] Support Name Relationship Address Phone Tam Unavailable 135 09/18 [facility] [place] [address] [place] Unavailable Unavailable [phone] [employer] [address] [place] [address] [place] [address] Care Team Providers Name Role Phone Yunior POSADA Primary Care Physician Paras Attending Clinician Unavailable Doctor Unassigned, Name Attending Clinician Unavailable Chris RENAE Attending Clinician Unavailable Chris Renae DO Attending Clinician Ashley Rowell MD Attending Clinician Ashley ROWELL Attending Clinician Unavailable Karri LEE S Attending Clinician Edinson ZENG Attending Clinician Unavailable ZACHARIAH SCHAEFFER Attending Clinician Unavailable ZACHARIAH SCHAEFFER Admitting Clinician Unavailable Payers Payer Name Policy Type Policy Number Effective Date Expiration Date S [employer] [id number] 2019 2020 00:00:00 SPRING 00:00:00 Problems Condition Condition Condition Status Onset Resolution Last Treating Co mments Source Name Details Category Date Date Treatment Clinician Date Obesity Obesity Disease Active Univers (BMI (BMI 3-12 ity of 30-39.9) 30-39.9) 00:00: [address] Branch Hypoglycem Hypoglycem Disease Active U nivers ia ia 3-11 ity of 00:00: [place] 00 Medical Branch Left knee Left knee Disease Active 2015-09 Uni vers pain pain 0-12 ity of 00:00: [place] [facility] Pneumonia, Pneumonia, Disease Active U nivers organism organism 6-27 ity of unspecifie unspecifie 00:00: [place](486) d(486) 00 Medical Branch COPD COPD Disease Active Univers exacerbati exacerbati 6-23 it y of on on 00:00: [place] [facility] Shoulder Shoulder Disease Active Unive rs pain pain 6-22 ity of 00:00: [place] [facility] Breast Breast Disease Active Univers pain pain 6-22 ity of 00:00: [place] [facility] Diabetes Diabetes Disease Active Unive rs mellitus mellitus ity of [facility] CAD CAD Disease Active Univers (coronary (coronary ity of artery artery [place] disease) disease) Medica l Branch Sleep Sleep Disease Active Univers apnea apnea ity of [facility] Hypertensi Hypertensi Disease Active U nivers on on ity of [facility] A-fib A-fib Disease Active Univers ity of [facility] Allergies, Adverse Reactions, Alerts Allergy Allergy Status Severity Reaction(s) Onset Inactive Treating Comm ents Source Name Type Date Date Clinician FLU DRUG Active Other-Cmnt Univer s VACCINE 3-11 ity of TS 00:00: 2011-08 00 Medical (4 YR+) Branch Flu Propensi Active Other - See Uni vers Vaccine ty to comments 3-11 ity of Ts adverse 00:00: 2011-08 reaction 00 Medical (4 Yr+) s Branch CODEINE DRUG Active Med ITCHING Univers INGREDI 9-21 ity of 00:00: [place] [facility] Codeine Propensi Active Swelling Unive rs ty to 9-21 ity of adverse 00:00: [place] reaction 00 Medical s to Branch drug Social History Social Habit Start Date Stop Date Quantity Comments Source Exposure to Not sure University of SARS-CoV-2 (event) [facility] History of tobacco Cigarette Smoker University of use [facility] Alcohol intake 2021-10-11 2021-10-11 Current University of 00:00:00 00:00:00 non-drinker of [facility] alcohol Branch (finding) Tobacco use and 2015-06-07 2015-06-07 Current user Univers ity of exposure 00:00:00 00:00:00 [facility] Cigarettes smoked 2015-06-07 2015-06-07 Univers ity of current (pack per 00:00:00 00:00:00 [facility] ) - Reported [place] Sex Ass[birth year] At [birth year] Universit y of 00:00:00 00:00:00 [facility] Smoking Status Start Date Stop Date Source Current some day smoker 2015-06-07 00:00:00 [facility] Medications Ordered Filled Start Stop Current Ordering Indication Dosage Frequency Signature Comments Components Source Medication Medication Date Date Medication? Clinician (SIG) Name Name SALONPAS, 2020-0 Yes 1{patch Apply 1 Un basia CAPSAICIN-M 3-12 } Patch to ity of ENTHOL, 14:08: area(s) [place] TOPICAL 22 daily. Medical Indication Branch s: to be worn for 12 hours and off for 12hours tiotropium 2020-0 Yes 18ug Inhale 18 Un basia (SPIRIVA 3-12 mcg daily. ity o f WITH 14:08: [place] HANDIHALER) 22 Medical 18 mcg Branch inhalation divalproex 2020-0 Yes 250mg Take 250 Un basia (DEPAKOTE) 3-12 mg by ity of 250 mg EC 14:08: mouth 2 [place] tablet 22 (two) Medical times Branch daily. insulin 2020-0 Yes inject Univers regular 3-12 under the ity of human 14:08: skin 3 [place] (NOVOLIN R) 22 (three) Medic al 100 unit/mL times [place] injection daily before meals. Indication s: Per sliding scale SERTraline 2020-0 Yes 150mg Take 150 Un basia (ZOLOFT) 3-12 mg by ity of 100 mg 14:08: mouth [place] tablet 22 daily. Medical Branch clopidogrel 2020-0 Yes 75mg Take 75 mg Univers (PLAVIX) 75 3-12 by mouth ity of mg tablet 14:08: daily. [place] 22 [facility] Branch montelukast 2020-0 Yes 10mg Take 10 mg Univers (SINGULAIR) 3-12 by mouth ity of 10 mg 14:08: daily. [place] tablet 22 Medical Branch OXYGEN-AIR 2020-0 Yes 3L/min Inhale 3 U nivers DELIVERY 3-12 L/min ity of SYSTEMS 14:08: daily. [place] MISC 22 Indication Medical s: O2 at Branch 3L/min continuous ly tiZANidine 2020-0 Yes 2mg Take 2 mg Un basia 2 mg 3-12 by mouth 2 ity of capsule 14:08: (two) [place] 22 times Medical daily as Branch needed. furosemide 2020-0 Yes 40mg Take 40 mg U nivers (LASIX) 40 3-12 by mouth ity o f mg tablet 14:08: daily. [place] [address] Medical Branch lisinopril 2020-0 Yes 10mg Take 10 mg U nivers 10 mg 3-12 by mouth ity of tablet 14:08: daily. [place] [address] Medical Branch pregabalin 2020-0 Yes 300mg Take 300 Un basia (LYRICA) 3-12 mg by ity of 300 mg 14:08: mouth 2 [place] capsule 22 (two) Medical times Branch daily. pravastatin 2020-0 Yes 20mg Take 20 mg Univers 20 mg 3-12 by mouth ity of tablet 14:08: at [place] [address] bedtime. Medical Branch insulin 2020-0 Yes 40U inject 40 Unive rs glargine 3-12 Units ity of 100 unit/mL 14:08: under the [place] injection 22 skin at Medical bedtime. Branch albuterol 2020-0 Yes 2.5mg Inhale 2.5 U nivers 2.5 mg /3 3-12 mg every 6 ity of mL (0.083 14:08: (six) [place] %) 22 hours as Medical nebulizer needed for Bran ch solution Wheezing or Shortness of Breath. SALONPAS, 2020-0 Yes 1{patch Apply 1 Un basia CAPSAICIN-M 3-12 } Patch to ity of ENTHOL, 14:08: area(s) [place] TOPICAL 22 daily. Medical Indication Branch s: to be worn for 12 hours and off for 12hours tiotropium 2020-0 Yes 18ug Inhale 18 Un basia (SPIRIVA 3-12 mcg daily. ity o f WITH 14:08: [place] HANDIHALER) 22 Medical 18 mcg Branch inhalation divalproex 2020-0 Yes 250mg Take 250 Un basia (DEPAKOTE) 3-12 mg by ity of 250 mg EC 14:08: mouth 2 [place] tablet 22 (two) Medical times Branch daily. insulin 2020-0 Yes inject Univers regular 3-12 under the ity of human 14:08: skin 3 [place] (NOVOLIN R) 22 (three) Medic al 100 unit/mL times Branch injection daily before meals. Indication s: Per sliding scale SERTraline 2020-0 Yes 150mg Take 150 Un basia (ZOLOFT) 3-12 mg by ity of 100 mg 14:08: mouth [place] tablet 22 daily. Medical Branch clopidogrel 2020-0 Yes 75mg Take 75 mg Univers (PLAVIX) 75 3-12 by mouth ity of mg tablet 14:08: daily. [place] [address] Medical Branch montelukast 2020-0 Yes 10mg Take 10 mg Univers (SINGULAIR) 3-12 by mouth ity of 10 mg 14:08: daily. [facility] 22 Medical Branch OXYGEN-AIR 2020-0 Yes 3L/min Inhale 3 U nivers DELIVERY 3-12 L/min ity of SYSTEMS 14:08: daily. [place] MIS 22 Indication Medical s: O2 at Branch 3L/min continuous ly tiZANidine 2020-0 Yes 2mg Take 2 mg Un basia 2 mg 3-12 by mouth 2 ity of capsule 14:08: (two) [place] [address] times Medical daily as Branch needed. furosemide 2020-0 Yes 40mg Take 40 mg U nivers (LASIX) 40 3-12 by mouth ity o f mg tablet 14:08: daily. [place] [address] Medical Branch lisinopril 2020-0 Yes 10mg Take 10 mg U nivers 10 mg 3-12 by mouth ity of tablet 14:08: daily. [place] [address] Medical Branch pregabalin 2020-0 Yes 300mg Take 300 Un basia (LYRICA) 3-12 mg by ity of 300 mg 14:08: mouth 2 [place] capsule 22 (two) Medical times Branch daily. pravastatin 2020-0 Yes 20mg Take 20 mg Univers 20 mg 3-12 by mouth ity of tablet 14:08: at [place] [address] bedtime. Medical Branch insulin 2020-0 Yes 40U inject 40 Unive rs glargine 3-12 Units ity of 100 unit/mL 14:08: under the [place] injection 22 skin at Medical bedtime. Branch albuterol 2020-0 Yes 2.5mg Inhale 2.5 U nivers 2.5 mg /3 3-12 mg every 6 ity of mL (0.083 14:08: (six) [facility]) 22 hours as Medical nebulizer needed for Bran ch solution Wheezing or Shortness of Breath. SALONPAS, 2020-0 Yes 1{patch Apply 1 Un basia CAPSAICIN-M 3-12 } Patch to ity of ENTHOL, 14:08: area(s) [place] TOPICAL 22 daily. Medical Indication Branch s: to be worn for 12 hours and off for 12hours tiotropium 2020-0 Yes 18ug Inhale 18 Un basia (SPIRIVA 3-12 mcg daily. ity o f WITH 14:08: [place] HANDIHALER) 22 Medical 18 mcg Branch inhalation divalproex 2020-0 Yes 250mg Take 250 Un basia (DEPAKOTE) 3-12 mg by ity of 250 mg EC 14:08: mouth 2 [place] tablet 22 (two) Medical times Branch daily. insulin 2020-0 Yes inject Univers regular 3-12 under the ity of human 14:08: skin 3 [place] (NOVOLIN R) 22 (three) Medic al 100 unit/mL times Branch injection daily before meals. Indication s: Per sliding scale SERTraline 2020-0 Yes 150mg Take 150 Un basia (ZOLOFT) 3-12 mg by ity of 100 mg 14:08: mouth [place] tablet 22 daily. Medical Branch clopidogrel 2020-0 Yes 75mg Take 75 mg Univers (PLAVIX) 75 3-12 by mouth ity of mg tablet 14:08: daily. [place] [address] Medical Branch montelukast 2020-0 Yes 10mg Take 10 mg Univers (SINGULAIR) 3-12 by mouth ity of 10 mg 14:08: daily. [place] tablet 22 Medical Branch OXYGEN-AIR 2020-0 Yes 3L/min Inhale 3 U nivers DELIVERY 3-12 L/min ity of SYSTEMS 14:08: daily. [place] MISC 22 Indication Medical s: O2 at Branch 3L/min continuous ly tiZANidine 2020-0 Yes 2mg Take 2 mg Un basia 2 mg 3-12 by mouth 2 ity of capsule 14:08: (two) [place] 22 times Medical daily as Branch needed. furosemide 2020-0 Yes 40mg Take 40 mg U nivers (LASIX) 40 3-12 by mouth ity o f mg tablet 14:08: daily. [place] [address] Medical Branch lisinopril 2020-0 Yes 10mg Take 10 mg U nivers 10 mg 3-12 by mouth ity of tablet 14:08: daily. [place] [address] Medical Branch pregabalin 2020-0 Yes 300mg Take 300 Un basia (LYRICA) 3-12 mg by ity of 300 mg 14:08: mouth 2 [place] capsule 22 (two) Medical times Branch daily. pravastatin 2020-0 Yes 20mg Take 20 mg Univers 20 mg 3-12 by mouth ity of tablet 14:08: at [place] [address] bedtime. Medical Branch insulin 2020-0 Yes 40U inject 40 Unive rs glargine 3-12 Units ity of 100 unit/mL 14:08: under the [place] injection 22 skin at Medical bedtime. Branch albuterol 2020-0 Yes 2.5mg Inhale 2.5 U nivers 2.5 mg /3 3-12 mg every 6 ity of mL (0.083 14:08: (six) [place] %) 22 hours as Medical nebulizer needed for Bran ch solution Wheezing or Shortness of Breath. SALONPAS, 2020-0 Yes 1{patch Apply 1 Un basia CAPSAICIN-M 3-12 } Patch to ity of ENTHOL, 14:08: area(s) [place] TOPICAL 22 daily. Medical Indication Branch s: to be worn for 12 hours and off for 12hours tiotropium 2020-0 Yes 18ug Inhale 18 Un basia (SPIRIVA 3-12 mcg daily. ity o f WITH 14:08: [place] HANDIHALER) 22 Medical 18 mcg Branch inhalation divalproex 2020-0 Yes 250mg Take 250 Un basia (DEPAKOTE) 3-12 mg by ity of 250 mg EC 14:08: mouth 2 [place] tablet 22 (two) Medical times Branch daily. insulin 2020-0 Yes inject Univers regular 3-12 under the ity of human 14:08: skin 3 [place] (NOVOLIN R) 22 (three) Medic al 100 unit/mL times Branch injection daily before meals. Indication s: Per sliding scale SERTraline 2020-0 Yes 150mg Take 150 Un basia (ZOLOFT) 3-12 mg by ity of 100 mg 14:08: mouth [place] tablet 22 daily. Medical Branch clopidogrel 2020-0 Yes 75mg Take 75 mg Univers (PLAVIX) 75 3-12 by mouth ity of mg tablet 14:08: daily. [place] [address] Medical Branch montelukast 2020-0 Yes 10mg Take 10 mg Univers (SINGULAIR) 3-12 by mouth ity of 10 mg 14:08: daily. [place] tablet 22 Medical Branch OXYGEN-AIR 2020-0 Yes 3L/min Inhale 3 U nivers DELIVERY 3-12 L/min ity of SYSTEMS 14:08: daily. [place] MIS 22 Indication Medical s: O2 at Branch 3L/min continuous ly tiZANidine 2020-0 Yes 2mg Take 2 mg Un basia 2 mg 3-12 by mouth 2 ity of capsule 14:08: (two) [place] 22 times Medical daily as Branch needed. furosemide 2020-0 Yes 40mg Take 40 mg U nivers (LASIX) 40 3-12 by mouth ity o f mg tablet 14:08: daily. [place] [address] Medical Branch lisinopril 2020-0 Yes 10mg Take 10 mg U nivers 10 mg 3-12 by mouth ity of tablet 14:08: daily. [place] [address] Medical Branch pregabalin 2020-0 Yes 300mg Take 300 Un basia (LYRICA) 3-12 mg by ity of 300 mg 14:08: mouth 2 [place] capsule 22 (two) Medical times Branch daily. pravastatin 2020-0 Yes 20mg Take 20 mg Univers 20 mg 3-12 by mouth ity of tablet 14:08: at [place] [address] bedtime. Medical Branch insulin 2020-0 Yes 40U inject 40 Unive rs glargine 3-12 Units ity of 100 unit/mL 14:08: under the [place] injection 22 skin at Medical bedtime. Branch albuterol 2020-0 Yes 2.5mg Inhale 2.5 U nivers 2.5 mg /3 3-12 mg every 6 ity of mL (0.083 14:08: (six) [place] %) 22 hours as Medical nebulizer needed for Bran ch solution Wheezing or Shortness of Breath. SALONPAS, 2020-0 Yes 1{patch Apply 1 Un basia CAPSAICIN-M 3-12 } Patch to ity of ENTHOL, 14:08: area(s) [place] TOPICAL 22 daily. Medical Indication Branch s: to be worn for 12 hours and off for 12hours tiotropium 2020-0 Yes 18ug Inhale 18 Un basia (SPIRIVA 3-12 mcg daily. ity o f WITH 14:08: [place] HANDIHALER) 22 Medical 18 mcg Branch inhalation divalproex 2020-0 Yes 250mg Take 250 Un basia (DEPAKOTE) 3-12 mg by ity of 250 mg EC 14:08: mouth 2 [place] tablet 22 (two) Medical times Branch daily. insulin 2020-0 Yes inject Univers regular 3-12 under the ity of human 14:08: skin 3 [place] (NOVOLIN R) 22 (three) Medic al 100 unit/mL times Branch injection daily before meals. Indication s: Per sliding scale SERTraline 2020-0 Yes 150mg Take 150 Un basia (ZOLOFT) 3-12 mg by ity of 100 mg 14:08: mouth [place] tablet 22 daily. Medical Branch clopidogrel 2020-0 Yes 75mg Take 75 mg Univers (PLAVIX) 75 3-12 by mouth ity of mg tablet 14:08: daily. [address] Branch montelukast 2020-0 Yes 10mg Take 10 mg Univers (SINGULAIR) 3-12 by mouth ity of 10 mg 14:08: daily. [place] [address] Medical Branch OXYGEN-AIR 2020-0 Yes 3L/min Inhale 3 U nivers DELIVERY 3-12 L/min ity of SYSTEMS 14:08: daily. [place] MIS 22 Indication Medical s: O2 at Branch 3L/min continuous ly tiZANidine 2020-0 Yes 2mg Take 2 mg Un basia 2 mg 3-12 by mouth 2 ity of capsule 14:08: (two) [place] [address] times Medical daily as Branch needed. furosemide 2020-0 Yes 40mg Take 40 mg U nivers (LASIX) 40 3-12 by mouth ity o f mg tablet 14:08: daily. [address] Branch lisinopril 2020-0 Yes 10mg Take 10 mg U nivers 10 mg 3-12 by mouth ity of tablet 14:08: daily. [address] Branch pregabalin 2020-0 Yes 300mg Take 300 Un basia (LYRICA) 3-12 mg by ity of 300 mg 14:08: mouth 2 [place] capsule 22 (two) Medical times [place] daily. pravastatin 2020-0 Yes 20mg Take 20 mg Univers 20 mg 3-12 by mouth ity of tablet 14:08: at [place] [address] bedtime. Medical Branch insulin 2020-0 Yes 40U inject 40 Unive rs glargine 3-12 Units ity of 100 unit/mL 14:08: under the [place] injection 22 skin at Medical bedtime. Branch albuterol 2020-0 Yes 2.5mg Inhale 2.5 U nivers 2.5 mg /3 3-12 mg every 6 ity of mL (0.083 14:08: (six) [place] ) 22 hours as Medical nebulizer needed for Bran ch solution Wheezing or Shortness of Breath. benzocaine- 2020-0 Yes [id number] 1{lozen Take 1 Univers menthol 3-12 ge} Lozenge by ity of (CEPACOL 00:00: mouth [place] SORE 00 every 4 Medical THROAT, (four) Branch JAMESON-MEN,) hours as lozenge needed for Sore throat. benzocaine- 2020-0 Yes [id number] 1{lozen Take 1 Univers menthol 3-12 ge} Lozenge by ity of (CEPACOL 00:00: mouth [place] SORE 00 every 4 Medical THROAT, (four) Branch JAMESON-MEN,) hours as lozenge needed for Sore throat. benzocaine- 2020-0 Yes [id number] 1{lozen Take 1 Univers menthol 3-12 ge} Lozenge by ity of (CEPACOL 00:00: mouth [place] SORE 00 every 4 Medical THROAT, (four) Branch JAMESON-MEN,) hours as lozenge needed for Sore throat. benzocaine- 2020-0 Yes [id number] 1{lozen Take 1 Univers menthol 3-12 ge} Lozenge by ity of (CEPACOL 00:00: mouth [place] SORE 00 every 4 Medical THROAT, (four) Branch JAMESON-MEN,) hours as lozenge needed for Sore throat. benzocaine- 2020-0 Yes [id number] 1{lozen Take 1 Univers menthol 3-12 ge} Lozenge by ity of (CEPACOL 00:00: mouth [place] SORE 00 every 4 Medical THROAT, (four) Branch JAMESON-MEN,) hours as lozenge needed for Sore throat. Vital Signs Vital Name Observation Time Observation Value Comments Source Systolic blood 2021-10-11 20:10:00 147 mm[Hg] Univer sity of pressure [facility] Diastolic blood 2021-10-11 20:10:00 48 mm[Hg] [facility] Heart rate 2021-10-11 20:10:00 77 /min [facility] Respiratory rate 2021-10-11 20:10:00 18 /min [facility] Oxygen saturation in 2021-10-11 20:10:00 94 /min [facility] Arterial blood by [facility] Pulse oximetry [place] Body temperature 2021-10-11 18:28:00 36.61 Roberta [facility] Body weight 2021-10-11 18:28:00 81.647 kg [facility] BMI 2021-10-11 18:28:00 31.89 kg/m2 [facility] Body height 2021-08-19 14:07:00 160 cm [facility] Body weight 2021-08-19 14:07:00 81.647 kg [facility] BMI 2021-08-19 14:07:00 31.89 kg/m2 [facility] Procedures Procedure Date / Time Performing Clinician Source Performed EXTERNAL PROVIDER 2021-10-24 06:01:00 Doctor Unassigned, No [facility] RECORDS Name Medical Branch ABORH CONFIRMATION (LAB 2021-10-11 19:31:00 Eduarda Renae [facility] ONLY) Medical Branch COMP. METABOLIC PANEL 2021-10-11 18:47:00 Eduarda Renae [facility] ([id number]) Medical [place] CBC WITH DIFF 2021-10-11 18:47:00 Eduarda Renae [facility] HB ABO GROUPING 2021-10-11 18:47:00 Eduarda Renae [facility] COVID-19 (ID NOW RAPID 2021-10-11 18:47:00 Eduarda Renae [facility] TESTING) Medical Branch CONSENT/REFUSAL FOR 2021-10-11 18:16:56 Doctor Unassigned, No [facility] DIAGNOSIS AND TREATMENT Name Medical [place] Encounters Start End Encounter Admission Attending Care Care Encounter Source Date/Time Date/Time Type Type Clinicians Facility Department ID 2021-10-12 Outpatient Crain, STLMLC STLMLC [id number] [address] 11:59[facility]42 [facility] [id number] [facility] 2021-10-12 Outpatient CrainVERÓNICA rogers [facility] [id number] 11:59:23 Edmund [facility] 2021-10-12 Outpatient VERÓNICA Crain [facility] [id number] 11:58:52 Edmund [facility] 2021-10-24 2021-10-24 Orders Doctor ELIZABETH [id number] Univers 00:00:00 00:00:00 Only Unassigned, FLORY [id number] ity of [place] [facility] [id number] Pete as [id number] [address] 2021-10-11 2021-10-11 Emergency [facility] [id number] Univers 12:29:00 15:20:[address] [facility] 2021-10-11 2021-10-11 Emergency Oc [facility] [id number] Univers 12:29:00 15:20:00 Eduarda JENSEN [id number] ity of [place] [id number] [place] [facility] [id number] [facility] 084 [place] 2021-08-29 2021-08-29 Telephone [facility] [id number] Univers 00:00:00 00:00:00 Ally [facility] [id number] it y of SURGICAL [id number] [place] as SPECIALTI [id number] Nd vicky PRIEST [address] [place] [address] 2021-08-22 2021-08-22 Telephone [facility] [id number] Univers 00:00:00 00:00:00 Ally Calixar [id number] it y of [place] [id number] [place] as SHARRON?BLEA [id number] Nd vicky TOVAR [address] [place] MEDICAL OFFICE BUILDING 2021-08-19 2021-08-19 Outpatient R ALFRED [facility] [id number] Univers 08:00:00 08:40:08 ALLY [facility] 2021-08-19 2021-08-19 Office Hari Zeng [facility] [id number] [id number] Univers 08:00:53 08:15:53 Visit Ally Rowell [facility] [id number] [place] [id number] [place] as SHARRON?BLEA [phone] Nd dical [address] MEDICAL OFFICE BUILDING 2021-08-05 2021-08-05 Outpatient Lila ALFRED [facility] [id number] Univers 10:30:00 14:33:30 ALLY [facility] 2021-02-01 2021-02-01 Outpatient Lila ZENG [facility] [id number] Univers 10:11:59 23:59:00 [facility] 2020-12-28 2020-12-28 Outpatient Lila ZENG [facility] [id number] Univers 10:45:00 10:45:00 [facility] 2020-12-10 2020-12-10 [facility] [id number] [facility] 2020-12-09 2020-12-09 Emergency X MAKSIM, Leana [facility] ERT [id number] Univers 09:24:00 13:41:00 [facility] 2020-07-13 2020-07-13 Out[facility] [id number] [facility] 2020-07-12 2020-07-12 [facility] [id number] [facility] Results Test Description Test Time Test Comments Results Result Comments Source ABORH Confirmation (Lab Only) 2021-10-11 20:13:57 Test Item Value Reference Range Interpretation Comme nts ABO & RH (test code = 20) AB Positive Pe rformed at [facility] Laboratory Services - ADC Blood [address] [place] [id number] Free: [phone] A No. [id number] [facility] and Screen - ONCE [id number] 19:34:48 Test Item Value Reference Range Interpretation Comments ABO & RH (test AB Positive Performed at [facility] code = 20) Laboratory Serv [facility] Blood Bank1 [address] [place] [address] Free: [phone] A No. [id number] IAT (test code = Negative Performed a t [facility] 1185) Laboratory Serv [facility] Blood Bank1 [address] [place], [place] [address]Toll Free: [phone] A No. [id number] [facility] ([id number])2021-10-11 19:32:57 Test Item Value Reference Range Interpretation Comments NA (test code = 136 mmol/L 135-145 [id number]) K (test code = 4.2 mmol/L 3.5-5.0 4998453038) CL (test code = 97 mmol/L 98-108 L 9151272855) CO2 TOTAL (test code = 29 mmol/L 23-31 9265846117) AGAP (test code = 2-16 [id number]) BUN (test code = 34 mg/dL 7-23 H [id number]) GLUCOSE (test code = 149 mg/dL 70-110 H [id number]) CREATININE (test code = 1.48 mg/dL 0.50-1.04 H [id number]) TOTAL BILI (test code = 0.3 mg/dL 0.1-1.8 0486265792) CALCIUM (test code = 8.0 mg/dL 8.6-10.6 L [id number]) T PROTEIN (test code = 7.1 g/dL 6.3-8.2 4781610469) ALBUMIN (test code = 4.1 g/dL 3.5-5.0 5133196517) ALK PHOS (test code = 52 U/L 34-122 [id number]) ALTv (test code = 10 U/L 5-35 1742-6) AST(SGOT) (test code = 18 U/L 13-40 7007031480) eGFR (test code = mL/min/1.73m2 0106156374) CAMILLE (test code = CAMILLE) Association of Glomerular Filtration Rate (GFR) and Staging of Kidney Disease* + --+ --+ ------+| GFR (mL/min/1.73 m2) ?| With Kidney Damage ?| ?Without Kidney Damage+ --------+ --------+ +| ?>90 ?| ?Stage one ?| ? Normal ?+ ---+ ---+ -------+| ?60-89 ?| ?Stage two ?| ? Decreased GFR ? + --+ --+ ------+| ?30-59 ?| ?Stage three ?| ? Stage three ? + --+ --+ ------+| ?15-29 ?| ?Stage four ? | ? Stage four ?+ ---+ ---+ -------+| ?<15 (or dialysis) ? ?| ?Stage five ? | ? Stage five ?+ ---+ ---+ -------+ *Each stage assumes the associated GFR level has been in effect for at least three months. ?Stages 1 to 5, with or without kidney disease, indicate chronic kidney disease. Notes: Determination of stages one and two (with eGFR >59mL/min/1.73 m2) requires estimation of kidney damage for at least three months as defined by structural or functional abnormalities of the kidney, manifested by either:Pathological abnormalities or Markers of kidney damage (including abnormalities in the composition of the blood or urine or abnormalities in imaging tests). Lab Interpretation Abnormal (test code = 08502-9) [facility] WITH [id number] 19:00:51 Test Item Value Reference Range Interpretation Comments WBC (test code = See_Comment [Automated 3687-2) message] The sy stem which generated this result transmitted reference range : 4.30 - 11.10 10*3/?L. The reference range was not used to interpret this result as normal/abnormal . RBC (test code = See_Comment L [Automated 020-2) message] The sy stem which generated this result transmitted reference range : 3.93 - 5.25 10*6/?L. The reference range was not used to interpret this result as normal/abnormal . HGB (test code = 7.4 g/dL 11.6-15.0 L 718-7) HCT (test code = 24.7 % 35.7-45.2 L 4544-3) MCV (test code = 82.3 fL 80.6-95.5 787-2) MCH (test code = 24.7 pg 25.9-32.8 L 785-6) MCHC (test code = 30.0 g/dL 31.6-35.1 L 786-4) RDW-SD (test code = 46.5 fL 39.0-49.9 02299-8) RDW-CV (test code = 15.9 % 12.0-15.5 H 788-0) PLT (test code = See_Comment [Automated 777-3) message] The sy stem which generated this result transmitted reference range : 166 - 358 10*3/ ?L. The reference r ora was not used to interpret this result as normal/abnormal . MPV (test code = 10.7 fL 9.5-12.9 87640-0) NRBC/100 WBC (test See_Comment [Automat ed code = 1629789271) message] The system which generated this result transmitted reference range : 0.0 - 10.0 /100 WBCs. The refer ence range was not u sed to interpret th is result as normal/abnormal . NRBC x10^3 (test code <0.01 See_Comment [Auto mated = [id number]) message] The s ystem which generated this result transmitted reference range : 10*3/?L. The reference range was not used to interpret this result as normal/abnormal . GRAN MAT (NEUT) % 65.4 % (test code = 770-8) IMM GRAN % (test code 0.30 % = 2037908627) LYMPH % (test code = 25.1 % 736-9) MONO % (test code = 6.1 % 5905-5) EOS % (test code = 2.7 % 713-8) BASO % (test code = 0.4 % 706-2) GRAN MAT x10^3(ANC) 4.86 10*3/uL 1.88-7.09 (test code = 2595070710) IMM GRAN x10^3 (test <0.03 0.00-0.06 code = 4988029943) LYMPH x10^3 (test code 1.86 10*3/uL 1.32-3.29 = 731-0) MONO x10^3 (test code 0.45 10*3/uL 0.33-0.92 = 742-7) EOS x10^3 (test code = 0.20 10*3/uL 0.03-0.39 711-2) BASO x10^3 (test code 0.03 10*3/uL 0.01-0.07 = 704-7) Lab Interpretation Abnormal (test code = 47682-0) [facility]"
[2021-12-17] MEDS ORDERED: FENTANYL CITR 100 MCG/2 ML ONE (14:26)
[2021-12-17] MEDS ORDERED: ONDANSETRON 4 MG/2 ML VIAL ONE (14:26)
[2021-12-17] MEDS ORDERED: TETANUS & DIPHTHERIA TOX,ADULT 0.5 ML VIAL ONE (14:27)
[2021-12-17] MEDS ORDERED: MUPIROCIN 2% OINT 22GM TUBE TOP ONE (14:27)
[2021-12-17 15:02] LABS: Absolute Lymphocytes (CBC) 1.3 K/uL (0.7-4.9); Hematocrit 25.4 % (36.0-45.0); Lymphocytes % 10.5 % (15.3-44.8); MPV 8.4 fL (7.6-11.3); RBC Red Blood Cell Count 3.64 M/uL (3.86-4.86)
[2021-12-17 15:11] LABS: Albumin 3.2 g/dL (3.4-5.0); Bilirubin Total 0.4 mg/dL (0.2-1.0); Potassium 3.3 mmol/L (3.5-5.1); Protein, Total 8.3 g/dL (6.4-8.2)
--- NOTE | 2021-12-17 15:18 | RAD REPORT ---
EXAM DESCRIPTION: RAD - Foot Left 3 View - 12/17/2021 2:52 pm CLINICAL HISTORY: PAIN, diabetic ulcer on the first toe COMPARISON: Foot Left 3 View dated 01/08/2019 FINDINGS: No fracture, dislocation or periosteal reaction. No acute or destructive bony process. De generative changes are present at the first toe. There is joint space narrowing at the first MTP join t with by a minimal lateral subluxation of the first proximal phalanx. Significant lateral angulation is present at the IP joint of the first toe. Osteomyelitis destructive changes are not currently see n. Degenerative change present at the IP joints of the second- fifth toes. Minimal plantar spur is prese nt. No air or foreign body in the soft tissues. IMPRESSION: Soft tissues around the first toe are edematous but no air or foreign body seen. Prominent degenerative change at the first MTP joint and first toe but no osteomyelitis bone destruct jim changes currently identified.
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
[2021-12-17] MEDS ORDERED: levoFLOXacin 250 MG TAB ONE (15:51)
[2021-12-17] MEDS ORDERED: SMZ./TMP. 800/160 MG TABLET ONE (15:51)
[2021-12-17 17:01] VITALS: TEMP 98.2
[2021-12-17 17:02] VITALS: BP 139/49; O2SAT 98
== END 2021-12-17 16:52 | disposition home or self-care (01) ==
LOC: ER 13:50
DX: L03.116 Cellulitis of left lower limb (principal); T21.23XA Burn of second degree of upper back, initial encounter; T31.0 Burns involving less than 10% of body surface; X16.XXXA Contact with hot heating appliances, radiators and pipes, initial encounter; E11.9 Type 2 diabetes mellitus without complications; I10 Essential (primary) hypertension; J44.9 Chronic obstructive pulmonary disease, unspecified; I50.9 Heart failure, unspecified; F17.210 Nicotine dependence, cigarettes, uncomplicated; Z23 Encounter for immunization; Z88.5 Allergy status to narcotic agent; Z88.7 Allergy status to serum and vaccine; Z20.822 Contact with and (suspected) exposure to COVID-19
CPT/HCPCS: 87040 ×2; 85025; 36415; 83605; 80053; 84145; 73630; 90471; 90714; 96375; 96374; 99284; U0003; J3010; J2405

== ENCOUNTER 2022-07-21 14:20 | Inpatient (IN) | payer OTHER ==
--- OUTSIDE RECORDS SUMMARY | 2022-07-21 14:25 | XMS REPORT | Continuity of Care Document ---
:1955 Author Organization [facility] t Address [address] [place] [address] Support Name Relationship Address Phone JENNI GILL DTR Unavailable [phone] JENNI Unavailable Unavailable 2 Unavailable Unavailable Unavailable Nakia Turcios Unavailable 135 09/18 [facility] [place] [address] COURTNEY WESLEY V [address] [place] [address] JENNI [place] [address] Care Team Providers Name Role Phone MEDINA CANTRELL Primary Care Physician Unavailable Edmund Crain Attending Clinician Unavailable MARIELLA BOYCE Attending Clinician Unavailable Doctor Unassigned, [place] Attending Clinician Unavailable EDUARDA RENAE Attending Clinician Unavailable Eduarda Renae DO Attending Clinician Ally Simon MD Attending Clinician ALLY SIMON Attending Clinician Unavailable John Wilkinson Attending Clinician JOHN BREWER Attending Clinician Unavailable MARIAH TUCKER Attending Clinician Unavailable Mariah Tucker MD Attending Clinician Jo-Ann Kunz Attending Clinician Radiology Attending Clinician Unavailable Leana SCHAEFFER Attending Clinician Unavailable Leana Woods Attending Clinician NÉSTOR MACDONALD Attending Clinician Unavailable NÉSTOR MACDONALD Attending Clinician Unavailable RADIOLOGY Attending Clinician Unavailable Flakita Saha RN Attending Clinician Marilin Bergeron MD Attending Clinician Irene POSADA, Trupti Attending Clinician MARILIN BERGERON Attending Clinician Unavailable EDUARDA RENAE Admitting Clinician Unavailable MARIAH TUCKER Admitting Clinician Unavailable Leana SCHAEFFER Admitting Clinician Unavailable Irene POSADA, Trupti Admitting Clinician MARILIN BERGERON Admitting Clinician Unavailable Payers Payer Name Policy Type Policy Number Effective Date Expiration Date S reena [employer] mPort [id number] 2019spring 00:00:00 [facility] [id number] 2020 PLUS 00:00:00 MEDICAID [place] [id number] 2016 [place] 00:00:00 MEDICARE PART A [id number] 2019 \\T\\ B 00:00:00 [facility] DUAL [id number] 2022 ACCESS OPEN 00:00:00 (PPO D-SNP) [id number] Sp [place] Medicare 00:00:00 [id number] [place] Medicare 00:00:00 [facility] [id number] 2019 Common Sp [place] Medicare 00:00:00 - [facility] Problems Condition Condition Condition Status Onset Resolution Last Treating Co mments Source Name Details Category Date Date Treatment Clinician Date Chronic Chronic Disease Active 2021-09 Tracey obstructiv obstructiv 0-10 Se ybold e e 00:00: - pulmonary pulmonary 00 Exte rna disease disease l with acute with acute exacerbati exacerbati on on Seasonal Seasonal Disease Active 2021-09 Kelse y allergic allergic 0-10 Seybol d rhinitis rhinitis 00:00: - due to due to 00 Externa pollen pollen l Type 2 Type 2 Disease Active 2021-09 Tracey diabetes diabetes 0-10 Seybol d mellitus mellitus 00:00: - with with 00 Externa hyperlipid hyperlipid l emia emia Chronic Chronic Disease Active 2021-09 Tracey diastolic diastolic 0-10 Seyb old congestive congestive 00:00: - heart heart 00 Externa failure failure l Current Current Disease Active 2021-09 Tracey mild mild 0-10 Seybold episode of episode of 00:00: - major major 00 Externa depressive depressive l disorder disorder without without prior prior episode episode Other Other Disease Active 2021-09 Tracey age-relate age-relate 0-10 Se ybold d cataract d cataract 00:00: - 00 Externa l Vision Vision Disease Active 2021-09 Tracey disturbanc disturbanc 0-10 Se ybold e e 00:00: - 00 Externa l Chronic Chronic Disease Active 2021-09 Tracey bilateral bilateral 0-10 Seyb old low back low back 00:00: - pain pain 00 Externa without without l sciatica sciatica Gastroesop Gastroesop Disease Active 2021-09 K elsey hageal hageal 0-10 Seybold reflux reflux 00:00: - disease disease 00 Externa without without l esophagiti esophagiti s s Primary Primary Disease Active 2021-09 Tracey insomnia insomnia 0-10 Seybol d 00:00: - 00 Externa l Fall Fall Disease Active 2021-09 Tracey 0-10 Seybold 00:00: - 00 Externa l Obesity Obesity Disease Active Univers (BMI (BMI 3-12 ity of 30-39.9) 30-39.9) 00:00: Medical Branch Hypoglycem Hypoglycem Disease Active U nivers ia ia 3-11 ity of 00:: Medical Branch Left knee Left knee Disease Active 2015-09 Uni vers pain pain 0-12 ity of 00:: Medical Branch Pneumonia, Pneumonia, Disease Active U nivers organism organism 6-27 ity of unspecifie unspecifie 00:00: [place](486) d(486) 00 Medical Branch COPD COPD Disease Active Univers exacerbati exacerbati 6-23 it y of on on 00:00: Medical Branch Shoulder Shoulder Disease Active Unive rs pain pain 6-22 ity of 00:00: Medical Branch Breast Breast Disease Active Univers pain pain 6-22 ity of 00:00: Medical Branch [id number] Chronic Problem Active Commo n systolic Spirit heart - [facility] failure [facility] [id number] Diabetic Problem Active Commo n polyneurop Spirit athy - [facility] associated [facility] with type [facility] 1 diabetes Medica l mellitus Center [id number] Depression Problem Active Co mmon with Spirit anxiety - [facility] [id number] Essential Problem Active Comm on hypertensi Spirit on - [facility] [id number] Chronic Problem Active Common obstructiv Spirit e - [facility] pulmonary [facility] disease, [facility] unspecifie Medica l d COPD Center type [id number] Type 1 Problem [place] Com[place] n [id number] diabetes Spirit mellitus - [facility]I with St hyperglyce [facility] [id number] Tobacco Problem Active Commo n use Spirit disorder - [facility] [id number] Mixed Problem Active Common hyperlipid Spirit emia - [facility] [id number] Non-season Problem Active Com mon al Spirit allergic - [facility] rhinitis, St unspecifie [facility] d trigger [facility] Diabetes Diabetes Disease Active Unive rs [facility] CAD CAD Disease Active Univers (coronary (coronary ity of artery artery [place] disease) disease) Medica l [place] Sleep Sleep Disease Active Univers apnea ap[facility] Hypertensi Hypertensi Disease Active U nivers on on [facility] A-fib A-fib Disease Active Univers [facility] Allergies, Adverse Reactions, Alerts Allergy Allergy Status Severity Reaction(s) Onset Inactive Treating Comm ents Source Name Type Date Date Clinician Codeine Propensi Active 2021-09 Tracey ty to 0-10 Seybold adverse 00:00: - reaction 00 Externa s l FLU DRUG Active Other-Cmnt Univer s VACCINE 3-11 ity of TS 00:00: [place] 2011-08 00 Medical (4 YR+) Branch Flu Propensi Active Other - See Uni vers Vaccine ty to comments 3-11 ity of Ts adverse 00:00: 2011-08 reaction 00 Medical (4 Yr+) s Branch CODEINE DRUG Active Med ITCHING Univers INGREDI - ity of 00:00: [place] 00 Medical Branch Codeine Propensi Active Swelling Unive rs ty to 06-07 ity of adverse 00:00: [place] reaction 00 Medical s to Branch drug Social History Social Habit Start Date Stop Date Quantity Comments Source Exposure to Not sure [facility] SARS-CoV-2 (event) [facility] History of tobacco Cigarette Smoker Tracey Sterling - use External Tobacco use and 2022-06-26 2022-06-26 Smokeless Tracey vasques - exposure 00:00:00 00:00:00 tobacco non-user External Alcohol intake 2022-06-26 2022-06-26 Lifetime Tracey Block bold - 00:00:00 00:00:00 non-drinker External (finding) Cigarettes smoked 2015-06-07 2015-06-07 Univers ity of current (pack per 00:00:00 00:00:00 ) - Reported Branch Sex [birth year] Tracey vasques - 00:00:00 00:00:00 External Smoking Status Start Date Stop Date Source Smokes tobacco daily 2022-06-26 00:00:00 Tracey Sterling - External Current some day smoker 2015-06-07 00:00:00 [facility] Medications Ordered Filled Start Stop Current Ordering Indication Dosage Frequency Signature Comments Components Source Medication Medication Date Date Medication? Clinician (SIG) Name Name Methylpredn 2021-09- No [id number] 40mg K elsey isolone 0-10 10-10 Seybold Sodium 18:15: 16:46 - (SOLU-MEDRO 00 :00 Externa L) 40 mg l Methylpredn 2021-09- No [id number] 40mg 40 mg, Tracey isolone 0-10 10-10 intramuscu Seybo ld Sodium 18:15: 16:46 lar, ONCE, - (SOLU-MEDRO 00 :00 On Mon Configuration Engineer a L) 40 mg 06/26/22 l at 1315, For 1 dose Methylpredn 2021-09- No [id number] 40mg K elsey isolone 0-10 10-10 Seybold Acetate 16:45: 18:00 - (DEPO-MEDRO 00 :55 Externa L) 40 mg/mL l Furosemide 2021-09- No 40mg Take 40 mg Tracey 40 MG oral 0-10 10-10 by mouth Seyb old Tablet 11:53: 00:00 daily - 42 :00 Externa l [place]-3 2022-1 2022- No 1000mg Take 1,000 K elsey Fatty Acids 0-10 10-10 mg by Seybol d (Fish Oil) 11:52: 00:00 mouth - 1000 MG 41 :00 daily Externa oral l Capsule Pantoprazol 2021-09 No 40mg Take 40 mg Tracey e Sodium 40 0-10 10-10 by mouth Sey bold MG oral 11:52: 00:00 daily - Pack 19 :00 Externa l Potassium 2021-09 Yes Take by Kelse y (POTASSIMIN 0-10 mouth Seybold OR) 11:13: - 42 Externa l FLUTICASONE 2021-09 Yes [id number] 50ug Use 1 K elsey PROPIONATE, 0-10 spray (50 Sey bold NASAL, 50 00:00: mcg total) - MCG/ACT 00 in each Externa nasal nostril l Suspension daily predniSONE 2021-09 Yes [id number] One pill Tracey (DELTASONE) 0-10 twice Seybold 10 MG oral 00:00: daily for - tablet 00 5 days Externa then one l pill daily for 5 days. Tramadol 2021-09 Yes [id number] 50mg [id number] Take 1 Tracey HCl 50 MG 0-10 [id number] tablet (50 Seybold oral Tablet 00:00: 3D mg total) - 00 by mouth Externa every 8 l hours as needed FOR PAIN Umeclidiniu 2021-09 Yes [id number] 1{puff} Inhale 1 Tracey m-Vilantero 0-10 puff into Sey bold l 62.5-25 00:00: the lungs - MCG/ACT 00 daily Externa inhalation l AEROSOL POWDER, BREATH ACTIVATED Insulin 2021-09 Yes [id number] ADMINISTER Tracey Glargine 0-10 26 UNITS Seybold (Lantus 00:00: UNDER THE - SoloStar) 00 SKIN TWICE Exte rna 100 UNIT/ML DAILY l subcutaneou s Solution Pen-injecto r Trazodone 2021-09 Yes [id number] 150mg Take 1 Ke lsey HCl 150 MG 0-10 tablet Seybold oral Tablet 00:00: (150 mg - 00 total) by Externa mouth at l bedtime Sertraline 2021-09 Yes [id number] 200mg Take 2 Tracey HCl 100 MG 0-10 tablets Seybol d oral Tablet 00:00: (200 mg - 00 total) by Externa mouth l daily Pravastatin 2021-09 Yes [id number] 20mg Take 1 Tracey Sodium 20 0-10 tablet (20 Seyb old MG oral 00:00: mg total) - Tablet 00 by mouth Externa daily l Pantoprazol 2021-09 Yes [id number] 1{packe Take 1 Tracey e Sodium 40 0-10 t} packet by Sey bold MG oral 00:00: mouth - Pack 00 daily Externa l [place]-3 2021-09 Yes [id number] 1000mg Take 1 Ke lsey Fatty Acids 0-10 capsule Seybo ld (Fish Oil) 00:00: (1,000 mg - 1000 MG 00 total) by Externa oral mouth l Capsule daily Metformin 2021-09 Yes [id number] 500mg Take 1 K elsey HCl 500 MG 0-10 tablet Seybold oral Tablet 00:00: (500 mg - 00 total) by Externa mouth 2 l times daily Furosemide 2021-09 Yes [id number] 40mg Take 1 Tracey 40 MG oral 0-10 tablet (40 Sey bold Tablet 00:00: mg total) - 00 by mouth Externa daily l Fenofibrate 2021-09 Yes [id number] 160mg Take 1 Tracey 160 MG oral 0-10 tablet Seybol d Tablet 00:00: (160 mg - 00 total) by Externa mouth l daily Clopidogrel 2021-09 Yes [id number] 75mg Take 1 Tracey Bisulfate 0-10 tablet (75 Seyb old 75 MG oral 00:00: mg total) - Tablet 00 by mouth Externa daily l Albuterol 2021-09 Yes [id number] USE 1 VIAL Tracey (PROVENTIL) 0-10 VIA Seybold (2.5 00:00: NEBULIZER - MG/3ML) 00 EVERY 6 Externa 0.083% HOURS l inhalation Inhalant Solution Umeclidiniu 2021- No Kelse y m-Vilantero 9-28 10-10 Seybold l 62.5-25 00:00: 00:00 - MCG/ACT 00 :00 Externa inhalation l AEROSOL POWDER, BREATH ACTIVATED TRIMETHOPRI 2021- No 1{tbl} Take 1 K elsey M-SULFAMETH 9-13 10-10 tablet by Se ybold OXAZOLE 00:00: 00:00 mouth 2 - 800-160 MG 00 :00 times Externa oral Tablet daily l Clopidogrel 2021- No 1{tbl} Take 1 K elsey Bisulfate 8-30 10-10 tablet by Seyb old 75 MG oral 00:00: 00:00 mouth - Tablet 00 :00 daily Externa l Lantus 2021- No ADMINISTER Yola ey SoloStar 05-15 10-10 26 UNITS Seybol d 100 UNIT/ML 00:00: 00:00 UNDER THE - subcutaneou 00 :00 SKIN TWICE Ex terna s Solution DAILY FOR l Pen-injecto 6 DAYS r Metformin 2021- No 1{tbl} Take 1 Harsha sey HCl 500 MG 8-17 10-10 tablet by Sey bold oral Tablet 00:00: 00:00 mouth 2 - 00 :00 times Externa daily l Sertraline 2021- No 200mg Take 200 K elsey HCl 100 MG 8-17 10-10 mg by Seybold oral Tablet 00:00: 00:00 mouth - 00 :00 daily Externa l Trazodone 2021- No 150mg Take 150 Ke lsey HCl 150 MG 8-17 10-10 mg by Seybold oral Tablet 00:00: 00:00 mouth at - 00 :00 bedtime Externa l Tramadol 2021- No 1{tbl} [id number] Take 1 Tracey HCl 50 MG 8- 10-10 [id number] tablet by Seybold oral Tablet 00:00: 00:00 3D mouth - 00 :00 every 8 Externa hours as l needed FOR PAIN Pravastatin 2021- No 20mg Take 20 mg Tracey Sodium 20 - 10-10 by mouth Seybo ld MG oral 00:00: 00:00 daily - Tablet 00 :00 Externa l Montelukast Yes 1{tbl} Take 1 Ke lsey (SINGULAIR) 7-28 tablet by Sey bold 10 MG oral 00:00: mouth - Tablet 00 daily Externa tablet l Albuterol 2021- No USE 1 VIAL K elsey (PROVENTIL) 7-28 10-10 VIA Seybold (2.5 00:00: 00:00 NEBULIZER - MG/3ML) 00 :00 EVERY 6 Externa 0.083% HOURS l inhalation Inhalant Solution Fenofibrate 0 2021- No 160mg Take 160 Tracey 160 MG oral 7-20 10-10 mg by Seybol d Tablet 00:00: 00:00 mouth - 00 :00 daily Externa l divalproex 2020-0 Yes 250mg Take 250 Un basia (DEPAKOTE) 3-12 mg by ity of 250 mg EC 14:08: mouth 2 [place] tablet 22 (two) Medical times Branch daily. insulin 2020-0 Yes inject Univers regular 3-12 under the ity of human 14:08: skin 3 [place] (NOVOLIN R) 22 (three) Medic al 100 unit/mL times Branch injection daily before meals. Indication s: Per sliding scale SERTraline 2020-0 Yes 150mg Take 150 Un basia (ZOLOFT) 3-12 mg by ity of 100 mg 14:08: mouth [place] tablet 22 daily. Medical Branch clopidogrel 2020-0 Yes 75mg Take 75 mg Univers (PLAVIX) 75 3-12 by mouth ity of mg tablet 14:08: daily. [address] Branch montelukast 2020-0 Yes 10mg Take 10 mg Univers (SINGULAIR) 3-12 by mouth ity of 10 mg 14:08: daily. [facility] 22 Medical Branch OXYGEN-AIR 2020-0 Yes 3L/min Inhale 3 U nivers DELIVERY 3-12 L/min ity of SYSTEMS 14:08: daily. [facility] 22 Indication Medical s: O2 at Branch 3L/min continuous ly tiZANidine 2020-0 Yes 2mg Take 2 mg Un basia 2 mg 3-12 by mouth 2 ity of capsule 14:08: (two) [place] 22 times Medical daily as Branch needed. furosemide 2020-0 Yes 40mg Take 40 mg U nivers (LASIX) 40 3-12 by mouth ity o f mg tablet 14:08: daily. [place] [address] Medical Branch lisinopril 2020-0 Yes 10mg Take 10 mg U nivers 10 mg 3-12 by mouth ity of tablet 14:08: daily. [place] [address] Medical Branch pregabalin 2020-0 Yes 300mg Take 300 Un basia (LYRICA) 3-12 mg by ity of 300 mg 14:08: mouth 2 [place] capsule 22 (two) Medical times Branch daily. pravastatin 2020-0 Yes 20mg Take 20 mg Univers 20 mg 3-12 by mouth ity of tablet 14:08: at [place] 22 bedtime. Medical Branch insulin 2020-0 Yes 40U [...] mcg daily. ity o f WITH 14:08: [place] HANDIHALER) 22 Medical 18 mcg Branch inhalation [...] mouth ity of mg tablet 14:08: daily. [place] 22 Medical Branch montelukast 2020-0 Yes 10mg Take 10 mg Univers (SINGULAIR) 3-12 by mouth ity of 10 mg 14:08: daily. [place] tablet 22 Medical Branch OXYGEN-AIR 2020-0 Yes 3L/min Inhale 3 U nivers DELIVERY 3-12 L/min ity of SYSTEMS 14:08: daily. [place] MISC 22 Indication Medical s: O2 at Branch 3L/min continuous ly tiZANidine 2020-0 Yes 2mg Take 2 mg Un basia 2 mg 3-12 by mouth 2 ity of capsule 14:08: (two) [place] 22 times Medical daily as Branch needed. furosemide 2020-0 Yes 40mg Take 40 mg U nivers (LASIX) 40 3-12 by mouth ity o f mg tablet 14:08: daily. [place] [address] Medical Branch lisinopril 2020-0 Yes 10mg Take 10 mg U nivers 10 mg 3-12 by mouth ity of tablet 14:08: daily. [place] [address] Medical Branch pregabalin 2020-0 Yes 300mg Take 300 Un basia (LYRICA) 3-12 mg by ity of 300 mg 14:08: mouth 2 [place] capsule 22 (two) Medical times Branch daily. pravastatin 2020-0 Yes 20mg Take 20 mg Univers 20 mg 3-12 by mouth ity of tablet 14:08: at [place] [address] bedtime. Medical Branch insulin 2020-0 Yes 40U inject 40 Unive rs glargine 3-12 Units ity of 100 unit/mL 14:08: under the [place] injection 22 skin at Medical bedtime. Branch albuterol 2020-0 Yes 2.5mg Inhale 2.5 U nivers 2.5 mg /3 3-12 mg every 6 ity of mL (0.083 14:08: (six) [place] %) 22 hours as Medical nebulizer needed [...] mcg daily. ity o f WITH 14:08: [place] HANDIHALER) 22 Medical 18 mcg Branch inhalation divalproex 2020-0 Yes 250mg Take 250 Un basia (DEPAKOTE) 3-12 mg by ity of 250 mg EC 14:08: mouth 2 [place] tablet 22 (two) Medical times Branch daily. insulin 2020-0 Yes inject Univers regular 3-12 under the ity of human 14:08: skin 3 [place] (NOVOLIN R) 22 (three) Medic al 100 unit/mL times Branch injection daily before meals. Indication s: Per sliding scale SERTraline 2020-0 Yes 150mg Take 150 Un basia (ZOLOFT) 3-12 mg by ity of 100 mg 14:08: mouth [place] tablet 22 daily. Medical Branch clopidogrel 2020-0 Yes 75mg Take 75 mg Univers (PLAVIX) 75 3-12 by mouth ity of mg tablet 14:08: daily. [place] [address] Medical Branch montelukast 2020-0 Yes 10mg Take 10 mg Univers (SINGULAIR) 3-12 by mouth ity of 10 mg 14:08: daily. [place] [address] Medical Branch OXYGEN-AIR 2020-0 Yes 3L/min Inhale 3 U nivers DELIVERY 3-12 L/min ity of SYSTEMS 14:08: daily. [place] [facility] s: O2 at Branch 3L/min continuous ly tiZANidine 2020-0 Yes 2mg Take 2 mg Un basia 2 mg 3-12 by mouth 2 ity of capsule 14:08: (two) [address] daily as Branch needed. furosemide 2020-0 Yes 40mg Take 40 mg U nivers (LASIX) 40 3-12 by mouth ity o f mg tablet 14:08: daily. [address] Branch lisinopril 2020-0 Yes 10mg Take 10 mg U nivers 10 mg 3-12 by mouth ity of tablet 14:08: daily. [address] Branch pregabalin 2020-0 Yes 300mg Take 300 Un basia (LYRICA) 3-12 mg by ity of 300 mg 14:08: mouth 2 [place] capsule 22 (two) Medical times [place] daily. pravastatin 2020-0 Yes 20mg Take 20 mg Univers 20 mg 3-12 by mouth ity of tablet 14:08: at [place] [address] bedtime. Medical Branch insulin 2020-0 Yes 40U [...] mcg daily. ity o f WITH 14:08: [place] HANDIHALER) 22 Medical 18 mcg Branch inhalation [...] by ity of 100 mg 14:08: mouth [place] tablet 22 daily. Medical Branch clopidogrel 2020-0 Yes 75mg Take 75 mg Univers (PLAVIX) 75 3-12 by mouth ity of mg tablet 14:08: daily. [place] 22 Medical Branch montelukast 2020-0 Yes 10mg Take 10 mg Univers (SINGULAIR) 3-12 by mouth ity of 10 mg 14:08: daily. [place] tablet 22 Medical Branch OXYGEN-AIR 2020-0 Yes 3L/min Inhale 3 U nivers DELIVERY 3-12 L/min ity of SYSTEMS 14:08: daily. [place] MISC 22 Indication Medical s: O2 at Branch 3L/min continuous ly tiZANidine 2020-0 Yes 2mg Take 2 mg Un basia 2 mg 3-12 by mouth 2 ity of capsule 14:08: (two) [place] 22 times Medical daily as Branch needed. furosemide 2020-0 Yes 40mg Take 40 mg U nivers (LASIX) 40 3-12 by mouth ity o f mg tablet 14:08: daily. [place] [address] Medical Branch lisinopril 2020-0 Yes 10mg Take 10 mg U nivers 10 mg 3-12 by mouth ity of tablet 14:08: daily. [place] [address] Medical Branch pregabalin 2020-0 Yes 300mg Take 300 Un basia (LYRICA) 3-12 mg by ity of 300 mg 14:08: mouth 2 [place] capsule 22 (two) Medical times Branch daily. pravastatin 2020-0 Yes 20mg Take 20 mg Univers 20 mg 3-12 by mouth ity of tablet 14:08: at [place] [address] bedtime. Medical Branch insulin 2020-0 Yes 40U inject 40 Unive rs glargine 3-12 Units ity of 100 unit/mL 14:08: under the [place] injection 22 skin at Medical bedtime. Branch albuterol 2020-0 Yes 2.5mg Inhale 2.5 U nivers 2.5 mg /3 3-12 mg every 6 ity of mL (0.083 14:08: (six) [place] %) 22 hours as Medical nebulizer needed for Bran ch solution Wheezing or Shortness of Breath. SALONPAS, 2020-0 Yes 1{patch Apply 1 Un basia CAPSAICIN-M 3-12 } Patch to ity of ENTHOL, 14:08: area(s) [place] TOPICAL 22 daily. Medical Indication Branch s: to be worn for 12 hours and off for 12hours tiotropium 2020-0 Yes 18ug Inhale 18 Un basia (SPIRIVA 3-12 mcg daily. ity o f WITH 14:08: [place] HANDIHALER) 22 Medical 18 mcg Branch inhalation [...] by ity of 100 mg 14:08: mouth [place] tablet 22 daily. Medical Branch clopidogrel 2020-0 Yes 75mg Take 75 mg Univers (PLAVIX) 75 3-12 by mouth ity of mg tablet 14:08: daily. [place] [address] Medical Branch montelukast 2020-0 Yes 10mg Take 10 mg Univers (SINGULAIR) 3-12 by mouth ity of 10 mg 14:08: daily. [place] tablet Medical Branch OXYGEN-AIR 2020-0 Yes 3L/min Inhale 3 U nivers DELIVERY 3-12 L/min ity of SYSTEMS 14:08: daily. [place] MIS 22 Indication Medical s: O2 at Branch 3L/min continuous ly tiZANidine 2020-0 Yes 2mg Take 2 mg Un basai 2 mg 3-12 by mouth 2 ity of capsule 14:08: (two) [place] [address] times [facility] daily as Branch needed. furosemide 2020-0 Yes 40mg Take 40 mg U nivers (LASIX) 40 3-12 by mouth ity o f mg tablet 14:08: daily. [place] [address] Medical Branch lisinopril 2020-0 Yes 10mg Take 10 mg U nivers 10 mg 3-12 by mouth ity of tablet 14:08: daily. [place] [address] Medical Branch pregabalin 2020-0 Yes 300mg Take 300 Un basia (LYRICA) 3-12 mg by ity of 300 mg 14:08: mouth 2 [place] capsule 22 (two) Medical times Branch daily. pravastatin 2020-0 Yes 20mg Take 20 mg Univers 20 mg 3-12 by mouth ity of tablet 14:08: at [place] [address] bedtime. Medical Branch insulin 2020-0 Yes 40U [...] to ity of ENTHOL, 14:08: area(s) [place] [facility] 22 daily. Medical Indication Branch s: to be worn for 12 hours and off for 12hours tiotropium 2020-0 Yes 18ug Inhale 18 Un basia (SPIRIVA 3-12 mcg daily. ity o f WITH 14:08: [place] HANDIHALER) 22 Medical 18 mcg Branch inhalation benzocaine- 2020-0 Yes [id number] 1{lozen Take 1 Univers menthol 3-12 ge} Lozenge by ity of (CEPACOL 00:00: mouth [place] SORE 00 every 4 Medical THROAT, (four) Branch [facility],) hours as lozenge needed for Sore throat. benzocaine- 2020-0 Yes [id number] 1{lozen Take 1 Univers menthol 3-12 ge} Lozenge by ity of (CEPACOL 00:00: mouth [place] SORE 00 every 4 Medical THROAT, (four) Branch [facility],) hours as lozenge needed for Sore throat. benzocaine- 2020-0 Yes [id number] 1{lozen Take 1 Univers menthol 3-12 ge} Lozenge by ity of (CEPACOL 00:00: mouth [place] SORE 00 every 4 Medical THROAT, (four) Branch [facility],) hours as lozenge needed for Sore throat. benzocaine- 2020-0 Yes [id number] 1{lozen Take 1 Univers menthol 3-12 ge} Lozenge by ity of (CEPACOL 00:00: mouth [place] SORE 00 every 4 Medical THROAT, (four) Branch [facility],) hours as lozenge needed for Sore throat. benzocaine- 2020-0 Yes [id number] 1{lozen Take 1 Univers menthol 3-12 ge} Lozenge by ity of (CEPACOL 00:00: mouth [place] SORE 00 every 4 Medical THROAT, (four) Branch [facility],) hours as lozenge needed for Sore throat. Pravastatin Pravastatin No 1{table QD Pravastati Common Sodium 20 Sodium 20 t} n Sodium S pirit MG MG 20 MG - [facility] Montelukast Montelukast No 1{table QD Montelukas Common Sodium 10 Sodium 10 t} t Sodium S pirit MG MG 10 MG - [facility] Neurontin Neurontin No 1{table QD Neurontin Common 600 MG 600 MG t} 600 MG Spirit - [facility] Zoloft 100 Zoloft 100 No 1{table QD Zoloft 100 Common MG MG t} MG [facility] Depakote ER Depakote ER No 1{table BID Depakote Common 250 MG 250 MG t} ER 250 MG [facility] Tylenol 325 Tylenol 325 No 1{table BID Tylenol Common MG MG t_as_ne 325 MG Spirit eded} [facility] Lisinopril Lisinopril No 1{table QD Lisinopril Common 10 MG 10 MG t} 10 MG [facility] Multi Multi No 1{table QD Multi Common Vitamin - Vitamin - t} Vitamin - [facility] Diphenoxyla Diphenoxyla No 2{ml_as QD Diphenoxyl Common te-Atropine te-Atropine _needed ate-Atropi Spirit 2.5-0.025 2.5-0.025 } ne - [facility] MG/5ML MG/5ML 2.5-0.025 St MG/5ML [facility] Tramadol Tramadol No 1{table QD Tramadol HCl 50 MG HCl 50 MG t_as_ne HCl 50 MG eded} Plavix 75 Plavix 75 No 1{table QD Plavix 75 MG MG t} MG Temazepam Temazepam No 1{capsu QD Temazepam 15 MG 15 MG le_at_b 15 MG edtime_ as_need ed} Zinc 50 MG Zinc 50 MG No 1{table QD Zinc 50 MG t} Fenofibrate Fenofibrate No 1{table QD Fenofibrat 160 MG 160 MG t} e 160 MG Lasix 40 MG Lasix 40 MG No 1{table QD Lasix 40 t} MG ProMod - ProMod - No ProMod - Pravastatin Pravastatin No 1{table QD Pravastati Sodium 20 Sodium 20 t} n Sodium MG MG 20 MG Montelukast Montelukast No 1{table QD Montelukas Sodium 10 Sodium 10 t} t Sodium MG MG 10 MG Neurontin Neurontin No 1{table QD Neurontin 600 MG 600 MG t} 600 MG Zoloft 100 Zoloft 100 No 1{table QD Zoloft 100 MG MG t} MG Depakote ER Depakote ER No 1{table BID Depakote 250 MG 250 MG t} ER 250 MG Tylenol 325 Tylenol 325 No 1{table BID Tylenol MG MG t_as_ne 325 MG eded} Lisinopril Lisinopril No 1{table QD Lisinopril 10 MG 10 MG t} 10 MG Multi Multi No 1{table QD Multi Vitamin - Vitamin - t} Vitamin - Diphenoxyla Diphenoxyla No 2{ml_as QD Diphenoxyl te-Atropine te-Atropine _needed ate-Atropi 2.5-0.025 2.5-0.025 } ne MG/5ML MG/5ML 2.5-0.025 MG/5ML Tramadol Tramadol No 1{table QD Tramadol HCl 50 MG HCl 50 MG t_as_ne HCl 50 MG eded} Plavix 75 Plavix 75 No 1{table QD Plavix 75 MG MG t} MG Temazepam Temazepam No 1{capsu QD Temazepam 15 MG 15 MG le_at_b 15 MG edtime_ as_need ed} Zinc 50 MG Zinc 50 MG No 1{table QD Zinc 50 MG t} Fenofibrate Fenofibrate No 1{table QD Fenofibrat 160 MG 160 MG t} e 160 MG Lasix 40 MG Lasix 40 MG No 1{table QD Lasix 40 t} MG ProMod - ProMod - No ProMod - Pravastatin Pravastatin No 1{table QD Pravastati Sodium 20 Sodium 20 t} n Sodium MG MG 20 MG Montelukast Montelukast No 1{table QD Montelukas Sodium 10 Sodium 10 t} t Sodium MG MG 10 MG Neurontin Neurontin No 1{table QD Neurontin 600 MG 600 MG t} 600 MG Zoloft 100 Zoloft 100 No 1{table QD Zoloft 100 MG MG t} MG Depakote ER Depakote ER No 1{table BID Depakote 250 MG 250 MG t} ER 250 MG Tylenol 325 Tylenol 325 No 1{table BID Tylenol MG MG t_as_ne 325 MG eded} Lisinopril Lisinopril No 1{table QD Lisinopril 10 MG 10 MG t} 10 MG Multi Multi No 1{table QD Multi Vitamin - Vitamin - t} Vitamin - Diphenoxyla Diphenoxyla No 2{ml_as QD Diphenoxyl te-Atropine te-Atropine _needed ate-Atropi 2.5-0.025 2.5-0.025 } ne MG/5ML MG/5ML 2.5-0.025 MG/5ML Tramadol Tramadol No 1{table QD Tramadol Common HCl 50 MG HCl 50 MG t_as_ne HCl 50 MG [facility] Plavix 75 Plavix 75 No 1{table QD Plavix 75 Common MG MG t} MG [facility] Temazepam Temazepam No 1{capsu QD Temazepam Common 15 MG 15 MG le_at_b 15 MG Spirit ed[facility] Zinc 50 MG Zinc 50 MG No 1{table QD Zinc 50 MG Common t} [facility] Fenofibrate Fenofibrate No 1{table QD Fenofibrat Common 160 MG 160 MG t} e 160 MG [facility] Lasix 40 MG Lasix 40 MG No 1{table QD Lasix 40 Common t} MG [facility] ProMod - ProMod - No ProMod - Com mon [facility] Vital Signs Vital Name Observation Time Observation Value Comments Source Systolic blood 2022-06-26 16:08:00 120 mm[Hg] Tracey ybold - pressure External Diastolic blood 2022-06-26 16:08:00 56 mm[Hg] Dee parker Seybold - pressure External Heart rate 2022-06-26 16:08:00 91 /min Tracey Edinson mikebold - External Body temperature 2022-06-26 16:08:00 36.33 Roberta Yola ey Seybold - External Respiratory rate 2022-06-26 16:08:00 20 /min Yola ey Seybold - External Body height 2022-06-26 16:08:00 160 cm Tracey S ceebold - External Systolic blood 2021-10-11 20:10:00 147 mm[Hg] [facility] Diastolic blood 2021-10-11 20:10:00 48 mm[Hg] Unive rs[facility] Heart rate 2021-10-11 20:10:00 77 /min [facility] Respiratory rate 2021-10-11 20:10:00 18 /min [facility] Oxygen saturation in 2021-10-11 20:10:00 94 /min [facility] Arterial blood by [facility] Pulse oximetry Branch Body temperature 2021-10-11 18:28:00 36.61 Roberta Univ [facility] [place] Body weight 2021-10-11 18:28:00 81.647 kg [facility] BMI 2021-10-11 18:28:00 31.89 kg/m2 Universi [facility] Body height 2021-08-19 14:07:00 160 cm Universi [facility] Body weight 2021-08-19 14:07:00 81.647 kg [facility] BMI 2021-08-19 14:07:00 31.89 kg/m2 [facility] height 2020-07-12 10:40:00 63 [in_i] [facility] weight 2020-07-12 10:40:00 187.5 [lb_av] [facility] temperature 2020-07-12 10:40:00 96.8 [degF] [facility] bmi 2020-07-12 10:40:00 33.21 kg/m2 [facility] oximetry 2020-07-12 10:40:00 97 % [facility] respiratory rate 2020-07-12 10:40:00 17 /min Comm on [facility] blood pressure 2020-07-12 10:40:00 135 mm[Hg] Common [facility] - systolic [facility] blood pressure 2020-07-12 10:40:00 70 mm[Hg] Common [facility] - diastolic [facility] Procedures Procedure Date / Time Performing Clinician Source Performed EXTERNAL PROVIDER 2021-10-24 06:01:00 Doctor Unassigned, No Univ [facility] RECORDS Name Medical Branch ABORH CONFIRMATION (LAB 2021-10-11 19:31:00 Eduarda Renae [facility] ONLY) Medical Branch COMP. METABOLIC PANEL 2021-10-11 18:47:00 Eduarda Renae [facility] ([id number]) Medical Branch CBC WITH DIFF 2021-10-11 18:47:00 Eduarda Renae [facility] HB ABO GROUPING 2021-10-11 18:47:00 Eduarda Renae [facility] COVID-19 (ID NOW RAPID 2021-10-11 18:47:00 Eduarda Renae [facility] [place] [facility] CONSENT/REFUSAL FOR 2021-10-11 18:16:56 Doctor Unassigned, No [facility] [place] DI[facility]NOSIS AND TREATMENT Name Medical Branch Encounters Start End Encounter Admission Attending Care Care Encounter Source Date/Time Date/Time Type Type Clinicians Facility Department ID 2021-10-12 Outpatient Crain, [facility] [id number] Common 11:59:42 Edmund 27167 [facility] 2021-10-12 Outpatient Crain, [facility] [id number] Common 11:59:23 Edmund 88383 [facility] 2021-10-12 Outpatient Crain, [facility] [id number] Common 11:58:52 Edmund 96413 [facility] 2021-07-17 Emergency [facility] [id number] Univers 17:21:18 [facility] 2021-07-17 Emergency [facility] [id number] Univers 08:24:55 ity [facility] 2021-07-14 Emergency [facility] [id number] Univers 13:56[facility] 2022-07-25 2022-07-25 Outpatient TRACEY BOYCE [id number] Tracey 08:15:00 08:15:00 MARIELLA Seybol d 2022-07-17 2022-07-17 Outpatient TRACEY BOYCE [id number] Tracey 00:00:00 00:00:00 MARIELLA Seybol d 2022-07-13 2022-07-13 Outpatient TRACEY BOYCE [id number] Tracey 23:00:00 23:00:00 MARIELLA Seybol d 2022-06-26 2022-06-26 Outpatient TRACEY BOYCE [id number] Tracey 11:00:00 11:00:00 MARIELLA Seybol d 2021-10-24 2021-10-24 Orders Doctor ELIZABETH [id number] [id number] Univers 00:00:00 00:00:00 Only Unassigned, FLORY 350.1.13.10 ity of [place] [facility] 4.2.7.2.686 Pete as [id number] [facility] [address] [place] 2021-10-11 2021-10-11 [facility] [id number] Univers 12:29:00 15:20:00 EDUARDA [facility] 2021-10-11 2021-10-11 Emergency [facility] [id number] Univers 12:29:00 15:20:00 Eduarda JENSEN 350.1.13.10 it[place] of [place] [id number] [facility] [address] [place] 2021-08-29 2021-08-29 Telephone Alfred [facility] 1.2.840.114 [id number] Univers 00:00:00 00:00:00 Ally L mPort 350.1.13.10 it y of SURGICAL 4.2.7.2.686 Pete as SPECIALTI [id number] Ct dical ES 198 [facility] 2021-08-22 2021-08-22 Telephone [facility] 1.2.840.114 [id number] Univers 00:00:00 00:00:00 Ally L mPort 350.1.13.10 it y of [place] 4.2.7.2.686 Pete as SHARRON?BLEA [id number] Ct dical GUYEY [address] [place] [facility] 2021-08-19 2021-08-19 Outpatient R ALFRED [facility] [id number] Univers 08:00:00 08:40:08 ALLY [facility] 2021-08-19 2021-08-19 Office John Brewer [facility] 1.2.840.114 [id number] Univers 08:00:53 08:15:53 Visit Ally Simon mPort 350.1.13.10 ity of [place] 4.2.7.2.686 Pete as SHARRON?BLEA [id number] Ct dical KNEY [address] [place] [address] OFFICE [facility] 2021-08-19 2021-08-19 Outpatient R ALFRED [facility] [id number] Univers 08:00:00 08:00:00 ALLY [facility] 2021-08-08 2021-08-08 Telephone [facility] [id number] Univers 00:00:00 00:00:00 John S HEALTH 350.1.13.10 it y of [place] 4.2.7.2.686 Pete as SHARRON?BLEA [id number] Ct vicky RIVERS [address] [place] [address] OFFICE [facility] 2021-08-05 2021-08-05 Outpatient R ALFRED [facility] [id number] Univers 10:30:00 14:33:30 [facility] 2021-08-05 2021-08-05 [facility] [id number] Univers 10:30:00 14:33:30 [facility] 2021-08-05 2021-08-05 Office [facility] [id number] Univers 10:16:38 10:31:38 Visit Ally L HEALTH 350.1.13.10 it y of [place] 4.2.7.2.686 Pete as SHARRON?BLEA [phone] Ct vicky RIVERS [address] [place] [address] OFFICE [facility] 2021-08-05 2021-08-05 Outpatient R ALFRED [facility] [id number] Univers 10:30:00 10:30:00 [facility] 2021-08-05 2021-08-05 [facility] [id number] Univers 10:30:00 10:30:00 [facility] 2021-08-05 2021-08-05 Telephone [facility] [id number] Univers 00:00:00 00:00:00 John S HEALTH 350.1.13.10 it y of [place] 4.2.7.2.686 Pete as SHARRON?BLEA [id number] Ct vicky RIVERS [address] [place] [address] OFFICE [facility] 2021-08-03 2021-08-03 Outpatient R ALFRED [facility] [id number] Univers 13:00:00 13:00:00 ALLY [facility] 2021-07-06 2021-07-06 Outpatient R ALFRED [facility] [id number] Univers 14:00:00 13:14:43 ALLY [facility] 2021-07-06 2021-07-06 Outpatient R ALFRED [facility] [id number] Univers 14:00:00 13:14:43 ALLY [facility] 2021-07-06 2021-07-06 Outpatient R ALFRED [facility] [id number] Univers 14:00:00 13:14:43 ALLY [facility]ia [facility] 2021-07-06 2021-07-06 Office [facility] [id number] Univers 12:57:41 13:14:43 Visit Ally Ramirez [facility] 350.1.13.10 it y of [place] 4.2.7.2.686 Pete as SHARRON?BLEA [id number] Ct vicky T[address] OFFICE [facility] 2021-07-01 2021-07-01 Office [facility] [id number] Univers 10:45:00 11:00:00 Visit Ally Ramirez [facility] 350.1.13.10 it y of [place] 4.2.7.2.686 Pete as SHARRON?BLEA [id number] Ct vicky RIVERS [address] [place] [address] OFFICE [facility] 2021-07-01 2021-07-01 Outpatient R ALFRED [facility] [id number] Univers 10:45:00 10:45:00 ALLY [facility] 2021-07-01 2021-07-01 Outpatient R ALFRED [facility] [id number] Univers 10:45:00 10:45:00 ALLYEVANS [facility]jia [facility] 2021-06-29 2021-06-30 Emergency [facility] 1.2.840.114 [id number] Univers 18:40:00 00:41:00 Eduarda [place] 350.1.13.10 ity of [place] 4.2.7.2.686 [facility] [id number] [facility] [address] 2021-06-29 2021-06-30 Emergency X OC, [facility] ERT [id number] Univers 18:40:00 00:41:00 EDUARDA [facility] 2021-06-29 2021-06-29 Out[facility] [id number] Univers 15:30:00 15:30:00 ALLY [facility] 2021-06-28 2021-06-28 Outpatient [facility]ila [facility] [id number] Univers 10:30:00 10:30:00 JOHN [facility] 2021-06-14 2021-06-14 Outpatient [facility]ila [facility] [id number] Univers 09:57:45 23:59:00 MARIAH [facility] 2021-06-14 2021-06-14 [facility] 1.2.840.114 [id number] Univers 09:57:45 23:59:00 Encounter Mariahladan Jensen 350.1.13.10 ity of [place] 4.2.7.2.686 [facility] [id number] [facility] 801 [address] 2021-06-14 2021-06-14 Outpatient [facility]ila [facility] [id number] Univers 09:57:45 23:59:00 MARIAH [facility] 2021-02-01 2021-02-01 Outpatient Lila [facility] [id number] Univers 10:11:59 23:59:00 JOHN [facility] 2021-02-01 2021-02-01 Outpatient [facility]ila [facility] [id number] Univers 10:11:59 23:59:00 JOHN [facility] 2021-02-01 2021-02-01 [facility] 1.2.840.114 [id number] Univers 10:11:59 23:59:00 Encounter John [facility] 350.1.13.10 ity of Surgical 4.2.7.2.686 Pete as [facility] [id number] Ct dical 809 [facility] 2021-02-01 2021-02-01 Outpatient R DANIELLA [facility] [id number] Univers 10:11:59 23:59:00 JOHN ity of [facility] 2021-02-01 2021-02-01 Office [facility] 1.2.840.114 [id number] Univers 10:01:36 10:59:45 Visit [facility] 350.1.13.10 it y of Surgical 4.2.7.2.686 Pete as Specialti [id number] Ct dical es 198 [facility] 2021-01-19 2021-01-19 Emergency [facility] [id number] [id number] Univers 15:29:00 22:28:00 Jo-Ann S [place] 350.1.13.10 i ty of [place] 4.2.7.2.686 [facility] [id number] [facility] 084 [address] 2021-01-06 2021-01-06 [facility] Mariah Tucker [facility] 1.2.840. 114 [id number] Univers 15:57:42 23:59:00 Encounter Radiology [place] 350.1.13.10 ity of [place] 4.2.7.2.686 [facility] [id number] [facility] [address] 2021-01-06 2021-01-06 [facility] 1.2.840.114 [id number] Univers 15:57:02 23:59:00 Encounter Ally Jensen 350.1.13.10 ity of [place] 4.2.7.2.686 [facility] [id number] [facility] 804 [address] 2021-01-06 2021-01-06 Outpatient R [facility] [id number] Univers 00:00:00 00:00:00 ALLY ity of [facility] 2020-12-28 2020-12-28 Office [facility] 1.2.840.114 [id number] Univers 11:00:36 11:15:36 Visit [facility] 350.1.13.10 it y of Surgical 4.2.7.2.686 Pete as Specialti [id number] Ct dical es 198 [facility] 2020-12-28 2020-12-28 Outpatient Lila DANIELLA [facility] [id number] Univers 10:45:00 10:45:00 JOHN [facility] 2020-12-28 2020-12-28 Outpatient Lila DANIELLA [facility] [id number] Univers 10:45:00 10:45:00 JOHN [facility] 2020-12-28 2020-12-28 Outpatient Lila DANIELLA [facility] [id number] Univers 10:45:00 10:45:00 JOHN it[facility] 2020-12-28 2020-12-28 Telephone [facility] 1.2.840.114 [id number] Univers 00:00:00 00:00:00 [facility] 350.1.13.10 it y of Surgical 4.2.7.2.686 Pete as Specialti [id number] Ct dical es 198 [facility] 2020-12-23 2020-12-23 Orders Doctor ELIZABETH 1.2.840.114 [id number] Univers 00:00:00 00:00:00 Only Unassigned, FLORY 350.1.13.10 ity of [place] [facility] 4.2.7.2.686 Pete as [id number] [facility] 00[address] 2020-12-13 2020-12-13 Outpatient Lila BREWER [facility] [id number] Univers 14:45:00 14:45:00 JOHN [facility] 2020-12-10 2020-12-10 (TEL) [facility] [id number] Co mmon 00:00:00 00:00:00 [facility] 2020-12-09 2020-12-09 Emergency X MAKSIM K [facility] ERT [id number] Univers 09:24:00 13:41:00 it[facility] 2020-12-09 2020-12-09 Emergency Leana Schaeffer [facility] 1.2.840.114 [id number] Univers 09:24:00 13:41:00 Taylor Jensen 350.1.13.10 i [place] [id number] [facility] 0[address] 2020-09-29 2020-09-29 [facility] 1.2.840.114 [id number] Univers 11:00:00 23:59:00 Encounter Mariah [place] 350.1.13.10 ity of [place] 4.2.7.2.686 [facility] [id number] [facility] 801 [address] 2020-09-29 2020-09-29 Outpatient R [facility] [id number] Univers 00:00:00 00:00:00 MARIAH [facility] 2020-08-23 2020-08-23 [facility] [id number] Univers 13:03:13 23:59:00 MARIAH [facility] 2020-08-23 2020-08-23 [facility] 1.2.840.114 [id number] Univers 13:00:00 23:59:00 Encounter Mariah [place] 350.1.13.10 ity [facility] 4.2.7.2.686 [facility] [id number] [address] 2020-08-16 2020-08-16 [facility] [id number] Univers 00:00:00 00:00:00 MARIAH [facility] 2020-07-13 2020-07-13 (TEL) STLMLC STLMLC [id number] Co mmon 00:00:00 00:00:00 [facility] 2020-07-12 2020-07-12 OFFICE STLMLC STLMLC [id number] Co mmon 00:00:00 00:00:00 VISIT [facility] it PT LEVEL 4 - [facility] 2020-07-02 2020-07-02 Outpatient R NÉSTOR MACDONALD [facility] [id number] Univers 14:40:00 14:40:00 NÉSTOR MACDONALD i ty of [facility] 2020-04-22 2020-04-22 Outpatient R NÉSTOR MACDONALD [facility] [id number] Univers 11:00:00 11:00:00 NÉSTOR MACDONALD i ty of [facility] 2020-04-05 2020-04-05 Hospital Radiology [facility] 1.2.840.114 [id number] Univers 14:30:00 23:59:00 Encounter [place] 350.1.13.10 ity of [place] 4.2.7.2.686 [facility] [id number] [facility] [address] 2020-04-05 2020-04-05 Outpatient R RADIOLOGY [facility] [id number] Univers 00:00:00 00:00:00 ity of [facility] 2019-11-28 2019-11-28 Transition Kaylyn Saha 1.2.840.114 [id number] Univers 00:00:00 00:00:00 of Care Flakita Stiles 350.1.13.10 it y of [place] 4.2.7.2.686 [facility] [id number] [facility] [address] 2019-11-26 2019-11-27 Emergency Marilin Bergeron [facility] 1.2.840. 114 [id number] Univers 22:13:32 14:00:00 Trupti Bonilla 350.1.13.10 ity of [place] 4.2.7.2.686 [facility] [id number] [facility] [address] [place] 2019-11-05 2019-11-05 Emergency X [facility] [id number] Univers 09:10:44 11:35:00 MARILIN [facility] 2019-11-05 2019-11-05 Emergency [facility] ERT [id number] Univers 09:10:44 11:35:00 MARILIN [facility] 2019-11-05 2019-11-05 Emergency [facility] 1.2.856.119 [id number] Univers 09:10:44 11:35:00 Marilin Jensen 350.1.13.10 i ty of [place] 4.2.7.2.686 [facility] [id number] [address] Results Test Description Test Time Test Comments Results Result Comments Source ABORH Confirmation (Lab Only) 2021-10-11 20:13:57 Test Item Value Reference Range Interpretation Comme nts ABO & RH (test code = 20) AB Positive Pe rformed at [facility] Laboratory Services - ADC Blood [address] [place], [place] [address]Dxhe Free: [phone] A No. [id number] [facility] Screen - ONCE [id number] 19:34:48 Test Item Value Reference Range Interpretation Comments ABO & RH (test AB Positive Performed at [facility] code = 20) Laboratory Serv [facility] Blood Bank1 [address] [place] [address]Wpyu Free: [phone] A No. [id number] IAT (test code = Negative Performed a t [facility] 1185) Laboratory Serv [facility] Blood Bank1 [address] [place] [address]Jakc Free: [phone] A No. [id number] [facility] Center[facility]. METABOLIC PANEL ([id number])2021-10-11 19:32:57 Test Item Value Reference Range Interpretation Comments NA (test code = 136 mmol/L 135-145 4440205331) K (test code = 4.2 mmol/L 3.5-5.0 6091258381) CL (test code = 97 mmol/L 98-108 L 5075705746) CO2 TOTAL (test code = 29 mmol/L 23-31 1212288858) AGAP (test code = 2-16 9243766447) BUN (test code = 34 mg/dL 7-23 H 1723648696) GLUCOSE (test code = 149 mg/dL 70-110 H 1994589557) CREATININE (test code = 1.48 mg/dL 0.50-1.04 H 9569068459) TOTAL BILI (test code = 0.3 mg/dL 0.1-1.1 5646077553) CALCIUM (test code = 8.0 mg/dL 8.6-10.6 L 4362903142) T PROTEIN (test code = 7.1 g/dL 6.3-8.2 2771739000) ALBUMIN (test code = 4.1 g/dL 3.5-5.0 4567715293) ALK PHOS (test code = 52 U/L 34-122 5121542381) ALTv (test code = 10 U/L 5-35 1742-6) AST(SGOT) (test code = 18 U/L 13-40 8411923203) eGFR (test code = mL/min/1.73m2 3509609378) CAMILLE (test code = CAMILLE) Association of [...] tests). Lab Interpretation Abnormal (test code = 51879-0) [facility] WITH [id number] 19:00:51 Test Item Value Reference Range Interpretation Comments WBC (test code = See_Comment [Automated 2085-2) message] The sy stem which generated this result transmitted reference range : 4.30 - 11.10 10*3/?L. The reference range was not used to interpret this result as normal/abnormal . RBC (test code = See_Comment L [Automated 091-2) message] The sy stem which generated this [...] RDW-SD (test code = 46.5 fL 39.0-49.9 63135-3) RDW-CV (test code = 15.9 % 12.0-15.5 H 788-0) PLT (test code = See_Comment [Automated 777-3) message] The sy stem which generated this result transmitted reference range : 166 - 358 10*3/ ?L. The reference r ora was not used to interpret this result as normal/abnormal . MPV (test code = 10.7 fL 9.5-12.9 76688-7) NRBC/100 WBC (test See_Comment [Automat ed code = [id number]) message] The system which generated this result transmitted reference range : 0.0 - 10.0 /100 WBCs. The refer ence range was not u sed to interpret th is result as normal/abnormal . NRBC x10^3 (test code <0.01 See_Comment [Auto mated = [id number]) message] The s ystem which generated this result transmitted reference range : 10*3/?L. The reference range was not used to interpret this result as normal/abnormal . GRAN MAT (NEUT) % 65.4 % (test code = 770-8) IMM GRAN % (test code 0.30 % = [id number]) LYMPH % (test code = 25.1 % 736-9) MONO % (test code = 6.1 % 5905-5) EOS % (test code = 2.7 % 713-8) BASO % (test code = 0.4 % 706-2) GRAN MAT x10^3(ANC) 4.86 10*3/uL 1.88-7.09 (test code = 2706143484) IMM GRAN x10^3 (test <0.03 0.00-0.06 code = 0875819107) LYMPH x10^3 (test code 1.86 10*3/uL 1.32-3.29 = 731-0) MONO x10^3 (test code 0.45 10*3/uL 0.33-0.92 = 742-7) EOS x10^3 (test code = 0.20 10*3/uL 0.03-0.39 711-2) BASO x10^3 (test code 0.03 10*3/uL 0.01-0.07 = 704-7) Lab Interpretation Abnormal (test code = 62342-9) [facility]"
[2022-07-21 15:03] LABS: Absolute Lymphocytes (CBC) 0.9 K/uL (0.7-4.9); Hematocrit 25.8 % (36.0-45.0); Lymphocytes % 6.8 % (15.3-44.8); MCV 73.1 fL (80-100); MPV 7.8 fL (7.6-11.3); RBC Red Blood Cell Count 3.53 M/uL (3.86-4.86)
[2022-07-21 15:04] LABS: Urine Blood Negative (Negative); Urine Glucose Negative (Negative); Urine Protein Negative (Negative); Urine Specific Gravity 1.015 (1.005-1.030)
[2022-07-21 15:06] LABS: Protime INR 1.06
[2022-07-21] MEDS ORDERED: NA CHLORIDE 0.9% 500 ML ONE (15:06)
[2022-07-21 15:11] LABS: Urine Bacteria <20 /HPF (<20); Urine Mucus Slight /HPF (None Seen)
[2022-07-21 15:16] LABS: Albumin 3.1 g/dL (3.4-5.0); Bilirubin Total 0.5 mg/dL (0.2-1.0); Potassium 3.5 mmol/L (3.5-5.1); Protein, Total 8.2 g/dL (6.4-8.2)
[2022-07-21 15:20] LABS: SARS-CoV-2 Antigen Rapid Res Negative (Negative)
--- NOTE | 2022-07-21 15:27 | RAD REPORT ---
EXAM DESCRIPTION: RAD - Foot Right 3 View - 07/21/2022 2:49 pm CLINICAL HISTORY: Right foot pain. Fourth toe discoloration FINDINGS: No fracture or dislocation is seen Cortical regularity involves the second terminal tuft. Equivocal cortical regularity involves the fou rth terminal tuft of the distal phalanx. These are nonspecific but could indicate osteomyelitis Post surgical changes involve the first metatarsal.
[2022-07-21] MEDS ORDERED: MEPERIDINE HCL 25 MG/ML SYR ONE (15:50)
--- NOTE | 2022-07-21 15:50 | ER ---
Nurse's Notes [facility] – [place], [place] Jae Name: Nakia Turcios Age: 66 yrs Sex: Female : 1955 Arrival Date: 07/21/2022 Time: 14:24 Bed 3 Private MD: Diagnosis: Cellulitis of right lower limb;Osteomyelitis, unspecified;Pneumonia, unspecified organism Presentation: 07/21 14:24 Chief complaint: Patient states: Weakness and multiple falls for 3-4 days. Coronavirus ll1 screen: Vaccine status: Patient reports receiving the 2nd dose of the covid vaccine. Client denies travel out of the [place] in the last 14 days. At this time, the client does not indicate any symptoms associated with coronavirus-19. Ebola Screen: Patient denies travel to an Ebola-affected area in the 21 days before illness onset. No acute neurological deficit is noted. Initial Sepsis Screen: Does the patient meet any 2 criteria? No. Patient's initial sepsis screen is negative. Does the patient have a suspected source of infection? No. Patient's initial sepsis screen is negative. Risk Assessment: Do you want to hurt yourself or someone else? Patient reports no desire to harm self or others. Onset of symptoms was July 18, 2022. 14:24 Method Of Arrival: EMS ll1 14:24 Acuity: JESUSITA 3 ll1 17:39 Pre-hospital glucose is not applicable to this patient. ll1 Triage Assessment: 14:25 The onset of the patients symptoms was July 18, 2022 at 07:00. ll1 14:26 The onset of the patients symptoms was more than six hours ago. General: Appears in no ll1 apparent distress. Behavior is cooperative, appropriate for age. Pain: Denies pain. Neuro: Reports weakness. Stroke Activation: Symptom onset > 6 hours Physician: Stroke Attending; Name: ; Notified At: ; Arrived At: Physician: Chief Stroke Resident; Name: ; Notified At: ; Arrived At: Physician: Stroke Resident; Name: ; Notified At: ; Arrived At: Physician: ED Attending; Name: ; Notified At: ; Arrived At: Physician: ED Resident; Name: ; Notified At: ; Arrived At: Historical: - Allergies: 14:24 Codeine (Anaphylaxis); ll1 14:24 FLU VACCINE; ll1 - PMHx: 14:24 COPD; Diabetes - IDDM; Hypertension; neuropathy; CHF; ll1 - Immunization history:: Client reports receiving the 2nd dose of the Covid vaccine. - Social history:: Smoking status: Patient reports the use of cigarette tobacco products, denies chronic smoking, but will smoke occasionally. - Family history:: not pertinent. - Hospitalizations: : No recent hospitalization is reported. Screenin:37 Abuse screen: Denies threats or abuse. Nutritional screening: No deficits noted. ll1 Tuberculosis screening: No symptoms or risk factors identified. Fall Risk IV access (20 points). Gait- Weak (10 pts.). Total Saucedo Fall Scale indicates Low Risk Score (25-44 pts). Fall prevention measures have been instituted. Side Rails Up X 2 Placed close to Nursing Station Frequent Obs/Assesments occuring Family Present and informed to notify staff if they need to leave bedside As available Patient and Family Educated on Fall Prevention Program and strategies. Assessment: 14:25 VAN Scoring: Arm Drift: Patients demonstrates NO arm weakness. Patient is VAN Negative. ll1 Aphasia: No aphasia noted. The patient has not been NPO before screening. The patient is alert, and able to follow commands. The patient does not exhibit slurred or garbled speech. The patient is not exhibiting difficulty speaking. The patient does not exhibit difficulty understanding words. The patient is able to swallow own secretions with no drooling or need for suction. Patient tolerated one teaspoon of water. No drooling, immediate coughing, gurgling, or clearing of the throat was noted. The patient tolerated 90mL of water. No drooling, immediate coughing, gurgling, or clearing of the throat was noted. The patient passed the bedside swallow screening. Oral medications may be given as ordered. Contact Physician for further diet orders. TNKase (Tenecteplase) Screening: Contraindications: Patient reports onset of signs and symptoms of stroke greater than 6 hours ago:. 14:25 Provider notified of bedside swallow screening results: Sascha Singletary MD. ll1 15:20 Reassessment: No changes from previously documented assessment. Patient and/or family ll1 updated on plan of care and expected duration. Pain level reassessed. 16:20 Reassessment: No changes from previously documented assessment. Patient and/or family ll1 updated on plan of care and expected duration. Pain level reassessed. 17:20 Reassessment: No changes from previously documented assessment. Patient and/or family ll1 updated on plan of care and expected duration. Pain level reassessed. 17:30 Reassessment: No changes from previously documented assessment. Patient and/or family ll1 updated on plan of care and expected duration. Pain level reassessed. after 4th urination on bed short, we cleaned her bed sheets. Pure wick to suction and clean diaper applied. 17:37 Reassessment: No changes from previously documented assessment. Patient and/or family ll1 updated on plan of care and expected duration. Pain level reassessed. given supper sunil. Vital Signs: 14:24 BP 135 / 56; Pulse 87; Resp 19; Temp 98.7(O); Pulse Ox 92% on R/A; Weight 72.57 kg; ll1 Height 5 ft. 3 in. (160.02 cm); Pain 0/10; 15:31 BP 132 / 68; Pulse 84; Resp 18; Pulse Ox 95% on 4 lpm NC; ll1 17:56 BP 155 / 78; Pulse 85; Resp 20; Temp 98.6; Pulse Ox 95% on 4 lpm NC; ll1 14:24 Body Mass Index 28.34 (72.57 kg, 160.02 cm) ll1 NIH Stroke Scale Scores: 14:25 NIHSS Score: 0 ll1 ED Course: 14:24 Patient arrived in ED. ll1 14:25 Patient has correct armband on for positive identification. Bed in low position. Call ll1 light in reach. Side rails up X2. Client placed on continuous cardiac and pulse oximetry monitoring. NIBP monitoring applied. pvc monitor on. 14:26 Triage completed. ll1 14:26 Arm band placed on Patient placed in an exam room, on a stretcher. ll1 14:28 Sascha Singletary MD is Attending Physician. rn 14:50 Inserted saline lock: 22 gauge in left antecubital area, using aseptic technique. Blood ll1 collected. 14:51 XRAY Foot RIGHT 3 View In Process Unspecified. EDMS 14:51 XRAY Chest (1 view) In Process Unspecified. EDMS 15:03 SARS RAPID Sent. rn 15:09 Dashawn Alvarez RN is Primary Nurse. ll1 15:49 Gemma Streeter MD is Hospitalizing Provider. rn 15:53 Blood Culture Adult (2) Sent. ll1 17:38 No provider procedures requiring assistance completed. ll1 17:58 Patient admitted, IV remains in place. ll1 Administered Medications: 15:09 Drug: NS 0.9% 500 ml Route: IV; Rate: bolus; Site: left antecubital; ll1 16:09 Follow up: Response: No adverse reaction; IV Status: Completed infusion; IV Intake: ll1 500ml 16:05 Drug: Demerol (meperidine) 25 mg Route: IVP; Site: right antecubital; ll1 17:04 Follow up: Response: No adverse reaction ll1 16:05 Drug: vancoMYCIN 1 grams Route: IVPB; Infused Over: 2 hrs; Site: right antecubital; ll1 18:08 Follow up: Response: No adverse reaction; IV Status: Completed infusion; IV Intake: ll1 250ml Medication: 17:39 VIS not applicable for this client. ll1 Point of Care Testin:40 see results area ll1 Ranges: Intake: 16:09 IV: 500ml; Total: 500ml. ll1 18:08 IV: 250ml; Total: 750ml. ll1 Outcome: 15:50 Decision to Hospitalize by Provider. rn 17:58 Condition: stable ll1 17:58 Instructed on the need for admit. 18:00 Admitted to Med/surg accompanied by nurse, via stretcher, room 207, with oxygen, with ll1 chart, Report called to Neda Carlos RN on 18:23 Patient left the ED. NIH Stroke Scale - NIH Stroke Score Date: 07/21/2022 Time: 14:25 Total Score = 0 1a. Level of Consciousness (LOC) - 0(Alert) 1b. Level of Consciousness (LOC) (Month \T\ Age) - 0(Both) 1c. LOC Commands (Open \T\ Closes Eyes/Marble Setter) - 0(Both) 2. Best Gaze (Lateral Gaze Paresis) - 0(Normal) 3. Visual Field Loss - 0(No visual loss) 4. Facial Palsy - 0(Normal) 5a. Left Arm: Motor (10-second hold) - 0(No drift) 5b. Right Arm: Motor (10-second hold) - 0(No drift) 6a. Left Leg: Motor (5-second hold - always test supine) - 0(No drift) 6b. Right Leg: Motor (5-second hold - always test supine) - 0(No drift) 7. Limb Ataxia (finger/nose \T\ heel/faria - test with eyes open) - 0(Absent) 8. Sensory Loss (pinprick arms/legs/face) - 0(Normal) 9. Best Language: Aphasia (description/naming/reading) - 0(No aphasia) 10. Dysarthria (speech clarity - read or repeat words) - 0(Normal) 11. Extinction and Inattention (visual/tactile/auditory/spatial/personal) - 0(No abnormality) Initials: ll1 Signatures: Dispatcher [employer] EDMarivel Hill, Sascha Fraga RN, MD MD rn Lewis, Lynsay, RN RN ll1 Corrections: (The following items were deleted from the chart) 17:51 17:43 Inserted saline lock: 22 gauge in right antecubital area, using aseptic ll1 technique. Blood collected. ll1 18:07 18:00 Admitted to Med/surg accompanied by nurse, via stretcher, room 207, with ll1 oxygen, with chart, ll1
[2022-07-21] MEDS ORDERED: NA CHLORIDE 0.9% 250 ML ONE (15:51)
[2022-07-21] MEDS ORDERED: VANCOMYCIN 1 GM/VIAL ONE (15:51)
--- NOTE | 2022-07-21 15:51 | EDPHYS ---
Physician Documentation [facility] Name: Nakia Turcios Age: 66 yrs Sex: Female : 1955 Arrival Date: 07/21/2022 Time: 14:24 Bed 3 Private MD: ED Physician Sascha Singletary HPI: 07/21 15:13 This 66 yrs old Female presents to ER via EMS with complaints of Weakness. rn 15:13 The patient presents to the emergency department with weakness of the entire body, rn generalized weakness. Onset: The symptoms/episode began/occurred 2 day(s) ago. Context: occurred at home. Associated signs and symptoms: Pertinent positives: chills, Pertinent negatives: fever. Severity of symptoms: At their worst the symptoms were moderate in the emergency department the symptoms are unchanged. The patient has not experienced similar symptoms in the past. The patient has not recently seen a physician. Pt reports feels bad, generalized weakness, unable to walk, + chills. No fever. NO trauma. REports increased pain to right 4th toe over last 2 days. . Historical: - Allergies: 14:24 Codeine (Anaphylaxis); ll1 14:24 FLU VACCINE; ll1 - PMHx: 14:24 COPD; Diabetes - IDDM; Hypertension; neuropathy; CHF; ll1 - Immunization history:: Client reports receiving the 2nd dose of the Covid vaccine. - Social history:: Smoking status: Patient reports the use of cigarette tobacco products, denies chronic smoking, but will smoke occasionally. - Family history:: not pertinent. - Hospitalizations: : No recent hospitalization is reported. ROS: 15:13 Constitutional: Negative for fever, and weight loss, Eyes: Negative for injury, pain, rn redness, and discharge, Cardiovascular: Negative for chest pain, palpitations, and edema, Respiratory: Negative for shortness of breath, cough, wheezing, and pleuritic chest pain, Abdomen/GI: Negative for abdominal pain, nausea, vomiting, diarrhea, and constipation, MS/Extremity: Negative for injury, + swelling and pain to right 4th toe Skin: + discoloration of right 4th toe Neuro: Negative for headache, numbness, tingling, and seizure. Exam: 15:11 ECG was reviewed by the Attending Physician. rn 15:13 Constitutional: This is a well developed, well nourished patient who is awake, alert, rn and in no acute distress. Head/Face: Normocephalic, atraumatic. ENT: dry MM Cardiovascular: Regular rate and rhythm. No pulse deficits. Respiratory: No increased work of breathing, no retractions or nasal flaring. Abdomen/GI: Soft, non-tender Skin: Warm, dry, + purple discoloration of right 4th toe MS/ Extremity: Pulses equal, no cyanosis. right 4th toe with swelling and discoloration Neuro: Awake and alert, GCS 15 Vital Signs: 14:24 BP 135 / 56; Pulse 87; Resp 19; Temp 98.7(O); Pulse Ox 92% on R/A; Weight 72.57 kg; ll1 Height 5 ft. 3 in. (160.02 cm); Pain 0/10; 15:31 BP 132 / 68; Pulse 84; Resp 18; Pulse Ox 95% on 4 lpm NC; ll1 17:56 BP 155 / 78; Pulse 85; Resp 20; Temp 98.6; Pulse Ox 95% on 4 lpm NC; ll1 14:24 Body Mass Index 28.34 (72.57 kg, 160.02 cm) ll1 NIH Stroke Scale Scores: 14:25 NIHSS Score: 0 ll1 MDM: 14:29 Patient medically screened. rn 15:49 Data reviewed: vital signs, nurses notes, lab test result(s), radiologic studies, plain rn films, and as a result, I will admit patient. Counseling: I had a detailed discussion with the patient and/or guardian regarding: the historical points, exam findings, and any diagnostic results supporting the discharge/admit diagnosis, lab results, radiology results, the need for further work-up and treatment in the hospital. Response to treatment: the patient's symptoms have mildly improved after treatment, and as a result, I will admit patient. Admission orders: after a detailed discussion of the patient's condition and case, the admit orders are written by me. 07/21 14:33 Order name: Blood Culture Adult (2) rn 07/21 14:33 Order name: CBC with Diff; Complete Time: 15:45 rn 07/21 14:33 Order name: CMP; Complete Time: 15:45 rn 07/21 14:33 Order name: Lactate; Complete Time: 15:45 rn 07/21 14:33 Order name: Protime (+inr); Complete Time: 15:45 rn 07/21 14:33 Order name: Ptt, Activated; Complete Time: 15:45 rn 07/21 14:33 Order name: Urine Culture rn 07/21 14:33 Order name: Urine Microscopic Only; Complete Time: 15:45 rn 07/21 14:33 Order name: Sed Rate; Complete Time: 15:45 rn 07/21 14:33 Order name: CRP; Complete Time: 15:45 rn 07/21 14:34 Order name: SARS RAPID; Complete Time: 15:45 rn 07/21 15:04 Order name: Urine Dipstick-Ancillary; Complete Time: 15:45 EDMS 07/21 15:32 Order name: Glucose, Ancillary Testing; Complete Time: 15:45 EDDE 07/21 16:27 Order name: Basic Metabolic Panel EDDE 07/21 14:33 Order name: XRAY Foot RIGHT 3 View; Complete Time: 15:45 rn 07/21 14:33 Order name: Accucheck; Complete Time: 15:16 rn 07/21 14:33 Order name: XRAY Chest (1 view); Complete Time: 15:56 rn 07/21 16:27 Order name: CONS Physician Consult EDDE 07/21 16:27 Order name: CONS Physician Consult EDMS 07/21 16:27 Order name: 60g Consistent Carbohydrate (ADA 1800/2000) EDMS 07/21 16:27 Order name: Basic Metabolic Panel EDDE 07/21 16:27 Order name: CBC with Automated Diff EDMS 07/21 16:27 Order name: CBC with Automated Diff EDMS 07/21 16:29 Order name: Lower Extremity Arterial Bilat EDMS 07/21 16:29 Order name: Lower Extremity Arterial Bilat EDMS 07/21 17:42 Order name: US EDMS 07/21 14:33 Order name: Cardiac monitoring; Complete Time: 15:09 rn 07/21 14:33 Order name: EKG - Nurse/Tech; Complete Time: 15:09 rn 07/21 14:33 Order name: IV Saline Lock - Large Bore; Complete Time: 14:36 rn 07/21 14:33 Order name: Labs collected and sent; Complete Time: 14:36 rn 07/21 14:33 Order name: O2 Per Protocol; Complete Time: 14:36 rn 07/21 14:33 Order name: O2 Sat Monitoring; Complete Time: 14:36 rn 07/21 14:33 Order name: Urine Dipstick-Ancillary (obtain specimen); Complete Time: 15:53 rn 07/21 14:33 Order name: Vital Signs; Complete Time: 14:36 rn EC:11 Rate is 85 beats/min. Rhythm is regular. QRS [place] is Normal. AL interval is normal. QRS rn interval is normal. QT interval is normal. No Q waves. T waves are Normal. No ST changes noted. Clinical impression: NSR w/ Non-specific ST/T Changes. Interpreted by me. Reviewed by me. Administered Medications: 15:09 Drug: NS 0.9% 500 ml Route: IV; Rate: bolus; Site: left antecubital; ll1 16:09 Follow up: Response: No adverse reaction; IV Status: Completed infusion; IV Intake: ll1 500ml 16:05 Drug: Demerol (meperidine) 25 mg Route: IVP; Site: right antecubital; ll1 17:04 Follow up: Response: No adverse reaction ll1 16:05 Drug: vancoMYCIN 1 grams Route: IVPB; Infused Over: 2 hrs; Site: right antecubital; ll1 18:08 Follow up: Response: No adverse reaction; IV Status: Completed infusion; IV Intake: ll1 250ml Point of Care Testin:40 see results area ll1 Ranges: Critical Glucose Levels:Adult <50 mg/dl or >400 mg/dl <40 mg/dl or >180 mg/dl Disposition Summary: 07/21/22 15:50 Hospitalization Ordered Hospitalization Status: Inpatient Admission rn Provider: Gemma Streeter [facility] rn Condition: Stable rn Problem: new rn Symptoms: have improved rn Bed/Room Type: Standard rn Room Assignment: 207(07/21/22 17:40) dw Diagnosis - Cellulitis of right lower limb rn - Osteomyelitis, unspecified rn - Pneumonia, unspecified organism rn Forms: - Medication Reconciliation Form rn - SBAR form rn NIH Stroke Scale - NIH Stroke Score Date: 07/21/2022 Time: 14:25 Total Score = 0 1a. Level of Consciousness (LOC) - 0(Alert) 1b. Level of Consciousness (LOC) (Month \T\ Age) - 0(Both) 1c. LOC Commands (Open \T\ Closes Eyes/Senior [employer] Network Engineer) - 0(Both) 2. Best Gaze (Lateral Gaze Paresis) - 0(Normal) 3. Visual Field Loss - 0(No visual loss) 4. Facial Palsy - 0(Normal) 5a. Left Arm: Motor (10-second hold) - 0(No drift) 5b. Right Arm: Motor (10-second hold) - 0(No drift) 6a. Left Leg: Motor (5-second hold - always test supine) - 0(No drift) 6b. Right Leg: Motor (5-second hold - always test supine) - 0(No drift) 7. Limb Ataxia (finger/nose \T\ heel/faria - test with eyes open) - 0(Absent) 8. Sensory Loss (pinprick arms/legs/face) - 0(Normal) 9. Best Language: Aphasia (description/naming/reading) - 0(No aphasia) 10. Dysarthria (speech clarity - read or repeat words) - 0(Normal) 11. Extinction and Inattention (visual/tactile/auditory/spatial/personal) - 0(No abnormality) Initials: ll1 Signatures: Dispatcher [employer] EDDE Flakita Payne RN RN Sascha Dawn MD MD rn Lewis, Lynsay, RN RN ll1 Corrections: (The following items were deleted from the chart) 15:49 15:13 Constitutional: This is a well developed, well nourished patient who is rn awake, alert, and in no acute distress. Head/Face: Normocephalic, atraumatic. ENT: dry MM Cardiovascular: Regular rate and rhythm. No pulse deficits. Respiratory: No increased work of breathing, no retractions or nasal flaring. Abdomen/GI: Soft, non-tender Skin: Warm, dry, + purple discoloration of right 4th toe MS/ Extremity: Pulses equal, no cyanosis. right 4th toe with swelling and discoloration Neuro: Awake and alert, GCS 15 rn 17:40 15:50 rn sean
--- NOTE | 2022-07-21 15:52 | RAD REPORT ---
EXAM DESCRIPTION: Jaime Single View07/21/2022 2:49 pm CLINICAL HISTORY: Chest pain COMPARISON: 2020 FINDINGS: [id number] bilateral pulmonary opacities. Heart is probably upper limits normal size. There may be small pleural effusions IMPRESSION: Mild to moderate bilateral pulmonary opacities may represent pneumonia, pulmonary edema or pneumonitis
[2022-07-21] MEDS ORDERED: Levofloxacin500mg IV 500 MG/100 ML BAG IV ONE (16:09)
[2022-07-21] MEDS ORDERED: GLUCAGON 1 MG/VIAL IM PRN (16:22)
[2022-07-21] MEDS ORDERED: ACETAMINOPHEN 500 MG TAB PO PRN (16:22)
[2022-07-21] MEDS ORDERED: D50W 25 GM/50 ML SYRINGE IV PRN (16:22)
--- NOTE | 2022-07-21 16:22 | P.HP ---
Certification for Inpatient Patient admitted to: Inpatient With expected LOS: >2 Midnights Patient will require the following post-hospital care: None Practitioner: I am a practitioner with admitting privileges, knowledge of patient current condition, hospital course, and medical plan of care. Services: Services provided to patient in accordance with Admission requirements found in Title 42 Section 412.3 of the Code of Federal Regulations Patient History Date of Service: 07/21/22 Reason for admission: Osteomyelitis History of Present Illness: Patient is a 66-year-old female who has a history of diabetic foot ulcers and follows up with podiatry. Patient has a history of chronic substance abuse but she has improved. Patient also with COPD. Patient came into the hospital because of weakness. She was having a hard time getting out of bed and ambulating. She had significant ulcerations of her toes. She was found to have osteomyelitis with x-ray showing bone infection. Patient sed rate and C- reactive protein is elevated. Patient will need IV antibiotics. Patient will be admitted to the hospital for further treatment. Allergies codeine [Codeine] Allergy (Intermediate, Verified 07/21/22 21:28) Itching/Hives/Rash flu vaccine Allergy (Uncoded 08/03/19 21:22) Anaphylaxis Home Medications: Clopidogrel Bisulfate [Plavix*] 75 mg PO DAILY 08/03/19 Divalproex ER [Depakote *ER] 250 mg PO BID 08/03/19 Furosemide [Lasix] 40 mg PO DAILY 08/03/19 Insulin Glargine Human [Lantus*] 27 units SQ BEDTIME 08/03/19 Montelukast Sodium 10 mg PO BEDTIME 08/03/19 Pravastatin Sodium 20 mg PO BEDTIME 08/03/19 Sertraline [Zoloft*] 100 mg PO BID 08/03/19 Acetaminophen [Tylenol] 325 mg PO Q8HP PRN 02/20/22 Albuterol Sulfate [Albuterol Sulfate 0.083% Neb Soln] 2.5 mg IH Q6HP PRN 02/20/22 Cetirizine HCl [Zyrtec] 10 mg PO DAILY 02/20/22 Fenofibrate [Tricor] 160 mg PO DAILY 02/20/22 Gabapentin 300 mg PO TID 02/20/22 Tramadol HCl [Ultram] 50 mg PO Q8HP PRN 02/20/22 Trazodone [Desyrel] 150 mg PO BEDTIME 02/20/22 Umeclidinium Brm/Vilanterol Tr [Anoro Ellipta 62.5-25 Mcg INH] 1 each IH DAILY 02/20/22 - Past Medical/Surgical History Diabetic: Yes -: Neuropathy -: Diabetes mellitus type 1 insulin-dependent -: A-Fib not on chronic anti coagulation therapy -: COPD, severe, 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 She also has a common-law partner. She does not work. Patient is DNR. - Family History Father Medical History: Heart disease, Lung disease Mother Medical History: Lung disease, Diabetes - Social History Smoking Status: Former smoker Alcohol use: No CD- Drugs: No Review of Systems 10-point ROS is otherwise unremarkable Physical Examination - Vital Signs Temperature: 98 F Blood Pressure: 140/70 Pulse: 80 Respirations: 18 Pulse Ox (%): 95 - Physical Exam General: Alert, In no apparent distress, Oriented x3 HEENT: Atraumatic, PERRLA, Mucous membr. moist/pink, EOMI, Sclerae nonicteric Neck: Supple, 2+ carotid pulse no bruit, No LAD, Without JVD or thyroid abnormality Respiratory: Diminished, Expiratory wheezes Cardiovascular: Regular rate/rhythm, Normal S1 S2, Systolic murmur Gastrointestinal: Normal bowel sounds, Soft and benign, Non-distended, No tenderness Musculoskeletal: No clubbing, No swelling, Erythema, Tenderness, Warmth Integumentary: Diabetic ulcer Neurological: Normal gait, Normal speech, Normal strength at 5/5 x4 extr, Normal tone, Cranial nerves 3-12 intact, Normal affect, Abnormal sensation Lymphatics: No axilla or inguinal lymphadenopathy - Studies Laboratory Data (last 24 hrs) 07/21/22 14:40: PT 11.7, INR 1.06, APTT 26.7 07/21/22 14:40: Sodium 131 L, Potassium 3.5, BUN 37 H, Creatinine 1.59 H, Glucose 117 H, Total Bilirubin 0.5, AST 9 L, ALT 17, Alkaline Phosphatase 54 07/21/22 14:40: WBC 13.30 H, Hgb 8.0 L, Hct 25.8 L, Plt Count 273 Assessment & Plan - Problems (Diagnosis) (1) Osteomyelitis of foot, right, acute Current Visit: Yes Status: Acute (2) Lung cancer Current Visit: No Status: Acute (3) CHF (congestive heart failure) Current Visit: No Status: Chronic Qualifiers: Qualified Code(s): I50.32 - Chronic diastolic (congestive) heart failure (4) COPD (chronic obstructive pulmonary disease) Onset Date: 08/07/16 Current Visit: No Status: Chronic Qualifiers: COPD type: chronic bronchitis Chronic bronchitis type: unspecified Qualified Code(s): J42 - Unspecified chronic bronchitis (5) Chronic pain Onset Date: 10/13/16 Current Visit: No Status: Chronic Qualifiers: Chronic pain type: chronic pain syndrome (6) Depression with anxiety Onset Date: 06/19/18 Current Visit: No Status: Chronic (7) Diabetes mellitus Current Visit: No Status: Chronic Qualifiers: Diabetes mellitus type: type 2 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 Diabetes mellitus complication status: with neurologic complications Diabetes mellitus complication detail: with unspecified neuropathy Qualified Code(s): E11.40 - Type 2 diabetes mellitus with diabetic neuropathy, unspecified (8) Diastolic CHF, chronic Current Visit: No Status: Chronic (9) Hyperkalemia Current Visit: No Status: Chronic (10) Hyperlipidemia Onset Date: 06/19/18 Current Visit: No Status: Chronic Qualifiers: Hyperlipidemia type: mixed hyperlipidemia Qualified Code(s): E78.2 - Mixed hyperlipidemia (11) Obesity Current Visit: No Status: Chronic Qualifiers: Obesity type: due to excess calories Obesity classification: adult class 1 (BMI 30 - 34.9) Serious obesity comorbidity presence: with serious comorbidity Body mass index: BMI 31.0-31.9 Qualified Code(s): E66.09 - Other obesity due to excess calories; Z68.31 - Body mass index (BMI) 31.0-31.9, adult; Z68.31 - Body mass index (BMI) 31.0-31.9, adult (12) PVD (peripheral vascular disease) Onset Date: 06/19/18 Current Visit: No Status: Chronic (13) Weakness generalized Onset Date: 01/03/16 Current Visit: No Status: Resolved - Plan PLAN: 1. Continue with IV antibiotic 2. Continue with local wound care 3. Podiatry consultation 4. Gentle IV hydration 5. Monitor CBC 6. Strict blood sugar monitoring 7. Pain control 8. Continue with medication for COPD 9. Placement 10. GI and DVT prophylaxis Discharge Plan: Usp Plan to discharge in: Greater than 2 days - Advance Directives Does patient have a Living Will: No Does patient have a Durable POA for Healthcare: No - Code Status/Comfort Care Code Status Assessed: Yes Code Status: Full Code Time Spent Managing PTS Care (In Minutes): 45
[2022-07-21] MEDS: INSULIN -REGULAR HUMAN 50 UNIT/0.5 ML ML SQ SCH ×2 (16:30→21:00)
[2022-07-21] MEDS ORDERED: VANCOMYCIN 1 GM in NA CHLORIDE 0.9% 250 ML IVPB SCH (17:00)
[2022-07-21] MEDS ORDERED: Levofloxacin 750mg IV 750 MG/150 ML BAG IV SCH (17:00)
--- NOTE | 2022-07-21 17:42 | RAD REPORT ---
EXAM DESCRIPTION: US - Lower Extremity Arterial Bilat - 07/21/2022 5:33 pm CLINICAL HISTORY: Leg pain COMPARISON: 2019 FINDINGS: Right common femoral, superficial femoral and popliteal arteries demonstrate biphasic waveforms The right dorsalis pedis artery demonstrates biphasic waveforms Right posterior tibial arterial waveform monophasic The left common femoral, superficial femoral and popliteal arteries demonstrate biphasic waveforms The left posterior tibial and dorsalis pedis arteries demonstrate biphasic waveforms Grayscale, color and spectral analysis performed on all vessels IMPRESSION: Mild to moderate arterial disease involving the distal aspect of the right lower extremi ty Mild disease arterial involving the distal aspect of the left lower extremity
[2022-07-21] MEDS ORDERED: VANCOMYCIN 1.75 GM in NA CHLORIDE 0.9% 500 ML IVPB ONE (18:00)
[2022-07-21] MEDS ORDERED: VANCOMYCIN 750 MG in NA CHLORIDE 0.9% 150 ML IVPB ONE (18:00)
[2022-07-21] MEDS: Levofloxacin 750mg IV 750 MG/150 ML BAG IV SCH (18:00)
[2022-07-21] MEDS: NA CHLORIDE 0.9% 1,000 ML IV SCH (19:58)
[2022-07-21] MEDS: HYDROMORPHONE HCL 1 MG/ML INJ IV PRN (20:31)
[2022-07-21] MEDS: SERTRALINE HCL 100 MG TAB PO SCH (20:34)
[2022-07-21] MEDS: DIVALPROEX ER 250 MG TAB PO SCH (20:34)
[2022-07-21] MEDS: INSULIN GLARGINE 100 UNIT/ML SQ SCH (21:23)
[2022-07-22] MEDS: HYDROMORPHONE HCL 1 MG/ML INJ IV PRN ×4 (00:42→17:08)
[2022-07-22] MEDS: ALBUTEROL 2.5 MG/3 ML NEB SOL NEB PRN (04:51)
[2022-07-22] MEDS: NA CHLORIDE 0.9% 1,000 ML IV SCH ×2 (06:05→09:18)
[2022-07-22 06:13] LABS: Potassium 3.3 mmol/L (3.5-5.1)
[2022-07-22 06:30] LABS: Lymphocytes % 9.4 % (15.3-44.8); MCV 73.3 fL (80-100); MPV 7.7 fL (7.6-11.3); RBC Red Blood Cell Count 2.87 M/uL (3.86-4.86)
[2022-07-22] MEDS: INSULIN -REGULAR HUMAN 50 UNIT/0.5 ML ML SQ SCH ×4 (07:30→21:00)
[2022-07-22] MEDS ORDERED: NA CHLORIDE 0.9% 250 ML ONE (07:38)
[2022-07-22] MEDS: SERTRALINE HCL 100 MG TAB PO SCH ×2 (09:17→21:05)
[2022-07-22] MEDS: DIVALPROEX ER 250 MG TAB PO SCH ×2 (09:17→21:05)
[2022-07-22] MEDS: CLOPIDOGREL 75 MG TABLET PO SCH (09:18)
[2022-07-22] MEDS ORDERED: PNEUMOCOCCAL VACCINE 0.5 ML IMVAC ONE (10:00)
--- NOTE | 2022-07-22 14:45 | P.PN ---
Subjective Date of Service: 07/22/22 Patient with severe anemia. Transfuse 1 unit at this time. Monitor volume status. Work on alf facility placement. Review of Systems 10-point ROS is otherwise unremarkable Physical Examination - Vital Signs Temperature: 98 F Blood Pressure: 140/70 Pulse: 80 Respirations: 18 Pulse Ox (%): 95 - Physical Exam General: Alert, In no apparent distress, Oriented x3 HEENT: Atraumatic, PERRLA, EOMI Neck: Supple, JVD not distended Respiratory: Clear to auscultation bilaterally, Normal air movement Cardiovascular: Regular rate/rhythm, Normal S1 S2 Gastrointestinal: Normal bowel sounds, No tenderness Musculoskeletal: No tenderness Integumentary: No rashes Neurological: Normal speech, Normal tone, Normal affect Lymphatics: No axilla or inguinal lymphadenopathy - Studies Laboratory Data (last 24 hrs) 07/21/22 14:40: PT 11.7, INR 1.06, APTT 26.7 07/21/22 14:40: Sodium 131 L, Potassium 3.5, BUN 37 H, Creatinine 1.59 H, Glucose 117 H, Total Bilirubin 0.5, AST 9 L, ALT 17, Alkaline Phosphatase 54 07/21/22 14:40: WBC 13.30 H, Hgb 8.0 L, Hct 25.8 L, Plt Count 273 Medications List Reviewed: Yes Assessment & Plan - Problems (Diagnosis) (1) Osteomyelitis of foot, right, acute Current Visit: Yes Status: Acute (2) Lung cancer Current Visit: No Status: Acute (3) CHF (congestive heart failure) Current Visit: No Status: Chronic Qualifiers: Qualified Code(s): I50.32 - Chronic diastolic (congestive) heart failure (4) COPD (chronic obstructive pulmonary disease) Onset Date: 08/07/16 Current Visit: No Status: Chronic Qualifiers: COPD type: chronic bronchitis Chronic bronchitis type: unspecified Qualified Code(s): J42 - Unspecified chronic bronchitis (5) Chronic pain Onset Date: 10/13/16 Current Visit: No Status: Chronic Qualifiers: Chronic pain type: chronic pain syndrome (6) Depression with anxiety Onset Date: 06/19/18 Current Visit: No Status: Chronic (7) Diabetes mellitus Current Visit: No Status: Chronic Qualifiers: Diabetes mellitus type: type 2 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 Diabetes mellitus complication status: with neurologic complications Diabetes mellitus complication detail: with unspecified neuropathy Qualified Code(s): E11.40 - Type 2 diabetes mellitus with diabetic neuropathy, unspecified (8) Diastolic CHF, chronic Current Visit: No Status: Chronic (9) Hyperkalemia Current Visit: No Status: Chronic (10) Hyperlipidemia Onset Date: 06/19/18 Current Visit: No Status: Chronic Qualifiers: Hyperlipidemia type: mixed hyperlipidemia Qualified Code(s): E78.2 - Mixed hyperlipidemia (11) Obesity Current Visit: No Status: Chronic Qualifiers: Obesity type: due to excess calories Obesity classification: adult class 1 (BMI 30 - 34.9) Serious obesity comorbidity presence: with serious comorbidity Body mass index: BMI 31.0-31.9 Qualified Code(s): E66.09 - Other obesity due to excess calories; Z68.31 - Body mass index (BMI) 31.0-31.9, adult; Z68.31 - Body mass index (BMI) 31.0-31.9, adult (12) PVD (peripheral vascular disease) Onset Date: 06/19/18 Current Visit: No Status: Chronic (13) Weakness generalized Onset Date: 01/03/16 Current Visit: No Status: Resolved - Plan PLAN: 1. Continue with IV antibiotic 2. Continue with local wound care 3. Podiatry consultation 4. Gentle IV hydration 5. Monitor CBC 6. Strict blood sugar monitoring 7. Pain control 8. Continue with medication for COPD 9. Placement 10. GI and DVT prophylaxis - Advance Directives Does patient have a Living Will: No Does patient have a Durable POA for Healthcare: No - Code Status/Comfort Care Code Status: Full Code
[2022-07-22 15:53] LABS: Hematocrit 23.4 % (36.0-45.0)
[2022-07-22] MEDS: INSULIN GLARGINE 100 UNIT/ML SQ SCH (21:05)
[2022-07-23] MEDS: HYDROMORPHONE HCL 1 MG/ML INJ IV PRN ×4 (00:18→21:44)
[2022-07-23] MEDS: NA CHLORIDE 0.9% 1,000 ML IV SCH ×3 (02:18→17:04)
[2022-07-23] MEDS: ALBUTEROL 2.5 MG/3 ML NEB SOL NEB PRN ×2 (04:50→13:00)
[2022-07-23] MEDS ORDERED: VANCOMYCIN 1.25 GM in NA CHLORIDE 0.9% 250 ML IVPB SCH (06:00)
[2022-07-23 06:17] LABS: Absolute Lymphocytes (CBC) 0.7 K/uL (0.7-4.9); Hematocrit 24.3 % (36.0-45.0); Lymphocytes % 5.9 % (15.3-44.8); MCV 74.3 fL (80-100); MPV 7.9 fL (7.6-11.3); RBC Red Blood Cell Count 3.27 M/uL (3.86-4.86)
[2022-07-23 06:23] LABS: Protime INR 1.21
[2022-07-23 06:56] LABS: Albumin 2.6 g/dL (3.4-5.0); Bilirubin Total 0.5 mg/dL (0.2-1.0); Folic Acid, (Folate) 19.2 ng/mL (3.1-17.5); Magnesium 1.6 mg/dL (1.8-2.4); Phosphorus 2.4 mg/dL (2.5-4.9); Potassium 3.6 mmol/L (3.5-5.1); Protein, Total 7.5 g/dL (6.4-8.2); Thyroid Stimulating Hormone 2.38 uIU/mL (0.360-3.740)
[2022-07-23] MEDS: INSULIN -REGULAR HUMAN 50 UNIT/0.5 ML ML SQ SCH ×4 (07:30→21:00)
[2022-07-23] MEDS ORDERED: MAGNESIUM OXIDE 400 MG TAB PO ONE (07:48)
[2022-07-23] MEDS ORDERED: POTASSIUM CL SA 10 MEQ TAB PO ONE (07:48)
[2022-07-23] MEDS: CLOPIDOGREL 75 MG TABLET PO SCH (08:28)
[2022-07-23] MEDS: SERTRALINE HCL 100 MG TAB PO SCH ×2 (08:28→21:47)
[2022-07-23] MEDS: POTASS/SODIUM PHOSPHATE 1 PKT POWD.PACK PO SCH ×2 (08:29→09:20)
[2022-07-23] MEDS: DIVALPROEX ER 250 MG TAB PO SCH ×2 (08:29→21:47)
[2022-07-23] MEDS: Levofloxacin 750mg IV 750 MG/150 ML BAG IV SCH (17:03)
[2022-07-23] MEDS: INSULIN GLARGINE 100 UNIT/ML SQ SCH (21:51)
[2022-07-24] MEDS: HYDROMORPHONE HCL 1 MG/ML INJ IV PRN ×3 (03:24→22:25)
[2022-07-24 05:22] LABS: Magnesium 1.9 mg/dL (1.8-2.4); Phosphorus 2.6 mg/dL (2.5-4.9); Potassium 4.7 mmol/L (3.5-5.1)
[2022-07-24] MEDS ORDERED: VANCOMYCIN 1.25 GM in NA CHLORIDE 0.9% 250 ML IVPB SCH (06:00)
[2022-07-24 06:37] LABS: Absolute Lymphocytes (CBC) 0.7 K/uL (0.7-4.9); Hematocrit 21.6 % (36.0-45.0); Lymphocytes % 6.5 % (15.3-44.8); MCV 74.5 fL (80-100); MPV 8.3 fL (7.6-11.3)
[2022-07-24] MEDS: INSULIN -REGULAR HUMAN 50 UNIT/0.5 ML ML SQ SCH ×4 (07:30→21:00)
[2022-07-24] MEDS: SERTRALINE HCL 100 MG TAB PO SCH ×2 (08:37→21:06)
[2022-07-24] MEDS: CLOPIDOGREL 75 MG TABLET PO SCH (08:37)
[2022-07-24] MEDS: DIVALPROEX ER 250 MG TAB PO SCH ×2 (08:37→21:06)
--- NOTE | 2022-07-24 10:46 | P.CNS ---
Date of Consult: 07/24/22 Reason for Consult: Right fourth toe cellulitis Chief Complaint: Osteomyelitis History of Present Illness: Right fourth digit erythema and edema Allergies codeine [Codeine] Allergy (Intermediate, Verified 07/21/22 21:28) Itching/Hives/Rash flu vaccine Allergy (Uncoded 08/03/19 21:22) Anaphylaxis Home Medications: Clopidogrel Bisulfate [Plavix*] 75 mg PO DAILY 08/03/19 Divalproex ER [Depakote *ER] 250 mg PO BID 08/03/19 Furosemide [Lasix] 40 mg PO DAILY 08/03/19 Insulin Glargine Human [Lantus*] 27 units SQ BEDTIME 08/03/19 Montelukast Sodium 10 mg PO BEDTIME 08/03/19 Pravastatin Sodium 20 mg PO BEDTIME 08/03/19 Sertraline [Zoloft*] 100 mg PO BID 08/03/19 Acetaminophen [Tylenol] 325 mg PO Q8HP PRN 02/20/22 Albuterol Sulfate [Albuterol Sulfate 0.083% Neb Soln] 2.5 mg IH Q6HP PRN 02/20 Cetirizine HCl [Zyrtec] 10 mg PO DAILY 02/20/22 Fenofibrate [Tricor] 160 mg PO DAILY 02/20/22 Gabapentin 300 mg PO TID 02/20/22 Tramadol HCl [Ultram] 50 mg PO Q8HP PRN 02/20/22 Trazodone [Desyrel] 150 mg PO BEDTIME 02/20/22 Umeclidinium Brm/Vilanterol Tr [Anoro Ellipta 62.5-25 Mcg INH] 1 each IH DAILY 02/20/22 - Past Medical/Surgical History Diabetic: Yes -: Neuropathy -: Diabetes mellitus type 1 insulin-dependent -: A-Fib not on chronic anti coagulation therapy -: COPD, severe, 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 She also has a common-law partner. She does not work. Patient is DNR. - Family History Father Medical History: Heart disease, Lung disease Mother Medical History: Lung disease, Diabetes - Social History Smoking Status: Current some day smoker Alcohol use: No CD- Drugs: No Caffeine use: Yes Place of Residence: Home Review of Systems 10-point ROS is otherwise unremarkable Physical Examination Temp Pulse Resp BP Pulse Ox 97.4 F 81 19 142/76 H 93 07/24/22 08:00 07/24/22 08:00 07/24/22 08:00 07/24/22 08:00 07/24/22 08:00 General: Alert, In no apparent distress, Oriented x3 Cardiovascular: No edema, Normal pulses (Palpable pedal pulses right lower extremity) Capillary refill: <2 Seconds Musculoskeletal: No clubbing, No swelling, No contractures, No erythema, No tenderness, No warmth Integumentary: Diabetic ulcer (Right fourth digit erythema and edema with erythema extending to the fourth mpj, wound distal aspect with eschar noted. ) Neurological: Abnormal sensation Imagings Data: Xray right foot demonstrates possible osteomyelitis distal phalanx right fourth digit. Arterial dopplers right lower extremity reveals mild to moderate arterial disease - Problems (1) Type 2 diabetes mellitus with foot ulcer Current Visit: Yes Status: Acute (2) Osteomyelitis of foot, right, acute Current Visit: Yes Status: Acute Conclusions/Impression: 1. Medihoney to right fourth digit wound 2. Discussed with the patient options of right fourth digit amputation vs iv antibiotics. I feel amputation is in order howerver with comorbidities wound suggest iv antibiotics. Awaiting Infectious Disease input 3. will follow Physician Review: Patient Assessed, Agree with Above Assessment and Plan
--- NOTE | 2022-07-24 11:34 | RAD REPORT ---
EXAM DESCRIPTION: Jaime Single View07/24/2022 10:59 am CLINICAL HISTORY: sob COMPARISON: Jul FINDINGS: Mild to moderate bilateral pulmonary opacities The heart is mildly enlarged Post bilateral pleural effusions IMPRESSION: No significant change in the [id number] bilateral pulmonary opacities
[2022-07-24] MEDS: NA CHLORIDE 0.9% 1,000 ML IV SCH (12:01)
[2022-07-24] MEDS: MEDIHONEY 44 ML TOPICAL TUBE TOP SCH (12:02)
--- NOTE | 2022-07-24 12:17 | EKG ---
Test Date: 2022-07-21 Test Time: 15:08:18 Fluorescent Solution Mixer: DORI MEASUREMENT RESULTS: Intervals: Rate: 85 SC: 124 QRSD: 132 QT: 392 QTc: 466 [place]: P: 62 SC: 124 QRS: 82 T: 39 INTERPRETIVE STATEMENTS: Normal sinus rhythm Right bundle branch block Abnormal ECG Compared to ECG 06/25/2021 15:37:20 No significant changes Electronically Signed On 07-24-22 12:13:27 DIRECTOR OF ONCOLOGY by Dwayne Ngo
[2022-07-24 13:13] LABS: Arterial Blood Carboxyhemoglob 0.6 % (0-1.5); Blood Gas Oxyhemoglobin 91.1 % (94-97)
--- NOTE | 2022-07-24 14:01 | CON ---
History Of Present Illness: This is a 66-year-old female, coming in with osteomyelitis of her right foot fourth toe. The patient has significant past medical history of diabetes mellitus, diabetic osei ropathy and diabetic foot ulcer, hammertoes, and bunion deformity of the left foot on the first metat arsal head. Denies any headache, nausea, vomiting, chest pain, abdominal pain, constipation, or diar [place]. Past Medical History: As per HPI, neuropathy, diabetes mellitus, atrial fibrillation, COPD, depressi on, hyperlipidemia, hypertension, insomnia, chronic back pain, chronic ulcers, left knee replacement, cholecystectomy, right foot surgery and right joint dislocation, complete hysterectomy, eye surgery. Social History: Former smoker. No alcohol use. Family History: Noncontributory. Medications: Levaquin and vancomycin. See MAR for other medications. Allergies: CODEINE AND FLU VACCINE. Review of Systems: A 10-point review was performed. Physical Examination: General: This is a 66-year-old female, lying in bed, not in any acute cardiopulmonary distress. Vital Signs: Temperature 97.8, pulse 85, respirations 18, blood pressure 165/69. HEENT: Unremarkable. Neck: Supple. Lungs: Basal crackles. Heart: S1, S2. Regular. Abdomen: Soft, nontender. Bowel sounds present. Extremity: Right foot fourth toe ulceration noted and left foot first metatarsal head plantar area w ith ulceration also noted. Laboratory Data: Shows WBC 10.7 down from 12.10, hemoglobin 7.5, platelets 244. Chemistry shows sod ium 137, potassium 4.7, chloride 107, bicarb 25, BUN 15, creatinine 1.02, glucose is 82. Micro data; cultures no growth for 24 hours. Assessment And Plan: A 66-year-old female with multiple medical problems, coming in with osteomyelit is of right foot, distal phalanx osteomyelitis, diabetic foot ulcer, diabetic neuropathy, anemia of c hronic disease, chronic obstructive pulmonary disease. Recommend to apply Betadine to the right foot wound and Medihoney with alginate to the left plantar foot wound Sunday, Sunday, Sunday. Keep le gs elevated. Continue antibiotic 6 weeks. If no surgery is performed in 2 weeks, we will follow the patient closely. Thank you Dr. Stephens for consult. TRACEY/LUIS Voice ID: [id number] Report ID: [id number]
--- NOTE | 2022-07-24 15:53 | P.PN ---
Subjective Date of Service: 07/24/22 Chief Complaint: Osteomyelitis No acute events overnight. This morning, she reported shortness of breath. Her SpO2 was 90 % on 2 L nasal cannula. Requested STAT chest x-ray and ABG. Review of Systems 10-point ROS is otherwise unremarkable Respiratory: Shortness of Breath Musculoskeletal: Foot Pain (right) Physical Examination - Vital Signs Temperature: 97.8 F Blood Pressure: 155/69 Pulse: 85 Respirations: 19 Pulse Ox (%): 95 - Physical Exam General: Alert, Oriented x3, Mild distress HEENT: Atraumatic, PERRLA, Mucous membr. moist/pink, EOMI, Sclerae nonicteric Neck: Supple, JVD not distended Respiratory: Diminished, Other (SpO2 90 % on 2 L nasal cannula) Cardiovascular: Regular rate/rhythm, Normal S1 S2, No gallops, No rubs, No murmurs, Edema (trace) Gastrointestinal: Normal bowel sounds, Soft and benign, Non-distended, No tenderness, No rebound, No guarding Musculoskeletal: No clubbing Integumentary: Diabetic ulcer (right fourth toe is erythematous with a small amount of eschar ) Neurological: Normal speech, Cranial nerves 3-12 intact, Normal affect - Studies Medications List Reviewed: Yes Assessment And Plan - Plan # Acute Right Foot Osteomyelitis - Infectious Diseases consulted and spoke with Dr. Butcher - recommendations appreciated - Recommended 6 weeks of vancomycin + cefepime (end date: 09/02/2022) - Podiatry consulted - recommendations appreciated - Right foot x-ray = "no fracture or dislocation is seen. Cortical regularity involves the second terminal tuft. Equivocal cortical regularity involves the fourth terminal tuft of the distal phalanx. These are nonspecific but could indicate osteomyelitis. Post surgical changes involve the first metatarsal." - CM consulted for SNF placement with IV antibiotics # Acute Shortness of Breath with mild Hypoxia (SpO2 90 % on 2 L nasal cannula) # Possible Mild Acute on Chronic Decompensated Diastolic Congestive Heart Failure # Chronic Obstructive Pulmonary Disease # History of Lung Cancer - May have developed pulmonary edema due to continuous fluids - Discontinued and ordered furosemide 20 mg IV x 1 - Ordered STAT ABG, chest x-ray - Monitor respiratory status - Encouraged incentive spirometry - Supplemental oxygen to maintain SpO2 > 92 % # Generalized Weakness with Deconditioning - PT consulted # Type II Diabetes Mellitus - Continue home basal insulin - Correction scale insulin ordered # Peripheral Vascular Disease # Hypertension # Dyslipidemia - Continue clopidogrel - Consider adding statin once strength improves (hold for now to prevent myalgias) # Depression with Anxiety - Continue home divalproex, sertraline Malachi Stephens M.D.
[2022-07-24] MEDS ORDERED: FUROSEMIDE 20 MG/ 2ML VIAL IV ONE (16:06)
[2022-07-24] MEDS: ONDANSETRON 4 MG/2 ML VIAL IV PRN (18:00)
[2022-07-24] MEDS: INSULIN GLARGINE 100 UNIT/ML SQ SCH (21:00)
[2022-07-24] MEDS: CEFEPIME 1 GM in NA CHLORIDE 0.9% 100 ML IV SCH (21:05)
[2022-07-25] MEDS: VANCOMYCIN 1.25 GM in NA CHLORIDE 0.9% 250 ML IVPB SCH ×2 (00:21→18:15)
[2022-07-25 05:04] LABS: Lymphocytes % 15.9 % (15.3-44.8); MCV 74.5 fL (80-100); MPV 7.7 fL (7.6-11.3); RBC Red Blood Cell Count 2.63 M/uL (3.86-4.86)
[2022-07-25 05:08] LABS: Hematocrit 19.6 % (36.0-45.0)
[2022-07-25 05:15] LABS: Potassium 3.6 mmol/L (3.5-5.1)
[2022-07-25] MEDS ORDERED: NA CHLORIDE 0.9% 250 ML IV SCH (06:00)
[2022-07-25] MEDS ORDERED: NA CHLORIDE 0.9% 250 ML ONE (06:00)
[2022-07-25] MEDS: INSULIN -REGULAR HUMAN 50 UNIT/0.5 ML ML SQ SCH ×4 (07:30→21:00)
[2022-07-25] MEDS: CEFEPIME 1 GM in NA CHLORIDE 0.9% 100 ML IV SCH ×2 (08:14→21:13)
[2022-07-25] MEDS: DIVALPROEX ER 250 MG TAB PO SCH ×2 (08:14→21:13)
[2022-07-25] MEDS: SERTRALINE HCL 100 MG TAB PO SCH ×2 (08:15→21:13)
[2022-07-25] MEDS: CLOPIDOGREL 75 MG TABLET PO SCH (08:15)
[2022-07-25] MEDS: MEDIHONEY 44 ML TOPICAL TUBE TOP SCH (08:16)
[2022-07-25] MEDS ORDERED: POTASSIUM CL SA 10 MEQ TAB PO ONE (09:00)
[2022-07-25] MEDS: HYDROMORPHONE HCL 1 MG/ML INJ IV PRN ×3 (09:07→22:17)
[2022-07-25 13:25] LABS: Hematocrit 24.2 % (36.0-45.0)
--- NOTE | 2022-07-25 14:19 | RAD REPORT ---
EXAM DESCRIPTION: RAD - Chest Single View - 07/25/2022 2:08 am CLINICAL HISTORY: 6 years Female, PICC placement COMPARISON: Chest radiograph dated 07/24/2022 IMPRESSION: Placement of right upper extremity PICC terminating in the proximal SVC. Bilateral interstitial opacities. No pleural effusion. No pneumothorax. Cardiomediastinal silhouette is enlarged. No acute osseous abnormality. Electronically signed by: Abram Jones DO 07/25/2022 2:34 AM DAIRY LABORATORY TECHNICIAN Due to temporary technical issues with the PACS/Fluency reporting system, reports are being signed by the in house radiologists without review as a courtesy to insure prompt reporting. The interpreting radiologist is fully responsible for the content of the report.
--- NOTE | 2022-07-25 17:02 | PN ---
Subjective: The patient is lying in bed. Denies any headache, nausea, vomiting, chest pain, abdomin al pain, constipation, or diarrhea. Continued to be short of breath. Objective: Vital Signs: Reviewed. Lungs: Basal crackles. Heart: S1, S2. Regular. Abdomen: Soft, nontender. Bowel sounds present. Extremity: Wound noted. Laboratory Data: Reviewed. Assessment And Plan: Osteomyelitis of right foot and diabetic foot ulceration, diabetic neuropathy, anemia. Consider on transferring the patient to long-term acute care. The patient has agreed. We w ill recommend hyperbaric and IV antibiotic for 6 weeks. We will follow the patient closely. NF/MODL Voice ID: [id number] Report ID: [id number]
[2022-07-25 17:41] LABS: Hematocrit 28.3 % (36.0-45.0)
--- NOTE | 2022-07-25 18:36 | P.PN ---
Subjective Date of Service: 07/25/22 Chief Complaint: Osteomyelitis No acute events overnight. She reports that her pain is well controlled. She no longer has any shortness of breath. Her SpO2 was 94 % on 3 L nasal cannula. Review of Systems 10-point ROS is otherwise unremarkable Respiratory: Shortness of Breath (mild, improved) Musculoskeletal: Foot Pain (right) Physical Examination - Vital Signs Temperature: 97.3 F Blood Pressure: 150/61 Pulse: 74 Respirations: 18 Pulse Ox (%): 94 (3 L) - Studies Medications List Reviewed: Yes Assessment And Plan - Plan - Physical Exam General: Alert, Oriented x3, No distress HEENT: Atraumatic, PERRLA, Mucous membr. moist/pink, EOMI, Sclerae nonicteric Neck: Supple, JVD not distended Respiratory: Diminished, Other (SpO2 94 % on 3 L nasal cannula) Cardiovascular: Regular rate/rhythm, Normal S1 S2, No gallops, No rubs, No murmurs, Edema (trace) Gastrointestinal: Normal bowel sounds, Soft and benign, Non-distended, No tenderness, No rebound, No guarding Musculoskeletal: No clubbing Integumentary: Diabetic ulcer (right fourth toe is erythematous with a small amount of eschar) Neurological: Normal speech, Cranial nerves 3-12 intact, Normal affect # Acute Right Foot Osteomyelitis - Podiatry consulted - recommendations appreciated - Dr. Peterson recommends IV antibiotics over amputation given multiple comorbidities - Infectious Diseases consulted and spoke with Dr. Butcher - recommendations appreciated - Recommended 6 weeks of vancomycin + cefepime (end date: 09/02/2022) - Dr. Butcher recommended LTAC placement, and she is agreeable - CM management - Right foot x-ray = "no fracture or dislocation is seen. Cortical regularity involves the second terminal tuft. Equivocal cortical regularity involves the fourth terminal tuft of the distal phalanx. These are nonspecific but could indicate osteomyelitis. Post surgical changes involve the first metatarsal." # Possible Mild Acute on Chronic Decompensated Diastolic Congestive Heart Failure (improved) # Chronic Obstructive Pulmonary Disease # History of Lung Cancer - May have developed pulmonary edema due to continuous fluids - Monitor respiratory status - Encouraged incentive spirometry - Supplemental oxygen to maintain SpO2 > 92 % # Generalized Weakness with Deconditioning - PT consulted # Type II Diabetes Mellitus - Continue home basal insulin - Correction scale insulin ordered # Peripheral Vascular Disease # Hypertension # Dyslipidemia - Continue clopidogrel - Consider adding statin once strength improves (hold for now to prevent myalgias) # Depression with Anxiety - Continue home divalproex, sertraline Malachi Stephens M.D.
[2022-07-25] MEDS: INSULIN GLARGINE 100 UNIT/ML SQ SCH (21:00)
[2022-07-26] MEDS: TRAZODONE 150 MG TAB PO SCH ×2 (02:30→21:01)
[2022-07-26 05:50] LABS: Potassium 3.8 mmol/L (3.5-5.1)
[2022-07-26 05:52] LABS: Hematocrit 22.9 % (36.0-45.0); Lymphocytes % 14.1 % (15.3-44.8); MCV 75.5 fL (80-100); MPV 7.6 fL (7.6-11.3); RBC Red Blood Cell Count 3.04 M/uL (3.86-4.86)
[2022-07-26] MEDS: INSULIN -REGULAR HUMAN 50 UNIT/0.5 ML ML SQ SCH ×4 (07:30→21:00)
[2022-07-26] MEDS ORDERED: POTASSIUM CL SA 10 MEQ TAB PO ONE (09:00)
[2022-07-26] MEDS: HYDROMORPHONE HCL 1 MG/ML INJ IV PRN ×3 (09:18→18:47)
[2022-07-26] MEDS: DIVALPROEX ER 250 MG TAB PO SCH ×2 (09:19→21:01)
[2022-07-26] MEDS: CEFEPIME 1 GM in NA CHLORIDE 0.9% 100 ML IV SCH ×2 (09:19→21:08)
[2022-07-26] MEDS: SERTRALINE HCL 100 MG TAB PO SCH ×2 (09:19→21:01)
[2022-07-26] MEDS: CLOPIDOGREL 75 MG TABLET PO SCH (09:19)
[2022-07-26] MEDS: MEDIHONEY 44 ML TOPICAL TUBE TOP SCH (09:20)
[2022-07-26] MEDS: VANCOMYCIN 1.25 GM in NA CHLORIDE 0.9% 250 ML IVPB SCH (13:38)
--- NOTE | 2022-07-26 16:18 | PN ---
Subjective: The patient is lying in bed. No new acute event. Chart reviewed. Denies any headache, nausea, vomiting, chest pain, abdominal pain, constipation, or diarrhea. Objective: Vital Signs: Temperature 97.8, pulse 80, respirations 14, blood pressure 153/65. Lungs: Clear to auscultation. Lungs: Basal crackles. Heart: S1, S2. Regular. Abdomen: Soft, nontender. Bowel sounds present. Extremity: Right 4th toe wound and ulceration noted. Erythematous changes have decreased significan tly. Left foot ulceration at first metatarsal plantar area also noted. Laboratory Data: Shows WBC 7.2, hemoglobin 7.5, platelets are 294. BUN is 11, creatinine 0.9. Medications: The patient is currently on vancomycin and cefepime. Assessment And Plan: Osteomyelitis of right 4th toe and cellulitis of right foot, improving. Contin ue IV antibiotic. Left foot first metatarsal head plantar side diabetic foot ulcer. Recommend to co ntinue Medihoney with alginate, right foot to be applied with Betadine, cover both wounds with gauze, change wound dressing Sunday, Sunday, Sunday. We will follow the patient as needed. NF/MODL Voice ID: [id number] Report ID: [id number]
--- NOTE | 2022-07-26 17:33 | P.PN ---
Subjective Date of Service: 07/26/22 Chief Complaint: Osteomyelitis No acute events overnight. She reports that her pain is slightly worse today. She is agreeable to discharge to LTAC per Dr. Butcher's recommendations. Appreciate case management assistance. Review of Systems 10-point ROS is otherwise unremarkable Musculoskeletal: Foot Pain (right) Physical Examination - Vital Signs Temperature: 97.1 F Blood Pressure: 187/76 Pulse: 77 Respirations: 18 Pulse Ox (%): 96 - Studies Microbiology Data (last 24 hrs): 07/21/22 15:00 Blood - Blood Aerobic Blood Culture - Final No growth in 5 days. 07/21/22 15:00 Blood - Blood Anaerobic Blood Culture - Final No growth in 5 days. 07/21/22 14:40 Blood - Blood Aerobic Blood Culture - Final No growth in 5 days. 07/21/22 14:40 Blood - Blood Anaerobic Blood Culture - Final No growth in 5 days. Medications List Reviewed: Yes Assessment And Plan - Plan - Physical Exam General: Alert, Oriented x3, No distress HEENT: Atraumatic, PERRLA, Mucous membr. moist/pink, EOMI, Sclerae nonicteric Neck: Supple, JVD not distended Respiratory: Diminished, Other (SpO2 96 % on 3 L nasal cannula) Cardiovascular: Regular rate/rhythm, Normal S1 S2, No gallops, No rubs, No murmurs, Edema (trace) Gastrointestinal: Normal bowel sounds, Soft and benign, Non-distended, No tenderness, No rebound, No guarding Musculoskeletal: No clubbing Integumentary: Diabetic ulcer (right fourth toe is erythematous with a small amount of eschar) Neurological: Normal speech, Cranial nerves 3-12 intact, Normal affect # Acute Right Foot Osteomyelitis - Podiatry consulted - recommendations appreciated - Dr. Peterson recommends IV antibiotics over amputation given multiple comorbidities - Infectious Diseases consulted and spoke with Dr. Butcher - recommendations appreciated - Recommended 6 weeks of vancomycin + cefepime (end date: 09/02/2022) - Dr. Butcher recommended LTAC placement, and she is agreeable - CM management - Right foot x-ray = "no fracture or dislocation is seen. Cortical regularity involves the second terminal tuft. Equivocal cortical regularity involves the fourth terminal tuft of the distal phalanx. These are nonspecific but could indicate osteomyelitis. Post surgical changes involve the first metatarsal." # Possible Mild Acute on Chronic Decompensated Diastolic Congestive Heart Failure (improved) # Chronic Obstructive Pulmonary Disease # History of Lung Cancer - May have developed pulmonary edema due to continuous fluids - Monitor respiratory status - Encouraged incentive spirometry - Supplemental oxygen to maintain SpO2 > 92 % # Generalized Weakness with Deconditioning - PT consulted # Type II Diabetes Mellitus - Continue home basal insulin - Correction scale insulin ordered # Peripheral Vascular Disease # Hypertension # Dyslipidemia - Continue clopidogrel - Consider adding statin once strength improves (hold for now to prevent myalgias) # Depression with Anxiety - Continue home divalproex, sertraline No new changes today. Waiting for LTAC placement. Malachi Stephens M.D.
[2022-07-26 18:12] VITALS: BMI 28.1
[2022-07-26] MEDS: INSULIN GLARGINE 100 UNIT/ML SQ SCH (21:01)
[2022-07-27] MEDS: HYDROMORPHONE HCL 1 MG/ML INJ IV PRN (04:36)
[2022-07-27] MEDS: VANCOMYCIN 1.25 GM in NA CHLORIDE 0.9% 250 ML IVPB SCH (05:02)
[2022-07-27 05:28] LABS: Potassium 3.9 mmol/L (3.5-5.1)
[2022-07-27] MEDS: INSULIN -REGULAR HUMAN 50 UNIT/0.5 ML ML SQ SCH ×4 (07:30→21:00)
[2022-07-27] MEDS ORDERED: POTASSIUM CL SA 10 MEQ TAB PO ONE (09:00)
[2022-07-27] MEDS: CEFEPIME 1 GM in NA CHLORIDE 0.9% 100 ML IV SCH ×2 (09:29→20:08)
[2022-07-27] MEDS: DIVALPROEX ER 250 MG TAB PO SCH ×2 (09:30→20:07)
[2022-07-27] MEDS: HYDROMORPHONE HCL 0.5 MG/0.5 ML INJ IV PRN ×3 (09:30→21:31)
[2022-07-27] MEDS: SERTRALINE HCL 100 MG TAB PO SCH ×2 (09:30→20:07)
[2022-07-27] MEDS: CLOPIDOGREL 75 MG TABLET PO SCH (09:31)
[2022-07-27] MEDS: MEDIHONEY 44 ML TOPICAL TUBE TOP SCH (09:31)
[2022-07-27] MEDS: ONDANSETRON 4 MG/2 ML VIAL IV PRN ×2 (09:43→16:44)
--- NOTE | 2022-07-27 11:33 | P.PN ---
Subjective Date of Service: 07/27/22 Chief Complaint: Osteomyelitis No acute events overnight. She is sitting up comfortably eating breakfast this morning. She is awaiting placement into LTAC. Appreciate case management assistance. Review of Systems 10-point ROS is otherwise unremarkable Musculoskeletal: Foot Pain (mild, right) Physical Examination - Vital Signs Temperature: 97.1 F Blood Pressure: 164/77 Pulse: 71 Respirations: 22 Pulse Ox (%): 93 - Studies Microbiology Data (last 24 hrs): 07/21/22 15:00 Blood - Blood Aerobic Blood Culture - Final No growth in 5 days. 07/21/22 15:00 Blood - Blood Anaerobic Blood Culture - Final No growth in 5 days. 07/21/22 14:40 Blood - Blood Aerobic Blood Culture - Final No growth in 5 days. 07/21/22 14:40 Blood - Blood Anaerobic Blood Culture - Final No growth in 5 days. Medications List Reviewed: Yes Assessment And Plan - Plan - Physical Exam General: Alert, Oriented x3, No distress HEENT: Atraumatic, PERRLA, Mucous membr. moist/pink, EOMI, Sclerae nonicteric Neck: Supple, JVD not distended Respiratory: Diminished, Other (SpO2 96 % on 3 L nasal cannula) Cardiovascular: Regular rate/rhythm, Normal S1 S2, No gallops, No rubs, No murmurs, Edema (trace) Gastrointestinal: Normal bowel sounds, Soft and benign, Non-distended, No tenderness, No rebound, No guarding Musculoskeletal: No clubbing Integumentary: Diabetic ulcer (right fourth toe is erythematous with a small amount of eschar) Neurological: Normal speech, Cranial nerves 3-12 intact, Normal affect # Acute Right Foot Osteomyelitis - Podiatry consulted - recommendations appreciated - Dr. Peterson recommends IV antibiotics over amputation given multiple comorbidities - Infectious Diseases consulted and spoke with Dr. Butcher - recommendations appreciated - Recommended 6 weeks of vancomycin + cefepime (end date: 09/02/2022) - Dr. Butcher recommended LTAC placement, and she is agreeable - CM management - Right foot x-ray = "no fracture or dislocation is seen. Cortical regularity involves the second terminal tuft. Equivocal cortical regularity involves the fourth terminal tuft of the distal phalanx. These are nonspecific but could indicate osteomyelitis. Post surgical changes involve the first metatarsal." # Possible Mild Acute on Chronic Decompensated Diastolic Congestive Heart Failure (improved) # Chronic Obstructive Pulmonary Disease # History of Lung Cancer - May have developed pulmonary edema due to continuous fluids - Monitor respiratory status - Encouraged incentive spirometry - Supplemental oxygen to maintain SpO2 > 92 % # Generalized Weakness with Deconditioning - PT consulted # Type II Diabetes Mellitus - Continue home basal insulin - Correction scale insulin ordered # Peripheral Vascular Disease # Hypertension # Dyslipidemia - Continue clopidogrel - Consider adding statin once strength improves (hold for now to prevent myalgias) # Depression with Anxiety - Continue home divalproex, sertraline No new changes today. Cleared for discharge once accepted to LTAC. Malachi Stephens M.D.
[2022-07-27] MEDS: TRAZODONE 150 MG TAB PO SCH (20:07)
[2022-07-27] MEDS: DOCUSATE NA 100 MG CAP PO SCH (20:08)
[2022-07-27] MEDS: GLUCERNA SHAKE 237 ML CAN PO SCH (21:32)
[2022-07-27] MEDS: INSULIN GLARGINE 100 UNIT/ML SQ SCH (21:32)
[2022-07-28] MEDS: HYDROMORPHONE HCL 0.5 MG/0.5 ML INJ IV PRN ×4 (03:55→18:50)
[2022-07-28] MEDS: ALBUTEROL 2.5 MG/3 ML NEB SOL NEB PRN ×2 (04:15→19:35)
[2022-07-28] MEDS: INSULIN -REGULAR HUMAN 50 UNIT/0.5 ML ML SQ SCH ×4 (07:30→21:00)
[2022-07-28] MEDS: DOCUSATE NA 100 MG CAP PO SCH ×2 (09:00→20:01)
[2022-07-28] MEDS: GLUCERNA SHAKE 237 ML CAN PO SCH ×2 (09:31→20:08)
[2022-07-28] MEDS: CEFEPIME 1 GM in NA CHLORIDE 0.9% 100 ML IV SCH ×2 (09:31→20:01)
[2022-07-28] MEDS: ONDANSETRON 4 MG/2 ML VIAL IV PRN ×2 (09:32→18:50)
[2022-07-28] MEDS: CLOPIDOGREL 75 MG TABLET PO SCH (09:32)
[2022-07-28] MEDS: SERTRALINE HCL 100 MG TAB PO SCH ×2 (09:32→20:01)
[2022-07-28] MEDS: DIVALPROEX ER 250 MG TAB PO SCH ×2 (09:32→20:01)
[2022-07-28] MEDS: MEDIHONEY 44 ML TOPICAL TUBE TOP SCH (09:34)
--- NOTE | 2022-07-28 16:27 | PN ---
Subjective: Patient lying in bed. No new acute event. Denies any headache, nausea, vomiting, chest pain, abdominal pain, constipation, or diarrhea. Objective: Vital Signs: Temperature 97, pulse 83, respirations 19, blood pressure 165/87. Lungs: Basal crackles. Heart: S1, S2. Regular. Abdomen: Soft, nontender. Bowel sounds present. Extremity: Wounds noted. Laboratory Data: Reviewed. Assessment And Plan: Osteomyelitis of foot and diabetic foot ulcer. Anemia of chronic disease. Rosmeary betic neuropathy and diabetes mellitus. Continue supportive care and antibiotic for a total of 6 wee ks. Consider hyperbaric and long-term acute care. Continue Medihoney with Betadine to the wound sit e. NF/MODL Voice ID: [id number] Report ID: [id number]
[2022-07-28] MEDS: VANCOMYCIN 1.25 GM in NA CHLORIDE 0.9% 250 ML IVPB SCH ×3 (17:45)
--- NOTE | 2022-07-28 19:39 | P.PN ---
Subjective Date of Service: 07/28/22 Chief Complaint: Osteomyelitis No acute events overnight. She reports that her pain is well controlled. She is awaiting placement into LTAC. Review of Systems 10-point ROS is otherwise unremarkable Musculoskeletal: Foot Pain (right) Physical Examination - Vital Signs Temperature: 97.5 F Blood Pressure: 160/59 Pulse: 73 Respirations: 16 Pulse Ox (%): 95 - Studies Medications List Reviewed: Yes Assessment And Plan - Plan - Physical Exam General: Alert, Oriented x3, No distress HEENT: Atraumatic, PERRLA, Mucous membr. moist/pink, EOMI, Sclerae nonicteric Neck: Supple, JVD not distended Respiratory: Diminished, otherwise clear to auscultation bilaterally Cardiovascular: Regular rate/rhythm, Normal S1 S2, No gallops, No rubs, No murmurs, Edema (trace) Gastrointestinal: Normal bowel sounds, Soft and benign, Non-distended, No tender ness, No rebound, No guarding Musculoskeletal: No clubbing Integumentary: Diabetic ulcer (right fourth toe is erythematous with a small amount of eschar) Neurological: Normal speech, Cranial nerves 3-12 intact, Normal affect # Acute Right Foot Osteomyelitis - Podiatry consulted - recommendations appreciated - Dr. Peterson recommends IV antibiotics over amputation given multiple comorbidities - Infectious Diseases consulted and spoke with Dr. Butcher - recommendations appr eciated - Recommended 6 weeks of vancomycin + cefepime (end date: 09/02/2022) - Dr. Butcher recommended LTAC placement, and she is agreeable - CM management - Right foot x-ray = "no fracture or dislocation is seen. Cortical regularity involves the second terminal tuft. Equivocal cortical regularity involves the fourth terminal tuft of the distal phalanx. These are nonspecific but could indicate osteomyelitis. Post surgical changes involve the first metatarsal." # Possible Mild Acute on Chronic Decompensated Diastolic Congestive Heart Failure (improved) # Chronic Obstructive Pulmonary Disease # History of Lung Cancer - May have developed pulmonary edema due to continuous fluids - Monitor respiratory status - Encouraged incentive spirometry - Supplemental oxygen to maintain SpO2 > 92 % # Generalized Weakness with Deconditioning - PT consulted # Type II Diabetes Mellitus - Continue home basal insulin - Correction scale insulin ordered # Peripheral Vascular Disease # Hypertension # Dyslipidemia - Continue clopidogrel - Consider adding statin once strength improves (hold for now to prevent myalgias) # Depression with Anxiety - Continue home divalproex, sertraline No new changes today. Cleared for discharge once accepted to LTAC. Malachi Stephens M.D.
[2022-07-28] MEDS: TRAZODONE 150 MG TAB PO SCH (20:01)
[2022-07-28] MEDS: INSULIN GLARGINE 100 UNIT/ML SQ SCH (21:00)
[2022-07-29] MEDS: HYDROMORPHONE HCL 0.5 MG/0.5 ML INJ IV PRN ×5 (00:43→21:39)
[2022-07-29] MEDS: ALBUTEROL 2.5 MG/3 ML NEB SOL NEB PRN ×2 (05:50→20:15)
[2022-07-29] MEDS: ONDANSETRON 4 MG/2 ML VIAL IV PRN ×2 (06:25→16:28)
[2022-07-29] MEDS: INSULIN -REGULAR HUMAN 50 UNIT/0.5 ML ML SQ SCH ×4 (07:30→21:00)
[2022-07-29] MEDS: CEFEPIME 1 GM in NA CHLORIDE 0.9% 100 ML IV SCH ×2 (09:01→22:00)
[2022-07-29] MEDS: SERTRALINE HCL 100 MG TAB PO SCH ×2 (09:01→22:01)
[2022-07-29] MEDS: CLOPIDOGREL 75 MG TABLET PO SCH (09:01)
[2022-07-29] MEDS: DIVALPROEX ER 250 MG TAB PO SCH ×2 (09:01→22:01)
[2022-07-29] MEDS: DOCUSATE NA 100 MG CAP PO SCH ×2 (09:01→22:01)
[2022-07-29] MEDS: GLUCERNA SHAKE 237 ML CAN PO SCH ×2 (09:02→22:02)
[2022-07-29] MEDS: MEDIHONEY 44 ML TOPICAL TUBE TOP SCH (09:02)
[2022-07-29] MEDS: VANCOMYCIN 1.25 GM in NA CHLORIDE 0.9% 250 ML IVPB SCH (13:01)
--- NOTE | 2022-07-29 17:16 | P.PN ---
Subjective Date of Service: 07/29/22 Chief Complaint: Osteomyelitis No acute events overnight. She denies any particular concerns this morning. She is awaiting placement into LTAC. Review of Systems 10-point ROS is otherwise unremarkable Musculoskeletal: Foot Pain (right) Physical Examination - Vital Signs Temperature: 98.3 F Blood Pressure: 156/63 Pulse: 74 Respirations: 18 Pulse Ox (%): 94 - Studies Medications List Reviewed: Yes Assessment And Plan - Plan - Physical Exam General: Alert, Oriented x3, No distress HEENT: Atraumatic, PERRLA, Mucous membr. moist/pink, EOMI, Sclerae nonicteric Neck: Supple, JVD not distended Respiratory: Diminished, otherwise clear to auscultation bilaterally Cardiovascular: Regular rate/rhythm, Normal S1 S2, No gallops, No rubs, No murmurs, Edema (trace) Gastrointestinal: Normal bowel sounds, Soft and benign, Non-distended, No ten derness, No rebound, No guarding Musculoskeletal: No clubbing Integumentary: Diabetic ulcer covered in clean dressing Neurological: Normal speech, Cranial nerves 3-12 intact, Normal affect # Acute Right Foot Osteomyelitis - Podiatry consulted - recommendations appreciated - Dr. Peterson recommends IV antibiotics over amputation given multiple comorbidities - Infectious Diseases consulted and spoke with Dr. Butcher - recommendations appreciated - Recommended 6 weeks of vancomycin + cefepime (end date: 09/02/2022) - Dr. Butcher recommended LTAC placement, and she is agreeable - CM management - Right foot x-ray = "no fracture or dislocation is seen. Cortical regularity involves the second terminal tuft. Equivocal cortical regularity involves the fourth terminal tuft of the distal phalanx. These are nonspecific but could indicate osteomyelitis. Post surgical changes involve the first metatarsal." # Possible Mild Acute on Chronic Decompensated Diastolic Congestive Heart Failure (improved) # Chronic Obstructive Pulmonary Disease # History of Lung Cancer - May have developed pulmonary edema due to continuous fluids - Monitor respiratory status - Encouraged incentive spirometry - Supplemental oxygen to maintain SpO2 > 92 % # Generalized Weakness with Deconditioning - PT consulted # Type II Diabetes Mellitus - Continue home basal insulin - Correction scale insulin ordered # Peripheral Vascular Disease # Hypertension # Dyslipidemia - Continue clopidogrel - Consider adding statin once strength improves (hold for now to prevent myalgias) # Depression with Anxiety - Continue home divalproex, sertraline No new changes today. Cleared for discharge once accepted to LTAC. Malachi Stephens M.D.
[2022-07-29] MEDS: INSULIN GLARGINE 100 UNIT/ML SQ SCH (21:00)
[2022-07-29] MEDS: TRAZODONE 150 MG TAB PO SCH (21:00)
[2022-07-30] MEDS: HYDROMORPHONE HCL 0.5 MG/0.5 ML INJ IV PRN ×5 (05:00→23:22)
[2022-07-30 05:34] LABS: Absolute Lymphocytes (CBC) 1.3 K/uL (0.7-4.9); Hematocrit 24.4 % (36.0-45.0); Lymphocytes % 17.6 % (15.3-44.8); MCV 76.4 fL (80-100); MPV 7.3 fL (7.6-11.3); RBC Red Blood Cell Count 3.19 M/uL (3.86-4.86)
[2022-07-30 06:00] LABS: Potassium 4.7 mmol/L (3.5-5.1)
[2022-07-30] MEDS: VANCOMYCIN 1.25 GM in NA CHLORIDE 0.9% 250 ML IVPB SCH (06:15)
[2022-07-30] MEDS: INSULIN -REGULAR HUMAN 50 UNIT/0.5 ML ML SQ SCH ×4 (07:30→21:00)
[2022-07-30] MEDS: SERTRALINE HCL 100 MG TAB PO SCH ×2 (08:28→21:08)
[2022-07-30] MEDS: DOCUSATE NA 100 MG CAP PO SCH ×2 (08:28→21:07)
[2022-07-30] MEDS: DIVALPROEX ER 250 MG TAB PO SCH ×2 (08:28→21:07)
[2022-07-30] MEDS: CLOPIDOGREL 75 MG TABLET PO SCH (08:29)
[2022-07-30] MEDS: CEFEPIME 1 GM in NA CHLORIDE 0.9% 100 ML IV SCH ×2 (08:29→21:05)
[2022-07-30] MEDS: GLUCERNA SHAKE 237 ML CAN PO SCH ×2 (08:29→21:09)
[2022-07-30] MEDS: MEDIHONEY 44 ML TOPICAL TUBE TOP SCH (08:29)
--- NOTE | 2022-07-30 12:21 | P.PN ---
Subjective Date of Service: 07/30/22 Chief Complaint: Osteomyelitis No acute events overnight. She states that she is doing well. She reports no pain in her foot this morning. She remains on IV antibiotics. She is awaiting placement into LTAC. Review of Systems 10-point ROS is otherwise unremarkable Integumentary: Other (right foot wound) Physical Examination - Vital Signs Temperature: 97.4 F Blood Pressure: 182/74 Pulse: 77 Respirations: 18 Pulse Ox (%): 94 - Studies Medications List Reviewed: Yes Assessment And Plan - Plan - Physical Exam General: Alert, Oriented x3, No distress HEENT: Atraumatic, PERRLA, Mucous membr. moist/pink, EOMI, Sclerae nonicteric Neck: Supple, JVD not distended Respiratory: Diminished, otherwise clear to auscultation bilaterally Cardiovascular: Regular rate/rhythm, Normal S1 S2, No gallops, No rubs, No murmurs, Edema (trace-1+) Gastrointestinal: Normal bowel sounds, Soft and benign, Non-distended, No tenderness, No rebound, No guarding Musculoskeletal: No clubbing Integumentary: Diabetic ulcer covered in clean dressing Neurological: Normal speech, Cranial nerves 3-12 intact, Normal affect # Acute Right Foot Osteomyelitis - Podiatry consulted - recommendations appreciated - Dr. Peterson recommends IV antibiotics over amputation given multiple comorbidities - Infectious Diseases consulted and spoke with Dr. Butcher - recommendations appreciated - Recommended 6 weeks of vancomycin + cefepime (end date: 09/02/2022) - Dr. Butcher recommended LTAC placement, and she is agreeable - CM management consulted - appreciate assistance - Right foot x-ray = "no fracture or dislocation is seen. Cortical regularity involves the second terminal tuft. Equivocal cortical regularity involves the fourth terminal tuft of the distal phalanx. These are nonspecific but could indicate osteomyelitis. Post surgical changes involve the first metatarsal." # Possible Mild Acute on Chronic Decompensated Diastolic Congestive Heart Failure (improved) # Chronic Obstructive Pulmonary Disease # History of Lung Cancer - May have developed pulmonary edema due to continuous fluids - Monitor respiratory status - Encouraged incentive spirometry - Supplemental oxygen to maintain SpO2 > 92 % # Generalized Weakness with Deconditioning - PT consulted # Type II Diabetes Mellitus - Continue home basal insulin - Correction scale insulin ordered # Peripheral Vascular Disease # Hypertension # Dyslipidemia - Continue clopidogrel - Consider adding statin once strength improves (hold for now to prevent myalgias) # Depression with Anxiety - Continue home divalproex, sertraline No new changes today. Cleared for discharge once accepted to LTAC. Malachi Stephens M.D.
[2022-07-30] MEDS: ONDANSETRON 4 MG/2 ML VIAL IV PRN (14:45)
[2022-07-30] MEDS ORDERED: HYDRALAZINE HCL 20 MG/ML VIAL IV ONE (15:49)
[2022-07-30] MEDS: INSULIN GLARGINE 100 UNIT/ML SQ SCH (21:00)
[2022-07-30] MEDS: TRAZODONE 150 MG TAB PO SCH (21:00)
[2022-07-31] MEDS: VANCOMYCIN 1.25 GM in NA CHLORIDE 0.9% 250 ML IVPB SCH (02:56)
[2022-07-31] MEDS: HYDROMORPHONE HCL 0.5 MG/0.5 ML INJ IV PRN ×5 (02:57→17:33)
[2022-07-31] MEDS: INSULIN -REGULAR HUMAN 50 UNIT/0.5 ML ML SQ SCH ×4 (07:30→21:00)
[2022-07-31] MEDS: DIVALPROEX ER 250 MG TAB PO SCH ×2 (08:41→21:22)
[2022-07-31] MEDS: CLOPIDOGREL 75 MG TABLET PO SCH (08:42)
[2022-07-31] MEDS: DOCUSATE NA 100 MG CAP PO SCH ×2 (08:42→21:22)
[2022-07-31] MEDS: SERTRALINE HCL 100 MG TAB PO SCH ×2 (08:57→21:22)
[2022-07-31] MEDS: ALBUTEROL 2.5 MG/3 ML NEB SOL NEB PRN (09:28)
[2022-07-31] MEDS: CEFEPIME 2 GM in NA CHLORIDE 0.9% 100 ML IV SCH ×2 (10:38→21:15)
[2022-07-31] MEDS: GLUCERNA SHAKE 237 ML CAN PO SCH ×2 (10:38→21:23)
[2022-07-31] MEDS: MEDIHONEY 44 ML TOPICAL TUBE TOP SCH (10:39)
[2022-07-31] MEDS: ONDANSETRON 4 MG/2 ML VIAL IV PRN (17:46)
[2022-07-31] MEDS ORDERED: VANCOMYCIN 1.25 GM in NA CHLORIDE 0.9% 250 ML IVPB SCH (18:00)
[2022-07-31] MEDS: GABAPENTIN 100 MG CAP PO SCH (21:22)
[2022-07-31] MEDS: TRAZODONE 150 MG TAB PO SCH (21:22)
[2022-07-31] MEDS: INSULIN GLARGINE 100 UNIT/ML SQ SCH (21:24)
[2022-08-01] MEDS: VANCOMYCIN 1.5 GM in NA CHLORIDE 0.9% 500 ML IVPB SCH (01:22)
--- NOTE | 2022-08-01 01:56 | PN ---
Subjective: Patient lying in bed. No new acute event. Chart reviewed. Objective: Vital Signs: Reviewed. Lungs: Basal crackles. Heart: S1, S2 regular. Abdomen: Soft, nontender. Bowel sounds present. Extremities: No edema. Wounds noted. Laboratory Data: Reviewed. WBC 7.2, hemoglobin 7.9, platelets 243. BUN 14, creatinine 1. Medications: Currently on vancomycin and cefepime. Assessment And Plan: Osteomyelitis of right foot and diabetic foot ulcer, diabetic neuropathy, anemi a of chronic disease, moderate protein-calorie malnourishment. Continue antibiotic for total of 6 we eks, of which patient was already received 1 week treatment. Pending long-term acute care transfer. We will continue current treatment. NF/MODL Voice ID: [id number] Report ID: [id number]
[2022-08-01] MEDS: HYDROCODONE/APAP 10/325 TAB PO PRN (04:18)
[2022-08-01] MEDS: ALBUTEROL 2.5 MG/3 ML NEB SOL NEB PRN (05:35)
[2022-08-01] MEDS: INSULIN -REGULAR HUMAN 50 UNIT/0.5 ML ML SQ SCH ×4 (07:30→21:00)
[2022-08-01] MEDS: SERTRALINE HCL 100 MG TAB PO SCH ×2 (08:44→21:12)
[2022-08-01] MEDS: DIVALPROEX ER 250 MG TAB PO SCH ×2 (08:44→21:11)
[2022-08-01] MEDS: CEFEPIME 2 GM in NA CHLORIDE 0.9% 100 ML IV SCH ×2 (08:44→21:05)
[2022-08-01] MEDS: GLUCERNA SHAKE 237 ML CAN PO SCH ×2 (08:44→21:36)
[2022-08-01] MEDS: GABAPENTIN 100 MG CAP PO SCH ×3 (08:44→21:11)
[2022-08-01] MEDS: DOCUSATE NA 100 MG CAP PO SCH ×2 (08:44→21:11)
[2022-08-01] MEDS: CLOPIDOGREL 75 MG TABLET PO SCH (08:44)
[2022-08-01] MEDS: MEDIHONEY 44 ML TOPICAL TUBE TOP SCH (08:45)
[2022-08-01] MEDS: HYDROMORPHONE HCL 0.5 MG/0.5 ML INJ IV PRN ×3 (09:19→21:03)
[2022-08-01] MEDS: ONDANSETRON 4 MG/2 ML VIAL IV PRN (21:08)
[2022-08-01] MEDS: TRAZODONE 150 MG TAB PO SCH (21:11)
[2022-08-01] MEDS: INSULIN GLARGINE 100 UNIT/ML SQ SCH (21:36)
[2022-08-02] MEDS: VANCOMYCIN 1.5 GM in NA CHLORIDE 0.9% 500 ML IVPB SCH (02:06)
[2022-08-02 06:15] LABS: Absolute Lymphocytes (CBC) 1.4 K/uL (0.7-4.9); Hematocrit 26.3 % (36.0-45.0); Lymphocytes % 19.5 % (15.3-44.8); MCV 75.9 fL (80-100); MPV 7.3 fL (7.6-11.3); RBC Red Blood Cell Count 3.47 M/uL (3.86-4.86)
[2022-08-02 06:31] LABS: Magnesium 2.2 mg/dL (1.8-2.4); Potassium 4.1 mmol/L (3.5-5.1)
[2022-08-02] MEDS: INSULIN -REGULAR HUMAN 50 UNIT/0.5 ML ML SQ SCH ×4 (07:30→20:47)
[2022-08-02] MEDS: DOCUSATE NA 100 MG CAP PO SCH ×2 (09:00→20:45)
[2022-08-02] MEDS: HYDROCODONE/APAP 10/325 TAB PO PRN ×2 (09:26→17:52)
[2022-08-02] MEDS: MEDIHONEY 44 ML TOPICAL TUBE TOP SCH (09:28)
[2022-08-02] MEDS: CEFEPIME 2 GM in NA CHLORIDE 0.9% 100 ML IV SCH ×2 (09:28→20:46)
[2022-08-02] MEDS: GABAPENTIN 100 MG CAP PO SCH ×3 (09:29→20:47)
[2022-08-02] MEDS: DIVALPROEX ER 250 MG TAB PO SCH ×2 (09:29→20:45)
[2022-08-02] MEDS: SERTRALINE HCL 100 MG TAB PO SCH ×2 (09:30→20:47)
[2022-08-02] MEDS: CLOPIDOGREL 75 MG TABLET PO SCH (09:30)
[2022-08-02] MEDS: GLUCERNA SHAKE 237 ML CAN PO SCH ×2 (09:32→20:45)
[2022-08-02] MEDS: HYDROMORPHONE HCL 0.5 MG/0.5 ML INJ IV PRN ×2 (14:08→20:48)
--- NOTE | 2022-08-02 15:21 | PN ---
Subjective: The patient is lying in bed. Denies any headache, nausea, vomiting, chest pain, abdomin al pain, constipation, or diarrhea. No problems with antibiotic. Objective: Vital Signs: Temperature 96.8, pulse 69, respirations 13, blood pressure 168/72. Lungs: Basal crackles. Heart: S1, S2. Regular. Abdomen: Soft, nontender. Bowel sounds present. Extremities: No edema. Laboratory Data: Shows WBC 7.1, hemoglobin 8.6, platelets 216. Chemistry shows BUN of 20, creatinin e 0.9. Micro data shows no growth in blood cultures. Assessment And Plan: Diabetic foot ulcer, osteomyelitis of the right foot, left foot diabetic foot u lcer and diabetic neuropathy, anemia of chronic disease, protein-calorie malnourishment. Continue agrawal pportive care and wound care. Pending long-term acute care transfer. We will continue treatment at this point. The patient is on her second week of antibiotic treatment. NF/MODL Voice ID: [id number] Report ID: [id number]
[2022-08-02] MEDS: TRAZODONE 150 MG TAB PO SCH (20:45)
[2022-08-02] MEDS: ONDANSETRON 4 MG/2 ML VIAL IV PRN (20:49)
[2022-08-02] MEDS: INSULIN GLARGINE 100 UNIT/ML SQ SCH (21:00)
--- NOTE | 2022-08-03 02:36 | P.PN ---
Date of Service: 07/31/22 Subjective PATIENT WITH NO NEW CHANGES. CLINICALLY STABLE. WAITING FOR PLACEMENT TO LTAC. Review of Systems 10-point ROS is otherwise unremarkable Physical Examination - Vital Signs REVIEWED - Physical Exam General: Alert, In no apparent distress, Oriented x3 Respiratory: Clear to auscultation bilaterally, Normal air movement Cardiovascular: Regular rate/rhythm, Normal S1 S2 Gastrointestinal: Normal bowel sounds, No tenderness Neurological: Normal speech, Normal tone, Normal affect Assessment & Plan - Problems (Diagnosis) (1) Osteomyelitis of foot, right, acute Current Visit: Yes Status: Acute (2) Lung cancer Current Visit: No Status: Acute (3) CHF (congestive heart failure) Current Visit: No Status: Chronic Qualifiers: Qualified Code(s): I50.32 - Chronic diastolic (congestive) heart failure (4) COPD (chronic obstructive pulmonary disease) Onset Date: 08/07/16 Current Visit: No Status: Chronic Qualifiers: COPD type: chronic bronchitis Chronic bronchitis type: unspecified Qualified Code(s): J42 - Unspecified chronic bronchitis (5) Chronic pain Onset Date: 10/13/16 Current Visit: No Status: Chronic Qualifiers: Chronic pain type: chronic pain syndrome (6) Depression with anxiety Onset Date: 06/19/18 Current Visit: No Status: Chronic (7) Diabetes mellitus Current Visit: No Status: Chronic Qualifiers: 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 Diabetes mellitus complication status: with neurologic complications Diabetes mellitus complication detail: with unspecified neuropathy Qualified Code(s): E11.40 - Type 2 diabetes mellitus with diabetic neuropathy, unspecified (8) Diastolic CHF, chronic Current Visit: No Status: Chronic (9) Hyperkalemia Current Visit: No Status: Chronic (10) Hyperlipidemia Onset Date: 06/19/18 Current Visit: No Status: Chronic Qualifiers: Hyperlipidemia type: mixed hyperlipidemia Qualified Code(s): E78.2 - Mixed hyperlipidemia (11) Obesity Current Visit: No Status: Chronic Qualifiers: Obesity type: due to excess calories Obesity classification: adult class 1 (BMI 30 - 34.9) Serious obesity comorbidity presence: with serious comorbidity Body mass index: BMI 31.0-31.9 Qualified Code(s): E66.09 - Other obesity due to excess calories; Z68.31 - Body mass index (BMI) 31.0-31.9, adult; Z68.31 - Body mass index (BMI) 31.0-31.9, adult (12) PVD (peripheral vascular disease) Onset Date: 06/19/18 Current Visit: No Status: Chronic (13) Weakness generalized Onset Date: 01/03/16 Current Visit: No Status: Resolved - Plan CONTINUE WITH PLAN OF CARE MENTIONED BELOW: 1. Continue with IV antibiotic 2. Continue with local wound care 3. Monitor CBC 4. Strict blood sugar monitoring 5. Pain control 6. Continue with medication for COPD 7. Placement 8. GI and DVT prophylaxis - Advance Directives Does patient have a Living Will: No Does patient have a Durable POA for Healthcare: No - Code Status/Comfort Care Code Status: Full Code
--- NOTE | 2022-08-03 02:37 | P.PN ---
Date of Service: 08/01/22 Subjective Patient continued to improve with no new changes. Review of Systems 10-point ROS is otherwise unremarkable Physical Examination - Vital Signs REVIEWED - Physical Exam General: Alert, In no apparent distress, Oriented x3 Respiratory: Clear to auscultation bilaterally, Normal air movement Cardiovascular: Regular rate/rhythm, Normal S1 S2 Gastrointestinal: Normal bowel sounds, No tenderness Neurological: Normal speech, Normal tone, Normal affect Assessment & Plan - Problems (Diagnosis) (1) Osteomyelitis of foot, right, acute Current Visit: Yes Status: Acute (2) Lung cancer Current Visit: No Status: Acute (3) CHF (congestive heart failure) Current Visit: No Status: Chronic Qualifiers: Qualified Code(s): I50.32 - Chronic diastolic (congestive) heart failure (4) COPD (chronic obstructive pulmonary disease) Onset Date: 08/07/16 Current Visit: No Status: Chronic Qualifiers: COPD type: chronic bronchitis Chronic bronchitis type: unspecified Qualified Code(s): J42 - Unspecified chronic bronchitis (5) Chronic pain Onset Date: 10/13/16 Current Visit: No Status: Chronic Qualifiers: Chronic pain type: chronic pain syndrome (6) Depression with anxiety Onset Date: 06/19/18 Current Visit: No Status: Chronic (7) Diabetes mellitus Current Visit: No Status: Chronic Qualifiers: Diabetes mellitus type: type 2 Diabetes mellitus correction insulin use: without long distance operator use Diabetes mellitus complication status: with neurologic complications Diabetes mellitus complication detail: with unspecified neuropathy Qualified Code(s): E11.40 - Type 2 diabetes mellitus with diabetic neuropathy, unspecified (8) Diastolic CHF, chronic Current Visit: No Status: Chronic (9) Hyperkalemia Current Visit: No Status: Chronic (10) Hyperlipidemia Onset Date: 06/19/18 Current Visit: No Status: Chronic Qualifiers: Hyperlipidemia type: mixed hyperlipidemia Qualified Code(s): E78.2 - Mixed hyperlipidemia (11) Obesity Current Visit: No Status: Chronic Qualifiers: Obesity type: due to excess calories Obesity classification: adult class 1 (BMI 30 - 34.9) Serious obesity comorbidity presence: with serious comorbidity Body mass index: BMI 31.0-31.9 Qualified Code(s): E66.09 - Other obesity due to excess calories; Z68.31 - Body mass index (BMI) 31.0-31.9, adult; Z68.31 - Body mass index (BMI) 31.0-31.9, adult (12) PVD (peripheral vascular disease) Onset Date: 06/19/18 Current Visit: No Status: Chronic (13) Weakness generalized Onset Date: 01/03/16 Current Visit: No Status: Resolved - Plan Continue with plan of care as mentioned below: 1. Continue with IV antibiotic 2. Continue with local wound care 3. Monitor CBC 4. Strict blood sugar monitoring 5. Pain control 6. Continue with medication for COPD 7. Placement 8. GI and DVT prophylaxis - Advance Directives Does patient have a Living Will: No Does patient have a Durable POA for Healthcare: No - Code Status/Comfort Care Code Status: Full Code
--- NOTE | 2022-08-03 02:38 | P.PN ---
Date of Service: 08/02/22 Subjective Awaiting for placement at LTAC facility. Clinical symptoms are stable. Review of Systems 10-point ROS is otherwise unremarkable Physical Examination - Vital Signs REVIEWED - Physical Exam General: Alert, In no apparent distress, Oriented x3 Respiratory: Clear to auscultation bilaterally, Normal air movement Cardiovascular: Regular rate/rhythm, Normal S1 S2 Gastrointestinal: Normal bowel sounds, No tenderness Neurological: Normal speech, Normal tone, Normal affect Assessment & Plan - Problems (Diagnosis) (1) Osteomyelitis of foot, right, acute Current Visit: Yes Status: Acute (2) Lung cancer Current Visit: No Status: Acute (3) CHF (congestive heart failure) Current Visit: No Status: Chronic Qualifiers: Qualified Code(s): I50.32 - Chronic diastolic (congestive) heart failure (4) COPD (chronic obstructive pulmonary disease) Onset Date: 08/07/16 Current Visit: No Status: Chronic Qualifiers: COPD type: chronic bronchitis Chronic bronchitis type: unspecified Qualified Code(s): J42 - Unspecified chronic bronchitis (5) Chronic pain Onset Date: 10/13/16 Current Visit: No Status: Chronic Qualifiers: Chronic pain type: chronic pain syndrome (6) Depression with anxiety Onset Date: 06/19/18 Current Visit: No Status: Chronic (7) Diabetes mellitus Current Visit: No Status: Chronic Qualifiers: Diabetes mellitus type: type 2 Diabetes mellitus assisted insulin use: without intermodal customer service use Diabetes mellitus complication status: with neurologic complications Diabetes mellitus complication detail: with unspecified neuropathy Qualified Code(s): E11.40 - Type 2 diabetes mellitus with diabetic neuropathy, unspecified (8) Diastolic CHF, chronic Current Visit: No Status: Chronic (9) Hyperkalemia Current Visit: No Status: Chronic (10) Hyperlipidemia Onset Date: 06/19/18 Current Visit: No Status: Chronic Qualifiers: Hyperlipidemia type: mixed hyperlipidemia Qualified Code(s): E78.2 - Mixed hyperlipidemia (11) Obesity Current Visit: No Status: Chronic Qualifiers: Obesity type: due to excess calories Obesity classification: adult class 1 (BMI 30 - 34.9) Serious obesity comorbidity presence: with serious comorbidity Body mass index: BMI 31.0-31.9 Qualified Code(s): E66.09 - Other obesity due to excess calories; Z68.31 - Body mass index (BMI) 31.0-31.9, adult; Z68.31 - Body mass index (BMI) 31.0-31.9, adult (12) PVD (peripheral vascular disease) Onset Date: 06/19/18 Current Visit: No Status: Chronic (13) Weakness generalized Onset Date: 01/03/16 Current Visit: No Status: Resolved - Plan Continue with plan of care as mentioned below: 1. Continue with IV antibiotic 2. Continue with local wound care 3. Monitor CBC 4. Strict blood sugar monitoring 5. Pain control 6. Continue with medication for COPD 7. LTAC Placement 8. GI and DVT prophylaxis
--- NOTE | 2022-08-03 02:38 | P.PN ---
Date of Service: 08/03/22 Subjective No complaints. Awaiting placement. Review of Systems 10-point ROS is otherwise unremarkable Physical Examination - Vital Signs REVIEWED - Physical Exam General: Alert, In no apparent distress, Oriented x3 Respiratory: Clear to auscultation bilaterally, Normal air movement Cardiovascular: Regular rate/rhythm, Normal S1 S2 Assessment & Plan - Problems (Diagnosis) (1) Osteomyelitis of foot, right, acute Current Visit: Yes Status: Acute (2) Lung cancer Current Visit: No Status: Acute (3) CHF (congestive heart failure) Current Visit: No Status: Chronic Qualifiers: Qualified Code(s): I50.32 - Chronic diastolic (congestive) heart failure (4) COPD (chronic obstructive pulmonary disease) Onset Date: 08/07/16 Current Visit: No Status: Chronic Qualifiers: COPD type: chronic bronchitis Chronic bronchitis type: unspecified Qualified Code(s): J42 - Unspecified chronic bronchitis (5) Chronic pain Onset Date: 10/13/16 Current Visit: No Status: Chronic Qualifiers: Chronic pain type: chronic pain syndrome (6) Depression with anxiety Onset Date: 06/19/18 Current Visit: No Status: Chronic (7) Diabetes mellitus Current Visit: No Status: Chronic Qualifiers: Diabetes mellitus type: type 2 Diabetes mellitus assisted insulin use: without assisted use Diabetes mellitus complication status: with neurologic complications Diabetes mellitus complication detail: with unspecified neuropathy Qualified Code(s): E11.40 - Type 2 diabetes mellitus with diabetic neuropathy, unspecified (8) Diastolic CHF, chronic Current Visit: No Status: Chronic (9) Hyperkalemia Current Visit: No Status: Chronic (10) Hyperlipidemia Onset Date: 06/19/18 Current Visit: No Status: Chronic Qualifiers: Hyperlipidemia type: mixed hyperlipidemia Qualified Code(s): E78.2 - Mixed hyperlipidemia (11) Obesity Current Visit: No Status: Chronic Qualifiers: Obesity type: due to excess calories Obesity classification: adult class 1 (BMI 30 - 34.9) Serious obesity comorbidity presence: with serious comorbidity Body mass index: BMI 31.0-31.9 Qualified Code(s): E66.09 - Other obesity due to excess calories; Z68.31 - Body mass index (BMI) 31.0-31.9, adult; Z68.31 - Body mass index (BMI) 31.0-31.9, adult (12) PVD (peripheral vascular disease) Onset Date: 06/19/18 Current Visit: No Status: Chronic (13) Weakness generalized Onset Date: 01/03/16 Current Visit: No Status: Resolved - Plan Continue with plan of care as mentioned below: 1. Continue with IV antibiotic 2. Continue with local wound care 3. Monitor CBC 4. Strict blood sugar monitoring 5. Pain control 6. Continue with medication for COPD 7. LTAC Placement 8. GI and DVT prophylaxis
[2022-08-03] MEDS: VANCOMYCIN 1.5 GM in NA CHLORIDE 0.9% 500 ML IVPB SCH (02:42)
[2022-08-03] MEDS: HYDROMORPHONE HCL 0.5 MG/0.5 ML INJ IV PRN ×4 (04:52→22:29)
[2022-08-03] MEDS: INSULIN -REGULAR HUMAN 50 UNIT/0.5 ML ML SQ SCH ×4 (07:30→20:12)
[2022-08-03] MEDS ORDERED: CYANOCOBALAMIN 1000MCG/ML INJ IM ONE (08:00)
[2022-08-03] MEDS: MEDIHONEY 44 ML TOPICAL TUBE TOP SCH (09:00)
[2022-08-03] MEDS: SOD FERRIC GLUC COMPLX/SUCROSE 125 MG in NA CHLORIDE 0.9% 100 ML IV SCH (09:00)
[2022-08-03] MEDS: DOCUSATE NA 100 MG CAP PO SCH ×2 (09:00→20:13)
[2022-08-03] MEDS: DIVALPROEX ER 250 MG TAB PO SCH ×2 (09:51→20:15)
[2022-08-03] MEDS: CYANOCOBALAMIN 1,000 MCG TAB SL SCH (09:51)
[2022-08-03] MEDS: CLOPIDOGREL 75 MG TABLET PO SCH (09:51)
[2022-08-03] MEDS: SERTRALINE HCL 100 MG TAB PO SCH ×2 (09:51→20:14)
[2022-08-03] MEDS: GABAPENTIN 100 MG CAP PO SCH ×3 (09:51→20:14)
[2022-08-03] MEDS: CEFEPIME 2 GM in NA CHLORIDE 0.9% 100 ML IV SCH ×2 (09:52→20:14)
[2022-08-03] MEDS: GLUCERNA SHAKE 237 ML CAN PO SCH ×2 (09:53→20:13)
[2022-08-03] MEDS: HYDROCODONE/APAP 10/325 TAB PO PRN (11:48)
[2022-08-03] MEDS: ONDANSETRON 4 MG/2 ML VIAL IV PRN ×2 (12:11→20:15)
[2022-08-03 12:16] LABS: Absolute Lymphocytes (CBC) 1.1 K/uL (0.7-4.9); Hematocrit 26.7 % (36.0-45.0); Lymphocytes % 12.8 % (15.3-44.8); MPV 7.5 fL (7.6-11.3); RBC Red Blood Cell Count 3.51 M/uL (3.86-4.86)
[2022-08-03] MEDS: ALBUTEROL 2.5 MG/3 ML NEB SOL NEB PRN (16:54)
[2022-08-03] MEDS: TRAZODONE 150 MG TAB PO SCH (20:13)
[2022-08-03] MEDS: INSULIN GLARGINE 100 UNIT/ML SQ SCH (20:14)
[2022-08-04 06:39] LABS: Magnesium 2.3 mg/dL (1.8-2.4)
[2022-08-04] MEDS: INSULIN -REGULAR HUMAN 50 UNIT/0.5 ML ML SQ SCH ×4 (07:30→21:00)
[2022-08-04] MEDS: SOD FERRIC GLUC COMPLX/SUCROSE 125 MG in NA CHLORIDE 0.9% 100 ML IV SCH (09:00)
[2022-08-04] MEDS ORDERED: VANCOMYCIN 1.25 GM in NA CHLORIDE 0.9% 250 ML IVPB SCH (09:00)
[2022-08-04] MEDS: DOCUSATE NA 100 MG CAP PO SCH ×2 (09:00→22:25)
[2022-08-04] MEDS: VANCOMYCIN 1.25 GM in NA CHLORIDE 0.9% 250 ML IVPB SCH (09:24)
[2022-08-04] MEDS: SERTRALINE HCL 100 MG TAB PO SCH ×2 (09:25→22:25)
[2022-08-04] MEDS: CLOPIDOGREL 75 MG TABLET PO SCH (09:25)
[2022-08-04] MEDS: CYANOCOBALAMIN 1,000 MCG TAB SL SCH (09:25)
[2022-08-04] MEDS: DIVALPROEX ER 250 MG TAB PO SCH ×2 (09:25→22:26)
[2022-08-04] MEDS: HYDROMORPHONE HCL 0.5 MG/0.5 ML INJ IV PRN ×2 (09:26→14:30)
[2022-08-04] MEDS: GABAPENTIN 100 MG CAP PO SCH ×3 (09:26→22:25)
[2022-08-04] MEDS: MEDIHONEY 44 ML TOPICAL TUBE TOP SCH (09:26)
[2022-08-04] MEDS: GLUCERNA SHAKE 237 ML CAN PO SCH ×2 (09:27→22:26)
[2022-08-04] MEDS: CEFEPIME 2 GM in NA CHLORIDE 0.9% 100 ML IV SCH ×2 (11:02→22:26)
--- NOTE | 2022-08-04 17:39 | PN ---
Subjective: The patient lying in bed. No new acute event. Denies any headache, nausea, vomiting, c hest pain, abdominal pain, constipation, or diarrhea. Currently on nasal cannula. Objective: Lungs: Basal crackles. Heart: S1, S2. Regular. Abdomen: Soft, nontender. Bowel sounds present. Extremity: No edema. Wounds noted. Vital Signs: Blood pressure 162/81, pulse 76, respirations 19, temperature is 97.5. Laboratory Data: Shows WBC 8.6, hemoglobin 8.6, platelets are 204. Chemistry shows BUN of 27, creat inine 1. Assessment And Plan: Diabetic foot ulcer, right foot osteomyelitis of fourth toe, diabetic neuropath y, anemia of chronic disease, moderate protein-calorie malnourishment. Pending long-term acute care transfer. We will continue current treatment for a total of 6 weeks. NF/MODL Voice ID: [id number] Report ID: [id number]
[2022-08-04] MEDS: HYDROCODONE/APAP 10/325 TAB PO PRN (17:53)
--- NOTE | 2022-08-04 18:05 | P.PN ---
Subjective Date of Service: 08/04/22 Chief Complaint: Osteomyelitis No acute events overnight. She denies any pain this morning. She is awaiting placement into LTAC. She reports no particular concerns this morning on rounds. Review of Systems 10-point ROS is otherwise unremarkable Musculoskeletal: Foot Pain (right, intermittent - mild) Physical Examination - Vital Signs Temperature: 97.7 F Blood Pressure: 160/70 Pulse: 74 Respirations: 19 Pulse Ox (%): 96 - Studies Medications List Reviewed: Yes Assessment And Plan - Plan - Physical Exam General: Alert, Oriented x3, No distress HEENT: Atraumatic, PERRLA, Mucous membr. moist/pink, EOMI, Sclerae nonicteric Neck: Supple, JVD not distended Respiratory: Diminished, otherwise clear to auscultation bilaterally Cardiovascular: Regular rate/rhythm, Normal S1 S2, No gallops, No rubs, No murmurs, Edema (trace-1+) Gastrointestinal: Normal bowel sounds, Soft and benign, Non-distended, No tenderness, No rebound, No guarding Musculoskeletal: No clubbing Integumentary: Diabetic ulcer covered in clean dressing Neurological: Normal speech, Cranial nerves 3-12 intact, Normal affect # Acute Right Foot Osteomyelitis - Podiatry consulted - recommendations appreciated - Dr. Peterson recommends IV antibiotics over amputation given multiple comorbidities - Infectious Diseases consulted and spoke with Dr. Butcher - recommendations appreciated - Recommended 6 weeks of vancomycin + cefepime (end date: 09/02/2022) - Dr. Butcher recommended LTAC placement, and she is agreeable - CM management consulted - appreciate assistance - Right foot x-ray = "no fracture or dislocation is seen. Cortical regularity involves the second terminal tuft. Equivocal cortical regularity involves the fourth terminal tuft of the distal phalanx. These are nonspecific but could indicate osteomyelitis. Post surgical changes involve the first metatarsal." # Possible Mild Acute on Chronic Decompensated Diastolic Congestive Heart Failure (resolved) # Chronic Obstructive Pulmonary Disease # History of Lung Cancer - May have developed pulmonary edema due to continuous fluids, now resolved - Monitor respiratory status - Encouraged incentive spirometry - Supplemental oxygen to maintain SpO2 > 92 % # Generalized Weakness with Deconditioning - PT consulted # Type II Diabetes Mellitus - Continue home basal insulin - Correction scale insulin ordered # Peripheral Vascular Disease # Hypertension # Dyslipidemia - Continue clopidogrel - Consider adding statin once strength improves (hold for now to prevent myalgias) # Depression with Anxiety - Continue home divalproex, sertraline No new changes today. Cleared for discharge once accepted to LTAC. Malachi Stephens M.D.
[2022-08-04] MEDS: ALBUTEROL 2.5 MG/3 ML NEB SOL NEB PRN (20:50)
[2022-08-04] MEDS: INSULIN GLARGINE 100 UNIT/ML SQ SCH (22:26)
[2022-08-04] MEDS: TRAZODONE 150 MG TAB PO SCH (22:26)
[2022-08-05] MEDS: ALBUTEROL 2.5 MG/3 ML NEB SOL NEB PRN ×2 (06:05→20:20)
[2022-08-05] MEDS: HYDROCODONE/APAP 10/325 TAB PO PRN ×3 (06:32→19:40)
[2022-08-05] MEDS: INSULIN -REGULAR HUMAN 50 UNIT/0.5 ML ML SQ SCH ×4 (07:30→21:00)
[2022-08-05] MEDS: SERTRALINE HCL 100 MG TAB PO SCH ×2 (08:16→21:21)
[2022-08-05] MEDS: DIVALPROEX ER 250 MG TAB PO SCH ×2 (08:16→21:21)
[2022-08-05] MEDS: DOCUSATE NA 100 MG CAP PO SCH ×2 (08:16→21:22)
[2022-08-05] MEDS: CYANOCOBALAMIN 1,000 MCG TAB SL SCH (08:16)
[2022-08-05] MEDS: GABAPENTIN 100 MG CAP PO SCH ×3 (08:16→21:21)
[2022-08-05] MEDS: CLOPIDOGREL 75 MG TABLET PO SCH (08:16)
[2022-08-05] MEDS: VANCOMYCIN 1.25 GM in NA CHLORIDE 0.9% 250 ML IVPB SCH (08:17)
[2022-08-05] MEDS: MEDIHONEY 44 ML TOPICAL TUBE TOP SCH (08:17)
[2022-08-05] MEDS: CEFEPIME 2 GM in NA CHLORIDE 0.9% 100 ML IV SCH ×2 (08:17→21:20)
[2022-08-05] MEDS: GLUCERNA SHAKE 237 ML CAN PO SCH ×2 (08:18→21:22)
[2022-08-05] MEDS: SOD FERRIC GLUC COMPLX/SUCROSE 125 MG in NA CHLORIDE 0.9% 100 ML IV SCH (11:02)
--- NOTE | 2022-08-05 12:23 | P.PN ---
Subjective Date of Service: 08/05/22 Chief Complaint: Osteomyelitis No acute events overnight. She states that she is doing well this morning. She denies any concerns. Review of Systems 10-point ROS is otherwise unremarkable Physical Examination - Vital Signs Temperature: 97.8 F Blood Pressure: 141/64 Pulse: 75 Respirations: 18 Pulse Ox (%): 94 - Studies Medications List Reviewed: Yes Assessment And Plan - Plan - Physical Exam General: Alert, Oriented x3, No distress HEENT: Atraumatic, PERRLA, Mucous membr. moist/pink, EOMI, Sclerae nonicteric Neck: Supple, JVD not distended Respiratory: Diminished, otherwise clear to auscultation bilaterally Cardiovascular: Regular rate/rhythm, Normal S1 S2, No gallops, No rubs, No murmurs, Edema (trace-1+) Gastrointestinal: Normal bowel sounds, Soft and benign, Non-distended, No tenderness, No rebound, No guarding Musculoskeletal: No clubbing Integumentary: Diabetic ulcer covered in clean dressing Neurological: Normal speech, Cranial nerves 3-12 intact, Normal affect # Acute Right Foot Osteomyelitis - Podiatry consulted - recommendations appreciated - Dr. Peterson recommends IV antibiotics over amputation given multiple comorbidities - Infectious Diseases consulted and spoke with Dr. Butcher - recommendations appreciated - Recommended 6 weeks of vancomycin + cefepime (end date: 09/02/2022) - Dr. Butcher recommended LTAC placement, and she is agreeable - CM management consulted - appreciate assistance - Right foot x-ray = "no fracture or dislocation is seen. Cortical regularity involves the second terminal tuft. Equivocal cortical regularity involves the fourth terminal tuft of the distal phalanx. These are nonspecific but could indicate osteomyelitis. Post surgical changes involve the first metatarsal." # Possible Mild Acute on Chronic Decompensated Diastolic Congestive Heart Failure (resolved) # Chronic Obstructive Pulmonary Disease # History of Lung Cancer - May have developed pulmonary edema due to continuous fluids, now resolved - Monitor respiratory status - Encouraged incentive spirometry - Supplemental oxygen to maintain SpO2 > 92 % # Generalized Weakness with Deconditioning - PT consulted # Type II Diabetes Mellitus - Continue home basal insulin - Correction scale insulin ordered # Peripheral Vascular Disease # Hypertension # Dyslipidemia - Continue clopidogrel - Consider adding statin once strength improves (hold for now to prevent myalgias) # Depression with Anxiety - Continue home divalproex, sertraline No new changes today. Cleared for discharge once accepted to LTAC. Unlikely to occur over the weekend. Malachi Stephens M.D.
[2022-08-05] MEDS: INSULIN GLARGINE 100 UNIT/ML SQ SCH (21:21)
[2022-08-05] MEDS: TRAZODONE 150 MG TAB PO SCH (21:25)
[2022-08-06] MEDS: HYDROCODONE/APAP 10/325 TAB PO PRN ×3 (05:28→17:40)
[2022-08-06] MEDS: INSULIN -REGULAR HUMAN 50 UNIT/0.5 ML ML SQ SCH ×4 (07:30→19:56)
[2022-08-06] MEDS: CEFEPIME 2 GM in NA CHLORIDE 0.9% 100 ML IV SCH ×2 (08:45→22:47)
[2022-08-06] MEDS: SERTRALINE HCL 100 MG TAB PO SCH ×2 (08:46→22:48)
[2022-08-06] MEDS: GABAPENTIN 100 MG CAP PO SCH ×3 (08:46→22:48)
[2022-08-06] MEDS: MEDIHONEY 44 ML TOPICAL TUBE TOP SCH (08:46)
[2022-08-06] MEDS: DOCUSATE NA 100 MG CAP PO SCH ×2 (08:46→22:48)
[2022-08-06] MEDS: DIVALPROEX ER 250 MG TAB PO SCH ×2 (08:46→22:48)
[2022-08-06] MEDS: CYANOCOBALAMIN 1,000 MCG TAB SL SCH (08:46)
[2022-08-06] MEDS: CLOPIDOGREL 75 MG TABLET PO SCH (08:46)
[2022-08-06] MEDS: GLUCERNA SHAKE 237 ML CAN PO SCH ×2 (08:47→22:49)
[2022-08-06] MEDS: VANCOMYCIN 1.25 GM in NA CHLORIDE 0.9% 250 ML IVPB SCH (10:01)
[2022-08-06] MEDS: SOD FERRIC GLUC COMPLX/SUCROSE 125 MG in NA CHLORIDE 0.9% 100 ML IV SCH (12:12)
--- NOTE | 2022-08-06 13:54 | P.PN ---
Subjective Date of Service: 08/06/22 Chief Complaint: Osteomyelitis No acute events overnight. She states that she is doing well this morning. She was sitting up eating breakfast this morning on rounds. She denies any particular concerns. Review of Systems 10-point ROS is otherwise unremarkable Physical Examination - Vital Signs Temperature: 97.3 F Blood Pressure: 173/68 Pulse: 76 Respirations: 16 Pulse Ox (%): 95 - Studies Medications List Reviewed: Yes Assessment And Plan - Plan - Physical Exam General: Alert, Oriented x3, No distress HEENT: Atraumatic, PERRLA, Mucous membr. moist/pink, EOMI, Sclerae nonicteric Neck: Supple, JVD not distended Respiratory: Diminished, otherwise clear to auscultation bilaterally Cardiovascular: Regular rate/rhythm, Normal S1 S2, No gallops, No rubs, No murmurs, Edema (trace-1+) Gastrointestinal: Normal bowel sounds, Soft and benign, Non-distended, No te nderness, No rebound, No guarding Musculoskeletal: No clubbing Integumentary: Diabetic ulcer covered in clean dressing Neurological: Normal speech, Cranial nerves 3-12 intact, Normal affect # Acute Right Foot Osteomyelitis - Podiatry consulted - recommendations appreciated - Dr. Peterson recommends IV antibiotics over amputation given multiple comorbidities - Infectious Diseases consulted and spoke with Dr. Butcher - recommendations appreciated - Recommended 6 weeks of vancomycin + cefepime (end date: 09/02/2022) - Dr. Butcher recommended LTAC placement, and she is agreeable - CM management consulted - appreciate assistance - Right foot x-ray = "no fracture or dislocation is seen. Cortical regularity involves the second terminal tuft. Equivocal cortical regularity involves the fourth terminal tuft of the distal phalanx. These are nonspecific but could indicate osteomyelitis. Post surgical changes involve the first metatarsal." # Possible Mild Acute on Chronic Decompensated Diastolic Congestive Heart Failure (resolved) # Chronic Obstructive Pulmonary Disease # History of Lung Cancer - May have developed pulmonary edema due to continuous fluids, now resolved - Monitor respiratory status - Encouraged incentive spirometry - Supplemental oxygen to maintain SpO2 > 92 % # Generalized Weakness with Deconditioning - PT consulted # Type II Diabetes Mellitus - Continue home basal insulin - Correction scale insulin ordered # Peripheral Vascular Disease # Hypertension # Dyslipidemia - Continue clopidogrel - Consider adding statin once strength improves (hold for now to prevent myalgias) # Depression with Anxiety - Continue home divalproex, sertraline No new changes today. Cleared for discharge once accepted to LTAC. Unlikely to occur over the weekend. Malachi Stephens M.D.
[2022-08-06] MEDS: ALBUTEROL 2.5 MG/3 ML NEB SOL NEB PRN (20:06)
[2022-08-06] MEDS: TRAZODONE 150 MG TAB PO SCH (22:48)
[2022-08-06] MEDS: INSULIN GLARGINE 100 UNIT/ML SQ SCH (22:49)
[2022-08-07] MEDS: HYDROCODONE/APAP 10/325 TAB PO PRN ×2 (00:43→21:34)
[2022-08-07] MEDS: MEDIHONEY 44 ML TOPICAL TUBE TOP SCH (09:00)
[2022-08-07] MEDS: GLUCERNA SHAKE 237 ML CAN PO SCH ×2 (09:00→21:00)
[2022-08-07] MEDS: SERTRALINE HCL 100 MG TAB PO SCH ×2 (09:00→21:34)
[2022-08-07] MEDS: VANCOMYCIN 1.25 GM in NA CHLORIDE 0.9% 250 ML IVPB SCH (09:15)
[2022-08-07] MEDS: CLOPIDOGREL 75 MG TABLET PO SCH (09:16)
[2022-08-07] MEDS: GABAPENTIN 100 MG CAP PO SCH ×3 (09:16→21:34)
[2022-08-07] MEDS: CYANOCOBALAMIN 1,000 MCG TAB SL SCH (09:16)
[2022-08-07] MEDS: DIVALPROEX ER 250 MG TAB PO SCH ×2 (09:16→21:34)
[2022-08-07] MEDS: DOCUSATE NA 100 MG CAP PO SCH ×2 (09:16→21:00)
[2022-08-07 09:58] VITALS: O2SAT 95
[2022-08-07] MEDS: INSULIN -REGULAR HUMAN 50 UNIT/0.5 ML ML SQ SCH ×2 (11:30→21:00)
[2022-08-07] MEDS: SOD FERRIC GLUC COMPLX/SUCROSE 125 MG in NA CHLORIDE 0.9% 100 ML IV SCH (12:00)
[2022-08-07] MEDS: CEFEPIME 2 GM in NA CHLORIDE 0.9% 100 ML IV SCH ×2 (12:16→21:00)
--- NOTE | 2022-08-07 13:41 | P.PN ---
Subjective Date of Service: 08/07/22 Chief Complaint: Osteomyelitis No acute events overnight. She states that she is doing well this morning. She denies any concerns this morning. She is waiting placement into LTAC. Review of Systems 10-point ROS is otherwise unremarkable Physical Examination - Vital Signs Temperature: 97.9 F Blood Pressure: 163/70 Pulse: 74 Respirations: 18 Pulse Ox (%): 95 - Studies Medications List Reviewed: Yes Assessment And Plan - Plan - Physical Exam General: Alert, Oriented x3, No distress HEENT: Atraumatic, PERRLA, Mucous membr. moist/pink, EOMI, Sclerae nonicteric Neck: Supple, JVD not distended Respiratory: Diminished, otherwise clear to auscultation bilaterally Cardiovascular: Regular rate/rhythm, Normal S1 S2, No gallops, No rubs, No murmurs, Edema (trace-1+) Gastrointestinal: Normal bowel sounds, Soft and benign, Non-distended, No tenderness, No rebound, No guarding Musculoskeletal: No clubbing Integumentary: Diabetic ulcer covered in clean dressing Neurological: Normal speech, Cranial nerves 3-12 intact, Normal affect # Acute Right Foot Osteomyelitis - Podiatry consulted - recommendations appreciated - Dr. Peterson recommends IV antibiotics over amputation given multiple comorbidities - Infectious Diseases consulted and spoke with Dr. Butcher - recommendations appreciated - Recommended 6 weeks of vancomycin + cefepime (end date: 09/02/2022) - Dr. Butcher recommended LTAC placement, and she is agreeable - CM management consulted - appreciate assistance - Right foot x-ray = "no fracture or dislocation is seen. Cortical regularity involves the second terminal tuft. Equivocal cortical regularity involves the fourth terminal tuft of the distal phalanx. These are nonspecific but could indicate osteomyelitis. Post surgical changes involve the first metatarsal." # Possible Mild Acute on Chronic Decompensated Diastolic Congestive Heart Failure (resolved) # Chronic Obstructive Pulmonary Disease # History of Lung Cancer - May have developed pulmonary edema due to continuous fluids, now resolved - Monitor respiratory status - Encouraged incentive spirometry - Supplemental oxygen to maintain SpO2 > 92 % # Generalized Weakness with Deconditioning - PT consulted # Type II Diabetes Mellitus - Continue home basal insulin - Correction scale insulin ordered # Peripheral Vascular Disease # Hypertension # Dyslipidemia - Continue clopidogrel - Consider adding statin once strength improves (hold for now to prevent myalgias) # Depression with Anxiety - Continue home divalproex, sertraline No new changes today. Cleared for discharge once accepted to LTAC. Malachi Stephens M.D.
--- NOTE | 2022-08-07 15:21 | P.DS ---
Admission Date: 07/21/22 Discharge Date: 08/07/22 Dis[facility] Discharge Condition: GOOD Reason for Admission: Osteomyelitis Consultations: 1. Infectious Diseases 2. Podiatry Hospital Course: DIAGNOSES: # Acute Right Foot Osteomyelitis # Possible Mild Acute on Chronic Decompensated Diastolic Congestive Heart Failure (resolved) # Chronic Obstructive Pulmonary Disease # History of Lung Cancer # Generalized Weakness with Deconditioning # Type II Diabetes Mellitus # Peripheral Vascular Disease # Hypertension # Dyslipidemia # Depression with Anxiety HOSPITAL COURSE: Ms. Nakia Turcios is a pleasant 66-year-old female with a past medical history significant for type 2 diabetes mellitus, chronic diastolic congestive heart failure, peripheral vascular disease, hypertension, dyslipidemia, depression, and anxiety who was admitted to the [facility] on 07/21/2022 for right foot osteomyelitis. She was admitted to the Medicine service. Upon further evaluation, her right foot x-ray revealed, "no fracture or dislocation is seen. Cortical regularity involves the second terminal tuft. Equivocal cortical regularity involves the fourth terminal tuft of the distal phalanx. These are nonspecific but could indicate osteomyelitis. Post surgical changes involve the first metatarsal." Doppler ultrasound revealed, "mild to moderate arterial disease involving the distal aspect of the right lower extremity. Mild disease arterial involving the distal aspect of the left lower extremity." Podiatry was consulted and she was evaluated by Dr. Peterson. Options were discussed regarding amputation versus IV antibiotics. After thorough discussion, she decided that she would prefer a 6- week course of IV antibiotics. Infectious Diseases was consulted and she was evaluated by Dr. Butcher. Dr. Butcher recommended that she be placed in an LTAC facility for the duration of her antibiotic course. With the assistance of case management, she was accepted to [facility]. On 08/07/2022, she was seen on morning rounds and deemed medically stable for discharge. She was given the opportunity to ask questions and reported no fu rther questions. Furthermore, all questions were answered to the best of my ability. A copy of this discharge summary will be sent to the above providers to facilitate continuity of care. Today, I personally spent 20 minutes on her case, of which greater than 50% of the time was spent in patient education, counseling, and coordination of care as described above. - Physical Exam General: Alert, Oriented x3, No distress HEENT: Atraumatic, PERRLA, Mucous membr. moist/pink, EOMI, Sclerae nonicteric Neck: Supple, JVD not distended Respiratory: Clear to auscultation bilaterally without wheezes, rhonchi, or rales Cardiovascular: Regular rate/rhythm, Normal S1 S2, No gallops, No rubs, No murmurs, Edema (trace) Gastrointestinal: Normal bowel sounds, Soft and benign, Non-distended, No tenderness, No rebound, No guarding Musculoskeletal: No clubbing Integumentary: Diabetic ulcer covered in clean dressing Neurological: Normal speech, Cranial nerves 3-12 intact, Normal affect Vital Signs/Physical Exam: Temp Pulse Resp BP Pulse Ox 97.9 F 74 18 163/70 H 95 08/07/22 13:41 08/07/22 13:41 08/07/22 13:41 08/07/22 13:41 08/07/22 13:41 Laboratory Data at Discharge: WBC 8.60 K/uL (4.3-10.9) 08/03/22 12:00 Hgb 8.6 g/dL (12.0-15.0) L 08/03/22 12:00 Hct 26.7 % (36.0-45.0) L 08/03/22 12:00 Plt Count 204 K/uL (152-406) 08/03/22 12:00 PT 13.3 SECONDS (9.5-12.5) H 07/23/22 05:42 INR 1.21 07/23/22 05:42 APTT 26.7 SECONDS (24.3-36.9) 07/21/22 14:40 Sodium 139 mmol/L (136-145) 08/04/22 05:52 Potassium 5.0 mmol/L (3.5-5.1) 08/04/22 05:52 BUN 27 mg/dL (7-18) H 08/04/22 05:52 Creatinine 1.00 mg/dL (0.55-1.3) 08/04/22 05:52 Glucose 94 mg/dL (74-106) 08/04/22 05:52 Phosphorus 2.6 mg/dL (2.5-4.9) 07/24/22 04:42 Magnesium 2.3 mg/dL (1.8-2.4) 08/04/22 05:52 Total Bilirubin 0.5 mg/dL (0.2-1.0) 07/23/22 05:42 AST 15 U/L (15-37) 07/23/22 05:42 ALT 19 U/L (12-78) 07/23/22 05:42 Alkaline Phosphatase 64 U/L (45-117) 07/23/22 05:42 Home Medications: Clopidogrel Bisulfate [Plavix*] 75 mg PO DAILY 08/03/19 Divalproex ER [Depakote *ER] 250 mg PO BID 08/03/19 Furosemide [Lasix] 40 mg PO DAILY 08/03/19 Insulin Glargine Human [Lantus*] 27 units SQ BEDTIME 08/03/19 Montelukast Sodium 10 mg PO BEDTIME 08/03/19 Pravastatin Sodium 20 mg PO BEDTIME 08/03/19 Sertraline [Zoloft*] 100 mg PO BID 08/03/19 Acetaminophen [Tylenol] 325 mg PO Q8HP PRN 02/20/22 Albuterol Sulfate [Albuterol Sulfate 0.083% Neb Soln] 2.5 mg IH Q6HP PRN 02/20/22 Cetirizine HCl [Zyrtec] 10 mg PO DAILY 02/20/22 Fenofibrate [Tricor*] 160 mg PO DAILY 02/20/22 Gabapentin 300 mg PO TID 02/20/22 Tramadol HCl [Ultram] 50 mg PO Q8HP PRN 02/20/22 Trazodone [Desyrel*] 150 mg PO BEDTIME 02/20/22 Umeclidinium Brm/Vilanterol Tr [Anoro Ellipta 62.5-25 Mcg INH] 1 each IH DAILY 02/20/22 Cefepime HCl [Maxipime] 2 g IV Q12H 25 Days #1 08/07/22 Medihoney [Medihoney Woundcare Gel*] 1 appl TOP DAILY tube 08/07/22 Vancomycin/0.9 % Sod Chloride [Vanco 1.25 gm/250 ml-0.9% NaCl] 1.25 gm IV Q24H 25 Days #1 08/07/22 New Medications: Cefepime HCl [Maxipime] 2 g IV Q12H 25 Days #1 Vancomycin/0.9 % Sod Chloride [Vanco 1.25 gm/250 ml-0.9% NaCl] 1.25 gm IV Q24H 25 Days #1 Diet: AHA Activity: Fall precautions Followup: Ronan Butcher MD [ACTIVE - CAN ADMIT] - Chandan Peterson JR, DPM [ASSOCIATE-ACTIVE - CAN ADMIT] - Time spent managing pt's care (in minutes): 20
[2022-08-07] MEDS: ALBUTEROL 2.5 MG/3 ML NEB SOL NEB PRN (19:30)
[2022-08-07] MEDS: INSULIN GLARGINE 100 UNIT/ML SQ SCH (21:00)
[2022-08-07] MEDS: TRAZODONE 150 MG TAB PO SCH (21:00)
[2022-08-07 21:49] VITALS: BP 140/71; TEMP 97.5
== END 2022-08-07 22:18 | DRG 637 ==
LOC: ER 14:20 → ERHOLD 16:22 → 2ND 17:50
PROVIDERS: ADMIT Hospitalist; ATTEND Internal Medicine
PROC: 30233N1 Transfusion of Nonautologous Red Blood Cells into Peripheral Vein, Percutaneous Approach (ICD-10-PCS; principal; 2022-07-22)
PROC: 02HV33Z Insertion of Infusion Device into Superior Vena Cava, Percutaneous Approach (ICD-10-PCS; 2022-07-25)
DX: E11.69 Type 2 diabetes mellitus with other specified complication (principal); I50.33 Acute on chronic diastolic (congestive) heart failure; E44.0 Moderate protein-calorie malnutrition; L03.115 Cellulitis of right lower limb; M86.171 Other acute osteomyelitis, right ankle and foot; I11.0 Hypertensive heart disease with heart failure; E11.40 Type 2 diabetes mellitus with diabetic neuropathy, unspecified; E11.51 Type 2 diabetes mellitus with diabetic peripheral angiopathy without gangrene; E11.621 Type 2 diabetes mellitus with foot ulcer; L97.519 Non-pressure chronic ulcer of other part of right foot with unspecified severity; E87.5 Hyperkalemia; E78.2 Mixed hyperlipidemia; D63.8 Anemia in other chronic diseases classified elsewhere; E66.09 Other obesity due to excess calories; J42 Unspecified chronic bronchitis; G89.4 Chronic pain syndrome; F41.8 Other specified anxiety disorders; Z66 Do not resuscitate; Z88.5 Allergy status to narcotic agent; Z88.7 Allergy status to serum and vaccine; Z79.4 Long term (current) use of insulin; Z68.31 Body mass index [BMI] 31.0-31.9, adult; Z79.02 Long term (current) use of antithrombotics/antiplatelets; Z90.49 Acquired absence of other specified parts of digestive tract; Z99.81 Dependence on supplemental oxygen; Z96.652 Presence of left artificial knee joint; Z90.710 Acquired absence of both cervix and uterus; Z79.899 Other long term (current) drug therapy; Z20.822 Contact with and (suspected) exposure to COVID-19; Z85.118 Personal history of other malignant neoplasm of bronchus and lung; Z87.891 Personal history of nicotine dependence
CPT/HCPCS: 36415; 36430; 36569; 71045; 80048; 80053; 80202; 81003; 81015; 82607; 82746; 82805; 82947; 83540; 83605; 83735; 84100; 84439; 84443; 85014; 85018; 85025; 85044; 85610; 85652; 85730; 86140; 86850; 86900; 86901; 87040; 87086; 87088; 87811; 93005; 93925; 94010; 94640; 96361; 96365; 96366; 96375; 97161; 97530; 99285; J0360; J0692; J1170; J1815; J1940; J2175; J2405; J2916; J3370; J3420; J7030; J7040; J7050; J7613; P9016